=== PATIENT | female | born 1975 | race Caucasian/White ===

== ENCOUNTER 2017-06-30 05:36 | Day surgery (SDC) | payer MEDICARE, SELFPAY ==
--- NOTE | 2017-06-24 12:10 | EKG12_ITS ---
Test Reason : PRE OP Blood Pressure : / mmHG Vent. Rate : 062 BPM Atrial Rate : 062 BPM P-R Int : 140 ms QRS Dur : 084 ms QT Int : 410 ms P-R-T Axes : 062 017 067 degrees QTc Int : 416 ms Normal sinus rhythm Normal ECG Confirmed by JOSE MARIA CASTILLO, ADA ([id number]), slot editor JOSIE ZAMAN ([id number]) on 06/28/2017 8:39:45 AM Referred By: NIA Confirmed By:ADA MOISE MD
[2017-06-24 12:19] LABS: Hematocrit 41.9 % (37-47); Hemoglobin 13.8 g/dl (12.0-15.0); Mean Corp Hgb Conc 32.9 g/gl (32-36); Mean Corpuscular Hgb 31.7 pg (27.0-32.0); Mean Corpuscular Volume 96.1 fL (81-99); Mean Platelet Vol. 9.4 fl (6.2-12.0); Platelet Count 275 K/mm3 (150-450); RBC Distribution Width CV 12.6 % (11.6-14.6); RBC Distribution Width SD 43.1 fl (35.1-43.9); Red Blood Count 4.36 M/mm3 (4.2-5.4); Scan Indicated on CBC? Y/N NO; White Blood Count 7.4 K/mm3 (4.4-11.0)
[2017-06-24 12:34] LABS: International Normalized Ratio 0.9; Prothrombin Time (Protime)PT. 12.2 SECONDS (11.7-14.9)
[2017-06-24 12:48] LABS: ALB/GLOB Ratio 0.9 RATIO (0.9-2.4); AST(SGOT) 23 U/L (15-37); Alanine Aminotransfer ALT/SGPT 30 U/L (12-78); Albumin, Serum 3.4 g/dL (3.4-5.0); Alkaline Phosphatase 78 U/L (45-117); Anion Gap 6 (5-15); BUN 10 mg/dL (7-18); BUN/Creat Ratio 15.4 RATIO (10-20); Bilirubin, Direct 0.09 mg/dL (0.00-0.30); Calcium,Total 8.6 mg/dL (8.5-10.1); Chloride 101 mmol/L (98-107); Creatinine, Serum 0.65 mg/dL (0.55-1.02); EST Glomerular Filtration Rate 107 mL/min (>60); Est Glom Filt Rate - Afr Amer 130 mL/min (>60); Globulin 3.9 g/dL (2.3-3.5); Glucose 91 mg/dL (70-110); Potassium 4.3 mmol/L (3.5-5.1); Protein, Total 7.3 g/dL (6.4-8.2); Sodium Level 139 mmol/L (136-145)
[2017-06-24 12:58] LABS: Pregnancy, Serum, hCG Quali. NEGATIVE Negative (0-9 Nonpreg)
[2017-06-30] VITALS (12 sets, daily range): BP systolic 121–144; BP diastolic 73–90; PULSE 65–87; RESP 16–18; TEMP 36.2–37.1; O2SAT 93–100; BMI 32.0
--- NOTE | 2017-06-30 08:15 | OP.PCM_ITS ---
Report of Operation Date of Procedure: 06/30/17 Pre-Operative Diagnosis: Chronic pelvic pain, dysmenorrhea Post-Operative Diagnosis: same Surgery/Procedure Performed:: LAVH, bilateral salpingectomy Description of Surgical Findings:: Enlarged uterus. Normal ovaries and fallopian tubes. Gallbladder surgically absent. Normal appearing liver. Stomach s/p gastroplasty. Only minimal upper abdominal scarring present. assistant public defender: Rose Davis Type of Anesthesia:: General Anesthesiologist: Jeronimo Gonzalez Special Medications: pitressin injection Specimen's removed: Uterus, cervix, bilateral fallopian tubes Drains: lyon Estimated Blood Loss (mL): 50cc Fluids Replaced: 1600cc Description of Procedure: Patient was taken to the OR with IV running. She was given IV antibiotics prior to the surgery for surgical prophylaxis. SCDs were in place and operational. General anesthesia was introduced without complication. She was then prepped and draped in the dorsal lithotomy position. A lyon catheter was then placed. A weighted speculum was placed in the posterior vagina and the cervix identified and the anterior lip grasped with a single toothed tenaculum. A uterine manipulator was then placed. The speculum was removed. Attention was then directed to the abdomen. A 5mm vertical incision was made in the lower base of the umbilicus. The underlying subcutaneous tissue was dissected down to the level of fascia using a Reny clamp. The abdominal wall was then elevated and a Veress needle was placed. The abdomen was then insufflated with CO2 gas to a pressure of 12 mm Hg pressure. The Veress needle was then removed and replaced with a 5mm trocar and sleeve. The trocar was removed and a laparoscope was placed. A thorough survey of the abdomen and pelvis was then performed. Findings were as mentioned above. Two lateral 5mm laparoscopic ports were then placed approximately 3 cmm below the level of the umbilicus, lateral to the epigastric vessels. Hemostasis was excellent after placement of the ports. Attention was then directed to the left fallopian tube which was grasped and elevated. The mesosalpinx was then serially dissected with the Ligasure device from the fimbriated end to the cornua of the uterus. The left round ligament was then cauterized and cut. The broad ligament was then dissected from the cornua of the uterus close to the uterus to the level of the [id number] junction. The anterior and posterior leaves were then bluntly. The vesicouterine peritoneum was then undermined using blunt dissection. It was cut in a transverse fashion and a bladder flap was created. The left uterine artery was then cauterized and cut. The paracervical tissue was dissected down to the level of the uterosacral ligaments close to the cervix. In s similar fashion to the left side the right fallopian tube and right broad ligament were dissected. The right uterine artery was cauterized and cut. The right paracervical tissue was then dissected to the level of the right uterosacral ligament. Attention was then directed back to the vagina where a weighted speculum was placed. The uterine manipulator was removed. The cervix was grasped with two single toothed tenaculum. The cervicovaginal epithelium was then injected superficially with a dilute pitressin solution. Using the Bovie cautery the cervicovaginal epithelium was dissected circumfrentially. This tissue was pushed superiorly. The vesicouterine peritoneum was then identified and entered sharply. The posterior rectovaginal peritoneum was identified and entered sharply. A long weighted speculum was placed in the posterior defect. The uterosacral ligaments were then grasped with Justin clamps cut and suture ligated. These sutures were held for incorporation into the vagina cuff. The remaining paracervical tissue was clamped bilaterally with the Justin clamps, cut, and suture ligated. The specimen was then removed en bulk. The peritoneum was then reapproximated in the midline from anterior to posterior. The vaginal mucosa was closed in the midline with a single stitch of 0-vicryl. The cuff angles were closed with 0- vicryl interrupted sutures and incorporated in this tie was the previous held uterosacral ligament ties. The remaining vaginal cuff was reapproximated with figure of eight sutures of 0-vicryl. Hemostasis was assured in the vagina. Attention was directed back to the abdomen which again was insufflated with CO2 gas. A thorough survey of all pedicle sites found them to be hemostatic. The port sites were removed with direct visualization with the laparoscope with good hemostasis noted. The port sites were closed with subcutaneous sutures of 4-0 monocryl. The port sites were injected with 0.25% Marcaine for anesthetic purposes. The patient was reversed from anesthesia without complication. Sponge, lap, and needle counts were correct. She was taken to the recovery room in stable condition. - Complications none - Admit VTE Documentation VTE Present on Admission: No VTE Mechan Device Prophylaxis: SCD's VTE Pharm Prophylaxis ordered?: No
[2017-06-30 11:10] LABS: Pregnancy, Serum, hCG Quali. NEGATIVE Negative (0-9 Nonpreg)
--- NOTE | 2017-06-30 12:11 | PCM.DC.VHY ---
Discharge Diet: No Restrictions Discharge Activity: Return to Normal Activity, May Not Drive, May not drive while taking narcotic pain medications., May Shower Return to work on:: 08/01/17 May shower in (days): 0 May resume sexual activity in: 6 weeks Call your doctor if your incision/area has: Sudden Increased Bleeding, Increased Pain/ Swelling, Increased Redness, Foul Smelling Discharge, Swelling at the incision site Call your doctor if you observe: Fever of 101 or Higher, Inability to urinate, Inability to have a bowel movement, Using more than one pad per hour, Shortness of breath, Chest pain, Calf discomfort, Uncontrolled pain Remove Dressing in (days):: 1 Cleanse incision/area with: Soap & Water Allergies/Adverse Reactions: Allergies Penicillins [PCN] Allergy (Verified 06/23/17 14:09) Rash RAPID HEARTRATE silicone [Silicone] Allergy (Verified 06/23/17 14:09) Rash doxycycline Adverse Reaction (Verified 06/23/17 14:09) Other RAPID HEARTRATE hydrochlorothiazide Adverse Reaction (Verified 06/23/17 14:09) Other topiramate [From Topamax] Adverse Reaction (Verified 06/23/17 14:42) Chest tightness Medications to take at Discharge Duloxetine Hcl [Cymbalta] 60 mg PO BID 06/19/13 Ergocalciferol [Vitamin D] 50,000 unit PO Q7D 06/19/13 Iron 325 mg PO BID 06/19/13 Levothyroxine [Synthroid] 50 mcg PO DAILY 06/19/13 Omeprazole [Prilosec] 20 mg PO BID 06/19/13 Biotin 10 mg PO DAILY 12/22/13 Calcium Citrate/Vitamin D3 [Calcium Citrate-Vit D3 Tablet] 2 each PO BID 06/23/17 Cyanocobalamin (Vitamin B-12) [Vitamin B-12] 500 mcg PO DAILY 06/23/17 HydrOXYzine TESFAYE [Vistaril] 25 mg PO TID PRN PRN 06/23/17 Magnesium 500 mg PO DAILY 06/23/17 Pnv95/Ferrous Fumarate/FA [ Formula Tablet] 1 each PO DAILY 06/23/17 Tizanidine HCl [Zanaflex] 4 mg PO BID 06/23/17 Oxycodone [Oxyir] 10 mg PO Q6H PRN PRN #40 tablet 10/19/17 The following prescriptions were given: Oxycodone [Oxyir] 10 mg PO Q6H PRN PRN #40 tablet PRN Reason: Pain Primary Care Physician: Ronnell Moreno MD [Primary Care Provider] - Please Follow Up With: Boubacar Platt MD When: one week Proposed Discharge Date: 07/01/17
[2017-06-30] MEDS: Clindamycin 900 MG/50 ML BAG 75 MG IV (12:22)
--- NOTE | 2017-06-30 12:41 | HYST_PTH ---
PATIENT: ALFONSO TORO LOC: [facility] [place][id number] AGE/SX: 41/F ROOM: RE06/30/[address]: Dr. Boubacar Platt MD : [id number] BED: DIS: 07/01/2017 SPEC #: [id number] RECD: 06/30/17 15:32 STATUS: FAN RAUL #: [id number] LUTHER: 06/30/17 12:[address]: Boubacar Platt DEPT: SURGICAL PATHOLOGY RECD BY: Everett Kent ENTERED: 07/01/17 12:38 SP TYPE: HYSTERECT OTHR DR: Dr. Ronnell Moreno MD Tissues: Uterus, NOS Procedures: Surgery Specimen Level V HEADER OPERATION: Hysterectomy, lap, vaginal, salpingectomy PRE-OP DIAGNOSIS: Excessive and frequent menstruation with regular cycle TISSUE SUBMITTED: Uterus and bilateral fallopian tubes MICROSCOPIC DIAGNOSIS Uterus, hysterectomy: Cervix - squamous metaplasia, mild chronic inflammation and nabothian cyst. Endometrium - proliferative endometrium. Myometrium - leiomyoma and superficial adenomyosis. Bilateral fallopian tubes - no significant change. AM:rasheed 07/04/17 MICROSCOPIC DESCRIPTION Slides are reviewed. GROSS DESCRIPTION Received in fixative is one container labeled with the patient's name and designated uterus and bilateral fallopian tubes. The specimen consists of a hysterectomy specimen consisting of uterus with cervix and attached bilateral fallopian tubes. The uterus with cervix weighs 162 gm and measures 10 x 7 x 5.5 cm. The serosal surface is hassan, glistening. The ectocervical mucosa is unremarkable. The external os is oval in contour. The endocervical canal measures 3.5 cm in length and the endocervical mucosa is hassan, glistening and unremarkable. The triangular endometrial cavity measures 4.5 cm in length and 2.5 cm in width. The endometrium is congested, hemorrhagic and measures 0.1 cm in thickness. Sections of the uterine wall reveal a small hassan, nodular mass measuring 0.3 cm in greatest dimension. The uterine wall measures up to 2.5 cm in thickness. The right fallopian tube measures 6 cm in length and 0.8 cm in diameter. The fimbrial end is identified. Sections of the proximal end of the fallopian tube reveals a metallic coiled wire consistent with Essure device. The left fallopian tube measures 5.5 cm in length and 0.6 cm in diameter. The fimbrial end is identified. Sections of the proximal end of the fallopian tube also reveals a metallic coiled wire consistent with Essure device. Sections reveal unremarkable cut surfaces. House Shorer sections are submitted in nine cassettes as follows: 1 - anterior cervix, 2 - posterior cervix, 3 & 4 - anterior uterine wall, 5 & 6 - posterior uterine wall, 7 - nodular mass, entirely submitted, 8 - right fallopian tube, 9 - left fallopian tube. / GREG:rasheed 07/01/17 TC:1 CPT: 31401
[2017-06-30] MEDS: Bupivacaine 0.25% 30 ML Vial (12:58)
[2017-06-30] MEDS: Vasopressin 20 UNITS/ML Vial (12:59)
[2017-06-30] MEDS: Ketorolac 30 MG/ML Syringe IV ×3 (14:50→23:41)
[2017-06-30] MEDS: Lactated Ringers 1,000 ML 125 ML IV ×2 (15:05→17:56)
[2017-06-30] MEDS: Clindamycin 600 MG/50 ML BAG 100 MG IV ×2 (17:56→23:42)
[2017-06-30] MEDS: tiZANidine HCl 2 MG Tablet 4 MG PO (21:22)
[2017-06-30] MEDS: DULoxetine Hcl 60 MG Capsule PO (21:22)
[2017-07-01 01:45] VITALS: BP 113/72; PULSE 68; RESP 16; TEMP 36.8; O2SAT 96
[2017-07-01] MEDS: Levothyroxine 50 MCG Tablet PO (05:38)
[2017-07-01] MEDS: Ketorolac 30 MG/ML Syringe IV ×2 (05:38→12:59)
[2017-07-01 07:10] VITALS: O2SAT 96
[2017-07-01 07:34] LABS: Hematocrit 38.9 % (37-47); Hemoglobin 12.8 g/dl (12.0-15.0); Mean Corp Hgb Conc 32.9 g/gl (32-36); Mean Corpuscular Hgb 31.5 pg (27.0-32.0); Mean Corpuscular Volume 95.8 fL (81-99); Mean Platelet Vol. 10.1 fl (6.2-12.0); Platelet Count 250 K/mm3 (150-450); RBC Distribution Width CV 12.3 % (11.6-14.6); RBC Distribution Width SD 42.1 fl (35.1-43.9); Red Blood Count 4.06 M/mm3 (4.2-5.4); White Blood Count 15.3 K/mm3 (4.4-11.0)
[2017-07-01 07:35] LABS: Scan Indicated on CBC? Y/N NO
--- NOTE | 2017-07-01 07:37 | PCM.PROGNOTE ---
Subjective: POD#1 LAVH, Bilateral salpingectomy Doing well. IV out. Lion removed and has voided a sm amt immediately afterwards. Minimal pain and has had toradol only overnight. Denies any N/V and feels well. - Physical Exam General: Alert, Oriented x3, Cooperative, No apparent distress HEENT: Atraumatic Neck: Supple Abdomen: Soft Skin: Incision - L/S incisions CDI. OP sites over steristrips. Neurological: Cranial nerves II-XII grossly intact Psych/Mental Status: Normal Affect Vital Signs Temp Pulse Resp BP Pulse Ox 98.3 F 68 16 113/72 96 07/01/17 01:45 07/01/17 01:45 07/01/17 01:45 07/01/17 01:45 07/01/17 07:10 Oxygen Flow Rate 2 Oxygen Delivery Method Room Air Weight: 84.7 kg Body Mass Index (BMI) 32.0 Intake and Output for Last 24 Hours 06/29/06/30/07/01/17 23:59 23:59 23:59 Intake Total 4665 1451 Output Total 875 875 Balance 3790 576 Laboratory Tests Past 24 Hrs 06/30/17 07/01/17 10:40 07:00 WBC 15.3 H RBC 4.06 L Hgb 12.8 Hct 38.9 MCV 95.8 MCH 31.5 MCHC 32.9 RDW 12.3 RDW Differential 42.1 Plt Count 250 MPV 10.1 Serum , Qual NEGATIVE Assessment/Plan POD#1 LAVH, bilateral salpingectomy Stable postop. Dischg home today if voiding, pain control adequate and tolerating po. RTO in 1-2 wk for postop incision check as planned.
--- NOTE | 2017-07-01 07:40 | PCM.DC.SUM ---
Discharge Date and Diagnosis Date of Admission: 06/30/17 - LAVH, Bilateral salpingectomy Date of Discharge: 07/01/17 Hospital Course and Treatment Operations: - - LAVH, bilateral salpingectomy Summary of Care Provided: The patient is a 41 year old F admitted 06/30/17 for LAVH bilateral salpingectomy. Procedure uneventful. Minimal pain overnight. No N/V. Dischg to home on POD#1 when criteria met. RTO in 1-2 wk for postop incision check, or prn sooner. Discharge Diet: No Restrictions Discharge Activity: Return to Normal Activity, May Not Drive, May not drive while taking narcotic pain medications., May Shower Return to work on:: 08/01/17 May shower in (days): 0 May resume sexual activity in: 6 weeks Call your doctor if your incision/area has: Sudden Increased Bleeding, Increased Pain/ Swelling, Increased Redness, Foul Smelling Discharge, Swelling at the incision site Call your doctor if you observe: Fever of 101 or Higher, Inability to urinate, Inability to have a bowel movement, Using more than one pad per hour, Shortness of breath, Chest pain, Calf discomfort, Uncontrolled pain Remove Dressing in (days):: 1 Cleanse incision/area with: Soap & Water Home Medications: Medications to take at Discharge Duloxetine Hcl [Cymbalta] 60 mg PO BID 06/19/13 Ergocalciferol [Vitamin D] 50,000 unit PO Q7D 06/19/13 Iron 325 mg PO BID 06/19/13 Levothyroxine [Synthroid] 50 mcg PO DAILY 06/19/13 Omeprazole [Prilosec] 20 mg PO BID 06/19/13 Biotin 10 mg PO DAILY 12/22/13 Calcium Citrate/Vitamin D3 [Calcium Citrate-Vit D3 Tablet] 2 each PO BID 06/23/17 Cyanocobalamin (Vitamin B-12) [Vitamin B-12] 500 mcg PO DAILY 06/23/17 HydrOXYzine TESFAYE [Vistaril] 25 mg PO TID PRN PRN 06/23/17 Magnesium 500 mg PO DAILY 06/23/17 Pnv95/Ferrous Fumarate/FA [ Formula Tablet] 1 each PO DAILY 06/23/17 Tizanidine HCl [Zanaflex] 4 mg PO BID 06/23/17 Oxycodone [Oxyir] 10 mg PO Q6H PRN PRN #40 tablet 06/30/17 Acetaminophen [Tylenol] 1,000 mg PO Q8H PRN PRN tablet 07/01/17 Docusate Sodium [Colace] 100 mg PO BID #30 capsule 07/01/17 Oxycodone [Oxyir] 5 - 10 mg PO Q4H PRN PRN tablet 07/01/17 Following Prescrptions Were Given to Patient: Oxycodone [Oxyir] 10 mg PO Q6H PRN PRN #40 tablet PRN Reason: Pain Docusate Sodium [Colace] 100 mg PO BID #30 capsule Primary Care Physician: Ronnell Moreno MD [Primary Care Provider] - Please Follow Up With: Boubacar Platt MD When: one week Meaningful Use Info Meaningful Use Diagnoses (Choose all that apply): None applicable
[2017-07-01 07:45] VITALS: BP 120/78; PULSE 96; RESP 17; TEMP 37.4; O2SAT 98
[2017-07-01] MEDS: DULoxetine Hcl 60 MG Capsule PO (08:19)
[2017-07-01] MEDS: tiZANidine HCl 2 MG Tablet 4 MG PO (08:19)
[2017-07-01] MEDS: Pantoprazole Sodium 20 MG Tablet PO (08:19)
[2017-07-01] MEDS: oxyCODONE 5 MG Tablet PO (09:22)
[2017-07-01 13:00] VITALS: BP 114/78; PULSE 72; RESP 16; TEMP 36.7; O2SAT 99
[2017-07-01 13:49] VITALS: BP 114/78; PULSE 72; RESP 16; TEMP 36.7; O2SAT 99
== END 2017-07-01 13:43 | disposition home or self-care (01) ==
PROVIDERS: Family Provider Family Medicine; PCP Family Medicine; Visit Provider Obstetrics & Gynecology
DX: D26.1 Other benign neoplasm of corpus uteri (principal); G89.29 Other chronic pain; R10.2 Pelvic and perineal pain; N92.0 Excessive and frequent menstruation with regular cycle; N94.6 Dysmenorrhea, unspecified; N88.8 Other specified noninflammatory disorders of cervix uteri; K21.9 Gastro-esophageal reflux disease without esophagitis; D64.9 Anemia, unspecified; F32.9 Major depressive disorder, single episode, unspecified; Z98.84 Bariatric surgery status; Z86.718 Personal history of other venous thrombosis and embolism
CPT/HCPCS: 58552; 36415; 80053; 82248; 84703; 85027; 85610; 85730; 86850; 86900; 88307; 93005; 97802; J7120; J2405

== ENCOUNTER → 2017-11-03 15:57 | Outpatient (CLI) | payer MEDICARE, SELFPAY ==
[2017-11-03 17:53] LABS: Absolute Lymphocyte Count 1.84 X10^3/ul (0.83-4.51); Absolute Neutrophil Count 5.7 X10^3/uL (2.0-7.7); Basophil# 0.03 X10^3/uL; Basophil% 0.4 % (0-1); Eosinophil# 0.16 X10^3/uL; Eosinophils% 1.9 % (0-5); Hematocrit 40.7 % (37-47); Hemoglobin 13.8 g/dl (12.0-15.0); Lymphocyte # 1.84 X10^3/ul (4.0); Lymphocyte % 22.4 % (19-41); Mean Corp Hgb Conc 33.9 g/gl (32-36); Mean Corpuscular Volume 94.4 fL (81-99); Mean Platelet Vol. 10.1 fl (6.2-12.0); Monocyte# 0.45 X10^3/uL; Monocyte% 5.5 % (0-10); Neutrophil # 5.74 X10^3/uL (2.7-7.7); Neutrophil % 69.7 % (47-70); Platelet Count 281 K/mm3 (150-450); RBC Distribution Width CV 12.7 % (11.6-14.6); RBC Distribution Width SD 42.8 fl (35.1-43.9); Red Blood Count 4.31 M/mm3 (4.2-5.4); White Blood Count 8.2 K/mm3 (4.4-11.0)
[2017-11-03 17:59] LABS: POSITIVE COUNT NO; POSITIVE DIFFERENTIAL NO; POSITIVE MORPHOLOGY NO
[2017-11-03 18:07] LABS: Free T3 2.3 pg/mL (2.18-3.98); T4 Total, Thyroxin 9.2 ug/dL (4.8-13.9)
== END ==
PROVIDERS: Family Provider Family Medicine; PCP Family Medicine; Visit Provider Family Medicine
DX: E03.9 Hypothyroidism, unspecified (principal); R53.83 Other fatigue
CPT/HCPCS: 36415; 84436; 84443; 84481; 85025

== ENCOUNTER → 2018-03-24 17:49 | Outpatient (CLI) | payer MEDICARE, SELFPAY | PROVIDERS: Family Provider Family Medicine; PCP Family Medicine; Visit Provider Family Medicine | DX: L02.91 Cutaneous abscess, unspecified (principal) | CPT/HCPCS: 87070; 87205 ==

== ENCOUNTER → 2018-05-03 10:36 | Outpatient (CLI) | payer MEDICARE, SELFPAY | PROVIDERS: Family Provider Family Medicine; PCP Family Medicine; Visit Provider Family Medicine | DX: L02.91 Cutaneous abscess, unspecified (principal) | CPT/HCPCS: 87070; 87077; 87186; 87205 ==

== ENCOUNTER → 2018-06-01 13:56 | Outpatient (CLI) | payer MEDICARE, SELFPAY | PROVIDERS: Family Provider Family Medicine; PCP Family Medicine; Visit Provider Surgery | DX: L02.31 Cutaneous abscess of buttock (principal) | CPT/HCPCS: 87070; 87075; 87077; 87186; 87205 ==

== ENCOUNTER → 2018-07-20 10:21 | Outpatient (CLI) | payer MEDICARE, SELFPAY | PROVIDERS: Family Provider Family Medicine; PCP Family Medicine; Referring Provider Physician Assistant; Visit Provider Physician Assistant | DX: L02.31 Cutaneous abscess of buttock (principal) | CPT/HCPCS: 87070; 87075; 87186; 87205 ==

== ENCOUNTER → 2018-07-27 16:28 | Outpatient (CLI) | payer MEDICARE, SELFPAY | PROVIDERS: Family Provider Family Medicine; PCP Family Medicine; Referring Provider Surgery; Visit Provider Surgery | DX: L02.31 Cutaneous abscess of buttock (principal) | CPT/HCPCS: 87070; 87075; 87077; 87186; 87205 ==

== ENCOUNTER → 2018-08-11 15:15 | Outpatient (CLI) | payer MEDICARE, SELFPAY ==
--- OUTSIDE RECORDS SUMMARY | 2018-10-06 14:26 | XMS RPT_ITS ---
:1975 Author Organization OHIP Support Name Relationship Address Phone D Unavailable Unavailable Unavailable JON BEAL Unavailable [address] + [place] [address] D Unavailable Unavailable Unavailable JON BEAL Unavailable [address] + [place] [address] D Unavailable Unavailable Unavailable JON BEAL Unavailable [address] + [place] [address] D Unavailable Unavailable Unavailable JON BEAL Unavailable [address] + [place] [address] D Unavailable Unavailable Unavailable JON BAEL Unavailable [address] + [place] [address] D Unavailable Unavailable Unavailable JON BEAL Unavailable [address] + [place] [address] D Unavailable Unavailable Unavailable JON BEAL Unavailable [address] + [place] [address] D Unavailable Unavailable Unavailable JON BEAL Unavailable [address] + [place] [address] D Unavailable Unavailable Unavailable JON EBAL Unavailable [address] + [place] [address] D Unavailable Unavailable Unavailable JON BEAL Unavailable [address] + [place] [address] D Unavailable Unavailable Unavailable JON BEAL Unavailable [address] + [place] [address] D Unavailable Unavailable Unavailable JON BEAL Unavailable [address] + [place] [address] D Unavailable Unavailable Unavailable JON BEAL Unavailable [address] + [place] [address] D Unavailable Unavailable Unavailable JON BEAL Unavailable [address] + [place] [address] D Unavailable Unavailable Unavailable JON BEAL Unavailable [address] + [place] [address] D Unavailable Unavailable Unavailable JON BEAL Unavailable [address] + [place] [address] D Unavailable Unavailable Unavailable JON BEAL Unavailable [address] + [place] [address] D Unavailable Unavailable Unavailable JON BEAL Unavailable [address] + [place] [address] JON BOWSER Unavailable Unavailable + D Unavailable Unavailable Unavailable JON BEAL Unavailable [address] + [place] [address] JON BOWSER Unavailable Unavailable + D Unavailable Unavailable Unavailable JON BEAL Unavailable [address] + [place] [address] Care Team Providers Name Role Phone Marielle, Dr. Melissa Medrano Attending Unavailable Marielle, Melissa Medrano Admitting Unavailable Marielle, Melissa Medrano Attending Unavailable Melissa Palomares Referring Unavailable Josh, Dr. Ronnell Moreno Primary Care Unavailable Moreno, Ronnell Attending Unavailable MorenoRonnell jo Primary Care Unavailable Ronnell Moreno Attending Unavailable MorenoRonnell jo Primary Care Unavailable Ronnell Moreno Referring Unavailable Ronnell Moreno Attending Unavailable Ronnell Moreno Referring Unavailable Ronnell Moreno Primary Care Unavailable Robotham, Florence Attending Unavailable MorenoRonnell jo Referring Unavailable MorenoRonnell jo Primary Care Unavailable Robotham, Florence Attending Unavailable Robotham, Florence Referring Unavailable MorenoRonnell jo Primary Care Unavailable Robotham, Florence Attending Unavailable Ronnell Moreno Referring Unavailable Robotham, Florence Attending Unavailable Ronnell Moreno Primary Care Unavailable Robotham, Florence Referring Unavailable Robotham, Florence Attending Unavailable MorenoRonnell Referring Unavailable Robotham, Florence Attending Unavailable MorenoRonnell Referring Unavailable Robotham, Florence Attending Unavailable Robotham, Florence Attending Unavailable MorenoRonnell jo Referring Unavailable Robotham, Florence Attending Unavailable Robotham, Florence Referring Unavailable Luis Alberto Platt Attending Unavailable Luis Alberto Platt Referring Unavailable MorenoRonnell jo Primary Care Unavailable Robotham, Florence Attending Unavailable Rc MCKEON-CPhilomena Attending Unavailable Rc LINDO, Philomena Referring Unavailable Ronnell Moreno Primary Care Unavailable Robotham, Florence Attending Unavailable LEO GRADY Referring Unavailable Robotham, Florence Attending Unavailable Robotham, Florence Referring Unavailable Moreno, Ronnell Primary Care Unavailable Robotham, Florence Attending Unavailable Robotham, Florence Attending Unavailable Robotham, Florence Referring Unavailable Moreno, Rnonell Primary Care Unavailable Robotham, Florence Attending Unavailable Moreno, Ronnell Referring Unavailable GORTY, BELKYS A Referring Unavailable GORTY, BELKYS A Attending Unavailable GORTY, BELKYS A Referring Unavailable BHARTI WELSH (RD) Attending Unavailable GORTY, BELKYS A Referring Unavailable THUY LEMON (ROLL WEIGHER) Attending Unavailable DAO NOLAN (GOLD BEATER) Attending Unavailable CEBUL III, MICHELLE A Referring Unavailable GORTY, BELKYS A Attending Unavailable GORTY, BELKYS A Referring Unavailable BHARTI WELSH (RD) Attending Unavailable GORTY, BELKYS A Referring Unavailable GORTY, BELKYS A Referring Unavailable GORTY, BELKYS A Attending Unavailable GORTY, BELKYS A Referring Unavailable GORTY, BELKYS A Referring Unavailable Vick, [place] P Attending Unavailable Cebul, Michelle A Primary Care Unavailable Vick, Mao P Attending Unavailable Cebul, Michelle A Primary Care Unavailable Von Nolan Attending Unavailable Cebul, Michelle A Primary Care Unavailable Vick, [place] P Attending Unavailable Vick, [place] P Attending Unavailable Vick, [place] P Attending Unavailable Vick, Mao P Attending Unavailable Cebul, Michelle A Primary Care Unavailable Von Nolan Attending Unavailable Cebul, Michelle A Primary Care Unavailable PROBLEMS PROBLEMS DATE TYPE CONDITION / CODE ATTENDING STATUS SOURCE 08/11/2018 Unknown L02.31 - Cutaneous [place], Active [place] abscess of buttock [facility] Community / L02.31(ICD-10) Hospital Repository 06/27/2018 Unknown L02.91 - Cutaneous [place]am, Active [place] abscess, [place] Community unspecified / Hospital L02.91(ICD-10) Repository 04/17/2018 Active Liver disease, NA Active [place] unspecified / Clinic Main K76.9(ICD-10) [place] Repository 04/17/2018 Active Overweight / NA Active [place] E66.3(ICD-10) Clinic Main [place] Repository 07/29/2015 Active Hypothyroidism, NA Active [place] unspecified / Clinic Main E03.9(ICD-10) [place] Repository 01/20/2011 Active Vitamin D NA Active [place] deficiency, Clinic Main unspecified / [place] E55.9(ICD-10) Repository 02/10/2018 Active Other injury of NA Active [place] unspecified body Clinic Main region, initial [place] encounter / Repository T14.8XXA(ICD-10) 02/10/2018 Active Unknown / DAO NOLAN Malik Active [facility] UNK(Unknown) (GOLD BEATER) Clinic Main [place] Repository 01/20/2018 Admitting Unknown / Vick, Active [facility] Medical diagnosis UNK(Unknown) [facility] [place] Repository 12/13/[address] 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, not Clinic Main elsewhere [place] classified / Repository K91.2(ICD-10) 11/25/2017 Active Bariatric surgery NA Active [place] status / Clinic Main Z98.84(ICD-10) [place] Repository 11/03/2017 Unknown E03.9 - Ronnell Moreno Active [facility] Hypothyroidism, Community unspecified / Hospital E03.9(ICD-10) Repository 11/03/2017 Unknown R53.83 - Other Ronnell Moreno Active [facility] fatigue / Community R53.83(ICD-10) Hospital Repository PROCEDURES PROCEDURES No Procedure Records FoundRESULTS RESULTS SURGERY VISIT REPORT Observed: 08/25/2018 Status: F Source: [place] 2:25 PM [facility] REPOSITORY [facility] [address] [place] [address]. [address] [place] [address] OFFICE VISIT Date of Service: 08/18/18 MR#: [id number] Acct: [id number] Name: TASHA TORO Rep #: [id number] : 1975 Provider: [place] Mario MD Age/Sex: 42/F Location: [facility] Status: Signed Intake Intake Visit Reasons: buttock abscess Farm Reporter Required: No Is patient in pain?: No Allergies Penicillins [PCN] Allergy (Verified 08/21/18 09:01) Rash silicone [Silicone] Allergy (Verified 08/21/18 09:01) Rash doxycycline Adverse Reaction (Verified 08/21/18 09:01) Other hydrochlorothiazide Adverse Reaction (Verified 08/21/18 09:01) Other topiramate [From Topamax] Adverse Reaction (Verified 08/21/18 09:01) Chest tightness Medications Duloxetine Hcl [Cymbalta] 60 mg PO BID 06/19/13 [History Confirmed 08/21/18] Ergocalciferol [Vitamin D] 50,000 unit PO Q7D 06/19/13 [History Confirmed 08/21/18] Iron 325 mg PO BID 06/19/13 [History Confirmed 08/21/18] Levothyroxine [Synthroid] 50 mcg PO DAILY 06/19/13 [History Confirmed 08/21/18] Omeprazole [Prilosec] 20 mg PO BID 06/19/13 [History Confirmed 08/21/18] Biotin 10 mg PO DAILY 12/22/13 [History Confirmed 08/21/18] Calcium Citrate/Vitamin D3 [Calcium Citrate-Vit D3 Tablet] 2 ea PO BID 06/23/17 [History Confirmed 08/21/18] Cyanocobalamin (Vitamin B-12) [Vitamin B-12] 500 mcg PO DAILY 06/23/17 [History Confirmed 08/21/18] Magnesium 500 mg PO DAILY 06/23/17 [History Confirmed 08/21/18] Pnv No.95/Ferrous Fum/Folic AC [ Formula Tablet] 1 ea PO DAILY 06/23/17 [History Confirmed 08/21/18] Tizanidine HCl [Zanaflex] 4 mg PO BID 06/23/17 [History Confirmed 08/21/18] hydrOXYzine pamoate capsule [Vistaril pamoate capsule] 25 mg PO TID PRN PRN 06/23/17 [History Confirmed 08/21/18] Acetaminophen [Tylenol] 1,000 mg PO Q8H PRN PRN tab 07/01/17 [Rx Confirmed 08/21/18] Docusate Sodium [Colace] 100 mg PO BID #30 cap 07/01/17 [Rx Confirmed 08/21/18] zonisamide 100 mg capsule 400 mg PO DAILY cap 05/08/18 [History Confirmed 08/21/18] metronidazole 500 mg tablet 500 mg PO TID #42 tab 06/27/18 [Rx Confirmed 08/21/18] doxycycline monohydrate 100 mg capsule 100 mg PO BID #20 cap 08/18/18 [Rx Confirmed 08/18/18] [facility] Medical History Hx of hysterectomy (Acute) Hemorrhoids (Acute) Acid reflux (Acute) Anxiety (Acute) Arthritis (Acute) Thyroid disorder (Acute) Surgical History Hx of gastric bypass (Acute) Hx of cholecystectomy (Acute) History of carpal tunnel surgery of left wrist (Acute) I AND D right buttock abscess (Acute) Family History Mother Diabetes Cancer Hypertension Heart disease Father Heart disease Hypertension Brother Hypertension Asthma Social History Smoking Status: Never smoker second hand exposure: No alcohol intake: never substance use type: does not use caffeine: Yes what type of physical activity do you participate in: walking seatbelt use: always HPI HPI HPI: TASHA DE, is a 42 F who presents to the office today for right buttock abscess patient still having greenish drainage with packing twice daily with half inch iodoform. Patient has stopped the sits baths and only uses saline to irrigate before packing. Patient denies any pain at site Exam Const General: cooperative, comfortable, no acute distress Skin Other: Right buttock abscess, I AND D site superficially healing well, depth is still about 2 and half centimeters, still has some greenish drainage on pack seen., Nontender Assessment AND Plan Problems 1. Abscess of buttock, right L02.31 Plan We will continue packing with iodoform twice daily along with saline irrigation. Will call in prescription for Doxycycline 100 mg p.o. twice daily for another 10 days. Follow-up in 1 week Florence Mario M.D. Pager: [phone] [facility] [address] [place] [address], Outpatient [place], [address] [place] [id number] Office: [phone] Medications Refilled: Coding Level of Care Code Off vis,est,level 3 Diagnoses Abscess of buttock, right L02.31 08/25/18 3495 <Electronically signed by Florence Mario MD> Date Florence Mario MD Cosigner Signature: Date (if applicable) CC: SURGERY VISIT REPORT Observed: 08/25/2018 Status: F Source: [place] 2:22 PM [facility] REPOSITORY [facility] [address] [place] [address]. [address] [place] [address] OFFICE VISIT Date of Service: 08/25/18 MR#: [id number] Acct: [id number] Name: TASHA TORO Porsche Rep #: [id number] : 1975 Provider: Florence Mario MD Age/Sex: 42/F Location: [facility] Status: Signed Intake Intake Visit Reasons: buttock abscess Chief Complaint: I AND D buttock abscess Farm Reporter Required: No Accompanied by: None Is patient in pain?: No Allergies Penicillins [PCN] Allergy (Verified 08/21/18 09:01) Rash silicone [Silicone] Allergy (Verified 08/21/18 09:01) Rash doxycycline Adverse Reaction (Verified 08/21/18 09:01) Other hydrochlorothiazide Adverse Reaction (Verified 08/21/18 09:01) Other topiramate [From Topamax] Adverse Reaction (Verified 08/21/18 09:01) Chest tightness Medications Duloxetine Hcl [Cymbalta] 60 mg PO BID 06/19/13 [History Confirmed 08/21/18] Ergocalciferol [Vitamin D] 50,000 unit PO Q7D 06/19/13 [History Confirmed 08/21/18] Iron 325 mg PO BID 06/19/13 [History Confirmed 08/21/18] Levothyroxine [Synthroid] 50 mcg PO DAILY 06/19/13 [History Confirmed 08/21/18] Omeprazole [Prilosec] 20 mg PO BID 06/19/13 [History Confirmed 08/21/18] Biotin 10 mg PO DAILY 12/22/13 [History Confirmed 08/21/18] Calcium Citrate/Vitamin D3 [Calcium Citrate-Vit D3 Tablet] 2 ea PO BID 06/23/17 [History Confirmed 08/21/18] Cyanocobalamin (Vitamin B-12) [Vitamin B-12] 500 mcg PO DAILY 06/23/17 [History Confirmed 08/21/18] Magnesium 500 mg PO DAILY 06/23/17 [History Confirmed 08/21/18] Pnv No.95/Ferrous Fum/Folic AC [ Formula Tablet] 1 ea PO DAILY 06/23/17 [History Confirmed 08/21/18] Tizanidine HCl [Zanaflex] 4 mg PO BID 06/23/17 [History Confirmed 08/21/18] hydrOXYzine pamoate capsule [Vistaril pamoate capsule] 25 mg PO TID PRN PRN 06/23/17 [History Confirmed 08/21/18] Acetaminophen [Tylenol] 1,000 mg PO Q8H PRN PRN tab 07/01/17 [Rx Confirmed 08/21/18] Docusate Sodium [Colace] 100 mg PO BID #30 cap 07/01/17 [Rx Confirmed 08/21/18] zonisamide 100 mg capsule 400 mg PO DAILY cap 05/08/18 [History Confirmed 08/21/18] metronidazole 500 mg tablet 500 mg PO TID #42 tab 06/27/18 [Rx Confirmed 08/21/18] doxycycline monohydrate 100 mg capsule 100 mg PO BID #20 cap 08/18/18 [Rx Confirmed 08/18/18] [facility] Medical History Hx of hysterectomy (Acute) Hemorrhoids (Acute) Acid reflux (Acute) Anxiety (Acute) Arthritis (Acute) Thyroid disorder (Acute) Surgical History Hx of gastric bypass (Acute) Hx of cholecystectomy (Acute) History of carpal tunnel surgery of left wrist (Acute) I AND D right buttock abscess (Acute) Family History Mother Diabetes Cancer Hypertension Heart disease Father Heart disease Hypertension Brother Hypertension Asthma Social History Smoking Status: Never smoker second hand exposure: No alcohol intake: never substance use type: does not use caffeine: Yes what type of physical activity do you participate in: walking seatbelt use: always HPI HPI HPI: TASHA BEAL, is a 42 F who presents to the office today for follow-up of right buttock abscess. Patient has been on doxycycline for a couple weeks. She is still having some yellow/light green drainage when changing her iodoform packing which she is doing twice daily. She is also irrigating with saline prior to packing. Exam Const General: cooperative, comfortable, no acute distress Skin Other: Right buttock abscess, has improved a little bit as far as depth is about 2 cm from the 3 cm however she is still having light greenish drainage after being on a couple weeks of antibiotics, the more superficial wound is healing well however we do need this to stay open in order for it to heal from the inside out. Assessment AND Plan Problems 1. 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 She did undergo an I AND D in the office and has been on multiple weeks of antibiotics with not much improvement. Discussed patient to go to the best to undergo an I AND D of the right buttock abscess in the OR with MAC, for better visualization at the base to see if there is an area that keeps causing this recurrent infection to continue. Discussed risks including but not limited to bleeding, infection, and anesthesia. Discussed patient that she would still be doing some packing after the procedure. It was agreeable with plan had no further questions at this time. Florence Mario M.D. Pager: [phone] [facility] [address] [place] [address], [facility], [address] [place] [address] Office: [phone] Plan Detail Follow Up will schedule I AND D in OR Coding Level of Care Code Off vis,est,level 3 Diagnoses Abscess of buttock, right L02.31 08/25/18 1422 <Electronically signed by Florence Mario MD> Date Florence Greene Signature: Date (if applicable) CC: SCREENING MAMM (CAD), Observed: 08/25/2018 Status: F Source: [place] 12:35 PM [facility] REPOSITORY [facility] Services [address] [place] [address] SCREENING MAMM (CAD), BILAT MR#: [id number] Acct: [id number] Name: TASHA TORO Rep #: [id number] : 1975 F 42 From: Trent Gresham MD PCP: Ronnell Moreno MD Status: REG CLI Study: SCREENING MAMM (CAD), BILAT Date of Exam: 08/25/18 Exam# [id number] Ordering Dr: Luis Alberto Platt MD MAMMOGRAPHY - BILATERAL SCREENING REASON FOR EXAM: Female, 42 years old. Routine annual screening examination. PERTINENT HISTORY: Non-contributory. TECHNIQUE: Digital bilateral breast paul (3D mammographic acquisition) in the CC and MLO projections. 2-D mediolateral oblique (MLO) and craniocaudad (CC) views of both breasts were obtained. CAD: Full Field Digital Mammography with Computer Added Detection was performed. COMPARISON: Comparison is made with prior study dated May 27, 2017. FINDINGS: Breast Composition: There are scattered areas of fibroglandular density. There are no dominant masses or suspicious calcifications. No other significant abnormalities are identified. There has been no significant change since the prior study. BI/SCREENING MAMM (CAD), BILAT IMPRESSION: Stable bilateral screening mammogram. Yearly follow-up mammogram recommended. (A) ASSESSMENT CATEGORY: BIRADS Category 1: Negative. A letter regarding these results will be sent to the patient by the facility within 30 days. Approximately 10% of breast cancers are not detected by mammography. A normal mammogram should not delay biopsy of a clinically suspicious abnormality. [id number] Electronically Signed: Trent Gresham MD at 14:44 EST Tel [phone], Service support , CC: Luis Alberto Platt MD; Ronnell Moreno MD Chair Upholsterer: Signed PTH, INTACT Collected: 08/24/2018 Status: F Source: [place] 12:36 PM [facility] REPOSITORY TYPE CODE TESTS RESULT OUT OF REFERENCE UNITS RANGE LAB PTH 15-65 pg/mL PTH, Intact 46 Performed By: #### PTHI, B12 #### [facility] [address] [place] [id number] VITAMIN B12 Collected: 08/24/2018 Status: F Source: [place] 12:36 PM [facility] REPOSITORY TYPE CODE TESTS RESULT OUT OF REFERENCE UNITS RANGE LAB B12 232-1245 pg/mL Vitamin B12 529 Performed By: #### PTHI, B12 #### [facility] [address] [place] [id number] FOLATE, SERUM Collected: 08/24/2018 Status: F Source: [place] 12:36 PM [facility] REPOSITORY TYPE CODE TESTS RESULT OUT OF REFERENCE UNITS RANGE LAB SERFOL >4.7 ng/mL Folate, >20.0 Serum Result Comment: A result of > 20 ng/mL is not necessarily indicative of a pathologic or treatable condition: it reflects a limitation of the test methodology. Assay reference range: 4.8 to 24.2 ng/mL. Suitable for detection of folate deficiency. Reference: Folate III (Folate III) [package insert V 1.0 Niuean]. [facility], [place], [place]: July 2015. Performed By: #### SERFOL #### [facility] [address] [place], [place] [address] Observed: 08/11/2018 Status: F Source: [place] CULTURE, WOUND 2:00 PM [facility] REPOSITORY Gram Stain Gram Stain 2+ White Blood Cells 2+ Red Blood Cells Very Rare Gram positive cocci Wound Culture ORGANISM 1: Staphylococcus aureus Amount Growth Rare Staphylococcus aureus: REACTION Benzylpenicillin NF <=0.03 R Cefoxitin *NF - Clindamycin $$ <=0.25 R Inducable Clindamycin Resistan + Erythromycin $ >=8 R Gentamicin $ <=0.5 S Levofloxacin $ <=0.12 S Linezolid $$$$ 1 S Moxifloxicin *NF <=0.25 S Oxacillin NF <=0.25 S Tigecycline $$$$ <=0.12 S Rifampin $$ <=0.5 S Tetracycline NF >=16 R Trimethoprim/Sulfametho $ <=10 S Vancomycin $ <=0.5 S (NF) indicates non-formulary drug at [facility]. Approval by Infectious Disease Specialist required before non-formulary drugs may be ordered and/or dispensed. * CLSI guidelines does not recommend testing of cephalosporins. This interpretation is deduced from Beta-lactam/penicillin results. Performed By: #### [id number] #### [facility] [address] [place], [place], [id number] SURGERY VISIT REPORT Observed: 07/27/2018 Status: F Source: [place] 3:04 PM [facility] REPOSITORY [facility] [address] [place] [address] OFFICE VISIT Date of Service: 07/27/18 MR#: [id number] Acct: [id number] Name: TASHA DE Rep #: [id number] : 1975 Provider: Florence Mario MD Age/Sex: 42/F Location: [facility] Status: Signed Intake Intake Visit Reasons: I AND D Buttock Abscess Chief Complaint: I AND D buttock abscess Farm Reporter Required: No Is patient in pain?: No Allergies Penicillins [PCN] Allergy (Verified 07/27/18 14:26) Rash silicone [Silicone] Allergy (Verified 07/27/18 14:26) Rash doxycycline Adverse Reaction (Verified 07/27/18 14:26) Other hydrochlorothiazide Adverse Reaction (Verified 07/27/18 14:26) Other topiramate [From Topamax] Adverse Reaction (Verified 07/27/18 14:26) Chest tightness Medications Duloxetine Hcl [Cymbalta] 60 mg PO BID 06/19/13 [History Confirmed 07/27/18] Ergocalciferol [Vitamin D] 50,000 unit PO Q7D 06/19/13 [History Confirmed 07/27/18] Iron 325 mg PO BID 06/19/13 [History Confirmed 07/27/18] Levothyroxine [Synthroid] 50 mcg PO DAILY 06/19/13 [History Confirmed 07/27/18] Omeprazole [Prilosec] 20 mg PO BID 06/19/13 [History Confirmed 07/27/18] Biotin 10 mg PO DAILY 12/22/13 [History Confirmed 07/27/18] Calcium Citrate/Vitamin D3 [Calcium Citrate-Vit D3 Tablet] 2 ea PO BID 06/23/17 [History Confirmed 07/27/18] Cyanocobalamin (Vitamin B-12) [Vitamin B-12] 500 mcg PO DAILY 06/23/17 [History Confirmed 07/27/18] Magnesium 500 mg PO DAILY 06/23/17 [History Confirmed 07/27/18] Pnv95/Ferrous Fumarate/FA [ Formula Tablet] 1 ea PO DAILY 06/23/17 [History Confirmed 07/27/18] Tizanidine HCl [Zanaflex] 4 mg PO BID 06/23/17 [History Confirmed 07/27/18] hydrOXYzine pamoate capsule [Vistaril pamoate capsule] 25 mg PO TID PRN PRN 06/23/17 [History Confirmed 07/27/18] Acetaminophen [Tylenol] 1,000 mg PO Q8H PRN PRN tab 07/01/17 [Rx Confirmed 07/27/18] Docusate Sodium [Colace] 100 mg PO BID #30 cap 07/01/17 [Rx Confirmed 07/27/18] zonisamide 100 mg capsule 400 mg PO DAILY cap 05/08/18 [History Confirmed 07/27/18] metronidazole 500 mg tablet 500 mg PO TID #42 tab 06/27/18 [Rx Confirmed 07/27/18] Subjective Details: Patient presents status post I AND D of right buttock abscess. Patient states her 's been packing this twice a day with iodoform. She states there is still some greenish drainage on dressing when removed. Her cultures showed numerous staph epidermidis and question whether it could be skin contamination. She has not been on any additional antibiotics and she finished her last dose of doxycycline and Flagyl just after the I AND D. Patient denies any pain at the site. Objective Details: Right buttock inferior: Wound opening with no erythema, nontender, dressing did have a little bit of greenish drainage once it was removed. This area was recultured in office to see if the previous culture was in fact contamination or not Assessment AND Plan Problems 1. Abscess of buttock, right L02.31 Plan Status post I AND D. Continue packing with iodoform twice daily. Will await the new wound culture to see if she would benefit from any antibiotics. Currently is nontender with only minimal drainage on the dressing. Follow-up in 1-2 weeks due to the holiday. Florence Mario M.D. Pager: [phone] [facility] [address] [place] [address], [address] [place] [address] Office: [phone] Orders Orders: Plan Detail Follow Up 1-2 weeks Coding Level of Care Code Global Post Op Diagnoses Abscess of buttock, right L02.31 07/27/18 1504 <Electronically signed by Florence Mario MD> Date Florence Mario MD Cosigner Signature: Date (if applicable) CC: Observed: 07/27/2018 Status: F Source: [place] CULTURE, DEEP WOUND 2:30 PM [facility] REPOS[facility]ORY Gram Stain Gram Stain 4+ Red Blood Cells No organisms seen No White Blood Cells Wound Culture ORGANISM 1: Staphylococcus aureus Amount Growth 2+ Staphylococcus aureus: REACTION Benzylpenicillin NF >=0.5 R Cefoxitin *NF - Clindamycin $$ <=0.25 S Inducable Clindamycin Resistan - Erythromycin $ <=0.25 S Gentamicin $ <=0.5 S Levofloxacin $ <=0.12 S Linezolid $$$$ 2 S Moxifloxicin *NF <=0.25 S Oxacillin NF <=0.25 S Tigecycline $$$$ <=0.12 S Rifampin $$ <=0.5 S Tetracycline NF <=1 S Trimethoprim/Sulfametho $ <=10 S Vancomycin $ 1 S (NF) indicates non-formulary drug at [facility]. Approval by Infectious Disease Specialist required before non-formulary drugs may be ordered and/or dispensed. * CLSI guidelines does not recommend testing of cephalosporins. This interpretation is deduced from Beta-lactam/penicillin results. Cult, Anaerobic No anaerobic bacteria isolated. Performed By: #### [id number] #### [facility] [address]. [place], [place], [address] SURGERY VISIT REPORT Observed: 07/21/2018 Status: F Source: [place] 11:39 AM [facility] REPOSITORY [facility] [address] [place] [address] OFFICE VISIT Date of Service: 07/20/18 MR#: [id number] Acct: [id number] Name: TASHA DE Rep #: [id number] : 1975 Provider: Florence Mario MD Age/Sex: 42/F Location: [facility] Status: Signed Intake Intake Visit Reasons: I AND D Buttock Abscess Chief Complaint: I AND D buttock abscess Farm Reporter Required: No Is patient in pain?: Yes Allergies Penicillins [PCN] Allergy (Verified 07/20/18 09:16) Rash silicone [Silicone] Allergy (Verified 07/20/18 09:16) Rash doxycycline Adverse Reaction (Verified 07/20/18 09:16) Other hydrochlorothiazide Adverse Reaction (Verified 07/20/18 09:16) Other topiramate [From Topamax] Adverse Reaction (Verified 07/20/18 09:16) Chest tightness Medications Duloxetine Hcl [Cymbalta] 60 mg PO BID 06/19/13 [History Confirmed 07/18/18] Ergocalciferol [Vitamin D] 50,000 unit PO Q7D 06/19/13 [History Confirmed 07/18/18] Iron 325 mg PO BID 06/19/13 [History Confirmed 07/18/18] Levothyroxine [Synthroid] 50 mcg PO DAILY 06/19/13 [History Confirmed 07/18/18] Omeprazole [Prilosec] 20 mg PO BID 06/19/13 [History Confirmed 07/18/18] Biotin 10 mg PO DAILY 12/22/13 [History Confirmed 07/18/18] Calcium Citrate/Vitamin D3 [Calcium Citrate-Vit D3 Tablet] 2 ea PO BID 06/23/17 [History Confirmed 07/18/18] Cyanocobalamin (Vitamin B-12) [Vitamin B-12] 500 mcg PO DAILY 06/23/17 [History Confirmed 07/18/18] Magnesium 500 mg PO DAILY 06/23/17 [History Confirmed 07/18/18] Pnv95/Ferrous Fumarate/FA [ Formula Tablet] 1 ea PO DAILY 06/23/17 [History Confirmed 07/18/18] Tizanidine HCl [Zanaflex] 4 mg PO BID 06/23/17 [History Confirmed 07/18/18] hydrOXYzine pamoate capsule [Vistaril pamoate capsule] 25 mg PO TID PRN PRN 06/23/17 [History Confirmed 07/18/18] Acetaminophen [Tylenol] 1,000 mg PO Q8H PRN PRN tab 07/01/17 [Rx Confirmed 07/18/18] Docusate Sodium [Colace] 100 mg PO BID #30 cap 07/01/17 [Rx Confirmed 07/18/18] zonisamide 100 mg capsule 400 mg PO DAILY cap 05/08/18 [History Confirmed 07/18/18] metronidazole 500 mg tablet 500 mg PO TID #42 tab 06/27/18 [Rx Confirmed 07/18/18] Is last menstrual period known: No Post menopausal: Yes Patient : No PFSH Medical History Hx of hysterectomy (Acute) Hemorrhoids (Acute) Acid reflux (Acute) Anxiety (Acute) Arthritis (Acute) Thyroid disorder (Acute) Surgical History Hx of gastric bypass (Acute) Hx of cholecystectomy (Acute) History of carpal tunnel surgery of left wrist (Acute) Family History Mother Diabetes Cancer Hypertension Heart disease Father Heart disease Hypertension Brother Hypertension Asthma Social History Smoking Status: Never smoker second hand exposure: No alcohol intake: never substance use type: does not use caffeine: Yes what type of physical activity do you participate in: walking seatbelt use: always HPI HPI HPI: TASHA DE, is a 42 F who presents to the office today for I AND D of right buttock abscess due to recurrent abscess after 3 weeks of antibiotics. Exam Const General: cooperative, comfortable, no acute distress Skin Other: Right inferior buttock wound appears to be almost closed again Office Procedures Incision and Drainage Procedure performed by: violet Informed consent given: Yes Consent signed: Yes Time out checklist: patient, procedure, site marked/identified, positioning of patient, supplies available, allergies confirmed, team agrees on procedure Time out staff in room: Yes Time out verified: Yes Time out date: 07/20/18 Location: [facility] office Anesthesia: local Incision with: #11 blade Drainage quality: minimal-none Probed cavity: Yes Culture taken: Yes Lesion: drainage (minimal on dressing) Lesion size (cm): 2 (opening now 7mm x7mm [place], 2 cm depth about 1 cm in width) Cavity management: irrigated, packing Dressing: other (1/4 iodoform) Patient tolerated procedure: well Complications: No Procedure Time Out Time Out Informed consent given: Yes Consent signed: Yes Time out checklist: patient, procedure, site marked/identified, positioning of patient, supplies available, allergies confirmed, team agrees on procedure Time out staff in room: Yes Time out verified: Yes Time out date: 07/20/18 Time out time: 09:20 Assessment AND Plan Problems 1. Abscess of buttock, right L02.31 Plan Patient tolerated I AND D well. Plan to continue packing so this can allow to heal from the inside out as it seems that it was just closing over the skin however never truly healing even with the antibiotics. We will continue packing twice daily patient is agreeable with plan follow-up in 1 week. Cultures were obtained will await for sensitivities prior to giving any additional antibiotics. Florence Mario M.D. Pager: [phone] [facility] [address] [place] [address], [facility], [address] [place] [address] Office: [phone] Orders Orders: Plan Detail Follow Up 1 Week Coding Level of Care Code Attention [employer] Diagnoses Abscess of buttock, right L02.31 Comment [id number] was performed on 07/20/18 07/21/18 1139 <Electronically signed by Florence Mario MD> Date Florence Mario MD Cosigner Signature: Date (if applicable) CC: Ronnell Moreno MD Observed: 07/20/2018 Status: F Source: [place] CULTURE, DEEP WOUND 11:43 AM [facility] RE[facility] Gram Stain Gram Stain 1+ Red Blood Cells No White Blood Cells No organisms seen Wound Culture Clinical correlation necessary, Possible skin contamination. ORGANISM 1: Staphylococcus epidermidis Amount Growth Rare Staphylococcus epidermidis: REACTION Benzylpenicillin NF >=0.5 R Cefoxitin *NF + Clindamycin $$ <=0.25 R Inducable Clindamycin Resistan + Erythromycin $ >=8 R Gentamicin $ 8 I Levofloxacin $ 4 I Linezolid $$$$ 1 S Oxacillin NF >=4 R Tigecycline $$$$ 0.5 S Rifampin $$ <=0.5 S Tetracycline NF >=16 R Vancomycin $ 2 S (NF) indicates non-formulary drug at [facility]. Approval by Infectious Disease Specialist required before non-formulary drugs may be ordered and/or dispensed. * CLSI guidelines does not recommend testing of cephalosporins. This interpretation is deduced from Beta-lactam/penicillin results. Cult, Anaerobic No anaerobic bacteria isolated. Performed By: #### M100.1500 #### [facility] [address] [place] [address]. [place], [address] SURGERY VISIT REPORT Observed: 07/19/2018 Status: F Source: [place] 2:31 PM [facility] RE[facility] [address] [place], [place] [id number] OFFICE VISIT Date of Service: 07/18/18 MR#: [id number] Acct: [id number] Name: TASHA DE Rep #: [id number] : 1975 Provider: Florence Mario MD Age/Sex: 42/F Location: [facility] Status: Signed Intake Intake Visit Reasons: recheck buttock abscess Farm Reporter Required: No Is patient in pain?: No Allergies Penicillins [PCN] Allergy (Verified 07/18/18 10:27) Rash silicone [Silicone] Allergy (Verified 07/18/18 10:27) Rash doxycycline Adverse Reaction (Verified 07/18/18 10:27) Other hydrochlorothiazide Adverse Reaction (Verified 07/18/18 10:27) Other topiramate [From Topamax] Adverse Reaction (Verified 07/18/18 10:27) Chest tightness Medications Duloxetine Hcl [Cymbalta] 60 mg PO BID 06/19/13 [History Confirmed 07/18/18] Ergocalciferol [Vitamin D] 50,000 unit PO Q7D 06/19/13 [History Confirmed 07/18/18] Iron 325 mg PO BID 06/19/13 [History Confirmed 07/18/18] Levothyroxine [Synthroid] 50 mcg PO DAILY 06/19/13 [History Confirmed 07/18/18] Omeprazole [Prilosec] 20 mg PO BID 06/19/13 [History Confirmed 07/18/18] Biotin 10 mg PO DAILY 12/22/13 [History Confirmed 07/18/18] Calcium Citrate/Vitamin D3 [Calcium Citrate-Vit D3 Tablet] 2 ea PO BID 06/23/17 [History Confirmed 07/18/18] Cyanocobalamin (Vitamin B-12) [Vitamin B-12] 500 mcg PO DAILY 06/23/17 [History Confirmed 07/18/18] Magnesium 500 mg PO DAILY 06/23/17 [History Confirmed 07/18/18] Pnv95/Ferrous Fumarate/FA [ Formula Tablet] 1 ea PO DAILY 06/23/17 [History Confirmed 07/18/18] Tizanidine HCl [Zanaflex] 4 mg PO BID 06/23/17 [History Confirmed 07/18/18] hydrOXYzine pamoate capsule [Vistaril pamoate capsule] 25 mg PO TID PRN PRN 06/23/17 [History Confirmed 07/18/18] Acetaminophen [Tylenol] 1,000 mg PO Q8H PRN PRN tab 07/01/17 [Rx Confirmed 07/18/18] Docusate Sodium [Colace] 100 mg PO BID #30 cap 07/01/17 [Rx Confirmed 07/18/18] zonisamide 100 mg capsule 400 mg PO DAILY cap 05/08/18 [History Confirmed 07/18/18] metronidazole 500 mg tablet 500 mg PO TID #42 tab 06/27/18 [Rx Confirmed 07/18/18] Subjective Details: Patient presents for follow-up of right buttock abscess. Patient has been on antibiotics for about 3 weeks and at previous appointment he had been completely closed on 07/02/18. Patient has continued sitz bath's but states that last night it did open up again. She still has a couple days of antibiotics left. Denies any pain at the site Objective Details: Right buttock abscess: About a 3 mm open wound that is about 2 cm deep. Only serosanguineous drainage on the Band-Aid., Not Assessment AND Plan Problems 1. Abscess of buttock, right L02.31 Plan Discussed with patient that antibiotics are not obviously working. Recommend an I AND D of the area which will involve making the wound larger to allow for packing to hopefully allow this to heal on its own. Patient was agreeable plan. She will make appointment later this week for I AND D in the office. Florence Mario M.D. Pager: [phone] [facility] [address] [place] [address], [facility], [address] [place] [address] Office: [phone] Plan Detail Follow Up For I AND D and excision of wound Coding Level of Care Code Off vis,est,level 3 Diagnoses Abscess of buttock, right L02.31 07/19/18 1431 <Electronically signed by Florence Mario MD> Date Florence Mario MD Cosigner Signature: Date (if applicable) CC: Ronnell Moreno MD SURGERY VISIT REPORT Observed: 07/11/2018 Status: F Source: [place] 1:40 PM [facility] RE[facility] [address] [place] [address] OFFICE VISIT Date of Service: 07/10/18 MR#: [id number] Acct: [id number] Name: TASHA DE Rep #: [id number] : 1975 Provider: Florence Mario MD Age/Sex: 42/F Location: [facility] Status: Signed Intake Intake Visit Reasons: recheck buttock abscess Chief Complaint: recheck abscess Farm Reporter Required: No Is patient in pain?: No Allergies Penicillins [PCN] Allergy (Verified 07/10/18 12:52) Rash silicone [Silicone] Allergy (Verified 07/10/18 12:52) Rash doxycycline Adverse Reaction (Verified 07/10/18 12:52) Other hydrochlorothiazide Adverse Reaction (Verified 07/10/18 12:52) Other topiramate [From Topamax] Adverse Reaction (Verified 07/10/18 12:52) Chest tightness Medications Duloxetine Hcl [Cymbalta] 60 mg PO BID 06/19/13 [History Confirmed 07/10/18] Ergocalciferol [Vitamin D] 50,000 unit PO Q7D 06/19/13 [History Confirmed 07/10/18] Iron 325 mg PO BID 06/19/13 [History Confirmed 07/10/18] Levothyroxine [Synthroid] 50 mcg PO DAILY 06/19/13 [History Confirmed 07/10/18] Omeprazole [Prilosec] 20 mg PO BID 06/19/13 [History Confirmed 07/10/18] Biotin 10 mg PO DAILY 12/22/13 [History Confirmed 07/10/18] Calcium Citrate/Vitamin D3 [Calcium Citrate-Vit D3 Tablet] 2 ea PO BID 06/23/17 [History Confirmed 07/10/18] Cyanocobalamin (Vitamin B-12) [Vitamin B-12] 500 mcg PO DAILY 06/23/17 [History Confirmed 07/10/18] Magnesium 500 mg PO DAILY 06/23/17 [History Confirmed 07/10/18] Pnv95/Ferrous Fumarate/FA [ Formula Tablet] 1 ea PO DAILY 06/23/17 [History Confirmed 07/10/18] Tizanidine HCl [Zanaflex] 4 mg PO BID 06/23/17 [History Confirmed 07/10/18] hydrOXYzine pamoate capsule [Vistaril pamoate capsule] 25 mg PO TID PRN PRN 06/23/17 [History Confirmed 07/10/18] Acetaminophen [Tylenol] 1,000 mg PO Q8H PRN PRN tab 07/01/17 [Rx Confirmed 07/10/18] Docusate Sodium [Colace] 100 mg PO BID #30 cap 07/01/17 [Rx Confirmed 07/10/18] levofloxacin 500 mg tablet 500 mg PO DAILY #5 tab 05/08/18 [Rx Confirmed 07/10/18] zonisamide 100 mg capsule 400 mg PO DAILY cap 05/08/18 [History Confirmed 07/10/18] doxycycline hyclate 100 mg capsule 100 mg PO BID #20 cap NS 06/05/18 [Rx Confirmed 07/10/18] metronidazole 500 mg tablet 500 mg PO TID #30 tab 06/06/18 [Rx Confirmed 07/10/18] doxycycline hyclate 100 mg capsule 100 mg PO BID #6 cap 06/19/18 [Rx Confirmed 07/10/18] metronidazole 500 mg tablet 500 mg PO TID #9 tab 06/19/18 [Rx Confirmed 07/10/18] doxycycline hyclate 100 mg capsule 100 mg PO BID #28 cap 06/27/18 [Rx Confirmed 07/10/18] metronidazole 500 mg tablet 500 mg PO TID #42 tab 06/27/18 [Rx Confirmed 07/10/18] doxycycline hyclate 100 mg tablet 100 mg PO BID #20 tab 07/10/18 [Rx Confirmed 07/10/18] metronidazole 500 mg tablet 500 mg PO TID #30 tab 07/10/18 [Rx Confirmed 07/10/18] Subjective Details: Patient presents due to her right buttock abscess. She has almost completed her 14 days of doxycycline and Flagyl. She states that the wound stopped draining on the and it appeared to be closed on 02 July. Patient denies any pain at the site. Objective Details: Right inferior buttock, wound appeared to be completely closed, nontender, no evidence of erythema Assessment AND Plan Problems 1. Abscess of buttock, right L02.31 Plan Discussed with patient that would plan to do another 10 days of both antibiotics as she was tolerating them well and this has been a recurrent issue that has come back after stopping the antibiotics in the past or only having them on for a few days beyond when it is closed. Patient was agreeable plan. Follow-up in 7-10 days. Florence Mario M.D. Pager: [phone] [facility] [address] [place] [address], [address] [place] [address] Office: [phone] Medications New: Plan Detail Follow Up 7-10 days Coding Level of Care Code Off vis,est,level 3 Diagnoses Abscess of buttock, right L02.31 07/11/18 1340 <Electronically signed by Florence Mario MD> Date Florence Mario MD Cosigner Signature: Date (if applicable) CC: FLUOROSCOPY IN OR/PAIN Observed: 06/29/2018 Status: F Source: [facility] MGT 6:40 AM COUNTS INCLUDE 234 BEDS AT THE [facility] FLUOROSCOPY IN OR/PAIN MGT Ordering Physician: Mao Hickman MD 06/29/2018 8:35 AM [facility] FLUOROSCOPY IN PAIN MANAGEMENT Clinical Statement: Tendinitis FINDINGS: Report is being generated documenting utilization of 14.4 seconds of fluoroscopic time by Dr. Hickman. Two spot films are obtained. ] IMPRESSION: Documentation of fluoroscopy utilized by Dr. Hickman. Please refer to his notes for details ---- Electronic Signature on File ---- Signed By: Luis Alberto Cuevas MD [email or web address] Dictated: 06/29/2018 8:50 AM Signed: 06/29/2018 8:51 AM Reported By: LUIS ALBERTO CUEVAS M.D. Signed By: LUIS ALBERTO CUEVAS M.D. SURGERY VISIT REPORT Observed: 06/28/2018 Status: F Source: [place] 12:46 PM [facility] RE[facility] [address] [place] [address] [address] [place] [address] OFFICE VISIT Date of Service: 06/27/18 MR#: [id number] Acct: [id number] Name: TASHA DE Rep #: [id number] : 1975 Provider: Florence Mario MD Age/Sex: 42/F Location: [facility] Status: Signed Intake Intake Visit Reasons: recheck buttock abscess Chief Complaint: recheck abscess Farm Reporter Required: No Is patient in pain?: No Allergies Penicillins [PCN] Allergy (Verified 06/27/18 08:39) Rash silicone [Silicone] Allergy (Verified 06/27/18 08:39) Rash doxycycline Adverse Reaction (Verified 06/27/18 08:39) Other hydrochlorothiazide Adverse Reaction (Verified 06/27/18 08:39) Other topiramate [From Topamax] Adverse Reaction (Verified 06/27/18 08:39) Chest tightness Medications Duloxetine Hcl [Cymbalta] 60 mg PO BID 06/19/13 [History Confirmed 06/27/18] Ergocalciferol [Vitamin D] 50,000 unit PO Q7D 06/19/13 [History Confirmed 06/27/18] Iron 325 mg PO BID 06/19/13 [History Confirmed 06/27/18] Levothyroxine [Synthroid] 50 mcg PO DAILY 06/19/13 [History Confirmed 06/27/18] Omeprazole [Prilosec] 20 mg PO BID 06/19/13 [History Confirmed 06/27/18] Biotin 10 mg PO DAILY 12/22/13 [History Confirmed 06/27/18] Calcium Citrate/Vitamin D3 [Calcium Citrate-Vit D3 Tablet] 2 ea PO BID 06/23/17 [History Confirmed 06/27/18] Cyanocobalamin (Vitamin B-12) [Vitamin B-12] 500 mcg PO DAILY 06/23/17 [History Confirmed 06/27/18] Magnesium 500 mg PO DAILY 06/23/17 [History Confirmed 06/27/18] Pnv95/Ferrous Fumarate/FA [ Formula Tablet] 1 ea PO DAILY 06/23/17 [History Confirmed 06/27/18] Tizanidine HCl [Zanaflex] 4 mg PO BID 06/23/17 [History Confirmed 06/27/18] hydrOXYzine pamoate capsule [Vistaril pamoate capsule] 25 mg PO TID PRN PRN 06/23/17 [History Confirmed 06/27/18] Acetaminophen [Tylenol] 1,000 mg PO Q8H PRN PRN tab 07/01/17 [Rx Confirmed 06/27/18] Docusate Sodium [Colace] 100 mg PO BID #30 cap 07/01/17 [Rx Confirmed 06/27/18] levofloxacin 500 mg tablet 500 mg PO DAILY #5 tab 05/08/18 [Rx Confirmed 06/27/18] zonisamide 100 mg capsule 400 mg PO DAILY cap 05/08/18 [History Confirmed 06/27/18] doxycycline hyclate 100 mg capsule 100 mg PO BID #20 cap NS 06/05/18 [Rx Confirmed 06/27/18] metronidazole 500 mg tablet 500 mg PO TID #30 tab 06/06/18 [Rx Confirmed 06/27/18] doxycycline hyclate 100 mg capsule 100 mg PO BID #6 cap 06/19/18 [Rx Confirmed 06/27/18] metronidazole 500 mg tablet 500 mg PO TID #9 tab 06/19/18 [Rx Confirmed 06/27/18] doxycycline hyclate 100 mg capsule 100 mg PO BID #28 cap 06/27/18 [Rx Confirmed 06/27/18] metronidazole 500 mg tablet 500 mg PO TID #42 tab 06/27/18 [Rx Confirmed 06/27/18] PFSH Medical History Hx of hysterectomy (Acute) Hemorrhoids (Acute) Acid reflux (Acute) Anxiety (Acute) Arthritis (Acute) Thyroid disorder (Acute) Surgical History Hx of gastric bypass (Acute) Hx of cholecystectomy (Acute) History of carpal tunnel surgery of left wrist (Acute) Family History Mother Diabetes Cancer Hypertension Heart disease Father Heart disease Hypertension Brother Hypertension Asthma Social History Smoking Status: Never smoker second hand exposure: No alcohol intake: never substance use type: does not use caffeine: Yes what type of physical activity do you participate in: walking seatbelt use: always HPI HPI HPI: TASHA DE, is a 42 F who presents to the office today for evaluation of recurrent right buttocks abscess. Patient was previously on antibiotics doxy cycling and Flagyl and at the last appointment appeared to be closed. Patient states that 2 days ago was a little itchy at that area and yesterday did open a little bit as she had a little amount of blood as drainage. Patient denies any pain at the site. Exam Const General: cooperative, comfortable, no acute distress Skin Other: Right inferior buttocks wound/abscess. The wound opening is only about 2 mm in size the only drainage is looks to be mostly serosanguineous and only a little amount. No erythema or tenderness palpation Assessment AND Plan Problems 1. Abscess of buttock, right L02.31 Plan Plan to give patient another 2 weeks of the previous antibiotics as the whole is too small to culture well without mostly culture in the skin. Patient is agreeable with plan. Follow-up before the 2 weeks completion of antibiotics. Florence Mario M.D. Pager: [phone] [facility] [address] [place] [address], [facility], [address] [place] [id number] Office: [phone] Medications New: Plan Detail Follow Up 1-2 weeks Coding Level of Care Code Off vis,est,level 3 Diagnoses Abscess of buttock, right L02.31 06/28/18 1246 <Electronically signed by Florence Mario MD> Date Florence Mario MD Cosigner Signature: Date (if applicable) CC: Ronnell Moreno MD FLUOROSCOPY IN OR/PAIN Observed: 06/22/2018 Status: F Source: [employer] MGT 6:42 AM COUNTS INCLUDE 234 BEDS AT THE [facility] FLUOROSCOPY IN OR/PAIN MGT Ordering Physician: Mao Hickman MD 06/22/2018 8:00 AM FLUOROSCOPY IN OR/PAIN MANAGEMENT Clinical Statement: Lumbar sympathetic block Comparison: None FINDINGS: Fluoroscopy was provided to Dr. Hickman who performed the procedure. Two fluoroscopic spot views demonstrate a needle directed to the left of the lumbar spine at the L2 level. Contrast was injected. 8.6 seconds of fluoroscopic time was utilized during the procedure. IMPRESSION: Report generated to document fluoroscopic time utilized in pain management. ---- Electronic Signature on File ---- Signed By: Bear Lamar MD [email or web address] Dictated: 06/22/2018 8:13 AM Signed: 06/22/2018 8:14 AM Reported By: BEAR LAMAR M.D. Signed By: BEAR LAMAR M.D. SURGERY VISIT REPORT Observed: 06/19/2018 Status: F Source: [place] 9:19 AM [facility] [address] [place] [address] [address] [place] [address] OFFICE VISIT Date of Service: 06/19/18 MR#: [id number] Acct: [id number] Name: JIMTASHA L Rep #: [id number] : 1975 Provider: Florence Mario MD Age/Sex: 42/F Location: [facility] Status: Signed Intake Intake Visit Reasons: 10 day F/U Meds Abscess R Buttock Farm Reporter Required: No Is patient in pain?: No Allergies Penicillins [PCN] Allergy (Verified 06/19/18 09:10) Rash silicone [Silicone] Allergy (Verified 06/19/18 09:10) Rash doxycycline Adverse Reaction (Verified 06/19/18 09:10) Other hydrochlorothiazide Adverse Reaction (Verified 06/19/18 09:10) Other topiramate [From [employer]] Adverse Reaction (Verified 06/19/18 09:10) Chest tightness Medications Duloxetine Hcl [Cymbalta] 60 mg PO BID 06/19/13 [History Confirmed 06/19/18] Ergocalciferol [Vitamin D] 50,000 unit PO Q7D 06/19/13 [History Confirmed 06/19/18] Iron 325 mg PO BID 06/19/13 [History Confirmed 06/19/18] Levothyroxine [Synthroid] 50 mcg PO DAILY 06/19/13 [History Confirmed 06/19/18] Omeprazole [Prilosec] 20 mg PO BID 06/19/13 [History Confirmed 06/19/18] Biotin 10 mg PO DAILY 12/22/13 [History Confirmed 06/19/18] Calcium Citrate/Vitamin D3 [Calcium Citrate-Vit D3 Tablet] 2 ea PO BID 06/23/17 [History Confirmed 06/19/18] Cyanocobalamin (Vitamin B-12) [Vitamin B-12] 500 mcg PO DAILY 06/23/17 [History Confirmed 06/19/18] Magnesium 500 mg PO DAILY 06/23/17 [History Confirmed 06/19/18] Pnv95/Ferrous Fumarate/FA [ Formula Tablet] 1 ea PO DAILY 06/23/17 [History Confirmed 06/19/18] Tizanidine HCl [Zanaflex] 4 mg PO BID 06/23/17 [History Confirmed 06/19/18] hydrOXYzine pamoate capsule [Vistaril pamoate capsule] 25 mg PO TID PRN PRN 06/23/17 [History Confirmed 06/19/18] Acetaminophen [Tylenol] 1,000 mg PO Q8H PRN PRN tab 07/01/17 [Rx Confirmed 06/19/18] Docusate Sodium [Colace] 100 mg PO BID #30 cap 07/01/17 [Rx Confirmed 06/19/18] levofloxacin 500 mg tablet 500 mg PO DAILY #5 tab 05/08/18 [Rx Confirmed 06/19/18] zonisamide 100 mg capsule 400 mg PO DAILY cap 05/08/18 [History Confirmed 06/19/18] doxycycline hyclate 100 mg capsule 100 mg PO BID #20 cap NS 06/05/18 [Rx Confirmed 06/19/18] metronidazole 500 mg tablet 500 mg PO TID #30 tab 06/06/18 [Rx Confirmed 06/19/18] doxycycline hyclate 100 mg capsule 100 mg PO BID #6 cap 06/19/18 [Rx Confirmed 06/19/18] metronidazole 500 mg tablet 500 mg PO TID #9 tab 06/19/18 [Rx Confirmed 06/19/18] Subjective Details: Patient presents for follow-up for right buttocks abscess. Patient was placed on Doxy and Flagyl due to culture showing staph aureus as well as anaerobic cocci. Patient states she finished her antibiotics on Tuesday. States the wound seemed to be completely closed on Tuesday. She had no further drainage from the site. Area remains nontender. Objective Details: Right buttock abscess wound appears to be completely closed, no erythema, nontender Assessment AND Plan Problems 1. Abscess of buttock, right L02.31 Plan Due to patient's recurrent issue with infection at this right buttock abscess will give her another 3 days of the Doxy and metronidazole. Wound appears completely closed hopefully this will remain closed and noninfected. Follow-up in 2 weeks. Discussed with patient she is doing better at that time and still no drainage okay to call and cancel appointment. Patient no further questions this time. Florence Mario M.D. Pager: [phone] [facility] [address] [place] [address], [address] [place] [address] Office: [phone] Medications New: Plan Detail Follow Up 2 Weeks Coding Level of Care Code Off vis,est,level 3 Diagnoses Abscess of buttock, right L02.31 06/19/18 0919 <Electronically signed by Florence Mario MD> Date Florence Mario MD Cosigner Signature: Date (if applicable) CC: Ronnell Moreno MD FLUOROSCOPY IN OR/PAIN Observed: 06/15/2018 Status: F Source: [facility] MGT 6:53 AM [facility] [place] REPOSITORY FLUOROSCOPY IN OR/PAIN MGT Ordering Physician: Mao Hickman MD 06/15/2018 7:50 AM FLUOROSCOPY AND SPOT RADIOGRAPHS: Clinical Statement: Chronic pain Comparison: None FINDINGS: 11.4 seconds of fluoroscopic time was utilized. Two spot radiographs were obtained. IMPRESSION: 1. Documentation of utilization of 11.4 seconds fluoroscopic time. 2. Two spot radiographs obtained. For details, refer to the procedure note by the physician performing this procedure. This report is for fluoroscopy documentation purposes only. ---- Electronic Signature on File ---- Signed By: Sean Zepeda MD [email or web address] Dictated: 06/15/2018 8:46 AM Signed: 06/15/2018 8:47 AM Reported By: SEAN ZEPEDA M.D. Signed By: SEAN ZEPEDA M.D. SURGERY VISIT REPORT Observed: 06/02/2018 Status: F Source: [place] 10:23 AM [facility] REPOSITORY [facility] 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 Is patient in pain?: No Allergies Penicillins [PCN] Allergy (Verified 06/01/18 13:01) Rash silicone [Silicone] Allergy (Verified 06/01/18 13:01) Rash doxycycline Adverse Reaction (Verified 06/01/18 13:01) Other hydrochlorothiazide Adverse Reaction (Verified 06/01/18 13:01) Other topiramate [From Topamax] Adverse Reaction (Verified 06/01/18 13:01) Chest tightness Medications Duloxetine Hcl [Cymbalta] 60 mg PO BID 10/08/13 [History Confirmed 05/16/18] Ergocalciferol [Vitamin D] 50,000 unit PO Q7D 06/19/13 [History Confirmed 05/16/18] Iron 325 mg PO BID 06/19/13 [History Confirmed 05/16/18] Levothyroxine [Synthroid] 50 mcg PO DAILY 06/19/13 [History Confirmed 05/16/18] Omeprazole [Prilosec] 20 mg PO BID 06/19/13 [History Confirmed 05/16/18] Biotin 10 mg PO DAILY 12/22/13 [History Confirmed 05/16/18] Calcium Citrate/Vitamin D3 [Calcium Citrate-Vit D3 Tablet] 2 ea PO BID 06/23/17 [History Confirmed 05/16/18] Cyanocobalamin (Vitamin B-12) [Vitamin B-12] 500 mcg PO DAILY 06/23/17 [History Confirmed 05/16/18] Magnesium 500 mg PO DAILY 06/23/17 [History Confirmed 05/16/18] Pnv95/Ferrous Fumarate/FA [ Formula Tablet] 1 ea PO DAILY 06/23/17 [History Confirmed 05/16/18] Tizanidine HCl [Zanaflex] 4 mg PO BID 06/23/17 [History Confirmed 05/16/18] hydrOXYzine pamoate capsule [Vistaril pamoate capsule] 25 mg PO TID PRN PRN 06/23/17 [History Confirmed 05/16/18] Acetaminophen [Tylenol] 1,000 mg PO Q8H PRN PRN tab 07/01/17 [Rx Confirmed 05/16/18] Docusate Sodium [Colace] 100 mg PO BID #30 cap 07/01/17 [Rx Confirmed 05/16/18] levofloxacin 500 mg tablet 500 mg PO DAILY #5 tab 05/08/18 [Rx Confirmed 05/16/18] zonisamide 100 mg capsule 400 mg PO DAILY cap 05/08/18 [History Confirmed 05/16/18] doxycycline hyclate 100 mg capsule 100 mg PO BID #10 cap NS 06/02/18 [Rx Confirmed 06/02/18] Subjective Details: Follow-up for right buttock abscess. Patient did complete 7 days of levofloxacin 500 mg daily however she still had drainage from the right buttocks abscess during the antibiotics and after completion of antibiotics. Patient denies any pain at the site. Objective Details: Right inferior buttocks, a 2-3 mm opening no active drainage or drainage expressed however there was some sanguinous/serous fluid on gauze., No signs of infection. Wound cultures were taken. The wound is about 2-1/2 cm superior/medial but probably less than 5 mm in diameter. Assessment AND Plan Problems 1. Abscess of buttock, right L02.31 Plan Discussed with patient that I would recommend taking the wound cultures and then we would have her on a longer dose of antibiotics once we had her susceptibility and organisms. However if this did not work I would recommend possible excision of this area or further exploration in the OR. This does not appear to be a fistula as the previous cultures were gram-positive does not gram negatives. And on previous rectal exam there is no obvious scar tissue or tract appreciated. Patient was agreeable with plan. No antibiotic currently awaiting initial culture results. Addendum: culture showing Staphylococcus will start doxy until the remaining culture is resulted. Florence Mario M.D. Pager: [phone] [facility] [address] [place] [address], [address] [place] [address] Office: [phone] Orders Orders: Medications New: Plan Detail Follow Up Await wound culture Coding Level of Care Code Off vis,est,level 3 Diagnoses Abscess of buttock, right L02.31 06/02/18 1023 <Electronically signed by Florence Mario MD> Date Florence Mario MD Cosigner Signature: Date (if applicable) CC: Ronnell Moreno MD Observed: 06/01/2018 Status: F Source: [facility] CULTURE, DEEP WOUND 1:00 PM [facility] REPOSITORY Gram Stain Gram Stain 2+ Red Blood Cells No organisms seen Wound Culture ORGANISM 1: Staphylococcus aureus Amount Growth Rare Staphylococcus aureus: REACTION Benzylpenicillin NF >=0.5 R Cefoxitin *NF - Clindamycin $$ <=0.25 S Inducable Clindamycin Resistan - Erythromycin $ 0.5 S Gentamicin $ <=0.5 S Levofloxacin $ 0.25 S Linezolid $$$$ 2 S Moxifloxicin *NF <=0.25 S Oxacillin NF 1 S Tigecycline $$$$ <=0.12 S Rifampin $$ <=0.5 S Tetracycline NF <=1 S Trimethoprim/Sulfametho $ <=10 S Vancomycin $ 1 S (NF) indicates non-formulary drug at [facility]. Approval by Infectious Disease Specialist required before non-formulary drugs may be ordered and/or dispensed. * CLSI guidelines does not recommend testing of cephalosporins. This interpretation is deduced from Beta-lactam/penicillin results. Cult, Anaerobic Studies have confirmed that Anaerobic Gram Positive Cocci are routinely susceptible to: Penicillin/Ampicillin, Ampicillin/Sulbactam, Piperacillin/Tazobactam, Cefoxatin, Ertapenem, Imipenem, Meropenem and Metronidazole and vary in resistance to: Clindamycin and Moxifloxacin. ORGANISM 1: Anaerobic cocci Performed By: #### M100.1500 #### [facility] [address] [place], [place], [id number] SURGERY VISIT REPORT Observed: 05/16/2018 Status: F Source: [place] 1:32 PM [facility] REPOSITORY [facility] [address] [place] [address]. 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 Required: No Is patient in pain?: No Allergies Penicillins [PCN] Allergy (Verified 05/16/18 13:19) Rash silicone [Silicone] Allergy (Verified 05/16/18 13:19) Rash doxycycline Adverse Reaction (Verified 05/16/18 13:19) Other hydrochlorothiazide Adverse Reaction (Verified 05/16/18 13:19) Other topiramate [From Topamax] Adverse Reaction (Verified 05/16/18 13:19) Chest tightness Medications Duloxetine Hcl [Cymbalta] 60 mg PO BID 06/19/13 [History Confirmed 05/16/18] Ergocalciferol [Vitamin D] 50,000 unit PO Q7D 06/19/13 [History Confirmed 05/16/18] Iron 325 mg PO BID 06/19/13 [History Confirmed 05/16/18] Levothyroxine [Synthroid] 50 mcg PO DAILY 06/19/13 [History Confirmed 05/16/18] Omeprazole [Prilosec] 20 mg PO BID 06/19/13 [History Confirmed 05/16/18] Biotin 10 mg PO DAILY 12/22/13 [History Confirmed 05/16/18] Calcium Citrate/Vitamin D3 [Calcium Citrate-Vit D3 Tablet] 2 ea PO BID 06/23/17 [History Confirmed 05/16/18] Cyanocobalamin (Vitamin B-12) [Vitamin B-12] 500 mcg PO DAILY 06/23/17 [History Confirmed 05/16/18] Magnesium 500 mg PO DAILY 06/23/17 [History Confirmed 05/16/18] Pnv95/Ferrous Fumarate/FA [ Formula Tablet] 1 ea PO DAILY 06/23/17 [History Confirmed 05/16/18] Tizanidine HCl [Zanaflex] 4 mg PO BID 06/23/17 [History Confirmed 05/16/18] hydrOXYzine pamoate capsule [Vistaril pamoate capsule] 25 mg PO TID PRN PRN 06/23/17 [History Confirmed 05/16/18] Acetaminophen [Tylenol] 1,000 mg PO Q8H PRN PRN tab 07/01/17 [Rx Confirmed 05/16/18] Docusate Sodium [Colace] 100 mg PO BID #30 cap 07/01/17 [Rx Confirmed 05/16/18] levofloxacin 500 mg tablet 500 mg PO DAILY #5 tab 05/08/18 [Rx Confirmed 05/16/18] zonisamide 100 mg capsule 400 mg PO DAILY cap 05/08/18 [History Confirmed 05/16/18] Subjective Details: 42-year-old female presents for follow-up of right buttocks abscess. Patient was on Levaquin 500 mg p.o. daily for 5 days she was careful to stop her muscle relaxer during this time as there is an interaction. Patient states she is very little drainage from the area only about a drop every 2 days. Denies any pain. Objective Details: Right gluteal/posterior thigh crease: Very minimal drainage on the dressing last changed yesterday, no signs of infection, only a small pinhole opening. Assessment AND Plan Problems 1. Abscess of buttock, right L02.31 Plan Patient right buttocks abscess appears to be healing well with minimal drainage after antibiotics. Outpatient follow-up in 2 weeks to make sure this heals completely. Patient will let us know if there is any increased drainage during this time where she may needs additional antibiotics. Patient is agreeable plan. Florence Mario M.D. Pager: [phone] [facility] [address] [place] [address] [address] [place] [address] Office: [phone] Plan Detail Follow Up 2 Weeks Coding Level of Care Code Off vis,est,level 3 Diagnoses Abscess of buttock, right L02.31 05/16/18 1332 <Electronically signed by Florence Mario MD> Date Florence Mario MD Cosigner Signature: Date (if applicable) CC: Ronnell Moreno MD SURGERY VISIT REPORT Observed: 05/08/2018 Status: F Source: [place] 3:21 PM [facility] [address] [place] [id number] OFFICE VISIT Date of Service: 05/08/18 MR#: [id number] Acct: [id number] Name: TASHA DE Rep #: [id number] : 1975 Provider: Florence Mario MD Age/Sex: 42/F Location: [facility] Status: Signed Intake Vital Signs05/08/18 Height 5 ft 3.25 in 05/08/18 Weight: 167 lb Intake Visit Reasons: Abscess R Buttock Allergies Penicillins [PCN] Allergy (Verified 06/23/17 14:09) Rash silicone [Silicone] Allergy (Verified 06/23/17 14:09) Rash doxycycline Adverse Reaction (Verified 06/23/17 14:09) Other hydrochlorothiazide Adverse Reaction (Verified 06/23/17 14:09) Other topiramate [From Topamax] Adverse Reaction (Verified 06/23/17 14:42) Chest tightness Medications Duloxetine Hcl [Cymbalta] 60 mg PO BID 06/19/13 [History Confirmed 05/08/18] Ergocalciferol [Vitamin D] 50,000 unit PO Q7D 06/19/13 [History Confirmed 05/08/18] Iron 325 mg PO BID 06/19/13 [History Confirmed 05/08/18] Levothyroxine [Synthroid] 50 mcg PO DAILY 06/19/13 [History Confirmed 05/08/18] Omeprazole [Prilosec] 20 mg PO BID 06/19/13 [History Confirmed 05/08/18] Biotin 10 mg PO DAILY 12/22/13 [History Confirmed 05/08/18] Calcium Citrate/Vitamin D3 [Calcium Citrate-Vit D3 Tablet] 2 ea PO BID 06/23/17 [History Confirmed 05/08/18] Cyanocobalamin (Vitamin B-12) [Vitamin B-12] 500 mcg PO DAILY 06/23/17 [History Confirmed 05/08/18] Magnesium 500 mg PO DAILY 06/23/17 [History Confirmed 05/08/18] Pnv95/Ferrous Fumarate/FA [ Formula Tablet] 1 ea PO DAILY 06/23/17 [History Confirmed 05/08/18] Tizanidine HCl [Zanaflex] 4 mg PO BID 06/23/17 [History Confirmed 05/08/18] hydrOXYzine pamoate capsule [Vistaril pamoate capsule] 25 mg PO TID PRN PRN 06/23/17 [History Confirmed 05/08/18] Acetaminophen [Tylenol] 1,000 mg PO Q8H PRN PRN tab 07/01/17 [Rx] Docusate Sodium [Colace] 100 mg PO BID #30 cap 07/01/17 [Rx] levofloxacin 500 mg tablet 500 mg PO DAILY #5 tab 05/08/18 [Rx Confirmed 05/08/18] zonisamide 100 mg capsule 400 mg PO DAILY cap 05/08/18 [History Confirmed 05/08/18] PFSH Medical History Hemorrhoids (Acute) Acid reflux (Acute) Anxiety (Acute) Arthritis (Acute) Thyroid disorder (Acute) Surgical History Hx of hysterectomy (Acute) Hx of gastric bypass (Acute) Hx of cholecystectomy (Acute) History of carpal tunnel surgery of left wrist (Acute) Family History Mother Diabetes Cancer Hypertension Heart disease Father Heart disease Hypertension Brother Hypertension Asthma Social History Smoking Status: Never smoker second hand exposure: No alcohol intake: never substance use type: does not use caffeine: Yes what type of physical activity do you participate in: walking seatbelt use: always HPI HPI HPI: TASHA DE, is a 42 F who presents to the office today for right buttocks abscess. Patient states she has had this since 03/24/18. She did see her PCP who did give her 2 different antibiotics patient was not sure exactly what they were at this time thinks it may have been cephalexin and possibly Augmentin. Patient states that even after the antibiotics she still continued to have drainage denies any pain at the site. She states the drainage can be a yellowish/greenish in color. Patient did have a second wound culture done when she was given the doxycycline after seeing her PCP again on 05/03/2018. ROS General General: No fatigue Gastro Gastrointestinal: No abdominal pain, No nausea or vomiting, No diarrhea, No constipation, No hemorrhoids, No blood in stool Exam Const General: cooperative, comfortable, no acute distress GI Inspection: non-distended Palpation: soft, nontender Other: Right buttocks: Small 2 mm open wound about 5 cm from the anus at 4 to 5:00 with 12:00 being posterior. No signs of inflammation or infection. No active drainage on exam, small amount of yellowish drainage on gauze, Nontender, digital rectal exam: no masses or gross blood on exam, no obvious internal hemorrhoid. Assessment AND Plan Problems 1. Abscess of buttock, right L02.31 Plan Patient's wound cultures from 05/03/18 grew 2 organisms. One was susceptible to doxy however the other not listed as antibiotic. Her both are susceptible to levofloxacin. Will place patient on levofloxacin 500 mg p.o. daily for 5 days. However, there are interactions with her taking tizanidine as well as hydroxyzine will have her stop those while taking antibiotics. The wound does not appear to be infected and there is only couple millimeters side open wound no active drainage on examination but there was small amount on the previous gauze. No need for further I AND D at this point. Patient was agreeable plan. Follow-up in 1 week. Florence Mario M.D. Pager: [phone] [facility] [address] [place] [address], [facility], [address] [place] [address] Office: [phone] Medications New: levofloxacin stop tizanidine, hydroxyzine while on 500 mg PO DAILY Florence Mario MD abx Discontinued: oxycodone Discontinued Reason: Pt10 mg (2 x 5 mg) PO Q6H PRN PRN Pain Manisha Walden no longer taking Plan Detail Follow Up 1 Week Coding Level of Care Code Off vis,ivan,level 3 Diagnoses Abscess of buttock, right L02.31 05/08/18 1521 <Electronically signed by Florence Mario MD> Date Florence Mario MD Cosigner Signature: Date (if applicable) CC: Ronnell Moreno MD Observed: 05/03/2018 Status: F Source: [facility] CULTURE, WOUND 12:00 AM [facility] REPOSITORY Gram Stain Gram Stain Rare White Blood Cells 1+ Gram positive rods Rare Gram positive cocci Wound Culture ORGANISM 1: Serratia marcescens Amount Growth 2+ ORGANISM 2: Staphylococcus epidermidis Amount Growth 2+ Serratia marcescens: REACTION Amoxacillin/Clavulanic Acid $ 16 R Cefazolin $ >=64 R Cefepime $ <=1 S Ceftriaxone $ <=1 S Ciprofloxacin $ <=0.25 S Ertapenim $$$ <=0.5 S Gentamicin $ <=1 S Levofloxacin $ <=0.12 S Tobramycin $ <=1 S Trimethoprim/Sulfametho $ <=20 S (NF) indicates non-formulary drug at [facility]. Approval by Infectious Disease Specialist required before non-formulary drugs may be ordered and/or dispensed. Staphylococcus epidermidis: REACTION Benzylpenicillin NF >=0.5 R Cefoxitin *NF + Clindamycin $$ >=8 R Inducable Clindamycin Resistan - Erythromycin $ >=8 R Gentamicin $ <=0.5 S Levofloxacin $ <=0.12 S Linezolid $$$$ 1 S Oxacillin NF >=4 R Tigecycline $$$$ 0.25 S Rifampin $$ <=0.5 S Tetracycline NF 2 S Vancomycin $ 2 S (NF) indicates non-formulary drug at [facility]. Approval by Infectious Disease Specialist required before non-formulary drugs may be ordered and/or dispensed. * CLSI guidelines does not recommend testing of cephalosporins. This interpretation is deduced from Beta-lactam/penicillin results. Performed By: #### M100.1400 #### [facility] [address] [place] [address], [id number] MRI LIVER WO/W Observed: 04/17/2018 Status: F [facility] PM [facility] REPOSITORY * * *Final Report* * * DATE OF EXAM: Apr 17 2018 3:39PM [facility] 0727 - MRI LIVER WO/W IVCON / PROCEDURE REASON: multiple diagnoses * * * * Physician Interpretation * * * * MRI OF THE ABDOMEN WITHOUT AND WITH CONTRAST CLINICAL HISTORY: Liver mass. Further characterization requested. COMPARISON: CT abdomen and pelvis 12/01/2016 TECHNIQUE: Using the torso phased array coil, axial STIR, T1 weighted in- and gja-yo-[id number] and coronal HASTE images were obtained. Flow sensitive imaging of the portal vein was performed. Then, using a 3- D GRE T1 weighted sequence, dynamic images were obtained before, during and after the administration of intravenous gadolinium (15 cc Dotarem). RESULT: Liver: Lobulated T2 hyperintense mass within segment VIII at the dome with nodular centripetal progressive contrast enhancement and without restricted diffusion. Normal surface contour. No steatosis. Spleen: No mass or splenomegaly. Adrenal glands: No mass. Kidneys/collecting systems: No mass or obstructive uropathy. Gallbladder/biliary tree/pancreas: Post cholecystectomy. No obvious filling defects within the biliary tree. Common duct diameter of up to 7 mm. Normal caliber main pancreatic duct with normal insertion. Mesentery/retroperitoneum/other: Patent vasculature. No free fluid or adenopathy. No bowel obstruction with Patel-en-Y gastric bypass. IMPRESSION: RIGHT HEPATIC HEMANGIOMA. Chair Upholsterer: PSCB Transcribe Date/Time: Apr 17 2018 4:25P Dictated by : TRAVIS RAGLAND MD This examination was interpreted and the report reviewed and electronically signed by: TRAVIS RAGLAND MD on Apr 17 2018 4:32PM EST [id number] Observed: 04/17/2018 Status: COMPLETED Source: [place] 3:26 PM [facility] REPOSITORY HNO ID: [id number] Author: Shelley () Augusto Barr Service: (none) Author Type: Pairer Type: Progress Notes Filed: 04/17/2018 3:27 PM Note Text: Radiology Service Progress Note PATIENT NAME: Tasha De DATE OF SERVICE: April 17, 2018 TIME: 3:26 PM PATIENT IDENTITY VERIFICATION COMPLETED USING TWO (2) METHODS: Patient confirmed name verbally and Date of . PATIENT GENDER DATA: Female. status: : No status: NO. PATIENT RELEVANT IMPLANT DATA REVIEWED: Yes CONTRAST INDUCED NEPHROPATHY RISK FACTORS: Not applicable CREATININE: Creatinine Date Value Ref Range Status 11/25/2017 0.71 0.58 - 0.96 mg/dL Final 11/25/2016 0.71 0.58 - 0.96 mg/dL Final 11/25/2016 0.72 0.58 - 0.96 mg/dL Final eGFR-All Other Races Date Value Ref Range Status 11/25/2017 >60 . Final Comment: eGFR (Estimated GFR) Units of measure: mL/min/1.73 meters squared eGFR is derived from the reexpressed MDRD Study equation using the following parameters: serum creatinine, age, gender and race. The creatinine assay has been calibrated to be traceable to IDMS. An eGFR <60 mL/min/1.73m2 for >3 months is consistent with chronic kidney disease. Refer to KDOQI guidelines for clinical interpretation. In patients with unstable renal function, e.g. those with acute kidney injury, the eGFR may not accurately reflect actual GFR. eGFR- Date Value Ref Range Status 11/25/2017 >60 Final P.O.C.T. RESULTS: N/A April 17, 2018 RADIOLOGIST NOTIFIED?: No ALLERGIES: Reviewed and unchanged CONTRAST ALLERGY: NO. PERIPHERAL IV ACCESS: Ambulatory: IV type: A peripheral IV was started in the Left antecubital site with a Angio cath: 22 gauge., Site assessment: Clean,Dry and Intact, Site disposition Discontinued RADIOLOGY DEPARTMENT: MR; Exam(s) Completed: Body: Liver (routine) SIGNED BY: RT Sigrid April 17, 2018 3:26 PM OFFICE VISIT Observed: 04/12/2018 Status: UNK Source: [facility] (NEURO-GENERAL) 2:06 PM [facility]POS[facility] Chief Complaint Migraine F/U History of Present Illness Here for follow-up of V[place]LEGAS. Last seen 11/2017. PCP Dr. Moreno. Taking ZNS 100 mg 4 qhs. Doing well. Has only had to take rizatriptan 2 times since last seen. I've been able to get my life back. Initial sxs of drowsiness but now tolerating medication. Some increas ed bruising; blood work from PCP everything turned out fine. Daughter who is 12 does not have migraines; son who is 20 yo has migraines. Occasional tension VILLEGAS, 3 times in past 4-5 months; previous V[place]LEGAS frequency, daily. Increased stress; was in hospital with bad reaction for 2 weeks; even with increased stress, no increased VILLEGAS. Had hysterectomy, no oophorectomy. Review of Systems Constitutional: unexplained weight loss, but no fever and no chills. appetite is not poor Eyes: no eyesight problems, but no blurred vision and no diplopia. ENT: no nosebleeds, but no hearing loss, no tinnitus and no sore throat. no vertigo Cardiovascular: no chest pain, no shortness of breath and no palpitations. Respiratory: no chronic cough, no wheezing that is consistent with asthma and no asthma. Gastrointestinal: no abdominal pain, no nausea, no vomiting, no diarrhea and no constipation. Genitourinary: no urinary frequency, no dysuria and no incontinence. Musculoskeletal: no arthralgias, no myalgias and no back pain. Skin: no rashes. Neurological: headaches, but as noted in HPI, no tingling, no numbness and no limb weakness. Psychiatric: no memory lapses or loss, no depression and no anxiety. Endocrine: no excessive thirst, no cold intolerance and no heat intolerance. Hematologic/Lymphatic: bruises easily, but does not bleed easily. Allergic/Immunology: no frequent infections. Active Problems Claustrophobia (300.29) (F40.240) Intolerant of MRI. Intractable chronic migraine without aura and without status migrainosus (346.71) (G43.719) Significant benefit from zonisamide 100 mg 4 qhs. 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 Has 2 children 12 yo daughter, 20 yo son, 6 stepchildren 10-15) Never a smoker No alcohol use No illicit drug use Allergies Ambien Adverse Reaction; Recorded By: Melissa Palomares; 11/28/2017 2:20:05 PM Keeps taking medication during the night hydrochlorothiazide Recorded By: Joe Blank; 11/28/2017 1:36:24 PM Penicillins Recorded By: Joe Blank; 11/28/2017 1:36:24 PM Silicone LIQD Recorded By: Joe Blank; 11/28/2017 1:36:24 PM Statins Recorded By: Joe Blank; 11/28/2017 1:36:24 PM topiramate Adverse Reaction; Recorded By: Melissa Palomares; 11/28/2017 2:20:05 PM Severe palpitations necessitating ED visit Current Meds Medication NameInstructionReason LORazepam 1 MG Oral TabletTAKE 1 TABLET 1 HOUR PRIOR TO MRI. MAY REPEAT X 1. DO NOT DRIVE WHEN TAKING.Claustrophobia Zonisamide 100 MG Oral CapsuleTAKE 4 CAPSULES AT BEDTIME.Intractable chronic migraine without aura and without status migrainosus Benzoyl Peroxide-Erythromycin 5-3 % External Gel DULoxetine HCl - 60 MG Oral Capsule Delayed Release Particles1 PO BID HydrOXYzine Pamoate 25 MG Oral Capsule Levothyroxine Sodium 50 MCG Oral Tablet Lidocaine 4 % External Cream Nyamyc [id number] UNIT/GM External Powder Omeprazole 20 MG Oral Capsule Delayed Release Oxybutynin Chloride 5 MG Oral Tablet Oxybutynin Chloride ER 10 MG Oral Tablet Extended Release 24 Hour Rizatriptan Benzoate 10 MG Oral Tablet TiZANidine HCl - 4 MG Oral Tablet Vitals Vital Signs Recorded: [id number] 01:43PM Heart Rate66 [id number] Physical Exam > 50% of 25 minute visit spent discussing current situation, options; counseling and coordination of care. Results/Data I have reviewed the following laboratory studies, radiology studies and other diagnostic testing: MRI Brain w/wo [id number] 10:40AMMaMelissa wilson [Nov 28, 2017 2:55PM Melissa Palomares] Reason: Unspecified for MRI Brain w/wo Contrast Test NameResultFlagReference MRI Brain w/wo Contrast(Report) Interpreted by: JON RENNER 12/13/17 10:54 Patient Name: TASHA DE STUDY: MRI BRAIN W/WO CONTRAST; 12/13/2017 10:40 am INDICATION: Intractable migraine. Evaluate for intracranial abnormality. Approved. COMPARISON: None. ACCESSION NUMBER(S): [id number] ORDERING CLINICIAN: MELISSA PALOMARES TECHNIQUE: The brain was studied in the sagittal, axial and coronal planes utilizing FLAIR, T1 and T2 weighted images. FINDINGS: There is a normal-size ventricular system. There are scattered foci of increased signal in the subcortical and periventricular white matter best a ppreciated on FLAIR images. These likely represent foci of demyelination of uncertain cause and significance and may be physiologic at this patient's stated age. There is no evidence of intracranial mas s or extra-axial collection. The skull base, paranasal sinuses and orbital structures are unremarkable. Diffusion weighted images and associated ADC maps of the brain were unremarkable. There is no evid ence of diffusion restriction to suggest the presence of acute infarction. Following intravenous injection of 16 cc MultiHance,there is no abnormal enhancement. IMPRESSION: *There is no evidence of he mohrage, mass lesion or acute infarction. THIS EXAMINATION [place]PRET[place] [facility] [place] Transcribed by: [email or web address], User Electronically signed by: [email or web address], User 12/13/17 10:54 Diagnoses/Problems Intractable chronic migraine without aura and without status migrainosus (346.71) (G43.719) Significant benefit from zonisamide 100 mg 4 qhs. Orders Intractable chronic migraine without aura and without status migrainosus Changed: From Rizatriptan Benzoate 10 MG Oral Tablet To Rizatriptan Benzoate 10 MG Oral Tablet TAKE 1 TABLET BY MOUTH AT ONSET OF HEADACHE. MAY REPEAT EVERY 2 HOURSAS NEEDED. MAXIMUM 3 TABLETS IN 24 HOURS Rx By: Melissa Palomares; Dispense: 30 Days ; #:9 Tablet; Refill: 0;For: Intractable chronic migraine without aura and without status migrainosus; ASHWIN = N; Sent To: [facility] Renew: Zonisamide 100 MG Oral Capsule; TAKE 4 CAPSULES AT BEDTIME Rx By: Melissa Palomares; Dispense: 90 Days ; #:360 Capsule; Refill: 3;For: Intractable chronic migraine without aura and without status migrainosus; ASHWIN = N; Sent To: [facility] Follow-up visit in 6 months Outpatient Follow-up Status: Hold For - Scheduling Requested for: [id number] Ordered Stat;For: Intractable chronic migraine without aura and without status migrainosus; Ordered By: Melissa Palomares Performed: Due: 11Jul2018 Provider Impressions Recurrent VILLEGAS consistent with migraine with aura; significant benefit from zonisamide 100 mg 4 qhs. Patient Discussion/Summary 1. Continue the same dose of zonisamide 100 mg 4 every night at bedtime. New prescription for 3 months sent to the [facility]. 2. Continue the rizatriptan 10 mg as needed. New prescription sent to the [facility]. 3. Some suggestions for preventing or controlling your migraines: - Magnesium (preferably glycinate but oxide or sulfate are acceptable 400-500 mg daily is recommended as a potential migraine preventative treatment by the [place] [employer]. Side effects include diarrhea. - Riboflavin (vitamin B2) can be another beneficial migraine preventative treatment, 200 mg twice a day. - Another potential beneficial migraine preventative treatment is coenzyme Q10 150 mg twice a day. - Melatonin 3-5 mg 2-4 hours before bedtime can be helpful for difficulty with sleeping and for headaches, especially cluster headaches but also migraines. - Avoid triggers that can cause or worsen migraines (food, lack of sleep, stress) - Keep a diary of your headaches to note how often you get them, how long they last and any other helpful information - Avoid taking medication for treatment of headaches (NOT preventative medication) more than 3 days per week. This includes both prescription medication and over the counter medication. - Take your preventative medication as directed. Let me know if you have side effects or problems with the medication. Do not suddenly stop taking the medication. 4. Return in 6 months, sooner if needed. Signatures Electronically signed by : Melissa Palomares MD; Apr 12 2018 2:06PM EST (Author) PROGRESS Observed: 04/06/2018 Status: COMPLETED Source: [place] 11:08 AM [facility] REPOSITORY [facility] ID: [id number] Author: Bharti Go) Ronny Service: (none) Author Type: Registered Dietitian Type: Progress Notes Filed: 04/06/2018 11:52 AM Note Text: Nutritional Therapy Re-Assessment PAIN: Is the patient having any pain that is interfering with oral / enteral intake? No 0 on a scale of 0 to 10 PROGRESS: Nutrition Intervention (date of last encounter 12/22/2017: Comprehensive Nutrition Education ? 1.Take daily multivitamin/multi mineral plus VIt D3 3,000 IU, Vit B12 500 mcg every other day due to elevated level, Iron 45 mg and calcium citrate 0477-6647 mg/day . It is okay to use combination vitamin/minerals to reduce pill volume. Page 43 of Your Guide to Surgery - partially met 2. Protein goal: 71- 89 grams protein/day - met 3. Fluid goal: 64oz per day water. (no calories/sugar, no caffeine, no carbonation, no alcohol) Limit to 8 ounces Fairlife low fat chocolate milk per day - . - met 4. Exercise goal: 150-250 minutes combination cardio/strength training/week - partially met 5. Practice these: Eat in this order protein first, vegetable and fruit second and whole grain carbohydrates last. - - met * Separate eating and drinking by 30 minutes * Chew your food 20-30x per bite * Meals should last 30 minutes. 6. Best Aftercare with Psychology 7. Always eat 3-4 ounces protein plus vegetables with meals, add only 1/4 to 1/2 cup carbohydrate - - met CHANGES IN TREATMENT: Patient met goal(s): Partially Actions to implement interventions: Diet History: Togolese yogurt (2) egg (2) and cheese (1) (4) nuggets - 2 ounces chicken Fairlife Milk 10 ounces - 15 grams/day eliminated sugar from cereal/milk and from soda Beverages - water - 64 ounces/day, diet iced tea (1 bottle) Increased activities of daily living - yardwork Vitamins/Supplements - calcium citrate chews 3x/day; Celebrate MVI grape chewable - with D and VIt B12, Iron 60 mg/VIt D walking CLINICAL IMPRESSIONS: excellent REVISIONS IN DIAGNOSIS: Diagnosis: has not changed. Allergies: Doxycycline Hcl; Effexor [Venlafaxine Hcl]; Hctz [Other]; Lipitor [Atorvastatin Calcium]; Penicillins; Pravastatin; Silicone; Slsmfto-Ejd-Gbi Reductase Inhibitors; Topamax [Topiramate]; Zocor [Simvastatin]; Zoloft [Sertraline Hcl] Medications: Current Outpatient Prescriptions: iv contrast (will be provided with radiology test) MRI Liver Inject, intravenously, once for 1 dose. No IV access, insert saline lock prior to the beginning of sedation, infusion, injection of imaging exam. Discontinue saline lock post exam. If Pt. has a central line or IVAD, may access for administration according to line specific nursing protocol. Once exam is complete flush line and de-access according to line specific nursing protocol in the MR contrast administration guidelines link. Disp: 1 Each Rfl: 0 omeprazole (PRILOSEC) 20 mg capsule TAKE 1 CAPSULE TWICE A DAY ON EMPTY STOMACH Disp: 56 capsule Rfl: 1 hydrOXYzine pamoate (VISTARIL) 25 mg capsule Take 1 capsule by mouth three times daily as needed. Disp: 90 capsule Rfl: 0 mupirocin (BACTROBAN) 2 % ointment Apply 1 application to affected area three times daily. Disp: 1 Tube Rfl: 1 zonisamide (ZONEGRAN) 50 mg capsule Take 50 mg by mouth once daily. Disp: Rfl: oxybutynin (DITROPAN) 5 mg tablet Take 3 tablets by mouth once daily. Disp: 270 tablet Rfl: 3 cholecalciferol, Vitamin D3, (VITAMIN D3) 50,000 unit cap capsule TAKE 1 CAPSULE ONCE A WEEK Disp: 4 capsule Rfl: 11 VITAMIN PLUS LOW IRON 27 mg iron- 1 mg tab TAKE 1 TABLET DAILY (Patient not taking: Reported on 04/06/2018) Disp: 28 tablet Rfl: 11 Erythromycin-Benzoyl Peroxide (BENZAMYCIN) gel Apply thin layer to entire acne-prone area(s) of face (optional neck and trunk areas but bewareof bleaching clothing) once to twice per day as directed and tolerated. Disp: 25 g Rfl: 3 Nystatin, Bulk, 1 billion unit powd 1 application three times daily as needed. Disp: 1 Each Rfl: 11 rizatriptan (MAXALT) 10 mg tablet Take 1 tablet by mouth as needed. May repeat in 2 hours if needed Disp: 9 tablet Rfl: 0 nystatin (MYCOSTATIN) ointment Apply twice a week to areas prone to rash. Disp: 30 g Rfl: 2 montelukast (SINGULAIR) 10 mg tablet Take 1 tablet by mouth daily at bedtime. (Patient not taking: Reported on 04/06/2018 ) Disp: 30 tablet Rfl: 0 fexofenadine-pseudoephedrine (NATALYA D) 60-120 mg per tablet Take 1 tablet by mouth twice daily. (Patient not taking: Reported on 04/06/2018 ) Disp: 60 tablet Rfl: 3 DITROPAN XL 10 mg 24 hr tablet Take 1 tablet by mouth once daily. (Patient not taking: Reported on 04/06/2018 ) Disp: 90 tablet Rfl: 3 fesoterodine (TOVIAZ) 4 mg Tb24 extended release tablet Take 1 tablet by mouth once daily. (Patient not taking: Reported on 04/06/2018 ) Disp: 90 tablet Rfl: 3 triamcinolone acetonide (KENALOG) 0.1 % cream Apply 1 application to affected area three times daily. Apply sparingly to area for rash/itching. (Patient not taking: Reported on 04/06/2018 ) Disp: 30 g Rfl: 0 levothyroxine (SYNTHROID) 50 mcg tablet TAKE 1 TABLET DAILY Disp: 90 tablet Rfl: 3 COMPOUNDED PRESCRIPTION KNEE HIGH COMPRESSION STOCKINGS 30- 40 MM. DX: EDEMA Disp: 8 Each Rfl: 2 ascorbic acid (VITAMIN C) 500 mg tablet Take 500 mg by mouth once daily. Disp: Rfl: busPIRone (BUSPAR) 5 mg tablet Take 5 mg by mouth twice daily. Disp: Rfl: TIZANIDINE HCL (TIZANIDINE ORAL) Take by mouth twice daily as needed. Disp: Rfl: CALCIUM CITRATE/VITAMIN D3 (CALCIUM CITRATE + ORAL) Take by mouth. Disp: Rfl: Ferrous Sulfate 325 mg (65 mg iron) tablet Take 1 tablet by mouth daily with breakfast. Disp: 30 tablet Rfl: 12 duloxetine hcl(CYMBALTA 60 MG CAP) Take one tab twice a day Disp: 0 Rfl: 0 No current facility-administered medications for this visit. (currently taking) Anthropometrics: Height: Last 1 Encounter Ht Readings: Date: Ht: 04/06/2018 160.5 cm (5' 3.2) Current weight: Last 1 Encounter Wt Readings: Date: Wt: 04/06/2018 76.2 kg (168 lb) Body mass index is 29.57 kg/m?. Resting Metabolic Rate: 1401 NUTRITION ASSESSMENT: Malnutrition Screening Significant unintentional weight loss? No Eating less than 75% of usual intake for more than 2 weeks? No RECOMMENDED MALNUTRITION DIAGNOSIS: NO MALNUTRITION IDENTIFIED Nutritional status: No Malnutrition Identified Educational materials provided: none this visit READINESS TO LEARN Cognitive ability: Alert and oriented Motivation to learn: Eager Family support: High - Very involved in pt care Instruction provided to: Patient Patient learns best by: Individual Instruction Written Instruction - Hand-outs Verbal Instruction Factors affecting learning: None Physical limitations affecting learning: None Likelihood of Adherence: High 4.5 years post op weight loss surgery with weight regain/hypglycemia related to sugar intake. Since last session, patient presents with 16 pound weight loss x 3 months by elimination of sugar in food, snacks and soda. BMI 29 in overweight classification, no longer in obesity classification. Increased water consumption, increased protein intake to 70 g/day, increased exercise to daily activity 20-30 minutes/session. Acquired assistance for vitamin/minerals from [employer] ([employer] program) due to income limitations. Takes all recommended supplementation Nutrition Diagnosis: Overweight Obesity, related to; food/nutrition - related knowledge deficit, as evidenced by BMI above normative standard for age and gender. Nutrition Intervention 04/06/2018: Modify type and amount of intake at meals and snacks 1. Exercise - 30 minutes exercise walking/yardwork, swimming, lifting 2. Vitamin/minerals: Celebrate complete chews (2) per day (includes D and B12) plus (1) 60 mg iron, PLUS (3) Calcium citrate chews 3. Protein: Continue to eat 5 small meals/day (2 Togolese yogurt, 2 ounces meat protein, 2 egg/cheese - minimum 70 grams protein/day 4. Continue to avoid all added sugar in food/snacks/drinks - 64 ounces per day water. Nutrition Monitoring AND Evaluation: BMI < 28 Criteria: weight check Need for Follow up: August 2018 for annual appointment Referred/Supervised by: Mirela GERMAIN Billing Type: Re-assess/15 min 2 units SIGNATURE: Bharti Welsh RD PATIENT NAME: Tasha Morrell Jim DATE: April 06, 2018 TIME: 11:08 AM PAGER: [id number] CNCNPATED Observed: 04/06/2018 Status: COMPLETED Source: [place] 11:00 AM [facility] REPOSITORY Education ([facility]) TASHA DE ([id number]) 1975 F Date Time Provider Department 04/06/18 11:00 AM BHARTI WELSH (JENNIFER) [facility] Reason for Visit: Patient Education [91] Reassessment [674] Progress Notes: Bharti Welsh RD 04/06/2018 11:52 AM Signed Nutritional Therapy Re-Assessment PAIN: Is the patient having any pain that is interfering with oral / enteral intake? No 0 on a scale of 0 to 10 PROGRESS: Nutrition Intervention (date of last encounter 12/22/2017: Comprehensive Nutrition Education ? 1.Take daily multivitamin/multi mineral plus VIt D3 3,000 IU, Vit B12 500 mcg every other day due to elevated level, Iron 45 mg and calcium citrate 0166-8479 mg/day . It is okay to use combination vitamin/minerals to reduce pill volume. Page 43 of Your Guide to Surgery - partially met 2. Protein goal: 71- 89 grams protein/day - met 3. Fluid goal: 64oz per day water. (no calories/sugar, no caffeine, no carbonation, no alcohol) Limit to 8 ounces Fairlife low fat chocolate milk per day - . - met 4. Exercise goal: 150-250 minutes combination cardio/strength training/week - partially met 5. Practice these: Eat in this order protein first, vegetable and fruit second and whole grain carbohydrates last. - - met * Separate eating and drinking by 30 minutes * Chew your food 20-30x per bite * Meals should last 30 minutes. 6. Best Aftercare with Psychology 7. Always eat 3-4 ounces protein plus vegetables with meals, add only 1/4 to 1/2 cup carbohydrate - - met CHANGES IN TREATMENT: Patient met goal(s): Partially Actions to implement interventions: Diet History: Togolese yogurt (2) egg (2) and cheese (1) (4) nuggets - 2 ounces chicken Fairlife Milk 10 ounces - 15 grams/day eliminated sugar from cereal/milk and from soda Beverages - water - 64 ounces/day, diet iced tea (1 bottle) Increased activities of daily living - yardwork Vitamins/Supplements - calcium citrate chews 3x/day; Celebrate MVI grape chewable - with D and VIt B12, Iron 60 mg/VIt D walking CLINICAL IMPRESSIONS: excellent REVISIONS IN DIAGNOSIS: Diagnosis: has not changed. Allergies: Doxycycline Hcl; Effexor [Venlafaxine Hcl]; Hctz [Other]; Lipitor [Atorvastatin Calcium]; Penicillins; Pravastatin; Silicone; Fsefixh-Awx-Sjq Reductase Inhibitors; Topamax [Topiramate]; Zocor [Simvastatin]; Zoloft [Sertraline Hcl] Medications: Current Outpatient Prescriptions: iv contrast (will be provided with radiology test) MRI Liver Inject, intravenously, once for 1 dose. No IV access, insert saline lock prior to the beginning of sedation, infusion, injection of imaging exam. Discontinue saline lock post exam. If Pt. has a central line or IVAD, may access for administration according to line specific nursing protocol. Once exam is complete flush line and de-access according to line specific nursing protocol in the MR contrast administration guidelines link. Disp: 1 Each Rfl: 0 omeprazole (PRILOSEC) 20 mg capsule TAKE 1 CAPSULE TWICE A DAY ON EMPTY STOMACH Disp: 56 capsule Rfl: 1 hydrOXYzine pamoate (VISTARIL) 25 mg capsule Take 1 capsule by mouth three times daily as needed. Disp: 90 capsule Rfl: 0 mupirocin (BACTROBAN) 2 % ointment Apply 1 application to affected area three times daily. Disp: 1 Tube Rfl: 1 zonisamide (ZONEGRAN) 50 mg capsule Take 50 mg by mouth once daily. Disp: Rfl: oxybutynin (DITROPAN) 5 mg tablet Take 3 tablets by mouth once daily. Disp: 270 tablet Rfl: 3 cholecalciferol, Vitamin D3, (VITAMIN D3) 50,000 unit cap capsule TAKE 1 CAPSULE ONCE A WEEK Disp: 4 capsule Rfl: 11 VITAMIN PLUS LOW IRON 27 mg iron- 1 mg tab TAKE 1 TABLET DAILY (Patient not taking: Reported on 04/06/2018) Disp: 28 tablet Rfl: 11 Erythromycin-Benzoyl Peroxide (BENZAMYCIN) gel Apply thin layer to entire acne-prone area(s) of face (optional neck and trunk areas but bewareof bleaching clothing) once to twice per day as directed and tolerated. Disp: 25 g Rfl: 3 Nystatin, Bulk, 1 billion unit powd 1 application three times daily as needed. Disp: 1 Each Rfl: 11 rizatriptan (MAXALT) 10 mg tablet Take 1 tablet by mouth as needed. May repeat in 2 hours if needed Disp: 9 tablet Rfl: 0 nystatin (MYCOSTATIN) ointment Apply twice a week to areas prone to rash. Disp: 30 g Rfl: 2 montelukast (SINGULAIR) 10 mg tablet Take 1 tablet by mouth daily at bedtime. (Patient not taking: Reported on 04/06/2018 ) Disp: 30 tablet Rfl: 0 fexofenadine-pseudoephedrine (NAATLYA D) 60-120 mg per tablet Take 1 tablet by mouth twice daily. (Patient not taking: Reported on 04/06/2018 ) Disp: 60 tablet Rfl: 3 DITROPAN XL 10 mg 24 hr tablet Take 1 tablet by mouth once daily. (Patient not taking: Reported on 04/06/2018 ) Disp: 90 tablet Rfl: 3 fesoterodine (TOVIAZ) 4 mg Tb24 extended release tablet Take 1 tablet by mouth once daily. (Patient not taking: Reported on 04/06/2018 ) Disp: 90 tablet Rfl: 3 triamcinolone acetonide (KENALOG) 0.1 % cream Apply 1 application to affected area three times daily. Apply sparingly to area for rash/itching. (Patient not taking: Reported on 04/06/2018 ) Disp: 30 g Rfl: 0 levothyroxine (SYNTHROID) 50 mcg tablet TAKE 1 TABLET DAILY Disp: 90 tablet Rfl: 3 COMPOUNDED PRESCRIPTION KNEE HIGH COMPRESSION STOCKINGS 30- 40 MM. DX: EDEMA Disp: 8 Each Rfl: 2 ascorbic acid (VITAMIN C) 500 mg tablet Take 500 mg by mouth once daily. Disp: Rfl: busPIRone (BUSPAR) 5 mg tablet Take 5 mg by mouth twice daily. Disp: Rfl: TIZANIDINE HCL (TIZANIDINE ORAL) Take by mouth twice daily as needed. Disp: Rfl: CALCIUM CITRATE/VITAMIN D3 (CALCIUM CITRATE + ORAL) Take by mouth. Disp: Rfl: Ferrous Sulfate 325 mg (65 mg iron) tablet Take 1 tablet by mouth daily with breakfast. Disp: 30 tablet Rfl: 12 duloxetine hcl(CYMBALTA 60 MG CAP) Take one tab twice a day Disp: 0 Rfl: 0 No current facility-administered medications for this visit. (currently taking) Anthropometrics: Height: Last 1 Encounter Ht Readings: Date: Ht: 04/06/2018 160.5 cm (5' 3.2) Current weight: Last 1 Encounter Wt Readings: Date: Wt: 04/06/2018 76.2 kg (168 lb) Body mass index is 29.57 kg/m?. Resting Metabolic Rate: 1401 NUTRITION ASSESSMENT: Malnutrition Screening Significant unintentional weight loss? No Eating less than 75% of usual intake for more than 2 weeks? No RECOMMENDED MALNUTRITION DIAGNOSIS: NO MALNUTRITION IDENTIFIED Nutritional status: No Malnutrition Identified Educational materials provided: none this visit READINESS TO LEARN Cognitive ability: Alert and oriented Motivation to learn: Eager Family support: High - Very involved in pt care Instruction provided to: Patient Patient learns best by: Individual Instruction Written Instruction - Hand-outs Verbal Instruction Factors affecting learning: None Physical limitations affecting learning: None Likelihood of Adherence: High 4.5 years post op weight loss surgery with weight regain/hypglycemia related to sugar intake. Since last session, patient presents with 16 pound weight loss x 3 months by elimination of sugar in food, snacks and soda. BMI 29 in overweight classification, no longer in obesity classification. Increased water consumption, increased protein intake to 70 g/day, increased exercise to daily activity 20-30 minutes/session. Acquired assistance for vitamin/minerals from [employer] ([employer] program) due to income limitations. Takes all recommended supplementation Nutrition Diagnosis: Overweight Obesity, related to; food/nutrition - related knowledge deficit, as evidenced by BMI above normative standard for age and gender. Nutrition Intervention 04/06/2018: Modify type and amount of intake at meals and snacks 1. Exercise - 30 minutes exercise walking/yardwork, swimming, lifting 2. Vitamin/minerals: Celebrate complete chews (2) per day (includes D and B12) plus (1) 60 mg iron, PLUS (3) Calcium citrate chews 3. Protein: Continue to eat 5 small meals/day (2 Togolese yogurt, 2 ounces meat protein, 2 egg/cheese - minimum 70 grams protein/day 4. Continue to avoid all added sugar in food/snacks/drinks - 64 ounces per day water. Nutrition Monitoring AND Evaluation: BMI < 28 Criteria: weight check Need for Follow up: August 2018 for annual appointment Referred/Supervised by: Mirela GERMAIN Billing Type: Re-assess/15 min 2 units SIGNATURE: Bharti Welsh RD PATIENT NAME: Tasha De DATE: April 06, 2018 TIME: 11:08 AM PAGER: [phone] Primary Visit Diagnosis:Overweight (BMI 25.0-29.9) [E66.3] Other Visit Diagnoses:Dietary counseling and surveillance [Z71.3] Weight gain following gastric bypass surgery [R63.5] During your visit today, we recorded the following information about you: Weight Height 76.2 kg 1.605 m Allergies As of Date: 04/06/2018 Noted Allergy Reaction DOXYCYCLINE HCL 01/24/2008 EFFEXOR (VENLAFAXINE HCL) 04/22/2005 5 - Intolerance Comments: WEIGFHT GAIN HCTZ [Other] 04/22/2005 Comments: LOSS OF K+ QUICKLY LIPITOR (ATORVASTATIN CALCIUM) 02/07/2013 14 - Other: See Comments Comments: myalgia PENICILLINS 04/22/2005 2 - Rash PRAVASTATIN 01/17/2013 14 - Other: See Comments Comments: abdominal pain, muscle crampin SILICONE 10/19/2005 [id number] REDUCTASE INHIBIT*04/18/2017 5 - Intolerance TOPAMAX (TOPIRAMATE) 01/17/2013 7 - Swelling ZOCOR (SIMVASTATIN) 03/27/2013 14 - Other: See Comments Comments: Leg muscle pain ZOLOFT (SERTRALINE HCL) 04/22/2005 5 - Intolerance Comments: ANTHONY Date Reviewed: 04/06/2018 Reviewed by: Bharti Go) Ronny - Fully Assessed Prescriptions as of 04/06/2018 Sig: IV CONTRAST (RADIOLOGY PROCED* MRI Liver Inject, intravenous* OMEPRAZOLE 20 MG CAPSULE,[place]* TAKE 1 CAPSULE TWICE A DAY ON* HYDROXYZINE PAMOATE 25 MG CAP* Take 1 capsule by mouth three* MUPIROCIN 2 % TOPICAL OINTMENT Apply 1 application to affect* ZONISAMIDE 50 MG CAPSULE Take 50 mg by mouth once marta* OXYBUTYNIN CHLORIDE 5 MG TABL* Take 3 tablets by mouth once * CHOLECALCIFEROL (VITAMIN D3) * TAKE 1 CAPSULE ONCE A WEEK VITAMINS PLUS LOW IR* TAKE 1 TABLET DAILY Patient not taking: Reported on 04/06/2018 ERYTHROMYCIN-BENZOYL PEROXIDE* Apply thin layer to entire ac* NYSTATIN (BULK) 1 BILLION UNI* 1 application three times mckenna* RIZATRIPTAN 10 MG TABLET Take 1 tablet by mouth as nee* NYSTATIN 100,000 UNIT/GRAM TO* Apply twice a week to areas p* MONTELUKAST 10 MG TABLET Take 1 tablet by mouth daily * Patient not taking: Reported on 04/06/2018 FEXOFENADINE 60 MG-PSEUDOEPHE* Take 1 tablet by mouth twice * Patient not taking: Reported on 04/06/2018 DITROPAN XL 10 MG TABLET,EXTE* Take 1 tablet by mouth once d* Patient not taking: Reported on 04/06/2018 FESOTERODINE ER 4 MG TABLET,E* Take 1 tablet by mouth once d* Patient not taking: Reported on 04/06/2018 TRIAMCINOLONE ACETONIDE 0.1 %* Apply 1 application to affect* Patient not taking: Reported on 04/06/2018 LEVOTHYROXINE 50 MCG TABLET TAKE 1 TABLET DAILY COMPOUNDED PRESCRIPTION KNEE HIGH COMPRESSION STOCKIN* ASCORBIC ACID (VITAMIN C) 500* Take 500 mg by mouth once mckenna* BUSPIRONE 5 MG TABLET Take 5 mg by mouth twice marta* TIZANIDINE ORAL Take by mouth twice daily as* CALCIUM CITRATE + ORAL Take by mouth. FERROUS SULFATE 325 MG (65 MG* Take 1 tablet by mouth daily * CYMBALTA 60 MG CAPSULE,DELAYE* Take one tab twice a day Letter Text [facility]/M[facility] [id number] [place], [place] [address] April 06, 2018 Tasha De [address] [facility] [address] [facility] Nutrition Intervention 04/06/2018: Modify type and amount of intake at meals and snacks 1. Exercise - 30 minutes exercise walking/yardwork, swimming, lifting 2. Vitamin/minerals: Celebrate complete chews (2) per day (includes D and B12) plus (1) 60 mg iron, PLUS (3) Calcium citrate chews 3. Protein: Continue to eat 5 small meals/day (2 Togolese yogurt, 2 ounces meat protein, 2 egg/cheese - minimum 70 grams protein/day 4. Continue to avoid all added sugar in food/snacks/drinks - 64 ounces per day water. Nutrition Monitoring AND Evaluation: BMI < 28 Criteria: weight check Need for Follow up: August 2018 for annual appointment Bharti Welsh RD Encounter Status:Closed by BHARTI WELSH on 04/06/18 CNOV Observed: 04/06/2018 Status: COMPLETED Source: [place] 10:30 AM [facility] REPOSITORY Office Visit (GENBMI) TASHA DE ([id number]) 1975 F Date Time Provider Department 04/06/18 10:30 AM BELKYS TURNER GENBMI During your visit today, we recorded the following information about you: Pulse Blood pressure Weight Height 75/minute 122/84 76.2 kg 1.605 m Belkys Turner MD 04/09/2018 8:01 PM Signed Name: Tasha De Index Surgery Date of Surgery: 08/15/2013 Surgeon: Jasmine Dash Surgical Procedure: LAPAROSCOPIC GASTRIC RESTRICTIVE SURG W/ BYPASS AND PATEL-EN-Y </= 150CM Pre-surgical weight: 122.9 kg (271 lb) Override Index Surgery Information? No Other Bariatric Surgeries None Visit: 4 years Today's Visit: Wt 76.2 kg (168 lb) BMI 29.57 kg/m2 BMI 29.57 kg/(m2) Last Visit: Wt: 79.4 kg (175 lb) BMI: 30.80 kg/(m2) Total weight loss: 46.7 kg (103 lb) Maud weight: 66.1 kg (145 lb 12 oz) Excess weight: 56.8 kg (125 lb 4 oz) % of excess body weight lost: 46.7 kg (103 lb) (82.24% of excess weight loss) COMPLICATIONS SINCE LAST VISIT?: NONE DIET INTAKE: tolerates Phase V diet -believes she is sometimes getting the recommended amount of protein and fluids -has an appointment coming up to see Water Resources Project Manager DAILY SUPPLEMENTS: Calcium: Calcium Citrate w/ vitamin D (1200 - 1500mg) Multivitamin AND Minerals: Celebrate Iron Supplement: yes Vitamin B12: 500 mcg Vitamin D3: included in multi-vitamin Other: Biotin EXERCISE: walking, mowing the lawn Are you attending any Support Groups? No attendance Current Outpatient Prescriptions: omeprazole (PRILOSEC) 20 mg capsule TAKE 1 CAPSULE TWICE A DAY ON EMPTY STOMACH hydrOXYzine pamoate (VISTARIL) 25 mg capsule Take 1 capsule by mouth three times daily as needed. mupirocin (BACTROBAN) 2 % ointment Apply 1 application to affected area three times daily. zonisamide (ZONEGRAN) 50 mg capsule Take 50 mg by mouth once daily. oxybutynin (DITROPAN) 5 mg tablet Take 3 tablets by mouth once daily. cholecalciferol, Vitamin D3, (VITAMIN D3) 50,000 unit cap capsule TAKE 1 CAPSULE ONCE A WEEK Erythromycin-Benzoyl Peroxide (BENZAMYCIN) gel Apply thin layer to entire acne-prone area(s) of face (optional neck and trunk areas but bewareof bleaching clothing) once to twice per day as directed and tolerated. Nystatin, Bulk, 1 billion unit powd 1 application three times daily as needed. rizatriptan (MAXALT) 10 mg tablet Take 1 tablet by mouth as needed. May repeat in 2 hours if needed nystatin (MYCOSTATIN) ointment Apply twice a week to areas prone to rash. levothyroxine (SYNTHROID) 50 mcg tablet TAKE 1 TABLET DAILY COMPOUNDED PRESCRIPTION KNEE HIGH COMPRESSION STOCKINGS 30- 40 MM. DX: EDEMA ascorbic acid (VITAMIN C) 500 mg tablet Take 500 mg by mouth once daily. TIZANIDINE HCL (TIZANIDINE ORAL) Take by mouth twice daily as needed. CALCIUM CITRATE/VITAMIN D3 (CALCIUM CITRATE + ORAL) Take by mouth. Ferrous Sulfate 325 mg (65 mg iron) tablet Take 1 tablet by mouth daily with breakfast. duloxetine hcl(CYMBALTA 60 MG CAP) Take one tab twice a day VITAMIN PLUS LOW IRON 27 mg iron- 1 mg tab TAKE 1 TABLET DAILY (Patient not taking: Reported on 04/06/2018) montelukast (SINGULAIR) 10 mg tablet Take 1 tablet by mouth daily at bedtime. (Patient not taking: Reported on 04/06/2018 ) fexofenadine-pseudoephedrine (NATALYA D) 60-120 mg per tablet Take 1 tablet by mouth twice daily. (Patient not taking: Reported on 04/06/2018 ) DITROPAN XL 10 mg 24 hr tablet Take 1 tablet by mouth once daily. (Patient not taking: Reported on 04/06/2018 ) fesoterodine (TOVIAZ) 4 mg Tb24 extended release tablet Take 1 tablet by mouth once daily. (Patient not taking: Reported on 04/06/2018 ) triamcinolone acetonide (KENALOG) 0.1 % cream Apply 1 application to affected area three times daily. Apply sparingly to area for rash/itching. (Patient not taking: Reported on 04/06/2018 ) busPIRone (BUSPAR) 5 mg tablet Take 5 mg by mouth twice daily. No current facility-administered medications for this visit. REVIEW OF SYSTEMS: denies nausea, vomiting, dumping syndrome PHYSICAL EXAM: Gen: NAD, AANDOx3, pleasant lady Heent: Throat clear, perrl Heart: RRR Lungs: CTAB Abd: Soft, NT, ND, scars look well-healed Ext: No edema noted A/P: Laparoscopic Patel-en-Y gastric bypass, EGD, and liver biopsy done on: 08/15/[address] Dash 1)status post bariatric surgery. Indicates an eventual, long- term weight loss goal of: 140# Indicates the following as possible challenges to ongoing healthy lifestyle changes: Not sure -lifestyle changes: Cut way back on the pop (almost never drinks it at all) -avoiding cereal/cut back on carbs -physical activity-walking and has an old-fashioned push mower, and a hill in their yard, and she took over that. was in the hospital and speed-walking in the hospital -her weight has dropped from 175 to 168# just with the above changes -for winter weather: Has a membership to the [employer]-so year- round activity is possible. -walking her dog -has stairs in her home -CT abd/pel results discussed with patient. She is now asymptomatic, but will check MRI as recommended by radiology DISPOSITION: Return Other 6 months or sooner prn to EDUCATION: Pt encouraged to continue with positive lifestyle changes and daily/vitamin intake REFERRALS: N/A LABS: Today: as per orders Approximately 08/2018: CBC W DIFF, CMP, Vitamin B12, Iron/ TIBC, Lipid panel, TSH, Folate, 25 Hydroxy and HBA1C Belkys Turner MD (OTHER: -11/29/2017: OV BMI/Johnny. Copied from note: A/P: *41 y/o lady status post: ?Laparoscopic Patel-en-Y gastric bypass, EGD, and liver biopsy done on: 08/15/[address] Dash 1)status post bariatric surgery. Indicates an eventual, long- term weight loss goal of: 140# Indicates the following as possible challenges to ongoing healthy lifestyle changes: Eating habits Discussed various options for weight loss, including dietary, physical activity, pharmacotherapy, and surgery. We discussed that diet and physical activity remain the foundation and mainstay of any weight loss effort, that medications are modestly effective, and indicated only for adjunctive, and often temporary use to supplement lifestyle changes. ? We also discussed various diets, including the PSMF. The patient was counseled on the potential side effects of the diet, including but not limited to possible liver and kidney lab abnormalities, potential for gouty attacks, and possible clinical signs and symptoms including but not limited to fatigue, dizziness, nausea, muscle cramps/myalgias, and palpitations. ? Also advised that this plan most often used temporarily as a jump-start to initiate weight loss, and in conjunction with ongoing physical activity and behavioral changes, prior to transitioning over to a more moderate, higher protein/lower-carb dietary approach. ? Advised to follow up in 4-6 weeks after beginning the diet with provider of choice, to assess for weight loss, side effects and check labs, specifically, cmp and uric acid. ? We also discussed(and/or patient was provided written materials for self-review) the following lifestyle/education information: -provided with handout(s) on various dietary approaches, including conservative to more aggressive -provided with a copy of a BMI chart to monitor weight and BMI -encouraged to look into the use of a pedometer to challenge self on daily activity/daily steps -encouraged to record daily dietary and nutrition intake-provided with information on [employer] website/phone zaina After discussion: She is interested in psmf diet discussed-she will talk it over with Water Resources Project Manager. She believes this will be especially helpful bc it will forcer her to stop carbs/sugar/sweet foods and drinks ?DISPOSITION: Return 3 month to Post-op follow up/ individual office visit EDUCATION: Pt encouraged to continue with positive lifestyle changes and daily/vitamin intake REFERRALS: N/A LABS: Today: none (had labs done previously-these were reviewed) 08/2018: CBC W DIFF, CMP, Vitamin B12, Iron/ TIBC, Lipid panel, TSH, PTH Intact, Folate, 25 Hydroxy and HBA1C ?- April 03, 2018 ADDENDUM: Note, patient has upcoming appointment on 04/06/2018-not sure if discussed her last CT abdomen results with her or not. If not, will check MRI of the abdomen as per radiology recommendation, and consider referral to her Bariatric surgeon/Dr. Dash, based on whether she has ongoing symptoms, or additional findings on the MRI. AG Referring Provider: BELKYS TURNER [[id number]] Allergies As of Date: 04/06/2018 Noted Allergy Reaction DOXYCYCLINE HCL 01/24/2008 EFFEXOR (VENLAFAXINE HCL) 04/22/2005 5 - Intolerance Comments: WEIGFHT GAIN HCTZ [Other] 04/22/2005 Comments: LOSS OF K+ QUICKLY LIPITOR (ATORVASTATIN CALCIUM) 02/07/2013 14 - Other: See Comments Comments: myalgia PENICILLINS 04/22/2005 2 - Rash PRAVASTATIN 01/17/2013 14 - Other: See Comments Comments: abdominal pain, muscle crampin SILICONE 10/19/2005 [id number] REDUCTASE INHIBIT*04/18/2017 5 - Intolerance TOPAMAX (TOPIRAMATE) 01/17/2013 7 - Swelling ZOCOR (SIMVASTATIN) 03/27/2013 14 - Other: See Comments Comments: Leg muscle pain ZOLOFT (SERTRALINE HCL) 04/22/2005 5 - Intolerance Comments: ANTHONY Date Reviewed: 04/06/2018 Reviewed by: Bharti (Jennifer) Ronny - Fully Assessed Reason for Visit: Established Patient [175] Primary Visit Diagnosis:Liver lesion [K76.9] Other Visit Diagnoses: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 No IV access, insert saline lock prior to the beginning of sedation, infusion, injection of imaging exam. Discontinue saline lock post exam. If Pt. has a central line or IVAD, may access for administration according to line specific nursing protocol. Once exam is complete flush line and de-access according to line specific nursing protocol in the MR contrast administration guidelines link.Disp: 1 EachRfl: 0 Prescriptions as of 04/06/2018 Sig: OMEPRAZOLE 20 MG CAPSULE,[place]* TAKE 1 CAPSULE TWICE A DAY ON* HYDROXYZINE PAMOATE 25 MG CAP* Take 1 capsule by mouth three* MUPIROCIN 2 % TOPICAL OINTMENT Apply 1 application to affect* ZONISAMIDE 50 MG CAPSULE Take 50 mg by mouth once marta* OXYBUTYNIN CHLORIDE 5 MG TABL* Take 3 tablets by mouth once * CHOLECALCIFEROL (VITAMIN D3) * TAKE 1 CAPSULE ONCE A WEEK ERYTHROMYCIN-BENZOYL PEROXIDE* Apply thin layer to entire ac* NYSTATIN (BULK) 1 BILLION UNI* 1 application three times mckenna* RIZATRIPTAN 10 MG TABLET Take 1 tablet by mouth as nee* NYSTATIN 100,000 UNIT/GRAM TO* Apply twice a week to areas p* LEVOTHYROXINE 50 MCG TABLET TAKE 1 TABLET DAILY COMPOUNDED PRESCRIPTION KNEE HIGH COMPRESSION STOCKIN* ASCORBIC ACID (VITAMIN C) 500* Take 500 mg by mouth once mckenna* TIZANIDINE ORAL Take by mouth twice daily as* CALCIUM CITRATE + ORAL Take by mouth. FERROUS SULFATE 325 MG (65 MG* Take 1 tablet by mouth daily * CYMBALTA 60 MG CAPSULE,DELAYE* Take one tab twice a day IV CONTRAST (RADIOLOGY PROCED* MRI Liver Inject, intravenous* VITAMINS PLUS LOW IR* TAKE 1 TABLET DAILY Patient not taking: Reported on 04/06/2018 MONTELUKAST 10 MG TABLET Take 1 tablet by mouth daily * Patient not taking: Reported on 04/06/2018 FEXOFENADINE 60 MG-PSEUDOEPHE* Take 1 tablet by mouth twice * Patient not taking: Reported on 04/06/2018 DITROPAN XL 10 MG TABLET,EXTE* Take 1 tablet by mouth once d* Patient not taking: Reported on 04/06/2018 FESOTERODINE ER 4 MG TABLET,E* Take 1 tablet by mouth once d* Patient not taking: Reported on 04/06/2018 TRIAMCINOLONE ACETONIDE 0.1 %* Apply 1 application to affect* Patient not taking: Reported on 04/06/2018 BUSPIRONE 5 MG TABLET Take 5 mg by mouth twice marta* Problem List As Of Date 04/06/2018 Noted Resolved BENIGN HYPERTENSION [I10] INVALID FOR* IRRITABLE COLON [K58.9] INVALID FOR* ESOPHAGEAL REFLUX [K21.9] INVALID FOR* Lumbago [M54.5] INVALID FOR*04/18/2017 ALLERGIC RHINITIS NOS [J30.9] INVALID FOR* Dysmetabolic syndrome X [E88.81] INVALID FOR*12/03/2013 Rosacea [L71.9] INVALID FOR*04/24/2010 Scanty or infrequent menstruation [N91.5] INVALID FOR*12/03/2013 Candidiasis of skin and nails [B37.2] INVALID FOR*04/18/2017 Postphlebetic syndrome with other complication *INVALID FOR*04/18/2017 Unspecified sleep apnea [G47.30] INVALID FOR*12/03/2013 More... Morbid obesity [E66.01] INVALID FOR*12/03/2013 Other and unspecified hyperlipidemia [E78.5] INVALID FOR* More... 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] INVALID FOR*04/18/2017 Melanocytic Nevus of Trunk: Back [D22.5] INVALID FOR*04/18/2017 Skin tag(s) INVALID FOR*04/18/2017 Viral warts, unspecified [B07.9] INVALID FOR*04/18/2017 Obesity [E66.9] INVALID FOR* Tinea corporis [B35.4] INVALID FOR*04/18/2017 Xerosis cutis [L85.3] INVALID FOR*04/18/2017 Surgical Scar: skin of upper lip [L90.5] INVALID FOR*04/18/2017 Restless legs syndrome [G25.81] INVALID FOR* Vitamin D deficiency [E55.9] INVALID FOR* SAMARIA (obstructive sleep apnea) [G47.33] INVALID FOR*12/03/2013 Hyperpigmentation of skin: under eyelids [L81.9]INVALID FOR*04/18/2017 Irregular menstrual cycle [N92.6] INVALID FOR*12/03/2013 Abdominal pain, left lower quadrant [R10.32] INVALID FOR*12/03/2013 Dysmenorrhea [N94.6] INVALID FOR* Type II or unspecified type diabetes mellitus w*INVALID FOR*12/15/2012 Pain in lower limb [M79.606] INVALID FOR*12/03/2013 Neuralgia, neuritis, and radiculitis, unspecifi*INVALID FOR* Type II or unspecified type diabetes mellitus w*INVALID FOR*12/03/2013 Encounter for dietary counseling and surveillan*INVALID FOR*04/18/2017 History of gastric bypass [Z98.84] INVALID FOR*04/18/2017 Depression [F32.9] INVALID FOR* History of irregular menstrual bleeding [Z87.42]INVALID FOR*04/18/2017 Acne vulgaris: inflammatory grade III (chin and*INVALID FOR*04/18/2017 Dermatofibroma [D23.9] INVALID FOR*04/18/2017 Melanocytic nevi of trunk [D22.5] INVALID FOR*04/18/2017 Sebaceous hyperplasia [L73.8] INVALID FOR*04/18/2017 Milial cyst [L72.0] INVALID FOR*04/18/2017 Migraine headache [G43.909] INVALID FOR* CRPS (complex regional pain syndrome) (HCC) [IM*INVALID FOR* 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 [D*INVALID FOR*04/18/2017 Atypical nevus of flank [D22.5] INVALID FOR*04/18/2017 Medication overuse headache [G44.40] INVALID FOR*04/18/2017 Migraine without aura [G43.009] INVALID FOR* Overactive bladder [N32.81] INVALID FOR* Acquired hypothyroidism [E03.9] INVALID FOR* Hypoproteinemia (HCC) [E77.8] INVALID FOR*09/09/2016 Hyponatremia [E87.1] INVALID FOR*09/09/2016 Strain of right knee and leg [S86.911A] INVALID FOR*04/18/2017 Prescriptions ordered this encounter Disp Refills Start End IV CONTRAST (RADIOLOGY PROCEDURE) 1 Ea* 0 04/06/2018 04/07/2018 Class: In Office Sig: MRI Liver Inject, intravenously, once for 1 dose. No IV access, insert saline lock prior to the beginning of sedation, infusion, injection of imaging exam. Discontinue saline lock post exam. If Pt. has a central line or IVAD, may access for administration according to line specific nursing protocol. Once exam is complete flush line and de-access according to line specific nursing protocol in the MR contrast administration guidelines link. Disposition: Return in about 6 months (around 10/07/2018). Follow-up and Disposition History Recorded Encounter Status:Closed by BELKYS TURNER MD on 04/09/18 PROGRESS Observed: 04/06/2018 Status: COMPLETED Source: [place] 10:24 AM [facility] REPOSITORY O ID: [id number] Author: Belkys Turner Service: (none) Author Type: Physician Type: Progress Notes Filed: 04/09/2018 8:01 PM Note Text: Name: Tasha De Index Surgery Date of Surgery: 08/15/2013 Surgeon: Jasmine Dash Surgical Procedure: LAPAROSCOPIC GASTRIC RESTRICTIVE SURG W/ BYPASS AND PATEL-EN-Y </= 150CM Pre-surgical weight: 122.9 kg (271 lb) Override Index Surgery Information? No Other Bariatric Surgeries None Visit: 4 years Today's Visit: Wt 76.2 kg (168 lb) BMI 29.57 kg/m2 BMI 29.57 kg/(m2) Last Visit: Wt: 79.4 kg (175 lb) BMI: 30.80 kg/(m2) Total weight loss: 46.7 kg (103 lb) Maud weight: 66.1 kg (145 lb 12 oz) Excess weight: 56.8 kg (125 lb 4 oz) % of excess body weight lost: 46.7 kg (103 lb) (82.24% of excess weight loss) COMPLICATIONS SINCE LAST VISIT?: NONE DIET INTAKE: tolerates Phase V diet -believes she is sometimes getting the recommended amount of protein and fluids -has an appointment coming up to see Water Resources Project Manager DAILY SUPPLEMENTS: Calcium: Calcium Citrate w/ vitamin D (1200 - 1500mg) Multivitamin AND Minerals: Celebrate Iron Supplement: yes Vitamin B12: 500 mcg Vitamin D3: included in multi-vitamin Other: Biotin EXERCISE: walking, mowing the lawn Are you attending any Support Groups? No attendance Current Outpatient Prescriptions: omeprazole (PRILOSEC) 20 mg capsule TAKE 1 CAPSULE TWICE A DAY ON EMPTY STOMACH hydrOXYzine pamoate (VISTARIL) 25 mg capsule Take 1 capsule by mouth three times daily as needed. mupirocin (BACTROBAN) 2 % ointment Apply 1 application to affected area three times daily. zonisamide (ZONEGRAN) 50 mg capsule Take 50 mg by mouth once daily. oxybutynin (DITROPAN) 5 mg tablet Take 3 tablets by mouth once daily. cholecalciferol, Vitamin D3, (VITAMIN D3) 50,000 unit cap capsule TAKE 1 CAPSULE ONCE A WEEK Erythromycin-Benzoyl Peroxide (BENZAMYCIN) gel Apply thin layer to entire acne-prone area(s) of face (optional neck and trunk areas but bewareof bleaching clothing) once to twice per day as directed and tolerated. Nystatin, Bulk, 1 billion unit powd 1 application three times daily as needed. rizatriptan (MAXALT) 10 mg tablet Take 1 tablet by mouth as needed. May repeat in 2 hours if needed nystatin (MYCOSTATIN) ointment Apply twice a week to areas prone to rash. levothyroxine (SYNTHROID) 50 mcg tablet TAKE 1 TABLET DAILY COMPOUNDED PRESCRIPTION KNEE HIGH COMPRESSION STOCKINGS 30- 40 MM. DX: EDEMA ascorbic acid (VITAMIN C) 500 mg tablet Take 500 mg by mouth once daily. TIZANIDINE HCL (TIZANIDINE ORAL) Take by mouth twice daily as needed. CALCIUM CITRATE/VITAMIN D3 (CALCIUM CITRATE + ORAL) Take by mouth. Ferrous Sulfate 325 mg (65 mg iron) tablet Take 1 tablet by mouth daily with breakfast. duloxetine hcl(CYMBALTA 60 MG CAP) Take one tab twice a day VITAMIN PLUS LOW IRON 27 mg iron- 1 mg tab TAKE 1 TABLET DAILY (Patient not taking: Reported on 04/06/2018) montelukast (SINGULAIR) 10 mg tablet Take 1 tablet by mouth daily at bedtime. (Patient not taking: Reported on 04/06/2018 ) fexofenadine-pseudoephedrine (NATALYA D) 60-120 mg per tablet Take 1 tablet by mouth twice daily. (Patient not taking: Reported on 04/06/2018 ) DITROPAN XL 10 mg 24 hr tablet Take 1 tablet by mouth once daily. (Patient not taking: Reported on 04/06/2018 ) fesoterodine (TOVIAZ) 4 mg Tb24 extended release tablet Take 1 tablet by mouth once daily. (Patient not taking: Reported on 04/06/2018 ) triamcinolone acetonide (KENALOG) 0.1 % cream Apply 1 application to affected area three times daily. Apply sparingly to area for rash/itching. (Patient not taking: Reported on 04/06/2018 ) busPIRone (BUSPAR) 5 mg tablet Take 5 mg by mouth twice daily. No current facility-administered medications for this visit. REVIEW OF SYSTEMS: denies nausea, vomiting, dumping syndrome PHYSICAL EXAM: Gen: NAD, AANDOx3, pleasant lady Heent: Throat clear, perrl Heart: RRR Lungs: CTAB Abd: Soft, NT, ND, scars look well-healed Ext: No edema noted A/P: Laparoscopic Patel-en-Y gastric bypass, EGD, and liver biopsy done on: 08/15/[address] Dash 1)status post bariatric surgery. Indicates an eventual, long- term weight loss goal of: 140# Indicates the following as possible challenges to ongoing healthy lifestyle changes: Not sure -lifestyle changes: Cut way back on the pop (almost never drinks it at all) -avoiding cereal/cut back on carbs -physical activity-walking and has an old-fashioned push mower, and a hill in their yard, and she took over that. was in the hospital and speed-walking in the hospital -her weight has dropped from 175 to 168# just with the above changes -for winter weather: Has a membership to the [employer]-so year- round activity is possible. -walking her dog -has stairs in her home -CT abd/pel results discussed with patient. She is now asymptomatic, but will check MRI as recommended by radiology DISPOSITION: Return Other 6 months or sooner prn to EDUCATION: Pt encouraged to continue with positive lifestyle changes and daily/vitamin intake REFERRALS: N/A LABS: Today: as per orders Approximately 08/2018: CBC W DIFF, CMP, Vitamin B12, Iron/ TIBC, Lipid panel, TSH, Folate, 25 Hydroxy and HBA1C Belkys Turner MD (OTHER: -11/29/2017: OV BMI/Shaunaty. Copied from note: A/P: *41 y/o lady status post: ?Laparoscopic Patel-en-Y gastric bypass, EGD, and liver biopsy done on: 08/15/[address] Dash 1)status post bariatric surgery. Indicates an eventual, long- term weight loss goal of: 140# Indicates the following as possible challenges to ongoing healthy lifestyle changes: Eating habits Discussed various options for weight loss, including dietary, physical activity, pharmacotherapy, and surgery. We discussed that diet and physical activity remain the foundation and mainstay of any weight loss effort, that medications are modestly effective, and indicated only for adjunctive, and often temporary use to supplement lifestyle changes. ? We also discussed various diets, including the PSMF. The patient was counseled on the potential side effects of the diet, including but not limited to possible liver and kidney lab abnormalities, potential for gouty attacks, and possible clinical signs and symptoms including but not limited to fatigue, dizziness, nausea, muscle cramps/myalgias, and palpitations. ? Also advised that this plan most often used temporarily as a jump-start to initiate weight loss, and in conjunction with ongoing physical activity and behavioral changes, prior to transitioning over to a more moderate, higher protein/lower-carb dietary approach. ? Advised to follow up in 4-6 weeks after beginning the diet with provider of choice, to assess for weight loss, side effects and check labs, specifically, cmp and uric acid. ? We also discussed(and/or patient was provided written materials for self-review) the following lifestyle/education information: -provided with handout(s) on various dietary approaches, including conservative to more aggressive -provided with a copy of a BMI chart to monitor weight and BMI -encouraged to look into the use of a pedometer to challenge self on daily activity/daily steps -encouraged to record daily dietary and nutrition intake-provided with information on [employer] website/phone [email or web address] After discussion: She is interested in psmf diet discussed-she will talk it over with Water Resources Project Manager. She believes this will be especially helpful bc it will forcer her to stop carbs/sugar/sweet foods and drinks ?DISPOSITION: Return 3 month to Post-op follow up/ individual office visit EDUCATION: Pt encouraged to continue with positive lifestyle changes and daily/vitamin intake REFERRALS: N/A LABS: Today: none (had labs done previously-these were reviewed) 08/2018: CBC W DIFF, CMP, Vitamin B12, Iron/ TIBC, Lipid panel, TSH, PTH Intact, Folate, 25 Hydroxy and HBA1C ?- April 03, 2018 ADDENDUM: Note, patient has upcoming appointment on 04/06/2018-not sure if discussed her last CT abdomen results with her or not. If not, will check MRI of the abdomen as per radiology recommendation, and consider referral to her Bariatric surgeon/Dr. Dash, based on whether she has ongoing symptoms, or additional findings on the MRI. AG Observed: 03/24/2018 Status: F Source: [place] CULTURE, WOUND 12:00 AM [facility] REPOSITORY Comments: LEFT BUTTOCK ABSCESS Gram Stain Gram Stain No White Blood Cells No organisms seen Wound Culture No growth aerobically. Performed By: #### [id number] #### [facility] [address] [place], [place], [address] CBC Collected: 02/10/2018 Status: F Source: [place] 9:18 AM [facility] REPOSITORY TYPE CODE TESTS RESULT OUT OF REFERENCE UNITS RANGE LAB WBC 3.70-11.00 k/uL WBC 7.90 LAB RBC 3.90-5.20 m/uL RBC 4.52 LAB HGB 11.5-15.5 g/dL Hemoglobin 14.2 LAB HCT 36.0-46.0 % Hematocrit 43.6 LAB MCV 80.0-100.0 fL MCV 96.5 LAB MCH 26.0-34.0 pG MCH 31.4 LAB MCHC 30.5-36.0 g/dL MCHC 32.6 LAB RDWCV 11.5-15.0 % RDW-CV 12.8 LAB PLTCT 150-400 k/uL Platelet Count 265 LAB MPV 9.0-12.7 fL MPV 10.5 LAB ABSNUC <0.01 k/uL Absolute nRBC <0.01 Performed By: #### CBC, PTT, HFP, TSH, VITD #### [facility] [address] [place], [place] [address] APTT Collected: 02/10/2018 Status: F Source: [place] 9:18 AM [facility] REPOSITORY TYPE CODE TESTS RESULT OUT OF RANGE REFERENCE UNITS LAB APTT 23.0-32.4 sec APTT 27.9 Result Comment: Unfractionated Heparin Therapeutic Ranges: Standard Heparin Nomogram: 53 to 78 seconds (anti-Xa level of 0.3 to 0.7 U/ml) Low Dose/ACS Nomogram: 49 to 67 seconds (anti-Xa level of 0.2 to 0.5 U/ml) Stroke Treatment Nomogram: 49 to 67 seconds (anti-Xa level of 0.2 to 0.5 U/ml) Note: The APTT therapeutic range has been determined for the current lot of laboratory APTT reagent in use throughout the [facility]. Performed By: #### CBC, PTT, HFP, TSH, VITD #### [facility] [address] [place], [place] [address] HEPATIC FUNCTN PANEL Collected: 02/10/2018 Status: F Source: [place] 9:18 AM [facility] REPOSITORY TYPE CODE TESTS RESULT OUT OF REFERENCE UNITS RANGE LAB ALB 3.9-4.9 g/dL Albumin 4.2 LAB TBIL 0.2-1.3 mg/dL Bilirubin, Total 0.3 LAB CBIL <0.2 mg/dL Bilirubin,Conjuga <0.2 nicolas LAB ALKP 32-117 U/L Alkaline Phosphatase 69 LAB AST 13-35 U/L AST 21 LAB ALT 7-38 U/L ALT 16 LAB TP 6.3-8.0 g/dL Protein, Total 7.2 Performed By: #### CBC, PTT, HFP, TSH, VITD #### [facility] [address], [place] [address] TSH Collected: 02/10/2018 Status: F Source: [place] 9:18 AM [facility] REPOSITORY TYPE CODE TESTS RESULT OUT OF RANGE REFERENCE UNITS LAB TSH 0.400-5.500 uU/mL TSH 3.140 Result Comment: If the patient is , TSH reference range varies by gestational period: First Trimester 0.100-2.500 uU/mL Second Trimester 0.200-3.000 uU/mL Third Trimester 0.300-3.000 uU/mL References: 1. Fonseca, Liset M, Randal ESPOSITO, et al. Management of Thyroid Dysfunction during and : An Endocrine Society Clinical Practice Guideline. J Clin Endocrinol Metab, 2012:97:7047-2999. 2. Vinod BL[place]. Overview of thyroid disease in . UpToDate. 2016. Accessed on February 27, 2016. Performed By: #### CBC, PTT, HFP, TSH, VITD #### [facility] [address] [place], [place] [address] VITAMIN D 25 HYDROXY Collected: 02/10/2018 Status: F Source: [place] 9:18 AM [facility] REPOSITORY TYPE CODE TESTS RESULT OUT OF REFERENCE UNITS RANGE LAB VITD 31.0-80.0 ng/mL Vitamin D 25 60.4 Hydroxy Result Comment: Classification of 25 [place] Vitamin D status: Insufficiency/Moderate Deficiency: < or = 30 ng/mL Sufficiency/Optimal Levels: 31 to 80 ng/mL Toxicity: > 100 ng/mL Test performed by chemiluminescent immunoassay. Performed By: #### CBC, PTT, HFP, TSH, VITD #### [facility] [address] [place], [place] [address] PROGRESS Observed: 02/10/2018 Status: COMPLETED Source: [place] 8:54 AM [facility] REPOSITORY HNO ID: [id number] Author: Dao Gan (Prince) Ovidio Service: (none) Author Type: Nurse Practitioner Type: Progress Notes Filed: 02/10/2018 10:27 AM Note Text: Chief Complaint Patient presents with: Rash: on buttocks brusing: all over HPI Tasha De is a 42 year old female who presents here today for Above Complaints. Rash: seen 01/19/18, prescribed Mupirocin Ointment. Has not noted any improvement. Area on right buttock, pantyline. Sometimes itchy, sometimes feels irritated. No drainage, not gotten any bigger. Bruising: has noticed more bruising to legs, abdomen and arms over the past month. States had small bottle bodywash fall in shower and hit her wrist and gotten a bruise. No new activities out of her usual routine. No new medications except Zonegran was started November and has titrated up to 300 mg now. She also notes new company for her multivitamin. Denies any recent illness, no rash, fever, chills, or abdominal pain. The ROS is otherwise negative. Past medical history, appointments, medications, allergies reviewed. Patient Allergies ALLERGIES Allergen Reactions - Doxycycline Hcl - Effexor [Venlafaxin* Intolerance WEIGFHT GAIN - Hctz [Other] LOSS OF K+ QUICKLY - Lipitor [Atorvastat* Other: See Comments myalgia - Penicillins Rash - Pravastatin Other: See Comments abdominal pain, muscle crampin - Silicone - Hjntaby-Cod-Lsa Red* Intolerance - Topamax [Topiramate] Swelling - Zocor [Simvastatin] Other: See Comments Leg muscle pain - Zoloft [Sertraline * Intolerance FATIQUE Current Medications Current Outpatient Prescriptions on File Prior to Visit: mupirocin (BACTROBAN) 2 % ointment Apply 1 application to affected area three times daily. omeprazole (PRILOSEC) 20 mg capsule TAKE 1 CAPSULE TWICE A DAY ON EMPTY STOMACH zonisamide (ZONEGRAN) 50 mg capsule Take 50 mg by mouth once daily. oxybutynin (DITROPAN) 5 mg tablet Take 3 tablets by mouth once daily. cholecalciferol, Vitamin D3, (VITAMIN D3) 50,000 unit cap capsule TAKE 1 CAPSULE ONCE A WEEK Erythromycin-Benzoyl Peroxide (BENZAMYCIN) gel Apply thin layer to entire acne-prone area(s) of face (optional neck and trunk areas but bewareof bleaching clothing) once to twice per day as directed and tolerated. Nystatin, Bulk, 1 billion unit powd 1 application three times daily as needed. rizatriptan (MAXALT) 10 mg tablet Take 1 tablet by mouth as needed. May repeat in 2 hours if needed nystatin (MYCOSTATIN) ointment Apply twice a week to areas prone to rash. hydrOXYzine pamoate (VISTARIL) 25 mg capsule Take 1 capsule by mouth three times daily as needed. DITROPAN XL 10 mg 24 hr tablet Take 1 tablet by mouth once daily. levothyroxine (SYNTHROID) 50 mcg tablet TAKE 1 TABLET DAILY COMPOUNDED PRESCRIPTION KNEE HIGH COMPRESSION STOCKINGS 30- 40 MM. DX: EDEMA ascorbic acid (VITAMIN C) 500 mg tablet Take 500 mg by mouth once daily. busPIRone (BUSPAR) 5 mg tablet Take 5 mg by mouth twice daily. TIZANIDINE HCL (TIZANIDINE ORAL) Take by mouth twice daily as needed. CALCIUM CITRATE/VITAMIN D3 (CALCIUM CITRATE + ORAL) Take by mouth. Ferrous Sulfate 325 mg (65 mg iron) tablet Take 1 tablet by mouth daily with breakfast. duloxetine hcl(CYMBALTA 60 MG CAP) Take one tab twice a day VITAMIN PLUS LOW IRON 27 mg iron- 1 mg tab TAKE 1 TABLET DAILY montelukast (SINGULAIR) 10 mg tablet Take 1 tablet by mouth daily at bedtime. fexofenadine-pseudoephedrine (NATALYA D) 60-120 mg per tablet Take 1 tablet by mouth twice daily. fesoterodine (TOVIAZ) 4 mg Tb24 extended release tablet Take 1 tablet by mouth once daily. triamcinolone acetonide (KENALOG) 0.1 % cream Apply 1 application to affected area three times daily. Apply sparingly to area for rash/itching. No current facility-administered medications on file prior to visit. Previous Medical History PAST MEDICAL HISTORY Diagnosis Date - Acne vulgaris: inflammatory grade III (chin and jawline face) 03/07/2014 - Actinic Damage//Sun-Damaged Skin 04/24/2010 - Atypical nevus of flank 05/03/2014 - Benign hypertensive heart disease without heart failure - Candidiasis of skin and nails 12/15/2007 - Congenital pigmented melanocytic nevus 04/24/2010 - Degeneration of lumbar or lumbosacral intervertebral disc 04/09/2008 - Dermatofibroma 03/07/2014 - DVT (deep venous thrombosis) (HCC) after foot surgery 2000 - Dysthymic disorder Depression (non-psychotic)-POST DEPRESSION 1997 - Edema 02/10/2010 - Embolism and thrombosis of unspecified site 2000 LT LEG - Encounter for dietary counseling and surveillance 04/10/2013 - Esophagitis, unspecified - Generalized anxiety disorder 1998 Anxiety, Generalized - History of gastric bypass 08/15/13 - History of gastric bypass 09/17/2013 - History of irregular menstrual bleeding 12/03/2013 - Hyperlipidemia LDL goal < 100 12/19/2012 Resolved since gastric bypass - Hyperpigmentation of skin: under eyelids 02/22/2012 - Hypertension - Hypothyroid 09/19/2012 - Irritable bowel syndrome 1996 - Lumbago - Medication overuse headache 08/22/2014 - Melanocytic nevi of trunk 03/07/2014 - Melanocytic Nevus of Trunk: Back 04/24/2010 - Milial cyst 03/07/2014 - 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 05/03/2014 - Obesity, unspecified - Overactive bladder 10/02/2014 - Porokeratosis 04/24/2010 - Postphlebetic syndrome with other complication 12/28/2007 - Reflex sympathetic dystrophy of the lower limb 1999 LT. LEG3 - Rosacea 04/24/2010 - Sebaceous hyperplasia 03/07/2014 - Skin tag(s) 04/24/2010 - Solar Lentigines 04/24/2010 - Strain of right knee and leg 05/18/2016 - Surgical Scar: skin of upper lip 10/14/2010 - Tarsal tunnel syndrome left - Telangiectasias 04/24/2010 - Tibial tendonitis, posterior, left - Tinea corporis 08/25/2010 - Type II or unspecified type diabetes mellitus without mention of complication, not stated as uncontrolled 09/18/2012 RESOLVED 09/2013 AFTER GASTRIC BYPASS - Unspecified sleep apnea 2003 Sleep apnea - Viral warts, unspecified 04/24/2010 - Xerosis cutis 08/25/2010 Previous Surgical History PAST SURGICAL HISTORY Procedure Laterality Date - EGD W/O OR W/BRUSH/WASH 05/17/2007 EGD - ESSURE [address] [place] [address] and HSG showed no open tubes - GASTRIC BYPASS HX 08/15/13 - HYSTERECTOMY 05/26/2017 [facility] - MIDLINE INSERTION/CONSULT 08/15/2013 - PAST SURGICAL HISTORY OF 2000 foot surgery - REMOVAL GALLBLADDER 2002 laparoscopic Family History FAMILY HISTORY Problem Relation Age of Onset - Psychiatry Father MANIC DEPRESSIVE SCHIZOPHRIENA - Heart Mother ASHD - Hypertension Mother - Hypertension Brother - Cancer Maternal Grandmother 2 TYPES - Diabetes Maternal Grandfather - Coronary Artery Disease Father - schizophrenia [Other] [OTHER] Brother Social History Social History Marital status: Legally Spouse name: FARZAD LEMUS Years of education: 12 Number of children: 2 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 General Appearance: Well appearing, alert, in no acute distress, well-hydrated, well nourished.. Skin: Small, aging bruises noted over limbs and torso: Left leg=5, Right leg=1, abdomen=3 and right wrist=1. No bruising on backside of legs and torso. Skin lesion: right buttock at leg pantyline: quarter size, well demarcated, mildly elevated, erythematous patch, noted peeling skin over central portion. No open area. Small firm beebee size, mobile and well delineated area underneath, consistent with sebaceous cyst Neck: Supple, no adenopathy; thyroid symmetric, normal size, no bruits. Lungs: Lungs clear to auscultation. No wheezing, rhonchi, rales. Heart: RRR without murmur, gallop, or rubs. No ectopy. ASSESSMENT/PLAN: 1. Bruising - ICD9: 924.9, ICD10: T14.8XXA (primary diagnosis) - Will check labs today, reassurance provided, no concerning symptoms and normal CBC 2 months ago with normal platelets. - CBC - ACTIVATED PTT - HEPATIC FUNCTION PNL 2. Acquired hypothyroidism - ICD9: 244.9, ICD10: E03.9 - check TSH today - TSH BLD 3. Sebaceous cyst - ICD9: 706.2, ICD10: L72.3 - Warned against squeezing or popping area. Feel it may have been secondarily infected or irritated at one time. Expect gradual resolution, no intervention needed at this time. Signs and sx of infection reviewed, red flags and action plan discussed. Dao Nolan, MSN WOOD GRINDER OPERATOR.ROLL WEIGHER CNOV Observed: 02/10/2018 Status: COMPLETED Source: [place] 8:40 AM [facility] REPOSITORY Office Visit (FAMPWS) TASHA DE ([id number]) 1975 F Date Time Provider Department 02/10/18 8:40 AM DAO NOLAN (GOLD BEATER) FAMPWS During your visit today, we recorded the following information about you: Temperature Pulse Blood pressure Weight 97.5 degrees 72/minute 100/76 79.4 kg Dao Nolan, MSN WOOD GRINDER OPERATOR.ROLL WEIGHER 02/10/2018 10:27 AM Signed Chief Complaint Patient presents with: Rash: on buttocks brusing: all over HPI Tasha De is a 42 year old female who presents here today for Above Complaints. Rash: seen 01/19/18, prescribed Mupirocin Ointment. Has not noted any improvement. Area on right buttock, pantyline. Sometimes itchy, sometimes feels irritated. No drainage, not gotten any bigger. Bruising: has noticed more bruising to legs, abdomen and arms over the past month. States had small bottle bodywash fall in shower and hit her wrist and gotten a bruise. No new activities out of her usual routine. No new medications except Zonegran was started November and has titrated up to 300 mg now. She also notes new company for her multivitamin. Denies any recent illness, no rash, fever, chills, or abdominal pain. The ROS is otherwise negative. Past medical history, appointments, medications, allergies reviewed. Patient Allergies ALLERGIES Allergen Reactions - Doxycycline Hcl - Effexor [Venlafaxin* Intolerance WEIGFHT GAIN - Hctz [Other] LOSS OF K+ QUICKLY - Lipitor [Atorvastat* Other: See Comments myalgia - Penicillins Rash - Pravastatin Other: See Comments abdominal pain, muscle crampin - Silicone - Wwusiov-Xez-Dzg Red* Intolerance - Topamax [Topiramate] Swelling - Zocor [Simvastatin] Other: See Comments Leg muscle pain - Zoloft [Sertraline * Intolerance FATIQUE Current Medications Current Outpatient Prescriptions on File Prior to Visit: mupirocin (BACTROBAN) 2 % ointment Apply 1 application to affected area three times daily. omeprazole (PRILOSEC) 20 mg capsule TAKE 1 CAPSULE TWICE A DAY ON EMPTY STOMACH zonisamide (ZONEGRAN) 50 mg capsule Take 50 mg by mouth once daily. oxybutynin (DITROPAN) 5 mg tablet Take 3 tablets by mouth once daily. cholecalciferol, Vitamin D3, (VITAMIN D3) 50,000 unit cap capsule TAKE 1 CAPSULE ONCE A WEEK Erythromycin-Benzoyl Peroxide (BENZAMYCIN) gel Apply thin layer to entire acne-prone area(s) of face (optional neck and trunk areas but bewareof bleaching clothing) once to twice per day as directed and tolerated. Nystatin, Bulk, 1 billion unit powd 1 application three times daily as needed. rizatriptan (MAXALT) 10 mg tablet Take 1 tablet by mouth as needed. May repeat in 2 hours if needed nystatin (MYCOSTATIN) ointment Apply twice a week to areas prone to rash. hydrOXYzine pamoate (VISTARIL) 25 mg capsule Take 1 capsule by mouth three times daily as needed. DITROPAN XL 10 mg 24 hr tablet Take 1 tablet by mouth once daily. levothyroxine (SYNTHROID) 50 mcg tablet TAKE 1 TABLET DAILY COMPOUNDED PRESCRIPTION KNEE HIGH COMPRESSION STOCKINGS 30- 40 MM. DX: EDEMA ascorbic acid (VITAMIN C) 500 mg tablet Take 500 mg by mouth once daily. busPIRone (BUSPAR) 5 mg tablet Take 5 mg by mouth twice daily. TIZANIDINE HCL (TIZANIDINE ORAL) Take by mouth twice daily as needed. CALCIUM CITRATE/VITAMIN D3 (CALCIUM CITRATE + ORAL) Take by mouth. Ferrous Sulfate 325 mg (65 mg iron) tablet Take 1 tablet by mouth daily with breakfast. duloxetine hcl(CYMBALTA 60 MG CAP) Take one tab twice a day VITAMIN PLUS LOW IRON 27 mg iron- 1 mg tab TAKE 1 TABLET DAILY montelukast (SINGULAIR) 10 mg tablet Take 1 tablet by mouth daily at bedtime. fexofenadine-pseudoephedrine (NATALYA D) 60-120 mg per tablet Take 1 tablet by mouth twice daily. fesoterodine (TOVIAZ) 4 mg Tb24 extended release tablet Take 1 tablet by mouth once daily. triamcinolone acetonide (KENALOG) 0.1 % cream Apply 1 application to affected area three times daily. Apply sparingly to area for rash/itching. No current facility-administered medications on file prior to visit. Previous Medical History PAST MEDICAL HISTORY Diagnosis Date - Acne vulgaris: inflammatory grade III (chin and jawline face) 03/07/2014 - Actinic Damage//Sun-Damaged Skin 04/24/2010 - Atypical nevus of flank 05/03/2014 - Benign hypertensive heart disease without heart failure - Candidiasis of skin and nails 12/15/2007 - Congenital pigmented melanocytic nevus 04/24/2010 - Degeneration of lumbar or lumbosacral intervertebral disc 04/09/2008 - Dermatofibroma 03/07/2014 - DVT (deep venous thrombosis) (HCC) after foot surgery 2000 - Dysthymic disorder Depression (non-psychotic)-POST DEPRESSION 1997 - Edema 02/10/2010 - Embolism and thrombosis of unspecified site 2000 LT LEG - Encounter for dietary counseling and surveillance 04/10/2013 - Esophagitis, unspecified - Generalized anxiety disorder 1998 Anxiety, Generalized - History of gastric bypass 08/15/13 - History of gastric bypass 09/17/2013 - History of irregular menstrual bleeding 12/03/2013 - Hyperlipidemia LDL goal < 100 12/19/2012 Resolved since gastric bypass - Hyperpigmentation of skin: under eyelids 02/22/2012 - Hypertension - Hypothyroid 09/19/2012 - Irritable bowel syndrome 1996 - Lumbago - Medication overuse headache 08/22/2014 - Melanocytic nevi of trunk 03/07/2014 - Melanocytic Nevus of Trunk: Back 04/24/2010 - Milial cyst 03/07/2014 - 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 05/03/2014 - Obesity, unspecified - Overactive bladder 10/02/2014 - Porokeratosis 04/24/2010 - Postphlebetic syndrome with other complication 12/28/2007 - Reflex sympathetic dystrophy of the lower limb 1999 LT. LEG3 - Rosacea 04/24/2010 - Sebaceous hyperplasia 03/07/2014 - Skin tag(s) 04/24/2010 - Solar Lentigines 04/24/2010 - Strain of right knee and leg 05/18/2016 - Surgical Scar: skin of upper lip 10/14/2010 - Tarsal tunnel syndrome left - Telangiectasias 04/24/2010 - Tibial tendonitis, posterior, left - Tinea corporis 08/25/2010 - Type II or unspecified type diabetes mellitus without mention of complication, not stated as uncontrolled 09/18/2012 RESOLVED 09/2013 AFTER GASTRIC BYPASS - Unspecified sleep apnea 2004 Sleep apnea - Viral warts, unspecified 04/24/2010 - Xerosis cutis 08/25/2010 Previous Surgical History PAST SURGICAL HISTORY Procedure Laterality Date - EGD W/O OR W/BRUSH/WASH 05/17/2007 EGD - ESSURE 2008 [place] and HSG showed no open tubes - GASTRIC BYPASS HX 08/15/13 - HYSTERECTOMY 05/26/2017 [facility] - MIDLINE INSERTION/CONSULT 08/15/2013 - PAST SURGICAL HISTORY OF 2000 foot surgery - REMOVAL GALLBLADDER 2002 laparoscopic Family History FAMILY HISTORY Problem Relation Age of Onset - Psychiatry Father MANIC DEPRESSIVE SCHIZOPHRIENA - Heart Mother ASHD - Hypertension Mother - Hypertension Brother - Cancer Maternal Grandmother 2 TYPES - Diabetes Maternal Grandfather - Coronary Artery Disease Father - schizophrenia [Other] [OTHER] Brother Social History Social History Marital status: Legally Spouse name: FARZAD LEMUS Years of education: 12 Number of children: 2 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 General Appearance: Well appearing, alert, in no acute distress, well-hydrated, well nourished.. Skin: Small, aging bruises noted over limbs and torso: Left leg=5, Right leg=1, abdomen=3 and right wrist=1. No bruising on backside of legs and torso. Skin lesion: right buttock at leg pantyline: quarter size, well demarcated, mildly elevated, erythematous patch, noted peeling skin over central portion. No open area. Small firm beebee size, mobile and well delineated area underneath, consistent with sebaceous cyst Neck: Supple, no adenopathy; thyroid symmetric, normal size, no bruits. Lungs: Lungs clear to auscultation. No wheezing, rhonchi, rales. Heart: RRR without murmur, gallop, or rubs. No ectopy. ASSESSMENT/PLAN: 1. Bruising - ICD9: 924.9, ICD10: T14.8XXA (primary diagnosis) - Will check labs today, reassurance provided, no concerning symptoms and normal CBC 2 months ago with normal platelets. - CBC - ACTIVATED PTT - HEPATIC FUNCTION PNL 2. Acquired hypothyroidism - ICD9: 244.9, ICD10: E03.9 - check TSH today - TSH BLD 3. Sebaceous cyst - ICD9: 706.2, ICD10: L72.3 - Warned against squeezing or popping area. Feel it may have been secondarily infected or irritated at one time. Expect gradual resolution, no intervention needed at this time. Signs and sx of infection reviewed, red flags and action plan discussed. Dao Nolan, MSN WOOD GRINDER OPERATOR.ROLL WEIGHER Referring Provider: SELF [[id number]] Allergies As of Date: 02/10/2018 Noted Allergy Reaction DOXYCYCLINE HCL 01/24/2008 EFFEXOR (VENLAFAXINE HCL) 04/22/2005 5 - Intolerance Comments: WEIGFHT GAIN HCTZ [Other] 04/22/2005 Comments: LOSS OF K+ QUICKLY LIPITOR (ATORVASTATIN CALCIUM) 02/07/2013 14 - Other: See Comments Comments: myalgia PENICILLINS 04/22/2005 2 - Rash PRAVASTATIN 01/17/2013 14 - Other: See Comments Comments: abdominal pain, muscle crampin SILICONE 10/19/2005 [id number] REDUCTASE INHIBIT*04/18/2017 5 - Intolerance TOPAMAX (TOPIRAMATE) 01/17/2013 7 - Swelling ZOCOR (SIMVASTATIN) 03/27/2013 14 - Other: See Comments Comments: Leg muscle pain ZOLOFT (SERTRALINE HCL) 04/22/2005 5 - Intolerance Comments: ANTHONY Date Reviewed: 02/10/2018 Reviewed by: Jesus Tanner LPN - Fully Assessed Reason for Visit: Rash [1087] Cmt: on buttocks brusing [Other] Cmt: all over Primary Visit Diagnosis:Bruising [T14.8XXA] Other Visit Diagnoses:Acquired hypothyroidism [E03.9] Sebaceous cyst [L72.3] Order(s):TSH BLD [SQTSH] Order #: [id number] FUTURE CBC [SQCBC] Order #: [id number] FUTURE ACTIVATED PTT [SQPTT] Order #: [id number] FUTURE HEPATIC FUNCTION PNL [SQHFP] Order #: [id number] FUTURE Prescriptions as of 02/10/2018 Sig: MUPIROCIN 2 % TOPICAL OINTMENT Apply 1 application to affect* OMEPRAZOLE 20 MG CAPSULE,[place]* TAKE 1 CAPSULE TWICE A DAY ON* ZONISAMIDE 50 MG CAPSULE Take 50 mg by mouth once marta* OXYBUTYNIN CHLORIDE 5 MG TABL* Take 3 tablets by mouth once * CHOLECALCIFEROL (VITAMIN D3) * TAKE 1 CAPSULE ONCE A WEEK ERYTHROMYCIN-BENZOYL PEROXIDE* Apply thin layer to entire ac* NYSTATIN (BULK) 1 BILLION UNI* 1 application three times mckenna* RIZATRIPTAN 10 MG TABLET Take 1 tablet by mouth as nee* NYSTATIN 100,000 UNIT/GRAM TO* Apply twice a week to areas p* HYDROXYZINE PAMOATE 25 MG CAP* Take 1 capsule by mouth three* DITROPAN XL 10 MG TABLET,EXTE* Take 1 tablet by mouth once d* LEVOTHYROXINE 50 MCG TABLET TAKE 1 TABLET DAILY COMPOUNDED PRESCRIPTION KNEE HIGH COMPRESSION STOCKIN* ASCORBIC ACID (VITAMIN C) 500* Take 500 mg by mouth once mckenna* BUSPIRONE 5 MG TABLET Take 5 mg by mouth twice marta* TIZANIDINE ORAL Take by mouth twice daily as* CALCIUM CITRATE + ORAL Take by mouth. FERROUS SULFATE 325 MG (65 MG* Take 1 tablet by mouth daily * CYMBALTA 60 MG CAPSULE,DELAYE* Take one tab twice a day VITAMINS PLUS LOW IR* TAKE 1 TABLET DAILY MONTELUKAST 10 MG TABLET Take 1 tablet by mouth daily * FEXOFENADINE 60 MG-PSEUDOEPHE* Take 1 tablet by mouth twice * FESOTERODINE ER 4 MG TABLET,E* Take 1 tablet by mouth once d* TRIAMCINOLONE ACETONIDE 0.1 %* Apply 1 application to affect* Problem List As Of Date 02/10/2018 Noted Resolved BENIGN HYPERTENSION [I10] INVALID FOR* IRRITABLE COLON [K58.9] INVALID FOR* ESOPHAGEAL REFLUX [K21.9] INVALID FOR* Lumbago [M54.5] INVALID FOR*04/18/2017 ALLERGIC RHINITIS NOS [J30.9] INVALID FOR* Dysmetabolic syndrome X [E88.81] INVALID FOR*12/03/2013 Rosacea [L71.9] INVALID FOR*04/24/2010 Scanty or infrequent menstruation [N91.5] INVALID FOR*12/03/2013 Candidiasis of skin and nails [B37.2] INVALID FOR*04/18/2017 Postphlebetic syndrome with other complication *INVALID FOR*04/18/2017 Unspecified sleep apnea [G47.30] INVALID FOR*12/03/2013 More... Morbid obesity [E66.01] INVALID FOR*12/03/2013 Other and unspecified hyperlipidemia [E78.5] INVALID FOR* More... 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] INVALID FOR*04/18/2017 Melanocytic Nevus of Trunk: Back [D22.5] INVALID FOR*04/18/2017 Skin tag(s) INVALID FOR*04/18/2017 Viral warts, unspecified [B07.9] INVALID FOR*04/18/2017 Obesity [E66.9] INVALID FOR* Tinea corporis [B35.4] INVALID FOR*04/18/2017 Xerosis cutis [L85.3] INVALID FOR*04/18/2017 Surgical Scar: skin of upper lip [L90.5] INVALID FOR*04/18/2017 Restless legs syndrome [G25.81] INVALID FOR* Vitamin D deficiency [E55.9] INVALID FOR* SAMARIA (obstructive sleep apnea) [G47.33] INVALID FOR*12/03/2013 Hyperpigmentation of skin: under eyelids [L81.9]INVALID FOR*04/18/2017 Irregular menstrual cycle [N92.6] INVALID FOR*12/03/2013 Abdominal pain, left lower quadrant [R10.32] INVALID FOR*12/03/2013 Dysmenorrhea [N94.6] INVALID FOR* Type II or unspecified type diabetes mellitus w*INVALID FOR*12/15/2012 Pain in lower limb [M79.606] INVALID FOR*12/03/2013 Neuralgia, neuritis, and radiculitis, unspecifi*INVALID FOR* Type II or unspecified type diabetes mellitus w*INVALID FOR*12/03/2013 Encounter for dietary counseling and surveillan*INVALID FOR*04/18/2017 History of gastric bypass [Z98.84] INVALID FOR*04/18/2017 Depression [F32.9] INVALID FOR* History of irregular menstrual bleeding [Z87.42]INVALID FOR*04/18/2017 Acne vulgaris: inflammatory grade III (chin and*INVALID FOR*04/18/2017 Dermatofibroma [D23.9] INVALID FOR*04/18/2017 Melanocytic nevi of trunk [D22.5] INVALID FOR*04/18/2017 Sebaceous hyperplasia [L73.8] INVALID FOR*04/18/2017 Milial cyst [L72.0] INVALID FOR*04/18/2017 Migraine headache [G43.909] INVALID FOR* CRPS (complex regional pain syndrome) (HCC) [G9*INVALID FOR* 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 [D*INVALID FOR*04/18/2017 Atypical nevus of flank [D22.5] INVALID FOR*04/18/2017 Medication overuse headache [G44.40] INVALID FOR*04/18/2017 Migraine without aura [G43.009] INVALID FOR* Overactive bladder [N32.81] INVALID FOR* Acquired hypothyroidism [E03.9] INVALID FOR* Hypoproteinemia (HCC) [E77.8] INVALID FOR*09/09/2016 Hyponatremia [E87.1] INVALID FOR*09/09/2016 Strain of right knee and leg [S86.911A] INVALID FOR*04/18/2017 Encounter Status:Closed by DAO NOLAN CNP on 02/10/18 PROGRESS Observed: 01/19/2018 Status: COMPLETED Source: [place] 7:57 AM [facility] [place] REPOSITORY HNO ID: [id number] Author: Thuy Lemon (Senior Sustainability Advisor) Service: (none) Author Type: Nurse Practitioner Type: Progress Notes Filed: 01/19/2018 8:21 AM Note Text: 01/19/2018 Patient presents with: Derm Problem: on rearend x1 month SUBJECTIVE: This is a 42 year old that is here today for skin concern. She states that she has noticed an area of irritation on her lower right gluteal above the fold, but where her underwear sits for about a month. She states that it is occasionally irritated but not really painful and rarely itches. She states that it is not raised, but when pushing on it, it feels that there might be a ring. She tried to poke it with a needle and only gets blood. No fever or chills, no increase in size. PAST MEDICAL HISTORY Diagnosis Date - Acne vulgaris: inflammatory grade III (chin and jawline face) 03/07/2014 - Actinic Damage//Sun-Damaged Skin 04/24/2010 - Atypical nevus of flank 05/03/2014 - Benign hypertensive heart disease without heart failure - Candidiasis of skin and nails 12/15/2007 - Congenital pigmented melanocytic nevus 04/24/2010 - Degeneration of lumbar or lumbosacral intervertebral disc 04/09/2008 - Dermatofibroma 03/07/2014 - DVT (deep venous thrombosis) (HCC) after foot surgery 2000 - Dysthymic disorder Depression (non-psychotic)-POST DEPRESSION 1997 - Edema 02/10/2010 - Embolism and thrombosis of unspecified site 2000 LT LEG - Encounter for dietary counseling and surveillance 04/10/2013 - Esophagitis, unspecified - Generalized anxiety disorder 1998 Anxiety, Generalized - History of gastric bypass 08/15/13 - History of gastric bypass 09/17/2013 - History of irregular menstrual bleeding 12/03/2013 - Hyperlipidemia LDL goal < 100 12/19/2012 Resolved since gastric bypass - Hyperpigmentation of skin: under eyelids 02/22/2012 - Hypertension - Hypothyroid 09/19/2012 - Irritable bowel syndrome 1996 - Lumbago - Medication overuse headache 08/22/2014 - Melanocytic nevi of trunk 03/07/2014 - Melanocytic Nevus of Trunk: Back 04/24/2010 - Milial cyst 03/07/2014 - 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 05/03/2014 - Obesity, unspecified - Overactive bladder 10/02/2014 - Porokeratosis 04/24/2010 - Postphlebetic syndrome with other complication 12/28/2007 - Reflex sympathetic dystrophy of the lower limb 1998 LT. LEG3 - Rosacea 04/24/2010 - Sebaceous hyperplasia 03/07/2014 - Skin tag(s) 04/24/2010 - Solar Lentigines 04/24/2010 - Strain of right knee and leg 05/18/2016 - Surgical Scar: skin of upper lip 10/14/2010 - Tarsal tunnel syndrome left - Telangiectasias 04/24/2010 - Tinea corporis 08/25/2010 - Type II or unspecified type diabetes mellitus without mention of complication, not stated as uncontrolled 09/18/2012 RESOLVED 09/2013 AFTER GASTRIC BYPASS - Unspecified sleep apnea 2003 Sleep apnea - Viral warts, unspecified 04/24/2010 - Xerosis cutis 08/25/2010 ALLERGIES Doxycycline Hcl; Effexor [Venlafaxine Hcl]; Hctz [Other]; Lipitor [Atorvastatin Calcium]; Penicillins; Pravastatin; Silicone; Juqifio-Tce-Nyh Reductase Inhibitors; Topamax [Topiramate]; Zocor [Simvastatin]; Zoloft [Sertraline Hcl] MEDICATIONS Current Outpatient Prescriptions: omeprazole (PRILOSEC) 20 mg capsule TAKE 1 CAPSULE TWICE A DAY ON EMPTY STOMACH zonisamide (ZONEGRAN) 50 mg capsule Take 50 mg by mouth once daily. oxybutynin (DITROPAN) 5 mg tablet Take 3 tablets by mouth once daily. cholecalciferol, Vitamin D3, (VITAMIN D3) 50,000 unit cap capsule TAKE 1 CAPSULE ONCE A WEEK VITAMIN PLUS LOW IRON 27 mg iron- 1 mg tab TAKE 1 TABLET DAILY Erythromycin-Benzoyl Peroxide (BENZAMYCIN) gel Apply thin layer to entire acne-prone area(s) of face (optional neck and trunk areas but bewareof bleaching clothing) once to twice per day as directed and tolerated. Nystatin, Bulk, 1 billion unit powd 1 application three times daily as needed. rizatriptan (MAXALT) 10 mg tablet Take 1 tablet by mouth as needed. May repeat in 2 hours if needed nystatin (MYCOSTATIN) ointment Apply twice a week to areas prone to rash. hydrOXYzine pamoate (VISTARIL) 25 mg capsule Take 1 capsule by mouth three times daily as needed. montelukast (SINGULAIR) 10 mg tablet Take 1 tablet by mouth daily at bedtime. fexofenadine-pseudoephedrine (NATALYA D) 60-120 mg per tablet Take 1 tablet by mouth twice daily. DITROPAN XL 10 mg 24 hr tablet Take 1 tablet by mouth once daily. fesoterodine (TOVIAZ) 4 mg Tb24 extended release tablet Take 1 tablet by mouth once daily. triamcinolone acetonide (KENALOG) 0.1 % cream Apply 1 application to affected area three times daily. Apply sparingly to area for rash/itching. levothyroxine (SYNTHROID) 50 mcg tablet TAKE 1 TABLET DAILY COMPOUNDED PRESCRIPTION KNEE HIGH COMPRESSION STOCKINGS 30- 40 MM. DX: EDEMA ascorbic acid (VITAMIN C) 500 mg tablet Take 500 mg by mouth once daily. TIZANIDINE HCL (TIZANIDINE ORAL) Take by mouth twice daily as needed. CALCIUM CITRATE/VITAMIN D3 (CALCIUM CITRATE + ORAL) Take by mouth. Ferrous Sulfate 325 mg (65 mg iron) tablet Take 1 tablet by mouth daily with breakfast. duloxetine hcl(CYMBALTA 60 MG CAP) Take one tab twice a day busPIRone (BUSPAR) 5 mg tablet Take 5 mg by mouth twice daily. No current facility-administered medications for this visit. Medications and allergies reviewed by this provider. 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 . Vital signs reviewed by this provider. PHYSICAL EXAMINATION: General appearance: Well appearing, alert, in no acute distress, well-hydrated, well nourished. Skin: nickel sized erythematous flat patch on right lower gluteus, no drainage, heat, swelling, or open areas. The middle of it has a change in skin texture, unsure if that is due to previous attempt to drain from patient. No firmness noted beneath the lesion. No satellite lesions. ASSESSMENT/PLAN: 1. Skin infection - ICD9: 686.9, ICD10: L08.9 - No lymphangetic streaking, this was defined for patient to watch for and to seek medical care immediately if appears - encouraged to keep area clean and dry, wear cotton underwear, discouraged poking it with needles or fingers - MUPIROCIN 2 % TOPICAL OINTMENT - follow up if no improvement with topical ointment Thuy Lemon APRN.ROLL WEIGHER CNOV Observed: 01/19/2018 Status: COMPLETED Source: [place] 7:40 AM [facility] REPOSITORY Office Visit (FAMPWS) TASHA DE ([id number]) 1975 F Date Time Provider Department 01/19/18 7:40 AM THUY LEMON (TERESE) FAMPWS During your visit today, we recorded the following information about you: Temperature Pulse Respiration Blood pressure 97.6 degrees 76/minute 16/minute 104/78 Weight 81.2 kg Thuy Lemon (Terese) 01/19/2018 8:21 AM Signed 01/19/2018 Patient presents with: Derm Problem: on rearend x1 month SUBJECTIVE: This is a 42 year old that is here today for skin concern. She states that she has noticed an area of irritation on her lower right gluteal above the fold, but where her underwear sits for about a month. She states that it is occasionally irritated but not really painful and rarely itches. She states that it is not raised, but when pushing on it, it feels that there might be a ring. She tried to poke it with a needle and only gets blood. No fever or chills, no increase in size. PAST MEDICAL HISTORY Diagnosis Date - Acne vulgaris: inflammatory grade III (chin and jawline face) 03/07/2014 - Actinic Damage//Sun-Damaged Skin 04/24/2010 - Atypical nevus of flank 05/03/2014 - Benign hypertensive heart disease without heart failure - Candidiasis of skin and nails 12/15/2007 - Congenital pigmented melanocytic nevus 04/24/2010 - Degeneration of lumbar or lumbosacral intervertebral disc 04/09/2008 - Dermatofibroma 03/07/2014 - DVT (deep venous thrombosis) (HCC) after foot surgery 2000 - Dysthymic disorder Depression (non-psychotic)-POST DEPRESSION 1997 - Edema 02/10/2010 - Embolism and thrombosis of unspecified site 2000 LT LEG - Encounter for dietary counseling and surveillance 04/10/2013 - Esophagitis, unspecified - Generalized anxiety disorder 1998 Anxiety, Generalized - History of gastric bypass 08/15/13 - History of gastric bypass 09/17/2013 - History of irregular menstrual bleeding 12/03/2013 - Hyperlipidemia LDL goal < 100 12/19/2012 Resolved since gastric bypass - Hyperpigmentation of skin: under eyelids 02/22/2012 - Hypertension - Hypothyroid 09/19/2012 - Irritable bowel syndrome 1996 - Lumbago - Medication overuse headache 08/22/2014 - Melanocytic nevi of trunk 03/07/2014 - Melanocytic Nevus of Trunk: Back 04/24/2010 - Milial cyst 03/07/2014 - 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 05/03/2014 - Obesity, unspecified - Overactive bladder 10/02/2014 - Porokeratosis 04/24/2010 - Postphlebetic syndrome with other complication 12/28/2007 - Reflex sympathetic dystrophy of the lower limb 1998 LT. LEG3 - Rosacea 04/24/2010 - Sebaceous hyperplasia 03/07/2014 - Skin tag(s) 04/24/2010 - Solar Lentigines 04/24/2010 - Strain of right knee and leg 05/18/2016 - Surgical Scar: skin of upper lip 10/14/2010 - Tarsal tunnel syndrome left - Telangiectasias 04/24/2010 - Tinea corporis 08/25/2010 - Type II or unspecified type diabetes mellitus without mention of complication, not stated as uncontrolled 09/18/2012 RESOLVED 09/2013 AFTER GASTRIC BYPASS - Unspecified sleep apnea 2003 Sleep apnea - Viral warts, unspecified 04/24/2010 - Xerosis cutis 08/25/2010 ALLERGIES Doxycycline Hcl; Effexor [Venlafaxine Hcl]; Hctz [Other]; Lipitor [Atorvastatin Calcium]; Penicillins; Pravastatin; Silicone; Eubmpza-Esd-Omz Reductase Inhibitors; Topamax [Topiramate]; Zocor [Simvastatin]; Zoloft [Sertraline Hcl] MEDICATIONS Current Outpatient Prescriptions: omeprazole (PRILOSEC) 20 mg capsule TAKE 1 CAPSULE TWICE A DAY ON EMPTY STOMACH zonisamide (ZONEGRAN) 50 mg capsule Take 50 mg by mouth once daily. oxybutynin (DITROPAN) 5 mg tablet Take 3 tablets by mouth once daily. cholecalciferol, Vitamin D3, (VITAMIN D3) 50,000 unit cap capsule TAKE 1 CAPSULE ONCE A WEEK VITAMIN PLUS LOW IRON 27 mg iron- 1 mg tab TAKE 1 TABLET DAILY Erythromycin-Benzoyl Peroxide (BENZAMYCIN) gel Apply thin layer to entire acne-prone area(s) of face (optional neck and trunk areas but bewareof bleaching clothing) once to twice per day as directed and tolerated. Nystatin, Bulk, 1 billion unit powd 1 application three times daily as needed. rizatriptan (MAXALT) 10 mg tablet Take 1 tablet by mouth as needed. May repeat in 2 hours if needed nystatin (MYCOSTATIN) ointment Apply twice a week to areas prone to rash. hydrOXYzine pamoate (VISTARIL) 25 mg capsule Take 1 capsule by mouth three times daily as needed. montelukast (SINGULAIR) 10 mg tablet Take 1 tablet by mouth daily at bedtime. fexofenadine-pseudoephedrine (NATALYA D) 60-120 mg per tablet Take 1 tablet by mouth twice daily. DITROPAN XL 10 mg 24 hr tablet Take 1 tablet by mouth once daily. fesoterodine (TOVIAZ) 4 mg Tb24 extended release tablet Take 1 tablet by mouth once daily. triamcinolone acetonide (KENALOG) 0.1 % cream Apply 1 application to affected area three times daily. Apply sparingly to area for rash/itching. levothyroxine (SYNTHROID) 50 mcg tablet TAKE 1 TABLET DAILY COMPOUNDED PRESCRIPTION KNEE HIGH COMPRESSION STOCKINGS 30- 40 MM. DX: EDEMA ascorbic acid (VITAMIN C) 500 mg tablet Take 500 mg by mouth once daily. TIZANIDINE HCL (TIZANIDINE ORAL) Take by mouth twice daily as needed. CALCIUM CITRATE/VITAMIN D3 (CALCIUM CITRATE + ORAL) Take by mouth. Ferrous Sulfate 325 mg (65 mg iron) tablet Take 1 tablet by mouth daily with breakfast. duloxetine hcl(CYMBALTA 60 MG CAP) Take one tab twice a day busPIRone (BUSPAR) 5 mg tablet Take 5 mg by mouth twice daily. No current facility-administered medications for this visit. Medications and allergies reviewed by this provider. 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 . Vital signs reviewed by this provider. PHYSICAL EXAMINATION: General appearance: Well appearing, alert, in no acute distress, well-hydrated, well nourished. Skin: nickel sized erythematous flat patch on right lower gluteus, no drainage, heat, swelling, or open areas. The middle of it has a change in skin texture, unsure if that is due to previous attempt to drain from patient. No firmness noted beneath the lesion. No satellite lesions. ASSESSMENT/PLAN: 1. Skin infection - ICD9: 686.9, ICD10: L08.9 - No lymphangetic streaking, this was defined for patient to watch for and to seek medical care immediately if appears - encouraged to keep area clean and dry, wear cotton underwear, discouraged poking it with needles or fingers - MUPIROCIN 2 % TOPICAL OINTMENT - follow up if no improvement with topical ointment Thuy Lemon APRN.ROLL WEIGHER Referring Provider: SELF [200] Allergies As of Date: 01/19/2018 Noted Allergy Reaction DOXYCYCLINE HCL 01/24/2008 EFFEXOR (VENLAFAXINE HCL) 04/22/2005 5 - Intolerance Comments: WEIGFHT GAIN HCTZ [Other] 04/22/2005 Comments: LOSS OF K+ QUICKLY LIPITOR (ATORVASTATIN CALCIUM) 02/07/2013 14 - Other: See Comments Comments: myalgia PENICILLINS 04/22/2005 2 - Rash PRAVASTATIN 01/17/2013 14 - Other: See Comments Comments: abdominal pain, muscle crampin SILICONE 10/19/2005 [id number] REDUCTASE INHIBIT*04/18/2017 5 - Intolerance TOPAMAX (TOPIRAMATE) 01/17/2013 7 - Swelling ZOCOR (SIMVASTATIN) 03/27/2013 14 - Other: See Comments Comments: Leg muscle pain ZOLOFT (SERTRALINE HCL) 04/22/2005 5 - Intolerance Comments: ANTHONY Date Reviewed: 01/19/2018 Reviewed by: Kat Dolan Ma - Fully Assessed Reason for Visit: Derm Problem [33] Cmt: on rearend x1 month Primary Visit Diagnosis:Skin infection [L08.9] Order(s):mupirocin (BACTROBAN) 2 % ointmentApply 1 application to affected area three times daily.Disp: 1 TubeRfl: 1 Prescriptions as of 01/19/2018 Sig: OMEPRAZOLE 20 MG CAPSULE,[place]* TAKE 1 CAPSULE TWICE A DAY ON* ZONISAMIDE 50 MG CAPSULE Take 50 mg by mouth once marta* OXYBUTYNIN CHLORIDE 5 MG TABL* Take 3 tablets by mouth once * CHOLECALCIFEROL (VITAMIN D3) * TAKE 1 CAPSULE ONCE A WEEK VITAMINS PLUS LOW IR* TAKE 1 TABLET DAILY ERYTHROMYCIN-BENZOYL PEROXIDE* Apply thin layer to entire ac* NYSTATIN (BULK) 1 BILLION UNI* 1 application three times mckenna* RIZATRIPTAN 10 MG TABLET Take 1 tablet by mouth as nee* NYSTATIN 100,000 UNIT/GRAM TO* Apply twice a week to areas p* HYDROXYZINE PAMOATE 25 MG CAP* Take 1 capsule by mouth three* MONTELUKAST 10 MG TABLET Take 1 tablet by mouth daily * FEXOFENADINE 60 MG-PSEUDOEPHE* Take 1 tablet by mouth twice * DITROPAN XL 10 MG TABLET,EXTE* Take 1 tablet by mouth once d* FESOTERODINE ER 4 MG TABLET,E* Take 1 tablet by mouth once d* TRIAMCINOLONE ACETONIDE 0.1 %* Apply 1 application to affect* LEVOTHYROXINE 50 MCG TABLET TAKE 1 TABLET DAILY COMPOUNDED PRESCRIPTION KNEE HIGH COMPRESSION STOCKIN* ASCORBIC ACID (VITAMIN C) 500* Take 500 mg by mouth once mckenna* TIZANIDINE ORAL Take by mouth twice daily as* CALCIUM CITRATE + ORAL Take by mouth. FERROUS SULFATE 325 MG (65 MG* Take 1 tablet by mouth daily * CYMBALTA 60 MG CAPSULE,DELAYE* Take one tab twice a day MUPIROCIN 2 % TOPICAL OINTMENT Apply 1 application to affect* BUSPIRONE 5 MG TABLET Take 5 mg by mouth twice marta* Problem List As Of Date 01/19/2018 Noted Resolved BENIGN HYPERTENSION [I10] INVALID FOR* IRRITABLE COLON [K58.9] INVALID FOR* ESOPHAGEAL REFLUX [K21.9] INVALID FOR* Lumbago [M54.5] INVALID FOR*04/18/2017 ALLERGIC RHINITIS NOS [J30.9] INVALID FOR* Dysmetabolic syndrome X [E88.81] INVALID FOR*12/03/2013 Rosacea [L71.9] INVALID FOR*04/24/2010 Scanty or infrequent menstruation [N91.5] INVALID FOR*12/03/2013 Candidiasis of skin and nails [B37.2] INVALID FOR*04/18/2017 Postphlebetic syndrome with other complication *INVALID FOR*04/18/2017 Unspecified sleep apnea [G47.30] INVALID FOR*12/03/2013 More... Morbid obesity [E66.01] INVALID FOR*12/03/2013 Other and unspecified hyperlipidemia [E78.5] INVALID FOR* More... 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] INVALID FOR*04/18/2017 Melanocytic Nevus of Trunk: Back [D22.5] INVALID FOR*04/18/2017 Skin tag(s) INVALID FOR*04/18/2017 Viral warts, unspecified [B07.9] INVALID FOR*04/18/2017 Obesity [E66.9] INVALID FOR* Tinea corporis [B35.4] INVALID FOR*04/18/2017 Xerosis cutis [L85.3] INVALID FOR*04/18/2017 Surgical Scar: skin of upper lip [L90.5] INVALID FOR*04/18/2017 Restless legs syndrome [G25.81] INVALID FOR* Vitamin D deficiency [E55.9] INVALID FOR* SAMARIA (obstructive sleep apnea) [G47.33] INVALID FOR*12/03/2013 Hyperpigmentation of skin: under eyelids [L81.9]INVALID FOR*04/18/2017 Irregular menstrual cycle [N92.6] INVALID FOR*12/03/2013 Abdominal pain, left lower quadrant [R10.32] INVALID FOR*12/03/2013 Dysmenorrhea [N94.6] INVALID FOR* Type II or unspecified type diabetes mellitus w*INVALID FOR*12/15/2012 Pain in lower limb [M79.606] INVALID FOR*12/03/2013 Neuralgia, neuritis, and radiculitis, unspecifi*INVALID FOR* Type II or unspecified type diabetes mellitus w*INVALID FOR*12/03/2013 Encounter for dietary counseling and surveillan*INVALID FOR*04/18/2017 History of gastric bypass [Z98.84] INVALID FOR*04/18/2017 Depression [F32.9] INVALID FOR* History of irregular menstrual bleeding [Z87.42]INVALID FOR*04/18/2017 Acne vulgaris: inflammatory grade III (chin and*INVALID FOR*04/18/2017 Dermatofibroma [D23.9] INVALID FOR*04/18/2017 Melanocytic nevi of trunk [D22.5] INVALID FOR*04/18/2017 Sebaceous hyperplasia [L73.8] INVALID FOR*04/18/2017 Milial cyst [L72.0] INVALID FOR*04/18/2017 Migraine headache [G43.909] INVALID FOR* CRPS (complex regional pain syndrome) (HCC) [G9*INVALID FOR* 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 [D*INVALID FOR*04/18/2017 Atypical nevus of flank [D22.5] INVALID FOR*04/18/2017 Medication overuse headache [G44.40] INVALID FOR*04/18/2017 Migraine without aura [G43.009] INVALID FOR* Overactive bladder [N32.81] INVALID FOR* Acquired hypothyroidism [E03.9] INVALID FOR* Hypoproteinemia (HCC) [E77.8] INVALID FOR*09/09/2016 Hyponatremia [E87.1] INVALID FOR*09/09/2016 Strain of right knee and leg [S86.911A] INVALID FOR*04/18/2017 Prescriptions ordered this encounter Disp Refills Start End MUPIROCIN 2 % TOPICAL OINTMENT 1 Tu* 1 01/19/2018 Route: TOPICAL Sig: Apply 1 application to affected area three times daily. Medications Discontinued During This Encounter tiZANidine (ZANAFLEX) 4 mg tablet 01/11/2018 01/19/2018 Class: Historical Med Route: ORAL Sig: Take by mouth as directed. Disc: Duplicate Entry Encounter Status:Closed by THUY LEMON on 01/19/18 PROGRESS Observed: 12/22/2017 Status: COMPLETED Source: [place] 9:09 AM [facility] [place] REPOSITORY O ID: [id number] Author: Bharti (Jennifer) Ronny Service: (none) Author Type: Registered Dietitian Type: Progress Notes Filed: 12/22/2017 3:46 PM Note Text: Nutritional Therapy: 52 months post op Patel en Y Gastric Bypass, weight regain, hypoglycemia Re-Assessment PAIN: Is the patient having any pain that is interfering with oral / enteral intake? No 0 on a scale of 0 to 10 PROGRESS: Nutrition Intervention (date of last encounter 01/24/2017) 1. Follow a (5-6) small meals per day. (200-250 calories each). Protein + carbohydrate. Do not skip meals. - not met Have foods on hand that you like Consider having Lean Cuisines or Smart ones available 2. Continue walking for exercise 30-45 minutes/session - partially met 3. Continue to drink water as your main beverage. Diet iced tea is fine. - not met 4. Continue to take all recommended vitamin/minerals. - - partially met CHANGES IN TREATMENT: Patient met goal(s): Partially Actions to implement interventions: Diet History: Breakfast - sugar cereal and milk (multiple bowls of cereal throughout the day) Graze pattern of eating armando butter, cereal sugar frosted Lunch - toast/egg/cheese(2) Dinner - BBQ chicken green beans, buttered noodles or mashed potato Snack - candy, caramel M ANDM's Beverages - regular soda, or diet iced tea Zonegran - [address] Turner session CLINICAL IMPRESSIONS: fair REVISIONS IN DIAGNOSIS: Diagnosis: has not changed. Allergies: Doxycycline Hcl; Effexor [Venlafaxine Hcl]; Hctz [Other]; Lipitor [Atorvastatin Calcium]; Penicillins; Pravastatin; Silicone; Arizdyx-Sap-Iky Reductase Inhibitors; Topamax [Topiramate]; Zocor [Simvastatin]; Zoloft [Sertraline Hcl] Medications: Current Outpatient Prescriptions: omeprazole (PRILOSEC) 20 mg capsule TAKE 1 CAPSULE TWICE A DAY ON EMPTY STOMACH Disp: 56 capsule Rfl: 3 zonisamide (ZONEGRAN) 50 mg capsule Take 50 mg by mouth once daily. Disp: Rfl: oxybutynin (DITROPAN) 5 mg tablet Take 3 tablets by mouth once daily. Disp: 270 tablet Rfl: 3 cholecalciferol, Vitamin D3, (VITAMIN D3) 50,000 unit cap capsule TAKE 1 CAPSULE ONCE A WEEK Disp: 4 capsule Rfl: 11 VITAMIN PLUS LOW IRON 27 mg iron- 1 mg tab TAKE 1 TABLET DAILY Disp: 28 tablet Rfl: 11 Erythromycin-Benzoyl Peroxide (BENZAMYCIN) gel Apply thin layer to entire acne-prone area(s) of face (optional neck and trunk areas but bewareof bleaching clothing) once to twice per day as directed and tolerated. Disp: 25 g Rfl: 3 Nystatin, Bulk, 1 billion unit powd 1 application three times daily as needed. Disp: 1 Each Rfl: 11 rizatriptan (MAXALT) 10 mg tablet Take 1 tablet by mouth as needed. May repeat in 2 hours if needed Disp: 9 tablet Rfl: 0 nystatin (MYCOSTATIN) ointment Apply twice a week to areas prone to rash. Disp: 30 g Rfl: 2 hydrOXYzine pamoate (VISTARIL) 25 mg capsule Take 1 capsule by mouth three times daily as needed. Disp: 90 capsule Rfl: 0 montelukast (SINGULAIR) 10 mg tablet Take 1 tablet by mouth daily at bedtime. Disp: 30 tablet Rfl: 0 fexofenadine-pseudoephedrine (NATALYA D) 60-120 mg per tablet Take 1 tablet by mouth twice daily. Disp: 60 tablet Rfl: 3 DITROPAN XL 10 mg 24 hr tablet Take 1 tablet by mouth once daily. Disp: 90 tablet Rfl: 3 fesoterodine (TOVIAZ) 4 mg Tb24 extended release tablet Take 1 tablet by mouth once daily. Disp: 90 tablet Rfl: 3 triamcinolone acetonide (KENALOG) 0.1 % cream Apply 1 application to affected area three times daily. Apply sparingly to area for rash/itching. Disp: 30 g Rfl: 0 levothyroxine (SYNTHROID) 50 mcg tablet TAKE 1 TABLET DAILY Disp: 90 tablet Rfl: 3 COMPOUNDED PRESCRIPTION KNEE HIGH COMPRESSION STOCKINGS 30- 40 MM. DX: EDEMA Disp: 8 Each Rfl: 2 ascorbic acid (VITAMIN C) 500 mg tablet Take 500 mg by mouth once daily. Disp: Rfl: busPIRone (BUSPAR) 5 mg tablet Take 5 mg by mouth twice daily. Disp: Rfl: TIZANIDINE HCL (TIZANIDINE ORAL) Take by mouth twice daily as needed. Disp: Rfl: CALCIUM CITRATE/VITAMIN D3 (CALCIUM CITRATE + ORAL) Take by mouth. Disp: Rfl: Ferrous Sulfate 325 mg (65 mg iron) tablet Take 1 tablet by mouth daily with breakfast. Disp: 30 tablet Rfl: 12 duloxetine hcl(CYMBALTA 60 MG CAP) Take one tab twice a day Disp: 0 Rfl: 0 No current facility-administered medications for this visit. (currently taking) Anthropometrics: Height: Last 1 Encounter Ht Readings: Date: Ht: 11/29/2017 160.7 cm (5' 3.27) Current weight: Last 1 Encounter Wt Readings: Date: Wt: 11/29/2017 84.4 kg (186 lb) There is no height or weight on file to calculate BMI. Resting Metabolic Rate: 1484 NUTRITION ASSESSMENT: Malnutrition Screening Significant unintentional weight loss? No Eating less than 75% of usual intake for more than 2 weeks? No RECOMMENDED MALNUTRITION DIAGNOSIS: NO MALNUTRITION IDENTIFIED Nutritional status: No Malnutrition Identified Nutritional status: No Malnutrition Identified Educational materials provided: Your Guide to Bariatric Surgery 2018 edition READINESS TO LEARN Cognitive ability: Alert and oriented Motivation to learn: Eager Family support: High - Very involved in pt care Instruction provided to: Patient and Daughter Patient learns best by: Individual Instruction Written Instruction - Hand-outs Verbal Instruction Factors affecting learning: Emotional Factors: Anxious Physical limitations affecting learning: None Likelihood of Adherence: Low Patient presents 54 months post op Patel en Y Gastric Bypass. Net weight loss 100 pounds since initial assessment (284 pounds) accounting for 65 % loss excess body weight Brian 140 lbs - Weight regain of 50 lbs (to 190 pounds). Presents today for hypoglycemia, graze pattern of eating and desire for continued weight loss. Diet recall indicates daily consumption sugar laden soda, candy, sugar laden cereal consumed in graze pattern of eating from waking to bedtime. Patient reports several hypoglycemic responses daily (2-3) most likely associated with reactive hypoglycemia resulting from high carbohydrate intake with Patel en Y Gastric Bypass anatomy. Inconsistent exercise pattern at best, often no exercise for several months. Patient has not returned to post-surgery meal planning/exercise plan or goals. Vitamin/mineral use also inconsistent, reports daily intake multivitamin and Vit B12 only. Other supplements either not taken or taken 3-6 times/month. Elevated cholesterol (total/HDL) likely directly associated with high sugar/carbohydrate intake. Results for TASHA DE ( ) as of 12/22/2017 09:36 Ref. Range 11/25/2017 08:06 Vitamin B12 Latest Ref Range: 232 - 1245 pg/mL 1641 (H) Results for TASHA DE ( ) as of 12/22/2017 09:36 Ref. Range 11/25/2017 08:06 Cholesterol, Total Latest Ref Range: <200 mg/dL 220 (H) Triglyceride Latest Ref Range: <150 mg/dL 167 (H) Fasting Time Latest Units: hrs 12 HDL Cholesterol Latest Ref Range: >39 mg/dL 51 LDL Cholesterol Latest Ref Range: <100 mg/dL 136 (H) Nutrition Diagnosis: Altered Gastrointestinal Tract Function, related to; alterations in GI anatomical structure, e.g. Patel en Y, as evidenced by surgical anatomy Physical Inactivity, related to; lack of value or competing values for behavior change, as evidenced by inconsistent exercise routine Excessive carbohydrate intake, related to: Hypoglycemia, as evidenced by frequent daily episodes of hypoglycemia in response to eating/drinking excessive amounts of sugar post Patel - en Y gastric bypass. Nutrition Intervention 12/22/2017: Comprehensive Nutrition Education 1.Take daily multivitamin/multi mineral plus VIt D3 3,000 IU, Vit B12 500 mcg every other day due to elevated level, Iron 45 mg and calcium citrate 3032-9215 mg/day . It is okay to use combination vitamin/minerals to reduce pill volume. Page 43 of Your Guide to Surgery 2. Protein goal: 71- 89 grams protein/day 3. Fluid goal: 64oz per day water. (no calories/sugar, no caffeine, no carbonation, no alcohol) Limit to 8 ounces Fairlife low fat chocolate milk per day 4. Exercise goal: 150-250 minutes combination cardio/strength training/week 5. Practice these: Eat in this order protein first, vegetable and fruit second and whole grain carbohydrates last. * Separate eating and drinking by 30 minutes * Chew your food 20-30x per bite * Meals should last 30 minutes. 6. Best Aftercare with Psychology 7. Always eat 3-4 ounces protein plus vegetables with meals, add only 1/4 to 1/2 cup carbohydrate Nutrition Monitoring AND Evaluation: BMI < 30 kg/m2 Criteria: weight check Need for Follow up: Annual Referred/Supervised by: Ekta/Ekta GERMAIN Billing Type: Re-assess/15 min 4 units SIGNATURE: Bharti Welsh RD PATIENT NAME: Tasha Morrell Jim DATE: December 22, 2017 TIME: 9:09 AM PAGER: [phone] CNCNPATED Observed: 12/22/2017 Status: COMPLETED Source: [place] 9:00 AM [facility] REPOSITORY Education (GENBMI) TASHA DE ([id number]) 1975 F Date Time Provider Department 12/22/17 9:00 AM BHARTI WELSH (JENNIFER) GEN[facility] Reason for Visit: Patient Education [91] Reassessment [674] Progress Notes: Bharti Welsh RD 12/22/2017 3:46 PM Signed Nutritional Therapy: 52 months post op Patel en Y Gastric Bypass, weight regain, hypoglycemia Re-Assessment PAIN: Is the patient having any pain that is interfering with oral / enteral intake? No 0 on a scale of 0 to 10 PROGRESS: Nutrition Intervention (date of last encounter 01/24/2017) 1. Follow a (5-6) small meals per day. (200-250 calories each). Protein + carbohydrate. Do not skip meals. - not met Have foods on hand that you like Consider having Lean Cuisines or Smart ones available 2. Continue walking for exercise 30-45 minutes/session - partially met 3. Continue to drink water as your main beverage. Diet iced tea is fine. - not met 4. Continue to take all recommended vitamin/minerals. - - partially met CHANGES IN TREATMENT: Patient met goal(s): Partially Actions to implement interventions: Diet History: Breakfast - sugar cereal and milk (multiple bowls of cereal throughout the day) Graze pattern of eating armando butter, cereal sugar frosted Lunch - toast/egg/cheese(2) Dinner - BBQ chicken green beans, buttered noodles or mashed potato Snack - candy, caramel M ANDM's Beverages - regular soda, or diet iced tea Zonegran - [address] Turner session CLINICAL IMPRESSIONS: fair REVISIONS IN DIAGNOSIS: Diagnosis: has not changed. Allergies: Doxycycline Hcl; Effexor [Venlafaxine Hcl]; Hctz [Other]; Lipitor [Atorvastatin Calcium]; Penicillins; Pravastatin; Silicone; Nwbdtcj-Rrg-Iwm Reductase Inhibitors; Topamax [Topiramate]; Zocor [Simvastatin]; Zoloft [Sertraline Hcl] Medications: Current Outpatient Prescriptions: omeprazole (PRILOSEC) 20 mg capsule TAKE 1 CAPSULE TWICE A DAY ON EMPTY STOMACH Disp: 56 capsule Rfl: 3 zonisamide (ZONEGRAN) 50 mg capsule Take 50 mg by mouth once daily. Disp: Rfl: oxybutynin (DITROPAN) 5 mg tablet Take 3 tablets by mouth once daily. Disp: 270 tablet Rfl: 3 cholecalciferol, Vitamin D3, (VITAMIN D3) 50,000 unit cap capsule TAKE 1 CAPSULE ONCE A WEEK Disp: 4 capsule Rfl: 11 VITAMIN PLUS LOW IRON 27 mg iron- 1 mg tab TAKE 1 TABLET DAILY Disp: 28 tablet Rfl: 11 Erythromycin-Benzoyl Peroxide (BENZAMYCIN) gel Apply thin layer to entire acne-prone area(s) of face (optional neck and trunk areas but bewareof bleaching clothing) once to twice per day as directed and tolerated. Disp: 25 g Rfl: 3 Nystatin, Bulk, 1 billion unit powd 1 application three times daily as needed. Disp: 1 Each Rfl: 11 rizatriptan (MAXALT) 10 mg tablet Take 1 tablet by mouth as needed. May repeat in 2 hours if needed Disp: 9 tablet Rfl: 0 nystatin (MYCOSTATIN) ointment Apply twice a week to areas prone to rash. Disp: 30 g Rfl: 2 hydrOXYzine pamoate (VISTARIL) 25 mg capsule Take 1 capsule by mouth three times daily as needed. Disp: 90 capsule Rfl: 0 montelukast (SINGULAIR) 10 mg tablet Take 1 tablet by mouth daily at bedtime. Disp: 30 tablet Rfl: 0 fexofenadine-pseudoephedrine (NATALYA D) 60-120 mg per tablet Take 1 tablet by mouth twice daily. Disp: 60 tablet Rfl: 3 DITROPAN XL 10 mg 24 hr tablet Take 1 tablet by mouth once daily. Disp: 90 tablet Rfl: 3 fesoterodine (TOVIAZ) 4 mg Tb24 extended release tablet Take 1 tablet by mouth once daily. Disp: 90 tablet Rfl: 3 triamcinolone acetonide (KENALOG) 0.1 % cream Apply 1 application to affected area three times daily. Apply sparingly to area for rash/itching. Disp: 30 g Rfl: 0 levothyroxine (SYNTHROID) 50 mcg tablet TAKE 1 TABLET DAILY Disp: 90 tablet Rfl: 3 COMPOUNDED PRESCRIPTION KNEE HIGH COMPRESSION STOCKINGS 30- 40 MM. DX: EDEMA Disp: 8 Each Rfl: 2 ascorbic acid (VITAMIN C) 500 mg tablet Take 500 mg by mouth once daily. Disp: Rfl: busPIRone (BUSPAR) 5 mg tablet Take 5 mg by mouth twice daily. Disp: Rfl: TIZANIDINE HCL (TIZANIDINE ORAL) Take by mouth twice daily as needed. Disp: Rfl: CALCIUM CITRATE/VITAMIN D3 (CALCIUM CITRATE + ORAL) Take by mouth. Disp: Rfl: Ferrous Sulfate 325 mg (65 mg iron) tablet Take 1 tablet by mouth daily with breakfast. Disp: 30 tablet Rfl: 12 duloxetine hcl(CYMBALTA 60 MG CAP) Take one tab twice a day Disp: 0 Rfl: 0 No current facility-administered medications for this visit. (currently taking) Anthropometrics: Height: Last 1 Encounter Ht Readings: Date: Ht: 11/29/2017 160.7 cm (5' 3.27) Current weight: Last 1 Encounter Wt Readings: Date: Wt: 11/29/2017 84.4 kg (186 lb) There is no height or weight on file to calculate BMI. Resting Metabolic Rate: 1484 NUTRITION ASSESSMENT: Malnutrition Screening Significant unintentional weight loss? No Eating less than 75% of usual intake for more than 2 weeks? No RECOMMENDED MALNUTRITION DIAGNOSIS: NO MALNUTRITION IDENTIFIED Nutritional status: No Malnutrition Identified Nutritional status: No Malnutrition Identified Educational materials provided: Your Guide to Bariatric Surgery 2018 edition READINESS TO LEARN Cognitive ability: Alert and oriented Motivation to learn: Eager Family support: High - Very involved in pt care Instruction provided to: Patient and Daughter Patient learns best by: Individual Instruction Written Instruction - Hand-outs Verbal Instruction Factors affecting learning: Emotional Factors: Anxious Physical limitations affecting learning: None Likelihood of Adherence: Low Patient presents 54 months post op Patel en Y Gastric Bypass. Net weight loss 100 pounds since initial assessment (284 pounds) accounting for 65 % loss excess body weight Brian 140 lbs - Weight regain of 50 lbs (to 190 pounds). Presents today for hypoglycemia, graze pattern of eating and desire for continued weight loss. Diet recall indicates daily consumption sugar laden soda, candy, sugar laden cereal consumed in graze pattern of eating from waking to bedtime. Patient reports several hypoglycemic responses daily (2-3) most likely associated with reactive hypoglycemia resulting from high carbohydrate intake with Patel en Y Gastric Bypass anatomy. Inconsistent exercise pattern at best, often no exercise for several months. Patient has not returned to post-surgery meal planning/exercise plan or goals. Vitamin/mineral use also inconsistent, reports daily intake multivitamin and Vit B12 only. Other supplements either not taken or taken 3-6 times/month. Elevated cholesterol (total/HDL) likely directly associated with high sugar/carbohydrate intake. Results for TSAHA DE ( ) as of 12/22/2017 09:36 Ref. Range 11/25/2017 08:06 Vitamin B12 Latest Ref Range: 232 - 1245 pg/mL 1641 (H) Results for TASHA DE ( ) as of 12/22/2017 09:36 Ref. Range 11/25/2017 08:06 Cholesterol, Total Latest Ref Range: <200 mg/dL 220 (H) Triglyceride Latest Ref Range: <150 mg/dL 167 (H) Fasting Time Latest Units: hrs 12 HDL Cholesterol Latest Ref Range: >39 mg/dL 51 LDL Cholesterol Latest Ref Range: <100 mg/dL 136 (H) Nutrition Diagnosis: Altered Gastrointestinal Tract Function, related to; alterations in GI anatomical structure, e.g. Patel en Y, as evidenced by surgical anatomy Physical Inactivity, related to; lack of value or competing values for behavior change, as evidenced by inconsistent exercise routine Excessive carbohydrate intake, related to: Hypoglycemia, as evidenced by frequent daily episodes of hypoglycemia in response to eating/drinking excessive amounts of sugar post Patel - en Y gastric bypass. Nutrition Intervention 12/22/2017: Comprehensive Nutrition Education 1.Take daily multivitamin/multi mineral plus VIt D3 3,000 IU, Vit B12 500 mcg every other day due to elevated level, Iron 45 mg and calcium citrate 4474-0224 mg/day . It is okay to use combination vitamin/minerals to reduce pill volume. Page 43 of Your Guide to Surgery 2. Protein goal: 71- 89 grams protein/day 3. Fluid goal: 64oz per day water. (no calories/sugar, no caffeine, no carbonation, no alcohol) Limit to 8 ounces Fairlife low fat chocolate milk per day 4. Exercise goal: 150-250 minutes combination cardio/strength training/week 5. Practice these: Eat in this order protein first, vegetable and fruit second and whole grain carbohydrates last. * Separate eating and drinking by 30 minutes * Chew your food 20-30x per bite * Meals should last 30 minutes. 6. Best Aftercare with Psychology 7. Always eat 3-4 ounces protein plus vegetables with meals, add only 1/4 to 1/2 cup carbohydrate Nutrition Monitoring AND Evaluation: BMI < 30 kg/m2 Criteria: weight check Need for Follow up: Annual Referred/Supervised by: Ekta/Ekta GERMAIN Billing Type: Re-assess/15 min 4 units SIGNATURE: Bharti Welsh RD PATIENT NAME: Tasha De DATE: December 22, 2017 TIME: 9:09 AM PAGER: [phone] Primary Visit Diagnosis:Class 1 obesity due to excess calories without serious comorbidity with body mass index (BMI) of 32.0 to 32.9 in adult [E66.09, Z68.32] Other Visit Diagnoses:Recent weight gain after surgical therapy for obesity [Z98.84, R63.5] Dietary counseling and surveillance [Z71.3] During your visit today, we recorded the following information about you: Weight Height 83.5 kg 1.605 m Allergies As of Date: 12/22/2017 Noted Allergy Reaction DOXYCYCLINE HCL 01/24/2008 EFFEXOR (VENLAFAXINE HCL) 04/22/2005 5 - Intolerance Comments: SMITH GAIN HCTZ [Other] 04/22/2005 Comments: LOSS OF K+ QUICKLY LIPITOR (ATORVASTATIN CALCIUM) 02/07/2013 14 - Other: See Comments Comments: myalgia PENICILLINS 04/22/2005 2 - Rash PRAVASTATIN 01/17/2013 14 - Other: See Comments Comments: abdominal pain, muscle crampin SILICONE 10/19/2005 [id number] REDUCTASE INHIBIT*04/18/2017 5 - Intolerance TOPAMAX (TOPIRAMATE) 01/17/2013 7 - Swelling ZOCOR (SIMVASTATIN) 03/27/2013 14 - Other: See Comments Comments: Leg muscle pain ZOLOFT (SERTRALINE HCL) 04/22/2005 5 - Intolerance Comments: ANTHONY Date Reviewed: 12/22/2017 Reviewed by: Bharti Go) Ronny - Fully Assessed Prescriptions as of 12/22/2017 Sig: OMEPRAZOLE 20 MG CAPSULE,[place]* TAKE 1 CAPSULE TWICE A DAY ON* ZONISAMIDE 50 MG CAPSULE Take 50 mg by mouth once marta* OXYBUTYNIN CHLORIDE 5 MG TABL* Take 3 tablets by mouth once * CHOLECALCIFEROL (VITAMIN D3) * TAKE 1 CAPSULE ONCE A WEEK VITAMINS PLUS LOW IR* TAKE 1 TABLET DAILY ERYTHROMYCIN-BENZOYL PEROXIDE* Apply thin layer to entire ac* NYSTATIN (BULK) 1 BILLION UNI* 1 application three times mckenna* RIZATRIPTAN 10 MG TABLET Take 1 tablet by mouth as nee* NYSTATIN 100,000 UNIT/GRAM TO* Apply twice a week to areas p* HYDROXYZINE PAMOATE 25 MG CAP* Take 1 capsule by mouth three* MONTELUKAST 10 MG TABLET Take 1 tablet by mouth daily * FEXOFENADINE 60 MG-PSEUDOEPHE* Take 1 tablet by mouth twice * DITROPAN XL 10 MG TABLET,EXTE* Take 1 tablet by mouth once d* FESOTERODINE ER 4 MG TABLET,E* Take 1 tablet by mouth once d* TRIAMCINOLONE ACETONIDE 0.1 %* Apply 1 application to affect* LEVOTHYROXINE 50 MCG TABLET TAKE 1 TABLET DAILY COMPOUNDED PRESCRIPTION KNEE HIGH COMPRESSION STOCKIN* ASCORBIC ACID (VITAMIN C) 500* Take 500 mg by mouth once mckenna* BUSPIRONE 5 MG TABLET Take 5 mg by mouth twice marta* TIZANIDINE ORAL Take by mouth twice daily as* CALCIUM CITRATE + ORAL Take by mouth. FERROUS SULFATE 325 MG (65 MG* Take 1 tablet by mouth daily * CYMBALTA 60 MG CAPSULE,DELAYE* Take one tab twice a day Letter Text [facility] [address] [place], [place] [address] December 22, 2017 Tasha De [address] [place] [id number] [place] [address] Nutrition Intervention 12/22/2017: Comprehensive Nutrition Education 1.Take daily multivitamin/multi mineral plus VIt D3 3,000 IU, Vit B12 500 mcg every other day due to elevated level, Iron 45 mg and calcium citrate 2383-8287 mg/day . It is okay to use combination vitamin/minerals to reduce pill volume. Page 43 of Your Guide to Surgery 2. Protein goal: 71- 89 grams protein/day 3. Fluid goal: 64oz per day water. (no calories/sugar, no caffeine, no carbonation, no alcohol) Limit to 8 ounces LIFEMODELERlife low fat chocolate milk per day 4. Restart exercise to goal: 200 minutes combination cardio/strength training/week 5. Practice these: Eat in this order protein first, vegetable and fruit second and whole grain carbohydrates last. * Separate eating and drinking by 30 minutes * Chew your food 20-30x per bite * Meals should last 30 minutes. 6. Best Aftercare with Psychology 7. Always eat 3-4 ounces protein plus vegetables with meals, add only 1/4 to 1/2 cup carbohydrate Nutrition Monitoring AND Evaluation: BMI < 30 kg/m2 Criteria: weight check Need for Follow up: Annual Bharti Welsh RD Encounter Status:Closed by BHARTI WELSH on 12/22/17 MRI BRAIN W/WO Observed: 12/13/2017 Status: F Source: [facility] 10:40 AM [facility] Patient Name: TASHA DE STUDY: MRI BRAIN W/WO CONTRAST; 12/13/2017 10:40 am INDICATION: Intractable migraine. Evaluate for intracranial abnormality. Approved. COMPARISON: None. ACCESSION NUMBER(S): [id number] ORDERING CLINICIAN: MELISSA PALOMARES TECHNIQUE: The brain was studied in the sagittal, axial and coronal planes utilizing FLAIR, T1 and T2 weighted images. FINDINGS: There is a normal-size ventricular system. There are scattered foci of increased signal in the subcortical and periventricular white matter best appreciated on FLAIR images. These likely represent foci of demyelination of uncertain cause and significance and may be physiologic at this patient's stated age. There is no evidence of intracranial mass or extra-axial collection. The skull base, paranasal sinuses and orbital structures are unremarkable. Diffusion weighted images and associated ADC maps of the brain were unremarkable. There is no evidence of diffusion restriction to suggest the presence of acute infarction. Following intravenous injection of 16 cc MultiHance,there is no abnormal enhancement. IMPRESSION: *There is no evidence of hemohrage, mass lesion or acute infarction. THIS EXAMINATION [place]PRET[place] [facility] [place] signed by: JON RENNER MD CNOV Observed: 11/29/2017 Status: COMPLETED Source: [place] 10:00 AM [facility] REPOSITORY Office Visit (GENBMI) TASHA DE ([id number]) 1975 F Date Time Provider Department 11/29/17 10:00 AM BELKYS TURNER During your visit today, we recorded the following information about you: Pulse Blood pressure Weight Height 70/minute 117/66 84.4 kg 1.607 m Last Period 07/01/17 Belkys Turner MD 04/03/2018 9:52 AM Addendum Name: Tasha Morrell Jim Index Surgery Date of Surgery: 08/15/2013 Surgeon: Jasmine Dash Surgical Procedure: LAPAROSCOPIC GASTRIC RESTRICTIVE SURG W/ BYPASS AND PATEL-EN-Y </= 150CM Pre-surgical weight: 122.9 kg (271 lb) Override Index Surgery Information? No Other Bariatric Surgeries None Visit: 4 years Today's Visit: Wt 84.4 kg (186 lb) BMI 32.67 kg/m2 BMI 32.67 kg/(m2) Last Visit: Wt: 85.3 kg (188 lb) BMI: 33.02 kg/(m2) Total weight loss: 38.6 kg (85 lb) Maud weight: 66.1 kg (145 lb 12 oz) Excess weight: 56.8 kg (125 lb 4 oz) % of excess body weight lost: 38.6 kg (85 lb) (67.87% of excess weight loss) COMPLICATIONS SINCE LAST VISIT?: NONE DIET INTAKE: tolerates Phase V diet -notes occasional problems with hypoglycemia-craving soda, pop, cereal -believes she is getting enough fluids, however, inadequate protein, believes she is overdoing it on the carbs. DAILY SUPPLEMENTS: Calcium: Calcium Citrate w/ vitamin D (1200 - 1500mg) Multivitamin AND Minerals: yes Iron Supplement: yes Vitamin B12: 500 mcg Vitamin D3: 50K once weekly Other: Biotin 10K daily, Migraine support formula; knockout EXERCISE: not a lot Are you attending any Support Groups? No attendance Current Outpatient Prescriptions: zonisamide (ZONEGRAN) 50 mg capsule Take 50 mg by mouth once daily. oxybutynin (DITROPAN) 5 mg tablet Take 3 tablets by mouth once daily. cholecalciferol, Vitamin D3, (VITAMIN D3) 50,000 unit cap capsule TAKE 1 CAPSULE ONCE A WEEK VITAMIN PLUS LOW IRON 27 mg iron- 1 mg tab TAKE 1 TABLET DAILY Erythromycin-Benzoyl Peroxide (BENZAMYCIN) gel Apply thin layer to entire acne-prone area(s) of face (optional neck and trunk areas but bewareof bleaching clothing) once to twice per day as directed and tolerated. Nystatin, Bulk, 1 billion unit powd 1 application three times daily as needed. rizatriptan (MAXALT) 10 mg tablet Take 1 tablet by mouth as needed. May repeat in 2 hours if needed nystatin (MYCOSTATIN) ointment Apply twice a week to areas prone to rash. hydrOXYzine pamoate (VISTARIL) 25 mg capsule Take 1 capsule by mouth three times daily as needed. montelukast (SINGULAIR) 10 mg tablet Take 1 tablet by mouth daily at bedtime. fexofenadine-pseudoephedrine (NATALYA D) 60-120 mg per tablet Take 1 tablet by mouth twice daily. DITROPAN XL 10 mg 24 hr tablet Take 1 tablet by mouth once daily. fesoterodine (TOVIAZ) 4 mg Tb24 extended release tablet Take 1 tablet by mouth once daily. triamcinolone acetonide (KENALOG) 0.1 % cream Apply 1 application to affected area three times daily. Apply sparingly to area for rash/itching. omeprazole (PRILOSEC) 20 mg capsule TAKE 1 CAPSULE TWICE A DAY ON EMPTY STOMACH levothyroxine (SYNTHROID) 50 mcg tablet TAKE 1 TABLET DAILY COMPOUNDED PRESCRIPTION KNEE HIGH COMPRESSION STOCKINGS 30- 40 MM. DX: EDEMA ascorbic acid (VITAMIN C) 500 mg tablet Take 500 mg by mouth once daily. busPIRone (BUSPAR) 5 mg tablet Take 5 mg by mouth twice daily. TIZANIDINE HCL (TIZANIDINE ORAL) Take by mouth twice daily as needed. CALCIUM CITRATE/VITAMIN D3 (CALCIUM CITRATE + ORAL) Take by mouth. Ferrous Sulfate 325 mg (65 mg iron) tablet Take 1 tablet by mouth daily with breakfast. duloxetine hcl(CYMBALTA 60 MG CAP) Take one tab twice a day No current facility-administered medications for this visit. REVIEW OF SYSTEMS: denies nausea, vomiting, dumping syndrome PHYSICAL EXAM: Gen: NAD, AANDOx3, obese, pleasant, emotional Heent: Throat clear, perrl Heart: RRR Lungs: CTAB Abd: Soft, NT, ND, scars look well-healed Ext: No edema noted A/P: *41 y/o lady status post: Laparoscopic Ptael-en-Y gastric bypass, EGD, and liver biopsy done on: 08/15/[address] Dash 1)status post bariatric surgery. Indicates an eventual, long- term weight loss goal of: 140# Indicates the following as possible challenges to ongoing healthy lifestyle changes: Eating habits Discussed various options for weight loss, including dietary, physical activity, pharmacotherapy, and surgery. We discussed that diet and physical activity remain the foundation and mainstay of any weight loss effort, that medications are modestly effective, and indicated only for adjunctive, and often temporary use to supplement lifestyle changes. We also discussed various diets, including the PSMF. The patient was counseled on the potential side effects of the diet, including but not limited to possible liver and kidney lab abnormalities, potential for gouty attacks, and possible clinical signs and symptoms including but not limited to fatigue, dizziness, nausea, muscle cramps/myalgias, and palpitations. Also advised that this plan most often used temporarily as a jump-start to initiate weight loss, and in conjunction with ongoing physical activity and behavioral changes, prior to transitioning over to a more moderate, higher protein/lower-carb dietary approach. Advised to follow up in 4-6 weeks after beginning the diet with provider of choice, to assess for weight loss, side effects and check labs, specifically, cmp and uric acid. We also discussed(and/or patient was provided written materials for self-review) the following lifestyle/education information: -provided with handout(s) on various dietary approaches, including conservative to more aggressive -provided with a copy of a BMI chart to monitor weight and BMI -encouraged to look into the use of a pedometer to challenge self on daily activity/daily steps -encouraged to record daily dietary and nutrition intake-provided with information on [employer] website/phone [email or web address] After discussion: She is interested in psmf diet discussed-she will talk it over with Water Resources Project Manager. She believes this will be especially helpful bc it will forcer her to stop carbs/sugar/sweet foods and drinks DISPOSITION: Return 3 month to Post-op follow up/ individual office visit EDUCATION: Pt encouraged to continue with positive lifestyle changes and daily/vitamin intake REFERRALS: N/A LABS: Today: none (had labs done previously-these were reviewed) 08/2018: CBC W DIFF, CMP, Vitamin B12, Iron/ TIBC, Lipid panel, TSH, PTH Intact, Folate, 25 Hydroxy and HBA1C Belkys Turner MD - April 03, 2018 ADDENDUM: Note, patient has upcoming appointment on 04/06/2018-not sure if discussed her last CT abdomen results with her or not. If not, will check MRI of the abdomen as per radiology recommendation, and consider referral to her Bariatric surgeon/Dr. Dash, based on whether she has ongoing symptoms, or additional findings on the MRI. AG LABS: Component Latest Ref Rng AND Units 11/25/2017 Protein, Total 6.3 - 8.0 g/dL 6.8 Albumin 3.9 - 4.9 g/dL 4.0 Calcium 8.5 - 10.2 mg/dL 9.3 Bilirubin, Total 0.2 - 1.3 mg/dL 0.3 Alkaline Phosphatase 32 - 117 U/L 69 AST 13 - 35 U/L 21 Glucose 74 - 99 mg/dL 82 BUN 7 - 21 mg/dL 11 Creatinine 0.58 - 0.96 mg/dL 0.71 Sodium 136 - 144 mmol/L 140 Potassium 3.7 - 5.1 mmol/L 4.0 Chloride 97 - 105 mmol/L 101 CO2 22 - 30 mmol/L 26 Anion Gap 9 - 18 mmol/L 13 ALT 7 - 38 U/L 18 eGFR- >60 eGFR-All Other Races . >60 WBC 3.70 - 11.00 k/uL 7.79 RBC 3.90 - 5.20 m/uL 4.57 Hemoglobin 11.5 - 15.5 g/dL 14.4 Hematocrit 36.0 - 46.0 % 43.6 MCV 80.0 - 100.0 fL 95.4 MCH 26.0 - 34.0 pG 31.5 MCHC 30.5 - 36.0 g/dL 33.0 RDW-CV 11.5 - 15.0 % 12.6 Platelet Count 150 - 400 k/uL 268 MPV 9.0 - 12.7 fL 10.3 Absolute nRBC <0.01 k/uL <0.01 Cholesterol, Total <200 mg/dL 220 (H) Triglyceride <150 mg/dL 167 (H) HDL Cholesterol >39 mg/dL 51 LDL Cholesterol <100 mg/dL 136 (H) Non HDL Cholesterol <130 mg/dL 169 (H) Fasting Time hrs 12 VLDL Cholesterol <30 mg/dL 33 (H) TC:HDL Ratio <5.10 4.31 LDL:HDL Ratio <2.54 2.67 (H) Iron 41 - 186 ug/dL 65 TIBC 232 - 386 ug/dL 347 Transferrin Saturation 15 - 57 % 19 Hemoglobin A1C 4.3 - 5.6 % 5.4 Estimated Average Glucose mg/dL 108 Folate >4.7 ng/mL >20.0 Vitamin B12 232 - 1245 pg/mL 1641 (H) TSH 0.400 - 5.500 uU/mL 4.950 Vitamin D 25 Hydroxy 31.0 - 80.0 ng/mL 50.3 (OTHER: -11/23/2016: Ov BMI/Gorty/General Surgery. Copied from note: A/P: 40 y/o lady status post: Laparoscopic Patel-en-Y gastric bypass, EGD, and liver biopsy done on: 08/15/[address] Dash 1)status post bariatric surgery. Indicates an eventual, long- term weight loss goal of: 155# Indicates the following as possible challenges to ongoing healthy lifestyle changes: food DISPOSITION: Return Other as per order for this encounter to Post-op follow up/ individual office visit EDUCATION: Pt encouraged to continue with positive lifestyle changes and daily/vitamin intake REFERRALS: Bariatric surgeon LABS: Today: CBC W DIFF, CMP, Vitamin B12, Iron/ TIBC, Lipid panel, TSH, Folate, 25 Hydroxy and HBA1C In 12 months: CBC W DIFF, CMP, Vitamin B12, Iron/ TIBC, Lipid panel, TSH, Folate, 25 Hydroxy and HBA1C ?convo with patient: -Characteristics: Not crampy, center-close to her belly button region and to the left side of her abdomen; Onset/precipitating: Has been going on over the past year, and has noticed it more over the past 6 months or so; Location: As noted-umbilical and left upper quadrant; Duration/Frequency: A couple of times a week, not a daily thing; Exacerbating factors: None, not related to a particularly with foods, or even after eating; Relieving factors: Nothing seems to help; Related factors: No associated diarrhea, nausea, no bleeding in the stools, no vomiting. -has migraine headaches, and occasionally uses Excedrin to help and wonders if this is contributing to her pain. Tries to use Maxalt first, and then see what she needs to use, and she is concerned about the Excedrin use. ?etiology-will check EGD given concerns for increasing nausea, excedrin use and CT abdomen to further evaluate -should continue f/u with Gyne, PCP and Nutrition and Psychology teams as well -should f/u with surgeon/Dr. Dash-she is agreeable to this. ? ?Belkys Turner MD ?- December 23, 2016 ADDENDUM: Results reviewed. -labs overall non-remarkable, except for hyperlipidemia and elevated B12 level -EGD non-remarkable -CT abnormal, but no acute findings? Tried to call patient to discuss, but no answer. Left vmm asking her to call back. She does have an appt to see Surgeon/Dr. Dash, but would consider checking an MRI of abdomen as per CT report, and consider GI referral as well. Clinic staff to try reaching her as well, and should go to ER if any change/worsening in her sx. AG Radha Morgan Ma 11/29/2017 10:07 AM Signed Body mass index is 32.67 kg/(m2). Referring Provider: BELKYS TURNER [[id number]] Allergies As of Date: 11/29/2017 Noted Allergy Reaction DOXYCYCLINE HCL 01/24/2008 EFFEXOR (VENLAFAXINE HCL) 04/22/2005 5 - Intolerance Comments: WEIGFHT GAIN HCTZ [Other] 04/22/2005 Comments: LOSS OF K+ QUICKLY LIPITOR (ATORVASTATIN CALCIUM) 02/07/2013 14 - Other: See Comments Comments: myalgia PENICILLINS 04/22/2005 2 - Rash PRAVASTATIN 01/17/2013 14 - Other: See Comments Comments: abdominal pain, muscle crampin SILICONE 10/19/2005 [id number] REDUCTASE INHIBIT*04/18/2017 5 - Intolerance TOPAMAX (TOPIRAMATE) 01/17/2013 7 - Swelling ZOCOR (SIMVASTATIN) 03/27/2013 14 - Other: See Comments Comments: Leg muscle pain ZOLOFT (SERTRALINE HCL) 04/22/2005 5 - Intolerance Comments: ANTHONY Date Reviewed: 11/29/2017 Reviewed by: Radha Morgan Ma - Fully Assessed Reason for Visit: Established Patient [175] Primary Visit Diagnosis: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] Other Visit Diagnoses:S/P gastric bypass [Z98.84] Obesity, Class I, BMI 30.0-34.9 (see actual BMI) [E66.9] S/P bariatric surgery [Z98.84] Abnormal weight gain [R63.5] Prescriptions as of 11/29/2017 Sig: ZONISAMIDE 50 MG CAPSULE Take 50 mg by mouth once marta* OXYBUTYNIN CHLORIDE 5 MG TABL* Take 3 tablets by mouth once * CHOLECALCIFEROL (VITAMIN D3) * TAKE 1 CAPSULE ONCE A WEEK VITAMINS PLUS LOW IR* TAKE 1 TABLET DAILY ERYTHROMYCIN-BENZOYL PEROXIDE* Apply thin layer to entire ac* NYSTATIN (BULK) 1 BILLION UNI* 1 application three times mckenna* RIZATRIPTAN 10 MG TABLET Take 1 tablet by mouth as nee* NYSTATIN 100,000 UNIT/GRAM TO* Apply twice a week to areas p* MONTELUKAST 10 MG TABLET Take 1 tablet by mouth daily * X HYDROXYZINE PAMOATE 25 MG CAP* Take 1 capsule by mouth three* FEXOFENADINE 60 MG-PSEUDOEPHE* Take 1 tablet by mouth twice * DITROPAN XL 10 MG TABLET,EXTE* Take 1 tablet by mouth once d* FESOTERODINE ER 4 MG TABLET,E* Take 1 tablet by mouth once d* TRIAMCINOLONE ACETONIDE 0.1 %* Apply 1 application to affect* X OMEPRAZOLE 20 MG CAPSULE,[place]* TAKE 1 CAPSULE TWICE A DAY ON* LEVOTHYROXINE 50 MCG TABLET TAKE 1 TABLET DAILY COMPOUNDED PRESCRIPTION KNEE HIGH COMPRESSION STOCKIN* ASCORBIC ACID (VITAMIN C) 500* Take 500 mg by mouth once mckenna* BUSPIRONE 5 MG TABLET Take 5 mg by mouth twice marta* TIZANIDINE ORAL Take by mouth twice daily as* CALCIUM CITRATE + ORAL Take by mouth. FERROUS SULFATE 325 MG (65 MG* Take 1 tablet by mouth daily * CYMBALTA 60 MG CAPSULE,DELAYE* Take one tab twice a day Problem List As Of Date 11/29/2017 Noted Resolved BENIGN HYPERTENSION [I10] INVALID FOR* IRRITABLE COLON [K58.9] INVALID FOR* ESOPHAGEAL REFLUX [K21.9] INVALID FOR* Lumbago [M54.5] INVALID FOR*04/18/2017 ALLERGIC RHINITIS NOS [J30.9] INVALID FOR* Dysmetabolic syndrome X [E88.81] INVALID FOR*12/03/2013 Rosacea [L71.9] INVALID FOR*04/24/2010 Scanty or infrequent menstruation [N91.5] INVALID FOR*12/03/2013 Candidiasis of skin and nails [B37.2] INVALID FOR*04/18/2017 Postphlebetic syndrome with other complication *INVALID FOR*04/18/2017 Unspecified sleep apnea [G47.30] INVALID FOR*12/03/2013 More... Morbid obesity [E66.01] INVALID FOR*12/03/2013 Other and unspecified hyperlipidemia [E78.5] INVALID FOR* More... 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] INVALID FOR*04/18/2017 Melanocytic Nevus of Trunk: Back [D22.5] INVALID FOR*04/18/2017 Skin tag(s) INVALID FOR*04/18/2017 Viral warts, unspecified [B07.9] INVALID FOR*04/18/2017 Obesity [E66.9] INVALID FOR* Tinea corporis [B35.4] INVALID FOR*04/18/2017 Xerosis cutis [L85.3] INVALID FOR*04/18/2017 Surgical Scar: skin of upper lip [L90.5] INVALID FOR*04/18/2017 Restless legs syndrome [G25.81] INVALID FOR* Vitamin D deficiency [E55.9] INVALID FOR* SAMARIA (obstructive sleep apnea) [G47.33] INVALID FOR*12/03/2013 Hyperpigmentation of skin: under eyelids [L81.9]INVALID FOR*04/18/2017 Irregular menstrual cycle [N92.6] INVALID FOR*12/03/2013 Abdominal pain, left lower quadrant [R10.32] INVALID FOR*12/03/2013 Dysmenorrhea [N94.6] INVALID FOR* Type II or unspecified type diabetes mellitus w*INVALID FOR*12/15/2012 Pain in lower limb [M79.606] INVALID FOR*12/03/2013 Neuralgia, neuritis, and radiculitis, unspecifi*INVALID FOR* Type II or unspecified type diabetes mellitus w*INVALID FOR*12/03/2013 Encounter for dietary counseling and surveillan*INVALID FOR*04/18/2017 History of gastric bypass [Z98.84] INVALID FOR*04/18/2017 Depression [F32.9] INVALID FOR* History of irregular menstrual bleeding [Z87.42]INVALID FOR*04/18/2017 Acne vulgaris: inflammatory grade III (chin and*INVALID FOR*04/18/2017 Dermatofibroma [D23.9] INVALID FOR*04/18/2017 Melanocytic nevi of trunk [D22.5] INVALID FOR*04/18/2017 Sebaceous hyperplasia [L73.8] INVALID FOR*04/18/2017 Milial cyst [L72.0] INVALID FOR*04/18/2017 Migraine headache [G43.909] INVALID FOR* CRPS (complex regional pain syndrome) (HCC) [IM*INVALID FOR* 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 [D*INVALID FOR*04/18/2017 Atypical nevus of flank [D22.5] INVALID FOR*04/18/2017 Medication overuse headache [G44.40] INVALID FOR*04/18/2017 Migraine without aura [G43.009] INVALID FOR* Overactive bladder [N32.81] INVALID FOR* Acquired hypothyroidism [E03.9] INVALID FOR* Hypoproteinemia (HCC) [E77.8] INVALID FOR*09/09/2016 Hyponatremia [E87.1] INVALID FOR*09/09/2016 Strain of right knee and leg [S86.911A] INVALID FOR*04/18/2017 Visit Notes: >> Radha Victoria Nov 29, 2017 10:02 AM Status: Signed Body mass index is 32.67 kg/(m2). Disposition: Return in about 3 months (around 03/01/2018) for follow up. Follow-up and Disposition History Recorded Encounter Status:Closed by BELKYS TURNER MD on 12/19/17 PROGRESS Observed: 11/29/2017 Status: COMPLETED Source: [place] 8:25 AM [facility] [place] REPOSITORY O ID: [id number] Author: Belkys Turner Service: (none) Author Type: Physician Type: Progress Notes Filed: 04/03/2018 9:52 AM Note Text: Name: Tasha De Index Surgery Date of Surgery: 08/15/2013 Surgeon: Jasmine Dahs Surgical Procedure: LAPAROSCOPIC GASTRIC RESTRICTIVE SURG W/ BYPASS AND PATEL-EN-Y </= 150CM Pre-surgical weight: 122.9 kg (271 lb) Override Index Surgery Information? No Other Bariatric Surgeries None Visit: 4 years Today's Visit: Wt 84.4 kg (186 lb) BMI 32.67 kg/m2 BMI 32.67 kg/(m2) Last Visit: Wt: 85.3 kg (188 lb) BMI: 33.02 kg/(m2) Total weight loss: 38.6 kg (85 lb) Maud weight: 66.1 kg (145 lb 12 oz) Excess weight: 56.8 kg (125 lb 4 oz) % of excess body weight lost: 38.6 kg (85 lb) (67.87% of excess weight loss) COMPLICATIONS SINCE LAST VISIT?: NONE DIET INTAKE: tolerates Phase V diet -notes occasional problems with hypoglycemia-craving soda, pop, cereal -believes she is getting enough fluids, however, inadequate protein, believes she is overdoing it on the carbs. DAILY SUPPLEMENTS: Calcium: Calcium Citrate w/ vitamin D (1200 - 1500mg) Multivitamin AND Minerals: yes Iron Supplement: yes Vitamin B12: 500 mcg Vitamin D3: 50K once weekly Other: Biotin 10K daily, Migraine support formula; knockout EXERCISE: not a lot Are you attending any Support Groups? No attendance Current Outpatient Prescriptions: zonisamide (ZONEGRAN) 50 mg capsule Take 50 mg by mouth once daily. oxybutynin (DITROPAN) 5 mg tablet Take 3 tablets by mouth once daily. cholecalciferol, Vitamin D3, (VITAMIN D3) 50,000 unit cap capsule TAKE 1 CAPSULE ONCE A WEEK VITAMIN PLUS LOW IRON 27 mg iron- 1 mg tab TAKE 1 TABLET DAILY Erythromycin-Benzoyl Peroxide (BENZAMYCIN) gel Apply thin layer to entire acne-prone area(s) of face (optional neck and trunk areas but bewareof bleaching clothing) once to twice per day as directed and tolerated. Nystatin, Bulk, 1 billion unit powd 1 application three times daily as needed. rizatriptan (MAXALT) 10 mg tablet Take 1 tablet by mouth as needed. May repeat in 2 hours if needed nystatin (MYCOSTATIN) ointment Apply twice a week to areas prone to rash. hydrOXYzine pamoate (VISTARIL) 25 mg capsule Take 1 capsule by mouth three times daily as needed. montelukast (SINGULAIR) 10 mg tablet Take 1 tablet by mouth daily at bedtime. fexofenadine-pseudoephedrine (NATALYA D) 60-120 mg per tablet Take 1 tablet by mouth twice daily. DITROPAN XL 10 mg 24 hr tablet Take 1 tablet by mouth once daily. fesoterodine (TOVIAZ) 4 mg Tb24 extended release tablet Take 1 tablet by mouth once daily. triamcinolone acetonide (KENALOG) 0.1 % cream Apply 1 application to affected area three times daily. Apply sparingly to area for rash/itching. omeprazole (PRILOSEC) 20 mg capsule TAKE 1 CAPSULE TWICE A DAY ON EMPTY STOMACH levothyroxine (SYNTHROID) 50 mcg tablet TAKE 1 TABLET DAILY COMPOUNDED PRESCRIPTION KNEE HIGH COMPRESSION STOCKINGS 30- 40 MM. DX: EDEMA ascorbic acid (VITAMIN C) 500 mg tablet Take 500 mg by mouth once daily. busPIRone (BUSPAR) 5 mg tablet Take 5 mg by mouth twice daily. TIZANIDINE HCL (TIZANIDINE ORAL) Take by mouth twice daily as needed. CALCIUM CITRATE/VITAMIN D3 (CALCIUM CITRATE + ORAL) Take by mouth. Ferrous Sulfate 325 mg (65 mg iron) tablet Take 1 tablet by mouth daily with breakfast. duloxetine hcl(CYMBALTA 60 MG CAP) Take one tab twice a day No current facility-administered medications for this visit. REVIEW OF SYSTEMS: denies nausea, vomiting, dumping syndrome PHYSICAL EXAM: Gen: NAD, AANDOx3, obese, pleasant, emotional Heent: Throat clear, perrl Heart: RRR Lungs: CTAB Abd: Soft, NT, ND, scars look well-healed Ext: No edema noted A/P: *41 y/o lady status post: Laparoscopic Patel-en-Y gastric bypass, EGD, and liver biopsy done on: 08/15/[address] Dash 1)status post bariatric surgery. Indicates an eventual, long- term weight loss goal of: 140# Indicates the following as possible challenges to ongoing healthy lifestyle changes: Eating habits Discussed various options for weight loss, including dietary, physical activity, pharmacotherapy, and surgery. We discussed that diet and physical activity remain the foundation and mainstay of any weight loss effort, that medications are modestly effective, and indicated only for adjunctive, and often temporary use to supplement lifestyle changes. We also discussed various diets, including the PSMF. The patient was counseled on the potential side effects of the diet, including but not limited to possible liver and kidney lab abnormalities, potential for gouty attacks, and possible clinical signs and symptoms including but not limited to fatigue, dizziness, nausea, muscle cramps/myalgias, and palpitations. Also advised that this plan most often used temporarily as a jump-start to initiate weight loss, and in conjunction with ongoing physical activity and behavioral changes, prior to transitioning over to a more moderate, higher protein/lower-carb dietary approach. Advised to follow up in 4-6 weeks after beginning the diet with provider of choice, to assess for weight loss, side effects and check labs, specifically, cmp and uric acid. We also discussed(and/or patient was provided written materials for self-review) the following lifestyle/education information: -provided with handout(s) on various dietary approaches, including conservative to more aggressive -provided with a copy of a BMI chart to monitor weight and BMI -encouraged to look into the use of a pedometer to challenge self on daily activity/daily steps -encouraged to record daily dietary and nutrition intake-provided with information on [employer] website/phone [email or web address] After discussion: She is interested in psmf diet discussed-she will talk it over with [employer] Project Manager. She believes this will be especially helpful bc it will forcer her to stop carbs/sugar/sweet foods and drinks DISPOSITION: Return 3 month to Post-op follow up/ individual office visit EDUCATION: Pt encouraged to continue with positive lifestyle changes and daily/vitamin intake REFERRALS: N/A LABS: Today: none (had labs done previously-these were reviewed) 08/2018: CBC W DIFF, CMP, Vitamin B12, Iron/ TIBC, Lipid panel, TSH, PTH Intact, Folate, 25 Hydroxy and HBA1C Belkys Turner MD - April 03, 2018 ADDENDUM: Note, patient has upcoming appointment on 04/06/2018-not sure if discussed her last CT abdomen results with her or not. If not, will check MRI of the abdomen as per radiology recommendation, and consider referral to her Bariatric surgeon/Dr. Dash, based on whether she has ongoing symptoms, or additional findings on the MRI. AG LABS: Component Latest Ref Rng AND Units 11/25/2017 Protein, Total 6.3 - 8.0 g/dL 6.8 Albumin 3.9 - 4.9 g/dL 4.0 Calcium 8.5 - 10.2 mg/dL 9.3 Bilirubin, Total 0.2 - 1.3 mg/dL 0.3 Alkaline Phosphatase 32 - 117 U/L 69 AST 13 - 35 U/L 21 Glucose 74 - 99 mg/dL 82 BUN 7 - 21 mg/dL 11 Creatinine 0.58 - 0.96 mg/dL 0.71 Sodium 136 - 144 mmol/L 140 Potassium 3.7 - 5.1 mmol/L 4.0 Chloride 97 - 105 mmol/L 101 CO2 22 - 30 mmol/L 26 Anion Gap 9 - 18 mmol/L 13 ALT 7 - 38 U/L 18 eGFR- >60 eGFR-All Other Races . >60 WBC 3.70 - 11.00 k/uL 7.79 RBC 3.90 - 5.20 m/uL 4.57 Hemoglobin 11.5 - 15.5 g/dL 14.4 Hematocrit 36.0 - 46.0 % 43.6 MCV 80.0 - 100.0 fL 95.4 MCH 26.0 - 34.0 pG 31.5 MCHC 30.5 - 36.0 g/dL 33.0 RDW-CV 11.5 - 15.0 % 12.6 Platelet Count 150 - 400 k/uL 268 MPV 9.0 - 12.7 fL 10.3 Absolute nRBC <0.01 k/uL <0.01 Cholesterol, Total <200 mg/dL 220 (H) Triglyceride <150 mg/dL 167 (H) HDL Cholesterol >39 mg/dL 51 LDL Cholesterol <100 mg/dL 136 (H) Non HDL Cholesterol <130 mg/dL 169 (H) Fasting Time hrs 12 VLDL Cholesterol <30 mg/dL 33 (H) TC:HDL Ratio <5.10 4.31 LDL:HDL Ratio <2.54 2.67 (H) Iron 41 - 186 ug/dL 65 TIBC 232 - 386 ug/dL 347 Transferrin Saturation 15 - 57 % 19 Hemoglobin A1C 4.3 - 5.6 % 5.4 Estimated Average Glucose mg/dL 108 Folate >4.7 ng/mL >20.0 Vitamin B12 232 - 1245 pg/mL 1641 (H) TSH 0.400 - 5.500 uU/mL 4.950 Vitamin D 25 Hydroxy 31.0 - 80.0 ng/mL 50.3 (OTHER: -11/23/2016: Ov BMI/Gorty/General Surgery. Copied from note: A/P: 40 y/o lady status post: Laparoscopic Patel-en-Y gastric bypass, EGD, and liver biopsy done on: 08/15/[address] Dash 1)status post bariatric surgery. Indicates an eventual, long- term weight loss goal of: 155# Indicates the following as possible challenges to ongoing healthy lifestyle changes: food DISPOSITION: Return Other as per order for this encounter to Post-op follow up/ individual office visit EDUCATION: Pt encouraged to continue with positive lifestyle changes and daily/vitamin intake REFERRALS: Bariatric surgeon LABS: Today: CBC W DIFF, CMP, Vitamin B12, Iron/ TIBC, Lipid panel, TSH, Folate, 25 Hydroxy and HBA1C In 12 months: CBC W DIFF, CMP, Vitamin B12, Iron/ TIBC, Lipid panel, TSH, Folate, 25 Hydroxy and HBA1C ?convo with patient: -Characteristics: Not crampy, center-close to her belly button region and to the left side of her abdomen; Onset/precipitating: Has been going on over the past year, and has noticed it more over the past 6 months or so; Location: As noted-umbilical and left upper quadrant; Duration/Frequency: A couple of times a week, not a daily thing; Exacerbating factors: None, not related to a particularly with foods, or even after eating; Relieving factors: Nothing seems to help; Related factors: No associated diarrhea, nausea, no bleeding in the stools, no vomiting. -has migraine headaches, and occasionally uses Excedrin to help and wonders if this is contributing to her pain. Tries to use Maxalt first, and then see what she needs to use, and she is concerned about the Excedrin use. ?etiology-will check EGD given concerns for increasing nausea, excedrin use and CT abdomen to further evaluate -should continue f/u with Gyne, PCP and Nutrition and Psychology teams as well -should f/u with surgeon/Dr. Dash-she is agreeable to this. ? ?Belkys Turner MD ?- December 23, 2016 ADDENDUM: Results reviewed. -labs overall non-remarkable, except for hyperlipidemia and elevated B12 level -EGD non-remarkable -CT abnormal, but no acute findings? Tried to call patient to discuss, but no answer. Left vmm asking her to call back. She does have an appt to see Surgeon/Dr. Dash, but would consider checking an MRI of abdomen as per CT report, and consider GI referral as well. Clinic staff to try reaching her as well, and should go to ER if any change/worsening in her sx. AG BASIC METABOLIC PANEL Collected: 11/28/2017 Status: F Source: SIMS 3:00 PM [facility] REPOSITORY TYPE CODE TESTS RESULT OUT OF REFERENCE UNITS RANGE LAB GLU(LOINC) 74 - 99 mg/dL GLUCOSE 88 LAB SOD(LOINC) 136 - 145 mmol/L SODIUM 139 LAB K(LOINC) 3.5 - 5.3 mmol/L POTASSIUM 4.1 LAB CHLOR(LOIN 98 - 107 mmol/L C) CHLORIDE 103 LAB BIC(LOINC) 21 - 32 mmol/L BICARBONATE 28 LAB ANGAP(LOIN 10 - 20 mmol/L C) ANION GAP 12 LAB UREA(LOINC 6 - 23 mg/dL ) UREA NITROGEN 7 LAB CREA(LOINC 0.50 - 1.05 mg/dL ) CREATININE 0.62 LAB GFRFN(LOIN >60 mL/min/1.7 C) 3m2 GFR-NON AM. >60 LAB GFRAA(LOIN >60 mL/min/1.7 C) 3m2 GFR- AM. >60 Result Comment: CALCULATIONS OF ESTIMATED GFR ARE PERFORMED USING THE MDRD STUDY EQUATION FOR THE IDMS-TRACEABLE CREATININE METHODS. CLIN CHEM 2007;53:766-72 LAB CA(LOINC) 8.6 - 10.6 mg/dL CALCIUM 9.3 Performed By: #### BMP #### [facility] [address] [place] [address] CBC Collected: 11/25/2017 Status: F Source: [place] 8:06 AM [facility] REPOSITORY TYPE CODE TESTS RESULT OUT OF REFERENCE UNITS RANGE LAB WBC 3.70-11.00 k/uL WBC 7.79 LAB RBC 3.90-5.20 m/uL RBC 4.57 LAB HGB 11.5-15.5 g/dL Hemoglobin 14.4 LAB HCT 36.0-46.0 % Hematocrit 43.6 LAB MCV 80.0-100.0 fL MCV 95.4 LAB MCH 26.0-34.0 pG MCH 31.5 LAB MCHC 30.5-36.0 g/dL MCHC 33.0 LAB RDWCV 11.5-15.0 % RDW-CV 12.6 LAB PLTCT 150-400 k/uL Platelet Count 268 LAB MPV 9.0-12.7 fL MPV 10.3 LAB ABSNUC <0.01 k/uL Absolute nRBC <0.01 Performed By: #### CBC, IRON, B12, CMP, LIPB, TSH, HBA1C, VITD #### [facility] [address] [place] [address] IRON AND TIBC Collected: 11/25/2017 Status: F Source: [place] 8:06 AM [facility] REPOSITORY TYPE CODE TESTS RESULT OUT OF REFERENCE UNITS RANGE LAB IRN 41-186 ug/dL Iron 65 LAB TIBC 232-386 ug/dL TIBC 347 LAB SAT 15-57 % Transferrin Saturatn 19 Performed By: #### CBC, IRON, B12, CMP, LIPB, TSH, HBA1C, VITD #### [facility] [address] [place], [place] [address] VITAMIN B12 Collected: 11/25/2017 Status: F Source: [place] 8:06 AM [facility] REPOSITORY TYPE CODE TESTS RESULT OUT OF REFERENCE UNITS RANGE LAB B12 232-1245 pg/mL High Vitamin B12 1641 Performed By: #### CBC, IRON, B12, CMP, LIPB, TSH, HBA1C, VITD #### [facility] [address] [place], [place] [address] COMP METABOLIC PANEL Collected: 11/25/2017 Status: F Source: [place] 8:06 AM [facility] REPOSITORY TYPE CODE TESTS RESULT OUT OF REFERENCE UNITS RANGE LAB TP 6.3-8.0 g/dL Protein, Total 6.8 LAB ALB 3.9-4.9 g/dL Albumin 4.0 LAB CA 8.5-10.2 mg/dL Calcium, Total 9.3 LAB TBIL 0.2-1.3 mg/dL Bilirubin, Total 0.3 LAB ALKP 32-117 U/L Alkaline Phosphatase 69 LAB AST 13-35 U/L AST 21 LAB GLU 74-99 mg/dL Glucose 82 Result Comment: The [place] Diabetes Association (ADA) provides guidance for cutoff values for fasting glucose and random glucose. The ADA defines fasting as no caloric intake for at least 8 hours. Fas ting plasma glucose results between 100 to 125 mg/dL indicate increased risk for diabetes (prediabetes). Fasting plasma glucose results greater than or equal to 126 mg/dL meet the criteria for diagnosis of diabetes. In the absence of unequivocal hyperglycemia, results should be confirmed by repeat testing. In a patient with classic symptoms of hyperglycemia or hyperglycemic crisis, random plasma glucose results greater than or equal to 200 mg/dL meet the criteria for diagnosis of diabetes. Reference: Standards of Medical Care in Diabetes 2016, [place] Diabetes Association. Diabetes Care. 2016.39(Suppl 1). LAB BUN 7-21 mg/dL BUN 11 LAB CRET 0.58-0.96 mg/dL Creatinine 0.71 LAB NA 136-144 mmol/L Sodium 140 LAB K 3.7-5.1 mmol/L Potassium 4.0 LAB CL 97-105 mmol/L Chloride 101 LAB CO2 22-30 mmol/L CO2 26 LAB AGAP 9-18 mmol/L Anion Gap 13 LAB ALT 7-38 U/L ALT 18 LAB GFRAA eGFR- Amer. >60 LAB GFRNAA . eGFR-All Other Races >60 Result Comment: eGFR (Estimated GFR) Units of measure: mL/min/1.73 meters squared eGFR is derived from the reexpressed MDRD Study equation using the following parameters: serum creatinine, age, gender and race. The creatinine assay has been calibrated to be traceable to IDMS. An eGFR <60 mL/min/1.73m2 for >3 months is consistent with chronic kidney disease. Refer to KDOQI guidelines for clinical interpretation. In patients with unstable renal function, e.g. those with acute kidney injury, the eGFR may not accurately reflect actual GFR. Performed By: #### CBC, IRON, B12, CMP, LIPB, TSH, HBA1C, VITD #### [facility] [address] [place], [place] [address] LIPID PANEL, BASIC Collected: 11/25/2017 Status: F Source: R[place] 8:06 AM [facility] REPOSITORY TYPE CODE TESTS RESULT OUT OF REFERENCE UNITS RANGE LAB CHOL <200 mg/dL Cholesterol High 220 Result Comment: <200 mg/dL, Desirable 200-239 mg/dL, Borderline high >239 mg/dL, High LAB TRIGLY <150 mg/dL Triglyceride High 167 Result Comment: <150 mg/dL, Normal 150-199 mg/dL, Borderline high 200-499 mg/dL, High >499 mg/dL, Very high LAB HDL >39 mg/dL HDL-Cholesterol 51 Result Comment: 40-59 mg/dL, Acceptable >59 mg/dL, High: Negative risk factor for coronary heart disease <40 mg/dL, Low: Positive risk factor for coronary heart disease LAB LDL <100 mg/dL LDL-Cholesterol High 136 Result Comment: <100 mg/dL, Optimal 100-129 mg/dL, Near optimal/above optimal 130-159 mg/dL, Borderline high 160-189 mg/dL, High >189 mg/dL, Very high Secondary prevention optimal LDL Cholesterol levels are recommended to be < 70 mg/dL LAB NONHDL <130 mg/dL Non HDL High Cholesterol 169 Result Comment: <130 mg/dL, Optimal 130-159 mg/dL, Near optimal/above optimal 160-189 mg/dL, Borderline high 190-219 mg/dL, High >219 mg/dL, Very high Secondary prevention optimal non HDL Cholesterol levels are recommended to be < 100 mg/dL LAB FT hrs Fasting Time 12 LAB VLDL <30 mg/dL High VLDL Cholesterol 33 LAB TCHDL <5.10 TC:HDL Ratio 4.31 LAB LDLHDL <2.54 High LDL:HDL Ratio 2.67 Result Comment: Reference: 1. National Cholesterol Education Program ATP III Guideline At-A-Glance Quick Desk Reference: National Heart, Lung, and Blood Harbinger. National Institutes of Health. 2001: NIH Publication No. 01-3305. 2. An International Atherosclerosis Society position paper: global recommendations for the management of dyslipidemia: executive summary, Atherosclerosis. 2014: 232(2):410-413. Performed By: #### CBC, IRON, B12, CMP, LIPB, TSH, HBA1C, VITD #### [facility] [address], [place] [address] TSH Collected: 11/25/2017 Status: F Source: [place] 8:06 AM [facility] REPOSITORY TYPE CODE TESTS RESULT OUT OF RANGE REFERENCE UNITS LAB TSH 0.400-5.500 uU/mL TSH 4.950 Result Comment: If the patient is , TSH reference range varies by gestational period: First Trimester 0.100-2.500 uU/mL Second Trimester 0.200-3.000 uU/mL Third Trimester 0.300-3.000 uU/mL References: 1. Hicks L, Liset M, Randal ESPOSITO, et al. Management of Thyroid Dysfunction during and : An Endocrine Society Clinical Practice Guideline. J Clin Endocrinol Metab, 2012:97:8029-4487. 2. Vinod BL[place]. Overview of thyroid disease in . UpToDate. 2016. Accessed on February 27, 2016. Performed By: #### CBC, IRON, B12, CMP, LIPB, TSH, HBA1C, VITD #### [facility] [address] [place] [id number] HEMOGLOBIN A1C Collected: 11/25/2017 Status: F Source: RIC[place]AND 8:06 [facility] REPOSITORY TYPE CODE TESTS RESULT OUT OF REFERENCE UNITS RANGE LAB HGBA1C 4.3-5.6 % Hemoglobin A1c 5.4 LAB HBA0 mg/dL Est. Average Glucose 108 Result Comment: eAG: (Estimated average glucose) is a calculated value from HgbA1c and is investment representative of the average blood glucose level in the last 2-3 month period. Performed By: #### CBC, IRON, B12, CMP, LIPB, TSH, HBA1C, VITD #### [facility] [address] [place], [place] [id number] VITAMIN D 25 HYDROXY Collected: 11/25/2017 Status: F Source: [place] 8:06 AM [facility] REPOSITORY TYPE CODE TESTS RESULT OUT OF REFERENCE UNITS RANGE LAB VITD 31.0-80.0 ng/mL Vitamin D 25 50.3 Hydroxy Result Comment: Classification of 25 [place] Vitamin D status: Insufficiency/Moderate Deficiency: < or = 30 ng/mL Sufficiency/Optimal Levels: 31 to 80 ng/mL Toxicity: > 100 ng/mL Test performed by chemiluminescent immunoassay. Performed By: #### CBC, IRON, B12, CMP, LIPB, TSH, HBA1C, VITD #### [facility] [address], [place] [address] FOLATE, SERUM Collected: 11/25/2017 Status: F Source: [place] 8:06 AM [facility] REPOSITORY TYPE CODE TESTS RESULT OUT OF REFERENCE UNITS RANGE LAB SERFOL >4.7 ng/mL Folate, >20.0 Serum Result Comment: A result of > 20 ng/mL is not necessarily indicative of a pathologic or treatable condition: it reflects a limitation of the test methodology. Assay reference range: 4.8 to 24.2 ng/mL. Suitable for detection of folate deficiency. Reference: Folate III (Folate III) [package insert V 1.0 Niuean]. Woody Capriza, [place], [place]: July 2015. Performed By: #### SERFOL #### [facility] [address], [place] [address] CBC W/DIFF, AUTOMATED Collected: 11/03/2017 Status: F Source: MILLI 3:58 PM [facility] REPOSITORY TYPE CODE TESTS RESULT OUT OF RANGE REFERENCE UNITS LAB L100.1000 4.4-11.0 K/mm3 Normal WBC 8.2 LAB L100.1200 4.2-5.4 M/mm3 Normal RBC 4.31 LAB L100.1300 12.0-15.0 g/dl Normal HGB 13.8 LAB L100.1400 37-47 % Normal HCT 40.7 LAB L100.1500 81-99 fL Normal MCV 94.4 LAB L100.1600 27.0-32.0 pg Normal MCH 32.0 LAB L100.1700 32-36 g/gl Normal MCHC 33.9 LAB L100.1810 11.6-14.6 % Normal RDW CV 12.7 LAB L100.1820 35.1-43.9 fl Normal RDW SD 42.8 LAB L100.1900 150-450 K/mm3 Normal PLT 281 LAB L100.2000 6.2-12.0 fl Normal MPV 10.1 LAB L100.2100 47-70 % Normal NEUT% 69.7 LAB L100.2200 19-41 % Normal LY% 22.4 LAB L100.2300 0-10 % Normal MONO% 5.5 LAB L100.2400 0-5 % Normal EO% 1.9 LAB L100.2500 0-1 % Normal BASO% 0.4 LAB L100.2550 0.0-0.9 % Normal IM GRAN % 0.100 Result Comment: IG% - Immature Granulocytes (promyelocytes, myelocytes and metamyelocytes) > 1% indicates that a LEFT SHIFT is Present. LAB L100.2620 2.0-7.7 X10 3/uL Normal Absolute Neut 5.7 LAB L100.2720 0.83-4.51 X10 3/ul Normal Absolute Lymph 1.84 Performed By: #### L100.0100 #### [facility] [address] [place], [address] FREE T3 Collected: 11/03/2017 Status: F Source: [place] 3:58 PM [facility] REPOSITORY TYPE CODE TESTS RESULT OUT OF RANGE REFERENCE UNITS LAB L501.00691 2.18-3.98 pg/mL Normal FREE T3 2.3 Performed By: #### L501.48961, L501.9310, L501.9520 #### [facility] [address] [place], [address] T4 TOTAL, THYROXIN Collected: 11/03/2017 Status: F Source: [place] 3:58 PM [facility] REPOSITORY TYPE CODE TESTS RESULT OUT OF RANGE REFERENCE UNITS LAB L501.9310 4.8-13.9 ug/dL T4 Normal THYROXIN 9.2 Performed By: #### L501.99154, L501.9310, L501.9520 #### [facility] [address] [place], [address] THYROID STIM HORMONE Collected: 11/03/2017 Status: F Source: [place] (TSH) 3:58 PM [facility] REPOSITORY TYPE CODE TESTS RESULT OUT OF RANGE REFERENCE UNITS LAB L501.9520 0.358-3.74 uIU/mL Normal TSH 2.80 Performed By: #### L501.56129, L501.9310, L501.9599 #### [facility] [address], [address] ALLERGIES ALLERGIES DATE TYPE / CODE NAME / CODE REACTION SEVERITY SOURCE Drug Penicillins/F0010 Rash Unknown [place] 8 Allergy/857856073( 52031(RXNORM) Community SNOM[facility]) Hospital Repository Drug hydrochlorothiazi Other Unknown [place] 8 Allergy/435185920( de/[id number](RXN Community SNOMED CT) ORM) Hospital Repository Drug doxycycline/F0060 Other Unknown [place] 8 Allergy/162501597( 99925(RXNORM) Community SNOM[facility]) Hospital Repository Drug topiramate/R68041 Chest tightness Unknown [place] 8 Allergy/465873123( 5453(RXNORM) Community SNOMED CT) Hospital Repository Drug silicone/C2085586 Rash Unknown [place] 8 Allergy/268528734( 00(RXNORM) Community SNOMED CT) Hospital Repository Drug LRYBAWA-JDF-GFX INTOLERANCE [place] Class/017908884(SN REDUCTASE Clinic Main OMED CT) INHIBITORS [place] Repository DRUG SIMVASTATIN OTHER: SEE [facility] 3 INGREDI/117614034( Clinic Main SNOMED CT) [place] Repository DRUG ATORVASTATIN OTHER: SEE C [place] 3 INGREDI/236732719( CALCIUM Clinic Main SNOMED CT) [place] Repository DRUG PRAVASTATIN OTHER: SEE C [place] 3 INGREDI/972950324( Clinic Main SNOMED CT) [place] Repository DRUG TOPIRAMATE SWELLING [place] 3 INGREDI/391190783( Clinic Main SNOMED CT) [place] Repository DRUG DOXYCYCLINE HCL [place] 8 INGREDI/212707624( Clinic Main SNOMED CT) [place] Repository DRUG SILICONE [place] 6 INGREDI/693879879( Clinic Main SNOMED CT) [place] Repository DRUG VENLAFAXINE HCL INTOLERANCE [place] 5 INGREDI/013729811( Clinic Main SNOMED CT) [place] Repository Miscellaneous OTHER [place] [address] Allergy/477234284( [facility] Main SNOMED CT) [place] Repository Drug PENICILLINS RASH [place] 5 Class/394974488(SN [facility] Main OMED CT) [place] Repository DRUG SERTRALINE HCL INTOLERANCE [place] 5 INGREDI/013669338( [facility] Main SNOMED CT) [place] Repository ENCOUNTERS ENCOUNTERS ADMIT/DISCHARGE ACCOUNT ADMITTING ENCOUNTER LOCATION SOURCE NUMBER CLASS 08/25/2018/08/25/20 [id number] Ambulatory BMSBuilding:B [place] 18 MS.[facility] Repository 08/25/2018 [id number] Ambulatory [facility] Hospital ing:OPBI Repository 08/24/2018/08/24/20 [id number] Ambulatory [address] Repository 08/24/2018/08/24/20 [id number] Ambulatory [address] Repository 08/24/2018 [id number] [facility] [place] g:H.[facility] Repository 08/18/2018/08/18/20 [id number] Ambulatory BMSBuilding:B [place] 18 [facility] Repository 08/11/2018 [id number] Ambulatory [facility] Hospital ing:LABSPEC Repository 08/11/2018/08/11/20 [id number] Ambulatory BMSBuilding:B [place] 18 [facility] Repository 07/27/2018 [id number] [facility] ing[facility] Repository 07/27/2018/07/27/20 [id number] Ambulatory BMSBuilding:B [place] 18 [facility] Repository 07/24/2018 [id number] [facility] [place] g:H.[facility] Repository 07/20/2018 [id number] Ambulatory [facility] Hospital ing:LABSPEC Repository 07/20/2018/07/20/20 [id number] Ambulatory BMSBuilding:B [place] 18 [facility] Repository 07/18/2018/07/18/20 [id number] Ambulatory BMSBuilding:B [place] 18 [facility] Repository 07/10/2018/07/10/20 [id number] Ambulatory BMSBuilding:B [place] 18 [facility] Repository 06/29/[id number] [facility] Medical Encounter [facility] [place] g:H.[facility] Repository 06/27/2018/06/27/20 [id number] Ambulatory BMSBuilding:B [place] 18 [facility] Repository 06/22/[id number] [facility] Medical Encounter [facility] [place] g:H.[facility]J Repository 06/19/2018/06/19/20 [id number] Ambulatory BMSBuilding:B [place] 18 [facility] Repository 06/15/[id number] [facility] Medical Encounter [facility] [place] g:H.[facility] Repository 06/09/2018 [id number] [facility] [place] g:H.[facility] Repository 06/01/2018 [id number] Ambulatory [facility] Hospital ing:LABSPEC Repository 06/01/2018/06/01/20 [id number] Ambulatory BMSBuilding:B [place] 18 [facility] Repository 05/16/2018/05/16/20 [id number] Ambulatory BMSBuilding:B [place] 18 [facility] Repository 05/08/2018/05/08/20 [id number] Ambulatory BMSBuilding:B [place] 18 [facility] Repository 05/03/2018 [id number] Ambulatory [facility] Hospital ing:LAB Repository 04/17/2018/04/18/20 [id number] Ambulatory [address] Repository 04/12/2018 [id number] [facility], Ambulatory [address] [place] [address] Repository 04/06/2018/04/06/20 [id number] Ambulatory [address] Repository 04/06/2018/04/10/20 [id number] Ambulatory [address] Repository 03/24/2018 [id number] [facility] ing:LABSPEC Repository 02/10/2018/02/11/20 [id number] Ambulatory [address] Repository 02/10/2018/02/14/20 [id number] Ambulatory [address] Repository 01/31/2018 [id number] Ambulatory [facility] [place] g:H.[facility]J Repository 01/20/2018 [id number] Ambulatory [facility] [place] g:H.[facility]J Repository 01/19/2018/01/21/20 [id number] Ambulatory [address] Repository 12/22/2017/12/23/19 [id number] Ambulatory [address] Repository 12/13/[id number] [facility] Repository 11/29/2017/12/20/19 [id number] Ambulatory [address] Repository 11/25/2017/11/26/19 [id number] Ambulatory [address] Repository 11/03/2017 [id number] [facility] ing:MFPLAB Repository PAYERS PAYERS ENCOUNTER GUARANTOR PAYER SUBSCRIBER SOURCE 08/25/2018 TASHA DE Insurance:MYCARE CRSC SHUCKDOB: [address] *IN [facility] [id number] Number: Repository [id number]: 330 [id number] [phone] () Date:[id number] [facility] [address] [place] [address]JG: 08/25/2018 Secondary NOT GIVENUNK [place] Insurance:SELF PAY [place] Number: Effective Repository Date:2018-08-25 08/25/2018 TASHA Morrell Primary TASHA DE Insurance:MYCARE CRSC SHUCKDOB: [address] *[place] [facility] [id number] Number: Repository [id number]: 330 [id number] [phone] (HP) Date:[id number] CLAIMS [address], [place] [address]PB: 08/25/2018 Secondary NOT GIVENUNK [place] Insurance:SELF PAY [place] Number: Effective Repository Date:2018-07-11 08/24/2018 TASHA Primary Insurance:[facility] TASHA ANDERSONUNK [facility] [id number] [facility] Number: [place]ository [place] [address]Zzq: [id number] Date:[id number] [address] () [place], [place] [address]AI: [id number] 08/18/2018 TASHA L Primary TASHA L [place] [id number] Insurance:MYCARE CRSC ANDERSONDOB: [facility], *IN [facility] [id number] [address]Jdd: Number: Repository [id number] () Date:[id number] CLAIMS [address], [place] [address]XU: 08/18/2018 Secondary NOT GIVENUNK [place] Insurance:SELF PAY [place] Number: Effective Repository Date:2018-08-17 08/11/2018 TASHA L Primary TASHA L [place] [id number] Insurance:MYCARE CRSC ANDERSONDOB: [facility], *IN [facility] [id number] [address]Yrc: Number: Repository [id number] () Date:[id number] CLAIMS [address], [place] [address]ZA: 08/11/2018 Secondary NOT GIVENUNK [place] Insurance:SELF PAY [place] Number: Effective Repository Date:2018-08-11 08/11/2018 TASHA L Primary TASHA L Pratts [id number] Insurance:[facility]ARE CRSC ANDERSONDOB: [facility], *[place] [facility] [id number] Hospital [address]Rqw: Number: Repository [id number] (HP) Date:5243-44-92DASL [address]S [address], [place] [address]ZZ: 08/11/2018 Secondary NOT GIVENUNK [place] Insurance:SELF PAY [place] Number: Effective Repository Date:2018-08-02 07/27/2018 TASHA L Primary TASHA L Milli [id number] Insurance:MYCARE CRSC ANDERSONDOB: [facility], *[place] [facility] [id number] Hospital [address]Mjk: Number: Repository [id number] (HP) Date:3018-37-51KJQG CLAIMS [address], [place] [address]JZ: 07/27/2018 Secondary NOT GIVENUNK Milli Insurance:SELF PAY [place] Number: Effective Repository Date:2018-07-27 07/27/2018 TASHA L Primary TASHA L Pr[place] [id number] Insurance:MYCARE CRSC ANDERSONDOB: [facility], *[place] [facility] [id number] Hospital [address]Hjv: Number: Repository [id number] (HP) Date:6904-53-00LIXZ CLAIMS [address] [address]VF: 07/27/2018 Secondary NOT GIVENUNK [place] Insurance:SELF PAY [place] Number: Effective Repository Date:2018-07-27 07/24/2018 TASHA Primary Insurance:[facility] TASHA JIMUNK [facility] [id number] [facility] [place]: [place] [address]Twi: [id number] Date:[address] [place]OP[place]QNFY, [place] [address]IF: [phone] 07/20/2018 TASHA L Primary TASHA L Pratts [id number] Insurance:MYCARE CRSC ANDERSONDOB: [facility], *[place] [facility] [id number] Hospital [address]Hdm: Number: Repository [id number] (HP) Date:4145-53-74DBNA [place]S [address] [address]MQ: 07/20/2018 Secondary NOT GIVENUNK [place] Insurance:SELF PAY [place] Number: Effective Repository Date:2018-07-20 07/20/2018 TASHA L Primary TASHA L Pratts [id number] Insurance:MYCARE CRSC ANDERSONDOB: [facility], *[place] [facility] [id number] Hospital [address]Ouh: Number: Repository [id number] (HP) Date:0707-06-91JEGF [address]S [address] [address]DA: 07/20/2018 Secondary NOT GIVENUNK Milli Insurance:SELF PAY [place] Number: Effective Repository Date:2018-07-18 07/18/2018 TASHA L Primary TASHA L Pratts [id number] Insurance:MYCARE CRSC ANDERSONDOB: [facility], *[place] [facility] [id number] Hospital [address]Kzs: Number: Repository [id number] (HP) Date:1422-50-21ADOH [address]S [address] [address]CW: 07/18/2018 Secondary NOT GIVENUNK [place] Insurance:SELF PAY [place] Number: Effective Repository Date:2018-07-18 07/10/2018 TASHA L Primary TASHA L Pratts [id number] Insurance:MYCARE CRSC ANDERSONDOB: [facility], *[place] [facility] [id number] Hospital [address]Tnx: Number: Repository [id number] (HP) Date:7347-69-73GFJB CLAIMS [address], [place] [address]RQ: 07/10/2018 Secondary NOT GIVENUNK Milli Insurance:SELF PAY [place] Number: Effective Repository Date:2018-07-07 06/29/2018 TASHA Primary Insurance:[facility] TASHA [facility] Medical [id number] [employer] [facility], Insured [facility] [place] [address]Lsd: Number: [id number] (HP) Date:[id number] [place] [address]GY: 06/29/2018 Secondary TASHA [facility] Medical Insurance:[facility] Repository Number: [id number] Date:[address] [place] [address]FJ: 06/27/2018 TASHA L Primary TASHA L Milli [id number] [facility] ANDERSONDOB: [facility], *[place] [facility] [id number] [place] [address]Xwg: Number: Repository [id number] (HP) Date:7795-24-17ZDPY CLAIMS DEPT[address] [place] [address]WF: 06/27/2018 Secondary NOT GIVENUNK [place] Insurance:SELF PAY [place] Number: Effective Repository Date:2018-06-27 06/22/2018 TASHA Primary Insurance:[facility]HA [facility] [id number] [facility], Insured [facility] [place] [address]Dxt: Number: [id number] (HP) Date:1181-81-77[address]X [address], [place] [address]IW: 06/22/2018 [facility] Repository Number: [id number] Date:[address], [place] [address]QG: 06/19/2018 TASHA L Primary TASHA L Milli [id number] Insurance:MYCARE CRSC ANDERSONDOB: [facility], *[place] [facility] [id number] Hospital [address]Mik: Number: Repository [id number] (HP) Date:5791-91-38PKHW CLAIMS [address], [place] [address]YL: 06/19/2018 Secondary NOT GIVENUNK Milli Insurance:SELF PAY [place] Number: Effective Repository Date:2018-06-19 06/15/2018 TASHA Primary Insurance:[facility] TASHA NAYLA [facility] [id number] [facility] Number: [place] [address]Dwt: [id number] Date:[address]) [place]37[place], [place] [address]JZ: [phone] 06/09/2018 TASHA Primary TASHA NAYLA [facility]122 Insurance:[facility] [place] [address]Cub: Number: [id number] (HP) Date:[address], [place] [address]HR: 06/01/2018 TASHA L Primary TASHA L Milli [id number] Insurance:MYCARE CRSC ANDERSONDOB: [facility], *[place] [facility] [id number] Hospital [place] [address]Meq: Number: Repository [id number] (HP) Date:1853-86-15CZLG CLAIMS [address], [place] [address]SG: 06/01/2018 Secondary NOT GIVENUNK [place] Insurance:SELF PAY [place] Number: Effective Repository Date:2018-06-01 06/01/2018 TASHA L Primary TASHA L Milli [id number] Insurance:MYCARE CRSC ANDERSONDOB: [facility], *[place] [facility] [id number] Hospital [address]Zfx: Number: Repository [id number] (HP) Date:0709-60-03SJAR CLAIMS DEPTPO [address] [place] [address]SD: 06/01/2018 Secondary NOT GIVENUNK [place] Insurance:SELF PAY [place] Number: Effective Repository Date:2018-06-01 05/16/2018 TASHA L Primary TASHA L Pratts [id number] Insurance:MYCARE CRSC ANDERSONDOB: [facility], *[place] [facility] [id number] Hospital [address]Hyk: Number: Repository [id number] (HP) Date:6423-83-13FSLI [facility]S [facility] [address] [address]ID: 05/16/2018 Secondary NOT GIVENUNK [place] Insurance:SELF PAY [place] Number: Effective Repository Date:2018-05-08 05/08/2018 TASHA L Primary TASHA L Milli [id number] Insurance:MYCARE CRSC ANDERSONDOB: [facility], *[place] [facility] [id number] Hospital [address]Jyb: Number: Repository [id number] (HP) Date:5186-41-18KJFW CLAIMS DEPTPO [address] [address]CQ: 05/08/2018 Secondary NOT GIVENUNK [place] Insurance:SELF PAY [place] Number: Effective Repository Date:2018-05-08 05/03/2018 Tasha L Primary Tasha L Pratts [id number] Insurance:MYCARE CRSC AndersonDOB: [facility], *[place] [facility] [id number] Hospital [address]Oqq: Number: Repository [id number] (HP) Date:8234-29-91QHLK CLAIMS [address] [address]SK: 05/03/2018 Secondary NOT GIVENUNK Milli Insurance:SELF PAY [place] Number: Effective Repository Date:2018-05-03 04/12/2018 TASHA Primary TASHA [employer] ANDERSONDOB: Insurance:[employer] ANDERSONDOB: [facility] [id number] [place] [address], Number: [place], [place] [address]Zdw: [id number] [place] [address]Vnn: Date:Plan Name:[facility] () () 04/12/2018 Secondary TASHA [employer] [facility] ANDERSONDOB: [facility] [id number] [place] [address], Number: [place] [address]Wpv: [id number] Date:Plan Name:Health () 03/24/2018 Tasha L Primary Tasha L Milli [id number] Insurance:[facility] AndersonDOB: [facility], [place] [facility] [id number] Hospital [address]Qnd: Number: Repository [id number] () Date:6947-57-11BFGS CLAIMS [address] [place] [address]XZ: 03/24/2018 Secondary NOT GIVENUNK [place] Insurance:SELF PAY [place] Number: Effective Repository Date:2018-03-24 01/31/2018 TASHA Primary [id number] Insurance:[facility] [place] [address]Ena: Number: [id number] () Date:[address], [place] [address]AN: 01/20/2018 TASHA Primary Insurance:[facility] TASHA [facility]122 [facility] [place]: [place] [address]Kcd: [id number] Date:[address]TSHFGCEB, [place] [address]BK: [phone] 12/13/2017 TASHA Primary TASHA [employer] ANDERSONDOB: Insurance[facility]: [facility] [id number] Repository [facility], Number: [place], [place] [address]Aty: [id number] [place] [address]Wms: Date:Plan Name:Health () () 12/13/2017 Secondary [facility] Insurance:[facility]OB: [facility] [id number] Repository [facility], Number: [place] [address]Ykg: [id number] Date:Plan Name:Health () 11/03/2017 Tasha L Primary Tasha L Milli [place] [address] Insurance:[facility] AndersonDOB: [facility], [place] [facility] [id number] Hospital [address]Qsw: Number: Repository [id number] (HP) Date:8937-69-29IRBL CLAIMS [address], [place] [address]YA: 11/03/2017 Secondary NOT GIVENUNK Milli Insurance:SELF PAY [place] Number: Effective Repository Date:2017-11-03
== END ==
PROVIDERS: Family Provider Family Medicine; PCP Family Medicine; Referring Provider Surgery; Visit Provider Surgery
DX: L02.31 Cutaneous abscess of buttock (principal)
CPT/HCPCS: 87070; 87077; 87186; 87205

== ENCOUNTER → 2018-08-25 12:30 | Outpatient (CLI) | payer MEDICARE, SELFPAY ==
--- NOTE | 2018-08-25 12:34 | BI_ITS ---
MAMMOGRAPHY - BILATERAL SCREENING REASON FOR EXAM: Female, 42 years old. Routine annual screening examination. PERTINENT HISTORY: Non-contributory. TECHNIQUE: Digital bilateral breast paul (3D mammographic acquisition) in the CC and MLO projections. 2-D mediolateral oblique (MLO) and craniocaudad (CC) views of both breasts were obtained. CAD: Full Field Digital Mammography with Computer Added Detection was performed. COMPARISON: Comparison is made with prior study dated May 27, 2017. FINDINGS: Breast Composition: There are scattered areas of fibroglandular density. There are no dominant masses or suspicious calcifications. No other significant abnormalities are identified. There has been no significant change since the prior study. BI/SCREENING MAMM (CAD), BILAT IMPRESSION: Stable bilateral screening mammogram. Yearly follow-up mammogram recommended. (A) ASSESSMENT CATEGORY: BIRADS Category 1: Negative. A letter regarding these results will be sent to the patient by the facility within 30 days. Approximately 10% of breast cancers are not detected by mammography. A normal mammogram should not delay biopsy of a clinically suspicious abnormality. [id number] Electronically Signed: Trent Gresham MD at 14:44 EST Tel [phone], Service support ,
--- OUTSIDE RECORDS SUMMARY | 2018-10-11 07:33 | XMS RPT_ITS ---
:1975 Author Organization OHIP Support Name Relationship Address Phone D Unavailable Unavailable Unavailable JON BEAL Unavailable [address] + [place] [address] D Unavailable Unavailable Unavailable JON BEAL Unavailable [address] + [place] [address] D Unavailable Unavailable Unavailable JON BEAL Unavailable [address] + [place] [address] D Unavailable Unavailable Unavailable JON BEAL Unavailable [address] + [place] [address] D Unavailable Unavailable Unavailable JON BEAL Unavailable [address] + [place] [address] D Unavailable Unavailable Unavailable JON BEAL Unavailable [address] + [place] [address] D Unavailable Unavailable Unavailable JON BEAL Unavailable [address] + [place] [address] D Unavailable Unavailable Unavailable JON BEAL Unavailable [address] + [place] [address] D Unavailable Unavailable Unavailable JON BEAL Unavailable [address] + [place] [address] D Unavailable Unavailable Unavailable JON BEAL Unavailable [address] + [place] [address] D Unavailable Unavailable Unavailable JON BEAL Unavailable [address] + [place] [address] D Unavailable Unavailable Unavailable JON BEAL Unavailable [address] + [place] [address] D Unavailable Unavailable Unavailable JON BEAL Unavailable [address] + [place] [address] D Unavailable Unavailable Unavailable JON BEAL Unavailable [address] + [place] [address] D Unavailable Unavailable Unavailable JON BEAL Unavailable [address] + [place] [address] D Unavailable Unavailable Unavailable JON BEAL Unavailable [address] + [place] [address] D Unavailable Unavailable Unavailable JON BEAL Unavailable [address] + [place] [address] D Unavailable Unavailable Unavailable JON BEAL Unavailable [address] + [place] [address] D Unavailable Unavailable Unavailable JON BEAL Unavailable [address] + [place] [address] D Unavailable Unavailable Unavailable JON BEAL Unavailable [address] + [place] [address] D Unavailable Unavailable Unavailable JON BEAL Unavailable [address] + [place] [address] D Unavailable Unavailable Unavailable JON BEAL Unavailable [address] + [place] [address] D Unavailable Unavailable Unavailable JON BEAL Unavailable [address] + [place] [address] JON BOWSER Unavailable Unavailable + D Unavailable Unavailable Unavailable JON BEAL Unavailable [address] + [place] [address] JON BOWSER Unavailable Unavailable + D Unavailable Unavailable Unavailable JON BEAL Unavailable [address] + [place] [address] Care Team Providers Name Role Phone Dr. Melsisa Palomares Attending Unavailable Melissa Palomares Admitting Unavailable Melissa Palomares Attending Unavailable Melissa Palomares Referring Unavailable Dr. Ronnell Moreno Primary Care Unavailable Ronnell Moreno Attending Unavailable Ronnell Moreno Primary Care Unavailable Ronnell Moreno Attending Unavailable Ronnell Moreno Primary Care Unavailable Ronnell Moreno Referring Unavailable Ronnell Moreno Attending Unavailable Ronnell Moreno Referring Unavailable Ronnell Moreno Primary Care Unavailable Florence Mario Attending Unavailable Ronnell Moreno Referring Unavailable Ronnell Moreno Primary Care Unavailable Florence Mario Attending Unavailable Florence Mario Referring Unavailable Ronnell Moreno Primary Care Unavailable Florence Mario Attending Unavailable Ronnell Moreno Referring Unavailable Robotham, Florence Attending Unavailable Moreon, Ronnell Primary Care Unavailable Robotham, Florence Referring Unavailable Seals, Luis Alberto Attending Unavailable Seals, Luis Alberto Referring Unavailable Moreno, Ronnell Primary Care Unavailable Robotham, Florence Attending Unavailable Robotham, Florence Attending Unavailable Robotham, Florence Referring Unavailable Moreno, Ronnell Primary Care Unavailable Robotham, Florence Attending Unavailable Robotham, Florence Referring Unavailable Moreno, Ronnell Primary Care Unavailable Robotham, Florence Consulting Unavailable Robotham, Florence Attending Unavailable Moreno, Ronnell Referring Unavailable Robotham, Florence Attending Unavailable Moreno, Ronnell Referring Unavailable Robotham, Florence Attending Unavailable Moreno, Ronnell Referring Unavailable Robotham, Florence Attending Unavailable Moreno, Ronnell Referring Unavailable Robotham, Florence Attending Unavailable Moreno, Ronnell Referring Unavailable Robotham, Florence Attending Unavailable Robotham, Florence Attending Unavailable Moreno, Ronnell Referring Unavailable Robotham, Florence Attending Unavailable Robotham, Florence Referring Unavailable Tatum PA-C, Philomena Attending Unavailable Tatum PA-C, Philomena Referring Unavailable Moreno, Ronnell Primary Care Unavailable [...] GORTY, BELKYS A Referring Unavailable THUY LEMON (APN) Attending Unavailable DAO NOLAN (ASSOCIATE SCHOOL PSYCHOLOGIST) Attending Unavailable CEBUL III, MICHELLE A Referring Unavailable GORTY, BELKYS A Attending Unavailable GORTY, BELKYS A Referring Unavailable BHARTI WELSH (RD) Attending Unavailable GORTY, BELKYS A Referring Unavailable GORTY, BELKYS A Referring Unavailable GORTY, BELKYS A Attending Unavailable GORTY, BELKYS A Referring Unavailable GORTY, BELKYS A Referring Unavailable VickMao Attending Unavailable Cebul, Michelle A Primary Care Unavailable VickMao Attending Unavailable Cebul, Michelle A Primary Care Unavailable Von Nolan Attending Unavailable Cebul, Michelle A Primary Care Unavailable Mao Hickman Attending Unavailable Mao Hickman Attending Unavailable Vick, Mao P Attending Unavailable Mao Hickman Attending Unavailable Michelle Goldberg Primary Care Unavailable Von Nolan Attending Unavailable Michelle oGldberg Primary Care Unavailable PROBLEMS PROBLEMS DATE TYPE CONDITION / CODE ATTENDING STATUS SOURCE 09/04/2018 Unknown G89.18 - Other acute Robotham, Active [facility] postprocedural pain [facility] / G89.18(ICD-10) Hospital Repository 08/11/2018 Unknown L02.31 - Cutaneous Rob[place]am, Active [place] abscess of buttock / [facility] L02.31(ICD-10) Hospital Repository 06/27/2018 Unknown L02.91 - Cutaneous [place]am, Active [place] abscess, unspecified [facility] / L02.91(ICD-10) Hospital Repository 04/17/2018 Active Liver disease, NA Active [place] unspecified / [facility] K76.9(ICD-10) [place] Repository 04/17/2018 Active Overweight / NA Active [place] E66.3(ICD-10) Clinic Main [place] Repository 07/29/2015 Active Hypothyroidism, NA Active [place] unspecified / [facility] E03.9(ICD-10) [facility] Repository 01/20/2011 Active Vitamin D NA Active [place] deficiency, [facility] unspecified / [place] E55.9(ICD-10) Repository 02/10/2018 Active Other injury of NA Active [place] unspecified body [facility] region, initial [place] encounter / Repository T14.8XXA(ICD-10) 02/10/2018 Active Unknown / DAO NOLAN Active [facility] UNK(Unknown) (ASSOCIATE SCHOOL PSYCHOLOGIST) Clinic Main [place] Repository 01/20/2018 Admitting Unknown / Jarrod Hickman [facility] Medical diagnosis UNK(Unknown) [facility] Repository 12/13/2017 Admitting Chronic migraine w/o Dr. Marielle [facility] diagnosis aura, intractable, [facility] w/o stat migr / Repository G43.719(ICD-10) 12/13/2017 Unknown Chronic migraine w/o Dr. Marielle [facility] [place] [facility] G43.719(ICD-10) 12/13/2017 Active Chronic migraine w/[facility] 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, not Clinic Main elsewhere classified [place] / K91.2(ICD-10) Repository 11/25/2017 Active Bariatric surgery NA Active [place] status / [facility] Main Z98.84(ICD-10) [place] Repository 11/03/2017 Unknown E03.9 - MorenoRonnell Active [place] Hypothyroidism, Community unspecified / Hospital E03.9(ICD-10) Repository 11/03/2017 Unknown R53.83 - Other Ronnell Moreno Active [place] fatigue / Community R53.83(ICD-10) Hospital Repository PROCEDURES PROCEDURES No Procedure Records FoundRESULTS RESULTS SURGERY VISIT REPORT Observed: 09/22/2018 Status: F Source: [place] 1:54 PM [facility] RE[facility] [address] [place] [address]. [address] [place] [address] OFFICE VISIT Date of Service: 09/22/18 MR#: [id number] Acct: [id number] Name: JIM BEALTASHA L Rep #: [id number] : 1975 Provider: [place] Mario MD Age/Sex: 42/F Location: [facility] Status: Signed Intake Vital Signs09/22/18 Body Mass Index (BMI) 30.3 09/15/18 Body Mass Index (BMI) 30.3 Intake Visit Reasons: I AND D Buttock Abscess Chief Complaint: post op buttock wound Maintenance And Engineering Manager Required: No Is patient in pain?: No Allergies Penicillins [PCN] Allergy (Verified 09/15/18 10:12) Rash silicone [Silicone] Allergy (Verified 09/15/18 10:12) Rash hydrochlorothiazide Adverse Reaction (Verified 09/15/18 10:12) Other topiramate [From Topamax] Adverse Reaction (Verified 09/15/18 10:12) Chest tightness Medications Duloxetine Hcl [Cymbalta] 60 mg PO BID 06/19/13 [History Confirmed 08/29/18] Ergocalciferol [Vitamin D] 50,000 unit PO Q7D 06/19/13 [History Confirmed 08/29/18] Levothyroxine [Synthroid] 50 mcg PO DAILY 06/19/13 [History Confirmed 08/29/18] Omeprazole [Prilosec] 20 mg PO BID 06/19/13 [History Confirmed 08/29/18] Biotin 10 mg PO DAILY 12/22/13 [History Confirmed 08/29/18] Calcium Citrate/Vitamin D3 [Calcium Citrate-Vit D3 Tablet] 2 ea PO BID 06/23/17 [History Confirmed 08/29/18] Cyanocobalamin (Vitamin B-12) [Vitamin B-12] 500 mcg PO DAILY 06/23/17 [History Confirmed 08/29/18] Magnesium 500 mg PO DAILY 06/23/17 [History Confirmed 08/29/18] Tizanidine HCl [Zanaflex] 4 mg PO BID 06/23/17 [History Confirmed 08/31/18] hydrOXYzine pamoate capsule [Vistaril pamoate capsule] 25 mg PO TID PRN PRN 06/23/17 [History Confirmed 08/29/18] Acetaminophen [Tylenol] 1,000 mg PO Q8H PRN PRN tab 07/01/17 [Rx Confirmed 08/29/18] zonisamide 100 mg capsule 400 mg PO DAILY cap 05/08/18 [History Confirmed 08/29/18] doxycycline monohydrate 100 mg capsule 100 mg PO BID #20 cap 08/18/18 [Rx Confirmed 08/29/18] levofloxacin 500 mg tablet 500 mg PO ONCE #7 tab 09/15/18 [Rx Confirmed 09/15/18] metronidazole 500 mg tablet 500 mg PO ONCE #21 tab 09/15/18 [Rx Confirmed 09/15/18] Is last menstrual period known: No Post menopausal: No Patient : No PFSH Medical History Hx [...] office today for right buttock abscess patient did state that one day she did have more bloody drainage but then it did go back to be in the normal amount of greenish drainage. Patient has continue to pack 1-2 times a day with the Aquacel silver. Exam Const General: cooperative, comfortable, no acute distress Skin Other: Right buttock wound, good granulation tissue, still has a greenish drainage on dressing. Tract does seem to go towards the perineum/possibly the posterior vagina Assessment AND Plan Problems 1. Abscess of buttock, right L02.31 Plan Due to the continual source of infection even on antibiotics and with the occipital silver question if there is a fistula however the cultures have been really been gram-positive not gram negatives question of the fistula could be from a vaginal source patient did have a hysterectomy by Dr. Platt in 2016. And discussed with Dr. Platt. Patient is agreeable plan. Will call patient with follow-up plans. Addendum: Did discuss with Dr. Platt and he is willing to see her in the office and we may end up doing exam under anesthesia together in the OR. [place] Mario M.D. Pager: [phone] [facility] [address] [place] [address], [address] [place] [address] Office: [phone] Coding Level of Care Code Off vis,est,level 3 Diagnoses Abscess of buttock, right L02.31 09/22/18 7258 <Electronically signed by Florence Mario MD> Date Florence Mario MD Cosigner Signature: Date (if applicable) CC: Luis Alberto Platt MD; Ronnell Moreno MD SURGERY VISIT REPORT Observed: 09/20/2018 Status: F Source: [place] 12:52 PM [facility] [address] [place] [address] OFFICE VISIT Date of Service: 09/15/18 MR#: [id number] Acct: [id number] Name: TASHA TORO Rep #: [id number] : 1975 Provider: Florence Mario MD Age/Sex: 42/F Location: [facility] Status: Signed Intake Intake Visit Reasons: I AND D Buttock Abscess Chief Complaint: post op buttock wound Maintenance And Engineering Manager Required: No Is patient in pain?: Yes Allergies Penicillins [PCN] Allergy (Verified 09/15/18 10:12) Rash silicone [Silicone] Allergy (Verified 09/15/18 10:12) Rash hydrochlorothiazide Adverse Reaction (Verified 09/15/18 10:12) Other topiramate [From Topamax] Adverse Reaction (Verified 09/15/18 10:12) Chest tightness Medications Duloxetine Hcl [Cymbalta] 60 mg PO BID 06/19/13 [History Confirmed 08/29/18] Ergocalciferol [Vitamin D] 50,000 unit PO Q7D 06/19/13 [History Confirmed 08/29/18] Levothyroxine [Synthroid] 50 mcg PO DAILY 06/19/13 [History Confirmed 08/29/18] Omeprazole [Prilosec] 20 mg PO BID 06/19/13 [History Confirmed 08/29/18] Biotin 10 mg PO DAILY 12/22/13 [History Confirmed 08/29/18] Calcium Citrate/Vitamin D3 [Calcium Citrate-Vit D3 Tablet] 2 ea PO BID 06/23/17 [History Confirmed 08/29/18] Cyanocobalamin (Vitamin B-12) [Vitamin B-12] 500 mcg PO DAILY 06/23/17 [History Confirmed 08/29/18] Magnesium 500 mg PO DAILY 06/23/17 [History Confirmed 08/29/18] Tizanidine HCl [Zanaflex] 4 mg PO BID 06/23/17 [History Confirmed 08/31/18] hydrOXYzine pamoate capsule [Vistaril pamoate capsule] 25 mg PO TID PRN PRN 06/23/17 [History Confirmed 08/29/18] Acetaminophen [Tylenol] 1,000 mg PO Q8H PRN PRN tab 07/01/17 [Rx Confirmed 08/29/18] zonisamide 100 mg capsule 400 mg PO DAILY cap 05/08/18 [History Confirmed 08/29/18] doxycycline monohydrate 100 mg capsule 100 mg PO BID #20 cap 08/18/18 [Rx Confirmed 08/29/18] levofloxacin 500 mg tablet 500 mg PO ONCE #7 tab 09/15/18 [Rx Confirmed 09/15/18] metronidazole 500 mg tablet 500 mg PO ONCE #21 tab 09/15/18 [Rx Confirmed 09/15/18] Is last menstrual period known: No Post menopausal: No Patient : No Subjective Details: Patient presents for follow-up for right buttock abscess status post incision and debridement. Patient has been using the Aquacel silver packing states she has to use 1-2 a day only a partial part of the original size packing. Patient states she is still having the greenish drainage and has been doing sitz bath as well. Patient did finish her antibiotics. She does state that is a little less sore currently Objective Details: Right buttock abscess, good granulation tissue, still about 4.5 cm deep, greenish drainage on dressing Assessment AND Plan Problems 1. Abscess of buttock, right L02.31 Plan We will try another week of antibiotics of the levofloxacin and metronidazole. Continue packing with Aquacel silver on the times daily. If there is little to no change at the next follow-up appointment in 1 week we will plan to go back to the OR and she may need further debridement as her could possibly be another opening/tract at the base that currently is not able to be visualized in the office. Patient is agreeable with plan. Florence Mario M.D. Pager: [phone] [facility] [address] [place] [address], [facility], [address] [place] [address] Office: [phone] Medications Refilled: Plan Detail Follow Up 1 Week Coding Level of Care Code Global Post Op Diagnoses Abscess of buttock, right L02.31 09/20/18 1252 <Electronically signed by Florence Mario MD> Date Florence Mario MD Cosigner Signature: Date (if applicable) CC: Ronnell Moreno MD SURGERY VISIT REPORT Observed: 09/13/2018 Status: F Source: [place] 3:20 PM [facility] [address] [place] [address] OFFICE VISIT Date of Service: 09/08/18 MR#: [id number] Acct: [id number] Name: TASHA TORO Rep #: [id number] : 1975 Provider: Florence Mario MD Age/Sex: 42/F Location: [facility] Status: Signed Intake Intake Visit Reasons: I AND D Buttock Abscess 08/31 Chief Complaint: post op buttock wound Maintenance And Engineering Manager Required: No Is patient in pain?: Yes Allergies Penicillins [PCN] Allergy (Verified 08/29/18 15:17) Rash silicone [Silicone] Allergy (Verified 08/29/18 15:17) Rash hydrochlorothiazide Adverse Reaction (Verified 08/29/18 15:17) Other topiramate [From Topamax] Adverse Reaction (Verified 08/29/18 15:17) Chest tightness Medications Duloxetine Hcl [Cymbalta] 60 mg PO BID 06/19/13 [History Confirmed 08/29/18] Ergocalciferol [Vitamin D] 50,000 unit PO Q7D 06/19/13 [History Confirmed 08/29/18] Levothyroxine [Synthroid] 50 mcg PO DAILY 06/19/13 [History Confirmed 08/29/18] Omeprazole [Prilosec] 20 mg PO BID 06/19/13 [History Confirmed 08/29/18] Biotin 10 mg PO DAILY 12/22/13 [History Confirmed 08/29/18] Calcium Citrate/Vitamin D3 [Calcium Citrate-Vit D3 Tablet] 2 ea PO BID 06/23/17 [History Confirmed 08/29/18] Cyanocobalamin (Vitamin B-12) [Vitamin B-12] 500 mcg PO DAILY 06/23/17 [History Confirmed 08/29/18] Magnesium 500 mg PO DAILY 06/23/17 [History Confirmed 08/29/18] Tizanidine HCl [Zanaflex] 4 mg PO BID 06/23/17 [History Confirmed 08/31/18] hydrOXYzine pamoate capsule [Vistaril pamoate capsule] 25 mg PO TID PRN PRN 06/23/17 [History Confirmed 08/29/18] Acetaminophen [Tylenol] 1,000 mg PO Q8H PRN PRN tab 07/01/17 [Rx Confirmed 08/29/18] zonisamide 100 mg capsule 400 mg PO DAILY cap 05/08/18 [History Confirmed 08/29/18] doxycycline monohydrate 100 mg capsule 100 mg PO BID #20 cap 08/18/18 [Rx Confirmed 08/29/18] levofloxacin 500 mg tablet 500 mg PO ONCE #7 tab 09/07/18 [Rx Confirmed 09/07/18] metronidazole 500 mg tablet 500 mg PO ONCE #21 tab 09/07/18 [Rx Confirmed 09/07/18] Hydrocodone Bitart/Apap 5-325 [[place] 5MG-325MG] 1 tab PO Q6H PRN PRN 5 Days #15 tab 09/11/18 [Rx] Is last menstrual period known: No Post menopausal: No Patient : No Subjective Details: Patient presents status post incision and debridement of right buttock abscess. States she has been packing it with wet to dry twice daily and then she did change to once a day as there was not much drainage but then she began to have more greenish drainage. Patient's cultures did come back and scripts were called in for Levaquin and Flagyl for 1 week. Patient did go back to packing twice daily with wet-to-dry. Objective Details: Right buttock abscess: Packing removed some greenish drainage on wet-to-dry, wound base appears to be healing well with good granulation tissue no obvious active drainage in the base of the wound. Placed Aquacel silver dressing in the wound Assessment AND Plan Problems 1. Abscess of buttock, right L02.31 Plan This post incision and debridement in the OR. Did cut a piece of the Aquacel silver dressing to be placed in the wound bed to help fully help this area heal and also start patient on Levaquin and Flagyl times 1 week. Also called in a prescription for lidocaine 4% spray to help with the wound changes. Patient will follow-up in 1 week. Florence Mario M.D. Pager: [phone] [facility] [address] [place] [address], [address] [place] [address] Office: [phone] Plan Detail Follow Up 1 Week Coding Level of Care Code Global Post Op Diagnoses Abscess of buttock, right L02.31 09/13/18 1520 <Electronically signed by Florence Mario MD> Date Florence Mario MD Cosigner Signature: Date (if applicable) CC: Ronnell Moreno MD SURGERY VISIT REPORT Observed: 09/07/2018 Status: F Source: [place] 8:[address] [place] [address] OFFICE VISIT Date of Service: 08/11/18 MR#: [id number] Acct: [id number] Name: TASHA TORO Rep #: [id number] : 1975 Provider: Florence Mario MD Age/Sex: 42/F Location: [facility] Status: Signed Intake Intake Visit Reasons: I AND D Buttock Abscess Chief Complaint: I AND D buttock abscess Maintenance And Engineering Manager Required: No Is patient in pain?: No Allergies Penicillins [PCN] Allergy (Verified 08/29/18 15:17) Rash silicone [Silicone] Allergy (Verified 08/29/18 15:17) Rash hydrochlorothiazide Adverse Reaction (Verified 08/29/18 15:17) Other topiramate [From Topamax] Adverse Reaction (Verified 08/29/18 15:17) Chest tightness Medications Duloxetine Hcl [Cymbalta] 60 mg PO BID 06/19/13 [History Confirmed 08/29/18] Ergocalciferol [Vitamin D] 50,000 unit PO Q7D 06/19/13 [History Confirmed 08/29/18] Levothyroxine [Synthroid] 50 mcg PO DAILY 06/19/13 [History Confirmed 08/29/18] Omeprazole [Prilosec] 20 mg PO BID 06/19/13 [History Confirmed 08/29/18] Biotin 10 mg PO DAILY 12/22/13 [History Confirmed 08/29/18] Calcium Citrate/Vitamin D3 [Calcium Citrate-Vit D3 Tablet] 2 ea PO BID 06/23/17 [History Confirmed 08/29/18] Cyanocobalamin (Vitamin B-12) [Vitamin B-12] 500 mcg PO DAILY 06/23/17 [History Confirmed 08/29/18] Magnesium 500 mg PO DAILY 06/23/17 [History Confirmed 08/29/18] Tizanidine HCl [Zanaflex] 4 mg PO BID 06/23/17 [History Confirmed 08/31/18] hydrOXYzine pamoate capsule [Vistaril pamoate capsule] 25 mg PO TID PRN PRN 06/23/17 [History Confirmed 08/29/18] Acetaminophen [Tylenol] 1,000 mg PO Q8H PRN PRN tab 07/01/17 [Rx Confirmed 08/29/18] zonisamide 100 mg capsule 400 mg PO DAILY cap 05/08/18 [History Confirmed 08/29/18] doxycycline monohydrate 100 mg capsule 100 mg PO BID #20 cap 08/18/18 [Rx Confirmed 08/29/18] hydrocodone 5 mg-acetaminophen 325 mg tablet 1 tab PO Q6H PRN 5 Days #14 tab 09/06/18 [Rx] PFSH Medical History Hx of hysterectomy (Acute) [...] presents to the office today for follow-up for the right buttock abscess. Patient states she is still having drainage and she is also having a hard time packing of the skin opening is getting smaller. Exam Const General: cooperative, comfortable, no acute distress Skin Other: Right buttock abscess, no erythema, greenish drainage on dressing, no active drainage, skin opening is only about 5 mm Office Procedures Incision and Drainage Procedure performed by: violet Informed consent given: Yes Time out checklist: patient, procedure, site marked/identified, positioning of patient, supplies available, allergies confirmed, team agrees on procedure Anesthesia: local Incision with: #11 blade Drainage quality: minimal-none Probed cavity: Yes Culture taken: Yes Lesion: drainage (minimal greenish on dressing) Lesion size (cm): 3 (3.5 cm deep, 1.5x1.5 cm, original opening was enlarged to 1.5 cm [place] as the cavity was deeper than before and opening was only 5mm to allow for packing) Hemostasis: pressure Cavity management: irrigated, debrided Dressing: other (1/2 iodoform) Patient tolerated procedure: well Complications: No Assessment AND Plan Problems 1. Abscess of buttock, right L02.31 Plan Patient's right buttock abscess underwent I AND D in the office, as it was deeper than previously thought. This was also repacked with half-inch iodoform. Patient will continue to pack twice daily and use saline to irrigate after unpacking. Follow- up in 1 week Florence Mario M.D. Pager: [phone] [facility] [address] [place] [address], [facility], [address] [place] [address] Office: [phone] Orders Orders: Medications Refilled: Coding Level of Care Code Attention Electrician Master Diagnoses Abscess of buttock, right L02.31 Comment I AND debridement- [id number] 09/07/18 0815 <Electronically signed by Florence Mario MD> Date Florence Mario MD Cosigner Signature: Date (if applicable) CC: Florence Mario MD OPERATIVE REPORT Observed: 09/04/2018 Status: F Source: [place] 11:26 AM [facility] REPOSITORY [facility] Medical Records Department [address] [place] [address] [place] [address] Operative Report 08/31/18 1423 MR#: [id number] Acct: [id number] Name: TASHA TORO Rep #: [id number] : 1975 42 From: Florence Mario MD PCP: Ronnell Moreno MD Status: [facility] Location: [facility] Report of Operation Date of Procedure: 08/31/18 Pre-Operative Diagnosis: Right buttock abscess Post-Operative Diagnosis: Same Surgery/Procedure Performed:: Incision and debridement of right buttock abscess seed and fertilizer specialist: Babs Tucker Type of Anesthesia:: MAC/Supplemental/Local Anesthesiologist: Bret Paul Special Medications: Levofloxacin 500 mg IV x1 Specimen's removed: Culture sent as well as tissues for culture Estimated Blood Loss (mL): <10 cc Fluids Replaced: 500 cc Description of Procedure: Patient was brought to the operating room and placed in right lateral decubitus position on the operating table. Correct pre-procedure, site, positioning, special, was verified prior to beginning procedure. MAC anesthesia was induced. The right buttock was prepped and draped in usual sterile fashion with Betadine due to the open wound. Local 1% lidocaine and 0.5 Marcaine 1:1 mixture was used for a total of 9 cc. An elliptical incision was made around the current abscess opening which was about 0.5 cm initially this was enlarged to 3 cm x 1.5 cm. The abscess was noted to track to the just anterior to the anus, the small opening were opened to allow for better drainage. Cultures were taken. The davidosn of the previous abscess was removed with electrocautery and a curette was also used. Once the base of the cavity was clearly seen and no more openings or sinuses found. The wound was irrigated. The wound was 4-1/2 cm in depth tapering out to the 3 cm x 1.5 cm in width and height. Hemostasis was assured. Wound was packed with wet-to-dry dressing. And dressed with 4 x 4 gauze and paper tape. Patient tolerated procedure well was taken to the postanesthesia care unit in stable condition. - Complications none 09/04/18 1126 <Electronically signed by Florence Mario MD> Date Florence Mario MD CC: Ronnell Moreno MD; Florence Mario MD Signed DISCHARGE INSTRUCTION Observed: 08/31/2018 Status: F Source: [place] 2:44 PM [facility] REPOSITORY [facility] Medical Records Department [address] [place] [id number] Instructions for Home/Discharge Instructions 08/31/18 1429 MR#: [id number] Acct: [id number] Name: TASHA TORO Rep #: [id number] : 1975 42 From: Florence Mario MD PCP: Ronnell Moreno MD Status: REG [facility] Discharge Diet: No Restrictions Discharge Activity: May not drive while taking narcotic pain medications. Call your doctor if your incision/area has: Continuous Slow Oozing, Sudden Increased Bleeding, Increased Pain/ Swelling, Increased Redness, Foul Smelling Discharge, Swelling at the incision site Remove Dressing in (days):: 1 Additional Dressing/Incision Instructions:: Use wet to dry dressings twice daily for the first few days then okay to go wet-to-dry daily if there is not much drainage. Allergies/Adverse Reactions: Allergies Penicillins [PCN] Allergy (Verified 08/29/18 15:17) Rash RAPID HEARTRATE silicone [Silicone] Allergy (Verified 08/29/18 15:17) Rash hydrochlorothiazide Adverse Reaction (Verified 08/29/18 15:17) Other topiramate [From Topamax] Adverse Reaction (Verified 08/29/18 15:17) Chest tightness Medications to take at Discharge Duloxetine Hcl [Cymbalta] 60 mg PO BID 06/19/13 Ergocalciferol [Vitamin D] 50,000 unit PO Q7D 06/19/13 Levothyroxine [Synthroid] 50 mcg PO DAILY 06/19/13 Omeprazole [Prilosec] 20 mg PO BID 06/19/13 Biotin 10 mg PO DAILY 12/22/13 Calcium Citrate/Vitamin D3 [Calcium Citrate-Vit D3 Tablet] 2 ea PO BID 06/23/17 Cyanocobalamin (Vitamin B-12) [Vitamin B-12] 500 mcg PO DAILY 06/23/17 Magnesium 500 mg PO DAILY 06/23/17 Tizanidine HCl [Zanaflex] 4 mg PO BID 06/23/17 hydrOXYzine pamoate capsule [Vistaril pamoate capsule] 25 mg PO TID PRN PRN 06/23/17 Acetaminophen [Tylenol] 1,000 mg PO Q8H PRN PRN tab 07/01/17 zonisamide 100 mg capsule 400 mg PO DAILY cap 05/08/18 doxycycline monohydrate 100 mg capsule 100 mg PO BID #20 cap 08/18/18 Hydrocodone Bitart/Apap 5-325 [Harlan 5MG-325MG] 1 tablet PO Q6H PRN PRN 4 Days #10 tablet 08/31/18 The following prescriptions were given: Hydrocodone Bitart/Apap 5-325 [Harlan 5MG-325MG] 1 tablet PO Q6H PRN PRN 4 Days #10 tablet PRN Reason: Pain Primary Care Physician: Ronnell Moreno MD [Primary Care Provider] - Test Results: Test results from this visit will be discussed in further detail at your follow-up appointment, if applicable. Please Follow Up With: Florence Mario MD - after 5pm/weekends call [phone] with any concerns When: Call the office for follow-up in 1 week. Proposed Discharge Date: 08/31/18 08/31/18 1348 <Electronically signed by Florence Mario MD> Date Florence Mario MD CC: Ronnell Moreno MD Observed: 08/31/2018 Status: F Source: [place] CULTURE, DEEP WOUND 12:00 AM [facility] REPOSITORY List Antibiotics Last 48 Hours? LEVAQUIN Has pt arrived? Y Comments: RIGHT BUTTOCK ABSCESS TISSUE Gram Stain Gram Stain 4+ Red Blood Cells Rare Gram positive cocci Rare White Blood Cells Wound Culture #1 Penicillin is the drug of choice for Beta Streptococcal infections. For Penicillin allergic patients, Erythromycin may be used. ORGANISM 1: Streptococcus group C Amount Growth Rare ORGANISM 2: Staphylococcus pseudintermediu Amount Growth Growth Staphylococcus pseudintermediu: REACTION Benzylpenicillin NF <=0.03 R Clindamycin $$ <=0.25 R Inducable Clindamycin Resistan + Erythromycin $ >=8 R Gentamicin $ <=0.5 S Levofloxacin $ <=0.12 S Linezolid $$$$ 1 S Moxifloxicin *NF <=0.25 S Oxacillin NF <=0.25 S Tigecycline $$$$ <=0.12 S Rifampin $$ <=0.5 S Tetracycline NF >=16 R Trimethoprim/Sulfametho $ <=10 S Vancomycin $ <=0.5 S (NF) indicates non-formulary drug at [facility]. Approval by Infectious Disease Specialist required [...] Anaerobic cocci Performed By: #### M100.1500 #### [facility] [address] [place], [address] SURGERY VISIT REPORT Observed: 08/25/2018 Status: F Source: [place] 2:25 PM [facility] REPOSITORY [facility] [address] [place] [address] OFFICE VISIT Date of Service: 08/18/18 MR#: [id number] Acct: [id number] Name: TASHA TORO Rep #: [id number] : 1975 Provider: Florence Mario MD Age/Sex: 42/F Location: [facility] Status: Signed Intake Intake Visit Reasons: buttock abscess Maintenance And Engineering Manager Required: No Is patient in pain?: No [...] in 1 week Florence Mario M.D. Pager: [phone] [facility] [address] [place] [address], [facility], [address] [place] [address] Office: [phone] Medications Refilled: Coding Level of Care Code Off vis,est,level 3 Diagnoses Abscess of buttock, right L02.31 08/25/18 1425 <Electronically signed by Florence Mario MD> Date Florence Mario MD Cosigner Signature: Date (if applicable) CC: SURGERY VISIT REPORT Observed: 08/25/2018 Status: F Source: [place] 2:22 PM [facility] RE[facility]ITORY [facility] [address] [place] [address] [address] [place], [place] [address] OFFICE VISIT Date of Service: 08/25/18 MR#: [id number] Acct: [id number] Name: TASHA TORO Rep #: [id number] : 1975 Provider: Florence Mario MD Age/Sex: 42/F Location: [facility] Status: Signed Intake Intake Visit Reasons: buttock abscess Chief Complaint: I AND D buttock abscess Maintenance And Engineering Manager Required: No Accompanied by: None Is patient [...] 1. Abscess of buttock, right L02.31 Plan curriculum development manager of this right buttock abscess has [...] at this time. Florence Mario M.D. Pager: [phone] [facility] [address] [place] [address], [facility], [address] [place] [address] Office: [phone] Plan Detail Follow Up will schedule I AND D in OR Coding Level of Care Code Off vis,est,level 3 Diagnoses Abscess of buttock, right L02.31 08/25/18 1422 <Electronically signed by Florence Mario MD> Date Florence Mario MD Cosigner Signature: Date (if applicable) CC: SCREENING MAMM (CAD), Observed: 08/25/2018 Status: F Source: [facility] 12:35 PM [facility] RE[facility]ITORY [facility] Imaging Services [address] [facility] [place] [address] SCREENING MAMM (CAD), [facility] MR#: [id number] Acct: [id number] Name: TASHA TORO Rep #: [id number] : 1975 F 42 From: Trent Gresham MD PCP: Ronnell Moreno MD Status: [facility] Study: SCREENING MAMM (CAD), [facility] Date of Exam: 08/25/18 Exam# [id number] Ordering Dr: Luis Alberto Platt MD MAMMOGRAPHY [...] delay biopsy of a clinically suspicious abnormality. [id number] Electronically Signed: Trent Gresham MD at 14:44 EST Tel [phone], Service support , CC: Luis Alberto Platt MD; Ronnell Moreno MD Marketing Community Liaison: Signed PTH, INTACT Collected: 08/24/2018 Status: F Source: [place] 12:36 PM [facility] REPOSITORY TYPE CODE TESTS RESULT OUT OF REFERENCE UNITS RANGE LAB PTH 15-65 pg/mL PTH, Intact 46 Performed By: #### PTHI, B12 #### [facility] [address] [address] #### B1VIT #### [facility] [address] [place] [address] [phone] VITAMIN B12 Collected: 08/24/2018 Status: F Source: [place] 12:36 PM [facility] REPOSITORY TYPE CODE TESTS RESULT OUT OF REFERENCE UNITS RANGE LAB B12 232-1245 pg/mL Vitamin B12 529 Performed By: #### PTHI, B12 #### [facility] [address] [address] #### B1VIT #### [facility] [address] [place] [address] [phone] VITAMIN B1,WHOLE BLD Collected: 08/24/2018 Status: F Source: [place] 12:36 PM [facility] REPOSITORY TYPE CODE TESTS RESULT OUT OF REFERENCE UNITS RANGE LAB VITB1 70-180 nmol/L Vitamin B1 126 Whole Bld Result Comment: (NOTE) INTERPRETIVE INFORMATION: Vitamin B1, Whole Blood This assay measures the concentration of thiamine diphosphate (TDP), the primary active form of vitamin B1. Approximately 90 percent of vitamin B1 present in whole blood is TDP. Thiamine and thiamine monophosphate, which comprise the remaining 10 percent, are not measured. Test developed and characteristics determined by [facility]. See Compliance Statement B: [employer]/ Performed by [facility], [address] [place] [id number] [email or web address], Julio Cesar Sandy MD, Lab. Director Performed By: #### PTHI, B12 #### [facility] [address] [place], [place] [address] #### B1VIT #### [facility] [address] [place] [id number] [phone] FOLATE, SERUM Collected: 08/24/2018 Status: F Source: [place] 12:36 PM [facility] REPOSITORY TYPE CODE TESTS RESULT OUT [...] III (Folate III) [package insert V 1.0 [place]uran]. [facility], [place], [place]: July 2015. Performed By: #### SERFOL #### [facility] [address] [place], [place] [address] CNOV Observed: 08/24/2018 Status: COMPLETED Source: [place] 11:00 AM [facility] REPOSITORY Office Visit (GENBMI) TASHA DE ([id number]) 1975 F Date Time Provider Department 08/24/18 11:00 AM BELKYS TURNER During your visit today, we recorded the following information about you: Pulse Blood pressure Weight Height 72/minute 139/83 76.8 kg 1.605 m Belkys Turner MD 09/06/2018 11:21 AM Signed [facility] Name: Tasha De Index Surgery Date of Surgery: 08/15/2013 Surgeon: Jasmine Dash Surgical Procedure: LAPAROSCOPIC GASTRIC RESTRICTIVE SURG W/ BYPASS AND PATEL-EN-Y </= 150CM Pre-surgical weight: 122.9 kg (271 lb) Override Index Surgery Information? No Other Bariatric Surgeries None Visit: 5 years Today's Visit: Wt 76.8 kg (169 lb 6.4 oz) BMI 29.82 kg/m2 BMI 29.82 kg/(m2) Last Visit: Wt: 76.2 kg (168 lb) BMI: 29.57 kg/(m2) Total weight loss: 46.1 kg (101 lb 9.6 oz) [place] weight: 66.1 kg (145 lb 12 oz) Excess weight: 56.8 kg (125 lb 4 oz) % of excess body weight lost: 46.1 kg (101 lb 9.6 oz) (81.12% of excess weight loss) COMPLICATIONS SINCE LAST VISIT?: NONE DIET INTAKE: tolerates Phase V diet -believes she is getting the recommended amount of protein and fluids -has seen Nitrate Operator recently DAILY SUPPLEMENTS: Calcium: Calcium Citrate w/ vitamin D (1200 - 1500mg) Multivitamin AND Minerals: yes Iron Supplement: yes Vitamin B12: yes Vitamin D3: yes Other: Pepcid and biotin EXERCISE: walking and physically active (doesn't have a car); walks to the store and back (even in the bad weather); ? Not sure if patient does structured exercise beyond walking for daily activity Are you attending any Support Groups? No attendance Current Outpatient Prescriptions: AFLURIA QUAD [id number], PF, 60 mcg/0.5 mL syrg inject 0.5 milliliter intramuscularly ascorbic acid (VITAMIN C) 500 mg tablet Take 500 mg by mouth once daily. CALCIUM CITRATE/VITAMIN D3 (CALCIUM CITRATE + ORAL) Take by mouth. cholecalciferol, Vitamin D3, (VITAMIN D3) 50,000 unit cap capsule TAKE 1 CAPSULE ONCE A WEEK COMPOUNDED PRESCRIPTION KNEE HIGH COMPRESSION STOCKINGS 30- 40 MM. DX: EDEMA DITROPAN XL 10 mg 24 hr tablet Take 1 tablet by mouth once daily. doxycycline (VIBRA-TABS) 100 mg tablet Take 100 mg by mouth twice daily. doxycycline hyclate (VIBRAMYCIN) 100 mg capsule take 1 capsule by mouth twice a day for 7 days doxycycline monohydrate (MONODOX) 100 mg capsule Take 1 capsule by mouth twice daily. duloxetine hcl(CYMBALTA 60 MG CAP) Take one tab twice a day Erythromycin-Benzoyl Peroxide (BENZAMYCIN) gel Apply thin layer to entire acne-prone area(s) of face (optional neck and trunk areas but bewareof bleaching clothing) once to twice per day as directed and tolerated. Ferrous Sulfate 325 mg (65 mg iron) tablet Take 1 tablet by mouth daily with breakfast. fesoterodine (TOVIAZ) 4 mg Tb24 extended release tablet Take 1 tablet by mouth once daily. fexofenadine-pseudoephedrine (NATALYA D) 60-120 mg per tablet Take 1 tablet by mouth twice daily. hydrOXYzine pamoate (VISTARIL) 25 mg capsule Take 1 capsule by mouth three times daily as needed. levoFLOXacin (LEVAQUIN) 500 mg tablet Take 500 mg by mouth once daily. levothyroxine (SYNTHROID) 50 mcg tablet TAKE 1 TABLET DAILY metroNIDAZOLE (FLAGYL) 500 mg tablet Take 500 mg by mouth three times daily. montelukast (SINGULAIR) 10 mg tablet Take 1 tablet by mouth daily at bedtime. mupirocin (BACTROBAN) 2 % ointment Apply 1 application to affected area three times daily. NYAMYC powder APPLY TO AFFECTED AREA(S) THREE TIMES A DAY nystatin (MYCOSTATIN) ointment Apply twice a week to areas prone to rash. omeprazole (PRILOSEC) 20 mg capsule TAKE 1 CAPSULE TWICE A DAY ON EMPTY STOMACH oxybutynin (DITROPAN) 5 mg tablet Take 3 tablets by mouth once daily. VITAMIN PLUS LOW IRON 27 mg iron- 1 mg tab TAKE 1 TABLET DAILY rizatriptan (MAXALT) 10 mg tablet Take 1 tablet by mouth as needed. May repeat in 2 hours if needed tiZANidine (ZANAFLEX) 4 mg tablet TIZANIDINE HCL (TIZANIDINE ORAL) Take by mouth twice daily as needed. triamcinolone acetonide (KENALOG) 0.1 % cream Apply 1 application to affected area three times daily. Apply sparingly to area for rash/itching. zonisamide (ZONEGRAN) 100 mg capsule zonisamide (ZONEGRAN) 50 mg capsule Take 50 mg by mouth once daily. busPIRone (BUSPAR) 5 mg tablet Take 5 mg by mouth twice daily. No current facility-administered medications for this visit. REVIEW OF SYSTEMS: denies nausea, vomiting, dumping syndrome PHYSICAL EXAM: BP 139/83 (BP Site: Right Arm, BP Position: Sitting, BP Cuff Size: Extra Large Adult) Pulse 72 Ht 160.5 cm (5' 3.2) Wt 76.8 kg (169 lb 6.4 oz) LMP 07/01/2017 BMI 29.82 kg/m? Gen: NAD, AANDOx3 Heent: Throat clear, perrl Heart: RRR Lungs: CTAB Abd: Soft, NT, ND, scars look well-healed Ext: No edema noted A/P: 42 y/o lady status post: Laparoscopic Patel-en-Y gastric bypass, EGD, and liver biopsy done on: ?08/15/[address] Dash 1)status post bariatric surgery. Indicates an eventual, long- term weight loss goal of: 150# Indicates the following as possible challenges to ongoing healthy lifestyle changes: Sugar 2)Health issues which have improved/resolved since surgery: -sleep apnea better -cholesterol better Has been going to a functional medicine clinic. Had labs done there recently and brings copies of the results with her. Will scan into [place]. DISPOSITION: Return 1 year to Post-op follow up/ individual office visit EDUCATION: Pt encouraged to continue with positive lifestyle changes and daily/vitamin intake REFERRALS: N/A LABS: Today: as per orders; had outside labs done through another clinic In 12 months: CBC W DIFF, CMP, Vitamin B12, Iron/ TIBC, Lipid panel, TSH, Folate, 25 Hydroxy, HBA1C and B1 Belkys Turner MD - September 06, 2018 ADDENDUM: Labs reviewed. Overall, non-remarkable AG Component Latest Ref Rng AND Units 08/24/2018 Folate >4.7 ng/mL >20.0 Vitamin B12 232 - 1,245 pg/mL 529 Vitamin B1, WB 70 - 180 nmol/L 126 PTH, Intact 15 - 65 pg/mL 46 IMAGING: -DATE OF EXAM: Apr 2018: MRI LIVER WO/W IVCON IMPRESSION: RIGHT HEPATIC HEMANGIOMA. *42 y/o lady status post: Laparoscopic Patel-en-Y gastric bypass, EGD, and liver biopsy done on: ?08/15/[address] Dash 1)status post bariatric surgery. Indicates an eventual, long- term weight loss goal of: Indicates the following as possible challenges to ongoing healthy lifestyle changes: 2)Health issues which have improved/resolved since surgery: Needs to follow up with PCP re: MRI liver findings-? Periodic follow up with u/s? - (OTHER: -04/06/2018: OV BMI/Gorty. Copied from note: A/P: Laparoscopic Patel-en-Y gastric bypass, EGD, and liver biopsy done on: ?08/15/[address] Dash 1)status post bariatric surgery. [...] winter weather: Has a membership to the [employer]-so year- round activity is possible. -walking her dog -has stairs in her home ? -CT abd/pel results discussed with patient. She is now asymptomatic, but will check MRI as recommended by radiology ?DISPOSITION: Return Other 6 months or sooner prn to EDUCATION: Pt encouraged to continue with positive lifestyle changes and daily/vitamin intake REFERRALS: N/A LABS: Today: as per orders Approximately 08/2018: CBC W DIFF, CMP, Vitamin B12, Iron/ TIBC, Lipid panel, TSH, Folate, 25 Hydroxy and HBA1C Referring Provider: BELKYS TURNER [[id number]] Allergies As of Date: 08/24/2018 Noted Allergy Reaction EFFEXOR (VENLAFAXINE HCL) 04/22/2005 5 - Intolerance Comments: WEIGFHT GAIN HCTZ [Other] 04/22/2005 Comments: LOSS OF K+ QUICKLY LIPITOR (ATORVASTATIN CALCIUM) 02/07/2013 14 - Other: See Comments Comments: myalgia PENICILLINS 04/22/2005 2 - Rash PRAVASTATIN 01/17/2013 14 - Other: See Comments Comments: abdominal pain, muscle crampin SILICONE 10/19/2005 [id number] REDUCTASE INHIBIT*04/18/2017 5 - Intolerance TOPAMAX (TOPIRAMATE) 01/17/2013 7 - Swelling ZOCOR (SIMVASTATIN) 03/27/2013 14 - Other: See Comments Comments: Leg muscle pain ZOLOFT (SERTRALINE HCL) 04/22/2005 5 - Intolerance Comments: ANTHONY Date Reviewed: 08/24/2018 Reviewed by: Mell Og MA - Fully Assessed Reason for Visit: Established Patient [175] 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 #:[id number] VITAMIN B1/THIAMINE, WHOLE BLD [[id number]] Order #: [id number] FUTURE PTH INTACT BLD [SQPTHI] Order #: [id number] FUTURE Prescriptions as of 08/24/2018 Sig: AFLURIA QUAD [id number] (PF) 6* inject 0.5 milliliter intramu* ASCORBIC ACID (VITAMIN C) 500* Take 500 mg by mouth once mckenna* CALCIUM CITRATE + ORAL Take by mouth. CHOLECALCIFEROL (VITAMIN D3) * TAKE 1 CAPSULE ONCE A WEEK COMPOUNDED PRESCRIPTION KNEE HIGH COMPRESSION STOCKIN* DITROPAN XL 10 MG TABLET,EXTE* Take 1 tablet by mouth once d* DOXYCYCLINE HYCLATE 100 MG TA* Take 100 mg by mouth twice da* DOXYCYCLINE HYCLATE 100 MG CA* take 1 capsule by mouth twice* DOXYCYCLINE MONOHYDRATE 100 M* Take 1 capsule by mouth twice* CYMBALTA 60 MG CAPSULE,DELAYE* Take one tab twice a day ERYTHROMYCIN-BENZOYL PEROXIDE* Apply thin layer to entire ac* FERROUS SULFATE 325 MG (65 MG* Take 1 tablet by mouth daily * FESOTERODINE ER 4 MG TABLET,E* Take 1 tablet by mouth once d* FEXOFENADINE 60 MG-PSEUDOEPHE* Take 1 tablet by mouth twice * HYDROXYZINE PAMOATE 25 MG CAP* Take 1 capsule by mouth three* LEVOFLOXACIN 500 MG TABLET Take 500 mg by mouth once mckenna* LEVOTHYROXINE 50 MCG TABLET TAKE 1 TABLET DAILY METRONIDAZOLE 500 MG TABLET Take 500 mg by mouth three ti* MONTELUKAST 10 MG TABLET Take 1 tablet by mouth daily * MUPIROCIN 2 % TOPICAL OINTMENT Apply 1 application to affect* NYAMYC 100,000 UNIT/GRAM TOPI* APPLY TO AFFECTED AREA(S) THR* NYSTATIN 100,000 UNIT/GRAM TO* Apply twice a week to areas p* OMEPRAZOLE 20 MG CAPSULE,[place]* TAKE 1 CAPSULE TWICE A DAY ON* OXYBUTYNIN CHLORIDE 5 MG TABL* Take 3 tablets by mouth once * VITAMINS PLUS LOW IR* TAKE 1 TABLET DAILY RIZATRIPTAN 10 MG TABLET Take 1 tablet by mouth as nee* TIZANIDINE 4 MG TABLET TIZANIDINE ORAL Take by mouth twice daily as* TRIAMCINOLONE ACETONIDE 0.1 %* Apply 1 application to affect* ZONISAMIDE 100 MG CAPSULE ZONISAMIDE 50 MG CAPSULE Take 50 mg by mouth once marta* BUSPIRONE 5 MG TABLET Take 5 mg by mouth twice marta* Problem List As Of Date 08/24/2018 Noted Resolved BENIGN HYPERTENSION [I10] INVALID FOR* [...] right knee and leg [S86.911A] INVALID FOR*04/18/2017 Disposition: Return in about 1 year (around 08/24/2019). Follow-up and Disposition History Recorded Encounter Status:Closed by BELKYS TURNER MD on 09/06/18 PROGRESS Observed: 08/24/2018 Status: COMPLETED Source: [place] 10:16 AM [facility] REPOSITORY HNO ID: [id number] Author: Belkys Turner Service: (none) Author Type: Physician Type: Progress Notes Filed: 09/06/2018 11:21 AM Note Text: [facility] Name: Tasha De Index Surgery Date of Surgery: 08/15/2013 Surgeon: Jasmine Dash Surgical Procedure: LAPAROSCOPIC GASTRIC RESTRICTIVE SURG W/ BYPASS AND PATEL-EN-Y </= 150CM Pre-surgical weight: 122.9 kg (271 lb) Override Index Surgery Information? No Other Bariatric Surgeries None Visit: 5 years Today's Visit: Wt 76.8 kg (169 lb 6.4 oz) BMI 29.82 kg/m2 BMI 29.82 kg/(m2) Last Visit: Wt: 76.2 kg (168 lb) BMI: 29.57 kg/(m2) Total weight loss: 46.1 kg (101 lb 9.6 oz) [place] weight: 66.1 kg (145 lb 12 oz) Excess weight: 56.8 kg (125 lb 4 oz) % of excess body weight lost: 46.1 kg (101 lb 9.6 oz) (81.12% of excess weight loss) COMPLICATIONS SINCE LAST VISIT?: NONE DIET INTAKE: tolerates Phase V diet -believes she is getting the recommended amount of protein and fluids -has seen Nitrate Operator recently DAILY SUPPLEMENTS: Calcium: Calcium Citrate w/ vitamin D (1200 - 1500mg) Multivitamin AND Minerals: yes Iron Supplement: yes Vitamin B12: yes Vitamin D3: yes Other: Pepcid and biotin EXERCISE: walking and physically active (doesn't have a car); walks to the store and back (even in the bad weather); ? Not sure if patient does structured exercise beyond walking for daily activity Are you attending any Support Groups? No attendance Current Outpatient Prescriptions: AFLURIA QUAD [id number], PF, 60 mcg/0.5 mL syrg inject 0.5 milliliter intramuscularly ascorbic acid (VITAMIN C) 500 mg tablet Take 500 mg by mouth once daily. CALCIUM CITRATE/VITAMIN D3 (CALCIUM CITRATE + ORAL) Take by mouth. cholecalciferol, Vitamin D3, (VITAMIN D3) 50,000 unit cap capsule TAKE 1 CAPSULE ONCE A WEEK COMPOUNDED PRESCRIPTION KNEE HIGH COMPRESSION STOCKINGS 30- 40 MM. DX: EDEMA DITROPAN XL 10 mg 24 hr tablet Take 1 tablet by mouth once daily. doxycycline (VIBRA-TABS) 100 mg tablet Take 100 mg by mouth twice daily. doxycycline hyclate (VIBRAMYCIN) 100 mg capsule take 1 capsule by mouth twice a day for 7 days doxycycline monohydrate (MONODOX) 100 mg capsule Take 1 capsule by mouth twice daily. duloxetine hcl(CYMBALTA 60 MG CAP) Take one tab twice a day Erythromycin-Benzoyl Peroxide (BENZAMYCIN) gel Apply thin layer to entire acne-prone area(s) of face (optional neck and trunk areas but bewareof bleaching clothing) once to twice per day as directed and tolerated. Ferrous Sulfate 325 mg (65 mg iron) tablet Take 1 tablet by mouth daily with breakfast. fesoterodine (TOVIAZ) 4 mg Tb24 extended release tablet Take 1 tablet by mouth once daily. fexofenadine-pseudoephedrine (NATALYA D) 60-120 mg per tablet Take 1 tablet by mouth twice daily. hydrOXYzine pamoate (VISTARIL) 25 mg capsule Take 1 capsule by mouth three times daily as needed. levoFLOXacin (LEVAQUIN) 500 mg tablet Take 500 mg by mouth once daily. levothyroxine (SYNTHROID) 50 mcg tablet TAKE 1 TABLET DAILY metroNIDAZOLE (FLAGYL) 500 mg tablet Take 500 mg by mouth three times daily. montelukast (SINGULAIR) 10 mg tablet Take 1 tablet by mouth daily at bedtime. mupirocin (BACTROBAN) 2 % ointment Apply 1 application to affected area three times daily. NYAMYC powder APPLY TO AFFECTED AREA(S) THREE TIMES A DAY nystatin (MYCOSTATIN) ointment Apply twice a week to areas prone to rash. omeprazole (PRILOSEC) 20 mg capsule TAKE 1 CAPSULE TWICE A DAY ON EMPTY STOMACH oxybutynin (DITROPAN) 5 mg tablet Take 3 tablets by mouth once daily. VITAMIN PLUS LOW IRON 27 mg iron- 1 mg tab TAKE 1 TABLET DAILY rizatriptan (MAXALT) 10 mg tablet Take 1 tablet by mouth as needed. May repeat in 2 hours if needed tiZANidine (ZANAFLEX) 4 mg tablet TIZANIDINE HCL (TIZANIDINE ORAL) Take by mouth twice daily as needed. triamcinolone acetonide (KENALOG) 0.1 % cream Apply 1 application to affected area three times daily. Apply sparingly to area for rash/itching. zonisamide (ZONEGRAN) 100 mg capsule zonisamide (ZONEGRAN) 50 mg capsule Take 50 mg by mouth once daily. busPIRone (BUSPAR) 5 mg tablet Take 5 mg by mouth twice daily. No current facility-administered medications for this visit. REVIEW OF SYSTEMS: denies nausea, vomiting, dumping syndrome PHYSICAL EXAM: BP 139/83 (BP Site: Right Arm, BP Position: Sitting, BP Cuff Size: Extra Large Adult) Pulse 72 Ht 160.5 cm (5' 3.2) Wt 76.8 kg (169 lb 6.4 oz) LMP 07/01/2017 BMI 29.82 kg/m? Gen: NAD, AANDOx3 Heent: Throat clear, perrl Heart: RRR Lungs: CTAB Abd: Soft, NT, ND, scars look well-healed Ext: No edema noted A/P: 42 y/o lady status post: Laparoscopic Patel-en-Y gastric bypass, EGD, and liver biopsy done on: ?08/15/[address] Dash 1)status post bariatric surgery. Indicates an eventual, long- term weight loss goal of: 150# Indicates the following as possible challenges to ongoing healthy lifestyle changes: Sugar 2)Health issues which have improved/resolved since surgery: -sleep apnea better -cholesterol better Has been going to a functional medicine clinic. Had labs done there recently and brings copies of the results with her. Will scan into [place]. DISPOSITION: Return 1 year to Post-op follow up/ individual office visit EDUCATION: Pt encouraged to continue with positive lifestyle changes and daily/vitamin intake REFERRALS: N/A LABS: Today: as per orders; had outside labs done through another clinic In 12 months: CBC W DIFF, CMP, Vitamin B12, Iron/ TIBC, Lipid panel, TSH, Folate, 25 Hydroxy, HBA1C and B1 Belkys Turner MD - September 06, 2018 ADDENDUM: Labs reviewed. Overall, non-remarkable AG Component Latest Ref Rng AND Units 08/24/2018 Folate >4.7 ng/mL >20.0 Vitamin B12 232 - 1,245 pg/mL 529 Vitamin B1, WB 70 - 180 nmol/L 126 PTH, Intact 15 - 65 pg/mL 46 IMAGING: -DATE OF EXAM: Apr ? 2018: MRI LIVER WO/W IVCON IMPRESSION: RIGHT HEPATIC HEMANGIOMA. *42 y/o lady status post: Laparoscopic Patel-en-Y gastric bypass, EGD, and liver biopsy done on: ?08/15/[address] Dash 1)status post bariatric surgery. Indicates an eventual, long- term weight loss goal of: Indicates the following as possible challenges to ongoing healthy lifestyle changes: 2)Health issues which have improved/resolved since surgery: Needs to follow up with PCP re: MRI liver findings-? Periodic follow up with u/s? - (OTHER: -04/06/2018: OV BMI/Gorty. Copied from note: A/P: Laparoscopic Patel-en-Y gastric bypass, EGD, and liver biopsy done on: ?08/15/[address] Dash 1)status post bariatric surgery. [...] winter weather: Has a membership to the [employer]-so year- round activity is possible. -walking her dog -has stairs in her home ? -CT abd/pel results discussed with patient. She is now asymptomatic, but will check MRI as recommended by radiology ?DISPOSITION: Return Other 6 months or sooner prn to EDUCATION: Pt encouraged to continue with positive lifestyle changes and daily/vitamin intake REFERRALS: N/A LABS: Today: as per orders Approximately 08/2018: CBC W DIFF, CMP, Vitamin B12, Iron/ TIBC, Lipid panel, TSH, Folate, 25 Hydroxy and HBA1C Observed: 08/11/2018 Status: F Source: [place] CULTURE, WOUND 2:00 PM [facility] Gram Stain Gram Stain 2+ White [...] <=0.5 S (NF) indicates non-formulary drug at [facility]. Approval by Infectious Disease Specialist required before non-formulary drugs may be ordered and/or dispensed. * CLSI guidelines does not recommend testing of cephalosporins. This interpretation is deduced from Beta-lactam/penicillin results. Performed By: #### M100.1400 #### [facility] [address] [place], [address] SURGERY VISIT REPORT Observed: 07/27/2018 Status: F Source: [place] 3:04 PM [facility] 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 Florence Mario M.D. Pager: [phone] [facility] [address] [place] [address], [facility], [address] [place] [address] Office: [phone] Orders Orders: Plan Detail Follow Up 1-2 weeks Coding Level of Care Code Global Post Op Diagnoses Abscess of buttock, right L02.31 07/27/18 1504 <Electronically signed by Florence Mario MD> Date Florence Mario MD Cosigner Signature: Date (if applicable) CC: Observed: 07/27/2018 Status: F Source: [place] CULTURE, DEEP WOUND 2:30 PM [facility] Gram Stain Gram Stain 4+ Red [...] 1 S (NF) indicates non-formulary drug at [facility]. Approval by Infectious Disease Specialist required before non-formulary drugs may be ordered and/or dispensed. * CLSI guidelines does not recommend testing of cephalosporins. This interpretation is deduced from Beta-lactam/penicillin results. Cult, Anaerobic No anaerobic bacteria isolated. Performed By: #### M100.1500 #### [facility] [address] [place], [address] SURGERY VISIT REPORT Observed: 07/21/2018 Status: F Source: [place] 11:39 AM [facility] [address] [place] [address] OFFICE VISIT Date of Service: 07/20/18 MR#: [id number] Acct: [id number] Name: TASHA DE Porsche Rep #: [id number] : 1975 Provider: Florence Mario MD Age/Sex: 42/F Location: [facility] Status: Signed Intake Intake Visit Reasons: I AND D Buttock Abscess Chief Complaint: I AND D buttock abscess Maintenance And Engineering Manager Required: No Is patient in pain?: Yes [...] verified: Yes Time out date: 07/20/18 Location: A office Anesthesia: local Incision with: #11 blade Drainage quality: minimal-none Probed cavity: Yes Culture taken: Yes Lesion: drainage (minimal on dressing) Lesion size (cm): 2 (opening now 7mm x7mm [place], 2 cm depth about 1 cm in [...] any additional antibiotics. Florence Mario M.D. Pager: [phone] [facility] [address] [place] [address], [facility], [address] [place] [id number] Office: [phone] Orders Orders: Plan Detail Follow Up 1 Week Coding Level of Care Code Attention Electrician Master Diagnoses Abscess of buttock, right L02.31 Comment 67520 was performed on 07/20/18 07/21/18 1139 <Electronically signed by Florence Mario MD> Date Florence Mario MD Cosigner Signature: Date (if applicable) CC: Ronnell Moreno MD Observed: 07/20/2018 Status: F Source: [place] CULTURE, DEEP WOUND 11:43 AM [facility] Gram Stain Gram Stain 1+ Red [...] 2 S (NF) indicates non-formulary drug at [facility]. Approval by Infectious Disease Specialist required before non-formulary drugs may be ordered and/or dispensed. * CLSI guidelines does not recommend testing of cephalosporins. This interpretation is deduced from Beta-lactam/penicillin results. Cult, Anaerobic No anaerobic bacteria isolated. Performed By: #### M100.1500 #### [facility] [address] [place] [address] [address] [place], [place], [address] SURGERY VISIT REPORT Observed: 07/19/2018 Status: F Source: [place] 2:31 PM [facility] [address] [place] [address] OFFICE VISIT Date of Service: 07/18/18 MR#: [id number] Acct: [id number] Name: TASHA DE Rep #: [id number] : 1975 Provider: Florence Mario MD Age/Sex: 42/F Location: [facility] Status: Signed Intake Intake Visit Reasons: recheck buttock abscess Maintenance And Engineering Manager Required: No Is patient in pain?: No [...] in the office. Florence Mario M.D. Pager: [phone] [facility] [address] [place] [address], [address] [place] [id number] Office: [phone] Plan Detail Follow Up For I AND D and excision of wound Coding Level of Care Code Off vis,est,level 3 Diagnoses Abscess of buttock, right L02.31 07/19/18 1431 <Electronically signed by Florence Mario MD> Date Florence Mario MD Cosigner Signature: Date (if applicable) CC: Ronnell Moreno MD SURGERY VISIT REPORT Observed: 07/11/2018 Status: F Source: [place] 1:40 PM [facility] [address] [place], [place] [address] OFFICE VISIT Date of Service: 07/10/18 MR#: [id number] Acct: [id number] Name: TASHA DE Rep #: [id number] : 1975 Provider: Florence Mario MD Age/Sex: 42/F Location: [facility] Status: Signed Intake Intake Visit Reasons: recheck buttock abscess Chief Complaint: recheck abscess Maintenance And Engineering Manager Required: No Is patient in pain?: No [...] in 7-10 days. Florence Mario M.D. Pager: [phone] [facility] [address] [place] [address], [facility], [address] [place] [address] Office: [phone] Medications New: Plan Detail Follow Up 7-10 days Coding Level of Care Code Off vis,est,level 3 Diagnoses Abscess of buttock, right L02.31 07/11/18 1340 <Electronically signed by Florence Mario MD> Date Florence Mario MD Cosigner Signature: Date (if applicable) CC: FLUOROSCOPY IN OR/PAIN Observed: 06/29/2018 Status: F Source: [facility] MGT 6:40 AM [facility] FLUOROSCOPY IN OR/PAIN MGT Ordering Physician: Mao [...] VISIT REPORT Observed: 06/28/2018 Status: F Source: [place] 12:46 PM [facility] [address] [place] [address] OFFICE VISIT Date of Service: 06/27/18 MR#: [id number] Acct: [id number] Name: TASHA DE Rep #: [id number] : 1975 Provider: Florence Mario MD Age/Sex: 42/F Location: [facility] Status: Signed Intake Intake Visit Reasons: recheck buttock abscess Chief Complaint: recheck abscess Maintenance And Engineering Manager Required: No Is patient in pain?: No [...] [ Formula Tablet] 1 ea PO DAILY 10/12/17 [History Confirmed 06/27/18] Tizanidine HCl [Zanaflex] 4 [...] completion of antibiotics. Florence Mario M.D. Pager: [phone] [facility] [address] [place] [address], [facility], [address] [place] [address] Office: [phone] Medications New: Plan Detail Follow Up 1-2 weeks Coding Level of Care Code Off vis,est,level 3 Diagnoses Abscess of buttock, right L02.31 06/28/18 1246 <Electronically signed by Florence Mario MD> Date Florence Mario MD [facility] Signature: Date (if applicable) CC: Ronnell Moreno MD FLUOROSCOPY IN OR/PAIN Observed: 06/22/2018 Status: F Source: [facility] MGT 6:42 AM [facility] FLUOROSCOPY IN OR/PAIN MGT Ordering Physician: Mao [...] VISIT REPORT Observed: 06/19/2018 Status: F Source: [place] 9:19 AM [facility] [address] [place] [address] [address] [place] [address] OFFICE VISIT Date of Service: 06/19/18 MR#: [id number] Acct: [id number] Name: TASHA DE Rep #: [id number] : 1975 Provider: Florence Mario MD Age/Sex: 42/F Location: [facility] Status: Signed Intake Intake Visit Reasons: 10 day F/U Meds Abscess R Buttock Maintenance And Engineering Manager Required: No Is patient in pain?: No Allergies Penicillins [PCN] Allergy (Verified 06/19/18 09:10) Rash silicone [Silicone] Allergy (Verified 06/19/18 09:10) Rash doxycycline Adverse Reaction (Verified 06/19/18 09:10) Other hydrochlorothiazide Adverse Reaction (Verified 06/19/18 09:10) Other topiramate [From Topamax] Adverse Reaction (Verified 06/19/18 09:10) Chest tightness [...] questions this time. Florence Mario M.D. Pager: [phone] [facility] [address] [place] [address], [facility], [address] [place] [address] Office: [phone] Medications New: Plan Detail Follow Up 2 Weeks Coding Level of Care Code Off vis,est,level 3 Diagnoses Abscess of buttock, right L02.31 06/19/18 0919 <Electronically signed by Florence Mario MD> Date Florence Mario MD Cosigner Signature: Date (if applicable) CC: Ronnell Moreno MD FLUOROSCOPY IN OR/PAIN Observed: 06/15/2018 Status: F Source: [facility] MGT 6:53 AM [facility] FLUOROSCOPY IN OR/PAIN MGT Ordering Physician: Mao [...] VISIT REPORT Observed: 06/02/2018 Status: F Source: [place] 10:23 AM [facility] [address] [place] [address] [address] [place] [address] OFFICE VISIT Date of Service: 06/01/18 MR#: [id number] Acct: [id number] Name: JIMTASHA L Rep #: [id number] : 1975 Provider: Florence Mario MD Age/Sex: 42/F Location: [facility] Status: Signed Intake Intake Visit Reasons: 1 WK F/U Abscess R Buttock Chief Complaint: recheck abscess Maintenance And Engineering Manager Required: No Is patient in pain?: No [...] culture is resulted. Florence Mario M.D. Pager: [phone] [facility] [address] [place] [address], [facility], [address] [place] [address] Office: [phone] Orders Orders: Medications New: Plan Detail Follow Up Await wound culture Coding Level of Care Code Off vis,est,level 3 Diagnoses Abscess of buttock, right L02.31 06/02/18 1023 <Electronically signed by Florence Mario MD> Date Florence Mario MD Cosigner Signature: Date (if applicable) CC: Ronnell Moreno MD Observed: 06/01/2018 Status: F Source: [place] CULTURE, DEEP WOUND 1:00 PM [facility] Gram Stain Gram Stain 2+ Red [...] 1 S (NF) indicates non-formulary drug at [facility]. Approval by Infectious Disease Specialist required [...] Anaerobic cocci Performed By: #### M100.1500 #### [facility] [address] [place], [address] SURGERY VISIT REPORT Observed: 05/16/2018 Status: F Source: [place] 1:32 PM [facility] [address] [place] [address] OFFICE VISIT Date of Service: 05/16/18 MR#: [id number] Acct: [id number] Name: TASHA DE Porsche Rep #: [id number] : 1975 Provider: Florence Mario MD Age/Sex: 42/F Location: [facility] Status: Signed Intake Intake Visit Reasons: 1 WK F/U Abscess R Buttock Maintenance And Engineering Manager Required: No Is patient in pain?: No [...] is agreeable plan. Florence Mario M.D. Pager: [phone] [facility] [address] [place] [address], [facility], [address] [place] [address] Office: [phone] Plan Detail Follow Up 2 Weeks Coding Level of Care Code Off vis,est,level 3 Diagnoses Abscess of buttock, right L02.31 05/16/18 1332 <Electronically signed by Florence Mario MD> Date Florence Mario MD Cosigner Signature: Date (if applicable) CC: Ronnell Moreno MD SURGERY VISIT REPORT Observed: 05/08/2018 Status: F Source: [place] 3:21 PM [facility] [address] [place], [place] [address] OFFICE VISIT Date of Service: 05/08/18 MR#: [id number] Acct: [id number] Name: TASHA DE Rep #: [id number] : 1975 Provider: Florence Mario MD Age/Sex: 42/F Location: [facility] Status: Signed Intake Vital Signs05/08/18 Height 5 [...] in 1 week. Florence Mario M.D. Pager: [phone] [facility] [address] [place] [address], [facility], [address] [place] [address] Office: [phone] Medications New: levofloxacin stop tizanidine, hydroxyzine while on 500 mg PO DAILY Florence Mario MD abx Discontinued: oxycodone Discontinued Reason: Pt10 mg (2 x 5 mg) PO Q6H PRN PRN Pain Manisha Walden no longer taking Plan Detail Follow Up 1 Week Coding Level of Care Code Off vis,new,level 3 Diagnoses Abscess of buttock, right L02.31 05/08/18 1521 <Electronically signed by Florence Mario MD> Date Florence Mario MD Cosigner Signature: Date (if applicable) CC: Ronnell Moreno MD Observed: 05/03/2018 Status: F Source: [place] CULTURE, WOUND 12:00 AM [facility] Gram Stain Gram Stain Rare White [...] <=20 S (NF) indicates non-formulary drug at [facility]. Approval by Infectious Disease Specialist required [...] 2 S (NF) indicates non-formulary drug at [facility]. Approval by Infectious Disease Specialist required before non-formulary drugs may be ordered and/or dispensed. * CLSI guidelines does not recommend testing of cephalosporins. This interpretation is deduced from Beta-lactam/penicillin results. Performed By: #### M100.1400 #### [facility] [address] [place], [address] MRI LIVER WO/W Observed: 04/17/2018 Status: F Source: [place] IVCON 3:39 PM [facility] REPOSITORY * * *Final Report* * * DATE OF EXAM: Apr 17 2018 3:39PM [facility] 0727 - MRI LIVER WO/W IVCON / PROCEDURE REASON: multiple diagnoses * * * * Physician Interpretation * * * * MRI OF THE ABDOMEN WITHOUT AND WITH CONTRAST CLINICAL HISTORY: Liver mass. Further characterization requested. COMPARISON: CT abdomen and pelvis 12/01/2016 TECHNIQUE: Using the torso phased array coil, axial STIR, T1 weighted in- and [id number] and coronal HASTE images were obtained. Flow [...] Patel-en-Y gastric bypass. IMPRESSION: RIGHT HEPATIC HEMANGIOMA. Marketing Community Liaison: [place] Transcribe Date/Time: Apr 17 2018 4:25P Dictated by : TRAVIS RAGLAND MD This examination was interpreted and the report reviewed and electronically signed by: TRAVIS RAGLAND MD on Apr 17 2018 4:32PM EST [id number] Observed: 04/17/2018 Status: COMPLETED Source: [place] 3:26 PM [facility] REPOSITORY O ID: [id number] Author: Shelley (Rt) Augusto Barr Service: (none) Author Type: Vascular Sonographer Type: Progress Notes Filed: 04/17/2018 3:27 PM [...] OFFICE VISIT Observed: 04/12/2018 Status: UNK Source: [facility] ([facility]URO-GENERAL) 2:06 PM [facility] Chief Complaint [...] 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 Results/Data I have reviewed the following laboratory studies, radiology studies and other diagnostic testing: MRI Brain w/wo [id number] 10:40AMMaMelissa wilson [Nov 28, 2017 2:55PM Melissa Palomares] Reason: Unspecified for MRI Brain w/wo Contrast Test NameResultFlagReference MRI Brain w/wo Contrast(Report) Interpreted by: JON RENNER 12/13/17 10:54 Patient Name: TASHA DE STUDY: MRI BRAIN W/WO CONTRAST; 12/13/2017 10:40 am INDICATION: Intractable migraine. Evaluate for intracranial abnormality. Approved. COMPARISON: None. ACCESSION NUMBER(S): [id number] ORDERING CLINICIAN: MELISSA PALOMARES TECHNIQUE: The brain [...] acute infarction. THIS EXAMINATION WAS INTERPRETED AT [facility] Transcribed by: [email or web address], User Electronically signed by: Barby, User 12/13/17 10:54 Diagnoses/Problems Intractable chronic migraine [...] status migrainosus; ASHWIN = N; Sent To: [facility] Renew: Zonisamide 100 MG Oral Capsule; TAKE 4 CAPSULES AT BEDTIME Rx By: Melissa Palomares; Dispense: 90 Days ; #:360 Capsule; Refill: 3;For: Intractable chronic migraine without aura and without status migrainosus; ASHWIN = N; Sent To: [facility] Follow-up visit in 6 months Outpatient Follow-up Status: Hold For - Scheduling Requested for: [id number] Ordered Stat;For: Intractable chronic migraine without aura and without status migrainosus; Ordered By: Melissa Palomares Performed: Due: 11Jul2018 Provider Impressions Recurrent VILLEGAS consistent with migraine with aura; significant benefit from zonisamide 100 mg 4 qhs. Patient Discussion/Summary 1. Continue the same dose of zonisamide 100 mg 4 every night at bedtime. New prescription for 3 months sent to [facility]. 2. Continue the rizatriptan 10 mg as needed. New prescription sent to the [facility]. 3. Some suggestions for preventing or controlling your migraines: - Magnesium (preferably glycinate but oxide or sulfate are acceptable 400-500 mg daily is recommended as a potential migraine preventative treatment by the [employer]. Side effects include diarrhea. - [...] (Author) PROGRESS Observed: 04/06/2018 Status: COMPLETED Source: [place] 11:08 AM [facility] REPOSITORY O ID: [id number] Author: Bharti (Jennifer) Ronny Service: (none) Author [...] level, Iron 45 mg and calcium citrate 8879-0098 mg/day . It is okay to use [...] Partially Actions to implement interventions: Diet History: Cymro yogurt (2) egg (2) and cheese (1) [...] [Other]; Lipitor [Atorvastatin Calcium]; Penicillins; Pravastatin; Silicone; Ylkssei-Bct-Thd Reductase Inhibitors; Topamax [Topiramate]; Zocor [Simvastatin]; Zoloft [...] 20-30 minutes/session. Acquired assistance for vitamin/minerals from [employer] program) due to income limitations. Takes all recommended supplementation Nutrition Diagnosis: Overweight Obesity, related to; food/nutrition - related knowledge deficit, as evidenced by BMI above normative standard for age and gender. Nutrition Intervention 04/06/2018: Modify type and amount of intake at meals and snacks 1. Exercise - 30 minutes exercise walking/yardwork, swimming, lifting 2. Vitamin/minerals: [facility] che[facility] (2) per day (includes D and B12) plus (1) 60 mg iron, PLUS (3) Calcium citrate chews 3. Protein: Continue to eat 5 small meals/day (2 Cymro yogurt, 2 ounces meat protein, 2 egg/cheese - minimum 70 grams protein/day 4. Continue to avoid all added sugar in food/snacks/drinks - 64 ounces per day water. Nutrition Monitoring AND Evaluation: BMI < 28 Criteria: weight check Need for Follow up: August 2018 for annual appointment Referred/Supervised by: Johnny/Johnny GERMAIN Billing Type: Re-assess/15 min 2 units SIGNATURE: Bharti Welsh RD PATIENT NAME: Tasha Morrell Jim DATE: April 06, 2018 TIME: 11:08 AM PAGER: [phone] CNCNPATED Observed: 04/06/2018 Status: COMPLETED Source: [place] 11:00 AM [facility] REPOSITORY Education (GENBMI) TASHA DE ([id number]) 1975 F Date Time Provider Department 04/06/18 11:00 AM [facility] Reason for Visit: Patient Education [91] Reassessment [...] level, Iron 45 mg and calcium citrate 5219-3063 mg/day . It is okay to use [...] Partially Actions to implement interventions: Diet History: Cymro yogurt (2) egg (2) and cheese (1) [...] [Other]; Lipitor [Atorvastatin Calcium]; Penicillins; Pravastatin; Silicone; Umktbeg-Uer-Flo Reductase Inhibitors; Topamax [Topiramate]; Zocor [Simvastatin]; Zoloft [...] 20-30 minutes/session. Acquired assistance for vitamin/minerals from [employer] ([employer] Assist program) due to income limitations. Takes [...] Continue to eat 5 small meals/day (2 Cymro yogurt, 2 ounces meat protein, 2 egg/cheese [...] April 06, 2018 TIME: 11:08 AM PAGER: [phone] Primary Visit Diagnosis:Overweight (BMI 25.0-29.9) [E66.3] Other [...] Comments: abdominal pain, muscle crampin SILICONE 10/19/2005 REKZYKY-RGL-JPP REDUCTASE INHIBIT*04/18/2017 5 - Intolerance TOPAMAX (TOPIRAMATE) 01/17/2013 7 - Swelling ZOCOR (SIMVASTATIN) 03/27/2013 14 - Other: See Comments Comments: Leg muscle pain ZOLOFT (SERTRALINE HCL) 04/22/2005 5 - Intolerance Comments: ANTHONY Date Reviewed: 04/06/2018 Reviewed by: Bharti (Jennifer) Ronny - Fully Assessed Prescriptions as of [...] a day Letter Text Bariatric and Metabolic [place]/M61 [address] [place], [place] [address] April 06, 2018 Tasha De [address] [place] [phone] [facility] Nutrition Intervention 04/06/2018: Modify type and amount of intake at meals and snacks 1. Exercise - 30 minutes exercise walking/yardwork, swimming, lifting 2. Vitamin/minerals: Celebrate complete chews (2) per day (includes D and B12) plus (1) 60 mg iron, PLUS (3) Calcium citrate chews 3. Protein: Continue to eat 5 small meals/day (2 Cymro yogurt, 2 ounces meat protein, 2 egg/cheese - minimum 70 grams protein/day 4. Continue to avoid all added sugar in food/snacks/drinks - 64 ounces per day water. Nutrition Monitoring AND Evaluation: BMI < 28 Criteria: weight check Need for Follow up: August 2018 for annual appointment Bharti Welsh RD Encounter Status:Closed by BHARTI WELSH on 04/06/18 CNOV Observed: 04/06/2018 Status: COMPLETED Source: [place] 10:30 AM [facility] REPOSITORY Office Visit (GENBMI) TASHA DE ([id number]) 1975 F Date Time Provider Department 04/06/18 10:30 AM BELKYS TURNER During your visit today, [...] Total weight loss: 46.7 kg (103 lb) [place] weight: 66.1 kg (145 lb 12 oz) Excess weight: 56.8 kg (125 lb 4 oz) % of excess body weight lost: 46.7 kg (103 lb) (82.24% of excess weight loss) COMPLICATIONS SINCE LAST VISIT?: NONE DIET INTAKE: tolerates Phase V diet -believes she is sometimes getting the recommended amount of protein and fluids -has an appointment coming up to see Nitrate Operator DAILY SUPPLEMENTS: Calcium: Calcium Citrate w/ vitamin [...] winter weather: Has a membership to [employer]-so year- round activity is possible. -walking her [...] dietary and nutrition intake-provided with information on StackSearch website/phone zaina After discussion: She is interested in psmf diet discussed-she will talk it over with Nitrate Operator. She believes this will be especially helpful [...] the MRI. AG Referring Provider: BELKYS TURNER [[id number]] Allergies As of Date: 04/06/2018 Noted Allergy Reaction DOXYCYCLINE HCL 01/24/2008 EFFEXOR (VENLAFAXINE HCL) 04/22/2005 5 - Intolerance Comments: WEIGFHT GAIN HCTZ [Other] 04/22/2005 Comments: LOSS OF K+ QUICKLY LIPITOR (ATORVASTATIN CALCIUM) 02/07/2013 14 - Other: See Comments Comments: myalgia PENICILLINS 04/22/2005 2 - Rash PRAVASTATIN 01/17/2013 14 - Other: See Comments Comments: abdominal pain, muscle crampin SILICONE 10/19/2005 XMDUPFB-VHE-JKN REDUCTASE INHIBIT*04/18/2017 5 - Intolerance TOPAMAX (TOPIRAMATE) 01/17/2013 7 - Swelling ZOCOR (SIMVASTATIN) 03/27/2013 14 - Other: See Comments Comments: Leg muscle pain ZOLOFT (SERTRALINE HCL) 04/22/2005 5 - Intolerance Comments: ANTHONY Date Reviewed: 04/06/2018 Reviewed by: Bharti Go) Ronny - Fully Assessed Reason for Visit: Established Patient [175] Primary Visit Diagnosis:Liver lesion [K76.9] Other Visit Diagnoses: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] S/P bariatric surgery [Z98.84] S/P gastric bypass [Z98.84] Overweight with body mass index (BMI) 25.0-29.9 [E66.3] Order(s):MRI LIVER WO/W IVCON [6202371] Order #: [id number] FUTURE [] iv contrast (will be provided [...] 04/09/18 PROGRESS Observed: 04/06/2018 Status: COMPLETED Source: [place] 10:24 AM [facility] REPOSITORY HNO ID: [id number] Author: Belkys Turner Service: (none) Author Type: [...] Total weight loss: 46.7 kg (103 lb) [place] weight: 66.1 kg (145 lb 12 oz) Excess weight: 56.8 kg (125 lb 4 oz) % of excess body weight lost: 46.7 kg (103 lb) (82.24% of excess weight loss) COMPLICATIONS SINCE LAST VISIT?: NONE DIET INTAKE: tolerates Phase V diet -believes she is sometimes getting the recommended amount of protein and fluids -has an appointment coming up to see Nitrate Operator DAILY SUPPLEMENTS: Calcium: Calcium Citrate w/ vitamin [...] winter weather: Has a membership to [employer]-so year- round activity is possible. -walking her [...] dietary and nutrition intake-provided with information on [employer] website/phone zaina After discussion: She is interested in psmf diet discussed-she will talk it over with Nitrate Operator. She believes this will be especially helpful [...] MRI. AG Observed: 03/24/2018 Status: F Source: [place]ILL[place] CULTURE, WOUND 12:00 AM [facility] REPOSITORY Comments: LEFT BUTTOCK ABSCESS Gram Stain Gram Stain No White Blood Cells No organisms seen Wound Culture No growth aerobically. Performed By: #### M100.1400 #### [facility] [address] [place], [address] CBC Collected: 02/10/2018 Status: F Source: [place] 9:18 AM [facility] REPOSITORY TYPE CODE TESTS RESULT OUT [...] #### CBC, PTT, HFP, TSH, VITD #### [facility] [address] [place], [place] [address] APTT Collected: 02/10/2018 Status: F Source: [place] 9:18 [facility] REPOSITORY TYPE CODE TESTS RESULT OUT OF [...] laboratory APTT reagent in use throughout the [facility]. Performed By: #### CBC, PTT, HFP, TSH, VITD #### [facility] [address] [place], [place] [address] HEPATIC FUNCTN PANEL Collected: 02/10/2018 Status: F Source: [place] 9:18 AM [facility] REPOSITORY TYPE CODE TESTS RESULT OUT [...] #### CBC, PTT, HFP, TSH, VITD #### [facility] [address] [place], [place] [address] TSH Collected: 02/10/2018 Status: F Source: [place] 9:18 AM [facility] REPOSITORY TYPE CODE TESTS RESULT OUT OF RANGE REFERENCE UNITS LAB TSH 0.400-5.500 uU/mL TSH 3.140 Result Comment: If the patient is , TSH reference range varies by gestational period: First Trimester 0.100-2.500 uU/mL Second Trimester 0.200-3.000 uU/mL Third Trimester 0.300-3.000 uU/mL References: 1. Hicks L, Liset M, Randal EK, et al. Management of Thyroid Dysfunction during and : An Endocrine Society Clinical Practice Guideline. J Clin Endocrinol Metab, 2012:97:8330-8367. 2. Vinod BLACKBURN. Overview of thyroid disease in . UpToDate. 2016. Accessed on February 27, 2016. Performed By: #### CBC, PTT, HFP, TSH, VITD #### [facility] [address] [place], [place] [address] VITAMIN D 25 HYDROXY Collected: 02/10/2018 Status: F Source: [place] 9:18 AM [facility] REPOSITORY TYPE CODE TESTS RESULT OUT OF REFERENCE UNITS RANGE LAB VITD 31.0-80.0 ng/mL Vitamin D 25 60.4 Hydroxy Result Comment: Classification of 25 [place] Vitamin D status: Insufficiency/Moderate Deficiency: < or = 30 ng/mL Sufficiency/Optimal Levels: 31 to 80 ng/mL Toxicity: > 100 ng/mL Test performed by chemiluminescent immunoassay. Performed By: #### CBC, PTT, HFP, TSH, VITD #### [facility] [address] [place], [place] [address] PROGRESS Observed: 02/10/2018 Status: COMPLETED Source: [place] 8:54 AM [facility] REPOSITORY HNO ID: [id number] Author: Dao Gan (Prince) Ovidio Service: (none) [...] abdominal pain, muscle crampin - Silicone - Cccukad-Wqq-Dsk Red* Intolerance - Topamax [Topiramate] Swelling - [...] OR W/BRUSH/WASH 05/17/2007 EGD - ESSURE 2008 [place] and HSG showed no open tubes - GASTRIC BYPASS HX 08/15/13 - HYSTERECTOMY 05/26/2017 [facility] - MIDLINE INSERTION/CONSULT 08/15/2013 - PAST SURGICAL [...] reviewed, red flags and action plan discussed. DENNIS Prajapati GEOGRAPHIC INFORMATION SYSTEMS ENGINEER.APN CNOV Observed: 02/10/2018 Status: COMPLETED Source: [place] 8:40 AM [facility] REPOSITORY Office Visit (FAMPWS) TASHA DE ([id number]) 1975 F Date Time Provider Department 02/10/18 8:40 AM DAO NOLAN (ASSOCIATE SCHOOL PSYCHOLOGIST) FAMPWS During your visit today, we recorded the following information about you: Temperature Pulse Blood pressure Weight 97.5 degrees 72/minute 100/76 79.4 kg DENNIS Prajapati GEOGRAPHIC INFORMATION SYSTEMS ENGINEER.APN 02/10/2018 10:27 AM Signed Chief Complaint Patient [...] abdominal pain, muscle crampin - Silicone - Vqnzrdn-Qyi-Xxq Red* Intolerance - Topamax [Topiramate] Swelling - [...] W/O OR W/BRUSH/WASH 05/17/2007 EGD - ESSURE 2007 [place] and [facility] showed no open tubes - GASTRIC BYPASS HX 08/15/13 - HYSTERECTOMY 05/26/2017 [facility] - MIDLINE INSERTION/CONSULT 08/15/2013 - PAST SURGICAL [...] and action plan discussed. Dao Nolan, MSN GEOGRAPHIC INFORMATION SYSTEMS ENGINEER.APN Referring Provider: SELF [[id number]] Allergies As of Date: 02/10/2018 Noted Allergy Reaction DOXYCYCLINE HCL 01/24/2008 EFFEXOR (VENLAFAXINE HCL) 04/22/2005 5 - Intolerance Comments: ZOLTANALEXISAUSTIN GAIN HCTZ [Other] 04/22/2005 Comments: LOSS OF K+ QUICKLY LIPITOR (ATORVASTATIN CALCIUM) 02/07/2013 14 - Other: See Comments Comments: myalgia PENICILLINS 04/22/2005 2 - Rash PRAVASTATIN 01/17/2013 14 - Other: See Comments Comments: abdominal pain, muscle crampin SILICONE 10/19/2005 BBNWDLL-IFS-[id number] REDUCTASE INHIBIT*04/18/2017 5 - Intolerance TOPAMAX (TOPIRAMATE) [...] cyst [L72.3] Order(s):TSH BLD [SQTSH] Order #: [id number] FUTURE CBC [SQCBC] Order #: [id number] FUTURE ACTIVATED PTT [SQPTT] Order #: [id number] FUTURE HEPATIC FUNCTION PNL [SQHFP] Order #: [id number] FUTURE Prescriptions as of 02/10/2018 Sig: MUPIROCIN [...] 02/10/18 PROGRESS Observed: 01/19/2018 Status: COMPLETED Source: [place] 7:57 AM [facility] REPOSITORY HNO ID: [id number] Author: Thuy Lemon (Terese) Service: (none) Author Type: Nurse Practitioner Type: [...] [Other]; Lipitor [Atorvastatin Calcium]; Penicillins; Pravastatin; Silicone; Ptfluln-Stm-Uao Reductase Inhibitors; Topamax [Topiramate]; Zocor [Simvastatin]; Zoloft [...] no improvement with topical ointment Thuy Lemon APRN.TERESE BOLIVAR Observed: 01/19/2018 Status: COMPLETED Source: [place] 7:40 AM [facility] REPOSITORY Office Visit (FAMPWS) TASHA DE ([id number]) 1975 F Date Time Provider Department 01/19/18 7:40 AM THUY LEMON ([facility]) FAMPWS During your visit today, we recorded the following information about you: Temperature Pulse Respiration Blood pressure 97.6 degrees 76/minute 16/minute 104/78 Weight 81.2 kg Thuy Lemon (Assistant Health Educator) 01/19/2018 8:21 AM Signed 01/19/2018 Patient presents [...] [Other]; Lipitor [Atorvastatin Calcium]; Penicillins; Pravastatin; Silicone; Ynpyfym-Fpi-Zhb Reductase Inhibitors; Topamax [Topiramate]; Zocor [Simvastatin]; Zoloft [...] no improvement with topical ointment Thuy Lemon APRN.APN Referring Provider: SELF [200] Allergies As of Date: 01/19/2018 Noted Allergy Reaction DOXYCYCLINE HCL 01/24/2008 EFFEXOR (VENLAFAXINE HCL) 04/22/2005 5 - Intolerance Comments: WEIGFHT GAIN HCTZ [Other] 04/22/2005 Comments: LOSS OF K+ QUICKLY LIPITOR (ATORVASTATIN CALCIUM) 02/07/2013 14 - Other: See Comments Comments: myalgia PENICILLINS 04/22/2005 2 - Rash PRAVASTATIN 01/17/2013 14 - Other: See Comments Comments: abdominal pain, muscle crampin SILICONE 10/19/2005 TGMYXPW-VQB-NTS REDUCTASE INHIBIT*04/18/2017 5 - Intolerance TOPAMAX (TOPIRAMATE) [...] End MUPIROCIN 2 % TOPICAL OINTMENT 1 * 1 01/19/2018 Route: TOPICAL Sig: Apply 1 application to affected area three times daily. Medications Discontinued During This Encounter tiZANidine (ZANAFLEX) 4 mg tablet 01/11/2018 01/19/2018 Class: Historical Med Route: ORAL Sig: Take by mouth as directed. Disc: Duplicate Entry Encounter Status:Closed by THUY LEMON on 01/19/18 PROGRESS Observed: 12/22/2017 Status: COMPLETED Source: [place] 9:09 AM [facility] REPOSITORY HNO ID: [id number] Author: Bharti Welsh Service: (none) Author Type: Registered Dietitian Type: [...] [Other]; Lipitor [Atorvastatin Calcium]; Penicillins; Pravastatin; Silicone; Oqhuljs-Kmd-Yer Reductase Inhibitors; Topamax [Topiramate]; Zocor [Simvastatin]; Zoloft [...] level, Iron 45 mg and calcium citrate 6255-1575 mg/day . It is okay to use [...] December 22, 2017 TIME: 9:09 AM PAGER: [phone] CNCNPATED Observed: 12/22/2017 Status: COMPLETED Source: [place] 9:00 AM [facility] REPOSITORY Education (GENBMI) TASHA DE ([id number]) 1975 F Date Time Provider Department 12/22/17 [...] [Other]; Lipitor [Atorvastatin Calcium]; Penicillins; Pravastatin; Silicone; Lcwbmya-Xay-Gmw Reductase Inhibitors; Topamax [Topiramate]; Zocor [Simvastatin]; Zoloft [...] level, Iron 45 mg and calcium citrate 7702-2929 mg/day . It is okay to use [...] December 22, 2017 TIME: 9:09 AM PAGER: [phone] Primary Visit Diagnosis:Class 1 obesity due to [...] Comments: abdominal pain, muscle crampin SILICONE 10/19/2005 PKSCRII-AQJ-OOD REDUCTASE INHIBIT*04/18/2017 5 - Intolerance TOPAMAX (TOPIRAMATE) [...] a day Letter Text Bariatric and Metabolic [place]/M61 [address] [place], [place] [address] December 22, 2017 Tasha De [address] [facility] [address] [facility] Nutrition Intervention 12/22/2017: Comprehensive Nutrition Education 1.Take daily multivitamin/multi mineral plus VIt D3 3,000 IU, Vit B12 500 mcg every other day due to elevated level, Iron 45 mg and calcium citrate 8945-1074 mg/day . It is okay to use [...] intracranial abnormality. Approved. COMPARISON: None. ACCESSION NUMBER(S): [id number] ORDERING CLINICIAN: MELISSA PALOMARES TECHNIQUE: The brain [...] acute infarction. THIS EXAMINATION WAS INTERPRETED AT [facility] Electronically signed by: JON RENNER MD CNOV Observed: 11/29/2017 Status: COMPLETED Source: [place] 10:00 AM [facility] REPOSITORY Office Visit (GENBMI) TASHA DE ([id number]) 1975 F Date Time Provider Department 11/29/17 10:00 AM BELKYS TURNER During your visit today, we recorded the following information about you: Pulse Blood pressure Weight Height 70/minute 117/66 84.4 kg 1.607 m Last Period 07/01/17 Belkys Turner MD 04/03/2018 9:52 AM Addendum Name: Tasha De Index Surgery Date of [...] Total weight loss: 38.6 kg (85 lb) [place] weight: 66.1 kg (145 lb 12 oz) [...] dietary and nutrition intake-provided with information on StackSearch website/phone zaina After discussion: She is interested in psmf diet discussed-she will talk it over with Nitrate Operator. She believes this will be especially helpful [...] is 32.67 kg/(m2). Referring Provider: BELKYS TURNER [[id number]] Allergies As of Date: 11/29/2017 Noted Allergy Reaction DOXYCYCLINE HCL 01/24/2008 EFFEXOR (VENLAFAXINE HCL) 04/22/2005 5 - Intolerance Comments: WEIGFHT GAIN HCTZ [Other] 04/22/2005 Comments: LOSS OF K+ QUICKLY LIPITOR (ATORVASTATIN CALCIUM) 02/07/2013 14 - Other: See Comments Comments: myalgia PENICILLINS 04/22/2005 2 - Rash PRAVASTATIN 01/17/2013 14 - Other: See Comments Comments: abdominal pain, muscle crampin SILICONE 10/19/2005 UAFECND-TEU-QEY REDUCTASE INHIBIT*04/18/2017 5 - Intolerance TOPAMAX (TOPIRAMATE) 01/17/2013 7 - Swelling ZOCOR (SIMVASTATIN) 03/27/2013 14 - Other: See Comments Comments: Leg muscle pain ZOLOFT (SERTRALINE HCL) 04/22/2005 5 - Intolerance Comments: MAHSAQUE Date Reviewed: 11/29/2017 Reviewed by: Radha Morgan [...] [S86.911A] INVALID FOR*04/18/2017 Visit Notes: >> Radha Morgan Brooke Victoria Nov 29, 2017 10:02 AM Status: Signed Body mass index is 32.67 kg/(m2). Disposition: Return in about 3 months (around 03/01/2018) for follow up. Follow-up and Disposition History Recorded Encounter Status:Closed by BELKYS TURNER MD on 12/19/17 PROGRESS Observed: 11/29/2017 Status: COMPLETED Source: [place] 8:25 AM [facility] REPOSITORY [facility] ID: [id number] Author: Belkys Turner Service: (none) Author Type: [...] Total weight loss: 38.6 kg (85 lb) [place] weight: 66.1 kg (145 lb 12 oz) [...] dietary and nutrition intake-provided with information on StackSearch website/phone zaina After discussion: She is interested in psmf diet discussed-she will talk it over with Nitrate Operator. She believes this will be especially helpful [...] METABOLIC PANEL Collected: 11/28/2017 Status: F Source: [place] 3[facility]00 PM [facility] REPOSITORY TYPE CODE TESTS [...] CALCIUM 9.3 Performed By: #### BMP #### [facility] [address] [address] CBC Collected: 11/25/2017 Status: F Source: [place] 8:06 AM [facility] REPOSITORY TYPE CODE TESTS RESULT [...] B12, CMP, LIPB, TSH, HBA1C, VITD #### [facility] [address] [place], [place] [address] IRON AND TIBC Collected: 11/25/2017 Status: F Source: [place] 8:06 AM [facility] REPOSITORY TYPE CODE TESTS RESULT OUT OF REFERENCE UNITS RANGE LAB IRN 41-186 ug/dL Iron 65 LAB TIBC 232-386 ug/dL TIBC 347 LAB SAT 15-57 % Transferrin Saturatn 19 Performed By: #### CBC, IRON, B12, CMP, LIPB, TSH, HBA1C, VITD #### [facility] [address] [place], [place] [address] VITAMIN B12 Collected: 11/25/2017 Status: F Source: [place] 8:06 AM [facility] REPOSITORY TYPE CODE TESTS RESULT OUT OF REFERENCE UNITS RANGE LAB B12 232-1245 pg/mL High Vitamin B12 1641 Performed By: #### CBC, IRON, B12, CMP, LIPB, TSH, HBA1C, VITD #### [address] [place], [place] [address] COMP METABOLIC PANEL Collected: 11/25/2017 Status: F Source: [place] 8:06 AM [facility] REPOSITORY TYPE CODE TESTS RESULT OUT OF REFERENCE UNITS RANGE LAB TP 6.3-8.0 g/dL Protein, Total 6.8 LAB ALB 3.9-4.9 g/dL Albumin 4.0 LAB CA 8.5-10.2 mg/dL Calcium, Total 9.3 LAB TBIL 0.2-1.3 mg/dL Bilirubin, Total 0.3 LAB ALKP 32-117 U/L Alkaline Phosphatase 69 LAB AST 13-35 U/L AST 21 LAB GLU 74-99 mg/dL Glucose 82 Result Comment: The [place] Diabetes Association (ADA) provides guidance for cutoff [...] Standards of Medical Care in Diabetes 2016, [place] Diabetes Association. Diabetes Care. 2016.39(Suppl 1). LAB [...] has been calibrated to be traceable to IDHI. An eGFR <60 mL/min/1.73m2 for >3 months is consistent with chronic kidney disease. Refer to KDOQI guidelines for clinical interpretation. In patients with unstable renal function, e.g. those with acute kidney injury, the eGFR may not accurately reflect actual GFR. Performed By: #### CBC, IRON, B12, CMP, LIPB, TSH, HBA1C, VITD #### [facility] [address] [place], [place] [address] LIPID PANEL, BASIC Collected: 11/25/2017 Status: F Source: [place] 8:06 AM [facility] REPOSITORY TYPE CODE TESTS RESULT [...] Desk Reference: National Heart, Lung, and Blood [place]. National Institutes of Health. 2001: NIH Publication No. 01-3305. 2. An International Atherosclerosis Society position paper: global recommendations for the management of dyslipidemia: executive summary, Atherosclerosis. 2014: 232(2):410-413. Performed By: #### CBC, IRON, B12, CMP, LIPB, TSH, HBA1C, VITD #### [facility] [address] [place], [place] [address] TSH Collected: 11/25/2017 Status: F Source: [place] 8:06 AM [facility] REPOSITORY TYPE CODE TESTS RESULT OUT OF RANGE REFERENCE UNITS LAB TSH 0.400-5.500 uU/mL TSH 4.950 Result Comment: If the patient is , TSH reference range varies by gestational period: First Trimester 0.100-2.500 uU/mL Second Trimester 0.200-3.000 uU/mL Third Trimester 0.300-3.000 uU/mL References: 1. Hicks L, Liset M, Randal EK, et al. Management of Thyroid Dysfunction during and : An Endocrine Society Clinical Practice Guideline. J Clin Endocrinol Metab, 2012:97:6153-6351. 2. Vinod BLACKBURN. Overview of thyroid disease in . UpToDate. 2016. Accessed on February 27, 2016. Performed By: #### CBC, IRON, B12, CMP, LIPB, TSH, HBA1C, VITD #### [facility] [address] [place] [address] HEMOGLOBIN A1C Collected: 11/25/2017 Status: F Source: [place] 8:06 AM [facility] REPOSITORY TYPE CODE TESTS RESULT OUT OF REFERENCE UNITS RANGE LAB HGBA1C 4.3-5.6 % Hemoglobin A1c 5.4 LAB HBA0 mg/dL Est. Average Glucose 108 Result Comment: eAG: (Estimated average glucose) is a calculated value from HgbA1c and is unit support representative of the average blood glucose level in the last 2-3 month period. Performed By: #### CBC, IRON, B12, CMP, LIPB, TSH, HBA1C, VITD #### [facility] [address] [place] [address] VITAMIN D 25 HYDROXY Collected: 11/25/2017 Status: F Source: [place] 8:06 AM [facility] REPOSITORY TYPE CODE TESTS RESULT OUT OF REFERENCE UNITS RANGE LAB VITD 31.0-80.0 ng/mL Vitamin D 25 50.3 Hydroxy Result Comment: Classification of 25 [place] Vitamin D status: Insufficiency/Moderate Deficiency: < or = 30 ng/mL Sufficiency/Optimal Levels: 31 to 80 ng/mL Toxicity: > 100 ng/mL Test performed by chemiluminescent immunoassay. Performed By: #### CBC, IRON, B12, CMP, LIPB, TSH, HBA1C, VITD #### [facility] [address], [place] [address] FOLATE, SERUM Collected: 11/25/2017 Status: F Source: [place] 8:06 AM [facility] REPOSITORY TYPE CODE TESTS RESULT OUT [...] III (Folate III) [package insert V 1.0 [place]uran]. [facility], [place], [place]: July 2015. Performed By: #### SERFOL #### [facility] [address] [place], [place] [address] CBC W/DIFF, AUTOMATED Collected: 11/03/2017 Status: F Source: [place] 3:58 PM [facility] REPOSITORY TYPE CODE TESTS RESULT OUT OF [...] Lymph 1.84 Performed By: #### L100.0100 #### [facility] [address] [place], [address] FREE T3 Collected: 11/03/2017 Status: F Source: [place] 3:58 PM [facility] REPOSITORY TYPE CODE TESTS RESULT OUT OF RANGE REFERENCE UNITS LAB [id number] 2.18-3.98 pg/mL Normal FREE T3 2.3 Performed By: #### L501.79024, L501.9310, L501.9520 #### [facility] [address] [place], [address] T4 TOTAL, THYROXIN Collected: 11/03/2017 Status: F Source: [place] 3:58 PM [facility] [place] REPOSITORY TYPE CODE TESTS RESULT OUT OF RANGE REFERENCE UNITS LAB L501.9310 4.8-13.9 ug/dL T4 Normal THYROXIN 9.2 Performed By: #### L501.70888, L501.9310, L501.9520 #### [facility] [address] [place], [address] THYROID STIM HORMONE Collected: 11/03/2017 Status: F Source: [place] (TSH) 3:58 PM [facility] [place] REPOSITORY TYPE CODE TESTS RESULT OUT OF RANGE REFERENCE UNITS LAB L501.9520 0.358-3.74 uIU/mL Normal TSH 2.80 Performed By: #### L501.45892, L501.9310, L501.9520 #### [facility] [address] [place], [address] ALLERGIES ALLERGIES DATE TYPE / CODE NAME / CODE REACTION SEVERITY SOURCE Drug Penicillins/F0010 Rash Unknown Milli 9 Allergy/058105905( 48564(RXNORM) Community SNOMED [facility]) Hospital Repository Drug hydrochlorothiazi Other Unknown Milli 9 Allergy/369307694( de/K596692852(RXN Community SNOMED CT) ORM) Hospital Repository Drug topiramate/Q48587 Chest tightness Unknown Milli 9 Allergy/877586325( 5453(RXNORM) Community SNOM[facility]) Hospital Repository Drug silicone/S9250026 Rash Unknown [place] 9 Allergy/571689680( 00(RXNORM) Community SNOM[facility]) Hospital Repository Drug doxycycline/F0060 Other Unknown Milli 8 Allergy/564353803( 34993(RXNORM) Community SNOMED [facility]) Hospital Repository Drug RGLOFIM-CDO-WNB INTOLERANCE [place] 7 Class/732395444(SN REDUCTASE Clinic Main OMED CT) INHIBITORS [place] Repository DRUG SIMVASTATIN OTHER: SEE Luther Tierney 3 INGREDI/061648083( Clinic Main SNOMED CT) [place] Repository DRUG ATORVASTATIN OTHER: SEE C [place] 3 INGREDI/812076393( CALCIUM Clinic Main SNOMED CT) [place] Repository DRUG PRAVASTATIN OTHER: SEE C Tier[place] 3 INGREDI/443592392( Clinic Main SNOMED CT) [place] Repository DRUG TOPIRAMATE SWELLING [place] 3 INGREDI/277184596( Clinic Main SNOMED CT) [place] Repository DRUG DOXYCYCLINE HCL [place] 8 INGREDI/652358004( Clinic Main SNOMED CT) [place] Repository DRUG SILICONE [place] 6 INGREDI/491075735( Clinic Main SNOMED CT) [place] Repository DRUG VENLAFAXINE HCL INTOLERANCE Tier[place] 5 INGREDI/017480931( Clinic Main SNOMED CT) [place] Repository Miscellaneous OTHER [place] 5 Allergy/475860541( Clinic Main SNOMED CT) [place] Repository Drug PENICILLINS RASH Tier[place] 5 Class/783899697(SN Clinic Main OMED CT) [place] Repository DRUG SERTRALINE HCL INTOLERANCE [place] 5 INGREDI/969559286( [facility] Main [facility]) [place] Repository ENCOUNTERS ENCOUNTERS ADMIT/DISCHARGE ACCOUNT ADMITTING ENCOUNTER LOCATION SOURCE NUMBER CLASS 09/22/2018/09/22/19 [id number] Ambulatory BMSBuilding:B [place] 19 MS.[facility] Repository 09/15/2018/09/15/19 [id number] Ambulatory BMSBuilding:B [place] 19 MS.[facility] Repository 09/08/2018/09/08/20 [id number] Ambulatory BMSBuilding:B [place] 18 MS.[facility] Repository 08/31/2018 [id number] Ambulatory BMSBuilding:B Milli MS.CF.[facility] Repository 08/31/2018/08/31/20 [id number] [address] ing:SDCRoom: Repository AC04 08/25/2018/08/25/20 [id number] Ambulatory BMSBuilding:B [place] 18 MS.[facility] Repository 08/25/2018 [id number] [facility] ing:OPBI Repository 08/24/2018/08/24/20 [id number] Ambulatory [address] Repository 08/24/2018/09/06/20 [id number] Ambulatory [address] Repository 08/24/2018 [id number] [facility] [place] g:H.PMJ Repository 08/18/2018/08/18/20 [id number] Ambulatory BMSBuilding:B [place] 18 MS.[facility] Repository 08/11/2018 [id number] [facility] ing:LABSPEC Repository 08/11/2018/08/11/20 [id number] Ambulatory BMSBuilding:B [place] 18 MS.[facility] Repository 07/27/2018 [id number] [facility] ing:LABSPEC Repository 07/27/2018/07/27/20 [id number] Ambulatory BMSBuilding:B [place] 18 MS.[facility] Repository 07/24/2018 [id number] [facility] [place] g:H.PMJ Repository 07/20/2018 [id number] [facility] ing:LABSPEC Repository 07/20/2018/07/20/20 [id number] Ambulatory BMSBuilding:B [place] 18 MS.[facility] Repository 07/18/2018/07/18/20 [id number] Ambulatory BMSBuilding:B [place] 18 MS.[facility] Repository 07/10/2018/07/10/20 [id number] Ambulatory BMSBuilding:B [place] 18 MS.[facility] Repository 06/29/2018 [id number] Inpatient [facility] Medical [facility]counter [facility] [place] g:H.PMJ Repository 06/27/2018/06/27/20 [id number] Ambulatory BMSBuilding:B [place] 18 MS.[facility] Repository 06/22/2018 [id number] Inpatient [facility] Medical Encounter [facility] [place] g:H.PMJ Repository 06/19/2018/06/19/20 [id number] Ambulatory BMSBuilding:B [place] 18 MS.[facility] Repository 06/15/2018 [id number] Inpatient [facility] Medical Encounter [facility] [place] g:H.PMJ Repository 06/09/2018 [id number] Ambulatory [facility] [place] g:H.PMJ Repository 06/01/2018 [id number] [facility] Repository 06/01/2018/06/01/20 [id number] Ambulatory BMSBuilding:B [place] 18 MS.[facility] Repository 05/16/2018/05/16/20 [id number] Ambulatory BMSBuilding:B [place] 18 MS.[facility] Repository 05/08/2018/05/08/20 [id number] Ambulatory BMSBuilding:B [place] 18 MS.[facility] Repository 05/03/2018 [id number] [facility] ing:LAB Repository 04/17/2018/04/18/20 [id number] Ambulatory [address] [place] Repository 04/12/2018 [id number] [place], Ambulatory [address] [facility] Repository 04/06/2018/04/06/20 [id number] Ambulatory [address] Repository 04/06/2018/04/10/20 [id number] Ambulatory [address] Repository 03/24/2018 [id number] Ambulatory [facility] ing:LABSPEC Repository 02/10/2018/02/11/20 [id number] Ambulatory [address] Repository 02/10/2018/02/14/20 [id number] Ambulatory [address] Repository 01/31/2018 [id number] Ambulatory [facility] g:H.PMJ Repository 01/20/2018 [id number] Ambulatory [facility] g:H.PMJ Repository 01/19/2018/01/21/20 [id number] Ambulatory [address] Repository 12/22/2017/12/23/19 [id number] Ambulatory [address] Repository 12/13/2017 [id number] Ambulatory [facility] Repository 11/29/2017/12/20/19 [id number] Ambulatory [address] Repository 11/25/2017/11/26/19 [id number] Ambulatory [address] Repository 11/03/2017 [id number] [facility] ing:MFPLAB Repository PAYERS PAYERS ENCOUNTER GUARANTOR PAYER SUBSCRIBER SOURCE 09/22/2018 TASHA L Primary TASHA L JIM DE Insurance:[facility] SHUCKDOB: Community [address] *[place] [facility] [id number] Number: Repository [phone]: [phone] [id number] [phone] () Date:9567-34-00MDFJ [address]S [address] [place] [address]QL: 09/22/2018 Secondary NOT GIVENUNK Milli Insurance:SELF PAY [facility] Number: Effective Repository Date:2018-09-15 09/15/2018 TASHA L Primary TASHA L JIM Milli JIM Insurance:[employer] [facility] SHUCKDOB: Community [id number] [place] *[place] [facility] [id number] Number: Repository [id number]: [phone] [id number] [phone] (HP) Date:1335-29-43ECGF CLAIMS [address], [place] [address]RL: 09/15/2018 Secondary NOT GIVENUNK Milli Insurance:SELF PAY [facility] Number: Effective Repository Date:2018-09-14 09/08/2018 TASHA L Primary TASHA L JIM [place] JIM Insurance:[employer] SHUCKDOB: Community [id number] [place] *[place] [facility] [id number] Number: Repository [phone]: [phone] [id number] [phone] (HP) Date:7361-91-38ARBQ CLAIMS [address]PT[address] [place] [address]IV: 09/08/2018 Secondary NOT GIVENUNK Milli Insurance:SELF PAY [facility] Number: Effective Repository Date:2018-09-06 08/31/2018 TASHA L Primary TASHA L JIM Milli JIM Insurance:[employer] SHUCKDOB: Community [id number] [place] *[place] [facility] 9893-31-[place] Number: Repository [id number]: 330 [id number] [phone] (HP) Date:5276-05-45BGCK CLAIMS [address], [place] [address]BX: 08/31/2018 Secondary NOT GIVENUNK Milli Insurance:SELF PAY [facility] Number: Effective Repository Date:2018-08-31 08/31/2018 TASHA L Primary TASHA L JIM Milli JIM Insurance:[employer] SHUCKDOB: Community [id number] [place] *[place] [facility] [id number] Number: Repository [phone]: 330 [id number] [phone] (HP) Date:2087-98-42ZEDV CLAIMS DEPTPO [address] [place] [address]RZ: 08/31/2018 Secondary NOT GIVENUNK [place] Insurance:SELF PAY [facility] Number: Effective Repository Date:2018-08-25 08/25/2018 TASHA L Primary TASHA L JIM [place] JIM Insurance:[employer] SHUCKDOB: Community [id number] [place] *[place] [facility] 9611-04-[place]TEF[place] Number: Repository [id number]: 330 [id number] [phone] () Date:9318-40-60LUQI CLAIMS DEPTPO [address] [place] [address]MX: 08/25/2018 Secondary NOT GIVENUNK [place] Insurance:SELF PAY [facility] Number: Effective Repository Date:2018-08-25 08/25/2018 TASHA L Primary TASHA L JIM Milli JIM Insurance:[employer] SHUCKDOB: Community [id number] [place] *[place] [facility] 5560-55-50UVD[place] Number: Repository [id number]: 330 [id number] [phone] (HP) Date:4680-53-99NLHF CLAIMS DEPTPO [address] [place] [address]EA: 08/25/2018 Secondary NOT GIVENUNK [place] Insurance:SELF PAY [facility] Number: Effective Repository Date:2018-07-11 08/24/2018 TASHA Primary Insurance:[facility] TASHA JIMUNK [address] Number: [place]ository [place] [address]Fxe: [id number] Date:5755-96-91EN BOX (HP) [place]60[place]CLAVKBQ[place], [place] [address]WE: [phone] 08/18/2018 TASHA L Primary TASHA L Milli [id number] Insurance:[employer] CRSC ANDERSONDOB: [facility], *IN [facility] 4619-00-22EKZNor-[facility] [address]Zrk: Number: Repository [id number] (HP) Date:6397-99-86YJWO CLAIMS [address], [place] [address]KU: 08/18/2018 Secondary NOT GIVENUNK Milli Insurance:SELF PAY [facility] Number: Effective Repository Date:2018-08-17 08/11/2018 TASHA L Primary TASHA L [place] [id number] Insurance:[employer] ANDERSONDOB: [facility], *[place] [facility] [id number] [place] [id number]: Number: Repository [id number] (HP) Date:6714-92-81NWVF CLAIMS [address], [place] [address]BY: 08/11/2018 Secondary NOT GIVENUNK [place] Insurance:SELF PAY [facility] Number: Effective Repository Date:2018-08-11 08/11/2018 TASHA L Primary TASHA L Milli [id number] Insurance:[employer] ANDERSONDOB: [facility], *[place] [facility] 2638-75-45TNQNor-[facility] [address]Dvi: Number: Repository [id number] (HP) Date:9898-73-63BAHD CLAIMS [address], [place] [address]TF: 08/11/2018 Secondary NOT GIVENUNK Milli Insurance:SELF PAY [facility] Number: Effective Repository Date:2018-08-02 07/27/2018 TASHA L Primary TASHA L Milli [id number] Insurance:[employer] ANDERSONDOB: [facility], *[place] [facility] [id number]-[facility] [address]Uas: Number: Repository [id number] (HP) Date:7974-50-43CSYX CLAIMS [address], [place] [address]IT: 07/27/2018 Secondary NOT GIVENUNK Milli Insurance:SELF PAY [facility] Number: Effective Repository Date:2018-07-27 07/27/2018 TASHA L Primary TASHA L Milli [id number] Insurance:[employer] ANDERSONDOB: [facility], *[place] [facility] [id number]-Lea [facility] Hospital [address]Lul: Number: Repository [id number] (HP) Date:2013-54-53VSCH CLAIMS DEPTPO [address] [place] [address]JB: 07/27/2018 Secondary NOT GIVENUNK [place] Insurance:SELF PAY [facility] Number: Effective Repository Date:2018-07-27 07/24/2018 TASHA Primary Insurance:[facility] TASHA ANDERSONUNK [facility]122 [facility] Number: Repository [place] [id number]: [id number] Date:[address] () [place], [place] [address]NP: [phone] 07/20/2018 TASHA L Primary TASHA L [place] [id number] Insurance:[employer] ANDERSONDOB: [facility], *[place] [facility] 6087-80-08GQKNor-Lea [facility] Hospital [address]Xfy: Number: Repository [id number] (HP) Date:2121-68-05XVLL CLAIMS DEPTPO [address] [place] [address]NH: 07/20/2018 Secondary NOT GIVENUNK Milli Insurance:SELF PAY [facility] Number: Effective Repository Date:2018-07-20 07/20/2018 TASHA L Primary TASHA L Milli [id number] Insurance:[employer] ANDERSONDOB: [facility], *[place] [facility] 6727-11-23OUUNor-Lea [facility] [address]Ztv: Number: Repository [id number] (HP) Date:2018-68-11GQUR CLAIMS [address], [place] [address]LI: 07/20/2018 Secondary NOT GIVENUNK Milli Insurance:SELF PAY [facility] Number: Effective Repository Date:2018-07-18 07/18/2018 TASHA L Primary TASHA L [place] [id number] Insurance:[employer] ANDERSONDOB: [facility], *[place] [facility] [id number]-Lea [facility] Hospital [address]Xan: Number: Repository [id number] (HP) Date:7814-08-61AJLP CLAIMS [address], [place] [address]SS: 07/18/2018 Secondary NOT GIVENUNK Milli Insurance:SELF PAY [facility] Number: Effective Repository Date:2018-07-18 07/10/2018 TASHA L Primary TASHA L Milli [id number] Insurance:MYC[employer] ANDERSONDOB: [facility], *IN [facility] [id number]-Lea General Hospital [address]Vet: Number: Repository [id number] (HP) Date:5620-91-90XEAV CLAIMS [address], [place] [address]SC: 07/10/2018 Secondary NOT GIVENUNK [place] Insurance:SELF PAY [facility] Number: Effective Repository Date:2018-07-07 06/29/2018 TASHA Primary Insurance:[facility] TASHATyler [facility]122 [facility] Repository [place] [address]Jzu: Number: [id number] (HP) Date:1682-43-52YC [address], [place] [address]YT: 06/29/2018 Secondary [facility]HA [facility] Insurance:[facility] Repository Number: [id number] Date:[address] [place] [address]GN: 06/27/2018 TASHA L Primary TASHA L [place] [id number] Insurance:MYCARE CRSC ANDERSONDOB: [facility], *IN [facility] [id number]-[facility]a [facility] Hospital [address]Ubn: Number: Repository [id number] (HP) Date:6906-22-29DCTM CLAIMS DEPTPO [address] [place] [address]EB: 06/27/2018 Secondary NOT GIVENUNK [place] Insurance:SELF PAY [facility] Number: Effective Repository Date:2018-06-27 06/22/2018 TASHA Primary Insurance:[facility] TASHA WINSLOW [facility] Medical [id number] [facility] Repository [place] [id number]: Number: [id number] (HP) Date:7675-78-53LW [address], [place] [address]ZU: 06/22/2018 Secondary TASHA ANDERSONJOHAN [facility] Medical Insurance:[facility] Repository Number: [id number] Date:[address] [place] [address]OD: 06/19/2018 TASHA L Primary TASHA L [place] [id number] Insurance:MYCARE CRSC ANDERSONDOB: [facility], *IN [facility] [id number] Hospital [place] [address]Fsg: Number: Repository [id number] (HP) Date:5114-72-90QNUD CLAIMS DEPTPO [address] [place] [address]FQ: 06/19/2018 Secondary NOT GIVENUNK [place] Insurance:SELF PAY [facility] Number: Effective Repository Date:2018-06-19 06/15/2018 TASHA Primary Insurance:[facility] TASHA WINSLOW [facility] [id number] [facility] Number: Repository [place] [id number]: [id number] Date:[address] (HP) [place]12032[place]KIQPAG[place], [place] [address]QW: [phone] 06/09/2018 TASHA Primary TASHA ANDERSONUNK [facility] [id number] Insurance:[facility] Repository [place] [address]Bzg: Number: [id number] (HP) Date:[address] [place] [address]DB: 06/01/2018 TASHA L Primary TASHA L [place] [id number] Insurance:MYCARE [employer]SC ANDERSONDOB: [facility], *[place] [facility] [id number]-Lea General Hospital [address]Wnz: Number: Repository [id number] (HP) Date:8473-63-79AIHH CLAIMS DEPTPO [address] [place] [address]VT: 06/01/2018 Secondary NOT GIVENUNK [place] Insurance:SELF PAY [facility] Number: Effective Repository Date:2018-06-01 06/01/2018 TASHA L Primary TASHA L Milli [id number] Insurance:[employer] ANDERSONDOB: [facility], *IN [facility] [id number]-[facility]a [facility] Hospital [address]Phh: Number: Repository [id number] (HP) Date:1921-77-39IJXK CLAIMS DEPT[address] [place] [address]SZ: 06/01/2018 Secondary NOT GIVENUNK Milli Insurance:SELF PAY [facility] Number: Effective Repository Date:2018-06-01 05/16/2018 TASHA L Primary TASHA L [place] [id number] Insurance:MYCARE [employer]SC ANDERSONDOB: [facility], *IN [facility] 3790-95-12XTONor-Lea General Hospital [address]Dzv: Number: Repository [id number] (HP) Date:6250-99-63RMJG CLAIMS DEPTPO [address] [place] [address]KC: 05/16/2018 Secondary NOT GIVENUNK [place] Insurance:SELF PAY [facility] Number: Effective Repository Date:2018-05-08 05/08/2018 TASHA L Primary TASHA L [place] [id number] Insurance:[facility] ANDERSONDOB: [facility], *IN [facility] 7992-26-80BGVNor-Lea [facility] [address]Sns: Number: Repository [id number] (HP) Date:5029-87-73YVOA CLAIMS DE[address] [place] [address]PA: 05/08/2018 Secondary NOT GIVENUNK Milli Insurance:SELF PAY [facility] Number: Effective Repository Date:2018-05-08 05/03/2018 Tasha L Primary Tasha L [place] [id number] Insurance:[facility] AndersonDOB: [facility], *IN [facility] [id number]-Lea [facility] Hospital [address]Rqx: Number: Repository [id number] (HP) Date:0522-23-49VUVK CLAIMS [address] [place] [address]FO: 05/03/2018 Secondary NOT GIVENUNK [place] Insurance:SELF PAY [facility] Number: Effective Repository Date:2018-05-03 04/12/2018 TASHA Primary TASHA [employer] ANDERSONDOB: Insurance:[employer] ANDERSONDOB: [facility] [id number] [facility], Number: [place], [place] [address]Lnj: [id number] [place] [address]Baw: Date:Plan Name:[facility] (HP) (HP) 04/12/2018 Secondary [facility] University Insurance:[employer] ANDERSONDOB: [facility] [id number] Repository [facility], Number: [place] [address]Jld: [id number] Date:Plan Name:Health () 03/24/2018 Tasha L Primary Tasha L Milli [id number] Insurance:[facility] AndersonDOB: [facility], [place] [facility] [id number] Hospital [place] [address]Wjn: Number: Repository [id number] (HP) Date:9701-73-20MAKX CLAIMS [address], [place] [address]KS: 03/24/2018 Secondary NOT GIVENUNK Milli Insurance:SELF PAY [facility] Number: Effective Repository Date:2018-03-24 01/31/2018 TASHA Primary [place] [id number] Insurance:[facility] Repository [place] [id number]: Number: [id number] (HP) Date:[address], [place] [address]IX: 01/20/2018 TASHA Primary Insurance:[address] Number: Repository [place] [id number]: [id number] Date:[address] (HP) [address]UKHGHQNB, [place] [address]KB: [phone] 12/13/[address] [facility] ANDERSONDOB: Insurance:[facility] HealthcareD[facility]: [facility] [id number] [place] [address], Number: [place], [place] [address]Xjt: [id number] [place] [address]Jnp: Date:Plan Name:Health (HP) (HP) 12/13/2017 Secondary TASHA [employer] Insurance:[employer] ANDERSONDOB: [facility] [id number] Repository [facility], Number: [place] [address]Pbj: [id number] Date:Plan Name:Health () 11/03/2017 Tasha L Primary Tasha L Milli [place] Insurance:[facility] AndersonDOB: [facility], *[place] [facility] 9627-74-88IAJNor-Lea [facility] Hospital [address]Aex: Number: Repository [id number] () Date:9411-66-11TNIR CLAIMS DEPTPO [address] [place] [address]BI: 11/03/2017 Secondary NOT GIVENUNK Milli Insurance:SELF PAY [facility] Number: Effective Repository Date:2017-11-03
== END ==
PROVIDERS: Family Provider Family Medicine; PCP Family Medicine; Referring Provider Obstetrics & Gynecology; Visit Provider Obstetrics & Gynecology
DX: Z12.31 Encounter for screening mammogram for malignant neoplasm of breast (principal)
CPT/HCPCS: 77063; 77067

== ENCOUNTER 2018-08-31 11:09 | Day surgery (SDC) | payer MEDICARE, SELFPAY ==
[2018-08-31] VITALS (7 sets, daily range): BP systolic 101–149; BP diastolic 70–95; PULSE 60–71; RESP 16–18; TEMP 36.1–36.9; O2SAT 100; BMI 30.3
[2018-08-31] MEDS: levoFLOXacin IV 500 MG/100 ML BAG 100 MG IV (12:15)
[2018-08-31] MEDS: Bupivacaine Mpf 0.5% 30 ML VIAL (13:24)
--- NOTE | 2018-08-31 14:28 | OP.PCM_ITS ---
Report of Operation Date of Procedure: 08/31/18 Pre-Operative Diagnosis: Right buttock abscess Post-Operative Diagnosis: Same Surgery/Procedure Performed:: Incision and debridement of right buttock abscess floatlight loading supervisor: Babs Tucker Type of Anesthesia:: MAC/Supplemental/Local Anesthesiologist: Bret Paul Special Medications: Levofloxacin 500 mg IV x1 Specimen's removed: Culture sent as well as tissues for culture Estimated Blood Loss (mL): <10 cc Fluids Replaced: 500 cc Description of Procedure: Patient was brought to the operating room and placed in right lateral decubitus position on the operating table. Correct pre-procedure, site, positioning, special, was verified prior to beginning procedure. MAC anesthesia was induced. The right buttock was prepped and draped in usual sterile fashion with Betadine due to the open wound. Local 1% lidocaine and 0.5 Marcaine 1:1 mixture was used for a total of 9 cc. An elliptical incision was made around the current abscess opening which was about 0.5 cm initially this was enlarged to 3 cm x 1.5 cm. The abscess was noted to track to the just anterior to the anus, the small opening were opened to allow for better drainage. Cultures were taken. The davidson of the previous abscess was removed with electrocautery and a curette was also used. Once the base of the cavity was clearly seen and no more openings or sinuses found. The wound was irrigated. The wound was 4-1/2 cm in depth tapering out to the 3 cm x 1.5 cm in width and height. Hemostasis was assured. Wound was packed with wet-to-dry dressing. And dressed with 4 x 4 gauze and paper tape. Patient tolerated procedure well was taken to the postanesthesia care unit in stable condition. - Complications none
--- NOTE | 2018-08-31 14:30 | DCINST_ITS ---
Discharge Diet: No Restrictions Discharge Activity: May not drive while taking narcotic pain medications. Call your doctor if your incision/area has: Continuous Slow Oozing, Sudden Increased Bleeding, Increased Pain/ Swelling, Increased Redness, Foul Smelling Discharge, Swelling at the incision site Remove Dressing in (days):: 1 Additional Dressing/Incision Instructions:: Use wet to dry dressings twice daily for the first few days then okay to go wet-to-dry daily if there is not much drainage. Allergies/Adverse Reactions: Allergies Penicillins [PCN] Allergy (Verified 08/29/18 15:17) Rash RAPID HEARTRATE silicone [Silicone] Allergy (Verified 08/29/18 15:17) Rash hydrochlorothiazide Adverse Reaction (Verified 08/29/18 15:17) Other topiramate [From Topamax] Adverse Reaction (Verified 08/29/18 15:17) Chest tightness Medications to take at Discharge Duloxetine Hcl [Cymbalta] 60 mg PO BID 06/19/13 Ergocalciferol [Vitamin D] 50,000 unit PO Q7D 06/19/13 Levothyroxine [Synthroid] 50 mcg PO DAILY 06/19/13 Omeprazole [Prilosec] 20 mg PO BID 06/19/13 Biotin 10 mg PO DAILY 12/22/13 Calcium Citrate/Vitamin D3 [Calcium Citrate-Vit D3 Tablet] 2 ea PO BID 06/23/17 Cyanocobalamin (Vitamin B-12) [Vitamin B-12] 500 mcg PO DAILY 06/23/17 Magnesium 500 mg PO DAILY 06/23/17 Tizanidine HCl [Zanaflex] 4 mg PO BID 06/23/17 hydrOXYzine pamoate capsule [Vistaril pamoate capsule] 25 mg PO TID PRN PRN 06/23/17 Acetaminophen [Tylenol] 1,000 mg PO Q8H PRN PRN tab 07/01/17 zonisamide 100 mg capsule 400 mg PO DAILY cap 05/08/18 doxycycline monohydrate 100 mg capsule 100 mg PO BID #20 cap 08/18/18 Hydrocodone Bitart/Apap 5-325 [[place] 5MG-325MG] 1 tablet PO Q6H PRN PRN 4 Days #10 tablet 08/31/18 The following prescriptions were given: Hydrocodone Bitart/Apap 5-325 [[place] 5MG-325MG] 1 tablet PO Q6H PRN PRN 4 Days #10 tablet PRN Reason: Pain Primary Care Physician: Ronnell Moreno MD [Primary Care Provider] - Test Results: Test results from this visit will be discussed in further detail at your follow- up appointment, if applicable. Please Follow Up With: Florence Mario MD - after 5pm/weekends call [phone] with any concerns When: Call the office for follow-up in 1 week. Proposed Discharge Date: 08/31/18
== END 2018-08-31 15:51 | disposition home or self-care (01) ==
LOC: SDC 11:09 → AC 11:10
PROVIDERS: Family Provider Family Medicine; PCP Family Medicine; Referring Provider Surgery; Visit Provider Surgery
PROC: (CPT 10061; principal; 2018-08-31 12:50)
DX: L02.31 Cutaneous abscess of buttock (principal); D64.9 Anemia, unspecified; K21.9 Gastro-esophageal reflux disease without esophagitis; Z98.84 Bariatric surgery status
CPT/HCPCS: 10061; 87070; 87075; 87077; 87186; 87205; J7120

== ENCOUNTER → 2018-10-11 11:08 | Outpatient (CLI) | payer MEDICARE, SELFPAY ==
[2018-09-22 13:22] VITALS: BMI 30.3
[2018-10-11 12:11] LABS: Absolute Lymphocyte Count 1.54 X10^3/ul (0.83-4.51); Absolute Neutrophil Count 6.6 X10^3/uL (2.0-7.7); Basophil# 0.02 X10^3/uL; Basophil% 0.2 % (0-1); Eosinophil# 0.13 X10^3/uL; Eosinophils% 1.5 % (0-5); Hematocrit 43.1 % (37-47); Hemoglobin 14.5 g/dl (12.0-15.0); Lymphocyte # 1.54 X10^3/ul (4.0); Lymphocyte % 17.5 % (19-41); Mean Corp Hgb Conc 33.6 g/gl (32-36); Mean Corpuscular Hgb 32.5 pg (27.0-32.0); Mean Corpuscular Volume 96.6 fL (81-99); Mean Platelet Vol. 9.9 fl (6.2-12.0); Monocyte# 0.48 X10^3/uL; Monocyte% 5.5 % (0-10); Neutrophil % 75.1 % (47-70); Platelet Count 242 K/mm3 (150-450); RBC Distribution Width CV 12.6 % (11.6-14.6); RBC Distribution Width SD 43.4 fl (35.1-43.9); Red Blood Count 4.46 M/mm3 (4.2-5.4); White Blood Count 8.8 K/mm3 (4.4-11.0)
[2018-10-11 12:16] LABS: POSITIVE COUNT NO; POSITIVE DIFFERENTIAL NO; POSITIVE MORPHOLOGY NO
[2018-10-11 13:00] LABS: Anion Gap 9 (5-15); BUN 9 mg/dL (7-18); BUN/Creat Ratio 13.3 RATIO (10-20); Calcium,Total 8.8 mg/dL (8.5-10.1); Chloride 105 mmol/L (98-107); Creatinine, Serum 0.68 mg/dL (0.55-1.02); EST Glomerular Filtration Rate 102 mL/min (>60); Est Glom Filt Rate - Afr Amer 123 mL/min (>60); Glucose 78 mg/dL (74-106); Potassium 4.4 mmol/L (3.5-5.1); Sodium Level 141 mmol/L (136-145); Thyroid Stim Hormone (TSH) 2.22 uIU/mL (0.358-3.74)
== END ==
PROVIDERS: Family Provider Family Medicine; PCP Family Medicine; Visit Provider Family Medicine
DX: E03.9 Hypothyroidism, unspecified (principal)
CPT/HCPCS: 36415; 80048; 84443; 85025

== ENCOUNTER 2018-10-25 07:19 | Day surgery (SDC) | payer MEDICARE, SELFPAY ==
[2018-09-22 13:22] VITALS: BMI 30.3
[2018-10-12 13:42] VITALS: BMI 30.3
[2018-10-25] VITALS (8 sets, daily range): BP systolic 100–128; BP diastolic 62–80; PULSE 60–76; RESP 14–16; TEMP 36.4–37.2; O2SAT 97–100; BMI 29.2
[2018-10-25] MEDS: levoFLOXacin IV 500 MG/100 ML BAG 100 MG IV (08:15)
[2018-10-25] MEDS: Bupiv/Epi 0.5% Mpf 30 ML Vial (09:35)
[2018-10-25] MEDS: Lubricating Jelly 60 GM Tube 30 GM TOPICAL (09:40)
[2018-10-25] MEDS: Methylene Blue 1% 100 MG/10 ML VIAL (09:50)
--- NOTE | 2018-10-25 11:32 | PCM.OPRPT ---
Report of Operation Date of Procedure: 10/25/18 Pre-Operative Diagnosis: right buttock abscess Post-Operative Diagnosis: Same Surgery/Procedure Performed:: Incision and debridement of right buttock abscess java web developer: Boubacar Platt Type of Anesthesia:: MAC Special Medications: Levaquin 500 mg IV x1 and Flagyl 500 mg IV x1 Specimen's removed: Right buttock wound culture, tissue for culture Drains: 14 Belarusian Malecot catheter placed in the right buttock Estimated Blood Loss (mL): < 20 cc Description of Procedure: Patient was brought to the operating room placed supine on the operating room table. Correct patient, procedure, site, positioning, special, was verified prior to beginning procedure. MAC anesthesia was induced. Patient was placed in lithotomy. The peritoneum was prepped draped in usual sterile fashion with Betadine. Exam under anesthesia was completed of both the rectum by myself with Hill-Ma retractors and the vaginal by Dr. Platt with a speculum. No obvious tracts or indurated tissue were seen. The previous right buttock abscess skin incision was enlarged using electro cautery the tract I did appear to be deeper to 6 cm from the initial 4.5. This again was opened up using electrocautery. Methylene blue and hydrogen peroxide were both used to see if it would track in either the vaginal area or the rectum. However no blue dye or bubbles were seen either of those 2 areas. The right buttock abscess was irrigated with saline. A 14 Belarusian Malecot was placed and sutured with a 3-0 nylon suture. Hemostasis was achieved with electrocautery. A Betadine soaked gauze is placed in the superficial part of the wound. The wound measures 4 cm x 2.5 cm x 6 cm. The wound was dressed with gauze and ABD pad. Patient tolerated procedure well was taken to the PACU in stable condition. - Complications none
--- NOTE | 2018-10-25 11:35 | OP.PCM_ITS ---
Report of Operation Date of Procedure: 10/25/18 Pre-Operative Diagnosis: right buttock abscess Post-Operative Diagnosis: Same Surgery/Procedure Performed:: Incision and debridement of right buttock abscess learning and development analyst: Boubacar Platt Type of Anesthesia:: MAC Special Medications: Levaquin 500 mg IV x1 and Flagyl 500 mg IV x1 Specimen's removed: Right buttock wound culture, tissue for culture Drains: 14 Indonesian Malecot catheter placed in the right buttock Estimated Blood Loss (mL): < 20 cc Description of Procedure: Patient was brought to the operating room placed supine on the operating room table. Correct patient, procedure, site, positioning, special, was verified prior to beginning procedure. MAC anesthesia was induced. Patient was placed in lithotomy. The peritoneum was prepped draped in usual sterile fashion with Betadine. Exam under anesthesia was completed of both the rectum by myself with Hill- Ma retractors and the vaginal by Dr. Platt with a speculum. No obvious tracts or indurated tissue were seen. The previous right buttock abscess skin incision was enlarged using electro cautery the tract I did appear to be deeper to 6 cm from the initial 4.5. This again was opened up using electrocautery. Methylene blue and hydrogen peroxide were both used to see if it would track in either the vaginal area or the rectum. However no blue dye or bubbles were seen either of those 2 areas. The right buttock abscess was irrigated with saline. A 14 Indonesian Malecot was placed and sutured with a 3-0 nylon suture. Hemostasis was achieved with electrocautery. A Betadine soaked gauze is placed in the superficial part of the wound. The wound measures 4 cm x 2.5 cm x 6 cm. The wound was dressed with gauze and ABD pad. Patient tolerated procedure well was taken to the PACU in stable condition. - Complications none
--- NOTE | 2018-10-25 11:37 | DCINST_ITS ---
Discharge Diet: No Restrictions Discharge Activity: May not drive while taking narcotic pain medications. May shower in (days): 1 Call your doctor if your incision/area has: Continuous Slow Oozing, Sudden Increased Bleeding, Increased Pain/ Swelling, Increased Redness, Foul Smelling Discharge, Swelling at the incision site Call your doctor if you observe: Fever of 101 or Higher Remove Dressing in (days):: 1 Additional Dressing/Incision Instructions:: Rinse wound with saline daily Allergies/Adverse Reactions: Allergies Penicillins [PCN] Allergy (Verified 10/12/18 13:42) Rash RAPID HEARTRATE silicone [Silicone] Allergy (Verified 10/12/18 13:42) Rash hydrochlorothiazide Adverse Reaction (Verified 10/12/18 13:42) Other Ixuzuyv-Uyf-Wcf Reductase Inhibitor Adverse Reaction (Verified 10/18/18 11:06) Other CRAMPING IN LEGS topiramate [From Topamax] Adverse Reaction (Verified 10/12/18 13:42) Chest tightness Medications to take at Discharge Duloxetine Hcl [Cymbalta] 60 mg PO DAILY 06/19/13 Ergocalciferol [Vitamin D] 50,000 unit PO Q7D 06/19/13 Levothyroxine [Synthroid] 50 mcg PO DAILY 06/19/13 Omeprazole [Prilosec] 20 mg PO BID 06/19/13 Biotin 10 mg PO DAILY 12/22/13 Calcium Citrate/Vitamin D3 [Calcium Citrate-Vit D3 Tablet] 2 ea PO BID 06/23/17 Cyanocobalamin (Vitamin B-12) [Vitamin B-12] 500 mcg PO DAILY 06/23/17 Tizanidine HCl [Zanaflex] 4 mg PO DAILY 06/23/17 Acetaminophen [Tylenol] 1,000 mg PO Q8H PRN PRN tab 07/01/17 Oxybutynin [Ditropan] 15 mg PO DAILY 10/18/18 Rizatriptan Benzoate [Maxalt] 5 mg PO .X1 PRN 10/18/18 Levofloxacin [Levaquin] 500 mg PO DAILY #5 tablet 10/25/18 Metronidazole [Flagyl] 500 mg PO Q8H #15 tablet 10/25/18 Oxycodone HCl/Acetaminophen [Percocet 5/325] 1 - 2 tablet PO Q6H PRN PRN 3 Days #20 tablet 10/25/18 The following prescriptions were given: Oxycodone HCl/Acetaminophen [Percocet 5/325] 1 - 2 tablet PO Q6H PRN PRN 3 Days #20 tablet PRN Reason: Pain Levofloxacin [Levaquin] 500 mg PO DAILY #5 tablet Metronidazole [Flagyl] 500 mg PO Q8H #15 tablet Primary Care Physician: Ronnell Moreno MD [Primary Care Provider] - Test Results: Test results from this visit will be discussed in further detail at your follow- up appointment, if applicable. Please Follow Up With: Florence Mario MD When: call office for f/u in 1 week Proposed Discharge Date: 10/25/18
--- NOTE | 2018-10-26 12:16 | PCM.OPRPT ---
Report of Operation Date of Procedure: 10/25/18 Pre-Operative Diagnosis: right buttock abscess Post-Operative Diagnosis: Same Surgery/Procedure Performed:: Incision and debridement of right buttock abscess Description of Surgical Findings:: Right buttock abscess. Exam with normal appearing vaginal mucosa with no induration, swelling, or signs of infection. owner e commerce company: Boubacar Platt Type of Anesthesia:: MAC Anesthesiologist: Bret Paul Special Medications: Levaquin 500 mg IV x1 and Flagyl 500 mg IV x1 Specimen's removed: Right buttock wound culture, tissue for culture Drains: 14 Maltese Malecot catheter placed in the right buttock Estimated Blood Loss (mL): < 20 cc Description of Procedure: Patient was taken tot he OR where MAC anesthesia was introduced without complication. She was given Levoquin and Flagyl IV prior to the procedure. She was prepped and draped in the dorsal lithotomy position. The right buttock abscess was then opened and debrided . Examination under anesthesia failed to confirm a fistula tract between the abscess and the vagina or abscess and the rectum. The right buttock defect was cleansed with peroxide and hemostasis was assured. Please refer to Dr. Mario's note for further information. She was reversed from anesthesia and taken to the recovery room in stable condition. Grafts/Implants Used: none - Complications none - Admit VTE Documentation VTE Present on Admission: No VTE Mechan Device Prophylaxis: SCD's VTE Pharm Prophylaxis ordered?: No
--- NOTE | 2018-10-26 12:21 | OP.PCM_ITS ---
Report of Operation Date of Procedure: 10/25/18 Pre-Operative Diagnosis: right buttock abscess Post-Operative Diagnosis: Same Surgery/Procedure Performed:: Incision and debridement of right buttock abscess Description of Surgical Findings:: Right buttock abscess. Exam with normal appearing vaginal mucosa with no induration, swelling, or signs of infection. solar sales associate: Boubacar Platt Type of Anesthesia:: MAC Anesthesiologist: Bret Paul Special Medications: Levaquin 500 mg IV x1 and Flagyl 500 mg IV x1 Specimen's removed: Right buttock wound culture, tissue for culture Drains: 14 Korean Malecot catheter placed in the right buttock Estimated Blood Loss (mL): < 20 cc Description of Procedure: Patient was taken tot he OR where MAC anesthesia was introduced without complication. She was given Levoquin and Flagyl IV prior to the procedure. She was prepped and draped in the dorsal lithotomy position. The right buttock abscess was then opened and debrided . Examination under anesthesia failed to confirm a fistula tract between the abscess and the vagina or abscess and the rectum. The right buttock defect was cleansed with peroxide and hemostasis was assured. Please refer to Dr. Mario's note for further information. She was reversed from anesthesia and taken to the recovery room in stable condition. Grafts/Implants Used: none - Complications none - Admit VTE Documentation VTE Present on Admission: No VTE Mechan Device Prophylaxis: SCD's VTE Pharm Prophylaxis ordered?: No
== END 2018-10-25 12:13 | disposition home or self-care (01) ==
LOC: SDC 07:20 → AC 07:21
PROVIDERS: Obstetrics & Gynecology; Family Provider Family Medicine; PCP Family Medicine; Referring Provider Surgery; Visit Provider Surgery
PROC: (CPT 10061; principal; 2018-10-25 08:50)
DX: L02.31 Cutaneous abscess of buttock (principal); Z98.84 Bariatric surgery status; F32.9 Major depressive disorder, single episode, unspecified; F41.9 Anxiety disorder, unspecified; Z86.718 Personal history of other venous thrombosis and embolism; K21.9 Gastro-esophageal reflux disease without esophagitis; Z79.899 Other long term (current) drug therapy; G43.909 Migraine, unspecified, not intractable, without status migrainosus; M19.90 Unspecified osteoarthritis, unspecified site
CPT/HCPCS: 00400; 10061; 87070; 87075; 87077; 87205; J7120; J2405

== ENCOUNTER → 2018-11-03 16:44 | Outpatient (CLI) | payer MEDICARE, SELFPAY ==
[2018-10-25 07:44] VITALS: BMI 29.2
== END ==
PROVIDERS: Family Provider Family Medicine; PCP Family Medicine; Referring Provider Surgery; Visit Provider Surgery
DX: L02.31 Cutaneous abscess of buttock (principal)
CPT/HCPCS: 87070; 87075; 87077; 87205

== ENCOUNTER → 2018-11-10 12:30 | Outpatient (CLI) | payer MEDICARE, SELFPAY ==
[2018-10-25 07:44] VITALS: BMI 29.2
== END ==
PROVIDERS: Family Provider Family Medicine; PCP Family Medicine; Referring Provider Surgery; Visit Provider Surgery
DX: L02.31 Cutaneous abscess of buttock (principal)
CPT/HCPCS: 87070; 87075; 87205

== ENCOUNTER → 2018-11-22 11:04 | Outpatient (CLI) | payer MEDICARE, SELFPAY ==
[2018-11-21 15:26] VITALS: BMI 29.2
[2018-11-22 12:36] LABS: Absolute Lymphocyte Count 1.49 X10^3/ul (0.83-4.51); Basophil# 0.04 X10^3/uL; Basophil% 0.8 % (0-1); Eosinophil# 0.16 X10^3/uL; Eosinophils% 3.2 % (0-5); Hematocrit 42.3 % (37-47); Hemoglobin 13.3 g/dl (12.0-15.0); Lymphocyte # 1.49 X10^3/ul (4.0); Lymphocyte % 29.9 % (19-41); Mean Corp Hgb Conc 31.4 g/gl (32-36); Mean Corpuscular Volume 101.7 fL (81-99); Mean Platelet Vol. 10.5 fl (6.2-12.0); Monocyte# 0.29 X10^3/uL; Monocyte% 5.8 % (0-10); Neutrophil % 60.3 % (47-70); Platelet Count 208 K/mm3 (150-450); RBC Distribution Width CV 12.9 % (11.6-14.6); RBC Distribution Width SD 47.3 fl (35.1-43.9); Red Blood Count 4.16 M/mm3 (4.2-5.4)
[2018-11-22 12:43] LABS: POSITIVE COUNT NO; POSITIVE DIFFERENTIAL NO; POSITIVE MORPHOLOGY NO
[2018-11-22 13:26] LABS: Anion Gap 5 (5-15); BUN 7 mg/dL (7-18); BUN/Creat Ratio 12.9 RATIO (10-20); Calcium,Total 8.7 mg/dL (8.5-10.1); Chloride 104 mmol/L (98-107); Creatinine, Serum 0.54 mg/dL (0.55-1.02); EST Glomerular Filtration Rate 131 mL/min (>60); Est Glom Filt Rate - Afr Amer 158 mL/min (>60); Glucose 82 mg/dL (74-106); Potassium 4.2 mmol/L (3.5-5.1); Sodium Level 138 mmol/L (136-145); Thyroid Stim Hormone (TSH) 1.43 uIU/mL (0.358-3.74)
== END ==
PROVIDERS: Family Provider Family Medicine; PCP Family Medicine; Referring Provider Family Medicine; Visit Provider Family Medicine
DX: E03.9 Hypothyroidism, unspecified (principal); T14.8XXA Other injury of unspecified body region, initial encounter
CPT/HCPCS: 36415; 80048; 84443; 85025

== ENCOUNTER 2018-12-05 14:45 | Outpatient (RCR) | payer MEDICARE, SELFPAY ==
[2018-10-25 07:44] VITALS: BMI 29.2
[2018-11-21 15:26] VITALS: BP 132/94; PULSE 67; RESP 18; TEMP 36.1; BMI 29.2
--- NOTE | 2018-11-21 17:44 | PCM.WC.HP ---
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 History of Wound: Issue with this ulcer started 03/24/18 when it started draining. She initially went to her PCP, Dr. Valiente who cultured it and placed her on antibiotics. She was sent to Dr. Mario 05/08/18 who took over care. She had had several I&D's in the office, wound cultures and antibiotics. She went to the OR 08/31/18 for I&D. Wound Cultures were Streptococcocus group C,Staphylococcus pseudintermediu and Anaerobic cocci and was treated with Levaquin and Flagyl. On 10/25/18 a wound culture was positive for Streptococcus group A and group C and Provetella Melaningogenica and placed on Cefdinir and Flagyl. On 11/03/18 OR for an I&D and Dr. Platt was present to rule out a fistula from the wound to either the vagina or rectum, wound cultures showed Streptococcus group C and Anaerobic cocci, placed on Cefdinir and and flagyl. She has been using Dakin's solution to pack the wound but is having itching due to having a bleach sensitivity. She does have a history of gastric bypass. She states she is eating pleanty of protein. Denies any fevers or poor appetite. 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) Hx of gastric bypass (Chronic) 2012 Surgical History: hysterectomy, - - Left carpal tunnel surgery Allergies/Adverse Reactions: Allergies Penicillins [PCN] Allergy (Verified 11/16/18 13:01) Rash RAPID HEARTRATE silicone [Silicone] Allergy (Verified 11/16/18 13:01) Rash hydrochlorothiazide Adverse Reaction (Verified 11/16/18 13:01) Other Laaxfij-Gll-Xnd Reductase Inhibitor Adverse Reaction (Verified 11/16/18 13:01) Other CRAMPING IN LEGS topiramate [From Topamax] Adverse Reaction (Verified 11/16/18 13:01) Chest tightness Home Medications: Ambulatory Orders Medication Instructions Recorded Duloxetine Hcl [Cymbalta] 60 mg PO DAILY 06/19/13 Ergocalciferol [Vitamin D] 50,000 unit PO Q7D 06/19/13 Levothyroxine [Synthroid] 50 mcg PO DAILY 06/19/13 Omeprazole [Prilosec] 20 mg PO BID 06/19/13 Biotin 10 mg PO DAILY 12/22/13 Calcium Citrate/Vitamin D3 2 ea PO BID 06/23/17 [Calcium Citrate-Vit D3 Tablet] Cyanocobalamin (Vitamin B-12) 500 mcg PO DAILY 06/23/17 [Vitamin B-12] Tizanidine HCl [Zanaflex] 4 mg PO DAILY 06/23/17 Acetaminophen [Tylenol] 1,000 mg PO Q8H PRN PRN tab 07/01/17 Oxybutynin [Ditropan] 15 mg PO DAILY 10/18/18 Rizatriptan Benzoate [Maxalt] 5 mg PO .X1 PRN 10/18/18 Levofloxacin [Levaquin] 500 mg PO DAILY #5 tab 10/25/18 metronidazole 500 mg tablet 500 mg PO TID #15 tab 11/08/18 cefdinir 300 mg capsule 300 mg PO Q12H #14 cap 11/16/18 metronidazole 500 mg tablet 500 mg PO Q8H #21 tab 11/16/18 sodium hypochlorite 0.25 % solution 1 irrig TOPICAL BID #473 ml 11/16/18 Smoking Status: Never smoker Review of Systems Constitutional: Denies: Chills, Fever, Weight Change Eyes: Denies: Pain, Vision Change HEENT: Denies: Difficulty Hearing, Difficulty Swallowing, Sinus Congestion Cardiovascular: Denies: Chest Pain, Palpitations Respiratory: Denies: Cough, Shortness of Breath Gastrointestinal: Denies: Diarrhea, Nausea, Vomiting Genitourinary: Denies: Dysuria, Hematuria Musculoskeletal: Denies: Joint Pain Skin: Reports: Wounds - Right buttock ulcer that started 03/29 Neurological: Denies: Balance problems, Blurred vision, Change in Speech, Slurred speech Psychiatric: Denies: Anxiety Endocrine: Reports: Heat/ Cold Intolerance - Physical Exam Vital Signs Temp Pulse Resp BP 97 F L 67 18 132/94 H 11/21/18 15:26 11/21/18 15:26 11/21/18 15:26 11/21/18 15:26 General: Alert, Oriented x3, Cooperative HEENT: Atraumatic, PERRLA Oral: Moist Mucosa Lungs: Clear to auscultation, Normal air movement Cardiovascular: Regular rate, Regular Rhythm Abdomen: Bowel Sounds Present, Soft Extremities: No edema, Capillary Refill Less than 3 Seconds, Peripheral Pulses Normal Skin: Ulcer/ Wound - Right buttock opened ulcer with tunneling at 9 o'clock Wound Measurements and Assessment WC - Nurse 1 - General Ulcer Measurement Start: 11/21/18 15:26 Freq: Status: Active Protocol: Activity Type Activity Date Activity User E-Sign Co-Sign Detail Recorded Client Recorded Date Recorded By Document 11/21/18 15:26 RB [id number] 11/21/18 15:30 RB 11/21/18 15:26 Wound Center Nurse 1 [Ulcer Assessment] 1. R buttock -Combined with other wound No -Current Size (cm) - Length 0.3 -Current Size (cm) - Width 1.3 -Current Size (cm) - Depth 1.5 -Total Square Cm 0.39 -Photo Taken Yes -Tunneling No -Undermining/Tunneling No -Circular Undermining No -Exudate Amt Small -Exudate Type Serosanguineous -Wound Margin Distinct, Outline Attached -Granulation Amt Medium (34-66%) -Granulation Quality [place] -Slough/Fibrin Yes -Necrosis Amt Small (1-33%) -Necrotic Tissue Type Adherent Slough -Structure Exposed N/A -Texture ([place]ha-wound Skin Appearance) Assessed -Moisture (Farrah-wound Skin Appearance Assessed ) -Color (Farrah-wound Skin Appearance) Assessed -Temperature (Farrah-wound Skin No Abnormality Appearance) (Pt Warm) -Tenderness on Palpation (Farrah-wound No Skin Appearance) -Ulcer Cleansing Wound Cleanser -Foul Odor after Cleansing No -Anesthetic Used 4% Lidocaine Solution WC - Nurse 2 - General Ulcer CM Notes Start: 11/21/18 15:26 Freq: Status: Active Protocol: Activity Type Activity Date Activity User E-Sign Co-Sign Detail Recorded Client Recorded Date Recorded By Document 11/21/18 16:24 AN [id number] 11/21/18 16:46 AN 11/21/18 16:24 Wound Center Nurse 2 [Procedure/Treatment] -Time 16:34 -Correct Patient Yes -Correct Side, Site, Position Yes -Correct Procedure Yes -Procedure Performed Yes -Type of Procedure Debridement -Clinical Debridement Subcutaneous -Post Debridement Size (cm) - Length 0.4 -Post Debridement Size (cm) - Width 1.0 -Post Debridement Size (cm) - Depth 0.9 -Total Square Cm 0.40 -Wound/Ulcer Outcome Not Healed -Ulcer Cleansing Rinsed/ Irrigated with Saline -Foul Odor after Cleansing No -Bioengineered Tissue No -Bleeding Controlled with Pressure -Offloading No -Treatment Response Procedure Tolerated Well [See Physician Procedure note for Specifics] Pain Scale: 0-10 Numeric [Pain] -Is Patient Pain Free? Yes Musculoskeletal: No Tenderness to Palpation of Joints or Extremities, No Muscle Wasting Neurological: Neuro grossly intact Psych/Mental Status: Normal Affect, Appropriate Debridement Note Post-Debridement Measurements/Treatment WC - Nurse 2 - General Ulcer CM Notes Start: 11/21/18 15:26 Freq: Status: Active Protocol: Activity Type Activity Date Activity User E-Sign Co-Sign Detail Recorded Client Recorded Date Recorded By Document 11/21/18 16:24 AN [id number] 11/21/18 16:46 AN 11/21/18 16:24 Wound Center Nurse 2 1. R buttock -Time 16:34 -Correct Patient Yes -Correct Side, Site, Position Yes -Correct Procedure Yes -Procedure Performed Yes -Type of Procedure Debridement -Clinical Debridement Subcutaneous -Post Debridement Size (cm) - Length 0.4 -Post Debridement Size (cm) - Width 1.0 -Post Debridement Size (cm) - Depth 0.9 -Total Square Cm 0.40 -Wound/Ulcer Outcome Not Healed -Ulcer Cleansing Rinsed/ Irrigated with Saline -Foul Odor after Cleansing No -Bioengineered Tissue No -Bleeding Controlled with Pressure -Offloading No -Treatment Response Procedure Tolerated Well Pain Scale: 0-10 Numeric Is Patient Pain Free? 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 2. Hx of gastric bypass Plan: Patient was evaluated at the wound clinic today. A subcutaneous devridement was performed today. The patient tolerated the procedure well. The patient's wound care will consist of daily silver dressing to the ulcer, including packing it into the tunneling area. She will stop the Dakin's as previously prescribed. She will finish her antibiotics as prescribed by Dr. Mario. Encouraged high protein diet. She will follow up next Tuesday with Dr. House for a surgical evaluation for further debridement. Code Visit Office Visits / Consults: [id number] OV L3 Est - 25 modifier [id number]: [id number] Sandy subq tissue 20 sq cm/<
--- NOTE | 2018-11-21 17:55 | HP.PCM_ITS ---
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 History of Wound: Issue with this ulcer started 03/24/18 when it started draining. She initially went to her PCP, Dr. Valiente who cultured it and placed her on antibiotics. She was sent to Dr. Mario 05/08/18 who took over care. She had had several I&D's in the office, wound cultures and antibiotics. She went to the OR 08/31/18 for I&D. Wound Cultures were Streptococcocus group C,Staphylococcus pseudintermediu and Anaerobic cocci and was treated with Levaquin and Flagyl. On 10/25/18 a wound culture was positive for Streptococcus group A and group C and Provetella Melaningogenica and placed on Cefdinir and Flagyl. On 11/03/18 OR for an I&D and Dr. Platt was present to rule out a fistula from the wound to either the vagina or rectum, wound cultures showed Streptococcus group C and Anaerobic cocci, placed on Cefdinir and and flagyl. She has been using Dakin's solution to pack the wound but is having itching due to having a bleach sensitivity. She does have a history of gastric bypass. She states she is eating pleanty of protein. Denies any fevers or poor appetite. 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) Hx of gastric bypass (Chronic) 2012 Surgical History: hysterectomy, - - Left carpal tunnel surgery Allergies/Adverse Reactions: Allergies Penicillins [PCN] Allergy (Verified 11/16/18 13:01) Rash RAPID HEARTRATE silicone [Silicone] Allergy (Verified 11/16/18 13:01) Rash hydrochlorothiazide Adverse Reaction (Verified 11/16/18 13:01) Other Fhpnwln-Ojd-Xcb Reductase Inhibitor Adverse Reaction (Verified 11/16/18 13:01) Other CRAMPING IN LEGS topiramate [From Topamax] Adverse Reaction (Verified 11/16/18 13:01) Chest tightness Home Medications: Ambulatory Orders Medication Instructions Recorded Duloxetine Hcl [Cymbalta] 60 mg PO DAILY 06/19/13 Ergocalciferol [Vitamin D] 50,000 unit PO Q7D 06/19/13 Levothyroxine [Synthroid] 50 mcg PO DAILY 06/19/13 Omeprazole [Prilosec] 20 mg PO BID 06/19/13 Biotin 10 mg PO DAILY 12/22/13 Calcium Citrate/Vitamin D3 2 ea PO BID 06/23/17 [Calcium Citrate-Vit D3 Tablet] Cyanocobalamin (Vitamin B-12) 500 mcg PO DAILY 06/23/17 [Vitamin B-12] Tizanidine HCl [Zanaflex] 4 mg PO DAILY 06/23/17 Acetaminophen [Tylenol] 1,000 mg PO Q8H PRN PRN tab 07/01/17 Oxybutynin [Ditropan] 15 mg PO DAILY 10/18/18 Rizatriptan Benzoate [Maxalt] 5 mg PO .X1 PRN 10/18/18 Levofloxacin [Levaquin] 500 mg PO DAILY #5 tab 10/25/18 metronidazole 500 mg tablet 500 mg PO TID #15 tab 11/08/18 cefdinir 300 mg capsule 300 mg PO Q12H #14 cap 11/16/18 metronidazole 500 mg tablet 500 mg PO Q8H #21 tab 11/16/18 sodium hypochlorite 0.25 % solution 1 irrig TOPICAL BID #473 ml 11/16/18 Smoking Status: Never smoker Review of Systems Constitutional: Denies: Chills, Fever, Weight Change Eyes: Denies: Pain, Vision Change HEENT: Denies: Difficulty Hearing, Difficulty Swallowing, Sinus Congestion Cardiovascular: Denies: Chest Pain, Palpitations Respiratory: Denies: Cough, Shortness of Breath Gastrointestinal: Denies: Diarrhea, Nausea, Vomiting Genitourinary: Denies: Dysuria, Hematuria Musculoskeletal: Denies: Joint Pain Skin: Reports: Wounds - Right buttock ulcer that started 03/29 Neurological: Denies: Balance problems, Blurred vision, Change in Speech, Slurred speech Psychiatric: Denies: Anxiety Endocrine: Reports: Heat/ Cold Intolerance - Physical Exam Vital Signs Temp Pulse Resp BP 97 F L 67 18 132/94 H 11/21/18 15:26 11/21/18 15:26 11/21/18 15:26 11/21/18 15:26 General: Alert, Oriented x3, Cooperative HEENT: Atraumatic, PERRLA Oral: Moist Mucosa Lungs: Clear to auscultation, Normal air movement Cardiovascular: Regular rate, Regular Rhythm Abdomen: Bowel Sounds Present, Soft Extremities: No edema, Capillary Refill Less than 3 Seconds, Peripheral Pulses Normal Skin: Ulcer/ Wound - Right buttock opened ulcer with tunneling at 9 o'clock Wound Measurements and Assessment WC - Nurse 1 - General Ulcer Measurement Start: 11/21/18 15:26 Freq: Status: Active Protocol: Activity Type Activity Date Activity User E-Sign Co-Sign Detail Recorded Client Recorded Date Recorded By Document 11/21/18 15:26 RB [id number] 11/21/18 15:30 RB 11/21/18 15:26 Wound Center Nurse 1 [Ulcer Assessment] 1. R buttock -Combined with other wound No -Current Size (cm) - Length 0.3 -Current Size (cm) - Width 1.3 -Current Size (cm) - Depth 1.5 -Total Square Cm 0.39 -Photo Taken Yes -Tunneling No -Undermining/Tunneling No -Circular Undermining No -Exudate Amt Small -Exudate Type Serosanguineous -Wound Margin Distinct, Outline Attached -Granulation Amt Medium (34-66%) -Granulation Quality [place] -Slough/Fibrin Yes -Necrosis Amt Small (1-33%) -Necrotic Tissue Type Adherent Slough -Structure Exposed N/A -Texture (Farrah-wound Skin Appearance) Assessed -Moisture (Farrah-wound Skin Appearance Assessed ) -Color (Farrah-wound Skin Appearance) Assessed -Temperature (Farrah-wound Skin No Abnormality Appearance) (Pt Warm) -Tenderness on Palpation (Farrah-wound No Skin Appearance) -Ulcer Cleansing Wound Cleanser -Foul Odor after Cleansing No -Anesthetic Used 4% Lidocaine Solution WC - Nurse 2 - General Ulcer CM Notes Start: 11/21/18 15:26 Freq: Status: Active Protocol: Activity Type Activity Date Activity User E-Sign Co-Sign Detail Recorded Client Recorded Date Recorded By Document 11/21/18 16:24 AN [id number] 11/21/18 16:46 AN 11/21/18 16:24 Wound Center Nurse 2 [Procedure/Treatment] -Time 16:34 -Correct Patient Yes -Correct Side, Site, Position Yes -Correct Procedure Yes -Procedure Performed Yes -Type of Procedure Debridement -Clinical Debridement Subcutaneous -Post Debridement Size (cm) - Length 0.4 -Post Debridement Size (cm) - Width 1.0 -Post Debridement Size (cm) - Depth 0.9 -Total Square Cm 0.40 -Wound/Ulcer Outcome Not Healed -Ulcer Cleansing Rinsed/ Irrigated with Saline -Foul Odor after Cleansing No -Bioengineered Tissue No -Bleeding Controlled with Pressure -Offloading No -Treatment Response Procedure Tolerated Well [See Physician Procedure note for Specifics] Pain Scale: 0-10 Numeric [Pain] -Is Patient Pain Free? Yes Musculoskeletal: No Tenderness to Palpation of Joints or Extremities, No Muscle Wasting Neurological: Neuro grossly intact Psych/Mental Status: Normal Affect, Appropriate Debridement Note Post-Debridement Measurements/Treatment WC - Nurse 2 - General Ulcer CM Notes Start: 11/21/18 15:26 Freq: Status: Active Protocol: Activity Type Activity Date Activity User E-Sign Co-Sign Detail Recorded Client Recorded Date Recorded By Document 11/21/18 16:24 AN [id number] 11/21/18 16:46 AN 11/21/18 16:24 Wound Center Nurse 2 1. R buttock -Time 16:34 -Correct Patient Yes -Correct Side, Site, Position Yes -Correct Procedure Yes -Procedure Performed Yes -Type of Procedure Debridement -Clinical Debridement Subcutaneous -Post Debridement Size (cm) - Length 0.4 -Post Debridement Size (cm) - Width 1.0 -Post Debridement Size (cm) - Depth 0.9 -Total Square Cm 0.40 -Wound/Ulcer Outcome Not Healed -Ulcer Cleansing Rinsed/ Irrigated with Saline -Foul Odor after Cleansing No -Bioengineered Tissue No -Bleeding Controlled with Pressure -Offloading No -Treatment Response Procedure Tolerated Well Pain Scale: 0-10 Numeric Is Patient Pain Free? 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 2. Hx of gastric bypass Plan: Patient was evaluated at the wound clinic today. A subcutaneous devridement was performed today. The patient tolerated the procedure well. The patient's wound care will consist of daily silver dressing to the ulcer, incl uding packing it into the tunneling area. She will stop the Dakin's as previously prescribed. She will finish her antibiotics as prescribed by Dr. Mario. Encouraged high protein diet. She will follow up next Tuesday with Dr. House for a surgical evaluation for further debridement. Code Visit Office Visits / Consults: [id number] OV L3 Est - 25 modifier 111xxx-113xx: [id number] Sandy subq tissue 20 sq cm/<
[2018-12-05 14:43] VITALS: BP 135/82; PULSE 64; RESP 16; TEMP 36.4; BMI 29.2
--- NOTE | 2018-12-05 16:17 | PCM.WC.PN ---
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 History of Wound: Issue with this ulcer started 03/24/18 when it started draining. She initially went to her PCP, Dr. Valiente who cultured it and placed her on antibiotics. She was sent to Dr. Mario 05/08/18 who took over care. She had had several I&D's in the office, wound cultures and antibiotics. She went to the OR 08/31/18 for I&D. Wound Cultures were Streptococcocus group C,Staphylococcus pseudintermediu and Anaerobic cocci and was treated with Levaquin and Flagyl. On 10/25/18 a wound culture was positive for Streptococcus group A and group C and Provetella Melaningogenica and placed on Cefdinir and Flagyl. On 11/03/18 OR for an I&D and Dr. Platt was present to rule out a fistula from the wound to either the vagina or rectum, wound cultures showed Streptococcus group C and Anaerobic cocci, placed on Cefdinir and and flagyl. She has been using Dakin's solution to pack the wound but is having itching due to having a bleach sensitivity. She does have a history of gastric bypass. She states she is eating pleanty of protein. Denies any fevers or poor appetite. Progress of Wound: Outer ulcer is healed but there is a pinhole at 9 o'clock. - Physical Exam Vital Signs Temp Pulse Resp BP 97.5 F L 64 16 135/82 H 12/05/18 14:43 12/05/18 14:43 12/05/18 14:43 12/05/18 14:43 General: Alert, Oriented x3, Cooperative HEENT: Atraumatic Oral: Moist Mucosa Lungs: Normal air movement Cardiovascular: Regular rate Skin: Ulcer/ Wound - right buttocks with tunneling at 9 o'clock Wound Measurements and Assessment WC - Nurse 1 - General Ulcer Measurement Start: 11/21/18 15:26 Freq: Status: Active Protocol: Activity Type Activity Date Activity User E-Sign Co-Sign Detail Recorded Client Recorded Date Recorded By Document 12/05/18 14:43 MW [id number] 12/05/18 14:53 MW 12/05/18 14:43 Wound Center Nurse 1 [Ulcer Assessment] 1. R buttock -Combined with other wound No -Current Size (cm) - Length 0.1 -Current Size (cm) - Width 0.1 -Current Size (cm) - Depth 0.1 -Total Square Cm 0.01 -Photo Taken No -Epithelialization Large 67-100% -Tunneling No -Undermining/Tunneling No -Circular Undermining No -Exudate Amt None Present -Wound Margin Flat & Intact -Granulation Amt None Present (0 %) -Granulation Quality N/A -Slough/Fibrin Yes -Necrosis Amt Small (1-33%) -Necrotic Tissue Type Adherent Slough -Structure Exposed N/A -Texture (Farrah-wound Skin Appearance) Assessed Scarring -Moisture (Farrah-wound Skin Appearance No Abnormality ) Assessed -Color (Farrah-wound Skin Appearance) No Abnormality Assessed -Temperature (Farrah-wound Skin No Abnormality Appearance) (Pt Warm) -Tenderness on Palpation (Farrah-wound Yes Skin Appearance) -Ulcer Cleansing Rinsed/ Irrigated with Saline -Foul Odor after Cleansing No -Anesthetic Used 5% Lidocaine Gel [Edema Assessment] -Lower Limb Edema Present No WC - Nurse 2 - General Ulcer CM Notes Start: 11/21/18 15:26 Freq: Status: Active Protocol: Activity Type Activity Date Activity User E-Sign Co-Sign Detail Recorded Client Recorded Date Recorded By Document 12/05/18 15:21 [id number] 12/05/18 15:23 12/05/18 15:21 Wound Center Nurse 2 [Procedure/Treatment] 1. R buttock -Time 15:22 -Correct Patient Yes -Correct Side, Site, Position Yes -Correct Procedure Yes -Procedure Performed Yes -Type of Procedure Debridement -Clinical Debridement Subcutaneous -Post Debridement Size (cm) - Length 0.2 -Post Debridement Size (cm) - Width 0.2 -Post Debridement Size (cm) - Depth 1.5 -Total Square Cm 0.04 -Wound/Ulcer Outcome Not Healed -Ulcer Cleansing Rinsed/ Irrigated with Saline -Foul Odor after Cleansing No -Bioengineered Tissue No -Bleeding Controlled with Pressure -Offloading No -Treatment Response Procedure Tolerated Well [See Physician Procedure note for Specifics] Pain Scale: 0-10 Numeric [Pain] -Is Patient Pain Free? Yes Debridement Note Post-Debridement Measurements/Treatment WC - Nurse 2 - General Ulcer CM Notes Start: 11/21/18 15:26 Freq: Status: Active Protocol: Activity Type Activity Date Activity User E-Sign Co-Sign Detail Recorded Client Recorded Date Recorded By Document 11/21/18 16:24 AN [id number] 11/21/18 16:46 AN Document 12/05/18 15:21 JF [id number] 12/05/18 15:23 JF 11/21/18 12/05/18 16:24 15:21 Wound Center Nurse 2 1. R buttock -Time 16:34 15:22 -Correct Patient Yes Yes -Correct Side, Site, Position Yes Yes -Correct Procedure Yes Yes -Procedure Performed Yes Yes -Type of Procedure Debridement Debridement -Clinical Debridement Subcutaneous Subcutaneous -Post Debridement Size (cm) - Length 0.4 0.2 -Post Debridement Size (cm) - Width 1.0 0.2 -Post Debridement Size (cm) - Depth 0.9 1.5 -Total Square Cm 0.40 0.04 -Wound/Ulcer Outcome Not Healed Not Healed -Ulcer Cleansing Rinsed/ Rinsed/ Irrigated with Irrigated with Saline Saline -Foul Odor after Cleansing No No -Bioengineered Tissue No No -Bleeding Controlled with Pressure Pressure -Offloading No No -Treatment Response Procedure Procedure Tolerated Well Tolerated Well Pain Scale: 0-10 Numeric Is Patient Pain Free? 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 2. Hx of gastric bypass Plan: Patient was evaluated at the wound clinic today. A subcutaneous debridement was performed today. The patient tolerated the procedure well. The patient's wound care will consist of daily silver dressing to the ulcer, including packing it into the tunneling area. She will stop the Dakin's as previously prescribed. She will finish her antibiotics as prescribed by Dr. Mario. Encouraged high protein diet. She will follow up next Tuesday with Dr. House for a surgical evaluation for further debridement. Code Visit 111xxx-113xx: [id number] Sandy subq tissue 20 sq cm/<
== END 2018-12-10 23:59 ==
LOC: WC 14:45
PROVIDERS: Family Provider Family Medicine; PCP Family Medicine; Referring Provider Surgery; Visit Provider Nurse Practitioner Family
DX: L98.412 Non-pressure chronic ulcer of buttock with fat layer exposed (principal); Z98.84 Bariatric surgery status
CPT/HCPCS: 11042; 99202; G0463

== ENCOUNTER → 2018-12-05 15:52 | Outpatient (CLI) | payer MEDICARE, SELFPAY ==
[2018-12-05 14:43] VITALS: BMI 29.2
[2018-12-05 18:28] LABS: Estradiol 56.8 pg/mL; Follicle Stimulating Hormone 3.4 mIU/mL; Free T3 2.3 pg/mL (2.18-3.98); Luteinizing Hormone 1.6 mIU/mL; T4 Free Direct 0.98 ng/dL (0.76-1.46); Thyroid Stim Hormone (TSH) 1.08 uIU/mL (0.358-3.74)
== END ==
PROVIDERS: Family Provider Family Medicine; PCP Family Medicine; Referring Provider Obstetrics & Gynecology; Visit Provider Obstetrics & Gynecology
DX: N95.9 Unspecified menopausal and perimenopausal disorder (principal); N95.1 Menopausal and female climacteric states; N92.0 Excessive and frequent menstruation with regular cycle
CPT/HCPCS: 11042; 36415; 82670; 83001; 83002; 84144; 84439; 84443; 84481

== ENCOUNTER 2018-12-28 10:51 | Observation (INO) | payer MEDICARE, SELFPAY ==
[2018-12-11 08:39] VITALS: BMI 29.2
[2018-12-28] VITALS (10 sets, daily range): BP systolic 123–146; BP diastolic 69–93; PULSE 56–84; RESP 16–18; TEMP 36.3–37.4; O2SAT 98–100; BMI 28.3
--- NOTE | 2018-12-28 | UL_PTH ---
PATIENT: ALFONSO TORO LOC: MS3 U#:[id number] AGE/SX: 43/F ROOM: [facility] [place] RE12/28/[address]: Dr. Itz House MD : 1975 BED: 1 DIS: 12/30/2018 SPEC #: [id number] RECD: 12/28/18 14:28 STATUS: FAN REQ #: [id number] LUTHER: 12/28/18 00:[address]: Itz House DEPT: SURGICAL PATHOLOGY RECD BY: Delio Tinajero ENTERED: 12/28/18 14:28 SP TYPE: ULCER OTHR DR: Dr. Ronnell Moreno MD Tissues: ULCER Procedures: Surgery Specimen Level III HEADER OPERATION: Incision and drainage, excisional debridement abscess gluteal/ischial area PRE-OP DIAGNOSIS: Decubitus ulcer right buttock; nonhealing ulcer of buttock with fat layer exposed TISSUE SUBMITTED: Tissue nonhealing ulcer right inferior gluteal/ischial area MICROSCOPIC DIAGNOSIS Right inferior gluteal/ischial area, biopsy: A piece of skin with underlying tissue with focal dermal fibrosis, consistent with scar. GREG:rasheed 12/29/18 MICROSCOPIC DESCRIPTION Slides are reviewed. GROSS DESCRIPTION Received in fixative is one container labeled with the patient's name and designated tissue nonhealing ulcer right inferior gluteal/ischial area. The specimen consists of a piece of skin with underlying tissue measuring 3.5 x 2 cm and up to 4.5 cm in thickness. The skin surface shows focal area of healed scar. No mass lesion is identified. Medical Artist sections are submitted in two cassettes. / GREG:rasheed 12/28/18 TC:5 CPT: 70953
--- NOTE | 2018-12-28 10:39 | PCM.OPRPT ---
Report of Operation Date of Procedure: 12/28/18 Pre-Operative Diagnosis: 1. Complex nonhealing abscess ulcer right inferior gluteal/ischial area near perineum. 2. Hx of gastric bypass. Post-Operative Diagnosis: 1. Complex nonhealing abscess ulcer right inferior gluteal/ischial area and vulval area with extension to perineum and inferior labia. 2. Hx of gastric bypass. Surgery/Procedure Performed:: Surgical preparation right inferior gluteal/ischial area and vulval area with extension to perineum and inferior labia with incision and drainage and excisional debridement complex nonhealing abscess ulcer and partial vulvectomy including deep subcutaneous tissue (26 cm2). Description of Surgical Findings:: Issue with this ulcer started 03/24/18 when it started draining. She initially went to her PCP, Dr. Valiente who cultured it and placed her on antibiotics. She was sent to Dr. Mario 05/08/18 who took over care. She had had several I&D's in the office, wound cultures and antibiotics. She went to the OR 08/31/18 for I&D. Wound Cultures were Streptococcocus group C,Staphylococcus pseudintermediu and Anaerobic cocci and was treated with Levaquin and Flagyl. On 10/25/18 a wound culture was positive for Streptococcus group A and group C and Provetella Melaningogenica and placed on Cefdinir and Flagyl. On 11/03/18 OR for an I&D and Dr. Platt was present to rule out a fistula from the wound to either the vagina or rectum, wound cultures showed Streptococcus group C and Anaerobic cocci, placed on Cefdinir and flagyl. She has been using Dakin's solution to pack the wound but is having itching due to having a bleach sensitivity. She does have a history of gastric bypass. She states she is eating pleanty of protein. Denies any fever or poor appetite. CT Pelvis was done which showed no abscess. I was asked to evaluate this patient for surgical options for treatment. Size of defect right inferior gluteal/ischial area and vulval area with extension to perineum and inferior labia - 6.5 x 4 x 4 cm. channel executive: None Type of Anesthesia:: General Specimen's removed: Nonhealing abscess ulcer right inferior gluteal/ischial area and vulval area with extension to perineum and inferior labia to Pathology and Microbiology. Drains: None. Estimated Blood Loss (mL): 50 ml. Description of Procedure: Patient was taken to OR in supine position and was placed under general anesthesia. She was then placed in the prone position. The gluteal area, perineum, and vulval area were prepped and draped in the usual fashion. SCD's were placed for DVT prophylaxis. Perioperative antibiotics were given intravenously. Using xylocaine with epinephrine, the complex nonhealing abscess ulcer was infiltrated. After waiting 5 minutes for the anesthetic to take effect, I proceeded with incision and drainage around the previous scar. No pus was seen. There was a lot of fat necrosis present and scattered dense scarring present throughout the wound. The scarring extending toward the perineum. The extensive fat necrosis and associated scarring was excised and debrided. This debridement involved the perineum with extension to the vulva with excision and debridement of the inferior labia. Excision went into the deep subcutaneous tissue. I placed my finger into the vagina and I could not appreciate any communication between the vaginal wall and the wound. The extent of the wound was close to the vaginal wall. The extent of the wound went into the perineum. I placed my finger into the anus and I could not appreciate any communication between the anorectal wall and the wound. Tissue that was excised and debrided was sent to Pathology for analysis to rule out carcinoma and to Microbiology for culture. A positive culture will necessitate antibiotic therapy. The wound was irrigated with saline. Hemostasis was obtained with electrocautery. The size of the defect involving the right inferior gluteal/ischial area and vulva with extension to perineum and inferior labia was 6.5 x 4 x 4 cm or 26 cm2. The wound was then packed with Mepitel nonadherent dressing followed by Kerlix gauze and Betadine followed by dry Kerlix gauze and ABD pad compression dressing. Patient tolerated the procedure well and was sent to PACU in satisfactory condition. Patient will be sent upstairs for continued postop care. Will redress the wound tomorrow with Aquacel Silver. After discharge will followup at the Wound Center. Grafts/Implants Used: None. - Complications None. - Admit VTE Documentation VTE Present on Admission: No VTE Mechan Device Prophylaxis: SCD's VTE Pharm Prophylaxis ordered?: No Code Visit Surgery Charges CPT - 15849 ICD-10 - L02.31, L98.412, N76.6, N76.4, Z98.84 48562 N76.4, N76.6, L98.412, L02.31 Z98.84
--- NOTE | 2018-12-28 11:15 | PCM.RX.CS ---
Consult Pharmacy has been consulted to manage selected antiobiotic: Vancomycin Type of Consult: New start Suspected Infection: Skin/Soft tissue Prior Doses of Antibiotics Received/Current Regimen: 1 PREOP DOSE OF 1000MG Labs: VANCO TROUGH ORDERED FOR 12/29/18 @ 1930 30 MIN PRIOR TO 4TH DOSE Weight used for dosin.6 kg Estimated Creatinine Clearance: >100 Goal Trough: 10-15 mcg/mL - VANCOMYCIN 1250MG Q12H TO BEGIN 12HRS AFTER PREOP DOSE, VANCO TROUGH ORDERED FOR 12/29/18 @ 1930 30 MIN PRIOR TO 4TH DOSE Pharmacy Plan for Drug Dosing: Pharmacy Service will continue to monitor and adjust dosing as required.
[2018-12-28] MEDS: Lactated Ringers 1,000 ML 60 ML IV (12:30)
[2018-12-28] MEDS: Acetaminophen 500 MG Tablet 1000 MG PO (13:38)
--- NOTE | 2018-12-28 15:59 | NURSING ---
wound photo: right gluteal crease/perineum
[2018-12-28] MEDS: oxyCODONE 5 MG Tablet 10 MG PO ×2 (16:37→20:53)
--- NOTE | 2018-12-28 21:51 | NURSING ---
While patient was up to the bathroom dressing fell out. New dressing applied.
[2018-12-28] MEDS: traZODone 50 MG Tablet PO (22:07)
[2018-12-28] MEDS: DiphenhydrAMINE 25 MG Capsule PO (22:07)
[2018-12-28] MEDS: Pantoprazole Sodium 20 MG Tablet PO (22:07)
[2018-12-28] MEDS: Docusate Sodium 100 MG Capsule PO (22:08)
[2018-12-28] MEDS: Zonisamide 50 MG Capsule 200 MG PO (22:08)
[2018-12-29 04:37] VITALS: BP 140/77; PULSE 57; RESP 16; TEMP 37.4; O2SAT 100
[2018-12-29] MEDS: Levothyroxine 50 MCG Tablet PO (04:40)
[2018-12-29] MEDS: oxyCODONE 5 MG Tablet 10 MG PO ×4 (04:41→20:25)
[2018-12-29 05:38] LABS: Hematocrit 38.6 % (37-47); Hemoglobin 13.2 g/dl (12.0-15.0); Mean Corp Hgb Conc 34.2 g/gl (32-36); Mean Corpuscular Hgb 32.2 pg (27.0-32.0); Mean Corpuscular Volume 94.1 fL (81-99); Platelet Count 198 K/mm3 (150-450); RBC Distribution Width CV 12.2 % (11.6-14.6); RBC Distribution Width SD 41.4 fl (35.1-43.9); White Blood Count 9.5 K/mm3 (4.4-11.0)
[2018-12-29 05:44] LABS: Scan Indicated on CBC? Y/N NO
[2018-12-29 05:53] LABS: Anion Gap 5 (5-15); BUN 11 mg/dL (7-18); BUN/Creat Ratio 17.6 RATIO (10-20); Calcium,Total 8.6 mg/dL (8.5-10.1); Chloride 111 mmol/L (98-107); Creatinine, Serum 0.62 mg/dL (0.55-1.02); EST Glomerular Filtration Rate 111 mL/min (>60); Est Glom Filt Rate - Afr Amer 135 mL/min (>60); Estimated Creatinine Clearance 97.78 ml/min; Glucose 98 mg/dL (74-106); Potassium 3.4 mmol/L (3.5-5.1); Prealbumin 24.1 mg/dL (20.0-40.0); Sodium Level 142 mmol/L (136-145)
[2018-12-29] MEDS: Acetaminophen 500 MG Tablet 1000 MG PO ×2 (09:13→17:45)
[2018-12-29] MEDS: Lactated Ringers 1,000 ML 60 ML IV (09:14)
[2018-12-29] MEDS: Multivitamins,Ther W-Minerals Tablet 1 TABLET PO (09:15)
[2018-12-29] MEDS: Ascorbic Acid 500 MG Tablet PO (09:15)
[2018-12-29] MEDS: Docusate Sodium 100 MG Capsule PO ×2 (09:15→22:08)
[2018-12-29] MEDS: Cyanocobalamin 500 MCG Tablet PO (09:15)
[2018-12-29] MEDS: DULoxetine Hcl 60 MG Capsule PO (09:15)
[2018-12-29] MEDS: Pantoprazole Sodium 20 MG Tablet PO ×2 (09:15→22:09)
[2018-12-29] MEDS: Oxybutynin 5 MG Tablet 15 MG PO (09:20)
[2018-12-29 11:24] VITALS: BP 111/65; PULSE 95; RESP 16; TEMP 37.1; O2SAT 99
--- NOTE | 2018-12-29 13:48 | PCM.PN.SRG ---
Subjective: Postop #1 Patient complains of wound pain. Tolerated the dressing change reasonably well but had some pain with it. - Physical Exam General: Alert, Oriented x3 HEENT: PERRLA, EOMI Oral: Moist Mucosa Neck: Supple Abdomen: Soft, Non-Distended Skin: Ulcer/ Wound - wound is stable. No active bleeding seen. Redressed with Aquacel Silver. Neurological: Cranial nerves II-XII grossly intact Psych/Mental Status: Normal Affect, Appropriate Vital Signs Temp Pulse Resp BP Pulse Ox 98.7 F 95 16 111/65 99 12/29/18 11:24 12/29/18 11:24 12/29/18 11:24 12/29/18 11:24 12/29/18 11:24 Oxygen Delivery Method Room Air Weight: 160 lb 0.184 oz Body Mass Index (BMI) 28.3 Intake and Output for Last 24 Hours 12/27/18 12/28/18 12/29/18 23:59 23:59 23:59 Intake Total 1504 / 1504 323 / 323 Balance 1504 / 1504 323 / 323 Microbiology Past 72 Hours 12/28/18 10:42 Gram Stain - Final Tissue Ulcer - Tissue Wound Culture - Preliminary No growth-Final to follow Laboratory Tests Past 24 Hrs 12/29/18 12/29/18 05:05 05:05 WBC 9.5 RBC 4.10 L Hgb 13.2 Hct 38.6 MCV 94.1 MCH 32.2 H MCHC 34.2 RDW 12.2 RDW Differential 41.4 Plt Count 198 MPV 10.0 Sodium 142 Potassium 3.4 L Chloride 111 H Carbon Dioxide 26.0 Anion Gap 5 BUN 11 Creatinine 0.62 Estim Creat Clear Calc 97.78 Est GFR (MDRD) Af Amer 135 Est GFR (MDRD) Non-Af 111 BUN/Creatinine Ratio 17.6 Glucose 98 Calcium 8.6 Prealbumin 24.1 Medical Necessity - Tobacco Use Smoking Status: Never smoker Tobacco Use: Non-smoker Assessment/Plan All Active Problems (Last Reviewed 11/10/18 @ 09:47 by Camelia Ledezma) Hx of hysterectomy (Acute) Hx of cholecystectomy (Acute) History of carpal tunnel surgery of left wrist (Acute) Hemorrhoids (Acute) Acid reflux (Acute) Anxiety (Acute) Arthritis (Acute) Thyroid disorder (Acute) 1. Non-healing abscess ulcer right inferior gluteal/ischial area and vulval area with extension to perineum and inferior labia. 2. Hx of gastric bypass. Wound is stable. No active bleeding seen. Redressed with Aquacel Silver. She tolerated reasonably well but with some pain. Encourage ambulation with assist. She is a little unsteady on her feet due to pain in the wound with exposed gluteal muscle. Will add Valium for spasm. Will keep her one more day so she can continue ambulation with assist to get more steady on her feet in preparation for discharge. Anticipate discharge tomorrow. Will instruct the family on the dressing change prior to discharge. Operative culture is negative thus far. Continue Vancomycin and Flagyl. May send home on po antibiotics. Prealbumin was 24.1. Encourage nutritional supplementation with protein to help the healing process. Followup Wound Center after discharge.
[2018-12-29 16:14] VITALS: BP 125/86; PULSE 62; RESP 18; TEMP 37.1; O2SAT 98
[2018-12-29] MEDS: diazePAM 5 MG Tablet PO (16:25)
--- NOTE | 2018-12-29 19:06 | NURSING ---
Patient up ambulating in hallway at this time.
[2018-12-29 20:13] LABS: Vancomycin, Trough Level 11.9 ug/mL (5.0-15.0)
[2018-12-29 20:33] VITALS: BP 125/72; PULSE 65; RESP 16; TEMP 36.6; O2SAT 99
[2018-12-29] MEDS: DiphenhydrAMINE 25 MG Capsule PO (22:08)
[2018-12-29] MEDS: tiZANidine HCl 2 MG Tablet 4 MG PO (22:08)
[2018-12-29] MEDS: 0.9% NaCl Peripheral Flush Adult/Peds IV (22:08)
[2018-12-29] MEDS: Zonisamide 50 MG Capsule 200 MG PO (22:09)
[2018-12-29] MEDS: traZODone 50 MG Tablet PO (22:09)
--- NOTE | 2018-12-29 22:41 | PCM.RX.CS ---
Consult Pharmacy has been consulted to manage selected antiobiotic: Vancomycin Type of Consult: Follow-up Suspected Infection: Skin/Soft tissue Prior Doses of Antibiotics Received/Current Regimen: Medications Vancomycin HCl 1,250 mg/ (Sodium Chloride) 275 mls @ 167 mls/hr IV Q12H KANDY Last Admin: 12/29/18 20:25 Dose: 167 mls/hr Labs: Sodium 142 mmol/L (136-145) 12/29/18 05:05 Potassium 3.4 mmol/L (3.5-5.1) L 12/29/18 05:05 Chloride 111 mmol/L (98-107) H 12/29/18 05:05 Carbon Dioxide 26.0 mmol/L (21.0-32.0) 12/29/18 05:05 Anion Gap 5 (5-15) 12/29/18 05:05 BUN 11 mg/dL (7-18) 12/29/18 05:05 Creatinine 0.62 mg/dL (0.55-1.02) 12/29/18 05:05 Est GFR (MDRD) Af Amer 135 mL/min (>60) 12/29/18 05:05 Est GFR (MDRD) Non-Af 111 mL/min (>60) 12/29/18 05:05 BUN/Creatinine Ratio 17.6 RATIO (10-20) 12/29/18 05:05 Glucose 98 mg/dL (74-106) 12/29/18 05:05 Vancomycin Trough 11.9 ug/mL (5.0-15.0) 12/29/18 19:32 Microbiology: Microbiology 12/28/18 10:42 Tissue Ulcer - Tissue Gram Stain - Final 12/28/18 10:42 Tissue Ulcer - Tissue Wound Culture - Preliminary No growth-Final to follow Weight used for dosin.6 kg Estimated Creatinine Clearance: 98 Goal Trough: 10-15 mcg/mL Pharmacy Plan for Drug Dosing: Trough level of 11.9 was within target range of 10-15, so dose will be continued at 1250mg q12hrs. Next trough will be drawn in 4 days. Pharmacy Service will continue to monitor and adjust dosing as required. Follow-Up Labs: Trough Vancomycin Labs to be done on [date and time ordered]: 01/02/19 @4828
[2018-12-30] MEDS: Acetaminophen 500 MG Tablet 1000 MG PO (05:07)
[2018-12-30] MEDS: Levothyroxine 50 MCG Tablet PO (05:07)
[2018-12-30] MEDS: oxyCODONE 5 MG Tablet 10 MG PO ×3 (05:07→14:04)
[2018-12-30 05:10] VITALS: BP 119/62; PULSE 62; RESP 16; TEMP 36.6; O2SAT 97
[2018-12-30 08:18] LABS: Anion Gap 5 (5-15); BUN 15 mg/dL (7-18); BUN/Creat Ratio 26.9 RATIO (10-20); Calcium,Total 7.9 mg/dL (8.5-10.1); Chloride 110 mmol/L (98-107); Creatinine, Serum 0.56 mg/dL (0.55-1.02); EST Glomerular Filtration Rate 127 mL/min (>60); Est Glom Filt Rate - Afr Amer 153 mL/min (>60); Estimated Creatinine Clearance 108.26 ml/min; Glucose 88 mg/dL (74-106); Potassium 3.6 mmol/L (3.5-5.1); Sodium Level 140 mmol/L (136-145)
[2018-12-30] MEDS: Ascorbic Acid 500 MG Tablet PO (08:32)
[2018-12-30] MEDS: Multivitamins,Ther W-Minerals Tablet 1 TABLET PO (08:32)
[2018-12-30] MEDS: Lactated Ringers 1,000 ML 60 ML IV (08:39)
[2018-12-30 08:46] LABS: Hematocrit 32.7 % (37-47); Hemoglobin 11.2 g/dl (12.0-15.0); Mean Corp Hgb Conc 34.3 g/gl (32-36); Mean Corpuscular Hgb 32.1 pg (27.0-32.0); Mean Corpuscular Volume 93.7 fL (81-99); Platelet Count 153 K/mm3 (150-450); RBC Distribution Width CV 12.4 % (11.6-14.6); RBC Distribution Width SD 41.2 fl (35.1-43.9); Red Blood Count 3.49 M/mm3 (4.2-5.4); White Blood Count 5.8 K/mm3 (4.4-11.0)
[2018-12-30 08:48] LABS: Scan Indicated on CBC? Y/N NO
[2018-12-30 10:00] VITALS: BP 114/75; PULSE 66; RESP 20; TEMP 36.6; O2SAT 98
[2018-12-30] MEDS: tiZANidine HCl 2 MG Tablet 4 MG PO (10:58)
[2018-12-30] MEDS: Docusate Sodium 100 MG Capsule PO (10:58)
[2018-12-30] MEDS: Oxybutynin 5 MG Tablet 15 MG PO (10:58)
[2018-12-30] MEDS: Pantoprazole Sodium 20 MG Tablet PO (10:58)
[2018-12-30] MEDS: Cyanocobalamin 500 MCG Tablet PO (10:58)
[2018-12-30] MEDS: DULoxetine Hcl 60 MG Capsule PO (10:59)
--- NOTE | 2018-12-30 12:14 | CM.UR ---
met face to face with patient and her . Previously independent with all ADLs and IADLs. states he is learning how to do wound care. DENIES need for HHC or any other needs. Christina Elias RN, [facility].
--- NOTE | 2018-12-30 12:52 | PCM.PN.SRG ---
Subjective: Postop #2 Patient resting comfortably. Tolerated dressing change well. Family was instructed on the dressing change. - Physical Exam General: Alert, Oriented x3 HEENT: PERRLA, EOMI Oral: Moist Mucosa Neck: Supple Abdomen: Soft, Non-Distended Skin: Ulcer/ Wound Neurological: Cranial nerves II-XII grossly intact Psych/Mental Status: Normal Affect, Appropriate Vital Signs Temp Pulse Resp BP Pulse Ox 97.9 F 66 20 H 114/75 98 12/30/18 10:00 12/30/18 10:00 12/30/18 10:00 12/30/18 10:00 12/30/18 10:00 Oxygen Delivery Method Room Air Weight: 160 lb 0.184 oz Body Mass Index (BMI) 28.3 Intake and Output for Last 24 Hours 12/28/18 12/29/18 12/30/18 23:59 23:59 23:59 Intake Total 1504 / 1504 2439 / 2439 688 / 688 Balance 1504 / 1504 2439 / 2439 688 / 688 Microbiology Past 72 Hours 12/28/18 10:42 Gram Stain - Final Tissue Ulcer - Tissue Wound Culture - Preliminary Gram Positive Cocci Anaerobic Culture - Preliminary Laboratory Tests Past 24 Hrs 12/29/18 12/30/18 12/30/18 19:32 07:45 07:45 WBC Cancelled Corrected WBC Cancelled RBC Cancelled Hgb Cancelled Hct Cancelled MCV Cancelled MCH Cancelled MCHC Cancelled RDW Cancelled RDW Differential Cancelled Plt Count Cancelled MPV Cancelled Diff Path Review Cancelled Sodium 140 Potassium 3.6 Chloride 110 H Carbon Dioxide 25.0 Anion Gap 5 BUN 15 Creatinine 0.56 Estim Creat Clear Calc 108.26 Est GFR (MDRD) Af Amer 153 Est GFR (MDRD) Non-Af 127 BUN/Creatinine Ratio 26.9 H Glucose 88 Calcium 7.9 L Vancomycin Trough 11.9 12/30/18 08:15 WBC 5.8 Corrected WBC RBC 3.49 L Hgb 11.2 L Hct 32.7 L MCV 93.7 MCH 32.1 H MCHC 34.3 RDW 12.4 RDW Differential 41.2 Plt Count 153 MPV 10.0 Diff Path Review Sodium Potassium Chloride Carbon Dioxide Anion Gap BUN Creatinine Estim Creat Clear Calc Est GFR (MDRD) Af Amer Est GFR (MDRD) Non-Af BUN/Creatinine Ratio Glucose Calcium Vancomycin Trough Medical Necessity - Tobacco Use Smoking Status: Never smoker Tobacco Use: Non-smoker Assessment/Plan All Active Problems (Last Reviewed 11/10/18 @ 09:47 by Camelia Ledezma) Hx of hysterectomy (Acute) Hx of cholecystectomy (Acute) History of carpal tunnel surgery of left wrist (Acute) Hemorrhoids (Acute) Acid reflux (Acute) Anxiety (Acute) Arthritis (Acute) Thyroid disorder (Acute) 1. Non-healing abscess ulcer right inferior gluteal/ischial area and vulval area with extension to perineum and inferior labia. 2. Hx of gastric bypass. Wound is stable. No active bleeding seen. Redressed with Aquacel Silver. She tolerated reasonably well. Tolerating po analgesia. Instructed the family on the Silver dressing changes. They feel comfortable doing the dressing changes. Encourage ambulation with assist. She is more steady on her feet due to pain in the wound with exposed gluteal muscle. Operative culture shows Gram positive cocci. Will send home on Erythromycin, Bactrim, and Flagyl based on preop cultures as well. Prealbumin was 24.1. Encourage nutritional supplementation with protein to help the healing process. Discharge home today. Wrote scripts for Erythromycin, Bactrim DS, and Flagyl. Wrote scripts for Percocet for pain (50 tabs) and for Valium for spasm (20 tabs). Wrote scripts for Phenergan for nausea (30 tabs) and a refill and for Colace for constipation (60 tabs). Followup Wound Center after discharge.
--- NOTE | 2018-12-30 13:00 | PCM.DC ---
You will use the following diet at home:: No restrictions, Other - encourage nutritional supplementation with protein to help the healing process. Discharge Activity: May not drive while taking narcotic pain medications., May Shower - tomorrow at the time of the dressing change. May shower in (days): 1 May resume sexual activity in: 10-14 days Weight Bearing Status: Weight bearing as tolerated Call your doctor if your incision/area has: Continuous Slow Oozing, Sudden Increased Bleeding, Increased Pain/ Swelling, Increased Redness, Foul Smelling Discharge, Swelling at the incision site Call your doctor if you observe: Fever of 101 or Higher, Coldness, Increased Pain, Shortness of breath, Chest pain, Calf discomfort, Uncontrolled pain Change Dressing in (Days):: 1 - daily dressing change with Aquacel Silver followed by moistened kerlix gauze and ABD pad. Cleanse incision/area with: - - may get the wound wet in the shower at the time of the dressng change. Allergies/Adverse Reactions: Allergies Penicillins [PCN] Allergy (Verified 12/25/18 09:50) Rash RAPID HEARTRATE silicone [Silicone] Allergy (Verified 12/25/18 09:50) Rash hydrochlorothiazide Adverse Reaction (Verified 12/25/18 09:50) Other Uewxkqc-Ajg-Uko Reductase Inhibitor Adverse Reaction (Verified 12/25/18 09:50) Other CRAMPING IN LEGS topiramate [From Topamax] Adverse Reaction (Verified 12/25/18 09:50) Chest tightness Medications to take at Discharge Duloxetine Hcl [Cymbalta] 60 mg PO DAILY 06/19/13 Ergocalciferol [Vitamin D] 50,000 unit PO Q7D 06/19/13 Levothyroxine [Synthroid] 50 mcg PO DAILY 06/19/13 Omeprazole [Prilosec] 20 mg PO BID 06/19/13 Biotin 10 mg PO DAILY 12/22/13 Calcium Citrate/Vitamin D3 [Calcium Citrate-Vit D3 Tablet] 6 tab PO DAILY 06/23/17 Cyanocobalamin (Vitamin B-12) [Vitamin B-12] 500 mcg PO DAILY 06/23/17 Tizanidine HCl [Zanaflex] 4 mg PO DAILY 06/23/17 Oxybutynin [Ditropan] 15 mg PO DAILY 10/18/18 Rizatriptan Benzoate [Maxalt] 5 mg PO .X1 PRN 10/18/18 Ascorbic Acid [Vitamin C] 500 mg PO DAILY@0800 12/25/18 Multivitamin with Minerals [Multiple Vitamin] 1 each PO DAILY 12/25/18 Zonisamide [Zonegran] 200 mg PO QHS 12/25/18 traZODone [Desyrel] 100 mg PO QHS 12/25/18 0.9 % Sodium Chloride [Saline Wound Wash] 210 ml MC .QDAILY #4 solution 12/29/18 Gauze Bandage [Gauze Pads] 2 ea TP .QDAILY #60 bandage 12/29/18 Polyhexam Biguan/Gauze Bandage [Kerlix Amd Bandage 0.2% Roll] 1 ea TP .QDAILY #30 bandage 12/29/18 Silver/Hydrocolloid Dressing [Aquacel-Ag W-Hydrofiber Dress] 1 ea TP .QDAILY #15 bandage 12/29/18 Diazepam [Valium] 5 mg PO TID PRN PRN #20 tab 12/30/18 Docusate Sodium [Colace] 100 mg PO BID #60 cap 12/30/18 Erythromycin Base [Oscar-Tab] 333 mg PO TID #42 tab 12/30/18 Metronidazole [Flagyl] 500 mg PO TID #30 tab 12/30/18 Oxycodone HCl/Acetaminophen [Percocet 5/325] 1 - 2 tab PO 4X/DAY PRN PRN 7 Days #50 tab 12/30/18 proMETHazine tablet [Phenergan tablet] 25 mg PO 4X/DAY PRN PRN #30 tab 12/30/18 The following prescriptions were given: 0.9 % Sodium Chloride [Saline Wound Wash] 210 ml MC .QDAILY #4 solution Diazepam [Valium] 5 mg PO TID PRN PRN #20 tab PRN Reason: Spasms Gauze Bandage [Gauze Pads] 2 ea TP .QDAILY #60 bandage Oxycodone HCl/Acetaminophen [Percocet 5/325] 1 - 2 tab PO 4X/DAY PRN PRN 7 Days #50 tab PRN Reason: Pain Polyhexam Biguan/Gauze Bandage [Kerlix Amd Bandage 0.2% Roll] 1 ea TP .QDAILY #30 bandage proMETHazine tablet [Phenergan tablet] 25 mg PO 4X/DAY PRN PRN #30 tab PRN Reason: NAUSEA/VOMITING Silver/Hydrocolloid Dressing [Aquacel-Ag W-Hydrofiber Dress] 1 ea TP .QDAILY #15 bandage Docusate Sodium [Colace] 100 mg PO BID #60 cap Erythromycin Base [Oscar-Tab] 333 mg PO TID #42 tab Metronidazole [Flagyl] 500 mg PO TID #30 tab Primary Care Physician: Ronnell Moreno MD [Primary Care Provider] - Test Results: Test results from this visit will be discussed in further detail at your follow-up appointment, if applicable. Please Follow Up With: Itz House MD When: one week. call [phone] for appt. Please Follow Up With: Itz House MD When: 2 weeks at wound center. call [phone] for appt. Proposed Discharge Date: 12/30/18
--- NOTE | 2018-12-30 13:04 | DCINST_ITS ---
You will use the following diet at home:: No restrictions, Other - encourage nutritional supplementation with protein to help the healing process. Discharge Activity: May not drive while taking narcotic pain medications., May Shower - tomorrow at the time of the dressing change. May shower in (days): 1 May resume sexual activity in: 10-14 days Weight Bearing Status: Weight bearing as tolerated Call your doctor if your incision/area has: Continuous Slow Oozing, Sudden Increased Bleeding, Increased Pain/ Swelling, Increased Redness, Foul Smelling Discharge, Swelling at the incision site Call your doctor if you observe: Fever of 101 or Higher, Coldness, Increased Pain, Shortness of breath, Chest pain, Calf discomfort, Uncontrolled pain Change Dressing in (Days):: 1 - daily dressing change with Aquacel Silver followed by moistened kerlix gauze and ABD pad. Cleanse incision/area with: - - may get the wound wet in the shower at the time of the dressng change. Allergies/Adverse Reactions: Allergies Penicillins [PCN] Allergy (Verified 12/25/18 09:50) Rash RAPID HEARTRATE silicone [Silicone] Allergy (Verified 12/25/18 09:50) Rash hydrochlorothiazide Adverse Reaction (Verified 12/25/18 09:50) Other Voysoqb-Luy-Csf Reductase Inhibitor Adverse Reaction (Verified 12/25/18 09:50) Other CRAMPING IN LEGS topiramate [From Topamax] Adverse Reaction (Verified 12/25/18 09:50) Chest tightness Medications to take at Discharge Duloxetine Hcl [Cymbalta] 60 mg PO DAILY 06/19/13 Ergocalciferol [Vitamin D] 50,000 unit PO Q7D 06/19/13 Levothyroxine [Synthroid] 50 mcg PO DAILY 06/19/13 Omeprazole [Prilosec] 20 mg PO BID 06/19/13 Biotin 10 mg PO DAILY 12/22/13 Calcium Citrate/Vitamin D3 [Calcium Citrate-Vit D3 Tablet] 6 tab PO DAILY 06/23/17 Cyanocobalamin (Vitamin B-12) [Vitamin B-12] 500 mcg PO DAILY 06/23/17 Tizanidine HCl [Zanaflex] 4 mg PO DAILY 06/23/17 Oxybutynin [Ditropan] 15 mg PO DAILY 10/18/18 Rizatriptan Benzoate [Maxalt] 5 mg PO .X1 PRN 10/18/18 Ascorbic Acid [Vitamin C] 500 mg PO DAILY@0800 12/25/18 Multivitamin with Minerals [Multiple Vitamin] 1 each PO DAILY 12/25/18 Zonisamide [Zonegran] 200 mg PO QHS 12/25/18 traZODone [Desyrel] 100 mg PO QHS 12/25/18 0.9 % Sodium Chloride [Saline Wound Wash] 210 ml MC .QDAILY #4 solution 12/29/18 Gauze Bandage [Gauze Pads] 2 ea TP .QDAILY #60 bandage 12/29/18 Polyhexam Biguan/Gauze Bandage [Kerlix Amd Bandage 0.2% Roll] 1 ea TP .QDAILY #30 bandage 12/29/18 Silver/Hydrocolloid Dressing [Aquacel-Ag W-Hydrofiber Dress] 1 ea TP .QDAILY #15 bandage 12/29/18 Diazepam [Valium] 5 mg PO TID PRN PRN #20 tab 12/30/18 Docusate Sodium [Colace] 100 mg PO BID #60 cap 12/30/18 Erythromycin Base [Oscar-Tab] 333 mg PO TID #42 tab 12/30/18 Metronidazole [Flagyl] 500 mg PO TID #30 tab 12/30/18 Oxycodone HCl/Acetaminophen [Percocet 5/325] 1 - 2 tab PO 4X/DAY PRN PRN 7 Days #50 tab 12/30/18 proMETHazine tablet [Phenergan tablet] 25 mg PO 4X/DAY PRN PRN #30 tab 12/30/18 The following prescriptions were given: 0.9 % Sodium Chloride [Saline Wound Wash] 210 ml MC .QDAILY #4 solution Diazepam [Valium] 5 mg PO TID PRN PRN #20 tab PRN Reason: Spasms Gauze Bandage [Gauze Pads] 2 ea TP .QDAILY #60 bandage Oxycodone HCl/Acetaminophen [Percocet 5/325] 1 - 2 tab PO 4X/DAY PRN PRN 7 Days #50 tab PRN Reason: Pain Polyhexam Biguan/Gauze Bandage [Kerlix Amd Bandage 0.2% Roll] 1 ea TP .QDAILY #30 bandage proMETHazine tablet [Phenergan tablet] 25 mg PO 4X/DAY PRN PRN #30 tab PRN Reason: NAUSEA/VOMITING Silver/Hydrocolloid Dressing [Aquacel-Ag W-Hydrofiber Dress] 1 ea TP .QDAILY #15 bandage Docusate Sodium [Colace] 100 mg PO BID #60 cap Erythromycin Base [Oscar-Tab] 333 mg PO TID #42 tab Metronidazole [Flagyl] 500 mg PO TID #30 tab Primary Care Physician: Ronnell Moreno MD [Primary Care Provider] - Test Results: Test results from this visit will be discussed in further detail at your follow- up appointment, if applicable. Please Follow Up With: Itz House MD When: one week. call [phone] for appt. Please Follow Up With: Itz House MD When: 2 weeks at wound center. call [phone] for appt. Proposed Discharge Date: 12/30/18
[2018-12-30 14:30] VITALS: BP 124/84; PULSE 98; RESP 20; TEMP 36.6; O2SAT 100
== END 2018-12-30 15:20 | disposition home or self-care (01) ==
LOC: SDC 11:39
PROVIDERS: Admitting Provider Surgery; Family Provider Family Medicine; PCP Family Medicine; Referring Provider Surgery; Visit Provider Surgery
PROC: (CPT 15002; principal; 2018-12-28 08:50)
DX: L98.412 Non-pressure chronic ulcer of buttock with fat layer exposed (principal); L02.31 Cutaneous abscess of buttock; E07.9 Disorder of thyroid, unspecified; K21.9 Gastro-esophageal reflux disease without esophagitis; F41.9 Anxiety disorder, unspecified; M19.90 Unspecified osteoarthritis, unspecified site; Z79.899 Other long term (current) drug therapy; L90.5 Scar conditions and fibrosis of skin; Z98.84 Bariatric surgery status
CPT/HCPCS: 15002; 56620; 36415; 80048; 80202; 84134; 85027; 87070; 87075; 87077; 87102; 87186; 87205; 87206; 88304; 96365; 96366; 96367; 99218; J7050; J7120; A4216; G0378; G0379; J2405

== ENCOUNTER 2019-01-08 09:45 | Outpatient (RCR) | payer MEDICARE, SELFPAY ==
[2018-12-11 01:32] VITALS: BP 135/82; PULSE 64; RESP 16; TEMP 36.4
[2018-12-11 08:26] VITALS: BMI 29.2
[2018-12-11 08:39] VITALS: BP 121/83; PULSE 68; RESP 18; TEMP 37.1; BMI 29.2
--- NOTE | 2018-12-11 17:41 | PCM.WC.HP ---
History of Present Illness Date of Service: 12/11/18 Chief Complaint: Nonhealing ulcer right inferior gluteal/ischial area near perineum. History of Wound: Issue with this ulcer started 03/24/18 when it started draining. She initially went to her PCP, Dr. Valiente who cultured it and placed her on antibiotics. She was sent to Dr. Mario 05/08/18 who took over care. She had had several I&D's in the office, wound cultures and antibiotics. She went to the OR 08/31/18 for I&D. Wound Cultures were Streptococcocus group C,Staphylococcus pseudintermediu and Anaerobic cocci and was treated with Levaquin and Flagyl. On 10/25/18 a wound culture was positive for Streptococcus group A and group C and Provetella Melaningogenica and placed on Cefdinir and Flagyl. On 11/03/18 OR for an I&D and Dr. Platt was present to rule out a fistula from the wound to either the vagina or rectum, wound cultures showed Streptococcus group C and Anaerobic cocci, placed on Cefdinir and flagyl. She has been using Dakin's solution to pack the wound but is having itching due to having a bleach sensitivity. She does have a history of gastric bypass. She states she is eating pleanty of protein. Denies any fever or poor appetite. 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) Hx of gastric bypass (Chronic) 2012 Surgical History: hysterectomy, - - Left carpal tunnel surgery Allergies/Adverse Reactions: Allergies Penicillins [PCN] Allergy (Verified 11/16/18 13:01) Rash RAPID HEARTRATE silicone [Silicone] Allergy (Verified 11/16/18 13:01) Rash hydrochlorothiazide Adverse Reaction (Verified 11/16/18 13:01) Other Akzcicq-Wsj-Jnv Reductase Inhibitor Adverse Reaction (Verified 11/16/18 13:01) Other CRAMPING IN LEGS topiramate [From Topamax] Adverse Reaction (Verified 11/16/18 13:01) Chest tightness Home Medications: Ambulatory Orders Medication Instructions Recorded Duloxetine Hcl [Cymbalta] 60 mg PO DAILY 06/19/13 Ergocalciferol [Vitamin D] 50,000 unit PO Q7D 06/19/13 Levothyroxine [Synthroid] 50 mcg PO DAILY 06/19/13 Omeprazole [Prilosec] 20 mg PO BID 06/19/13 Biotin 10 mg PO DAILY 12/22/13 Calcium Citrate/Vitamin D3 2 ea PO BID 06/23/17 [Calcium Citrate-Vit D3 Tablet] Cyanocobalamin (Vitamin B-12) 500 mcg PO DAILY 06/23/17 [Vitamin B-12] Tizanidine HCl [Zanaflex] 4 mg PO DAILY 06/23/17 Acetaminophen [Tylenol] 1,000 mg PO Q8H PRN PRN tab 07/01/17 Oxybutynin [Ditropan] 15 mg PO DAILY 10/18/18 Rizatriptan Benzoate [Maxalt] 5 mg PO .X1 PRN 10/18/18 Levofloxacin [Levaquin] 500 mg PO DAILY #5 tab 10/25/18 metronidazole 500 mg tablet 500 mg PO TID #15 tab 11/08/18 cefdinir 300 mg capsule 300 mg PO Q12H #14 cap 11/16/18 metronidazole 500 mg tablet 500 mg PO Q8H #21 tab 11/16/18 sodium hypochlorite 0.25 % solution 1 irrig TOPICAL BID #473 ml 11/16/18 Smoking Status: Never smoker Review of Systems Constitutional: Denies: Chills, Fever, Weight Change. Eyes: Denies: Pain, Vision Change. HEENT: Denies: Difficulty Hearing, Difficulty Swallowing, Sinus Congestion. Cardiovascular: Denies: Chest Pain, Palpitations. Respiratory: Denies: Cough, Shortness of Breath. Gastrointestinal: Denies: Diarrhea, Nausea, Vomiting. Genitourinary: Denies: Dysuria, Hematuria. Musculoskeletal: Denies: Joint Pain. Skin: Reports: Wounds - Right buttock ulcer that started 03/29. Neurological: Denies: Balance problems, Blurred vision, Change in Speech, Slurred speech. Psychiatric: Denies: Anxiety. Endocrine: Reports: Heat/ Cold Intolerance - Physical Exam General: Alert, Oriented x3, Cooperative HEENT: PERRLA. EOMI. Oral: Moist Mucosa. Neck: Supple, nontender. No cervical adenopathy. Lungs: Clear to auscultation. Cardiovascular: Regular rate, Regular Rhythm. Abdomen: Soft, nondistended. Extremities: No edema, Capillary Refill Less than 3 Seconds, Peripheral Pulses Normal Skin: Ulcer/ Wound - Right inferior gluteal/ischial area near perineum. There is a small opening that tracks toward the perineum. It is too small to pack at this time. Musculoskeletal: No Tenderness to Palpation of Joints or Extremities, No Muscle Wasting Neurological: CN II - XII grossly intact Psych/Mental Status: Normal Affect, Appropriate Vital Signs Temp Pulse Resp BP 98.7 F 68 18 121/83 H 12/11/18 08:39 12/11/18 08:39 12/11/18 08:39 12/11/18 08:39 Wound Measurements and Assessment WC - Nurse 1 - General Ulcer Measurement Start: 12/11/18 08:26 Freq: Status: Active Protocol: Activity Type Activity Date Activity User E-Sign Co-Sign Detail Recorded Client Recorded Date Recorded By Document 12/11/18 08:39 AN [id number] 12/11/18 08:43 AN 12/11/18 08:39 Wound Center Nurse 1 [Ulcer Assessment] 1. R buttock -Combined with other wound No -Current Size (cm) - Length 0.1 -Current Size (cm) - Width 0.1 -Current Size (cm) - Depth 1.4 -Total Square Cm 0.01 -Photo Taken No -Epithelialization None Present -Tunneling No -Undermining/Tunneling No -Circular Undermining No -Classification - Thickness Full Thickness without Exposed Support Structure -Wound Margin Distinct, Outline Attached -Granulation Amt Large (67-100%) -Granulation Quality [place] -Slough/Fibrin No -Necrosis Amt None Present (0 %) -Structure Exposed None/Limited to Skin Breakdown -Texture (Farrah-wound Skin Appearance) Assessed -Moisture (Farrah-wound Skin Appearance Assessed ) -Color (Farrah-wound Skin Appearance) Assessed -Temperature (Farrah-wound Skin No Abnormality Appearance) (Pt Warm) -Tenderness on Palpation (Farrah-wound Yes Skin Appearance) -Ulcer Cleansing Rinsed/ Irrigated with Saline -Foul Odor after Cleansing No -Anesthetic Used 4% Lidocaine Solution WC - Nurse 2 - General Ulcer CM Notes Start: 12/11/18 08:26 Freq: Status: Active Protocol: Activity Type Activity Date Activity User E-Sign Co-Sign Detail Recorded Client Recorded Date Recorded By Document 12/11/18 08:45 [email or web address] 12/11/18 08:49 12/11/18 08:45 Wound Center Nurse 2 [Procedure/Treatment] -Correct Patient No -Correct Side, Site, Position No -Correct Procedure No -Procedure Performed No -Wound/Ulcer Outcome Not Healed -Ulcer Cleansing Rinsed/ Irrigated with Saline -Foul Odor after Cleansing No -Bioengineered Tissue No -Bleeding Controlled with Pressure -Offloading No -Treatment Response Procedure Tolerated Well [See Physician Procedure note for Specifics] Pain Scale: 0-10 Numeric [Pain] -Is Patient Pain Free? Yes Debridement Note Post-Debridement Measurements/Treatment WC - Nurse 2 - General Ulcer CM Notes Start: 12/11/18 08:26 Freq: Status: Active Protocol: Activity Type Activity Date Activity User E-Sign Co-Sign Detail Recorded Client Recorded Date Recorded By Document 12/11/18 08:45 [id number] 12/11/18 08:49 12/11/18 08:45 Wound Center Nurse 2 1. R buttock -Correct Patient No -Correct Side, Site, Position No -Correct Procedure No -Procedure Performed No -Wound/Ulcer Outcome Not Healed -Ulcer Cleansing Rinsed/ Irrigated with Saline -Foul Odor after Cleansing No -Bioengineered Tissue No -Bleeding Controlled with Pressure -Offloading No -Treatment Response Procedure Tolerated Well Pain Scale: 0-10 Numeric Is Patient Pain Free? Yes Wound debrided: #1 Right inferior gluteal/ischial area near perineum. Laterality: Right Wound Grade/Stage: 2. No debridement was completed today - the patient needs to have operative debridement. Assessment/Plan Assessment: 1. Non-healing ulcer right inferior gluteal/ischial area near perineum. 2. Hx of gastric bypass. Plan: Patient's ulcer is stable. It seems to heal and then drainage is seen. This has been going on for over 6 months. Recommend to the patient to proceed with operative intervention with surgical preparation right inferior gluteal/ischial area near perineum with incision and drainage and excisional debridement nonhealing ulcer. Will obtain deeper operative cultures. A positive culture patricia necessitate antibiotic therapy. Before surgery, will obtain a CT Pelvis to see if there is a deeper area of fluid collection that is contributing to the difficulty in healing this ulcer. Surgery will be under general anesthesia with a surgical observation overnight stay in the hospital. Anticipate increased metabolic demands from the chronic ulcer and planned surgery. Will check a Prealbumin and encourage nutritional supplementation with protein to help the healing process. Patient was informed of the risks and complications of the procedure including alternatives to surgery. These were discussed with her personally. She voices understanding and wishes to proceed. Followup after her surgery. Dr. Mario. Encouraged high protein diet. She will follow up next Tuesday with Dr. House for a surgical evaluation for further debridement.
--- NOTE | 2018-12-18 08:00 | CT_ITS ---
STUDY: CT PELVIS WITH CONTRAST REASON FOR EXAM: Female, 43 years old. Wound care. Ulcer right buttock. RADIATION DOSAGE (If Supplied By Facility): CTDIvol = ( 28.03 ) mGy, DLP = ( 1025.66 ) mGycm TECHNIQUE: Transaxial imaging of the pelvis was performed with oral contrast. 100cc IV Isovue 300 was administered intravenously. Individualized dose optimization techniques were used for this CT. COMPARISON: None. FINDINGS: Normal urinary bladder. Uterus not visualized compatible with hysterectomy. No adnexal masses seen. Normal visualized small intestine. Normal visualized colon. No intra-abdominal free air. There is no pelvic fluid. There is no pelvic lymphadenopathy or mass lesion. Normal visualized pelvic arteries. Normal abdominal wall. Degenerative of lower lumbar spine. Irregularity involving the skin and subcutaneous soft tissue is not appreciated aside from a very superficial sacral dimple in the midline which may not have clinical significance. No perirectal abscess. Peritoneum is normal. CT/Pelvis WITH IV Contrast IMPRESSION: No skin ulcer identified in the right gluteal region. Superficial midline sacral dimple which may not have clinical significance. Electronically Signed: Jaime Parmar MD at 7:31 EDT , Service support ,
[2018-12-18 08:13] VITALS: BP 128/78; PULSE 88; RESP 18; TEMP 36.9
[2019-01-08 09:53] VITALS: BP 121/97; PULSE 82; RESP 18; TEMP 37.3; BMI 29.2
--- NOTE | 2019-01-08 17:39 | PCM.WC.PN ---
Type of Wound Date of Service: 01/08/19 Chief Complaint: Nonhealing abscess ulcer right inferior gluteal/ischial area and vulval area with extension to perineum and inferior labia. History of Wound: Surgery 12/28/18 - Surgical preparation right inferior gluteal/ischial area and vulval area with extension to perineum and inferior labia with incision and drainage and excisional debridement complex nonhealing abscess ulcer and partial vulvectomy including deep subcutaneous tissue (26 cm2). Wound care - Aquacel Silver. Operative culture - MRSE. Perioperatively she was treated with Erythromycin, Bactrim DS, and Flagyl. MRSE was resistant to Erythromycin and Bactrim and they were stopped. She was started on Levaquin. She is finishing the Flagyl. Prealbumin from 12/29/18 was 24.1. Encouraged nutritional supplementation with protein to help the healing process. Today the patient denies fever. Her appetite is good. Progress of Wound: Recent surgery 12/28/18. - Physical Exam Vital Signs Temp Pulse Resp BP 99.1 F 82 18 121/97 H 01/08/19 09:53 01/08/19 09:53 01/08/19 09:53 01/08/19 09:53 Wound Measurements and Assessment WC - Nurse 1 - General Ulcer Measurement Start: 12/11/18 08:26 Freq: Status: Active Protocol: Activity Type Activity Date Activity User E-Sign Co-Sign Detail Recorded Client Recorded Date Recorded By Document 01/08/19 09:53 MW [id number] 01/08/19 10:06 MW 01/08/19 09:53 Wound Center Nurse 1 [Ulcer Assessment] 1. R buttock -Current Size (cm) - Length 3.3 -Current Size (cm) - Width 6.0 -Current Size (cm) - Depth 1.4 -Total Square Cm 19.80 -Date of Last Picture (Recall this 01/08/19 field) -Photo Taken Yes -Epithelialization None Present -Classification - Thickness Full Thickness with Exposed Support Structure -Exudate Amt Medium -Exudate Type Serosanguineous -Wound Margin Distinct, Outline Attached -Granulation Amt Large (67-100%) -Granulation Quality Red -Slough/Fibrin Yes -Necrosis Amt Small (1-33%) -Necrotic Tissue Type Adherent Slough -Structure Exposed Fat Layer Exposed -Texture (Farrah-wound Skin Appearance) Assessed -Moisture (Farrah-wound Skin Appearance Assessed ) -Color (Farrah-wound Skin Appearance) Assessed -Temperature (Farrah-wound Skin No Abnormality Appearance) (Pt Warm) -Tenderness on Palpation (Farrah-wound Yes Skin Appearance) -Ulcer Cleansing Rinsed/ Irrigated with Saline -Foul Odor after Cleansing No -Anesthetic Used 4% Lidocaine Solution - Nurse 2 - General Ulcer CM Notes Start: 12/11/18 08:26 Freq: Status: Active Protocol: Activity Type Activity Date Activity User E-Sign Co-Sign Detail Recorded Client Recorded Date Recorded By Document 01/08/19 10:35 [id number] 01/08/19 10:38 01/08/19 10:35 Wound Center Nurse 2 [Procedure/Treatment] -Time 10:37 -Correct Patient Yes -Correct Side, Site, Position Yes -Correct Procedure Yes -Procedure Performed Yes -Type of Procedure Debridement -Clinical Debridement Subcutaneous -Post Debridement Size (cm) - Length 3.0 -Post Debridement Size (cm) - Width 6.4 -Post Debridement Size (cm) - Depth 2.5 -Total Square Cm 19.20 -Wound/Ulcer Outcome Not Healed -Ulcer Cleansing Rinsed/ Irrigated with Saline -Foul Odor after Cleansing No -Bioengineered Tissue No -Bleeding Controlled with Pressure -Offloading No -Treatment Response Procedure Tolerated Well [See Physician Procedure note for Specifics] Pain Scale: 0-10 Numeric [Pain] -Is Patient Pain Free? Yes Debridement Note Post-Debridement Measurements/Treatment - Nurse 2 - General Ulcer CM Notes Start: 12/11/18 08:26 Freq: Status: Active Protocol: Activity Type Activity Date Activity User E-Sign Co-Sign Detail Recorded Client Recorded Date Recorded By Document 12/11/18 08:45 [id number] 12/11/18 08:49 Document 01/08/19 10:35 [id number] 01/08/19 10:38 12/11/18 01/08/19 08:45 10:35 Wound Center Nurse 2 1. R buttock -Time 10:37 -Correct Patient No Yes -Correct Side, Site, Position No Yes -Correct Procedure No Yes -Procedure Performed No Yes -Type of Procedure Debridement -Clinical Debridement Subcutaneous -Post Debridement Size (cm) - Length 3.0 -Post Debridement Size (cm) - Width 6.4 -Post Debridement Size (cm) - Depth 2.5 -Total Square Cm 19.20 -Wound/Ulcer Outcome Not Healed Not Healed -Ulcer Cleansing Rinsed/ Rinsed/ Irrigated with Irrigated with Saline Saline -Foul Odor after Cleansing No No -Bioengineered Tissue No No -Bleeding Controlled with Pressure Pressure -Offloading No No -Treatment Response Procedure Procedure Tolerated Well Tolerated Well Pain Scale: 0-10 Numeric Is Patient Pain Free? Yes Yes Wound debrided: #1 Right inferior gluteal/ischial area and vulval area. Laterality: Right Wound Grade/Stage: 3. Type of Debridement: Excisional debridement Anesthesia Used: 4% Lidocaine Solution Depth: Down to and including healthy tissue, in the subcutaneous layer Percentage of wound debrided: 100 Instrument Used: 5mm curette Tissue Removed: subcutaneous tissue. Severity: Fat Layer Exposed Amount of bleeding with debridement: Mild Bleeding Controlled with: Pressure Patient tolerated procedure well Assessment/Plan Assessment: 1. Complex nonhealing abscess ulcer right inferior gluteal/ischial area and vulval area with extension to perineum and inferior labia. 2. Hx of gastric bypass. 3. s/p surgical preparation right inferior gluteal/ischial area and vulval area with extension to perineum and inferior labia with incision and drainage and excisional debridement complex nonhealing abscess ulcer and partial vulvectomy including deep subcutaneous tissue (26 cm2). Plan: Continue Aquacel Silver dressing changes daily. Encourage showering with portable shower head after each bowel movement. Continue Levaquin for the MRSE. She is finishing the Flagyl. Prealbumin from 12/29/18 was 24.1. Encourage nutritional supplementation with protein to help the healing process. Renewed her Percocet for pain (40 tabs) and her Valium for spasm (30 tabs). Followup one week.
--- NOTE | 2019-01-09 17:39 | PN.PCM_ITS ---
Type of Wound Date of Service: 01/08/19 Chief Complaint: Nonhealing abscess ulcer right inferior gluteal/ischial area and vulval area with extension to perineum and inferior labia. History of Wound: Surgery 12/28/18 - Surgical preparation right inferior gluteal/ischial area and vulval area with extension to perineum and inferior labia with incision and drainage and excisional debridement complex nonhealing abscess ulcer and partial vulvectomy including deep subcutaneous tissue (26 cm2). Wound care - Aquacel Silver. Operative culture - MRSE. Perioperatively she was treated with Erythromycin, Bactrim DS, and Flagyl. MRSE was resistant to Erythromycin and Bactrim and they were stopped. She was started on Levaquin. She is finishing the Flagyl. Prealbumin from 12/29/18 was 24.1. Encouraged nutritional supplementation with protein to help the healing process. Today the patient denies fever. Her appetite is good. Progress of Wound: Recent surgery 12/28/18. - Physical Exam Vital Signs Temp Pulse Resp BP 99.1 F 82 18 121/97 H 01/08/19 09:53 01/08/19 09:53 01/08/19 09:53 01/08/19 09:53 Wound Measurements and Assessment WC - Nurse 1 - General Ulcer Measurement Start: 12/11/18 08:26 Freq: Status: Active Protocol: Activity Type Activity Date Activity User E-Sign Co-Sign Detail Recorded Client Recorded Date Recorded By Document 01/08/19 09:53 MW [id number] 01/08/19 10:06 MW 01/08/19 09:53 Wound Center Nurse 1 [Ulcer Assessment] 1. R buttock -Current Size (cm) - Length 3.3 -Current Size (cm) - Width 6.0 -Current Size (cm) - Depth 1.4 -Total Square Cm 19.80 -Date of Last Picture (Recall this 01/08/19 field) -Photo Taken Yes -Epithelialization None Present -Classification - Thickness Full Thickness with Exposed Support Structure -Exudate Amt Medium -Exudate Type Serosanguineous -Wound Margin Distinct, Outline Attached -Granulation Amt Large (67-100%) -Granulation Quality Red -Slough/Fibrin Yes -Necrosis Amt Small (1-33%) -Necrotic Tissue Type Adherent Slough -Structure Exposed Fat Layer Exposed -Texture (Farrah-wound Skin Appearance) Assessed -Moisture (Farrah-wound Skin Appearance Assessed ) -Color (Farrah-wound Skin Appearance) Assessed -Temperature (Farrah-wound Skin No Abnormality Appearance) (Pt Warm) -Tenderness on Palpation (Farrah-wound Yes Skin Appearance) -Ulcer Cleansing Rinsed/ Irrigated with Saline -Foul Odor after Cleansing No -Anesthetic Used 4% Lidocaine Solution - Nurse 2 - General Ulcer CM Notes Start: 12/11/18 08:26 Freq: Status: Active Protocol: Activity Type Activity Date Activity User E-Sign Co-Sign Detail Recorded Client Recorded Date Recorded By Document 01/08/19 10:35 [id number] 01/08/19 10:38 01/08/19 10:35 Wound Center Nurse 2 [Procedure/Treatment] -Time 10:37 -Correct Patient Yes -Correct Side, Site, Position Yes -Correct Procedure Yes -Procedure Performed Yes -Type of Procedure Debridement -Clinical Debridement Subcutaneous -Post Debridement Size (cm) - Length 3.0 -Post Debridement Size (cm) - Width 6.4 -Post Debridement Size (cm) - Depth 2.5 -Total Square Cm 19.20 -Wound/Ulcer Outcome Not Healed -Ulcer Cleansing Rinsed/ Irrigated with Saline -Foul Odor after Cleansing No -Bioengineered Tissue No -Bleeding Controlled with Pressure -Offloading No -Treatment Response Procedure Tolerated Well [See Physician Procedure note for Specifics] Pain Scale: 0-10 Numeric [Pain] -Is Patient Pain Free? Yes Debridement Note Post-Debridement Measurements/Treatment - Nurse 2 - General Ulcer CM Notes Start: 12/11/18 08:26 Freq: Status: Active Protocol: Activity Type Activity Date Activity User E-Sign Co-Sign Detail Recorded Client Recorded Date Recorded By Document 12/11/18 08:45 [id number] 12/11/18 08:49 Document 01/08/19 10:35 [id number] 01/08/19 10:38 12/11/18 01/08/19 08:45 10:35 Wound Center Nurse 2 1. R buttock -Time 10:37 -Correct Patient No Yes -Correct Side, Site, Position No Yes -Correct Procedure No Yes -Procedure Performed No Yes -Type of Procedure Debridement -Clinical Debridement Subcutaneous -Post Debridement Size (cm) - Length 3.0 -Post Debridement Size (cm) - Width 6.4 -Post Debridement Size (cm) - Depth 2.5 -Total Square Cm 19.20 -Wound/Ulcer Outcome Not Healed Not Healed -Ulcer Cleansing Rinsed/ Rinsed/ Irrigated with Irrigated with Saline Saline -Foul Odor after Cleansing No No -Bioengineered Tissue No No -Bleeding Controlled with Pressure Pressure -Offloading No No -Treatment Response Procedure Procedure Tolerated Well Tolerated Well Pain Scale: 0-10 Numeric Is Patient Pain Free? Yes Yes Wound debrided: #1 Right inferior gluteal/ischial area and vulval area. Laterality: Right Wound Grade/Stage: 3. Type of Debridement: Excisional debridement Anesthesia Used: 4% Lidocaine Solution Depth: Down to and including healthy tissue, in the subcutaneous layer Percentage of wound debrided: 100 Instrument Used: 5mm curette Tissue Removed: subcutaneous tissue. Severity: Fat Layer Exposed Amount of bleeding with debridement: Mild Bleeding Controlled with: Pressure Patient tolerated procedure well Assessment/Plan Assessment: 1. Complex nonhealing abscess ulcer right inferior gluteal/ischial area and vulval area with extension to perineum and inferior labia. 2. Hx of gastric bypass. 3. s/p surgical preparation right inferior gluteal/ischial area and vulval area with extension to perineum and inferior labia with incision and drainage and excisional debridement complex nonhealing abscess ulcer and partial vulvectomy including deep subcutaneous tissue (26 cm2). Plan: Continue Aquacel Silver dressing changes daily. Encourage showering with portable shower head after each bowel movement. Continue Levaquin for the MRSE. She is finishing the Flagyl. Prealbumin from 12/29/18 was 24.1. Encourage nutritional supplementation with protein to help the healing process. Renewed her Percocet for pain (40 tabs) and her Valium for spasm (30 tabs). Followup one week.
== END 2019-01-09 23:59 ==
LOC: WC 09:45
PROVIDERS: Family Provider Family Medicine; PCP Family Medicine; Referring Provider Surgery; Visit Provider Surgery
DX: L98.412 Non-pressure chronic ulcer of buttock with fat layer exposed (principal); Z98.84 Bariatric surgery status
CPT/HCPCS: 11042; 72193; 99212; Q9967; G0463

== ENCOUNTER 2019-02-06 15:00 | Outpatient (RCR) | payer MEDICARE, SELFPAY ==
[2019-01-10 01:30] VITALS: BP 121/97; PULSE 82; RESP 18; TEMP 37.3
[2019-01-15 09:42] VITALS: BP 123/83; PULSE 85; RESP 18; TEMP 36.2; BMI 29.2
--- NOTE | 2019-01-15 16:23 | PN.PCM_ITS ---
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 History of Wound: Issue with this ulcer started 03/24/18 when it started draining. She initially went to her PCP, Dr. Valiente who cultured it and placed her on antibiotics. She was sent to Dr. Mario 05/08/18 who took over care. She had had several I&D's in the office, wound cultures and antibiotics. She went to the OR 08/31/18 for I&D. Wound Cultures were Streptococcocus group C,Staphylococcus pseudintermediu and Anaerobic cocci and was treated with Levaquin and Flagyl. On 10/25/18 a wound culture was positive for Streptococcus group A and group C and Provetella Melaningogenica and placed on Cefdinir and Flagyl. On 11/03/18 OR for an I&D and Dr. Platt was present to rule out a fistula from the wound to either the vagina or rectum, wound cultures showed Streptococcus group C and Anaerobic cocci, placed on Cefdinir and flagyl. On 12/28/18 Dr. House took her to the OR for a surgical preparation right inferior gluteal/ischial area and vulval area with extension to perineaum and inferior labia with incision and drainage and excisional debridement complex nonhealing abscess ulcer and partial vulvectomy including deep subcutaneous tissue (26 cm2). Her wound cultures from surgery showed Staphylococcus epidermidis and she was placed on Erythromycin and Flagyl. She does have a history of gastric bypass. She states she is eating pleanty of protein. Denies any fever or poor appetite. Progress of Wound: Outer ulcer is healed but there is a pinhole at 9 o'clock. - Physical Exam Vital Signs Temp Pulse Resp BP 97.1 F L 85 18 123/83 H 01/15/19 09:42 01/15/19 09:42 01/15/19 09:42 01/15/19 09:42 General: Alert, Oriented x3, Cooperative HEENT: Atraumatic Oral: Moist Mucosa Lungs: Normal air movement Cardiovascular: Regular rate Extremities: No edema, Capillary Refill Less than 3 Seconds, Peripheral Pulses Normal Skin: Ulcer/ Wound - Right buttock ulcer Wound Measurements and Assessment - Nurse 1 - General Ulcer Measurement Start: 01/15/19 09:42 Freq: Status: Active Protocol: Activity Type Activity Date Activity User E-Sign Co-Sign Detail Recorded Client Recorded Date Recorded By Document 01/15/19 09:42 DL [id number] 01/15/19 09:50 DL 01/15/19 09:42 Wound Center Nurse 1 [Ulcer Assessment] 1. R buttock -Current Size (cm) - Length 5 -Current Size (cm) - Width 2.7 -Current Size (cm) - Depth 1.7 -Total Square Cm 13.5 -Photo Taken No -Undermining/Tunneling Starts (O' 9 clock) -Undermining/Tunneling Ends (O'clock) 3 -Maximum Distance (cm) 2 -Exudate Amt Medium -Exudate Type Serosanguineous -Wound Margin Distinct, Outline Attached -Granulation Amt Medium (34-66%) -Granulation Quality [place] Red -Necrosis Amt Medium (34-66%) -Necrotic Tissue Type Adherent Slough -Structure Exposed N/A -Texture (Farrah-wound Skin Appearance) Scarring -Moisture (Farrah-wound Skin Appearance No Abnormality ) -Color (Farrah-wound Skin Appearance) No Abnormality -Temperature (Farrah-wound Skin No Abnormality Appearance) (Pt Warm) -Ulcer Cleansing Wound Cleanser -Anesthetic Used 4% Lidocaine Solution - Nurse 2 - General Ulcer CM Notes Start: 01/15/19 09:42 Freq: Status: Active Protocol: Activity Type Activity Date Activity User E-Sign Co-Sign Detail Recorded Client Recorded Date Recorded By Document 01/15/19 10:33 ERMA [id number] 01/15/19 10:34 ERMA 01/15/19 10:33 Wound Center Nurse 2 [Procedure/Treatment] -Time 10:34 -Correct Patient Yes -Correct Side, Site, Position Yes -Correct Procedure Yes -Procedure Performed Yes -Type of Procedure Debridement -Clinical Debridement Subcutaneous -Post Debridement Size (cm) - Length 2.9 -Post Debridement Size (cm) - Width 5.5 -Post Debridement Size (cm) - Depth 1.8 -Total Square Cm 15.95 -Wound/Ulcer Outcome Not Healed -Ulcer Cleansing Rinsed/ Irrigated with Saline -Foul Odor after Cleansing No -Bioengineered Tissue No -Bleeding Controlled with Pressure -Offloading No -Treatment Response Procedure Tolerated Well [See Physician Procedure note for Specifics] Pain Scale: 0-10 Numeric [Pain] -Is Patient Pain Free? Yes Musculoskeletal: No Tenderness to Palpation of Joints or Extremities Neurological: Neuro grossly intact Psych/Mental Status: Normal Affect, Appropriate Debridement Note Post-Debridement Measurements/Treatment WC - Nurse 2 - General Ulcer CM Notes Start: 01/15/19 09:42 Freq: Status: Active Protocol: Activity Type Activity Date Activity User E-Sign Co-Sign Detail Recorded Client Recorded Date Recorded By Document 01/15/19 10:33 ERMA [id number] 01/15/19 10:34 ERMA 01/15/19 10:33 Wound Center Nurse 2 1. R buttock -Time 10:34 -Correct Patient Yes -Correct Side, Site, Position Yes -Correct Procedure Yes -Procedure Performed Yes -Type of Procedure Debridement -Clinical Debridement Subcutaneous -Post Debridement Size (cm) - Length 2.9 -Post Debridement Size (cm) - Width 5.5 -Post Debridement Size (cm) - Depth 1.8 -Total Square Cm 15.95 -Wound/Ulcer Outcome Not Healed -Ulcer Cleansing Rinsed/ Irrigated with Saline -Foul Odor after Cleansing No -Bioengineered Tissue No -Bleeding Controlled with Pressure -Offloading No -Treatment Response Procedure Tolerated Well Pain Scale: 0-10 Numeric Is Patient Pain Free? Yes Wound debrided: Right ulcer buttock Type of Debridement: Excisional debridement Anesthesia Used: 5% Lidocaine Gel Depth: in the subcutaneous layer Percentage of wound debrided: 100 Instrument Used: 7mm curette Tissue Removed: Subcutaneous tissue and slough Severity: Fat Layer Exposed Amount of bleeding with debridement: Mild Bleeding Controlled with: Pressure Patient tolerated procedure well Assessment/Plan Assessment: 1. Non-healing ulcer right inferior gluteal/ischial area near perineum. 2. Hx of gastric bypass. Plan: Patient's ulcer is stable. It seems to heal and then drainage is seen. This has been going on for over 6 months. On 12/28/18 She underwent a surgical preparation right inferior gluteal/ischial area and vulval area with extension to perineum and inferior labia with incision and drainage and excisional debridement complex nonhealing abscess ulcer and partial vulvectomy including deep subcutaneous tissue (26 cm2). Surgical wound cultures grew Staphylococcus epidermidis and she was placed on Erythromycin and Flagyl. Her as been doing daily aquacel silver dressing changes. He has has been doing a good job with the wound care. On 12/30/18 Prealbumin was 24.1. Encourage high protein diet and using protein supplement such as Karl on Ensure. Follow up in one week. Code Visit [id number]
[2019-01-22 14:47] VITALS: BP 132/81; PULSE 67; RESP 18; TEMP 36.2; BMI 29.2
--- NOTE | 2019-01-22 16:58 | PCM.WC.PN ---
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 History of Wound: Issue with this ulcer started 03/24/18 when it started draining. She initially went to her PCP, Dr. Valiente who cultured it and placed her on antibiotics. She was sent to Dr. Mario 05/08/18 who took over care. She had had several I&D's in the office, wound cultures and antibiotics. She went to the OR 08/31/18 for I&D. Wound Cultures were Streptococcocus group C,Staphylococcus pseudintermediu and Anaerobic cocci and was treated with Levaquin and Flagyl. On 10/25/18 a wound culture was positive for Streptococcus group A and group C and Provetella Melaningogenica and placed on Cefdinir and Flagyl. On 11/03/18 OR for an I&D and Dr. Platt was present to rule out a fistula from the wound to either the vagina or rectum, wound cultures showed Streptococcus group C and Anaerobic cocci, placed on Cefdinir and flagyl. On 12/28/18 Dr. House took her to the OR for a surgical preparation right inferior gluteal/ischial area and vulval area with extension to perineaum and inferior labia with incision and drainage and excisional debridement complex nonhealing abscess ulcer and partial vulvectomy including deep subcutaneous tissue (26 cm2). Her wound cultures from surgery showed Staphylococcus epidermidis and she was placed on Erythromycin and Flagyl. She does have a history of gastric bypass. She states she is eating pleanty of protein. Denies any fever or poor appetite. Progress of Wound: Improved. - Physical Exam Vital Signs Temp Pulse Resp BP 97.1 F L 67 18 132/81 H 01/22/19 14:47 01/22/19 14:47 01/22/19 14:47 01/22/19 14:47 General: Alert, Oriented x3, Cooperative HEENT: Atraumatic Oral: Moist Mucosa Lungs: Normal air movement Cardiovascular: Regular rate Extremities: No edema, Capillary Refill Less than 3 Seconds Skin: Ulcer/ Wound - Right buttock ulcer Wound Measurements and Assessment - Nurse 1 - General Ulcer Measurement Start: 01/15/19 09:42 Freq: Status: Active Protocol: Activity Type Activity Date Activity User E-Sign Co-Sign Detail Recorded Client Recorded Date Recorded By Document 01/22/19 14:47 [email or web address] [id number] 01/22/19 14:56 DL 01/22/19 14:47 Wound Center Nurse 1 [Ulcer Assessment] 1. R buttock -Current Size (cm) - Length 2 -Current Size (cm) - Width 4.2 -Current Size (cm) - Depth 1.1 -Total Square Cm 8.4 -Photo Taken No -Undermining/Tunneling Starts (O' 6 clock) -Undermining/Tunneling Ends (O'clock) 12 -Maximum Distance (cm) 1.8 -Exudate Amt Small -Exudate Type Serosanguineous -Wound Margin Distinct, Outline Attached -Granulation Amt Large (67-100%) -Granulation Quality [place] -Necrosis Amt Small (1-33%) -Necrotic Tissue Type Adherent Slough -Structure Exposed N/A -Texture (Farrah-wound Skin Appearance) Scarring -Moisture (Farrah-wound Skin Appearance No Abnormality ) -Color (Farrah-wound Skin Appearance) No Abnormality -Temperature (Farrah-wound Skin No Abnormality Appearance) (Pt Warm) -Tenderness on Palpation (Farrah-wound No Skin Appearance) -Ulcer Cleansing Rinsed/ Irrigated with Saline -Foul Odor after Cleansing No -Anesthetic Used 4% Lidocaine Solution - Nurse 2 - General Ulcer CM Notes Start: 01/15/19 09:42 Freq: Status: Active Protocol: Activity Type Activity Date Activity User E-Sign Co-Sign Detail Recorded Client Recorded Date Recorded By Document 01/22/19 15:59 ERMA [id number] 01/22/19 16:02 ERMA 01/22/19 15:59 Wound Center Nurse 2 [Procedure/Treatment] -Time 16:00 -Correct Patient Yes -Correct Side, Site, Position Yes -Correct Procedure Yes -Procedure Performed Yes -Type of Procedure Debridement -Clinical Debridement Subcutaneous -Post Debridement Size (cm) - Length 2.5 -Post Debridement Size (cm) - Width 4.5 -Post Debridement Size (cm) - Depth 1.6 -Total Square Cm 11.25 -Wound/Ulcer Outcome Not Healed -Ulcer Cleansing Rinsed/ Irrigated with Saline -Foul Odor after Cleansing No -Bioengineered Tissue No -Bleeding Controlled with Pressure -Offloading No -Treatment Response Procedure Tolerated Well [See Physician Procedure note for Specifics] Pain Scale: 0-10 Numeric [Pain] -Is Patient Pain Free? Yes Musculoskeletal: No Tenderness to Palpation of Joints or Extremities Neurological: Neuro grossly intact Debridement Note Post-Debridement Measurements/Treatment WC - Nurse 2 - General Ulcer CM Notes Start: 01/15/19 09:42 Freq: Status: Active Protocol: Activity Type Activity Date Activity User E-Sign Co-Sign Detail Recorded Client Recorded Date Recorded By Document 01/15/19 10:33 [id number] 01/15/19 10:34 Document 01/22/19 15:59 [id number] 01/22/19 16:02 01/15/19 01/22/19 10:33 15:59 Wound Center Nurse 2 1. R buttock -Time 10:34 16:00 -Correct Patient Yes Yes -Correct Side, Site, Position Yes Yes -Correct Procedure Yes Yes -Procedure Performed Yes Yes -Type of Procedure Debridement Debridement -Clinical Debridement Subcutaneous Subcutaneous -Post Debridement Size (cm) - Length 2.9 2.5 -Post Debridement Size (cm) - Width 5.5 4.5 -Post Debridement Size (cm) - Depth 1.8 1.6 -Total Square Cm 15.95 11.25 -Wound/Ulcer Outcome Not Healed Not Healed -Ulcer Cleansing Rinsed/ Rinsed/ Irrigated with Irrigated with Saline Saline -Foul Odor after Cleansing No No -Bioengineered Tissue No No -Bleeding Controlled with Pressure Pressure -Offloading No No -Treatment Response Procedure Procedure Tolerated Well Tolerated Well Pain Scale: 0-10 Numeric Is Patient Pain Free? Yes Yes Wound debrided: Right buttock Laterality: Right Type of Debridement: Excisional debridement Anesthesia Used: 5% Lidocaine Gel Depth: Down to and including healthy tissue, in the subcutaneous layer Percentage of wound debrided: 100 Instrument Used: 5mm curette Tissue Removed: Subcutaneous tissue and slough Severity: Limited To Skin Breakdown Amount of bleeding with debridement: Mild Bleeding Controlled with: Pressure Patient tolerated procedure well Assessment/Plan Active Problems (Last Updated 01/04/19 @ 14:39 by Noa Wallace) Abscess of buttock, right (Chronic) Non-healing ulcer of buttock with fat layer exposed (Chronic) nonhealing abscess ulcer right inferior gluteal/ischial area and vulval area with extension to perineum and inferior labia Assessment: 1. Non-healing ulcer right inferior gluteal/ischial area near perineum. 2. Hx of gastric bypass. Plan: Patient's ulcer is stable. It seems to heal and then drainage is seen. This has been going on for over 6 months. On 12/28/18 She underwent a surgical preparation right inferior gluteal/ischial area and vulval area with extension to perineum and inferior labia with incision and drainage and excisional debridement complex nonhealing abscess ulcer and partial vulvectomy including deep subcutaneous tissue (26 cm2). Surgical wound cultures grew Staphylococcus epidermidis and she was placed on Erythromycin and Flagyl. Her as been doing daily aquacel silver dressing changes. He has has been doing a good job with the wound care. On 12/30/18 Prealbumin was 24.1. Encourage high protein diet and using protein supplement such as Karl on Ensure. Percocet (#28) renewed. OARRS report checked. Follow up in one week. Code Visit [id number]
[2019-01-29 14:41] VITALS: BP 125/74; PULSE 73; RESP 18; TEMP 36.3; BMI 29.2
--- NOTE | 2019-01-29 16:24 | PCM.WC.PN ---
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 History of Wound: Issue with this ulcer started 03/24/18 when it started draining. She initially went to her PCP, Dr. Valiente who cultured it and placed her on antibiotics. She was sent to Dr. Mario 05/08/18 who took over care. She had had several I&D's in the office, wound cultures and antibiotics. She went to the OR 08/31/18 for I&D. Wound Cultures were Streptococcocus group C,Staphylococcus pseudintermediu and Anaerobic cocci and was treated with Levaquin and Flagyl. On 10/25/18 a wound culture was positive for Streptococcus group A and group C and Provetella Melaningogenica and placed on Cefdinir and Flagyl. On 11/03/18 OR for an I&D and Dr. Platt was present to rule out a fistula from the wound to either the vagina or rectum, wound cultures showed Streptococcus group C and Anaerobic cocci, placed on Cefdinir and flagyl. On 12/28/18 Dr. House took her to the OR for a surgical preparation right inferior gluteal/ischial area and vulval area with extension to perineaum and inferior labia with incision and drainage and excisional debridement complex nonhealing abscess ulcer and partial vulvectomy including deep subcutaneous tissue (26 cm2). Her wound cultures from surgery showed Staphylococcus epidermidis and she was placed on Erythromycin and Flagyl. She does have a history of gastric bypass. She states she is eating pleanty of protein. Her wound care continue to consist of aquacel silver daily dressing changes. Denies any fever or poor appetite. Progress of Wound: Improved. - Physical Exam Vital Signs Temp Pulse Resp BP 97.3 F L 73 18 125/74 H 01/29/19 14:41 01/29/19 14:41 01/29/19 14:41 01/29/19 14:41 General: Alert, Oriented x3, Cooperative HEENT: Atraumatic Oral: Moist Mucosa Lungs: Normal air movement Cardiovascular: Regular rate Extremities: No edema, Capillary Refill Less than 3 Seconds Skin: Ulcer/ Wound - Right buttocks Wound Measurements and Assessment WC - Nurse 1 - General Ulcer Measurement Start: 01/15/19 09:42 Freq: Status: Active Protocol: Activity Type Activity Date Activity User E-Sign Co-Sign Detail Recorded Client Recorded Date Recorded By Document 01/29/19 14:41 DL [id number] 01/29/19 14:46 DL 01/29/19 14:41 Wound Center Nurse 1 [Ulcer Assessment] 1. R buttock -Current Size (cm) - Length 1.8 -Current Size (cm) - Width 3.9 -Current Size (cm) - Depth 0.4 -Total Square Cm 7.02 -Photo Taken No -Undermining/Tunneling Starts (O' 7 clock) -Undermining/Tunneling Ends (O'clock) 4 -Maximum Distance (cm) 1.9 -Exudate Amt Small -Exudate Type Serosanguineous -Wound Margin Distinct, Outline Attached -Granulation Amt Medium (34-66%) -Granulation Quality [place] Red -Necrosis Amt Medium (34-66%) -Necrotic Tissue Type Adherent Slough -Structure Exposed N/A -Texture (Farrah-wound Skin Appearance) Scarring -Moisture (Farrah-wound Skin Appearance No Abnormality ) -Color (Farrah-wound Skin Appearance) No Abnormality -Temperature (Farrah-wound Skin No Abnormality Appearance) (Pt Warm) -Tenderness on Palpation (Farrah-wound No Skin Appearance) -Ulcer Cleansing Rinsed/ Irrigated with Saline -Foul Odor after Cleansing No -Anesthetic Used 4% Lidocaine Solution WC - Nurse 2 - General Ulcer CM Notes Start: 01/15/19 09:42 Freq: Status: Active Protocol: Activity Type Activity Date Activity User E-Sign Co-Sign Detail Recorded Client Recorded Date Recorded By Document 01/29/19 15:42 ERMA [id number] 01/29/19 15:45 ERMA 01/29/19 15:42 Wound Center Nurse 2 [Procedure/Treatment] -Time 15:43 -Correct Patient Yes -Correct Side, Site, Position Yes -Correct Procedure Yes -Procedure Performed Yes -Type of Procedure Debridement -Clinical Debridement Subcutaneous -Post Debridement Size (cm) - Length 1.8 -Post Debridement Size (cm) - Width 4 -Post Debridement Size (cm) - Depth 1.1 -Total Square Cm 7.2 -Wound/Ulcer Outcome Not Healed -Ulcer Cleansing Rinsed/ Irrigated with Saline -Foul Odor after Cleansing No -Bioengineered Tissue No -Bleeding Controlled with Pressure -Other 5-8:00-1.3cm 9 :00-2.5cm 10: 00-1.5cm undermining -Offloading No -Treatment Response Procedure Tolerated Well [See Physician Procedure note for Specifics] Pain Scale: 0-10 Numeric [Pain] -Is Patient Pain Free? Yes Musculoskeletal: No Tenderness to Palpation of Joints or Extremities Neurological: Neuro grossly intact Psych/Mental Status: Normal Affect, Appropriate Debridement Note Post-Debridement Measurements/Treatment WC - Nurse 2 - General Ulcer CM Notes Start: 01/15/19 09:42 Freq: Status: Active Protocol: Activity Type Activity Date Activity User E-Sign Co-Sign Detail Recorded Client Recorded Date Recorded By Document 01/15/19 10:33 [id number] 01/15/19 10:34 Document 01/22/19 15:59 [id number] 01/22/19 16:02 Document 01/29/19 15:42 [id number] 01/29/19 15:45 01/15/19 01/22/19 01/29/19 10:33 15:59 15:42 Wound Center Nurse 2 1. R buttock -Time 10:34 16:00 15:43 -Correct Patient Yes Yes Yes -Correct Side, Site, Position Yes Yes Yes -Correct Procedure Yes Yes Yes -Procedure Performed Yes Yes Yes -Type of Procedure Debridement Debridement Debridement -Clinical Debridement Subcutaneous Subcutaneous Subcutaneous -Post Debridement Size (cm) - Length 2.9 2.5 1.8 -Post Debridement Size (cm) - Width 5.5 4.5 4 -Post Debridement Size (cm) - Depth 1.8 1.6 1.1 -Total Square Cm 15.95 11.25 7.2 -Wound/Ulcer Outcome Not Healed Not Healed Not Healed -Ulcer Cleansing Rinsed/ Rinsed/ Rinsed/ Irrigated with Irrigated with Irrigated with Saline Saline Saline -Foul Odor after Cleansing No No No -Bioengineered Tissue No No No -Bleeding Controlled with Pressure Pressure Pressure -Other 5-8:00-1.3cm 9 :00-2.5cm 10: 00-1.5cm undermining -Offloading No No No -Treatment Response Procedure Procedure Procedure Tolerated Well Tolerated Well Tolerated Well Pain Scale: 0-10 Numeric Is Patient Pain Free? 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 Non-healing ulcer right inferior gluteal/ischial area near perineum. 2. Hx of gastric bypass. Plan: Patient's ulcer is stable. It seems to heal and then drainage is seen. This has been going on for over 6 months. On 12/28/18 She underwent a surgical preparation right inferior gluteal/ischial area and vulval area with extension to perineum and inferior labia with incision and drainage and excisional debridement complex nonhealing abscess ulcer and partial vulvectomy including deep subcutaneous tissue (26 cm2). Surgical wound cultures grew Staphylococcus epidermidis and she was placed on Erythromycin and Flagyl. Her as been doing daily aquacel silver dressing changes. He has has been doing a good job with the wound care. On 12/30/18 Prealbumin was 24.1. Encourage high protein diet and using protein supplement such as Karl on Ensure. Follow up in one week. Code Visit [id number]
[2019-02-06 15:20] VITALS: BP 117/74; PULSE 64; RESP 18; TEMP 36.2; BMI 29.2
--- NOTE | 2019-02-06 16:39 | PCM.WC.PN ---
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 History of Wound: Issue with this ulcer started 03/24/18 when it started draining. She initially went to her PCP, Dr. Valiente who cultured it and placed her on antibiotics. She was sent to Dr. Mario 05/08/18 who took over care. She had had several I&D's in the office, wound cultures and antibiotics. She went to the OR 08/31/18 for I&D. Wound Cultures were Streptococcocus group C,Staphylococcus pseudintermediu and Anaerobic cocci and was treated with Levaquin and Flagyl. On 10/25/18 a wound culture was positive for Streptococcus group A and group C and Provetella Melaningogenica and placed on Cefdinir and Flagyl. On 11/03/18 OR for an I&D and Dr. Platt was present to rule out a fistula from the wound to either the vagina or rectum, wound cultures showed Streptococcus group C and Anaerobic cocci, placed on Cefdinir and flagyl. On 12/28/18 Dr. House took her to the OR for a surgical preparation right inferior gluteal/ischial area and vulval area with extension to perineaum and inferior labia with incision and drainage and excisional debridement complex nonhealing abscess ulcer and partial vulvectomy including deep subcutaneous tissue (26 cm2). Her wound cultures from surgery showed Staphylococcus epidermidis and she was placed on Erythromycin and Flagyl. She does have a history of gastric bypass. She states she is eating pleanty of protein. Her wound care continue to consist of aquacel silver daily dressing changes. Denies any fever or poor appetite. Progress of Wound: Improved. - Physical Exam Vital Signs Temp Pulse Resp BP 97.1 F L 64 18 117/74 02/06/19 15:20 02/06/19 15:20 02/06/19 15:20 02/06/19 15:20 General: Alert, Oriented x3, Cooperative HEENT: Atraumatic Oral: Moist Mucosa Lungs: Normal air movement Cardiovascular: Regular rate Extremities: No edema, Capillary Refill Less than 3 Seconds Skin: Ulcer/ Wound - right buttock ulcer Wound Measurements and Assessment WC - Nurse 1 - General Ulcer Measurement Start: 01/15/19 09:42 Freq: Status: Active Protocol: Activity Type Activity Date Activity User E-Sign Co-Sign Detail Recorded Client Recorded Date Recorded By Document 02/06/19 15:20 AN [id number] 02/06/19 15:33 AN 02/06/19 15:20 Wound Center Nurse 1 [Ulcer Assessment] 1. R buttock -Combined with other wound No -Current Size (cm) - Length 1 -Current Size (cm) - Width 2.8 -Current Size (cm) - Depth 0.5 -Total Square Cm 2.8 -Undermining/Tunneling Yes -Undermining/Tunneling Starts (O' 8 clock) -Undermining/Tunneling Ends (O'clock) 9 -Maximum Distance (cm) 1.8 -Undermining/Tunneling Starts #2 (O' 10 clock) -Undermining/Tunneling Ends #2 (O' 2 clock) -Maximum Distance #2 (cm) 0.5 -Circular Undermining No -Classification - Thickness Full Thickness without Exposed Support Structure -Exudate Amt Medium -Exudate Type Serosanguineous -Wound Margin Distinct, Outline Attached -Granulation Amt Medium (34-66%) -Granulation Quality Pale [place] -Slough/Fibrin Yes -Necrosis Amt Medium (34-66%) -Necrotic Tissue Type Adherent Slough -Structure Exposed None/Limited to Skin Breakdown -Texture (Farrah-wound Skin Appearance) Assessed -Moisture (Farrah-wound Skin Appearance Assessed ) -Color (Farrah-wound Skin Appearance) Assessed -Temperature (Farrah-wound Skin No Abnormality Appearance) (Pt Warm) -Tenderness on Palpation (Farrah-wound Yes Skin Appearance) -Ulcer Cleansing Rinsed/ Irrigated with Saline -Foul Odor after Cleansing No -Anesthetic Used 4% Lidocaine Solution WC - Nurse 2 - General Ulcer CM Notes Start: 01/15/19 09:42 Freq: Status: Active Protocol: Activity Type Activity Date Activity User E-Sign Co-Sign Detail Recorded Client Recorded Date Recorded By Document 02/06/19 15:55 [id number] 02/06/19 16:00 02/06/19 15:55 Wound Center Nurse 2 [Procedure/Treatment] -Time 15:59 -Correct Patient Yes -Correct Side, Site, Position Yes -Correct Procedure Yes -Procedure Performed Yes -Type of Procedure Debridement -Clinical Debridement Subcutaneous -Post Debridement Size (cm) - Length 1.7 -Post Debridement Size (cm) - Width 3.4 -Post Debridement Size (cm) - Depth 0.7 -Total Square Cm 5.78 -Wound/Ulcer Outcome Not Healed -Ulcer Cleansing Rinsed/ Irrigated with Saline -Foul Odor after Cleansing No -Bioengineered Tissue No -Bleeding Controlled with Pressure -Other 9:00-2cm undermining -Offloading No -Treatment Response Procedure Tolerated Well [See Physician Procedure note for Specifics] Pain Scale: 0-10 Numeric [Pain] -Is Patient Pain Free? Yes Musculoskeletal: No Tenderness to Palpation of Joints or Extremities Neurological: Neuro grossly intact Psych/Mental Status: Normal Affect, Appropriate Debridement Note Post-Debridement Measurements/Treatment WC - Nurse 2 - General Ulcer CM Notes Start: 01/15/19 09:42 Freq: Status: Active Protocol: Activity Type Activity Date Activity User E-Sign Co-Sign Detail Recorded Client Recorded Date Recorded By Document 01/15/19 10:33 [id number] 01/15/19 10:34 Document 01/22/19 15:59 [id number] 01/22/19 16:02 Document 01/29/19 15:42 [id number] 01/29/19 15:45 Document 02/06/19 15:55 [id number] 02/06/19 16:00 01/15/19 01/22/19 01/29/19 10:33 15:59 15:42 Wound Center Nurse 2 1. R buttock -Time 10:34 16:00 15:43 -Correct Patient Yes Yes Yes -Correct Side, Site, Position Yes Yes Yes -Correct Procedure Yes Yes Yes -Procedure Performed Yes Yes Yes -Type of Procedure Debridement Debridement Debridement -Clinical Debridement Subcutaneous Subcutaneous Subcutaneous -Post Debridement Size (cm) - Length 2.9 2.5 1.8 -Post Debridement Size (cm) - Width 5.5 4.5 4 -Post Debridement Size (cm) - Depth 1.8 1.6 1.1 -Total Square Cm 15.95 11.25 7.2 -Wound/Ulcer Outcome Not Healed Not Healed Not Healed -Ulcer Cleansing Rinsed/ Rinsed/ Rinsed/ Irrigated with Irrigated with Irrigated with Saline Saline Saline -Foul Odor after Cleansing No No No -Bioengineered Tissue No No No -Bleeding Controlled with Pressure Pressure Pressure -Other 5-8:00-1.3cm 9 :00-2.5cm 10: 00-1.5cm undermining -Offloading No No No -Treatment Response Procedure Procedure Procedure Tolerated Well Tolerated Well Tolerated Well Pain Scale: 0-10 Numeric Is Patient Pain Free? Yes Yes Yes 02/06/19 15:55 Wound Center Nurse 2 1. R buttock -Time 15:59 -Correct Patient Yes -Correct Side, Site, Position Yes -Correct Procedure Yes -Procedure Performed Yes -Type of Procedure Debridement -Clinical Debridement Subcutaneous -Post Debridement Size (cm) - Length 1.7 -Post Debridement Size (cm) - Width 3.4 -Post Debridement Size (cm) - Depth 0.7 -Total Square Cm 5.78 -Wound/Ulcer Outcome Not Healed -Ulcer Cleansing Rinsed/ Irrigated with Saline -Foul Odor after Cleansing No -Bioengineered Tissue No -Bleeding Controlled with Pressure -Other 9:00-2cm undermining -Offloading No -Treatment Response Procedure Tolerated Well Pain Scale: 0-10 Numeric Is Patient Pain Free? 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 Non-healing ulcer right inferior gluteal/ischial area near perineum. 2. Hx of gastric bypass. Plan: Patient's ulcer is stable. It seems to heal and then drainage is seen. This has been going on for over 6 months. On 12/28/18 She underwent a surgical preparation right inferior gluteal/ischial area and vulval area with extension to perineum and inferior labia with incision and drainage and excisional debridement complex nonhealing abscess ulcer and partial vulvectomy including deep subcutaneous tissue (26 cm2). Surgical wound cultures grew Staphylococcus epidermidis and she was placed on Erythromycin and Flagyl. She continues Levaquin. Her as been doing daily aquacel silver dressing changes. He has has been doing a good job with the wound care. On 12/30/18 Prealbumin was 24.1. Encourage high protein diet and using protein supplement such as Karl on Ensure. She continues to have significant pain with sitting and walking. She is not able to take ibuprofen due to her previous gastric bypass. Prescribed Percocet for 7 days. OARRS report reviewed, no suspicious activity noted. Follow up in one week. Code Visit [id number]
--- NOTE | 2019-02-08 08:49 | PN.PCM_ITS ---
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 History of Wound: Issue with this ulcer started 03/24/18 when it started draining. She initially went to her PCP, Dr. Valiente who cultured it and placed her on antibiotics. She was sent to Dr. Mario 05/08/18 who took over care. She had had several I&D's in the office, wound cultures and antibiotics. She went to the OR 08/31/18 for I&D. Wound Cultures were Streptococcocus group C,Staphylococcus pseudintermediu and Anaerobic cocci and was treated with Levaquin and Flagyl. On 10/25/18 a wound culture was positive for Streptococcus group A and group C and Provetella Melaningogenica and placed on Cefdinir and Flagyl. On 11/03/18 OR for an I&D and Dr. Platt was present to rule out a fistula from the wound to either the vagina or rectum, wound cultures showed Streptococcus group C and Anaerobic cocci, placed on Cefdinir and flagyl. On 12/28/18 Dr. House took her to the OR for a surgical preparation right inferior gluteal/ischial area and vulval area with extension to perineaum and inferior labia with incision and drainage and excisional debridement complex nonhealing abscess ulcer and partial vulvectomy including deep subcutaneous tissue (26 cm2). Her wound cultures from surgery showed Staphylococcus epidermidis and she was placed on Erythromycin and Flagyl. She does have a history of gastric bypass. She states she is eating pleanty of protein. Her wound care continue to consist of aquacel silver daily dressing changes. Denies any fever or poor appetite. Progress of Wound: Improved. - Physical Exam Vital Signs Temp Pulse Resp BP 97.1 F L 64 18 117/74 02/06/19 15:20 02/06/19 15:20 02/06/19 15:20 02/06/19 15:20 General: Alert, Oriented x3, Cooperative HEENT: Atraumatic Oral: Moist Mucosa Lungs: Normal air movement Cardiovascular: Regular rate Extremities: No edema, Capillary Refill Less than 3 Seconds Skin: Ulcer/ Wound - right buttock ulcer Wound Measurements and Assessment WC - Nurse 1 - General Ulcer Measurement Start: 01/15/19 09:42 Freq: Status: Active Protocol: Activity Type Activity Date Activity User E-Sign Co-Sign Detail Recorded Client Recorded Date Recorded By Document 02/06/19 15:20 AN [id number] 02/06/19 15:33 AN 02/06/19 15:20 Wound Center Nurse 1 [Ulcer Assessment] 1. R buttock -Combined with other wound No -Current Size (cm) - Length 1 -Current Size (cm) - Width 2.8 -Current Size (cm) - Depth 0.5 -Total Square Cm 2.8 -Undermining/Tunneling Yes -Undermining/Tunneling Starts (O' 8 clock) -Undermining/Tunneling Ends (O'clock) 9 -Maximum Distance (cm) 1.8 -Undermining/Tunneling Starts #2 (O' 10 clock) -Undermining/Tunneling Ends #2 (O' 2 clock) -Maximum Distance #2 (cm) 0.5 -Circular Undermining No -Classification - Thickness Full Thickness without Exposed Support Structure -Exudate Amt Medium -Exudate Type Serosanguineous -Wound Margin Distinct, Outline Attached -Granulation Amt Medium (34-66%) -Granulation Quality Pale [place] -Slough/Fibrin Yes -Necrosis Amt Medium (34-66%) -Necrotic Tissue Type Adherent Slough -Structure Exposed None/Limited to Skin Breakdown -Texture (Farrah-wound Skin Appearance) Assessed -Moisture (Farrah-wound Skin Appearance Assessed ) -Color (Farrah-wound Skin Appearance) Assessed -Temperature (Farrah-wound Skin No Abnormality Appearance) (Pt Warm) -Tenderness on Palpation (Farrah-wound Yes Skin Appearance) -Ulcer Cleansing Rinsed/ Irrigated with Saline -Foul Odor after Cleansing No -Anesthetic Used 4% Lidocaine Solution WC - Nurse 2 - General Ulcer CM Notes Start: 01/15/19 09:42 Freq: Status: Active Protocol: Activity Type Activity Date Activity User E-Sign Co-Sign Detail Recorded Client Recorded Date Recorded By Document 02/06/19 15:55 [id number] 02/06/19 16:00 02/06/19 15:55 Wound Center Nurse 2 [Procedure/Treatment] -Time 15:59 -Correct Patient Yes -Correct Side, Site, Position Yes -Correct Procedure Yes -Procedure Performed Yes -Type of Procedure Debridement -Clinical Debridement Subcutaneous -Post Debridement Size (cm) - Length 1.7 -Post Debridement Size (cm) - Width 3.4 -Post Debridement Size (cm) - Depth 0.7 -Total Square Cm 5.78 -Wound/Ulcer Outcome Not Healed -Ulcer Cleansing Rinsed/ Irrigated with Saline -Foul Odor after Cleansing No -Bioengineered Tissue No -Bleeding Controlled with Pressure -Other 9:00-2cm undermining -Offloading No -Treatment Response Procedure Tolerated Well [See Physician Procedure note for Specifics] Pain Scale: 0-10 Numeric [Pain] -Is Patient Pain Free? Yes Musculoskeletal: No Tenderness to Palpation of Joints or Extremities Neurological: Neuro grossly intact Psych/Mental Status: Normal Affect, Appropriate Debridement Note Post-Debridement Measurements/Treatment WC - Nurse 2 - General Ulcer CM Notes Start: 01/15/19 09:42 Freq: Status: Active Protocol: Activity Type Activity Date Activity User E-Sign Co-Sign Detail Recorded Client Recorded Date Recorded By Document 01/15/19 10:33 [id number] 01/15/19 10:34 Document 01/22/19 15:59 [id number] 01/22/19 16:02 Document 01/29/19 15:42 [id number] 01/29/19 15:45 Document 02/06/19 15:55 [id number] 02/06/19 16:00 01/15/19 01/22/19 01/29/19 10:33 15:59 15:42 Wound Center Nurse 2 1. R buttock -Time 10:34 16:00 15:43 -Correct Patient Yes Yes Yes -Correct Side, Site, Position Yes Yes Yes -Correct Procedure Yes Yes Yes -Procedure Performed Yes Yes Yes -Type of Procedure Debridement Debridement Debridement -Clinical Debridement Subcutaneous Subcutaneous Subcutaneous -Post Debridement Size (cm) - Length 2.9 2.5 1.8 -Post Debridement Size (cm) - Width 5.5 4.5 4 -Post Debridement Size (cm) - Depth 1.8 1.6 1.1 -Total Square Cm 15.95 11.25 7.2 -Wound/Ulcer Outcome Not Healed Not Healed Not Healed -Ulcer Cleansing Rinsed/ Rinsed/ Rinsed/ Irrigated with Irrigated with Irrigated with Saline Saline Saline -Foul Odor after Cleansing No No No -Bioengineered Tissue No No No -Bleeding Controlled with Pressure Pressure Pressure -Other 5-8:00-1.3cm 9 :00-2.5cm 10: 00-1.5cm undermining -Offloading No No No -Treatment Response Procedure Procedure Procedure Tolerated Well Tolerated Well Tolerated Well Pain Scale: 0-10 Numeric Is Patient Pain Free? Yes Yes Yes 02/06/19 15:55 Wound Center Nurse 2 1. R buttock -Time 15:59 -Correct Patient Yes -Correct Side, Site, Position Yes -Correct Procedure Yes -Procedure Performed Yes -Type of Procedure Debridement -Clinical Debridement Subcutaneous -Post Debridement Size (cm) - Length 1.7 -Post Debridement Size (cm) - Width 3.4 -Post Debridement Size (cm) - Depth 0.7 -Total Square Cm 5.78 -Wound/Ulcer Outcome Not Healed -Ulcer Cleansing Rinsed/ Irrigated with Saline -Foul Odor after Cleansing No -Bioengineered Tissue No -Bleeding Controlled with Pressure -Other 9:00-2cm undermining -Offloading No -Treatment Response Procedure Tolerated Well Pain Scale: 0-10 Numeric Is Patient Pain Free? 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 Non-healing ulcer right inferior gluteal/ischial area near perineum. 2. Hx of gastric bypass. Plan: Patient's ulcer is stable. It seems to heal and then drainage is seen. This has been going on for over 6 months. On 12/28/18 She underwent a surgical preparation right inferior gluteal/ischial area and vulval area with extension to perineum and inferior labia with incision and drainage and excisional debridement complex nonhealing abscess ulcer and partial vulvectomy including deep subcutaneous tissue (26 cm2). Surgical wound cultures grew Staphylococcus epidermidis and she was placed on Erythromycin and Flagyl. She continues Levaquin. Her as been doing daily aquacel silver dressing changes. He has has been doing a good job with the wound care. On 12/30/18 Prealbumin was 24.1. Encourage high protein diet and using protein supplement such as Karl on Ensure. She continues to have significant pain with sitting and walking. She is not able to take ibuprofen due to her previous gastric bypass. Prescribed Percocet for 7 days. OARRS report reviewed, no suspicious activity noted. Follow up in one week. Code Visit [id number]
== END 2019-02-09 23:59 ==
LOC: WC 15:00
PROVIDERS: Family Provider Family Medicine; PCP Family Medicine; Referring Provider Surgery; Visit Provider Surgery
DX: L98.412 Non-pressure chronic ulcer of buttock with fat layer exposed (principal); L02.31 Cutaneous abscess of buttock; B95.4 Other streptococcus as the cause of diseases classified elsewhere; Z98.84 Bariatric surgery status
CPT/HCPCS: 11042

== ENCOUNTER 2019-03-05 10:00 | Outpatient (RCR) | payer MEDICARE, SELFPAY ==
[2019-02-10 00:58] VITALS: BP 117/74; PULSE 64; RESP 18; TEMP 36.2
[2019-02-13 14:05] VITALS: BP 117/74; PULSE 61; RESP 18; TEMP 36.9; BMI 29.2
--- NOTE | 2019-02-13 17:14 | PCM.WC.PN ---
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 History of Wound: Issue with this ulcer started 03/24/18 when it started draining. She initially went to her PCP, Dr. Valiente who cultured it and placed her on antibiotics. She was sent to Dr. Mario 05/08/18 who took over care. She had had several I&D's in the office, wound cultures and antibiotics. She went to the OR 08/31/18 for I&D. Wound Cultures were Streptococcocus group C,Staphylococcus pseudintermediu and Anaerobic cocci and was treated with Levaquin and Flagyl. On 10/25/18 a wound culture was positive for Streptococcus group A and group C and Provetella Melaningogenica and placed on Cefdinir and Flagyl. On 11/03/18 OR for an I&D and Dr. Platt was present to rule out a fistula from the wound to either the vagina or rectum, wound cultures showed Streptococcus group C and Anaerobic cocci, placed on Cefdinir and flagyl. On 12/28/18 Dr. House took her to the OR for a surgical preparation right inferior gluteal/ischial area and vulval area with extension to perineaum and inferior labia with incision and drainage and excisional debridement complex nonhealing abscess ulcer and partial vulvectomy including deep subcutaneous tissue (26 cm2). Her wound cultures from surgery showed Staphylococcus epidermidis and she was placed on Erythromycin and Flagyl. She does have a history of gastric bypass. She states she is eating pleanty of protein. Her wound care continue to consist of aquacel silver daily dressing changes. Denies any fever or poor appetite. Progress of Wound: Improved. - Physical Exam Vital Signs Temp Pulse Resp BP 98.5 F 61 18 117/74 02/13/19 14:05 02/13/19 14:05 02/13/19 14:05 02/13/19 14:05 General: Alert, Oriented x3, Cooperative HEENT: Atraumatic Oral: Moist Mucosa Lungs: Normal air movement Cardiovascular: Regular rate Extremities: No edema, Capillary Refill Less than 3 Seconds Skin: Ulcer/ Wound - Right buttocks/vulva area Wound Measurements and Assessment WC - Nurse 1 - General Ulcer Measurement Start: 02/13/19 14:05 Freq: Status: Active Protocol: Activity Type Activity Date Activity User E-Sign Co-Sign Detail Recorded Client Recorded Date Recorded By Document 02/13/19 14:05 [email or web address] [id number] 02/13/19 14:10 DL 02/13/19 14:05 Wound Center Nurse 1 [Ulcer Assessment] 1. R buttock -Current Size (cm) - Length 1.3 -Current Size (cm) - Width 2.5 -Current Size (cm) - Depth 0.5 -Total Square Cm 3.25 -Photo Taken No -Undermining/Tunneling Starts (O' 7 clock) -Undermining/Tunneling Ends (O'clock) 10 -Maximum Distance (cm) 1.3 -Circular Undermining No -Exudate Amt Small -Exudate Type Serosanguineous -Wound Margin Thickened & Rolled Under -Granulation Amt Large (67-100%) -Granulation Quality Red -Necrosis Amt Small (1-33%) -Necrotic Tissue Type Adherent Slough -Structure Exposed N/A -Texture (Farrah-wound Skin Appearance) Scarring -Moisture (Farrah-wound Skin Appearance No Abnormality ) -Color (Farrah-wound Skin Appearance) No Abnormality -Temperature (Farrah-wound Skin No Abnormality Appearance) (Pt Warm) -Tenderness on Palpation (Farrah-wound No Skin Appearance) -Ulcer Cleansing Rinsed/ Irrigated with Saline -Foul Odor after Cleansing No -Anesthetic Used 4% Lidocaine Solution - Nurse 2 - General Ulcer CM Notes Start: 02/13/19 14:05 Freq: Status: Active Protocol: Activity Type Activity Date Activity User E-Sign Co-Sign Detail Recorded Client Recorded Date Recorded By Document 02/13/19 15:04 [id number] 02/13/19 15:07 02/13/19 15:04 Wound Center Nurse 2 [Procedure/Treatment] -Time 15:05 -Correct Patient Yes -Correct Side, Site, Position Yes -Correct Procedure Yes -Procedure Performed Yes -Type of Procedure Debridement -Clinical Debridement Subcutaneous -Post Debridement Size (cm) - Length 3 -Post Debridement Size (cm) - Width 1.7 -Post Debridement Size (cm) - Depth 0.6 -Total Square Cm 5.1 -Wound/Ulcer Outcome Not Healed -Ulcer Cleansing Rinsed/ Irrigated with Saline -Foul Odor after Cleansing No -Bioengineered Tissue No -Bleeding Controlled with Pressure -Offloading No -Treatment Response Procedure Tolerated Well [See Physician Procedure note for Specifics] Pain Scale: 0-10 Numeric [Pain] -Is Patient Pain Free? Yes Musculoskeletal: No Tenderness to Palpation of Joints or Extremities Neurological: Neuro grossly intact Psych/Mental Status: Normal Affect, Appropriate Debridement Note Post-Debridement Measurements/Treatment WC - Nurse 2 - General Ulcer CM Notes Start: 02/13/19 14:05 Freq: Status: Active Protocol: Activity Type Activity Date Activity User E-Sign Co-Sign Detail Recorded Client Recorded Date Recorded By Document 02/13/19 15:04 [id number] 02/13/19 15:07 02/13/19 15:04 Wound Center Nurse 2 1. R buttock -Time 15:05 -Correct Patient Yes -Correct Side, Site, Position Yes -Correct Procedure Yes -Procedure Performed Yes -Type of Procedure Debridement -Clinical Debridement Subcutaneous -Post Debridement Size (cm) - Length 3 -Post Debridement Size (cm) - Width 1.7 -Post Debridement Size (cm) - Depth 0.6 -Total Square Cm 5.1 -Wound/Ulcer Outcome Not Healed -Ulcer Cleansing Rinsed/ Irrigated with Saline -Foul Odor after Cleansing No -Bioengineered Tissue No -Bleeding Controlled with Pressure -Offloading No -Treatment Response Procedure Tolerated Well Pain Scale: 0-10 Numeric Is Patient Pain Free? Yes Wound debrided: Right buttocks/vulva area Laterality: Right Type of Debridement: Excisional debridement Anesthesia Used: 4% Lidocaine Solution Depth: Down to and including healthy tissue, in the subcutaneous layer Percentage of wound debrided: 100 Instrument Used: 5mm curette Tissue Removed: Subcutaneous tissue and slough Severity: Fat Layer Exposed Amount of bleeding with debridement: Mild Bleeding Controlled with: Pressure Patient tolerated procedure well Assessment/Plan Assessment: 1. Non-healing ulcer right inferior gluteal/ischial area near perineum. 2. Hx of gastric bypass. Plan: Patient's ulcer is stable. It seems to heal and then drainage is seen. This has been going on for over 6 months. On 12/28/18 She underwent a surgical preparation right inferior gluteal/ischial area and vulval area with extension to perineum and inferior labia with incision and drainage and excisional debridement complex nonhealing abscess ulcer and partial vulvectomy including deep subcutaneous tissue (26 cm2). Surgical wound cultures grew Staphylococcus epidermidis and she was placed on Erythromycin and Flagyl. She has finished her Levaquin. Her as been doing daily aquacel silver dressing changes. We will switch her to Eugenie daily. He has has been doing a good job with the wound care. On 12/30/18 Prealbumin was 24.1. Encourage high protein diet and using protein supplement such as Karl on Ensure. She continues to have significant pain with sitting and walking. She is not able to take ibuprofen due to her previous gastric bypass. Prescribed Percocet for 7 days. [facility] report reviewed, no suspicious activity noted. Follow up in one week. Code Visit [id number]
[2019-02-19 11:28] VITALS: BP 117/70; PULSE 73; RESP 18; TEMP 36.2; BMI 29.2
--- NOTE | 2019-02-19 22:28 | PCM.WC.PN ---
Type of Wound Date of Service: 02/19/19 Chief Complaint: Nonhealing abscess ulcer right inferior gluteal/ischial area and vulval area with extension to perineum and inferior labia. History of Wound: Surgery 12/28/18 - Surgical preparation right inferior gluteal/ischial area and vulval area with extension to perineum and inferior labia with incision and drainage and excisional debridement complex nonhealing abscess ulcer and partial vulvectomy including deep subcutaneous tissue (26 cm2). Wound care - Aquacel Silver. Operative culture - MRSE. Perioperatively she was treated with Erythromycin, Bactrim DS, and Flagyl. MRSE was resistant to Erythromycin and Bactrim and they were stopped. She was started on Levaquin and finished them. She also finished the Flagyl. Prealbumin from 12/29/18 was 24.1. Encouraged nutritional supplementation with protein to help the healing process. Today the patient denies fever. Her appetite is good. Progress of Wound: Improved. - Physical Exam Vital Signs Temp Pulse Resp BP 97.1 F L 73 18 117/70 02/19/19 11:28 02/19/19 11:28 02/19/19 11:28 02/19/19 11:28 Wound Measurements and Assessment WC - Nurse 1 - General Ulcer Measurement Start: 02/13/19 14:05 Freq: Status: Active Protocol: Activity Type Activity Date Activity User E-Sign Co-Sign Detail Recorded Client Recorded Date Recorded By Document 02/19/19 11:28 DL [id number] 02/19/19 11:33 DL 02/19/19 11:28 Wound Center Nurse 1 [Ulcer Assessment] 1. R buttock -Current Size (cm) - Length 2.4 -Current Size (cm) - Width 1.1 -Current Size (cm) - Depth 0.2 -Total Square Cm 2.64 -Photo Taken No -Undermining/Tunneling Starts (O' 7 clock) -Undermining/Tunneling Ends (O'clock) 10 -Maximum Distance (cm) 1.6 -Exudate Amt Small -Exudate Type Serosanguineous -Wound Margin Thickened & Rolled Under -Granulation Amt Large (67-100%) -Granulation Quality Red -Necrosis Amt Small (1-33%) -Necrotic Tissue Type Adherent Slough -Structure Exposed N/A -Texture (Farrah-wound Skin Appearance) Scarring -Moisture (Farrah-wound Skin Appearance No Abnormality ) -Color (Farrah-wound Skin Appearance) No Abnormality -Temperature (Farrah-wound Skin No Abnormality Appearance) (Pt Warm) -Tenderness on Palpation (Farrah-wound No Skin Appearance) -Ulcer Cleansing Rinsed/ Irrigated with Saline -Foul Odor after Cleansing No -Anesthetic Used 4% Lidocaine Solution - Nurse 2 - General Ulcer CM Notes Start: 02/13/19 14:05 Freq: Status: Active Protocol: Activity Type Activity Date Activity User E-Sign Co-Sign Detail Recorded Client Recorded Date Recorded By Document 02/19/19 12:10 [id number] 02/19/19 12:10 02/19/19 12:10 Wound Center Nurse 2 [Procedure/Treatment] -Time 12:10 -Correct Patient Yes -Correct Side, Site, Position Yes -Correct Procedure Yes -Procedure Performed Yes -Type of Procedure Debridement -Clinical Debridement Subcutaneous -Post Debridement Size (cm) - Length 1.4 -Post Debridement Size (cm) - Width 2.5 -Post Debridement Size (cm) - Depth 0.8 -Total Square Cm 3.50 -Wound/Ulcer Outcome Not Healed -Ulcer Cleansing Rinsed/ Irrigated with Saline -Foul Odor after Cleansing No -Bioengineered Tissue No -Bleeding Controlled with Pressure -Offloading No -Treatment Response Procedure Tolerated Well [See Physician Procedure note for Specifics] Pain Scale: 0-10 Numeric [Pain] -Is Patient Pain Free? Yes Debridement Note Post-Debridement Measurements/Treatment - Nurse 2 - General Ulcer CM Notes Start: 02/13/19 14:05 Freq: Status: Active Protocol: Activity Type Activity Date Activity User E-Sign Co-Sign Detail Recorded Client Recorded Date Recorded By Document 02/13/19 15:04 [id number] 02/13/19 15:07 Document 02/19/19 12:10 [id number] 02/19/19 12:10 02/13/19 02/19/19 15:04 12:10 Wound Center Nurse 2 1. R buttock -Time 15:05 12:10 -Correct Patient Yes Yes -Correct Side, Site, Position Yes Yes -Correct Procedure Yes Yes -Procedure Performed Yes Yes -Type of Procedure Debridement Debridement -Clinical Debridement Subcutaneous Subcutaneous -Post Debridement Size (cm) - Length 3 1.4 -Post Debridement Size (cm) - Width 1.7 2.5 -Post Debridement Size (cm) - Depth 0.6 0.8 -Total Square Cm 5.1 3.50 -Wound/Ulcer Outcome Not Healed Not Healed -Ulcer Cleansing Rinsed/ Rinsed/ Irrigated with Irrigated with Saline Saline -Foul Odor after Cleansing No No -Bioengineered Tissue No No -Bleeding Controlled with Pressure Pressure -Offloading No No -Treatment Response Procedure Procedure Tolerated Well Tolerated Well Pain Scale: 0-10 Numeric Is Patient Pain Free? Yes Yes Wound debrided: #1 Right inferior gluteal/ischial area and vulval area. Laterality: Right Wound Grade/Stage: 3. Type of Debridement: Excisional debridement Anesthesia Used: 4% Lidocaine Solution Depth: Down to and including healthy tissue, in the subcutaneous layer Percentage of wound debrided: 100 Instrument Used: 3mm curette Tissue Removed: subcutaneous tissue. Severity: Fat Layer Exposed Amount of bleeding with debridement: Mild Bleeding Controlled with: Pressure Patient tolerated procedure well Assessment/Plan Assessment: 1. Complex nonhealing abscess ulcer right inferior gluteal/ischial area and vulval area with extension to perineum and inferior labia. 2. Hx of gastric bypass. 3. s/p surgical preparation right inferior gluteal/ischial area and vulval area with extension to perineum and inferior labia with incision and drainage and excisional debridement complex nonhealing abscess ulcer and partial vulvectomy including deep subcutaneous tissue (26 cm2). Plan: Continue Aquacel Silver dressing changes daily until Eugenie becomes available. Encourage showering with portable shower head after each bowel movement. She has finished the Levaquin for the MRSE. She also finished the Flagyl. Prealbumin from 12/29/18 was 24.1. Encourage nutritional supplement ation with protein to help the healing process. Followup one week.
[2019-02-26 08:59] VITALS: BP 126/76; PULSE 70; RESP 16; TEMP 36.9; BMI 29.2
--- NOTE | 2019-02-26 09:45 | PN.PCM_ITS ---
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 History of Wound: Surgery 12/28/18 - Surgical preparation right inferior gluteal/ischial area and vulval area with extension to perineum and inferior labia with incision and drainage and excisional debridement complex nonhealing abscess ulcer and partial vulvectomy including deep subcutaneous tissue (26 cm2). Wound care - Aquacel Silver. Operative culture - MRSE. Perioperatively she was treated with Erythromycin, Bactrim DS, and Flagyl. MRSE was resistant to Erythromycin and Bactrim and they were stopped. She was started on Levaquin and finished them. She also finished the Flagyl. Prealbumin from 12/29/18 was 24.1. Encouraged nutritional supplementation with protein to help the healing process. Today the patient denies fever. Her appetite is good. Progress of Wound: Improved. - Physical Exam Vital Signs Temp Pulse Resp BP 98.5 F 70 16 126/76 H 02/26/19 08:59 02/26/19 08:59 02/26/19 08:59 02/26/19 08:59 General: Alert, Oriented x3, Cooperative HEENT: Atraumatic Lungs: Normal air movement Cardiovascular: Regular rate Extremities: No edema, Capillary Refill Less than 3 Seconds, Peripheral Pulses Normal Skin: Ulcer/ Wound - Right buttock ulcer Wound Measurements and Assessment WC - Nurse 1 - General Ulcer Measurement Start: 02/13/19 14:05 Freq: Status: Active Protocol: Activity Type Activity Date Activity User E-Sign Co-Sign Detail Recorded Client Recorded Date Recorded By Document 02/26/19 08:59 [facility] [id number] 02/26/19 09:05 [facility] 02/26/19 08:59 Wound Center Nurse 1 [Ulcer Assessment] 1. R buttock -Combined with other wound No -Current Size (cm) - Length 2 -Current Size (cm) - Width 0.9 -Current Size (cm) - Depth 0.4 -Total Square Cm 1.8 -Photo Taken No -Epithelialization None Present -Tunneling No -Undermining/Tunneling No -Circular Undermining No -Exudate Amt Small -Exudate Type Serous -Wound Margin Distinct, Outline Attached -Granulation Amt Large (67-100%) -Granulation Quality Red -Slough/Fibrin No -Necrosis Amt None Present (0 %) -Texture (Farrah-wound Skin Appearance) Assessed Scarring -Moisture (Farrah-wound Skin Appearance Assessed ) -Color (Farrah-wound Skin Appearance) Assessed -Temperature (Farrah-wound Skin No Abnormality Appearance) (Pt Warm) -Tenderness on Palpation (Farrah-wound No Skin Appearance) -Ulcer Cleansing Rinsed/ Irrigated with Saline -Foul Odor after Cleansing No -Anesthetic Used 4% Lidocaine Solution WC - Nurse 2 - General Ulcer CM Notes Start: 02/13/19 14:05 Freq: Status: Active Protocol: Activity Type Activity Date Activity User E-Sign Co-Sign Detail Recorded Client Recorded Date Recorded By Document 02/26/19 09:31 [id number] 02/26/19 09:33 02/26/19 09:31 Wound Center Nurse 2 [Procedure/Treatment] -Time 09:32 -Correct Patient Yes -Correct Side, Site, Position Yes -Correct Procedure Yes -Procedure Performed Yes -Type of Procedure Debridement -Clinical Debridement Subcutaneous -Post Debridement Size (cm) - Length 1.0 -Post Debridement Size (cm) - Width 2.3 -Post Debridement Size (cm) - Depth 0.7 -Total Square Cm 2.30 -Wound/Ulcer Outcome Not Healed -Ulcer Cleansing Rinsed/ Irrigated with Saline -Foul Odor after Cleansing No -Bleeding Controlled with Pressure -Other 9:00-0.7cm tunnel -Offloading No -Treatment Response Procedure Tolerated Well [See Physician Procedure note for Specifics] Pain Scale: 0-10 Numeric [Pain] -Is Patient Pain Free? Yes Musculoskeletal: No Tenderness to Palpation of Joints or Extremities Neurological: Neuro grossly intact Psych/Mental Status: Normal Affect, Appropriate Debridement Note Post-Debridement Measurements/Treatment WC - Nurse 2 - General Ulcer CM Notes Start: 02/13/19 14:05 Freq: Status: Active Protocol: Activity Type Activity Date Activity User E-Sign Co-Sign Detail Recorded Client Recorded Date Recorded By Document 02/13/19 15:04 [id number] 02/13/19 15:07 Document 02/19/19 12:10 [id number] 02/19/19 12:10 Document 02/26/19 09:31 [id number] 02/26/19 09:33 02/13/19 02/19/19 02/26/19 15:04 12:10 09:31 Wound Center Nurse 2 1. R buttock -Time 15:05 12:10 09:32 -Correct Patient Yes Yes Yes -Correct Side, Site, Position Yes Yes Yes -Correct Procedure Yes Yes Yes -Procedure Performed Yes Yes Yes -Type of Procedure Debridement Debridement Debridement -Clinical Debridement Subcutaneous Subcutaneous Subcutaneous -Post Debridement Size (cm) - Length 3 1.4 1.0 -Post Debridement Size (cm) - Width 1.7 2.5 2.3 -Post Debridement Size (cm) - Depth 0.6 0.8 0.7 -Total Square Cm 5.1 3.50 2.30 -Wound/Ulcer Outcome Not Healed Not Healed Not Healed -Ulcer Cleansing Rinsed/ Rinsed/ Rinsed/ Irrigated with Irrigated with Irrigated with Saline Saline Saline -Foul Odor after Cleansing No No No -Bioengineered Tissue No No -Bleeding Controlled with Pressure Pressure Pressure -Other 9:00-0.7cm tunnel -Offloading No No No -Treatment Response Procedure Procedure Procedure Tolerated Well Tolerated Well Tolerated Well Pain Scale: 0-10 Numeric Is Patient Pain Free? Yes Yes Yes Wound debrided: Right buttock ulcer Type of Debridement: Excisional debridement Anesthesia Used: 4% Lidocaine Solution Depth: Down to and including healthy tissue, in the subcutaneous layer Percentage of wound debrided: 100 Instrument Used: 3mm curette Tissue Removed: Cutaneous tissue and slough Severity: Fat Layer Exposed Amount of bleeding with debridement: Mild Bleeding Controlled with: Pressure Patient tolerated procedure well Assessment/Plan Assessment: 1. Complex nonhealing abscess ulcer right inferior gluteal/ischial area and vulval area with extension to perineum and inferior labia. 2. Hx of gastric bypass. 3. s/p surgical preparation right inferior gluteal/ischial area and vulval area with extension to perineum and inferior labia with incision and drainage and excisional debridement complex nonhealing abscess ulcer and partial vulvectomy including deep subcutaneous tissue (26 cm2). Plan: Continue Eugenie dressing changes daily. Encourage showering with portable shower head after each bowel movement. She has finished the Levaquin for the MRSE. She also finished the Flagyl. Prealbumin from 12/29/18 was 24.1. Encourage nutritional supplement ation with protein to help the healing proces s. Followup one week with Dr. House. Code Visit [id number]
[2019-03-05 10:12] VITALS: BP 136/92; PULSE 72; RESP 16; TEMP 36; BMI 29.2
--- NOTE | 2019-03-05 23:23 | PCM.WC.PN ---
Type of Wound Date of Service: 03/05/19 Chief Complaint: Nonhealing abscess ulcer right inferior gluteal/ischial area and vulval area with extension to perineum and inferior labia. History of Wound: Surgery 12/28/18 - Surgical preparation right inferior gluteal/ischial area and vulval area with extension to perineum and inferior labia with incision and drainage and excisional debridement complex nonhealing abscess ulcer and partial vulvectomy including deep subcutaneous tissue (26 cm2). Wound care - Eugenie. Operative culture - MRSE. Perioperatively she was treated with Erythromycin, Bactrim DS, and Flagyl. MRSE was resistant to Erythromycin and Bactrim and they were stopped. She was started on Levaquin and finished them. She also finished the Flagyl. Prealbumin from 12/29/18 was 24.1. Encouraged nutritional supplementation with protein to help the healing process. Today the patient denies fever. Her appetite is good. Progress of Wound: Improved. - Physical Exam Vital Signs Temp Pulse Resp BP 96.8 F L 72 16 136/92 H 03/05/19 10:12 03/05/19 10:12 03/05/19 10:12 03/05/19 10:12 Wound Measurements and Assessment WC - Nurse 1 - General Ulcer Measurement Start: 02/13/19 14:05 Freq: Status: Active Protocol: Activity Type Activity Date Activity User E-Sign Co-Sign Detail Recorded Client Recorded Date Recorded By Document 03/05/19 10:12 MW [id number] 03/05/19 10:18 MW 03/05/19 10:12 Wound Center Nurse 1 [Ulcer Assessment] 1. R buttock -Combined with other wound No -Current Size (cm) - Length 0.6 -Current Size (cm) - Width 1.5 -Current Size (cm) - Depth 0.2 -Total Square Cm 0.90 -Photo Taken No -Epithelialization Medium 34-66% -Tunneling No -Undermining/Tunneling No -Circular Undermining No -Exudate Amt Small -Exudate Type Serous -Wound Margin Flat & Intact -Granulation Amt Medium (34-66%) -Granulation Quality [place] -Slough/Fibrin Yes -Necrosis Amt Small (1-33%) -Necrotic Tissue Type Adherent Slough -Structure Exposed N/A -Texture (Farrah-wound Skin Appearance) Assessed, Scarring -Moisture (Farrah-wound Skin Appearance No Abnormality, ) Assessed -Color (Farrah-wound Skin Appearance) No Abnormality, Assessed -Temperature (Farrah-wound Skin No Abnormality Appearance) (Pt Warm) -Tenderness on Palpation (Farrah-wound No Skin Appearance) -Ulcer Cleansing Rinsed/ Irrigated with Saline -Foul Odor after Cleansing No -Anesthetic Used 5% Lidocaine Gel [Edema Assessment] -Lower Limb Edema Present No WC - Nurse 2 - General Ulcer CM Notes Start: 02/13/19 14:05 Freq: Status: Active Protocol: Activity Type Activity Date Activity User E-Sign Co-Sign Detail Recorded Client Recorded Date Recorded By Document 03/05/19 11:14 [id number] 03/05/19 11:15 03/05/19 11:14 Wound Center Nurse 2 [Procedure/Treatment] 1. R buttock -Time 11:14 -Correct Patient Yes -Correct Side, Site, Position Yes -Correct Procedure Yes -Procedure Performed Yes -Type of Procedure Debridement -Clinical Debridement Subcutaneous -Post Debridement Size (cm) - Length 0.7 -Post Debridement Size (cm) - Width 1.5 -Post Debridement Size (cm) - Depth 0.2 -Total Square Cm 1.05 -Wound/Ulcer Outcome Not Healed -Ulcer Cleansing Rinsed/ Irrigated with Saline -Foul Odor after Cleansing No -Bioengineered Tissue No -Bleeding Controlled with Pressure -Offloading No -Treatment Response Procedure Tolerated Well [See Physician Procedure note for Specifics] Pain Scale: 0-10 Numeric [Pain] -Is Patient Pain Free? Yes Debridement Note Post-Debridement Measurements/Treatment WC - Nurse 2 - General Ulcer CM Notes Start: 02/13/19 14:05 Freq: Status: Active Protocol: Activity Type Activity Date Activity User E-Sign Co-Sign Detail Recorded Client Recorded Date Recorded By Document 02/13/19 15:04 [id number] 02/13/19 15:07 Document 02/19/19 12:10 [id number] 02/19/19 12:10 Document 02/26/19 09:31 [id number] 02/26/19 09:33 Document 03/05/19 11:14 [id number] 03/05/19 11:15 02/13/19 02/19/19 02/26/19 15:04 12:10 09:31 Wound Center Nurse 2 1. R buttock -Time 15:05 12:10 09:32 -Correct Patient Yes Yes Yes -Correct Side, Site, Position Yes Yes Yes -Correct Procedure Yes Yes Yes -Procedure Performed Yes Yes Yes -Type of Procedure Debridement Debridement Debridement -Clinical Debridement Subcutaneous Subcutaneous Subcutaneous -Post Debridement Size (cm) - Length 3 1.4 1.0 -Post Debridement Size (cm) - Width 1.7 2.5 2.3 -Post Debridement Size (cm) - Depth 0.6 0.8 0.7 -Total Square Cm 5.1 3.50 2.30 -Wound/Ulcer Outcome Not Healed Not Healed Not Healed -Ulcer Cleansing Rinsed/ Rinsed/ Rinsed/ Irrigated with Irrigated with Irrigated with Saline Saline Saline -Foul Odor after Cleansing No No No -Bioengineered Tissue No No -Bleeding Controlled with Pressure Pressure Pressure -Other 9:00-0.7cm tunnel -Offloading No No No -Treatment Response Procedure Procedure Procedure Tolerated Well Tolerated Well Tolerated Well Pain Scale: 0-10 Numeric Is Patient Pain Free? Yes Yes Yes 03/05/19 11:14 Wound Center Nurse 2 1. R buttock -Time 11:14 -Correct Patient Yes -Correct Side, Site, Position Yes -Correct Procedure Yes -Procedure Performed Yes -Type of Procedure Debridement -Clinical Debridement Subcutaneous -Post Debridement Size (cm) - Length 0.7 -Post Debridement Size (cm) - Width 1.5 -Post Debridement Size (cm) - Depth 0.2 -Total Square Cm 1.05 -Wound/Ulcer Outcome Not Healed -Ulcer Cleansing Rinsed/ Irrigated with Saline -Foul Odor after Cleansing No -Bioengineered Tissue No -Bleeding Controlled with Pressure -Other -Offloading No -Treatment Response Procedure Tolerated Well Pain Scale: 0-10 Numeric Is Patient Pain Free? Yes Wound debrided: #1 Right inferior gluteal/ischial area and vulval area. Laterality: Right Wound Grade/Stage: 3. Type of Debridement: Excisional debridement Anesthesia Used: 4% Lidocaine Solution Depth: Down to and including healthy tissue, in the subcutaneous layer Percentage of wound debrided: 100 Instrument Used: 5mm curette Tissue Removed: subcutaneous tissue. Severity: Fat Layer Exposed Amount of bleeding with debridement: Mild Bleeding Controlled with: Pressure Patient tolerated procedure well Assessment/Plan Assessment: 1. Complex nonhealing abscess ulcer right inferior gluteal/ischial area and vulval area with extension to perineum and inferior labia. 2. Hx of gastric bypass. 3. s/p surgical preparation right inferior gluteal/ischial area and vulval area with extension to perineum and inferior labia with incision and drainage and excisional debridement complex nonhealing abscess ulcer and partial vulvectomy including deep subcutaneous tissue (26 cm2). Plan: Continue Eugenie dressing changes daily. Encourage showering with portable shower head after each bowel movement. She has finished the Levaquin for the MRSE. She also finished the Flagyl. Prealbumin from 12/29/18 was 24.1. Encourage nutritional supplement ation with protein to help the healing process. Followup one week.
== END 2019-03-11 23:59 ==
LOC: WC 10:00
PROVIDERS: Family Provider Family Medicine; PCP Family Medicine; Referring Provider Surgery; Visit Provider Surgery
DX: L98.412 Non-pressure chronic ulcer of buttock with fat layer exposed (principal); Z98.84 Bariatric surgery status; L02.31 Cutaneous abscess of buttock; N76.4 Abscess of vulva; L02.215 Cutaneous abscess of perineum
CPT/HCPCS: 11042

== ENCOUNTER 2019-03-06 10:32 | Emergency (ER) | payer MEDICARE, SELFPAY ==
[2019-03-05 10:12] VITALS: BMI 29.2
[2019-03-06 10:34] VITALS: BP 92/62; PULSE 74; RESP 16; TEMP 36.6; O2SAT 100; BMI 26.5
--- NOTE | 2019-03-06 11:05 | EKG12_ITS ---
Test Reason : PALPS Blood Pressure : / mmHG Vent. Rate : 058 BPM Atrial Rate : 058 BPM P-R Int : 134 ms QRS Dur : 082 ms QT Int : 378 ms P-R-T Axes : 071 022 069 degrees QTc Int : 371 ms Sinus bradycardia Otherwise normal ECG Confirmed by BIBI BEAVERS ([id number]), editorial clerk MERVIN DUBOIS ([id number]) on 03/07/2019 1:45:04 PM Referred By: It[facility] House Confirmed By:BIBI BEAVERS
--- NOTE | 2019-03-06 11:11 | RAD_ITS ---
STUDY: X-RAY CHEST REASON FOR EXAM: Female, 43 years old. Chest pain TECHNIQUE: Single AP portable view of the chest. COMPARISON: None. FINDINGS: The lungs are clear and expanded. There is no demonstrated pleural abnormality. Normal size heart. Normal mediastinum and michael. Normal visualized pulmonary arteries. Normal visualized aortic arch and descending thoracic aorta. Normal visualized thoracic spine. Normal visualized ribs, clavicles, and shoulders. There is no demonstrated abnormality of the visualized soft tissue structures of the upper abdomen. RAD/Chest 1 View (Portable) IMPRESSION: Normal x-ray examination of the chest. Electronically Signed: Milton Price, at 11:49 EDT Tel , Service support ,
[2019-03-06 11:20] VITALS: BP 96/71; PULSE 59; RESP 12; O2SAT 100
[2019-03-06 11:46] LABS: Absolute Lymphocyte Count 1.31 X10^3/ul (0.83-4.51); Absolute Neutrophil Count 4.6 X10^3/uL (2.0-7.7); Basophil# 0.03 X10^3/uL; Basophil% 0.5 % (0-1); Eosinophil# 0.16 X10^3/uL; Eosinophils% 2.5 % (0-5); Hematocrit 38.9 % (37-47); Hemoglobin 13.1 g/dl (12.0-15.0); Lymphocyte # 1.31 X10^3/ul (4.0); Lymphocyte % 20.3 % (19-41); Mean Corp Hgb Conc 33.7 g/gl (32-36); Mean Corpuscular Hgb 32.1 pg (27.0-32.0); Mean Corpuscular Volume 95.3 fL (81-99); Mean Platelet Vol. 9.9 fl (6.2-12.0); Monocyte# 0.34 X10^3/uL; Monocyte% 5.3 % (0-10); Neutrophil # 4.61 X10^3/uL (2.7-7.7); Neutrophil % 71.4 % (47-70); POSITIVE COUNT NO; POSITIVE DIFFERENTIAL NO; POSITIVE MORPHOLOGY NO; Platelet Count 213 K/mm3 (150-450); RBC Distribution Width CV 12.4 % (11.6-14.6); RBC Distribution Width SD 42.7 fl (35.1-43.9); Red Blood Count 4.08 M/mm3 (4.2-5.4); White Blood Count 6.5 K/mm3 (4.4-11.0)
[2019-03-06 11:53] LABS: Internal QC Validated? YES +Cl - CLEAR BKGD; Pregnancy, Serum, hCG Quali. NEGATIVE Negative
[2019-03-06 12:08] LABS: Anion Gap 8 (5-15); BUN 12 mg/dL (7-18); BUN/Creat Ratio 17.9 RATIO (10-20); Calcium,Total 8.6 mg/dL (8.5-10.1); Chloride 108 mmol/L (98-107); Creatinine, Serum 0.67 mg/dL (0.55-1.02); EST Glomerular Filtration Rate 103 mL/min (>60); Est Glom Filt Rate - Afr Amer 124 mL/min (>60); Estimated Creatinine Clearance 90.48 ml/min; Glucose 91 mg/dL (74-106); Potassium 4.2 mmol/L (3.5-5.1); Sodium Level 144 mmol/L (136-145); Thyroid Stim Hormone (TSH) 2.27 uIU/mL (0.358-3.74)
[2019-03-06] MEDS: 0.9% Normal Saline 1,000 ML 1000 ML IV (12:12)
[2019-03-06 13:18] VITALS: BP 112/75; PULSE 51; RESP 12; O2SAT 100
--- NOTE | 2019-03-06 14:03 | ED.VISSUMM ---
- ER Visit Summary Date of Service: 03/06/19 Chief Complaint: Palpitations, blacked out History of Present Illness: The patient is a 43 F who had been having palpitations in September. She was seen by her PCP and was told to take her thyroid meds alone and her symptoms seem to be improved. She again developed racing heart rate after taking her a.m. meds over the past 3 days. She laid down today. She went to get up but does not remember that her heart was still racing at that time. She was lightheaded and blacked out. She fell backwards onto her bed and started shaking as if she was having a seizure. She was aware of everything going on at this time and there is no postictal period. Physical Examination: Blood pressure is 92/62, temp 97.8, heart rate 74, respiratory rate 16, pulse ox 100% on room air. Patient is in no acute distress and is nontoxic appearing. Head and neck examination is normal. Heart is regular rate and rhythm. Palpable pulses are noted throughout. Lungs are clear with good air movement throughout. Abdomen is soft and nontender. Bowel sounds are noted. Extremity examination is unremarkable with full range of motion. Neurologic examination reveals no focal deficits. Test Results: EKG is sinus bradycardia 58 bpm with no sign of acute ischemia. CBC and chemistry studies normal. TSH normal. test negative. Emergency Department Course and Treatment: Patient was given a liter of IV fluids. I spoke with Dr. Conner, on-call for cardiology. Patient will be given a 24-hour Holter monitor and will follow-up in the office for a possible echo. Treatment Plan: [] Disposition: Discharge Impression: 1. Palpitations 2. Orthostatic syncope This note was generated with [employer] software. It may contain incorrect words, spelling, and punctuation that were not noted in review of the chart prior to signing ED Disposition - Plan for ED Patient: Disposition: Home or Assisted Living Instructions: Palpitations Referrals: Ronnell Moreno MD [Primary Care Provider] - Ronnell Conner MD [STAFF PHYSICIAN] - As soon as possible
[2019-03-06 14:21] VITALS: BP 121/76; PULSE 68; RESP 15; O2SAT 98
== END 2019-03-06 14:23 | disposition home or self-care (01) ==
PROVIDERS: Emergency Provider Emergency Medicine; Family Provider Family Medicine; PCP Family Medicine
DX: R00.2 Palpitations (principal); R55 Syncope and collapse; R00.1 Bradycardia, unspecified
CPT/HCPCS: 71045; 80048; 84443; 84703; 85025; 93005

== ENCOUNTER → 2019-03-06 14:02 | Outpatient (CLI) | payer MEDICARE, SELFPAY ==
[2019-03-06 10:34] VITALS: BMI 26.5
== END ==
PROVIDERS: Family Provider Family Medicine; PCP Family Medicine; Visit Provider Emergency Medicine
DX: R00.2 Palpitations (principal); R55 Syncope and collapse; R00.1 Bradycardia, unspecified
CPT/HCPCS: 71045; 80048; 84443; 84703; 85025; 93005; 93225; 93226; 96360; 96361; 99283

== ENCOUNTER 2019-03-26 09:00 | Outpatient (RCR) | payer MEDICARE, SELFPAY ==
[2019-03-12 00:41] VITALS: BP 136/92; PULSE 72; RESP 16; TEMP 36
[2019-03-12 08:47] VITALS: BP 114/79; PULSE 88; RESP 16; TEMP 36.3; BMI 26.5
--- NOTE | 2019-03-12 12:10 | PCM.WC.PN ---
Type of Wound Date of Service: 03/12/19 Chief Complaint: Nonhealing abscess ulcer right inferior gluteal/ischial area and vulval area with extension to perineum and inferior labia. History of Wound: Surgery 12/28/18 - Surgical preparation right inferior gluteal/ischial area and vulval area with extension to perineum and inferior labia with incision and drainage and excisional debridement complex nonhealing abscess ulcer and partial vulvectomy including deep subcutaneous tissue (26 cm2). Wound care - Eugenie. Operative culture - MRSE. Perioperatively she was treated with Erythromycin, Bactrim DS, and Flagyl. MRSE was resistant to Erythromycin and Bactrim and they were stopped. She was started on Levaquin and finished them. She also finished the Flagyl. Prealbumin from 12/29/18 was 24.1. Encouraged nutritional supplementation with protein to help the healing process. Today the patient denies fever. Her appetite is good. Progress of Wound: Improved. - Physical Exam Vital Signs Temp Pulse Resp BP 97.3 F L 88 16 114/79 03/12/19 08:47 03/12/19 08:47 03/12/19 08:47 03/12/19 08:47 Debridement Note Post-Debridement Measurements/Treatment WC - Nurse 2 - General Ulcer CM Notes Start: 03/12/19 08:47 Freq: Status: Active Protocol: Activity Type Activity Date Activity User E-Sign Co-Sign Detail Recorded Client Recorded Date Recorded By Document 03/12/19 08:58 [id number] 03/12/19 09:02 ERMA 03/12/19 08:58 Wound Center Nurse 2 1. R buttock -Time 09:00 -Correct Patient Yes -Correct Side, Site, Position Yes -Correct Procedure Yes -Procedure Performed Yes -Type of Procedure Debridement -Clinical Debridement Subcutaneous -Post Debridement Size (cm) - Length 0.5 -Post Debridement Size (cm) - Width 1.3 -Post Debridement Size (cm) - Depth 0.4 -Total Square Cm 0.65 -Wound/Ulcer Outcome Not Healed -Ulcer Cleansing Rinsed/ Irrigated with Saline -Foul Odor after Cleansing No -Bioengineered Tissue No -Bleeding Controlled with Pressure -Offloading No -Treatment Response Procedure Tolerated Well Pain Scale: 0-10 Numeric Is Patient Pain Free? Yes Wound debrided: #1 Right inferior gluteal/ischial area and vulval area. Laterality: Right Wound Grade/Stage: 3. Type of Debridement: Excisional debridement Anesthesia Used: 4% Lidocaine Solution Depth: Down to and including healthy tissue, in the subcutaneous layer Percentage of wound debrided: 100 Instrument Used: 5mm curette Tissue Removed: subcutaneous tissue. Severity: Fat Layer Exposed Amount of bleeding with debridement: Mild Bleeding Controlled with: Pressure Patient tolerated procedure well Assessment/Plan Assessment: 1. Complex nonhealing abscess ulcer right inferior gluteal/ischial area and vulval area with extension to perineum and inferior labia. 2. Hx of gastric bypass. 3. s/p surgical preparation right inferior gluteal/ischial area and vulval area with extension to perineum and inferior labia with incision and drainage and excisional debridement complex nonhealing abscess ulcer and partial vulvectomy including deep subcutaneous tissue (26 cm2). Plan: Continue Eugenie dressing changes daily. Encourage showering with portable shower head after each bowel movement. She has finished the Levaquin for the MRSE. She also finished the Flagyl. Prealbumin from 12/29/18 was 24.1. Encourage nutritional supplement ation with protein to help the healing process. Followup one week.
[2019-03-19 11:44] VITALS: BP 113/75; PULSE 72; RESP 16; TEMP 37; BMI 26.5
--- NOTE | 2019-03-19 12:37 | PN.PCM_ITS ---
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 History of Wound: Surgery 12/28/18 - Surgical preparation right inferior glutea l/ischial area and vulval area with extension to perineum and inferior labia with incision and drainage and excisional debridement complex nonhealing abscess ulcer and partial vulvectomy including deep subcutaneous tissue (26 cm2). Wound care - Continue Eugenie dressing changes daily. Operative culture - MRSE. Perioperatively she was treated with Erythromycin, Bactrim DS, and Flagyl. MRSE was resistant to Erythromycin and Bactrim and they were stopped. She was started on Levaquin and finished them. She also finished the Flagyl. Prealbumin from 12/29/18 was 24.1. Encouraged nutritional supplementation with protein to help the healing process. Today the patient denies fever. Her appetite is good. Progress of Wound: Improved. - Physical Exam Vital Signs Temp Pulse Resp BP 98.6 F 72 16 113/75 03/19/19 11:44 03/19/19 11:44 03/19/19 11:44 03/19/19 11:44 General: Alert, Oriented x3, Cooperative HEENT: Atraumatic Oral: Moist Mucosa Lungs: Normal air movement Cardiovascular: Regular rate Extremities: No edema, Capillary Refill Less than 3 Seconds, Peripheral Pulses Normal Skin: Ulcer/ Wound - Right buttock ulcer Wound Measurements and Assessment WC - Nurse 1 - General Ulcer Measurement Start: 03/12/19 08:47 Freq: Status: Active Protocol: Activity Type Activity Date Activity User E-Sign Co-Sign Detail Recorded Client Recorded Date Recorded By Document 03/19/19 11:44 [id number] 03/19/19 11:45 MW 03/19/19 11:44 Wound Center Nurse 1 [Ulcer Assessment] 1. R buttock -Combined with other wound No -Current Size (cm) - Length 0.2 -Current Size (cm) - Width 0.5 -Current Size (cm) - Depth 0.1 -Total Square Cm 0.10 -Photo Taken No -Epithelialization Medium 34-66% -Tunneling No -Undermining/Tunneling No -Circular Undermining No -Exudate Amt Small -Exudate Type Serous -Wound Margin Flat & Intact -Granulation Amt Small (1-33%) -Granulation Quality Pale -Slough/Fibrin Yes -Necrosis Amt Small (1-33%) -Necrotic Tissue Type Adherent Slough -Structure Exposed N/A -Texture (Farrah-wound Skin Appearance) Assessed, Scarring -Moisture (Farrah-wound Skin Appearance No Abnormality, ) Assessed -Color (Farrah-wound Skin Appearance) No Abnormality, Assessed -Temperature (Farrah-wound Skin No Abnormality Appearance) (Pt Warm) -Tenderness on Palpation (Farrah-wound No Skin Appearance) -Ulcer Cleansing Rinsed/ Irrigated with Saline -Foul Odor after Cleansing No -Anesthetic Used 5% Lidocaine Gel [Edema Assessment] -Lower Limb Edema Present No WC - Nurse 2 - General Ulcer CM Notes Start: 03/12/19 08:47 Freq: Status: Active Protocol: Activity Type Activity Date Activity User E-Sign Co-Sign Detail Recorded Client Recorded Date Recorded By Document 03/19/19 12:11 [id number] 03/19/19 12:12 03/19/19 12:11 Wound Center Nurse 2 [Procedure/Treatment] 1. R buttock -Time 12:11 -Correct Patient Yes -Correct Side, Site, Position Yes -Correct Procedure Yes -Procedure Performed Yes -Type of Procedure Debridement -Clinical Debridement Subcutaneous -Post Debridement Size (cm) - Length 0.4 -Post Debridement Size (cm) - Width 0.5 -Post Debridement Size (cm) - Depth 0.3 -Total Square Cm 0.20 -Wound/Ulcer Outcome Not Healed -Ulcer Cleansing Rinsed/ Irrigated with Saline -Foul Odor after Cleansing No -Bioengineered Tissue No -Bleeding Controlled with Pressure -Offloading No -Treatment Response Procedure Tolerated Well [See Physician Procedure note for Specifics] Pain Scale: 0-10 Numeric [Pain] -Is Patient Pain Free? Yes Musculoskeletal: No Tenderness to Palpation of Joints or Extremities Neurological: Neuro grossly intact Psych/Mental Status: Normal Affect, Appropriate Debridement Note Post-Debridement Measurements/Treatment WC - Nurse 2 - General Ulcer CM Notes Start: 03/12/19 08:47 Freq: Status: Active Protocol: Activity Type Activity Date Activity User E-Sign Co-Sign Detail Recorded Client Recorded Date Recorded By Document 03/12/19 08:58 [id number] 03/12/19 09:02 Document 03/19/19 12:11 [id number] 03/19/19 12:12 03/12/19 03/19/19 08:58 12:11 Wound Center Nurse 2 1. R buttock -Time 09:00 12:11 -Correct Patient Yes Yes -Correct Side, Site, Position Yes Yes -Correct Procedure Yes Yes -Procedure Performed Yes Yes -Type of Procedure Debridement Debridement -Clinical Debridement Subcutaneous Subcutaneous -Post Debridement Size (cm) - Length 0.5 0.4 -Post Debridement Size (cm) - Width 1.3 0.5 -Post Debridement Size (cm) - Depth 0.4 0.3 -Total Square Cm 0.65 0.20 -Wound/Ulcer Outcome Not Healed Not Healed -Ulcer Cleansing Rinsed/ Rinsed/ Irrigated with Irrigated with Saline Saline -Foul Odor after Cleansing No No -Bioengineered Tissue No No -Bleeding Controlled with Pressure Pressure -Offloading No No -Treatment Response Procedure Procedure Tolerated Well Tolerated Well Pain Scale: 0-10 Numeric Is Patient Pain Free? Yes Yes Wound debrided: buttock ulcer Laterality: Right Type of Debridement: Excisional debridement Anesthesia Used: 5% Lidocaine Gel Depth: Down to and including healthy tissue, in the subcutaneous layer Percentage of wound debrided: 100 Instrument Used: 3mm curette Tissue Removed: Subcutaneous tissue and slough Severity: Limited To Skin Breakdown Amount of bleeding with debridement: Mild Bleeding Controlled with: Compression and gauze Patient tolerated procedure well Assessment/Plan Assessment: 1. Complex nonhealing abscess ulcer right inferior gluteal/ischial area and vulval area with extension to perineum and inferior labia. 2. Hx of gastric bypass. 3. s/p surgical preparation right inferior gluteal/ischial area and vulval area with extension to perineum and inferior labia with incision and drainage and excisional debridement complex nonhealing abscess ulcer and partial vulvectomy including deep subcutaneous tissue (26 cm2). Plan: Continue Eugenie dressing changes daily. She is almost healed. Encourage showering with portable shower head after each bowel movement. She has finished the Levaquin for the MRSE. She also finished the Flagyl. Prealbumin from 12/29/18 was 24.1. Encourage nutritional supplement ation with protein to help the healing process. Followup one week with Dr. House. Code Visit [id number]
[2019-03-26 09:49] VITALS: BP 116/74; PULSE 71; RESP 18; TEMP 36.6; BMI 26.5
--- NOTE | 2019-03-26 14:25 | PCM.WC.PN ---
Type of Wound Date of Service: 03/26/19 Chief Complaint: Nonhealing abscess ulcer right inferior gluteal/ischial area and vulval area with extension to perineum and inferior labia. History of Wound: Surgery 12/28/18 - Surgical preparation right inferior gluteal/ischial area and vulval area with extension to perineum and inferior labia with incision and drainage and excisional debridement complex nonhealing abscess ulcer and partial vulvectomy including deep subcutaneous tissue (26 cm2). Wound care - Eugenie. Operative culture - MRSE. Perioperatively she was treated with Erythromycin, Bactrim DS, and Flagyl. MRSE was resistant to Erythromycin and Bactrim and they were stopped. She was started on Levaquin and finished them. She also finished the Flagyl. Prealbumin from 12/29/18 was 24.1. Encouraged nutritional supplementation with protein to help the healing process. Today the patient denies fever. Her appetite is good. Progress of Wound: Healed. - Physical Exam Vital Signs Temp Pulse Resp BP 97.8 F 71 18 116/74 03/26/19 09:49 03/26/19 09:49 03/26/19 09:49 03/26/19 09:49 General: Alert, Oriented x3 HEENT: PERRLA, EOMI Oral: Moist Mucosa Neck: Supple Lungs: Clear to auscultation Cardiovascular: Regular rate, Regular Rhythm Abdomen: Soft, Non-Distended Skin: - - healed wound in right inferior gluteal/ischial area and vulval slade. Wound Measurements and Assessment WC - Nurse 1 - General Ulcer Measurement Start: 03/12/19 08:47 Freq: Status: Active Protocol: Activity Type Activity Date Activity User E-Sign Co-Sign Detail Recorded Client Recorded Date Recorded By Document 03/26/19 09:49 [id number] 03/26/19 09:55 RB 03/26/19 09:49 Wound Center Nurse 1 [Ulcer Assessment] 1. R buttock -Combined with other wound No -Current Size (cm) - Length 0 -Current Size (cm) - Width 0 -Current Size (cm) - Depth 0 -Total Square Cm 0 -Photo Taken Yes -Epithelialization Large 67-100% -Tunneling No -Undermining/Tunneling No -Circular Undermining No -Exudate Amt None Present -Wound Margin Fibrotic Scar, Thickened Scar -Granulation Amt Large (67-100%) -Granulation Quality [place] -Slough/Fibrin No -Necrosis Amt None Present (0 %) -Structure Exposed N/A -Texture (Farrah-wound Skin Appearance) Assessed, Friable -Moisture (Farrah-wound Skin Appearance Assessed ) -Color (Farrah-wound Skin Appearance) Assessed -Temperature (Farrah-wound Skin No Abnormality Appearance) (Pt Warm) -Tenderness on Palpation (Farrah-wound No Skin Appearance) -Ulcer Cleansing Wound Cleanser -Foul Odor after Cleansing No - Nurse 2 - General Ulcer CM Notes Start: 03/12/19 08:47 Freq: Status: Active Protocol: Activity Type Activity Date Activity User E-Sign Co-Sign Detail Recorded Client Recorded Date Recorded By Document 03/26/19 10:59 MW [id number] 03/26/19 11:00 MW 03/26/19 10:59 Wound Center Nurse 2 [Procedure/Treatment] -Time 11:00 -Correct Patient Yes -Correct Side, Site, Position Yes -Correct Procedure Yes -Procedure Performed No -Post Debridement Size (cm) - Length 0 -Post Debridement Size (cm) - Width 0 -Post Debridement Size (cm) - Depth 0 -Total Square Cm 0 -Wound/Ulcer Outcome Healed- Epithelialized [See Physician Procedure note for Specifics] Pain Scale: 0-10 Numeric [Pain] -Is Patient Pain Free? Yes Neurological: Cranial nerves II-XII grossly intact Psych/Mental Status: Normal Affect, Appropriate Debridement Note Post-Debridement Measurements/Treatment - Nurse 2 - General Ulcer CM Notes Start: 03/12/19 08:47 Freq: Status: Active Protocol: Activity Type Activity Date Activity User E-Sign Co-Sign Detail Recorded Client Recorded Date Recorded By Document 03/12/19 08:58 [id number] 03/12/19 09:02 Document 03/19/19 12:11 [id number] 03/19/19 12:12 Document 03/26/19 10:59 MW [id number] 03/26/19 11:00 MW 03/12/19 03/19/19 03/26/19 08:58 12:11 10:59 Wound Center Nurse 2 1. R buttock -Time 09:00 12:11 11:00 -Correct Patient Yes Yes Yes -Correct Side, Site, Position Yes Yes Yes -Correct Procedure Yes Yes Yes -Procedure Performed Yes Yes No -Type of Procedure Debridement Debridement -Clinical Debridement Subcutaneous Subcutaneous -Post Debridement Size (cm) - Length 0.5 0.4 0 -Post Debridement Size (cm) - Width 1.3 0.5 0 -Post Debridement Size (cm) - Depth 0.4 0.3 0 -Total Square Cm 0.65 0.20 0 -Wound/Ulcer Outcome Not Healed Not Healed Healed- Epithelialized -Ulcer Cleansing Rinsed/ Rinsed/ Irrigated with Irrigated with Saline Saline -Foul Odor after Cleansing No No -Bioengineered Tissue No No -Bleeding Controlled with Pressure Pressure -Offloading No No -Treatment Response Procedure Procedure Tolerated Well Tolerated Well Pain Scale: 0-10 Numeric Is Patient Pain Free? Yes Yes Yes Wound debrided: #1 Right inferior gluteal/ischial area and vulval area. Laterality: Right Wound Grade/Stage: 3. No debridement was completed today - the ulcer has healed. Assessment/Plan Assessment: 1. Complex nonhealing abscess ulcer right inferior gluteal/ischial area and vulval area with extension to perineum and inferior labia, healed. 2. Hx of gastric bypass. 3. s/p surgical preparation right inferior gluteal/ischial area and vulval area with extension to perineum and inferior labia with incision and drainage and excisional debridement complex nonhealing abscess ulcer and partial vulvectomy including deep subcutaneous tissue (26 cm2). Plan: The ulcer has healed. Massage the scar with skin lotion and body wash when showering on a daily basis to help soften up the scar. It is ok for the patient to swim in a chlorinated pool. Followup on an as needed basis.
== END 2019-04-11 23:59 ==
LOC: WC 09:00
PROVIDERS: Family Provider Family Medicine; PCP Family Medicine; Referring Provider Surgery; Visit Provider Surgery
DX: L98.412 Non-pressure chronic ulcer of buttock with fat layer exposed (principal); Z98.84 Bariatric surgery status; L02.31 Cutaneous abscess of buttock; N76.4 Abscess of vulva; L02.215 Cutaneous abscess of perineum
CPT/HCPCS: 11042; 99212; G0463

== ENCOUNTER → 2020-01-04 14:30 | Outpatient (CLI) | payer MEDICARE, MEDICAID, SELFPAY ==
[2019-04-26 10:42] VITALS: BMI 27.6
[2020-01-04 15:51] LABS: Follicle Stimulating Hormone 4.7 mIU/mL
== END ==
PROVIDERS: PCP Family Medicine; Referring Provider Obstetrics & Gynecology; Visit Provider Obstetrics & Gynecology
DX: N95.1 Menopausal and female climacteric states (principal)
CPT/HCPCS: 83001

== ENCOUNTER → 2020-06-23 08:57 | Observation (INO) | payer MEDICARE, MEDICAID, SELFPAY ==
[2020-04-16 09:43] VITALS: BMI 27.6
[2020-05-14 09:43] VITALS: BMI 27.6
[2020-06-16 10:19] LABS: Partial Thromboplast Time 27.4 Seconds (24.1-36.2); Prothrombin Time (Protime)PT. 12.8 SECONDS (11.7-14.9)
[2020-06-16 10:41] LABS: Hematocrit 40.7 % (37-47); Hemoglobin 13.1 g/dL (12.0-15.0); Mean Corp Hgb Conc 32.2 g/dL (32-36); Mean Corpuscular Hgb 32.1 pg (27.0-32.0); Mean Corpuscular Volume 99.8 fL (81-99); Mean Platelet Vol. 10.4 fl (6.2-12.0); Platelet Count 199 K/mm3 (150-450); RBC Distribution Width CV 12.4 % (11.6-14.6); RBC Distribution Width SD 46.3 fl (35.1-43.9); Red Blood Count 4.08 M/mm3 (4.2-5.4); White Blood Count 5.4 K/mm3 (4.4-11.0)
[2020-06-16 10:48] LABS: AST(SGOT) 23 U/L (15-37); Alanine Aminotransfer ALT/SGPT 26 U/L (13-56); Albumin, Serum 3.4 g/dL (3.2-5.0); Alkaline Phosphatase 63 U/L (45-117); Globulin 3.4 g/dL (2.2-4.2); Protein, Total 6.8 g/dL (6.4-8.2); Thyroid Stim Hormone (TSH) 3.76 uIU/mL (0.358-3.74)
--- NOTE | 2020-06-22 23:52 | HP.PCM_ITS ---
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 Her weight decreased from 299 down to 160 lbs. She also has redundant skin and subcutaneous tissue in the supraumbilical area with associated intertrigo and redundant skin and subcutaneous tissue in her bilateral medial upper thighs with associated pain and intertrigo. For the intertrigo, she uses powders for relief. She denies nausea and vomiting and bloating. We have obtained insurance approval for the panniculectomy as well as the dermolipectomy bilateral upper medial thighs. Will proceed with the abdominal panniculectomy at this time and proceed with the thigh surgery later after the abdominal incision has healed. She presents at this time for preop evaluation and to sign consents. 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) Postural hypotension (Chronic) GERD (gastroesophageal reflux disease) (Chronic) Hypothyroidism (Chronic) Essential hypertension (Chronic) Anemia (Acute) Anxiety and depression (Acute) Bone fracture (Acute) Frequent headaches (Acute) Heart murmur (Acute) Hemorrhoids (Acute) Hypoglycemia (Acute) Mixed hyperlipidemia (Acute) RSD (reflex sympathetic dystrophy) (Acute) Recurrent infections (Acute) Seasonal allergies (Acute) Sleep apnea (Acute) Tarsal tunnel syndrome (Acute) Vitamin deficiency (Acute) Anxiety (Chronic) Arthritis (Chronic) Chronic pain (Chronic) IBS (irritable bowel syndrome) (Chronic) Lumbar spondylolysis (Chronic) Abscess of buttock, right (Resolved) Gallstones (Resolved) History of DVT (deep vein thrombosis) (Resolved) Hives (Resolved) Non-healing ulcer of buttock with fat layer exposed (Resolved) UTI (urinary tract infection) (Resolved) Ulceration, vulva (Resolved) PAST SURGICAL HISTORY excision of lesion (Chronic) History of foot surgery (Resolved) Hx of cholecystectomy (Resolved) Hx of gastric bypass (Resolved) Hx of hysterectomy (Resolved) I &D right buttock abscess (Resolved) L2-5 medial branch radiofrequency ablation (Resolved ~10/13/17) ALLERGIES Penicillins [PCN] Allergy (Verified 05/14/20 09:42) Rash silicone [Silicone] Allergy (Verified 05/14/20 09:42) Rash hydrochlorothiazide Adverse Reaction (Verified 05/14/20 09:42) Other Uyjmami-Kdy-Vlr Reductase Inhibitor Adverse Reaction (Verified 05/14/20 09:42) Other topiramate [From Topamax] Adverse Reaction (Verified 05/14/20 09:42) Chest tightness MEDICATIONS Ergocalciferol [Vitamin D] 50,000 unit PO Q7D 06/19/13 [History Confirmed 04/26/19] Levothyroxine [Synthroid] 50 mcg PO DAILY 06/19/13 [History Confirmed 04/26/19] Omeprazole [Prilosec] 20 mg PO BID 06/19/13 [History Confirmed 04/26/19] Biotin 10 mg PO DAILY 12/22/13 [History Confirmed 04/26/19] Calcium Citrate/Vitamin D3 [Calcium Citrate-Vit D3 Tablet] 6 tab PO DAILY 06/23/17 [History Confirmed 04/26/19] Cyanocobalamin (Vitamin B-12) [Vitamin B-12] 500 mcg PO DAILY 06/23/17 [History Confirmed 04/26/19] Tizanidine HCl [Zanaflex] 4 mg PO DAILY 06/23/17 [History Confirmed 04/26/19] Rizatriptan Benzoate [Maxalt] 5 mg PO .X1 PRN 10/18/18 [History Confirmed 04/26/19] Ascorbic Acid [Vitamin C] 500 mg PO DAILY@0800 12/25/18 [History Confirmed 04/26/19] Multivitamin with Minerals [Multiple Vitamin] 1 ea PO DAILY 12/25/18 [History Confirmed 04/26/19] Docusate Sodium [Colace] 100 mg PO BID #60 cap 12/30/18 [Rx Confirmed 04/26/19] proMETHazine tablet [Phenergan tablet] 25 mg PO 4X/DAY PRN PRN #30 tab 12/30/18 [Rx Confirmed 04/26/19] polyethylene glycol 3350 17 gram/dose oral powder 17 g PO DAILY PRN #119 g 01/04/19 [Rx Confirmed 04/26/19] trazodone 50 mg tablet 100 mg PO QHS PRN 04/26/19 [History Confirmed 04/26/19] zonisamide 100 mg capsule 400 mg PO QHS cap 04/26/19 [History Confirmed 04/26/19] duloxetine 60 mg capsule,delayed release 120 mg PO DAILY cap 05/14/20 [History Confirmed 05/14/20] FAMILY HISTORY Mother Diabetes Cancer Hypertension Heart disease Angina at rest Arthritis High cholesterol Kidney disease Father Heart disease Hypertension Anemia Anxiety Arthritis High cholesterol Psychiatric care Suicide attempt Brother Hypertension Asthma Alcoholism Anxiety Arthritis Psychiatric care Suicide attempt SOCIAL HISTORY Smoking Status: Never smoker second hand exposure: No alcohol intake: never substance use type: does not use caffeine: Yes what type of physical activity do you participate in: walking seatbelt use: always additional social history: DOES NOT USE ASPIRIN DOES NOT USE IBUPROFEN REVIEW OF SYSTEMS General - Denies fever. Has weight loss from gastric bypass of 139 lbs. Has fatigue. Eyes - Denies cataracts and glaucoma. ENT - Denies nasal congestion and sore throat. Endocrine - Has excessive thirst and urination. Has thyroid disease. Has heat/cold intolerance. Skin - Denies suspicious lesions and skin cancer. Has abdominal wall skin crease intertrigo, supraumbilical intertrigo, and medial upper thighs intertrigo. Has abdominal panniculus. Has redundant skin and subcutaneous tissue bilateral upper medial thighs. Musculoskeletal - Has joint pain, joint stiffness, weakness of muscles and joints, back pain, and arthritis. Neuro - Has headaches. Cardiovascular - Denies chest pain, fatigue, and shortness of breath with exertion. Psych - Denies anxiety. Has depression. Has claustrophobia. Respiratory - Denies chronic cough and shortness of breath. Gastrointestinal - Denies nausea, vomiting, diarrhea, and constipation. Hematologic - Denies abnormal bruising and bleeding. Genitourinary - Denies hematuria and urinary frequency. Has incontinence. PHYSICAL EXAMINATION General - Alert and Oriented. Bra size is 38 C. HEENT - PERRL. EOMI. Throat is clear. Neck - Supple and nontender. No cervical adenopathy. Lungs - Clear to auscultation. Heart - Regular rate and rhythm. Abdomen - Soft and nondistended. Has large abdominal panniculus with redundant skin and subcutaneous tissue. Has diastasis of abdominal recti muscles of about 3 cm. Has supraumbilical skin and subcutaneous tissue redundancy. Has abdominal wall skin crease and supraumbilical intertrigo. No palpable ventral hernia. Extremities - FROM. No axillary adenopathy. No inguinal adenopathy. Radial pulses are palpable. Has redundant skin and subcutaneous tissue with isolated adiposity bilateral upper medial thighs. Has associated intertrigo. Neuro - CN II-XII grossly intact. Psych - Normal mood and affect. ASSESSMENT 1. Large abdominal panniculus. 2. Abdominal wall skin crease and supraumbilical intertrigo. 3. Recent excessive weight loss. 4. History of gastric bypass surgery. 5. Redundant skin and subcutaneous tissue with isolated adiposity bilateral upper medial thighs. 6. Medial thigh intertrigo. 7. Diastasis of abdominal recti muscles. PLAN Discussed abdominal wall contouring with the patient. She would benefit from an abdominal panniculectomy. This only removes the lower abdominal wall skin redundancy. The supraumbilical skin and subcutaneous redundancy would not be affected. After the panniculectomy, if she is interested in further abdominal wall contouring in the supraumbilical area, then a completion abdominoplasty can be done. Tightening of the diastasis of her abdominal recti muscles would also be done. The completion abdominoplasty would not be covered by insurance and she would be financially responsible for that portion. After the panniculectomy, she will have residual isolated adiposity in her flank areas and gluteal areas. Dermolipectomy can be done in these areas as well and also would not be covered by insurance and she would be financially responsible for that portion. She voices understanding. She would also benefit from a dermolipectomy bilateral upper medial thighs which would improve her symptomatology and minimize persistent intertrigo. This surgery would be done separately after the abdominal wall surgery has healed. Both surgeries would be done under general anesthesia with a surgical observation overnight stay in the hospital. Will have drains in for several days and be maintained on antibiotics until the drains are removed. She will have an abdominal binder that she will wear for several weeks and be on a lifting restriction. For the medial thighs, will wear compression nicko wraps or a compression garment. Patient was informed of the risks and complications of the procedure including alternatives to surgery. These were discussed with the patient personally. Patient voices understanding and wishes to proceed. Some of the risks and complications were included in a form from the [place] [employer]. She had some remaining preop questions that were answered personally and to her satisfaction. We discussed the current risks associated with COVID-19. While it is understood that there is a community spread of COVID-19, the risk of victorina COVID-19 while at [facility] ([facility]) is very low; however, the risk cannot be completely mitigated because of the community spread of the disease. We discussed in detail the risk of exposure to and/or potential harm posed by the COVID-19 virus with having a surgery/procedure at this time versus the risk of delaying the surgery/procedure. It is not possible to know either the risk of delaying the surgery or procedure or chance of getting an infection with perfect accuracy, but a joint decision was made to proceed at this time with the scheduled surgery/procedure as indicated on the consent form. Patient was notified that we will need to comply with any screening or testing [facility] wishes to perform or that surgery may be delayed for any positive results. Discussed with the patient that I was tested for COVID-19 on 03/13/20 which was negative and on 03/27/20 which was negative and on 04/10/20 which was negative and on 04/24/20 which was negative and on 05/08/20 which was negative and on 05/29/20 w hich was negative and on 06/19/20 which was negative. My testing regimen at this time is to be COVID-19 tested every 2 weeks or so. Procedure Criteria Procedure Type: Elective COVID Risk Discussion: The surgeon/proceduralist and patient have discussed in detail the risk of exposure to and/or potential harm posed by the COVID-19 virus with having a surgery/procedure at this time versus the risk of delaying the surgery/procedure. It is not possible to know either the risk of delaying the surgery or procedure or chance of getting an infection with perfect accuracy, but a joint decision was made between the patient and the surgeon/proceduralist to proceed at this time with the scheduled surgery/procedure as indicated on the consent form.
[2020-06-23] VITALS (9 sets, daily range): BP systolic 105–135; BP diastolic 72–86; PULSE 53–94; RESP 14–16; TEMP 36.3–36.9; O2SAT 95–100; BMI 26.2
[2020-06-23] MEDS: Lactated Ringers 1,000 ML 100 ML IV (09:50)
--- NOTE | 2020-06-23 10:30 | PANN_PTH ---
PATIENT: ALFONSO TORO LOC: MS3 U#:[id number] AGE/SX: 49/F ROOM: AR314 RE06/23/[address]: Dr. Itz House MD : [id number] BED: 1 DIS: SPEC #: [id number] RECD: 06/23/20 13:37 STATUS: FAN RAUL #: [id number] LUTHER: 06/23/20 10:[address]: Itz House DEPT: SURGICAL PATHOLOGY RECD BY: Mitch Aguirre ENTERED: 06/23/20 13:44 SP TYPE: PANNUS EDWIN DR: Dr. Ronnell Moreno MD Tissues: Abdomen, NOS Procedures: Surgery Specimen Level IV HEADER OPERATION: Abdominal panniculectomy PRE-OP DIAGNOSIS: Large abdominal panniculus TISSUE SUBMITTED: Abdominal pannus MICROSCOPIC DIAGNOSIS Abdominal skin and soft tissue, panniculectomy: Superficial chronic dermatitis, mild. AM:rasheed 06/25/20 MICROSCOPIC DESCRIPTION Slides are reviewed. GROSS DESCRIPTION Received in fixative is one container labeled with the patient's name and designated abdominal pannus. The specimen consists of multiple irregular fragments of pink-hassan skin with attached fibrofatty tissue ranging in size from 2.5 to 22 cm. No cutaneous lesions are identified. Serial sections do not reveal mass lesions. Family D[employer] Service Specialist sections are submitted in four cassettes. / AM:rasheed 06/24/20 TC:3 CPT: 36874
--- NOTE | 2020-06-23 13:59 | OP.PCM_ITS ---
Report of Operation Date of Procedure: 06/23/20 Pre-Operative Diagnosis: 1. Large abdominal panniculus. 2. Abdominal wall skin crease and supraumbilical intertrigo. 3. Recent excessive weight loss. 4. History of gastric bypass surgery. Post-Operative Diagnosis: Same. Surgery/Procedure Performed:: Abdominal panniculectomy. Description of Surgical Findings:: 44 year old woman presents for evaluation of abdominal panniculus and associated abdominal wall skin crease intertrigo that developed after undergoing a gastric bypass procedure 7 years ago at [facility]. Her weight decreased from 299 down to 160 lbs. She also has redundant skin and subcutaneous tissue in the supraumbilical area with associated intertrigo and redundant skin and subcutaneous tissue in her bilateral medial upper thighs with associated pain and intertrigo. For the intertrigo, she uses powders for relief. She denies nausea and vomiting and bloating. We have obtained insurance approval for the panniculectomy as well as the dermolipectomy bilateral upper medial thighs. Will proceed with the abdominal panniculectomy at this time and proceed with the thigh surgery later after the abdominal incision has healed. Patient was informed of the risks and complications of the procedure including alternatives to surgery. These were discussed with the patient personally. Patient voices understanding and wishes to proceed. Some of the risks and complications were included in a form from the [place] [employer]. I used Luisana absorbable hemostat, (I used 2 vials). Reference Number - [id number]. Lot Number - [id number]. Expiration - February 06, 2025. collections professional: None collections professional: Chidi Membreno. Type of Anesthesia:: General Specimen's removed: Abdominal panniculus to Pathology. Drains: Tony x2. Estimated Blood Loss (mL): 150 ml. Description of Procedure: Patient was taken to OR in supine position and was placed under general anesthesia. The abdominal wall was prepped and draped in the usual fashion. SCD's were placed for DVT prophylaxis. Perioperative antibiotics were given intravenously. For the procedure, I wore an N95 mask and wore proper eyewear protection. The abdominal wall skin crease was marked in the preop area prior to coming to the operating room. Using xylocaine with epinephrine, this marking was infiltrated. After waiting 5 minutes for the anesthetic to take effect, I made a horizontal incision through the marking in the abdominal wall skin crease by the pubic area down through Doe's fascia until the abdominal wall fascia was seen. I dissected the abdominal wall skin flap up toward the umbilicus. I elevated the patient's head about 30 degrees and pulled the abdominal wall skin down toward the pubic area. I then marked the upper portion of the abdominal panniculus to be excised. Incision was made and dissection was carried down through Doe's fascia down to the abdominal wall fascia. Hemostasis was obtained using electrocautery. The wound was irrigated with saline. The horizontal elliptical excision of the abdominal panniculus was excised and will be sent to Pathology for analysis to rule out carcinoma. I elevated the abdominal wall a little past the umbilicus to aid in wound closure. I placed two size 15 Tony drains through separate stab incisions laterally and secured to the skin edge with 3-0 Nylon suture. I sprayed Luisana absorbable hemostat into the abdominal wall wound to minimize seroma formation. I used 2 vials. I then closed the abdominal panniculectomy wound in a multiple layered fashion with 2-0 Vicryl figure of eight interrupted sutures for the underlying Doe's fascia. The deep dermis and subcutaneous tissue was approximated with 2-0 Vicryl interrupted sutures and 3-0 Monocryl interrupted sutures. The skin was approximated with 3-0 V lock unidirectional barbed running subcuticular suture. This was followed by Histoacryl skin tissue adhesive. Kerlix gauze was applied to the incision followed by an abdominal binder. Patient tolerated the procedure well and was sent to PACU in satisfactory condition. Patient will be sent upstairs for continued postop care. She will be discharged once she is tolerating po analgesia and is steady on her feet with ambulation. Drains will be removed in the office after discharge. She will wear her abdominal binder for several weeks postoperatively. Grafts/Implants Used: Luisana. - Complications None. - Admit VTE Documentation VTE Present on Admission: No VTE Mechan Device Prophylaxis: SCD's VTE Pharm Prophylaxis ordered?: Yes Surgery Charges CPT - 51889 ICD-10 - E65, L30.4, R63.4, Z98.84
[2020-06-23] MEDS: Scopolamine 1mg/72hr Patch 1 PATCH TD (15:52)
[2020-06-23] MEDS: Lactated Ringers 1,000 ML 60 ML IV (15:56)
[2020-06-23] MEDS: HYDROmorphone 1 MG/ML Syringe IV ×2 (16:01→19:43)
[2020-06-23] MEDS: Acetaminophen 500 MG Tablet 1000 MG PO ×2 (17:40→23:32)
[2020-06-23] MEDS: Gabapentin 100 MG Capsule 200 MG PO (17:40)
[2020-06-23] MEDS: oxyCODONE 5 MG Tablet PO ×2 (17:40→22:07)
[2020-06-23] MEDS: Docusate Sodium 100 MG Capsule PO (22:08)
[2020-06-23] MEDS: ZONISAMIDE 100 MG CAPSULE 400 MG PO (22:09)
[2020-06-24 00:32] VITALS: BP 135/83; PULSE 62; RESP 16; TEMP 36.8; O2SAT 98
[2020-06-24] MEDS: HYDROmorphone 1 MG/ML Syringe IV ×3 (00:37→10:34)
[2020-06-24] MEDS: oxyCODONE 5 MG Tablet PO ×4 (01:55→22:53)
[2020-06-24 05:00] VITALS: BP 124/74; PULSE 57; RESP 16; TEMP 36.8; O2SAT 100
[2020-06-24] MEDS: Levothyroxine 50 MCG Tablet PO (05:22)
[2020-06-24] MEDS: Acetaminophen 500 MG Tablet 1000 MG PO ×3 (05:22→17:50)
[2020-06-24 06:20] LABS: Hematocrit 38.8 % (37-47); Hemoglobin 12.4 g/dL (12.0-15.0); Mean Corpuscular Hgb 32.4 pg (27.0-32.0); Mean Corpuscular Volume 101.3 fL (81-99); Mean Platelet Vol. 9.7 fl (6.2-12.0); Platelet Count 231 K/mm3 (150-450); RBC Distribution Width CV 12.5 % (11.6-14.6); RBC Distribution Width SD 46.8 fl (35.1-43.9); Red Blood Count 3.83 M/mm3 (4.2-5.4); White Blood Count 10.2 K/mm3 (4.4-11.0)
[2020-06-24 06:57] LABS: Anion Gap 4 (5-15); BUN 9 mg/dL (7-18); Calcium,Total 8.5 mg/dL (8.5-10.1); Chloride 105 mmol/L (98-107); Creatinine, Serum 0.69 mg/dL (0.55-1.02); EST Glomerular Filtration Rate 98 mL/min (>60); Est Glom Filt Rate - Afr Amer 119 mL/min (>60); Estimated Creatinine Clearance 90.78 ml/min; Glucose 114 mg/dL (74-106); Potassium 3.7 mmol/L (3.5-5.1); Prealbumin 21.5 mg/dL (20.0-40.0); Sodium Level 137 mmol/L (136-145)
[2020-06-24 07:16] VITALS: O2SAT 98
[2020-06-24] MEDS: Gabapentin 100 MG Capsule 200 MG PO ×3 (08:47→17:50)
[2020-06-24] MEDS: Enoxaparin 40 MG/0.4 ML Syringe SC (08:47)
[2020-06-24] MEDS: Docusate Sodium 100 MG Capsule PO ×2 (08:51→22:46)
[2020-06-24] MEDS: DULoxetine Hcl 60 MG Capsule 120 MG PO (08:51)
[2020-06-24] MEDS: tiZANidine HCl 2 MG Tablet 4 MG PO (08:52)
[2020-06-24] MEDS: Ascorbic Acid 500 MG Tablet PO (08:53)
[2020-06-24] MEDS: Pantoprazole Sodium 40 MG Tablet PO (08:53)
[2020-06-24] MEDS: Cyanocobalamin 500 MCG Tablet PO (08:53)
[2020-06-24 09:00] VITALS: BP 121/80; PULSE 63; RESP 14; TEMP 36.5; O2SAT 100
[2020-06-24] MEDS: 0.9% Saline Lock 10 ML Syringe IV (10:34)
[2020-06-24] MEDS: Multivitamins,Ther W-Minerals Tablet 1 TABLET PO (12:19)
[2020-06-24] MEDS: Calcium Carb/Vitamin D 1 TABLET Tablet 2 TABLET PO (12:20)
[2020-06-24] MEDS: Ondansetron ODT 4 MG Tablet PO (12:25)
--- NOTE | 2020-06-24 13:06 | PCM.PN.SRG ---
Subjective: Post op day #1 Patient state she is having a significant amount of pain and needing IV pain medication. - Physical Exam Vitals/I&O's: Vital Signs Temp Pulse Resp BP Pulse Ox 97.7 F L 63 14 121/80 H 100 06/24/20 09:00 06/24/20 09:00 06/24/20 09:00 06/24/20 09:00 06/24/20 09:00 Oxygen Delivery Method Room Air Weight: 153 lb 0.013 oz Body Mass Index (BMI) 26.2 Intake and Output for Last 24 Hours 06/22/20 06/23/20 06/24/20 23:59 23:59 23:59 Intake Total 1356 / 1806 1558 / 1558 Output Total 55 / 55 80 / 80 Balance 1301 / 1751 1478 / 1478 JAMIR drain #1 50 ml, #2 30 ml General: Alert, Cooperative HEENT: Atraumatic Oral: Moist Mucosa Lungs: Normal air movement Cardiovascular: Regular rate Abdomen: Soft, Tender Extremities: Capillary Refill Less than 3 Seconds Skin: Incision - Lower abdominal incision is dry and intact. Serosanguineous drainage from the JAMIR drains. Operative dressing changed. Musculoskeletal: No Tenderness to Palpation of Joints or Extremities Neurological: Cranial nerves II-XII grossly intact Psych/Mental Status: Normal Affect, Appropriate Laboratory Results 06/24/20 06:06: WBC 10.2, RBC 3.83 L, Hgb 12.4, Hct 38.8, MCV 101.3 H, MCH 32.4 H, MCHC 32.0, RDW Std Deviation 46.8 H, RDW Coeff of [place] 12.5, Plt Count 231, MPV 9.7 06/24/20 06:06: Sodium 137, Potassium 3.7, Chloride 105, Carbon Dioxide 28.0, Anion Gap 4 L, BUN 9, Creatinine 0.69, Estim Creat Clear Calc 90.78, Est GFR (MDRD) Af Amer 119, Est GFR (MDRD) Non-Af 98, BUN/Creatinine Ratio 13.0, Glucose 114 H, Calcium 8.5, Prealbumin 21.5 Current Medications Acetaminophen (Tylenol) 1,000 mg PO Q6 ON LICENSE OF [facility] Last Admin: 06/24/20 12:19 Dose: 1,000 mg Documented by: Ascorbic Acid (Vitamin C) 500 mg PO DAILY@0800 ON LICENSE OF [facility] Last Admin: 06/24/20 08:53 Dose: 500 mg Documented by: Buspirone HCl (Buspar) 15 mg PO BID PRN PRN PRN Reason: ANXIETY Calcium/Vitamin D (Calcium Carb/Vitamin D 1 Tablet Tablet) 2 tablet PO DAILY@1200 ON LICENSE OF [facility] Last Admin: 06/24/20 12:20 Dose: 2 tablet Documented by: Cholecalciferol (Vitamin D (25mcg)) 4,000 unit PO DAILY ON LICENSE OF [facility] Last Admin: 06/24/20 08:52 Dose: 4,000 unit Documented by: Cyanocobalamin (Vitamin B12) 500 mcg PO DAILY ON LICENSE OF [facility] Last Admin: 06/24/20 08:53 Dose: 500 mcg Documented by: Diazepam (Valium) 5 mg PO 4X/DAY PRN PRN PRN Reason: SPASMS Docusate Sodium (Colace) 100 mg PO BID ON LICENSE OF [facility] Last Admin: 06/24/20 08:51 Dose: 100 mg Documented by: Docusate Sodium (Colace) 100 mg PO DAILY PRN PRN PRN Reason: Constipation Duloxetine HCl (Cymbalta) 120 mg PO DAILY ON LICENSE OF [facility] Last Admin: 06/24/20 08:51 Dose: 120 mg Documented by: Enoxaparin Sodium (Lovenox) 40 mg SC DAILY ON LICENSE OF [facility] Last Admin: 06/24/20 08:47 Dose: 40 mg Documented by: Gabapentin (Neurontin) 200 mg PO TIDCM ON LICENSE OF [facility] Last Admin: 06/24/20 12:20 Dose: 200 mg Documented by: Hydromorphone HCl (Dilaudid Inj) 0.5 - 1 mg IV Q3H PRN PRN PRN Reason: Pain Score 6-10 Last Admin: 06/24/20 10:34 Dose: 1 mg Documented by: Clindamycin Phosphate 600 mg/ (Dextrose) 54 mls @ 100 mls/hr IV Q8H ON LICENSE OF [facility] Last Infusion: 06/24/20 11:01 Dose: Infused Documented by: Sodium Chloride () 250 mls @ 15 mls/hr IV .[id number] PRN PRN Reason: Saline Flush Sodium Chloride () 250 mls @ 15 mls/hr IV .[id number] PRN PRN Reason: Additional IVPB Infusion Lactated Ringer's () 1,000 mls @ 60 mls/hr IV .[id number] ON LICENSE OF [facility] Last Admin: 06/24/20 10:38 Dose: Not Given Documented by: Levothyroxine Sodium (Synthroid) 50 mcg PO DAILY@0600 ON LICENSE OF [facility] Last Admin: 06/24/20 05:22 Dose: 50 mcg Documented by: Magnesium Chloride (Mag64) 128 mg PO DAILY PRN PRN PRN Reason: Constipation Multivitamins/Minerals (Multivitamin With Minerals (Bkc)) 1 tablet PO DAILY@1200 ON LICENSE OF [facility] Last Admin: 06/24/20 12:19 Dose: 1 tablet Documented by: Ondansetron HCl (Zofran Odt) 4 mg PO Q6H PRN PRN PRN Reason: NAUSEA Last Admin: 06/24/20 12:25 Dose: 4 mg Documented by: Oxycodone HCl (Oxyir) 5 - 10 mg PO Q4H PRN PRN PRN Reason: Pain Score 4-10 Last Admin: 06/24/20 08:51 Dose: 10 mg Documented by: Pantoprazole Sodium (Protonix) 40 mg PO DAILY ON LICENSE OF [facility] Last Admin: 06/24/20 08:53 Dose: 40 mg Documented by: Polyethylene Glycol (Miralax) 17 gm PO DAILY PRN PRN Reason: Constipation Rizatriptan Benzoate (Maxalt) 5 mg PO .X1 PRN PRN PRN Reason: MIGRAINE SYMPTOMS Scopolamine HBr (Transderm-Scop) 1 patch TD Q3D ON LICENSE OF [facility] Stop: 06/24/20 16:01 Last Admin: 06/23/20 15:52 Dose: 1 patch Documented by: Sodium Chloride () 10 - 40 ml IV UD PRN PRN Reason: SALINE FLUSH Last Admin: 06/24/20 10:34 Dose: 10 ml Documented by: Tizanidine HCl (Zanaflex) 4 mg PO DAILY ON LICENSE OF [facility] Last Admin: 06/24/20 08:52 Dose: 4 mg Documented by: Trazodone HCl (Desyrel) 100 mg PO QHS PRN PRN PRN Reason: SLEEP Zonisamide (Zonisamide) 400 mg PO QHS ON LICENSE OF [facility] Last Admin: 06/23/20 22:09 Dose: 400 mg Documented by: Medical Necessity - Tobacco Use Smoking Status: Never smoker Assessment/Plan All Active Problems (Last Reviewed 05/14/20 @ 20:[address] Itz House MD) Abscess, vulva (Resolved) Decubitus ulcer of right buttock (Ruled-out) 1. Rectus diastasis of lower abdomen. 2. Large abdominal panniculus. 3. Intertrigo. 4. Recent excessive weight loss. 5. History of gastric bypass surgery. 6. Excessive skin and subcutaneous tissue Patient complaining of pain and requiring IV pain meds. Operative dressing changed. Incision is dry and intact. Continue to wear abdominal binder for compression. Tony drains draining serosanguineous drainage. Patient complaining of nausea. Encouraged fluids as tolerated. Receiving Clindamycin IV. Will consider possible discharge tomorrow if pain and nausea are under better control.
--- NOTE | 2020-06-24 15:20 | NURSING ---
RN CM Assessment Introduced role of RN CM to patient. Patient is alert, oriented and able to participate in RN CM Assessment. Care providers, pharmacy, and demographics verified. Admit Dx:Abd Panniculectomy Barriers/Issues: None, patient states that both her and her can be taught on wound care. has been to the wound care str before here at [facility]. In network list for DME and HH care agencies provided. PCP: Castro Goldberg Specialists: Neuro[facility], Pain- [facility], [facility] Preferred Pharmacy: [facility] Insurance: [facility] Rx Benefit: Yes LNOK: Chandra Lyn LW/HPOA: None, declines any offered information or completion of services on this admission. Aware can return as an outpatient to complete with social work dept Living Arrangements: Lives with and 14yo dtr in a 2SH, Bedroom on set up. 5 steps to enter home. ADL?s: Independent with ambulation and ADLs Transportation: Both patient and her drive, will transport upon DC DME: [employer] HHC: None SNF: None Goal: Home and unsure of wound care at this time. [facility] has discussed possibilities with Dr House prior to surgery and potential wound vac. Denies any issues, concerns or questions with DC planning at this time. Aware RNCM remains available for any emerging needs. DC PLAN: Home and RNCM to follow for wound care needs. KAHLIL Thompson
--- NOTE | 2020-06-24 15:29 | NURSING ---
IDANIA CM Note: ENCINAS form reviewed with patient in regards to current treatment of abdominal panniculus. Notified patient that outpatient billing is determined by her insurance policy and status during hospital stay is continually reviewed for changes in condition that may warrant inpatient stay. Patient states understanding and signed ENCINAS form. Patient denies any issues, questions or concerns with E[employer]AS form. Original placed in hard chart and patient given a copy. KAHLIL Thompson
[2020-06-24 17:53] VITALS: BP 149/84; PULSE 69; RESP 14; TEMP 36.9; O2SAT 100
[2020-06-24] MEDS: ZONISAMIDE 100 MG CAPSULE 400 MG PO (22:46)
[2020-06-24 23:53] VITALS: BP 150/84; PULSE 78; RESP 16; TEMP 36.8; O2SAT 95
[2020-06-25] MEDS: Acetaminophen 500 MG Tablet 1000 MG PO ×3 (01:05→13:34)
[2020-06-25 05:12] VITALS: BP 130/81; PULSE 70; RESP 16; TEMP 36.7; O2SAT 97
[2020-06-25] MEDS: Levothyroxine 50 MCG Tablet PO (05:19)
[2020-06-25 06:40] VITALS: O2SAT 95
[2020-06-25] MEDS: Gabapentin 100 MG Capsule 200 MG PO ×2 (07:40→13:33)
[2020-06-25] MEDS: Ascorbic Acid 500 MG Tablet PO (07:41)
[2020-06-25 09:11] VITALS: BP 123/75; PULSE 69; RESP 18; TEMP 36.8; O2SAT 98
[2020-06-25] MEDS: Enoxaparin 40 MG/0.4 ML Syringe SC (10:34)
[2020-06-25] MEDS: Docusate Sodium 100 MG Capsule PO (10:35)
[2020-06-25] MEDS: Cyanocobalamin 500 MCG Tablet PO (10:35)
[2020-06-25] MEDS: Pantoprazole Sodium 40 MG Tablet PO (10:35)
[2020-06-25] MEDS: DULoxetine Hcl 60 MG Capsule 120 MG PO (10:35)
[2020-06-25] MEDS: tiZANidine HCl 2 MG Tablet 4 MG PO (10:36)
[2020-06-25] MEDS: Calcium Carb/Vitamin D 1 TABLET Tablet 2 TABLET PO (13:34)
[2020-06-25] MEDS: Multivitamins,Ther W-Minerals Tablet 1 TABLET PO (13:34)
--- NOTE | 2020-06-25 13:35 | PCM.PN.SRG ---
Subjective: Postop #2 Feels better today. Tolerating po analgesia. She is more steady on her feet with ambulation. - Physical Exam Vitals/I&O's: Vital Signs Temp Pulse Resp BP Pulse Ox 98.3 F 69 18 123/75 H 98 06/25/20 09:11 06/25/20 09:11 06/25/20 09:11 06/25/20 09:11 06/25/20 09:11 Oxygen Delivery Method Room Air Weight: 153 lb 0.013 oz Body Mass Index (BMI) 26.2 Intake and Output for Last 24 Hours 06/23/20 06/24/20 06/25/20 23:59 23:59 23:59 Intake Total 1356 / 1806 2748.25 / 3048.25 554 / 554 Output Total 55 / 55 130 / 130 55 / 55 Balance 1301 / 1751 2618.25 / 2918.25 499 / 499 Drainage 130 ml yesterday, 55 ml today. General: Alert, Oriented x3 HEENT: PERRLA, EOMI Oral: Moist Mucosa Neck: Supple Abdomen: Soft, Non-Distended Skin: Incision - abdominal incision dry and intact. No clinical evidence of hematoma. Neurological: Cranial nerves II-XII grossly intact Psych/Mental Status: Normal Affect, Appropriate Current Medications Acetaminophen (Tylenol) 1,000 mg PO Q6 [facility] Last Admin: 06/25/20 13:34 Dose: 1,000 mg Documented by: Ascorbic Acid (Vitamin C) 500 mg PO DAILY@0800 [facility] Last Admin: 06/25/20 07:41 Dose: 500 mg Documented by: Buspirone HCl (Buspar) 15 mg PO BID PRN PRN PRN Reason: ANXIETY Calcium/Vitamin D (Calcium Carb/Vitamin D 1 Tablet Tablet) 2 tablet PO DAILY@1200 [facility] Last Admin: 06/25/20 13:34 Dose: 2 tablet Documented by: Cholecalciferol (Vitamin D (25mcg)) 4,000 unit PO DAILY [facility] Last Admin: 06/25/20 10:35 Dose: 4,000 unit Documented by: Cyanocobalamin (Vitamin B12) 500 mcg PO DAILY [facility] Last Admin: 06/25/20 10:35 Dose: 500 mcg Documented by: Diazepam (Valium) 5 mg PO 4X/DAY PRN PRN PRN Reason: SPASMS Docusate Sodium (Colace) 100 mg PO BID [facility] Last Admin: 06/25/20 10:35 Dose: 100 mg Documented by: Docusate Sodium (Colace) 100 mg PO DAILY PRN PRN PRN Reason: Constipation Duloxetine HCl (Cymbalta) 120 mg PO DAILY [facility] Last Admin: 06/25/20 10:35 Dose: 120 mg Documented by: Enoxaparin Sodium (Lovenox) 40 mg SC DAILY [facility] Last Admin: 06/25/20 10:34 Dose: 40 mg Documented by: Gabapentin (Neurontin) 200 mg PO TIDCM [facility] Last Admin: 06/25/20 13:33 Dose: 200 mg Documented by: Hydromorphone HCl (Dilaudid Inj) 0.5 - 1 mg IV Q3H PRN PRN PRN Reason: Pain Score 6-10 Last Admin: 06/24/20 10:34 Dose: 1 mg Documented by: Clindamycin Phosphate 600 mg/ (Dextrose) 54 mls @ 100 mls/hr IV Q8H [facility] Last Admin: 06/25/20 10:42 Dose: 100 mls/hr Documented by: Sodium Chloride () 250 mls @ 15 mls/hr IV .[id number] PRN PRN Reason: Saline Flush Last Admin: 06/24/20 17:48 Dose: 15 mls/hr Documented by: Sodium Chloride () 250 mls @ 15 mls/hr IV .[id number] PRN PRN Reason: Additional IVPB Infusion Lactated Ringer's () 1,000 mls @ 60 mls/hr IV .[id number] [facility] Last Admin: 06/25/20 03:13 Dose: Not Given Documented by: Levothyroxine Sodium (Synthroid) 50 mcg PO DAILY@0600 [facility] Last Admin: 06/25/20 05:19 Dose: 50 mcg Documented by: Magnesium Chloride (Mag64) 128 mg PO DAILY PRN PRN PRN Reason: Constipation Multivitamins/Minerals (Multivitamin With Minerals (Bkc)) 1 tablet PO DAILY@1200 [facility] Last Admin: 06/25/20 13:34 Dose: 1 tablet Documented by: Ondansetron HCl (Zofran Odt) 4 mg PO Q6H PRN PRN PRN Reason: NAUSEA Last Admin: 06/24/20 12:25 Dose: 4 mg Documented by: Oxycodone HCl (Oxyir) 5 - 10 mg PO Q4H PRN PRN PRN Reason: Pain Score 4-10 Last Admin: 06/24/20 22:53 Dose: 10 mg Documented by: Pantoprazole Sodium (Protonix) 40 mg PO DAILY [facility] Last Admin: 06/25/20 10:35 Dose: 40 mg Documented by: Polyethylene Glycol (Miralax) 17 gm PO DAILY PRN PRN Reason: Constipation Rizatriptan Benzoate (Maxalt) 5 mg PO .X1 PRN PRN PRN Reason: MIGRAINE SYMPTOMS Sodium Chloride () 10 - 40 ml IV UD PRN PRN Reason: SALINE FLUSH Last Admin: 06/24/20 10:34 Dose: 10 ml Documented by: Tizanidine HCl (Zanaflex) 4 mg PO DAILY [facility] Last Admin: 06/25/20 10:36 Dose: 4 mg Documented by: Trazodone HCl (Desyrel) 100 mg PO QHS PRN PRN PRN Reason: SLEEP Zonisamide (Zonisamide) 400 mg PO QHS [facility] Last Admin: 06/24/20 22:46 Dose: 400 mg Documented by: Medical Necessity - Tobacco Use Smoking Status: Never smoker Assessment/Plan All Active Problems (Last Reviewed 05/14/20 @ 20:[address] Itz House MD) Abscess, vulva (Resolved) Decubitus ulcer of right buttock (Ruled-out) 1. Large abdominal panniculus. 2. Abdominal wall skin crease and supraumbilical intertrigo. 3. Recent excessive weight loss. 4. History of gastric bypass surgery. 5. s/p abdominal panniculectomy. Patient is resting comfortably. She is tolerating po analgesia and is more steady with ambulation. Discharge home today. Will remove the drains in the office. Maintain antibiotics (Cleocin) until the drains are removed. Prealbumin was 21.5. Encourage nutritional supplementation with protein to help the healing process. Wrote script for Cleocin until the drains are removed. Wrote scripts for Dilaudid for pain (40 tabs) and for Valium for spasm (30 tabs). Wrote scripts for Phenergan for nausea (30 tabs) and a refill and for Colace for constipation (60 tabs). Continue abdominal binder and continue lifting restriction. Followup office one week.
--- NOTE | 2020-06-25 13:43 | PCM.DC ---
You will use the following diet at home:: No restrictions Discharge Activity: May not drive while taking narcotic pain medications., May Not Shower - until the drains are removed., - - no heavy lifting. wear abdominal binder. May shower in (days): 14 - when the drains are removed. May resume sexual activity in: 10-14 days Weight Bearing Status: Weight bearing as tolerated Lifting Restrictions: 20 lbs. Call your doctor if your incision/area has: Continuous Slow Oozing, Sudden Increased Bleeding, Increased Pain/ Swelling, Increased Redness, Foul Smelling Discharge, Swelling at the incision site Call your doctor if you observe: Fever of 101 or Higher, Coldness, Increased Pain, Shortness of breath, Chest pain, Calf discomfort, Uncontrolled pain Suture Line Care: - - dry dressings daily. Cleanse incision/area with: - - may get incision wet in the shower after the drains are removed. Drain: Suction - moises drain x2 to bulb suction. empty and record output daily. Allergies/Adverse Reactions: Allergies Penicillins [PCN] Allergy (Verified 06/23/20 09:23) Rash RAPID HEARTRATE silicone [Silicone] Allergy (Verified 06/23/20 09:23) Rash hydrochlorothiazide Adverse Reaction (Verified 06/23/20 09:23) Other Bjqgckx-Eai-Bzi Reductase Inhibitor Adverse Reaction (Verified 06/23/20 09:23) Other CRAMPING IN LEGS topiramate [From Topamax] Adverse Reaction (Verified 06/23/20 09:23) Chest tightness Medications to take at Discharge Ergocalciferol [Vitamin D] 4,000 unit PO DAILY 06/19/13 Levothyroxine [Synthroid] 50 mcg PO DAILY 06/19/13 Omeprazole [Prilosec] 40 mg PO DAILY 06/19/13 Biotin 10 mg PO DAILY 12/22/13 Calcium Citrate/Vitamin D3 [Calcium Citrate-Vit D3 Tablet] 6 tab PO DAILY 06/23/17 Cyanocobalamin (Vitamin B-12) [Vitamin B-12] 500 mcg PO DAILY 06/23/17 Tizanidine HCl [Zanaflex] 4 mg PO DAILY 06/23/17 Rizatriptan Benzoate [Maxalt] 5 mg PO .X1 PRN 10/18/18 Ascorbic Acid [Vitamin C] 500 mg PO DAILY@0800 12/25/18 Multivitamin with Minerals [Multiple Vitamin] 1 ea PO DAILY 12/25/18 polyethylene glycol 3350 17 gram/dose oral powder 17 g PO DAILY PRN #119 g 01/04/19 trazodone 50 mg tablet 100 mg PO QHS PRN 04/26/19 zonisamide 100 mg capsule 400 mg PO QHS cap 04/26/19 duloxetine 60 mg capsule,delayed release 120 mg PO DAILY cap 05/14/20 busPIRone [Buspar] 15 mg PO BID PRN 06/13/20 Clindamycin HCl [Cleocin] 300 mg PO TID #42 cap 06/25/20 Diazepam [Valium] 5 mg PO 4X/DAY PRN PRN #30 tab 06/25/20 Docusate Sodium [Colace] 100 mg PO BID #60 cap 06/25/20 HYDROmorphone tablet [Dilaudid] 2 mg PO Q4H PRN PRN 7 Days #40 tab 06/25/20 proMETHazine tablet [Phenergan tablet] 25 mg PO 4X/DAY PRN PRN #30 tab 06/25/20 The following prescriptions were given: Clindamycin HCl [Cleocin] 300 mg PO TID #42 cap Transmission Status: Pending to [place] [id number] Docusate Sodium [Colace] 100 mg PO BID #60 cap Transmission Status: Pending to [place] [id number] HYDROmorphone tablet [Dilaudid] 2 mg PO Q4H PRN PRN 7 Days #40 tab PRN Reason: Pain Score 6-10 Transmission Status: Sent to [place] [id number] proMETHazine tablet [Phenergan tablet] 25 mg PO 4X/DAY PRN PRN #30 tab PRN Reason: Nausea Transmission Status: Pending to [place] [id number] Diazepam [Valium] 5 mg PO 4X/DAY PRN PRN #30 tab PRN Reason: Spasms Transmission Status: Sent to [place] [id number] Primary Care Physician: Ronnell Moreno MD [Primary Care Provider] - Test Results: Test results from this visit will be discussed in further detail at your follow-up appointment, if applicable. Please Follow Up With: Itz House MD When: one week. call [phone] for appt. Proposed Discharge Date: 06/25/20
== END | disposition home or self-care (01) ==
LOC: SDC 08:58 → AC 08:58 → MS3 09:58 → SDC 14:27 → MS3 14:27
PROVIDERS: Anesthesiology; Admitting Provider Surgery; PCP Family Medicine; Referring Provider Surgery; Visit Provider Surgery
PROC: 0JB80ZZ Excision of Abdomen Subcutaneous Tissue and Fascia, Open Approach (ICD-10-PCS; CPT 15830; principal; 2020-06-23 10:15)
DX: E65 Localized adiposity (principal); L30.4 Erythema intertrigo; Z11.59 Encounter for screening for other viral diseases; Z98.84 Bariatric surgery status; K21.9 Gastro-esophageal reflux disease without esophagitis; E03.9 Hypothyroidism, unspecified; E78.2 Mixed hyperlipidemia; I10 Essential (primary) hypertension; F41.9 Anxiety disorder, unspecified; G47.30 Sleep apnea, unspecified; M19.90 Unspecified osteoarthritis, unspecified site; K58.9 Irritable bowel syndrome, unspecified; F32.9 Major depressive disorder, single episode, unspecified; G90.50 Complex regional pain syndrome I, unspecified; Z79.899 Other long term (current) drug therapy; M62.08 Separation of muscle (nontraumatic), other site; R11.0 Nausea; R63.4 Abnormal weight loss; Z68.26 Body mass index [BMI] 26.0-26.9, adult; Z86.718 Personal history of other venous thrombosis and embolism; Z86.2 Personal history of diseases of the blood and blood-forming organs and certain disorders involving the immune mechanism
CPT/HCPCS: 00802; 15830; 36415; 80048; 80076; 84134; 84443; 85027; 85610; 85730; 87635; 88305; 96365; 96366; 96372; 96375; 96376; 99218; 99251; C9803; J7050; J7120; A4216; G0378; G0379; G0463; J2405; U0003

== ENCOUNTER → 2020-07-25 17:41 | Outpatient (CLI) | payer MEDICARE, MEDICAID, SELFPAY | PROVIDERS: PCP Family Medicine; Referring Provider Nurse Practitioner Family; Visit Provider Nurse Practitioner Family | DX: E65 Localized adiposity (principal); L30.4 Erythema intertrigo; T81.89XA Other complications of procedures, not elsewhere classified, initial encounter | CPT/HCPCS: 87070; 87075; 87077; 87186; 87205 ==

== ENCOUNTER → 2020-08-12 10:43 | Outpatient (CLI) | payer MEDICARE, MEDICAID, SELFPAY ==
[2020-08-12 16:08] LABS: Hematocrit 39.9 % (37-47); Hemoglobin 12.7 g/dL (12.0-15.0); Mean Corp Hgb Conc 31.8 g/dL (32-36); Mean Corpuscular Volume 94.3 fL (81-99); Mean Platelet Vol. 11.1 fl (6.2-12.0); Platelet Count 197 K/mm3 (150-450); RBC Distribution Width CV 12.2 % (11.6-14.6); RBC Distribution Width SD 42.5 fl (35.1-43.9); Red Blood Count 4.23 M/mm3 (4.2-5.4); White Blood Count 5.1 K/mm3 (4.4-11.0)
[2020-08-12 16:12] LABS: International Normalized Ratio 1.1; Partial Thromboplast Time 28.6 Seconds (24.1-36.2); Prothrombin Time (Protime)PT. 13.5 SECONDS (11.7-14.9)
[2020-08-12 16:26] LABS: Vitamin B12 671 pg/mL (211-911)
[2020-08-12 16:41] LABS: AST(SGOT) 23 U/L (15-37); Alanine Aminotransfer ALT/SGPT 20 U/L (13-56); Albumin, Serum 3.7 g/dL (3.2-5.0); Alkaline Phosphatase 73 U/L (45-117); Anion Gap 7 (5-15); BUN 10 mg/dL (7-18); BUN/Creat Ratio 13.7 RATIO (10-20); Calcium,Total 8.9 mg/dL (8.5-10.1); Chloride 109 mmol/L (98-107); Creatinine, Serum 0.73 mg/dL (0.55-1.02); EST Glomerular Filtration Rate 92 mL/min (>60); Est Glom Filt Rate - Afr Amer 112 mL/min (>60); Globulin 3.6 g/dL (2.2-4.2); Glucose 63 mg/dL (74-106); Potassium 3.6 mmol/L (3.5-5.1); Prealbumin 27.5 mg/dL (20.0-40.0); Protein, Total 7.3 g/dL (6.4-8.2); Sodium Level 142 mmol/L (136-145); Uric Acid 3.2 mg/dL (2.6-6.0)
[2020-08-12 17:10] LABS: Ferritin 66 ng/mL (8-252)
[2020-08-18 04:21] LABS: Vitamin A, Retinol 56.6 ug/dL (20.1-62.0)
== END ==
PROVIDERS: Surgery; PCP Family Medicine; Referring Provider Nurse Practitioner Family; Visit Provider Nurse Practitioner Family
DX: R63.4 Abnormal weight loss (principal); T81.89XA Other complications of procedures, not elsewhere classified, initial encounter; Z98.84 Bariatric surgery status; L98.7 Excessive and redundant skin and subcutaneous tissue; L30.4 Erythema intertrigo; R55 Syncope and collapse
CPT/HCPCS: 80053; 82306; 82607; 82728; 82746; 84134; 84550; 84590; 85027; 85610; 85730

== ENCOUNTER 2020-09-02 11:14 | Observation (INO) | payer MEDICARE, MEDICAID, SELFPAY ==
--- NOTE | 2020-09-01 23:51 | PCM.HP.BLA ---
History and Physical Date of Admission: 09/02/20 HISTORY OF PRESENT ILLNESS 44 year old woman presents for evaluation of abdominal panniculus and associated abdominal wall skin crease intertrigo that developed after undergoing a gastric bypass procedure 7 years ago at [facility]. Her weight decreased from 299 down to 160 lbs. She also has redundant skin and subcutaneous tissue in the supraumbilical area with associated intertrigo and redundant skin and subcutaneous tissue in her bilateral medial upper thighs with associated pain and intertrigo. For the intertrigo, she uses powders for relief. She denies nausea and vomiting and bloating. We have obtained insurance approval for the panniculectomy as well as the dermolipectomy bilateral upper medial thighs. We proceeded with the abdominal panniculectomy initially on 06/23/20. At this time will proceed with the thigh surgery. PAST MEDICAL HISTORY Rectus diastasis of lower abdomen Excessive skin and subcutaneous tissue Excessive body weight loss Intertrigo Abdominal panniculus Vasodepressor syncope Postural hypotension GERD (gastroesophageal reflux disease) Hypothyroidism Essential hypertension Anemia Anxiety and depression Bone fracture Frequent headaches Heart murmur Hemorrhoids Hypoglycemia Mixed hyperlipidemia RSD (reflex sympathetic dystrophy) Recurrent infections Sleep apnea Tarsal tunnel syndrome Vitamin deficiency Anxiety Arthritis Chronic pain IBS (irritable bowel syndrome) Lumbar spondylolysis Abscess of buttock, right Gallstones History of DVT (deep vein thrombosis) Hives Non-healing ulcer of buttock with fat layer exposed UTI (urinary tract infection) Ulceration, vulva PAST SURGICAL HISTORY excision of lesion foot surgery cholecystectomy gastric bypass hysterectomy I &D right buttock abscess L2-5 medial branch radiofrequency ablation Abdominal panniculectomy - 06/23/20 ALLERGIES Penicillins [PCN] silicone [Silicone] hydrochlorothiazide Zkihyre-Fmt-Ovp Reductase Inhibitor topiramate [From Topamax] MEDICATIONS Ergocalciferol [Vitamin D] Levothyroxine [Synthroid] Omeprazole Biotin Calcium Citrate/Vitamin D3 [Calcium Citrate-Vit D3 Tablet] Cyanocobalamin (Vitamin B-12) [Vitamin B-12] Tizanidine HCl [Zanaflex] Rizatriptan Benzoate [Maxalt] Ascorbic Acid [Vitamin C] Multivitamin with Minerals [Multiple Vitamin] Docusate Sodium [Colace] proMETHazine tablet [Phenergan tablet] polyethylene glycol trazodone zonisamide duloxetine Levaquin FAMILY HISTORY Mother - Diabetes, Cancer, Hypertension, Heart disease, Angina at rest, Arthritis, High cholesterol, Kidney disease Father - Heart disease, Hypertension, Anxiety, Arthritis, High cholesterol, Psychiatric care, Suicide attempt Brother - Hypertension, Asthma, Alcoholism, Anxiety, Arthritis, Psychiatric care, Suicide attempt SOCIAL HISTORY Smoking Status: Never smoker second hand exposure: No alcohol intake: never substance use type: does not use REVIEW OF SYSTEMS General - Denies fever. Has weight loss from gastric bypass of 139 lbs. Has fatigue. Eyes - Denies cataracts and glaucoma. ENT - Denies nasal congestion and sore throat. Endocrine - Has excessive thirst and urination. Has thyroid disease. Has heat/cold intolerance. Skin - Denies suspicious lesions and skin cancer. Has abdominal wall skin crease intertrigo, supraumbilical intertrigo, and medial upper thighs intertrigo. Has abdominal panniculus. Has redundant skin and subcutaneous tissue bilateral upper medial thighs. Musculoskeletal - Has joint pain, joint stiffness, weakness of muscles and joints, back pain, and arthritis. Neuro - Has headaches. Cardiovascular - Denies chest pain, fatigue, and shortness of breath with exertion. Psych - Denies anxiety. Has depression. Has claustrophobia. Respiratory - Denies chronic cough and shortness of breath. Gastrointestinal - Denies nausea, vomiting, diarrhea, and constipation. Hematologic - Denies abnormal bruising and bleeding. Genitourinary - Denies hematuria and urinary frequency. Has incontinence. PHYSICAL EXAMINATION General - Alert and Oriented. Bra size is 38 C. HEENT - PERRL. EOMI. Throat is clear. Neck - Supple and nontender. No cervical adenopathy. Lungs - Clear to auscultation. Heart - Regular rate and rhythm. Abdomen - Soft and nondistended. Has incision from abdominal panniculectomy that is healing except for small wound separation on the left lateral aspect. Treated with Silver dressing changes. Extremities - FROM. No axillary adenopathy. No inguinal adenopathy. Radial pulses are palpable. Has redundant skin and subcutaneous tissue with isolated adiposity bilateral upper medial thighs. Has associated intertrigo. Neuro - CN II-XII grossly intact. Psych - Normal mood and affect. ASSESSMENT 1. History of gastric bypass surgery. 2. Redundant skin and subcutaneous tissue with isolated adiposity bilateral upper medial thighs. 3. Medial thigh intertrigo. 4. Large abdominal panniculus s/p abdominal panniculectomy. 5. Recent excessive weight loss. PLAN She had an abdominal panniculectomy on 06/23/20. Healing has been satisfactory except for small wound openings in the midline which has healed and the left lateral aspect. She is taking Levaquin for cultures that showed Pseudomonas aeroginosa nellyd RAYSHAWN. She would also benefit from a dermolipectomy bilateral upper medial thighs which would improve her symptomatology and minimize persistent intertrigo. Will do the right thigh first, and after healing, will proceed with the left thigh. Doing both thighs at the same time would push the 6 hour time limit for elective surgery. Especially with two separate areas, it is hard to justify the added surgery if she develops a DVT. She already has a history of DVT. Since we don't have two teams that could do both sides on the same day. She didn't want to go out of town for that scenario. She understands the need for two surgeries. The surgery would be done under general anesthesia with a surgical observation overnight stay in the hospital. Will have drains in for several days and be maintained on antibiotics until the drains are removed. Tissue that is removed will be sent to Pathology for analysis. For the medial thighs, will wear compression nicko wraps or a compression garment. Patient was informed of the risks and complications of the procedure including alternatives to surgery. These were discussed with the patient personally. Patient voices understanding and wishes to proceed. Some of the risks and complications were included in a form from the [employer]. She had some remaining preop questions that were answered personally and to her satisfaction. We discussed the current risks associated with COVID-19. While it is understood that there is a community spread of COVID-19, the risk of victorina COVID-19 while at [facility] ([facility]) is very low; however, the risk cannot be completely mitigated because of the community spread of the disease. We discussed in detail the risk of exposure to and/or potential harm posed by the COVID-19 virus with having a surgery/procedure at this time versus the risk of delaying the surgery/procedure. It is not possible to know either the risk of delaying the surgery or procedure or chance of getting an infection with perfect accuracy, but a joint decision was made to proceed at this time with the scheduled surgery/procedure as indicated on the consent form. Patient was notified that we will need to comply with any screening or testing [facility] wishes to perform or that surgery may be delayed for any positive results. Discussed with the patient that I was tested for COVID-19 on 03/13/20 which was negative and on 03/27/20 which was negative and on 04/10/20 which was negative and on 04/24/20 which was negative and on 05/08/20 which was negative and on 05/29/20 which was negative and on 06/19/20 which was negative and on 07/24/20 which was negative and on 08/14/20 which was negative. My testing regimen at this time is to be COVID-19 tested every 2 weeks or so. Procedure Criteria Procedure Type: Elective COVID Risk Discussion: The surgeon/proceduralist and patient have discussed in detail the risk of exposure to and/or potential harm posed by the COVID-19 virus with having a surgery/procedure at this time versus the risk of delaying the surgery/procedure. It is not possible to know either the risk of delaying the surgery or procedure or chance of getting an infection with perfect accuracy, but a joint decision was made between the patient and the surgeon/proceduralist to proceed at this time with the scheduled surgery/procedure as indicated on the consent form.
[2020-09-02] VITALS (11 sets, daily range): BP systolic 108–137; BP diastolic 67–81; PULSE 59–84; RESP 16–18; TEMP 36.2–37.2; O2SAT 96–100; BMI 25.7
[2020-09-02] MEDS: Lactated Ringers 1,000 ML 100 ML IV ×3 (06:40→11:30)
[2020-09-02] MEDS: levoFLOXacin IV 500 MG/100 ML BAG 100 MG IV (06:48)
[2020-09-02] MEDS: Lidocaine 1%/Epi 1:200 (30ml) 30 ML AMPUL (07:20)
--- NOTE | 2020-09-02 07:30 | TISS_PTH ---
PATIENT: ALFONSO TORO LOC: MS3 U#:[id number] AGE/SX: 44/F ROOM: MS319 RE09/02/[address]: Dr. Itz House MD : [id number] BED: 1 DIS: 09/04/2020 SPEC #: [id number] RECD: 09/02/20 12:46 STATUS: FAN REQ #: [id number] LUTHER: 09/02/20 07:[address]: Itz House DEPT: SURGICAL PATHOLOGY RECD BY: Hetal Hameed ENTERED: 09/02/20 13:13 SP TYPE: Tissue Bx [facility] DR: Dr. Ronnell Moreno MD Tissues: Thigh, NOS Procedures: Surgery Specimen Level III HEADER OPERATION: Medial thigh lift right PRE-OP DIAGNOSIS: Redundant skin and subcutaneous tissue with isolated adiposity bilateral upper medial thighs TISSUE SUBMITTED: Right thigh tissue MICROSCOPIC DIAGNOSIS Right thigh tissue: Pieces of skin with underlying adipose tissue, no pathologic diagnosis, clinically redundant skin and subcutaneous tissue. GREG:rasheed 09/03/20 MICROSCOPIC DESCRIPTION Slides are reviewed. GROSS DESCRIPTION Received in fixative is one container labeled with the patient's name and designated right thigh tissue. The specimen consists of four variable sized pieces of hassan-white skin with underlying adipose tissue measuring in aggregate 31 x 15 cm and up to 2 cm in thickness. One of the pieces show a central incision stitched by suture. No skin lesion is identified. Sections do not reveal any mass lesion. Journeyman Operator Assistant sections are submitted in four cassettes. Cassette 1 contains the skin piece. / GREG:rasheed 09/02/20 TC:5 CPT: 75164
--- NOTE | 2020-09-02 11:03 | OP.PCM_ITS ---
Report of Operation Date of Procedure: 09/02/20 Pre-Operative Diagnosis: 1. History of gastric bypass surgery. 2. Redundant skin and subcutaneous tissue with isolated adiposity bilateral upper medial thighs. 3. Medial thigh intertrigo. 4. Large abdominal panniculus s/p abdominal panniculectomy. 5. Recent excessive weight loss. Post-Operative Diagnosis: Same. Surgery/Procedure Performed:: Dermolipectomy right medial thigh. Description of Surgical Findings:: 44 year old woman presents for evaluation of abdominal panniculus and associated abdominal wall skin crease intertrigo that developed after undergoing a gastric bypass procedure 7 years ago at [facility]. Her weight decreased from 299 down to 160 lbs. She also has redundant skin and subcutaneous tissue in the supraumbilical area with associated intertrigo and redundant skin and subcutaneous tissue in her bilateral medial upper thighs with associated pain and intertrigo. For the intertrigo, she uses powders for relief. She denies nausea and vomiting and bloating. We have obtained insurance approval for the panniculectomy as well as the dermolipectomy bilateral upper medial thighs. We proceeded with the abdominal panniculectomy initially on 06/23/20. At this time will proceed with the thigh surgery. Patient was informed of the risks and complications of the procedure including alternatives to surgery. These were discussed with the patient personally. Patient voices understanding and wishes to proceed. Some of the risks and complications were included in a form from the [employer]. IV Fluids - 2000 ml. Urine Output - 250 ml. I used AmnioFill Placental Connective Tissue Powder, 500 mg. Catalog Number - [id number]. Lot Number - [id number]. Expiration - February 10, 2025. I used Luisana absorbable hemostat, (I used 2 vials). Reference Number - [id number]. Lot Number - [id number]. Expiration - March 09, 2025. I used 450 ml Tumescent Anesthetic Solution 0.05%. Normal Saline- 936.5 ml. Lidocaine 1% - 50 ml. Epinephrine (1 mg/ml) - 1 ml. Sodium Bicarbonate - 12.5 mEq I removed 150 ml fatty aspirate from the distal medial thigh and knee area. student services rep: Chidi Membreno. Type of Anesthesia:: General Specimen's removed: Right medial thigh tissue to Pathology. Drains: Tony x2. Estimated Blood Loss (mL): 50 ml. Fluids Replaced: 2250 ml (IV Fluids 2000 ml, Urine Output 250 ml). Description of Procedure: In the preop area, the patient was placed in the standing position, preoperative markings were made. The medial thigh crease in the crural area was marked. I then marked the area of excess skin and adiposity in the medial thigh area. The patient was taken to the operating room and placed in the supine position, and placed under general anesthesia and her right thigh was prepped and draped in usual fashion. SCDs were placed for DVT prophylaxis. A Lion catheter was then placed. Perioperative antibiotics were given intravenously. The right thigh was then frog-legged into position. For the procedure, I wore an N95 mask and wore proper eyewear protection. I then proceeded with excising the excess skin and isolated adiposity in the right medial thigh area by excising a vertical ellipse of skin down through the subcutaneous tissue from the medial thigh crease and crural area down to the distal medial thigh by the knee. Dissection was carried down to the fascia. Care was taken to avoid the saphenous vein. After I removed the skin and subcutaneous tissue, I then temporarily tacked the skin together to see what the final contouring looked like. I felt I could remove some more skin and so I extended the ellipse a little bit further, both anteriorly and inferiorly. When I felt I had a good contouring without too much tension on the closure, I marked the additional suture markings with a skin marker and this extra skin and subcutaneous tissue was excised. Hemostasis was obtained using electrocautery. When I got more proximally, I was more superficial by the inguinal area to minimize too deep of dissection in the femoral triangle area. I then placed 2 size 15 Tony drains through separate stab incisions inferiorly, (anterior and posterior) to the incision and secured to the skin using 3-0 nylon sutures. I irrigated the wound with Irrisept 0.05% Chlorhexidine solution followed by saline irrigation. I then sprayed Luisana absorbable hemostat into the right medial thigh wound. I used 2 vials.. In the proximal wound in the medial crural area is an area of the vertical incision intersecting with a horizontal incision in the lateral inguinal area that can sometimes develop suboptimal healing. I placed AmnioFill Placental Connective Tissue Powder in this are to help with the healing process. I used 500 mg. For the inferior wound area in the distal medial thigh area, there was some additional fullness involving subcutaneous tissue. I didn't want to extend the longitudinal incision into the knee area. So I used power assisted lipoplasty to help with the contouring in this area. I used the existing wound for the infiltration of the tumescent solution into the right distal medial thigh by the knee. I infiltrated about 450 mL into the area. I then used a power-assisted lipoplasty and removed about 150 mL of fatty aspirate from the distal medial thigh by the knee. I stopped when there was minimal friction and the areas felt clinically smooth and started developing some blood in the aspirate. I started closing the wound from distal to proximal. I first closed the superficial fascia using 2-0 Vicryl [id number]-ww-atkoc interrupted sutures. As I went from distal to proximal any additional skin that needed to be excised was removed in a piecemeal fashion. I didn't want to excise too much at one time because of the risk of difficulty closing the wound secondary to swelling. When I got close to the proximal wound in the inguinal area, I performed a tightening suture with a 2-0 Vicryl sfrard-jj-nbnwy interrupted suture through Colles fascia in the ischiopubic rami at the area of the adductor muscles. This was placed in the fascia and periosteal area of the ischiopubic ramus through the deep Colles fascia of the proximal skin flap. This was an anchoring suture to minimize the thigh from developing ptosis in the future. At this point, there were some dog ears that I extended in the inguinal crease laterally and superiorly. The excess skin was excised and the deeper fascia was approximated using 2-0 Vicryl tbtjhv-ue-fjfwz interrupted sutures. The deep dermis and subcutaneous tissue was approximated using 3-0 Monocryl interrupted sutures. I then closed the rest of the vertical incision up to the inguinal crease using 2-0 Vicryl pemkrh-wr-igspl interrupted sutures for the underlying deeper fascia followed by the deep dermis and subcutaneous tissue with 2-0 Vicryl interrupted sutures and 3-0 Monocryl interrupted sutures. The skin was approximated using 4-0 Prolene vertical mattress interrupted sutures for the inguinal skin crease as well as the proximal portion of the vertical incision. The vertical incision was approximated with 3-0 V lock unidirectional barbed running subcuticular suture. Good contouring was noted with the closure not being under too much tension. At the end of the procedure, no hematomas were noted. No vascular compromise was noted after the excess tissue was removed. I then placed a Histoacryl skin tissue adhesive on the incisions followed by Kerlix gauze on the incision followed by the compression Roddy wrap. Patient tolerated the procedure well and was sent to PACU in satisfactory condition. Patient will be sent upstairs for continued postop care.She will be sent home when she is tolerating po analgesia and steady on her feet with ambulation. The Lion catheter will be removed in approximately 2 weeks. Grafts/Implants Used: AmnioFill Placental Connective Tissue Powder, Luisana. - Complications None. - Admit VTE Documentation VTE Present on Admission: No VTE Mechan Device Prophylaxis: SCD's VTE Pharm Prophylaxis ordered?: Yes Surgery Charges CPT - 98194-67 ICD-10 - Z98.84, L98.7, L30.4, E65, R63.4
[2020-09-02] MEDS: HYDROmorphone 1 MG/ML Syringe IV ×2 (14:09→19:51)
[2020-09-02] MEDS: diazePAM 5 MG Tablet PO ×2 (15:18→23:10)
[2020-09-02] MEDS: oxyCODONE 5 MG Tablet 10 MG PO ×2 (15:18→23:01)
[2020-09-02] MEDS: Lactated Ringers 1,000 ML 60 ML IV (16:46)
[2020-09-02] MEDS: 0.9% Saline Lock 10 ML Syringe IV (19:52)
[2020-09-02] MEDS: Docusate Sodium 100 MG Capsule PO (23:01)
[2020-09-02] MEDS: traZODone 50 MG Tablet 100 MG PO (23:01)
[2020-09-03 04:00] VITALS: BP 106/67; PULSE 73; RESP 16; TEMP 36.9; O2SAT 100
[2020-09-03] MEDS: oxyCODONE 5 MG Tablet 10 MG PO ×3 (04:12→19:30)
[2020-09-03] MEDS: 0.9% Saline Lock 10 ML Syringe IV (06:20)
[2020-09-03] MEDS: HYDROmorphone 1 MG/ML Syringe IV ×2 (06:20→15:14)
[2020-09-03] MEDS: Levothyroxine 50 MCG Tablet PO (06:20)
[2020-09-03] MEDS: Enoxaparin 40 MG/0.4 ML Syringe SC (06:20)
[2020-09-03 06:31] LABS: Hematocrit 35.7 % (37-47); Hemoglobin 11.8 g/dL (12.0-15.0); Mean Corp Hgb Conc 33.1 g/dL (32-36); Mean Corpuscular Hgb 30.5 pg (27.0-32.0); Mean Corpuscular Volume 92.2 fL (81-99); Mean Platelet Vol. 10.6 fl (6.2-12.0); Platelet Count 147 K/mm3 (150-450); RBC Distribution Width CV 13.2 % (11.6-14.6); RBC Distribution Width SD 43.8 fl (35.1-43.9); Red Blood Count 3.87 M/mm3 (4.2-5.4); White Blood Count 9.2 K/mm3 (4.4-11.0)
[2020-09-03 07:02] LABS: Anion Gap 6 (5-15); BUN 9 mg/dL (7-18); BUN/Creat Ratio 16.3 RATIO (10-20); Calcium,Total 8.2 mg/dL (8.5-10.1); Chloride 111 mmol/L (98-107); Creatinine, Serum 0.55 mg/dL (0.55-1.02); EST Glomerular Filtration Rate 127 mL/min (>60); Est Glom Filt Rate - Afr Amer 154 mL/min (>60); Glucose 85 mg/dL (74-106); Potassium 3.3 mmol/L (3.5-5.1); Prealbumin 20.3 mg/dL (20.0-40.0); Sodium Level 142 mmol/L (136-145)
[2020-09-03] MEDS: DULoxetine Hcl 60 MG Capsule 120 MG PO (08:55)
[2020-09-03] MEDS: Docusate Sodium 100 MG Capsule PO ×2 (08:55→21:59)
[2020-09-03] MEDS: Pantoprazole Sodium 40 MG Tablet PO (08:55)
[2020-09-03 09:00] VITALS: BP 109/68; PULSE 78; RESP 16; TEMP 36.5; O2SAT 100
[2020-09-03] MEDS: Lactated Ringers 1,000 ML 60 ML IV (09:02)
[2020-09-03] MEDS: diazePAM 5 MG Tablet PO ×2 (09:02→21:59)
[2020-09-03] MEDS: levoFLOXacin IV 500 MG/100 ML BAG 100 MG IV (09:14)
--- NOTE | 2020-09-03 11:52 | NURSING ---
RNCM ENCINAS Note: ENCINAS form reviewed with patient in regards to her current treatment during this hospital stay. Notified patient that outpatient billing is determined by her insurance policy and status during this stay is reviewed for changes in condition that may warrant inpatient stay. Patient states understanding and form was signed. No further questions. KAHLIL Thompson
--- NOTE | 2020-09-03 14:21 | PN.SURG_ITS ---
Subjective: Postop #1 Patient complains of incisional pain. Still needs IV analgesia. - Physical Exam Vitals/I&O's: Vital Signs Temp Pulse Resp BP Pulse Ox 97.7 F L 78 16 109/68 100 09/03/20 09:00 09/03/20 09:00 09/03/20 09:00 09/03/20 09:00 09/03/20 09:00 Oxygen Flow Rate (L/min) 5 Oxygen Delivery Method Room Air Weight: 145 lb 1.027 oz Body Mass Index (BMI) 25.7 Intake and Output for Last 24 Hours 09/01/20 09/02/20 09/03/20 23:59 23:59 23:59 Intake Total 2821.33 / 3471.33 2840 / 2840 Output Total 1130 / 2400 3125 / 3125 Balance 1691.33 / 1071.33 -285 / -285 Drainage 30 ml yesterday General: Alert, Oriented x3 HEENT: PERRLA, EOMI Oral: Moist Mucosa Neck: Supple Abdomen: Soft, Non-Distended Skin: Incision - right medial thigh incision dry and intact. No clinical evidence of hematoma. Redressed with Kerlix gauze and compression nicko wrap. Neurological: Cranial nerves II-XII grossly intact Psych/Mental Status: Normal Affect, Appropriate Microbiology Past 72 Hours 09/01/20 13:00 Interface Orders SARS-CoV-2 Antigen (Rapid) - Final Laboratory Results 09/03/20 06:00: WBC 9.2, RBC 3.87 L, Hgb 11.8 L, Hct 35.7 L, MCV 92.2, MCH 30.5, MCHC 33.1, RDW Std Deviation 43.8, RDW Coeff of [place] 13.2, Plt Count 147 L, MPV 10.6 09/03/20 06:00: Sodium 142, Potassium 3.3 L, Chloride 111 H, Carbon Dioxide 25.0, Anion Gap 6, BUN 9, Creatinine 0.55, Estim Creat Clear Calc 109.10, Est GFR (MDRD) Af Amer 154, Est GFR (MDRD) Non-Af 127, BUN/Creatinine Ratio 16.3, Glucose 85, Calcium 8.2 L, Prealbumin 20.3 Current Medications Diazepam (Diazepam 5 Mg Tablet) 5 mg PO 4X/DAY PRN PRN PRN Reason: SPASMS Last Admin: 09/03/20 09:02 Dose: 5 mg Documented by: Docusate Sodium (Docusate Sodium 100 Mg Capsule) 100 mg PO BID [facility] Last Admin: 09/03/20 08:55 Dose: 100 mg Documented by: Duloxetine HCl (Duloxetine Hcl 60 Mg Capsule) 120 mg PO DAILY [facility] Last Admin: 09/03/20 08:55 Dose: 120 mg Documented by: Enoxaparin Sodium (Enoxaparin 40 Mg/0.4 Ml Syringe) 40 mg SC DAILY@0600 [facility] Last Admin: 09/03/20 06:20 Dose: 40 mg Documented by: Hydromorphone HCl (Hydromorphone 1 Mg/Ml Syringe) 1 mg IV Q4H PRN PRN PRN Reason: Pain Score 6-10 Last Admin: 09/03/20 06:20 Dose: 1 mg Documented by: Lactated Ringer's () 1,000 mls @ 60 mls/hr IV .[id number] [facility] Last Infusion: 09/03/20 10:14 Dose: 60 mls/hr Documented by: Levofloxacin (Levaquin Iv) 500 mg in 100 mls @ 100 mls/hr IV Q24 [facility] Last Infusion: 09/03/20 10:14 Dose: Infused Documented by: Sodium Chloride () 250 mls @ 15 mls/hr IV .[id number] PRN PRN Reason: Saline Flush Levothyroxine Sodium (Levothyroxine 50 Mcg Tablet) 50 mcg PO DAILY@0600 [facility] Last Admin: 09/03/20 06:20 Dose: 50 mcg Documented by: Nutritional Formula (Nutritional Supplement (Karl) Packet) 1 packet PO BIDCM [facility] Last Admin: 09/03/20 08:54 Dose: 1 packet Documented by: Ondansetron HCl (Ondansetron 4 Mg/2 Ml Vial) 4 mg IV Q6H PRN PRN PRN Reason: NAUSEA Oxycodone HCl (Oxycodone 5 Mg Tablet) 10 mg PO Q4H PRN PRN PRN Reason: Pain Score 4-5 Last Admin: 09/03/20 09:02 Dose: 10 mg Documented by: Pantoprazole Sodium (Pantoprazole Sodium 40 Mg Tablet) 40 mg PO DAILY [facility] Last Admin: 09/03/20 08:55 Dose: 40 mg Documented by: Promethazine HCl (Promethazine 25 Mg Tablet) 25 mg PO Q4H PRN PRN PRN Reason: NAUSEA/VOMITING Sodium Chloride (0.9% Saline Lock 10 Ml Syringe) 10 - 40 ml IV UD PRN PRN Reason: SALINE FLUSH Last Admin: 09/03/20 06:20 Dose: 10 ml Documented by: Trazodone HCl (Trazodone 50 Mg Tablet) 100 mg PO QHS PRN PRN Reason: SLEEP Last Admin: 09/02/20 23:01 Dose: 100 mg Documented by: Zonisamide (Zonisamide 100 Mg Capsule) 400 mg PO QHS [facility] Medical Necessity - Tobacco Use Smoking Status: Never smoker Assessment/Plan All Active Problems (Last Reviewed 08/29/20 @ 19:[address] Itz House MD) Nonhealing surgical wound (Acute) Abscess, vulva (Resolved) Decubitus ulcer of right buttock (Ruled-out) 1. History of gastric bypass surgery. 2. Redundant skin and subcutaneous tissue with isolated adiposity bilateral upper medial thighs. 3. Medial thigh intertrigo. 4. Large abdominal panniculus s/p abdominal panniculectomy. 5. Recent excessive weight loss. 6. s/p dermolipectomy right medial thigh. 7. Hypopotassiumemia. 8. Nonhealing ulcer left abdominal wall. Right medial thigh incision is dry and intact. Nonhealing ulcer left abdominal wall is stable. Redressed with Silver dressing changes daily. Continue compression dressing. Patient did not get out of bed last night. Encourage ambulation with assist. She needs to be steady on her feet with ambulation before discharge. Anticipate discharge tomorrow. Also will need to be tolerating po analgesia at discharge. Continue Levaquin antibiotics until the drains are removed. Prealbumin was 20.3. Encourage nutritional supplementation with protein to help the healing process. Potassium was little low at 3.3. Will start Potassium supplementation and recheck in the morning. Will discharge home with the lyon catheter and remove as an outpatient
[2020-09-03 15:10] VITALS: BP 112/70; PULSE 79; RESP 18; TEMP 36.7; O2SAT 99
[2020-09-03 19:43] VITALS: BP 116/74; PULSE 80; RESP 14; TEMP 36.4; O2SAT 100
[2020-09-03] MEDS: traZODone 50 MG Tablet 100 MG PO (21:59)
[2020-09-03] MEDS: ZONISAMIDE 100 MG CAPSULE 400 MG PO (22:03)
[2020-09-04 02:00] VITALS: BP 103/66; PULSE 68; RESP 14; TEMP 36.6; O2SAT 98
[2020-09-04] MEDS: oxyCODONE 5 MG Tablet 10 MG PO ×3 (02:09→15:01)
[2020-09-04] MEDS: Lactated Ringers 1,000 ML 60 ML IV (02:12)
[2020-09-04 05:22] LABS: Hematocrit 31.8 % (37-47); Hemoglobin 10.7 g/dL (12.0-15.0); Mean Corp Hgb Conc 33.6 g/dL (32-36); Mean Corpuscular Hgb 31.1 pg (27.0-32.0); Mean Corpuscular Volume 92.4 fL (81-99); Mean Platelet Vol. 10.4 fl (6.2-12.0); Platelet Count 135 K/mm3 (150-450); Red Blood Count 3.44 M/mm3 (4.2-5.4); White Blood Count 6.9 K/mm3 (4.4-11.0)
[2020-09-04 05:38] LABS: Anion Gap 5 (5-15); BUN 13 mg/dL (7-18); Calcium,Total 7.9 mg/dL (8.5-10.1); Chloride 108 mmol/L (98-107); Creatinine, Serum 0.52 mg/dL (0.55-1.02); EST Glomerular Filtration Rate 137 mL/min (>60); Est Glom Filt Rate - Afr Amer 165 mL/min (>60); Estimated Creatinine Clearance 115.39 ml/min; Glucose 82 mg/dL (74-106); Potassium 3.5 mmol/L (3.5-5.1); Sodium Level 139 mmol/L (136-145)
[2020-09-04] MEDS: Enoxaparin 40 MG/0.4 ML Syringe SC (06:01)
[2020-09-04] MEDS: Levothyroxine 50 MCG Tablet PO (06:01)
[2020-09-04 08:19] VITALS: BP 113/69; PULSE 64; RESP 16; TEMP 36.9; O2SAT 97
[2020-09-04] MEDS: Pantoprazole Sodium 40 MG Tablet PO (08:46)
[2020-09-04] MEDS: Docusate Sodium 100 MG Capsule PO (08:47)
[2020-09-04] MEDS: DULoxetine Hcl 60 MG Capsule 120 MG PO (08:47)
[2020-09-04] MEDS: levoFLOXacin IV 500 MG/100 ML BAG 100 MG IV (10:17)
--- NOTE | 2020-09-04 12:58 | PN.SURG_ITS ---
Subjective: Post op day #2 Sitting up in chair. States pain is controlled. - Physical Exam Vitals/I&O's: Vital Signs Temp Pulse Resp BP Pulse Ox 98.4 F 64 16 113/69 97 09/04/20 08:19 09/04/20 08:19 09/04/20 08:19 09/04/20 08:19 09/04/20 08:19 Oxygen Flow Rate (L/min) 5 Oxygen Delivery Method Room Air Weight: 145 lb 1.027 oz Body Mass Index (BMI) 25.7 Intake and Output for Last 24 Hours 09/02/20 09/03/20 09/04/20 23:59 23:59 23:59 Intake Total 2821.33 / 3471.33 3340 / 3740 1558 / 1558 Output Total 1130 / 2400 3450 / 3800 1600 / 1600 Balance 1691.33 / 1071.33 -110 / -60 -42 / -42 JAMIR drains put out 100 cc total from both of them for the past 24 hours. General: Alert, Oriented x3, Cooperative HEENT: Atraumatic Oral: Moist Mucosa Lungs: Normal air movement Cardiovascular: Regular rate Abdomen: Soft Extremities: Capillary Refill Less than 3 Seconds, Peripheral Pulses Normal Skin: Ulcer/ Wound - Right thigh incision is dry and intact. Dressing dry and intact. ADELAIDE wrap for compression. Musculoskeletal: No Tenderness to Palpation of Joints or Extremities Neurological: Cranial nerves II-XII grossly intact Psych/Mental Status: Normal Affect, Appropriate Microbiology Past 72 Hours 09/01/20 13:00 Interface Orders SARS-CoV-2 Antigen (Rapid) - Final Laboratory Results 09/04/20 05:10: WBC 6.9, RBC 3.44 L, Hgb 10.7 L, Hct 31.8 L, MCV 92.4, MCH 31.1, MCHC 33.6, RDW Std Deviation 44.0 H, RDW Coeff of [place] 13.0, Plt Count 135 L, MPV 10.4 09/04/20 05:10: Sodium 139, Potassium 3.5, Chloride 108 H, Carbon Dioxide 26.0, Anion Gap 5, BUN 13, Creatinine 0.52 L, Estim Creat Clear Calc 115.39, Est GFR (MDRD) Af Amer 165, Est GFR (MDRD) Non-Af 137, BUN/Creatinine Ratio 25.0 H, Glucose 82, Calcium 7.9 L Current Medications Diazepam (Diazepam 5 Mg Tablet) 5 mg PO 4X/DAY PRN PRN PRN Reason: SPASMS Last Admin: 09/03/20 21:59 Dose: 5 mg Documented by: Docusate Sodium (Docusate Sodium 100 Mg Capsule) 100 mg PO BID [facility] Last Admin: 09/04/20 08:47 Dose: 100 mg Documented by: Duloxetine HCl (Duloxetine Hcl 60 Mg Capsule) 120 mg PO DAILY [facility] Last Admin: 09/04/20 08:47 Dose: 120 mg Documented by: Enoxaparin Sodium (Enoxaparin 40 Mg/0.4 Ml Syringe) 40 mg SC DAILY@0600 [facility] Last Admin: 09/04/20 06:01 Dose: 40 mg Documented by: Hydromorphone HCl (Hydromorphone 1 Mg/Ml Syringe) 1 mg IV Q4H PRN PRN PRN Reason: Pain Score 6-10 Last Admin: 09/03/20 15:14 Dose: 1 mg Documented by: Lactated Ringer's () 1,000 mls @ 60 mls/hr IV .[id number] [facility] Last Admin: 09/04/20 02:12 Dose: 60 mls/hr Documented by: Levofloxacin (Levaquin Iv) 500 mg in 100 mls @ 100 mls/hr IV Q24 [facility] Last Admin: 09/04/20 10:17 Dose: 100 mls/hr Documented by: Sodium Chloride () 250 mls @ 15 mls/hr IV .[id number] PRN PRN Reason: Saline Flush Levothyroxine Sodium (Levothyroxine 50 Mcg Tablet) 50 mcg PO DAILY@0600 [facility] Last Admin: 09/04/20 06:01 Dose: 50 mcg Documented by: Ondansetron HCl (Ondansetron 4 Mg/2 Ml Vial) 4 mg IV Q6H PRN PRN PRN Reason: NAUSEA Oxycodone HCl (Oxycodone 5 Mg Tablet) 10 mg PO Q4H PRN PRN PRN Reason: Pain Score 4-5 Last Admin: 09/04/20 08:47 Dose: 10 mg Documented by: Pantoprazole Sodium (Pantoprazole Sodium 40 Mg Tablet) 40 mg PO DAILY [facility] Last Admin: 09/04/20 08:46 Dose: 40 mg Documented by: Potassium Chloride (Potassium Chloride 20 Meq Tablet) 20 meq PO BIDCM [facility] Last Admin: 09/04/20 08:46 Dose: 20 meq Documented by: Promethazine HCl (Promethazine 25 Mg Tablet) 25 mg PO Q4H PRN PRN PRN Reason: NAUSEA/VOMITING Sodium Chloride (0.9% Saline Lock 10 Ml Syringe) 10 - 40 ml IV UD PRN PRN Reason: SALINE FLUSH Last Admin: 09/03/20 06:20 Dose: 10 ml Documented by: Trazodone HCl (Trazodone 50 Mg Tablet) 100 mg PO QHS PRN PRN Reason: SLEEP Last Admin: 09/03/20 21:59 Dose: 100 mg Documented by: Zonisamide (Zonisamide 100 Mg Capsule) 400 mg PO QHS [facility] Last Admin: 09/03/20 22:03 Dose: 400 mg Documented by: Medical Necessity - Tobacco Use Smoking Status: Never smoker Assessment/Plan All Active Problems (Last Reviewed 08/29/20 @ 19:[address] Itz House MD) Nonhealing surgical wound (Acute) Abscess, vulva (Resolved) Decubitus ulcer of right buttock (Ruled-out) 1. History of gastric bypass surgery. 2. Redundant skin and subcutaneous tissue with isolated adiposity bilateral upper medial thighs. 3. Medial thigh intertrigo. 4. Large abdominal panniculus s/p abdominal panniculectomy. 5. Recent excessive weight loss. Post op from Dermolipectomy right medial thigh. Patient is doing well. She states her pain is controlled with oral pain meds. She states she is ambulating well. Right thigh incision is dry and intact. Dressing dry and intact. ADELAIDE wrap for compression. She continues to have a Lion catheter to prevent the incision from getting wet - she will be discharged home with the catheter. Tony drains draining a total of 100 cc over the past 24 hours. She will be discharged home with the Tony drains. They will be removed in the office at a later time. She will be discharged home today. She will follow up in the office next week.
[2020-09-04 14:41] VITALS: BP 120/69; PULSE 88; RESP 16; TEMP 36.7; O2SAT 97
[2020-09-04] MEDS: proMETHazine 25 MG Tablet PO (15:01)
--- NOTE | 2020-09-04 15:33 | DCINST_ITS ---
You will use the following diet at home:: No restrictions, Other - encourage nutritional supplementation with protein to help the healing process. Discharge Activity: May Not Drive, May Not Shower - until the drains are removed. May shower in (days): 14 - after the drains are removed. May resume sexual activity in: 10-14 days Weight Bearing Status: Weight bearing as tolerated Keep extremity elevated above heart level: Right Leg Call your doctor if your incision/area has: Continuous Slow Oozing, Sudden Increased Bleeding, Increased Pain/ Swelling, Increased Redness, Foul Smelling Discharge, Swelling at the incision site Call your doctor if you observe: Fever of 101 or Higher, Coldness, Increased Pain, Shortness of breath, Chest pain, Calf discomfort, Uncontrolled pain Suture Line Care: - - dry dressing daily followed by compression nicko wrap. Change Dressing in (Days):: 1 - dry dressing daily followed by compression nicko wrap. Cleanse incision/area with: - Catheter: Lion to leg bag - will remove after the drains are removed. Drain: Suction - moises drain x2 to bulb suction. empty and record output daily. Allergies/Adverse Reactions: Allergies Penicillins [PCN] Allergy (Verified 09/02/20 06:17) Rash RAPID HEARTRATE silicone [Silicone] Allergy (Verified 09/02/20 06:17) Rash hydrochlorothiazide Adverse Reaction (Verified 09/02/20 06:17) Other Hmbasvx-Jgo-Oez Reductase Inhibitor Adverse Reaction (Verified 09/02/20 06:17) Other CRAMPING IN LEGS topiramate [From Topamax] Adverse Reaction (Verified 09/02/20 06:17) Chest tightness Medications to take at Discharge Ergocalciferol [Vitamin D] 4,000 unit PO DAILY 06/19/13 Levothyroxine [Synthroid] 50 mcg PO DAILY 06/19/13 Omeprazole [Prilosec] 40 mg PO DAILY 06/19/13 Biotin 10 mg PO DAILY 12/22/13 Calcium Citrate/Vitamin D3 [Calcium Citrate-Vit D3 Tablet] 6 tab PO DAILY 06/23/17 Cyanocobalamin (Vitamin B-12) [Vitamin B-12] 500 mcg PO DAILY 06/23/17 Tizanidine HCl [Zanaflex] 4 mg PO DAILY 06/23/17 Rizatriptan Benzoate [Maxalt] 5 mg PO .X1 PRN 02/06/19 Ascorbic Acid [Vitamin C] 500 mg PO DAILY@0800 12/25/18 Multivitamin with Minerals [Multiple Vitamin] 1 ea PO DAILY 12/25/18 polyethylene glycol 3350 17 gram/dose oral powder 17 g PO DAILY PRN #119 g 01/04/19 trazodone 50 mg tablet 100 mg PO QHS PRN 04/26/19 zonisamide 100 mg capsule 400 mg PO QHS cap 04/26/19 duloxetine 60 mg capsule,delayed release 120 mg PO DAILY cap 05/14/20 busPIRone [Buspar] 15 mg PO BID PRN 06/13/20 docusate sodium 100 mg capsule 100 mg PO BID #60 cap 07/25/20 promethazine 25 mg tablet 25 mg PO TID PRN #30 tab 08/12/20 Diazepam [Valium] 5 mg PO 4X/DAY PRN PRN #30 tablet 09/04/20 Docusate Sodium [Colace] 100 mg PO BID cap 09/04/20 Gabapentin [Neurontin] 100 mg PO BIDCM #60 cap 09/04/20 HYDROmorphone tablet [Dilaudid] 2 mg PO Q4H PRN PRN 7 Days #40 tablet 09/04/20 levoFLOXacin tablet [Levaquin tablet] 500 mg PO DAILY 14 Days #14 tab 09/04/20 proMETHazine tablet [Phenergan tablet] 25 mg PO Q4H PRN PRN tab 09/04/20 The following prescriptions were given: HYDROmorphone tablet [Dilaudid] 2 mg PO Q4H PRN PRN 7 Days #40 tablet PRN Reason: Pain Score 6-10 Transmission Status: Received by [address] Gabapentin [Neurontin] 100 mg PO BIDCM #60 cap Transmission Status: Pending to [address] Diazepam [Valium] 5 mg PO 4X/DAY PRN PRN #30 tablet PRN Reason: Spasms Transmission Status: Received by [address] Primary Care Physician: Ronnell Moreno MD [Primary Care Provider] - Test Results: Test results from this visit will be discussed in further detail at your follow- up appointment, if applicable. Please Follow Up With: Itz House MD When: one week. call [phone] for appt. Proposed Discharge Date: 09/04/20
== END 2020-09-04 16:42 | disposition home or self-care (01) ==
LOC: SDC 12:04 → MS3 12:04
PROVIDERS: Admitting Provider Surgery; PCP Family Medicine; Referring Provider Surgery; Visit Provider Surgery
PROC: (CPT 15832; principal; 2020-09-02 07:15)
DX: L98.7 Excessive and redundant skin and subcutaneous tissue (principal); L30.4 Erythema intertrigo; Z98.84 Bariatric surgery status; E65 Localized adiposity; Z20.828 Contact with and (suspected) exposure to other viral communicable diseases; Z23 Encounter for immunization; K21.9 Gastro-esophageal reflux disease without esophagitis; E03.9 Hypothyroidism, unspecified; G47.30 Sleep apnea, unspecified; M19.90 Unspecified osteoarthritis, unspecified site; E78.2 Mixed hyperlipidemia; F32.9 Major depressive disorder, single episode, unspecified; F41.9 Anxiety disorder, unspecified; I10 Essential (primary) hypertension; K58.9 Irritable bowel syndrome, unspecified; Z79.899 Other long term (current) drug therapy; Z86.718 Personal history of other venous thrombosis and embolism; G25.81 Restless legs syndrome; G43.909 Migraine, unspecified, not intractable, without status migrainosus
CPT/HCPCS: 00400; 15832; 36415; 80048; 84134; 85027; 87426; 88304; 88305; 96361; 96365; 96366; 96372; 96375; 96376; 99218; C9803; J7030; J7120; 90686; A4216; G0378; G0379; J2405

== ENCOUNTER 2020-11-04 11:30 | Observation (INO) | payer MEDICARE, MEDICAID, SELFPAY ==
[2020-11-03 12:09] LABS: AST(SGOT) 22 U/L (15-37); Alanine Aminotransfer ALT/SGPT 17 U/L (13-56); Albumin, Serum 3.6 g/dL (3.2-5.0); Alkaline Phosphatase 81 U/L (45-117); Bilirubin, Direct 0.15 mg/dL (0.00-0.30); Globulin 3.6 g/dL (2.2-4.2); Protein, Total 7.2 g/dL (6.4-8.2); Thyroid Stim Hormone (TSH) 2.09 uIU/mL (0.358-3.74)
--- NOTE | 2020-11-03 22:24 | PCM.HP.BLA ---
History and Physical Date of Admission: 11/04/20 HISTORY OF PRESENT ILLNESS 44 year old woman presents for evaluation of abdominal panniculus and associated abdominal wall skin crease intertrigo that developed after undergoing a gastric bypass procedure 7 years ago at [facility]. Her weight decreased from 299 down to 160 lbs. She also has redundant skin and subcutaneous tissue in the supraumbilical area with associated intertrigo and redundant skin and subcutaneous tissue in her bilateral medial upper thighs with associated pain and intertrigo. For the intertrigo, she uses powders for relief. She denies nausea and vomiting and bloating. We have obtained insurance approval for the panniculectomy as well as the dermolipectomy bilateral upper medial thighs. We proceeded with the abdominal panniculectomy initially on 06/23/20. There is a small residual wound left lateral abdominal wall that is being treated with Silver dressing changes. Postoperatively after the wound separation, culture showed Pseudomonas aeroginosa and MRSE. She was placed on Levaquin. We then proceeded with dermolipectomy right medial thigh on 09/02/20. After healing has occurred, we will now proceed with the left medial thigh surgery. PAST MEDICAL HISTORY Rectus diastasis of lower abdomen Excessive skin and subcutaneous tissue Excessive body weight loss Intertrigo Abdominal panniculus Vasodepressor syncope Postural hypotension GERD (gastroesophageal reflux disease) Hypothyroidism Essential hypertension Anemia Anxiety and depression Bone fracture Frequent headaches Heart murmur Hemorrhoids Hypoglycemia Mixed hyperlipidemia RSD (reflex sympathetic dystrophy) Recurrent infections Sleep apnea Tarsal tunnel syndrome Vitamin deficiency Anxiety Arthritis Chronic pain IBS (irritable bowel syndrome) Lumbar spondylolysis Abscess of buttock, right Gallstones History of DVT (deep vein thrombosis) Hives Non-healing ulcer of buttock with fat layer exposed UTI (urinary tract infection) Ulceration, vulva PAST SURGICAL HISTORY excision of lesion foot surgery cholecystectomy gastric bypass hysterectomy I &D right buttock abscess L2-5 medial branch radiofrequency ablation Abdominal panniculectomy - 06/23/20 Dermolipectomy right medial thigh - 09/02/20 ALLERGIES Penicillins [PCN] silicone [Silicone] hydrochlorothiazide Xrwjpay-Hex-Fdn Reductase Inhibitor topiramate [From Topamax] MEDICATIONS Ergocalciferol [Vitamin D] Levothyroxine [Synthroid] Omeprazole Biotin Calcium Citrate/Vitamin D3 [Calcium Citrate-Vit D3 Tablet] Cyanocobalamin (Vitamin B-12) [Vitamin B-12] Tizanidine HCl [Zanaflex] Rizatriptan Benzoate [Maxalt] Ascorbic Acid [Vitamin C] Multivitamin with Minerals [Multiple Vitamin] Docusate Sodium [Colace] proMETHazine tablet [Phenergan tablet] polyethylene glycol trazodone zonisamide duloxetine Gabapentin FAMILY HISTORY Mother - Diabetes, Cancer, Hypertension, Heart disease, Angina at rest, Arthritis, High cholesterol, Kidney disease Father - Heart disease, Hypertension, Anxiety, Arthritis, High cholesterol, Psychiatric care, Suicide attempt Brother - Hypertension, Asthma, Alcoholism, Anxiety, Arthritis, Psychiatric care, Suicide attempt SOCIAL HISTORY Smoking Status: Never smoker second hand exposure: No alcohol intake: never substance use type: does not use REVIEW OF SYSTEMS General - Denies fever. Has weight loss from gastric bypass of 139 lbs. Has fatigue. Eyes - Denies cataracts and glaucoma. ENT - Denies nasal congestion and sore throat. Endocrine - Has excessive thirst and urination. Has thyroid disease. Has heat/cold intolerance. Skin - Denies suspicious lesions and skin cancer. Has abdominal wall skin crease intertrigo, supraumbilical intertrigo, and medial upper thighs intertrigo. Has abdominal panniculus. Has redundant skin and subcutaneous tissue bilateral upper medial thighs. Musculoskeletal - Has joint pain, joint stiffness, weakness of muscles and joints, back pain, and arthritis. Neuro - Has headaches. Cardiovascular - Denies chest pain, fatigue, and shortness of breath with exertion. Psych - Denies anxiety. Has depression. Has claustrophobia. Respiratory - Denies chronic cough and shortness of breath. Gastrointestinal - Denies nausea, vomiting, diarrhea, and constipation. Hematologic - Denies abnormal bruising and bleeding. Genitourinary - Denies hematuria and urinary frequency. Has incontinence. PHYSICAL EXAMINATION General - Alert and Oriented. Bra size is 38 C. HEENT - PERRL. EOMI. Throat is clear. Neck - Supple and nontender. No cervical adenopathy. Lungs - Clear to auscultation. Heart - Regular rate and rhythm. Abdomen - Soft and nondistended. Has incision from abdominal panniculectomy that is healing except for small wound separation on the left lateral aspect. Treated with Silver dressing changes. Extremities - FROM. No axillary adenopathy. No inguinal adenopathy. Radial pulses are palpable. Has redundant skin and subcutaneous tissue with isolated adiposity left upper medial thigh. Has associated intertrigo. The right medial thigh incisions are healed. Good right thigh contour noted. Neuro - CN II-XII grossly intact. Psych - Normal mood and affect. ASSESSMENT 1. History of gastric bypass surgery. 2. Redundant skin and subcutaneous tissue with isolated adiposity bilateral upper medial thighs, s/p dermolipectomy right medial thigh. 3. Medial thigh intertrigo. 4. Large abdominal panniculus s/p abdominal panniculectomy. 5. Recent excessive weight loss. PLAN She had an abdominal panniculectomy on 06/23/20. Healing has been satisfactory except for small wound openings in the midline which has healed and the left lateral aspect. She was placed on Levaquin for culture that showed Pseudomonas aeroginosa annd RAYSHAWN. She has finished them. She would also benefit from a dermolipectomy bilateral upper medial thighs which would improve her symptomatology and minimize persistent intertrigo. We started with dermolipectomy right medial thigh on 09/02/20. After healing, will proceed with the left thigh. Doing both thighs at the same time would push the 6 hour time limit for elective surgery. Especially with two separate areas, it is hard to justify the added surgery if she develops a DVT. She already has a history of DVT. Since we don't have two teams that could do both sides on the same day, she didn't want to go out of town for that scenario. She understands the need for two surgeries. The surgery would be done under general anesthesia with a surgical observation overnight stay in the hospital. Will have drains in for several days and be maintained on antibiotics until the drains are removed. Tissue that is removed will be sent to Pathology for analysis. For the medial thighs, will wear compression nicko wraps or a compression garment. Patient was informed of the risks and complications of the procedure including alternatives to surgery. These were discussed with the patient personally. Patient voices understanding and wishes to proceed. Some of the risks and complications were included in a form from the [employer]. She had some remaining preop questions that were answered personally and to her satisfaction. We discussed the current risks associated with COVID-19. While it is understood that there is a community spread of COVID-19, the risk of victorina COVID-19 while at [facility] ([facility]) is very low; however, the risk cannot be completely mitigated because of the community spread of the disease. We discussed in detail the risk of exposure to and/or potential harm posed by the COVID-19 virus with having a surgery/procedure at this time versus the risk of delaying the surgery/procedure. It is not possible to know either the risk of delaying the surgery or procedure or chance of getting an infection with perfect accuracy, but a joint decision was made to proceed at this time with the scheduled surgery/procedure as indicated on the consent form. Patient was notified that we will need to comply with any screening or testing [facility] wishes to perform or that surgery may be delayed for any positive results. Discussed with the patient that I was tested for COVID-19 on 03/13/20 which was negative and on 03/27/20 which was negative and on 04/10/20 which was negative and on 04/24/20 which was negative and on 05/08/20 which was negative and on 05/29/20 which was negative and on 06/19/20 which was negative and on 07/24/20 which was negative and on 08/14/20 which was negative and on 09/02/20 which was negative. My testing regimen at this time is to be COVID-19 tested every 2 weeks or so. I received the COVID-19 vaccine (Moderna) on 09/10/20 and the second dose was received on 10/08/20. Procedure Criteria Procedure Type: Elective COVID Risk Discussion: The surgeon/proceduralist and patient have discussed in detail the risk of exposure to and/or potential harm posed by the COVID-19 virus with having a surgery/procedure at this time versus the risk of delaying the surgery/procedure. It is not possible to know either the risk of delaying the surgery or procedure or chance of getting an infection with perfect accuracy, but a joint decision was made between the patient and the surgeon/proceduralist to proceed at this time with the scheduled surgery/procedure as indicated on the consent form.
[2020-11-04] VITALS (10 sets, daily range): BP systolic 93–135; BP diastolic 56–83; PULSE 64–90; RESP 16–18; TEMP 36.5–37.2; O2SAT 97–100; BMI 24.5
[2020-11-04] MEDS: Lactated Ringers 1,000 ML 100 ML IV ×3 (06:58→11:00)
--- NOTE | 2020-11-04 07:30 | SOF_PTH ---
PATIENT: ALFONSO TORO LOC: MS3 U#:[id number] AGE/SX: 44/F ROOM: [facility] RE11/04/[address]: Dr. Itz House MD : 1975 BED: 1 DIS: 11/06/2020 SPEC #: [id number] RECD: 11/04/20 11:07 STATUS: FAN REQ #: [id number] LUTHER: 11/04/20 07:[address]: Itz House DEPT: SURGICAL PATHOLOGY RECD BY: Hetal Hameed ENTERED: 11/04/20 12:55 SP TYPE: SOFT TISS OTHR DR: Dr. Ronnell Moreno MD Tissues: Soft tissues, NOS Procedures: Surgery Specimen Level III HEADER OPERATION: Dermolipectomy medial thigh PRE-OP DIAGNOSIS: History gastric bypass surgery; redundant skin and subcutaneous tissue with isolated adiposity bilateral upper medial thigh status post dermolipectomy right medial thigh; medial thigh intertrigo TISSUE SUBMITTED: Soft tissue left medial thigh MICROSCOPIC DIAGNOSIS Soft tissue left medial thigh: Pieces of skin with underlying adipose tissue, no pathologic diagnosis, clinically dermolipectomy, redundant skin and subcutaneous tissue. GREG:rasheed 11/05/2020 MICROSCOPIC DESCRIPTION Slides are reviewed. GROSS DESCRIPTION Received in fixative is one container labeled with the patient's name and designated soft tissue left medial thigh. The specimen consists of five variable sized pieces of skin with underlying adipose tissue measuring in aggregate 33 x 13 x 2 cm and measuring 5 to 33 cm in greatest dimension. One of the smaller pieces also show metallic staple in the center. No skin lesion is identified. Serial sections do not reveal any mass lesion. Bill Collector sections are submitted in four cassettes. / GREG:rasheed 11/04/20 TC:5 CPT: 54748
[2020-11-04] MEDS: levoFLOXacin IV 500 MG/100 ML BAG 100 MG IV (07:49)
[2020-11-04] MEDS: Lidocaine 1% /Epi 1:100 (20ml) 20 ML Vial (08:12)
--- NOTE | 2020-11-04 11:22 | OP.PCM_ITS ---
Report of Operation Date of Procedure: 11/04/20 Pre-Operative Diagnosis: 1. History of gastric bypass surgery. 2. Redundant skin and subcutaneous tissue with isolated adiposity bilateral upper medial thighs, s/p dermolipectomy right medial thigh. 3. Medial thigh intertrigo. 4. Large abdominal panniculus s/p abdominal panniculectomy. 5. Recent excessive weight loss. Post-Operative Diagnosis: Same. Surgery/Procedure Performed:: Dermolipectomy left medial thigh. Description of Surgical Findings:: 44 year old woman presents for evaluation of abdominal panniculus and associated abdominal wall skin crease intertrigo that developed after undergoing a gastric bypass procedure 7 years ago at [facility]. Her weight decreased from 299 down to 160 lbs. She also has redundant skin and subcutaneous tissue in the supraumbilical area with associated intertrigo and redundant skin and subcutaneous tissue in her bilateral medial upper thighs with associated pain and intertrigo. For the intertrigo, she uses powders for relief. She denies nausea and vomiting and bloating. We have obtained insurance approval for the panniculectomy as well as the dermolipectomy bilateral upper medial thighs. We proceeded with the abdominal panniculectomy initially on 06/23/20. There is a small residual wound left lateral abdominal wall that is being treated with Silver dressing changes. Postoperatively after the wound separation, culture s howed Pseudomonas aeroginosa and MRSE. She was placed on Levaquin. We then proceeded with dermolipectomy right medial thigh on 09/02/20. After healing has occurred, we will now proceed with the left medial thigh surgery. Patient was informed of the risks and complications of the procedure including alternatives to surgery. These were discussed with the patient personally. Patient voices understanding and wishes to proceed. Some of the risks and complications were included in a form from the [employer]. IV Fluids - 2100 ml. Urine Output - 245 ml. I used AmnioFill Placental Connective Tissue Powder, 500 mg. Catalog Number - [id number]. Lot Number - [id number]. Expiration - April 12, 2025. I used Luisana absorbable hemostat, (I used 2 vials). Reference Number - [id number]. Lot Number - [id number]. Expiration - July 09, 2025. Reference Number - [id number]. Lot Number - [id number]. Expiration - March 09, 2025. I used 400 ml Tumescent Anesthetic Solution 0.05%. Normal Saline- 936.5 ml. Lidocaine 1% - 50 ml. Epinephrine (1 mg/ml) - 1 ml. Sodium Bicarbonate - 12.5 mEq I removed 150 ml fatty aspirate from the distal medial thigh and knee area. platform material handling supervisor: Jackelyn Salas. Type of Anesthesia:: General Specimen's removed: Redundant skin and subcutaneous tissue left medial thigh to Pathology. Drains: Tony x 2. Estimated Blood Loss (mL): 50 ml. Fluids Replaced: 2345 ml (IV Fluids 2100 ml, Urine Output 245 ml). Description of Procedure: In the preop area, the patient was placed in the standing position, preoperative markings were made. The left medial thigh crease in the crural area was marked. I then marked the area of excess skin and adiposity in the medial thigh area. The patient was taken to the operating room and placed in the supine position, and placed under general anesthesia and her left thigh was prepped and draped in usual fashion. SCDs were placed for DVT prophylaxis. A Lion catheter was then placed. Perioperative antibiotics were given intravenously. The left thigh was then frog-legged into position. I then proceeded with excising the excess skin and isolated adiposity in the left medial thigh area by excising a vertical ellipse of skin down through the subcutaneous tissue from the medial thigh crease and crural area down to the distal medial thigh by the knee. Dissection was carried down to the fascia. Care was taken to avoid the saphenous vein. After I removed the skin and subcutaneous tissue, I then temporarily tacked the skin together to see what the final contouring looked like. I felt I could remove some more skin and so I extended the ellipse a little bit further, both anteriorly and inferiorly. When I felt I had a good contouring without too much tension on the closure, I marked the additional suture markings with a skin marker and this extra skin and subcutaneous tissue w as excised. Hemostasis was obtained using electrocautery. When I got more proximally, I was more superficial by the inguinal area to minimize too deep of dissection in the femoral triangle area. I then placed 2 size 15 Tony drains through separate stab incisions inferiorly, (anterior and posterior) to the incision and secured to the skin using 3-0 nylon sutures. I irrigated the wound with Irrisept 0.05% Chlorhexidine solution followed by saline irrigation. I then sprayed Luisana absorbable hemostat into the left medial thigh wound. I used 2 vials. In the proximal wound in the medial crural area is an area of the vertical incision intersecting with a horizontal incision in the lateral inguinal area that can sometimes develop suboptimal healing. I placed AmnioFill Placental Connective Tissue Powder in this are to help with the healing process. I used 500 mg. For the inferior wound area in the distal medial thigh area, there was some additional fullness involving subcutaneous tissue. I didn't want to extend the longitudinal incision into the knee area. So I used power assisted lipoplasty to help with the contouring in this area. I used the existing wound for the infiltration of the tumescent solution into the left distal medial thigh by the knee. I infiltrated about 400 mL into the area. I then used a power-assisted lipoplasty and removed about 150 mL of fatty aspirate from the distal medial thigh by the knee. I stopped when there was minimal friction and the areas felt clinically smooth and started developing some blood in the aspirate. I started closing the wound from distal to proximal. I first closed the superficial fascia using 2-0 Vicryl cwuusw-ac-skhrx interrupted sutures. As I went from distal to proximal any additional skin that needed to be excised was removed in a piecemeal fashion. I didn't want to excise too much at one time because of the risk of difficulty closing the wound secondary to swelling. When I got close to the proximal wound in the inguinal area, I performed a tightening suture with a 2-0 Vicryl cdenxe-dj-huvip interrupted suture through Colles fascia in the ischiopubic rami at the area of the adductor muscles. This was placed in the fascia and periosteal area of the ischiopubic ramus through the deep Colles fascia of the proximal skin flap. This was an anchoring suture to minimize the thigh from developing ptosis in the future. At this point, there were some dog ears that I extended in the inguinal crease laterally and superiorly. The excess skin was excised and the deeper fascia was approximated using 2-0 Vicryl umfuxe-gm-unlcc interrupted sutures. The deep dermis and subcutaneous tissue was approximated using 3-0 Monocryl interrupted sutures. I then closed the rest of the vertical incision up to the inguinal crease using 2-0 Vicryl kpbido-nu-lpehh interrupted sutures for the underlying deeper fascia followed by the deep dermis and subcutaneous tissue with 2-0 Vicryl interrupted sutures and 3-0 Monocryl interrupted sutures. The skin was approximated using 4-0 Prolene vertical mattress interrupted sutures for the inguinal skin crease as well as the proximal portion of the vertical incision. The vertical incision was approximated with 3-0 V lock unidirectional barbed running subcuticular suture. Good contouring was noted with the closure not being under too much tension. At the end of the procedure, no hematomas were noted. No vascular compromise was noted after the excess tissue was removed. I then placed a Histoacryl skin tissue adhesive on the incisions followed by Kerlix gauze on the incision followed by the compression Roddy wrap. Patient tolerated the procedure well and was sent to PACU in satisfactory condition. Patient will be sent upstairs for continued postop care. She will be sent home when she is tolerating po analgesia and steady on her feet with ambulation. The Lion catheter will be removed in approximately 2 weeks. Grafts/Implants Used: AmnioFill Placental Connective Tissue Powder, Luisana. - Complications None. - Admit VTE Documentation VTE Present on Admission: No VTE Mechan Device Prophylaxis: SCD's VTE Pharm Prophylaxis ordered?: Yes Surgery Charges CPT - 80770-24 ICD-10 - Z98.84, L98.7, L30.4, E65, R63.4
[2020-11-04] MEDS: HYDROmorphone 2 MG TABLET PO (13:31)
[2020-11-04] MEDS: diazePAM 5 MG Tablet PO ×2 (15:37→21:34)
[2020-11-04] MEDS: Lactated Ringers 1,000 ML 60 ML IV (17:06)
[2020-11-04] MEDS: HYDROmorphone 1 MG/ML Syringe IV ×2 (17:06→20:45)
[2020-11-04] MEDS: Gabapentin 100 MG Capsule 200 MG PO (21:35)
[2020-11-04] MEDS: ZONISAMIDE 100 MG CAPSULE 400 MG PO (21:36)
[2020-11-05 03:15] VITALS: BP 110/68; PULSE 74; RESP 18; TEMP 37.2; O2SAT 99
[2020-11-05] MEDS: HYDROmorphone 1 MG/ML Syringe IV ×3 (03:16→19:42)
[2020-11-05] MEDS: Enoxaparin 40 MG/0.4 ML Syringe SC (05:51)
[2020-11-05] MEDS: Levothyroxine 50 MCG Tablet PO (05:51)
[2020-11-05 06:36] LABS: Hematocrit 31.2 % (37-47); Hemoglobin 10.2 g/dL (12.0-15.0); Mean Corp Hgb Conc 32.7 g/dL (32-36); Mean Corpuscular Volume 94.8 fL (81-99); Mean Platelet Vol. 10.7 fl (6.2-12.0); Platelet Count 164 K/mm3 (150-450); RBC Distribution Width CV 15.4 % (11.6-14.6); RBC Distribution Width SD 52.8 fl (35.1-43.9); Red Blood Count 3.29 M/mm3 (4.2-5.4); White Blood Count 7.8 K/mm3 (4.4-11.0)
[2020-11-05 07:07] LABS: Anion Gap 4 (5-15); BUN 13 mg/dL (7-18); BUN/Creat Ratio 28.1 RATIO (10-20); Calcium,Total 8.4 mg/dL (8.5-10.1); Chloride 113 mmol/L (98-107); Creatinine, Serum 0.46 mg/dL (0.55-1.02); EST Glomerular Filtration Rate 156 mL/min (>60); Est Glom Filt Rate - Afr Amer 189 mL/min (>60); Estimated Creatinine Clearance 136.17 ml/min; Glucose 85 mg/dL (74-106); Potassium 3.3 mmol/L (3.5-5.1); Prealbumin 17.8 mg/dL (20.0-40.0); Sodium Level 143 mmol/L (136-145)
[2020-11-05 07:34] VITALS: BP 110/73; PULSE 73; RESP 16; TEMP 37.1; O2SAT 100
[2020-11-05] MEDS: Multivitamins,Ther W-Minerals Tablet 1 TABLET PO (07:45)
[2020-11-05] MEDS: Ascorbic Acid 500 MG Tablet PO (07:45)
[2020-11-05] MEDS: Calcium Carb/Vitamin D 1 TABLET Tablet PO (07:48)
[2020-11-05] MEDS: Lactated Ringers 1,000 ML 60 ML IV (07:50)
[2020-11-05] MEDS: levoFLOXacin IV 500 MG/100 ML BAG 100 MG IV (10:48)
[2020-11-05] MEDS: Gabapentin 100 MG Capsule 200 MG PO ×2 (10:51→21:29)
[2020-11-05] MEDS: Docusate Sodium 100 MG Capsule PO (10:51)
[2020-11-05] MEDS: DULoxetine Hcl 60 MG Capsule 120 MG PO (10:51)
[2020-11-05] MEDS: Pantoprazole Sodium 40 MG Tablet PO (10:51)
[2020-11-05] MEDS: Cyanocobalamin 500 MCG Tablet PO (10:52)
[2020-11-05] MEDS: tiZANidine HCl 2 MG Tablet 4 MG PO (10:52)
--- NOTE | 2020-11-05 11:45 | CASEMGMT ---
IDANIA GO in to discuss ENCINAS form with pt. RN CM explained ENCINAS form, pt voiced understanding. Pt signed ENCINAS form and filed in chart. Pt provided with copy of signed E[employer]AS form. Pt had no further questions or concerns at this time.
[2020-11-05] MEDS: 0.9% Saline Lock 10 ML Syringe IV (11:50)
[2020-11-05 13:12] VITALS: BP 109/69; PULSE 69; RESP 16; TEMP 37.1; O2SAT 100
--- NOTE | 2020-11-05 13:13 | PCM.PN.SRG ---
Subjective: Postop #1 Patient is complaining of pain. She is requiring IV pain meds to control her pain. - Physical Exam Vitals/I&O's: Vital Signs Temp Pulse Resp BP Pulse Ox 98.7 F 73 16 110/73 100 11/05/20 07:34 11/05/20 07:34 11/05/20 07:34 11/05/20 07:34 11/05/20 07:34 Oxygen Delivery Method Room Air Weight: 142 lb 13.753 oz Body Mass Index (BMI) 24.5 Intake and Output for Last 24 Hours 11/03/20 11/04/20 11/05/20 23:59 23:59 23:59 Intake Total 2600 / 2600 1162 / 1162 Output Total 1321 / 2391 4077 / 4077 Balance 1279 / 209 -2915 / -2915 Tony drain output through 7am today: #1 137ml and #2 15 ml General: Alert, Oriented x3, Cooperative HEENT: Atraumatic Oral: Moist Mucosa Lungs: Normal air movement Cardiovascular: Regular rate Extremities: Capillary Refill Less than 3 Seconds, Edema, Tenderness Skin: Incision - Left groin and medial leg incision is dry and intact. Sutures are intact. Tony drains are intact and draining serosanguinous drainage. Musculoskeletal: Tenderness - Left thigh Neurological: Cranial nerves II-XII grossly intact Psych/Mental Status: Normal Affect, Appropriate Microbiology Past 72 Hours 11/03/20 11:00 Interface Orders SARS-CoV-2 Antigen (Rapid) - Final Laboratory Results 11/05/20 05:25: WBC 7.8, RBC 3.29 L, Hgb 10.2 L, Hct 31.2 L, MCV 94.8, MCH 31.0, MCHC 32.7, RDW Std Deviation 52.8 H, RDW Coeff of [place] 15.4 H, Plt Count 164, MPV 10.7 11/05/20 05:25: Sodium 143, Potassium 3.3 L, Chloride 113 H, Carbon Dioxide 26.0, Anion Gap 4 L, BUN 13, Creatinine 0.46 L, Estim Creat Clear Calc 136.17, Est GFR (MDRD) Af Amer 189, Est GFR (MDRD) Non-Af 156, BUN/Creatinine Ratio 28.1 H, Glucose 85, Calcium 8.4 L, Prealbumin 17.8 L Current Medications Ascorbic Acid (Ascorbic Acid 500 Mg Tablet) 500 mg PO DAILY@0800 [facility] Last Admin: 11/05/20 07:45 Dose: 500 mg Documented by: Buspirone HCl (Buspirone 15 Mg Tablet) 15 mg PO BID PRN PRN PRN Reason: ANXIETY Calcium/Vitamin D (Calcium Carb/Vitamin D 1 Tablet Tablet) 1 tablet PO DAILYCOX MONETT Last Admin: 11/05/20 07:48 Dose: 1 tablet Documented by: Cholecalciferol (Cholecalciferol (Vit D3) 1,000 Unit (25mcg)) 4,000 unit PO DAILY [facility] Last Admin: 11/05/20 10:52 Dose: 4,000 unit Documented by: Cyanocobalamin (Cyanocobalamin 500 Mcg Tablet) 500 mcg PO DAILY [facility] Last Admin: 11/05/20 10:52 Dose: 500 mcg Documented by: Diazepam (Diazepam 5 Mg Tablet) 5 mg PO 4X/DAY PRN PRN PRN Reason: SPASMS Last Admin: 11/04/20 21:34 Dose: 5 mg Documented by: Docusate Sodium (Docusate Sodium 100 Mg Capsule) 100 mg PO DAILY [facility] Last Admin: 11/05/20 10:51 Dose: 100 mg Documented by: Duloxetine HCl (Duloxetine Hcl 60 Mg Capsule) 120 mg PO DAILY [facility] Last Admin: 11/05/20 10:51 Dose: 120 mg Documented by: Enoxaparin Sodium (Enoxaparin 40 Mg/0.4 Ml Syringe) 40 mg SC DAILY@0600 [facility] Last Admin: 11/05/20 05:51 Dose: 40 mg Documented by: Gabapentin (Gabapentin 100 Mg Capsule) 200 mg PO BID [facility] Last Admin: 11/05/20 10:51 Dose: 200 mg Documented by: Hydromorphone HCl (Hydromorphone 1 Mg/Ml Syringe) 1 mg IV Q3H PRN PRN PRN Reason: Pain Score 6-10 Last Admin: 11/05/20 11:50 Dose: 1 mg Documented by: Hydromorphone HCl (Hydromorphone 2 Mg Tablet) 2 mg PO Q3H PRN PRN PRN Reason: Pain Score 4-5 Last Admin: 11/04/20 13:31 Dose: 2 mg Documented by: Lactated Ringer's () 1,000 mls @ 60 mls/hr IV .[id number] [facility] Last Infusion: 11/05/20 11:48 Dose: 60 mls/hr Documented by: Levofloxacin (Levaquin Iv) 500 mg in 100 mls @ 100 mls/hr IV Q24 [facility] Last Infusion: 11/05/20 11:48 Dose: Infused Documented by: Levothyroxine Sodium (Levothyroxine 50 Mcg Tablet) 50 mcg PO DAILY@0600 [facility] Last Admin: 11/05/20 05:51 Dose: 50 mcg Documented by: Multivitamins/Minerals (Multivitamins,Ther W-Minerals Tablet) 1 tablet PO DAILY@0800 [facility] Last Admin: 11/05/20 07:45 Dose: 1 tablet Documented by: Ondansetron HCl (Ondansetron 4 Mg/2 Ml Vial) 4 mg IV Q6H PRN PRN PRN Reason: NAUSEA Pantoprazole Sodium (Pantoprazole Sodium 40 Mg Tablet) 40 mg PO DAILY [facility] Last Admin: 11/05/20 10:51 Dose: 40 mg Documented by: Polyethylene Glycol (Polyethylene Glycol 3350 17 Gm Packet) 17 gm PO DAILY PRN PRN Reason: constipation Promethazine HCl (Promethazine 25 Mg Tablet) 25 mg PO Q4H PRN PRN PRN Reason: NAUSEA/VOMITING Rizatriptan Benzoate (Rizatriptan Benzoate 5 Mg Tablet) 5 mg PO .X1 PRN PRN PRN Reason: MIGRAINE SYMPTOMS Sodium Chloride (0.9% Saline Lock 10 Ml Syringe) 10 - 40 ml IV UD PRN PRN Reason: SALINE FLUSH Last Admin: 11/05/20 11:50 Dose: 10 ml Documented by: Tizanidine HCl (Tizanidine Hcl 2 Mg Tablet) 4 mg PO DAILY [facility] Last Admin: 11/05/20 10:52 Dose: 4 mg Documented by: Trazodone HCl (Trazodone 100 Mg Tablet) 100 mg PO QHS PRN PRN PRN Reason: SLEEP Zonisamide (Zonisamide 100 Mg Capsule) 400 mg PO QHS [facility] Last Admin: 11/04/20 21:36 Dose: 400 mg Documented by: Medical Necessity - Tobacco Use Smoking Status: Never smoker Tobacco Use: Non-smoker Assessment/Plan All Active Problems (Last Reviewed 10/31/20 @ 16:[address] Itz House MD) Nonhealing surgical wound (Acute) Abscess, vulva (Resolved) Decubitus ulcer of right buttock (Ruled-out) 1. History of gastric bypass surgery. 2. Redundant skin and subcutaneous tissue with isolated adiposity bilateral upper medial thighs, s/p dermolipectomy right medial thigh. 3. Medial thigh intertrigo. 4. Large abdominal panniculus s/p abdominal panniculectomy. 5. Recent excessive weight loss. Left medial thigh incision is dry and intact. Nonhealing ulcer left abdominal wall is stable. Redressed with Silver dressing changes daily. Continue compression dressing to both the left and the right thigh. Encourage ambulation with assist. She is having increased pain with ambulation. She needs to be steady on her feet with ambulation before discharge. Anticipate discharge tomorrow. Also will need to be tolerating po analgesia at discharge. Continue Levaquin antibiotics until the drains are removed. Prealbumin was 17.8. Encourage nutritional supplementation with protein to help the healing process. Will discharge home with the lyon catheter and remove as an outpatient
[2020-11-05] MEDS: Potassium Chloride Oral Tablet 20 MEQ PO (16:39)
[2020-11-05 19:45] VITALS: BP 110/64; PULSE 77; RESP 16; TEMP 36.9; O2SAT 96
[2020-11-05] MEDS: ZONISAMIDE 100 MG CAPSULE 400 MG PO (21:29)
[2020-11-05] MEDS: diazePAM 5 MG Tablet PO (21:55)
[2020-11-06 02:00] VITALS: BP 108/54; PULSE 74; RESP 16; TEMP 36.6; O2SAT 97
[2020-11-06] MEDS: Lactated Ringers 1,000 ML 60 ML IV (02:09)
[2020-11-06] MEDS: HYDROmorphone 1 MG/ML Syringe IV (04:33)
[2020-11-06 05:37] LABS: Anion Gap 3 (5-15); BUN 16 mg/dL (7-18); BUN/Creat Ratio 28.3 RATIO (10-20); Calcium,Total 8.3 mg/dL (8.5-10.1); Chloride 108 mmol/L (98-107); Creatinine, Serum 0.56 mg/dL (0.55-1.02); EST Glomerular Filtration Rate 124 mL/min (>60); Est Glom Filt Rate - Afr Amer 150 mL/min (>60); Estimated Creatinine Clearance 111.86 ml/min; Glucose 109 mg/dL (74-106); Potassium 3.6 mmol/L (3.5-5.1); Sodium Level 140 mmol/L (136-145)
[2020-11-06] MEDS: Levothyroxine 50 MCG Tablet PO (05:46)
[2020-11-06] MEDS: Enoxaparin 40 MG/0.4 ML Syringe SC (05:46)
[2020-11-06 08:47] VITALS: BP 113/64; PULSE 66; RESP 16; TEMP 37; O2SAT 100
[2020-11-06] MEDS: HYDROmorphone 2 MG TABLET PO (08:55)
[2020-11-06] MEDS: Potassium Chloride Oral Tablet 20 MEQ PO (09:23)
[2020-11-06] MEDS: Calcium Carb/Vitamin D 1 TABLET Tablet PO (09:24)
[2020-11-06] MEDS: Multivitamins,Ther W-Minerals Tablet 1 TABLET PO (09:24)
[2020-11-06] MEDS: Ascorbic Acid 500 MG Tablet PO (09:25)
[2020-11-06] MEDS: Docusate Sodium 100 MG Capsule PO (09:25)
[2020-11-06] MEDS: DULoxetine Hcl 60 MG Capsule 120 MG PO (09:26)
[2020-11-06] MEDS: Gabapentin 100 MG Capsule 200 MG PO (09:26)
[2020-11-06] MEDS: Pantoprazole Sodium 40 MG Tablet PO (09:27)
[2020-11-06] MEDS: Cyanocobalamin 500 MCG Tablet PO (09:27)
[2020-11-06] MEDS: tiZANidine HCl 2 MG Tablet 4 MG PO (09:29)
[2020-11-06] MEDS: levoFLOXacin IV 500 MG/100 ML BAG 100 MG IV (09:31)
[2020-11-06 10:35] VITALS: RESP 16; O2SAT 100
--- NOTE | 2020-11-06 11:58 | DCINST_ITS ---
You will use the following diet at home:: No restrictions - Encourage nutritional supplementation with protein to help the healing process. Discharge Activity: May Not Drive, May Shower - Until the drains are removed. May shower in (days): 14 - after drains removed. May resume sexual activity in: 10-14 days Weight Bearing Status: Weight bearing as tolerated Keep extremity elevated above heart level: Left Leg Call your doctor if your incision/area has: Continuous Slow Oozing, Sudden Increased Bleeding, Increased Pain/ Swelling, Increased Redness, Foul Smelling Discharge, Swelling at the incision site Call your doctor if you observe: Fever of 101 or Higher, Coldness, Increased Pain, Shortness of breath, Chest pain, Calf discomfort, Uncontrolled pain Suture Line Care: - - dry dressing followed by compression adelaide wrap. Change Dressing in (Days):: 1 - dry dressing followed by compression [place] wrap Catheter: Lion to leg bag - will remove after drains are removed Drain: Suction - Tony drain x2 to bulb suction. Empty and record output daily. Allergies/Adverse Reactions: Allergies Penicillins [PCN] Allergy (Verified 10/30/20 07:58) Rash RAPID HEARTRATE silicone [Silicone] Allergy (Verified 10/30/20 07:58) Rash hydrochlorothiazide Adverse Reaction (Verified 10/30/20 07:58) Other Qlegtaf-Mly-Aej Reductase Inhibitor Adverse Reaction (Verified 10/30/20 07:58) Other CRAMPING IN LEGS topiramate [From Topamax] Adverse Reaction (Verified 10/30/20 07:58) Chest tightness Medications to take at Discharge Ergocalciferol [Vitamin D] 4,000 unit PO DAILY 06/19/13 Levothyroxine [Synthroid] 50 mcg PO DAILY 06/19/13 Omeprazole [Prilosec] 40 mg PO DAILY 06/19/13 Biotin 10 mg PO DAILY 12/22/13 Calcium Citrate/Vitamin D3 [Calcium Citrate-Vit D3 Tablet] 6 tab PO DAILY 06/23/17 Cyanocobalamin (Vitamin B-12) [Vitamin B-12] 500 mcg PO DAILY 06/23/17 Tizanidine HCl [Zanaflex] 4 mg PO BID 06/23/17 Rizatriptan Benzoate [Maxalt] 5 mg PO .X1 PRN 10/18/18 Ascorbic Acid [Vitamin C] 500 mg PO DAILY@0800 04/15/19 Multivitamin with Minerals [Multiple Vitamin] 1 ea PO DAILY 12/25/18 polyethylene glycol 3350 17 gram/dose oral powder 17 g PO DAILY PRN #119 g 01/04/19 trazodone 50 mg tablet 100 mg PO QHS PRN 04/26/19 zonisamide 100 mg capsule 400 mg PO QHS cap 04/26/19 duloxetine 60 mg capsule,delayed release 120 mg PO DAILY cap 05/14/20 busPIRone [Buspar] 15 mg PO BID PRN 06/13/20 docusate sodium 100 mg capsule 100 mg PO DAILY 30 Days #30 cap 09/11/20 gabapentin 100 mg capsule 200 mg PO BID 30 Days #120 cap 10/29/20 Calcium Carb/Vitamin D [Os-Yoni 500MG + D] 1 tab PO DAILYCM tab 11/06/20 Diazepam [Valium] 5 mg PO 4X/DAY 7 Days #30 tab 11/06/20 HYDROmorphone tablet [Dilaudid] 2 mg PO Q4H PRN PRN 7 Days #40 tab 11/06/20 Pantoprazole Sodium [Protonix] 40 mg PO DAILY tab 11/06/20 Potassium Chloride Oral Tablet [K-Dur] 20 meq PO BIDCM 7 Days #14 tab 11/06/20 levoFLOXacin tablet [Levaquin tablet] 500 mg PO DAILY 10 Days #10 tab 11/06/20 The following prescriptions were given: HYDROmorphone tablet [Dilaudid] 2 mg PO Q4H PRN PRN 7 Days #40 tab PRN Reason: Pain Score 6-10 Transmission Status: Sent to [facility] Potassium Chloride Oral Tablet [K-Dur] 20 meq PO BIDCM 7 Days #14 tab Transmission Status: Pending to [facility] levoFLOXacin tablet [Levaquin tablet] 500 mg PO DAILY 10 Days #10 tab Transmission Status: Pending to [facility] Diazepam [Valium] 5 mg PO 4X/DAY 7 Days #30 tab Transmission Status: Sent to [facility] Primary Care Physician: Ronnell Moreno MD [Primary Care Provider] - Test Results: Test results from this visit will be discussed in further detail at your follow- up appointment, if applicable. Please Follow Up With: Dr. House or Debbie When: one week Proposed Discharge Date: 11/06/20
--- NOTE | 2020-11-06 12:26 | PN.SURG_ITS ---
Subjective: Postop #2 Patient states pain is much better today. She has been ambulating in the halls. - Physical Exam Vitals/I&O's: Vital Signs Temp Pulse Resp BP Pulse Ox 98.6 F 66 16 113/64 100 11/06/20 08:47 11/06/20 08:47 11/06/20 10:35 11/06/20 08:47 11/06/20 10:35 Oxygen Delivery Method Room Air Weight: 142 lb 13.753 oz Body Mass Index (BMI) 24.5 Intake and Output for Last 24 Hours 11/04/20 11/05/20 11/06/20 23:59 23:59 23:59 Intake Total 2600 / 2600 1162 / 1162 1363 / 1363 Output Total 1321 / 2391 4077 / 5122 3307 / 3307 Balance 1279 / 209 -2915 / -3960 -1944 / -194 General: Alert, Oriented x3, Cooperative HEENT: Atraumatic Oral: Moist Mucosa Lungs: Clear to auscultation, Normal air movement Cardiovascular: Regular rate, Regular Rhythm Abdomen: Bowel Sounds Present Extremities: Edema - Left leg Skin: Incision - Left thigh and groin incision is dry and intact. Sutures intact. Dressing changed. No drainage from the incision site. Placed Kerlix over the incision and A[place] wrap for compression. Tony drains inplace, draining serosanguineous drainage. Musculoskeletal: Tenderness - behind left knee near the Tony drains. Neurological: Cranial nerves II-XII grossly intact Psych/Mental Status: Normal Affect, Appropriate Microbiology Past 72 Hours 11/03/20 11:00 Interface Orders SARS-CoV-2 Antigen (Rapid) - Final Laboratory Results 11/06/20 05:14: Sodium 140, Potassium 3.6, Chloride 108 H, Carbon Dioxide 29.0, Anion Gap 3 L, BUN 16, Creatinine 0.56, Estim Creat Clear Calc 111.86, Est GFR (MDRD) Af Amer 150, Est GFR (MDRD) Non-Af 124, BUN/Creatinine Ratio 28.3 H, Glucose 109 H, Calcium 8.3 L Current Medications Ascorbic Acid (Ascorbic Acid 500 Mg Tablet) 500 mg PO DAILY@0800 KANDY Last Admin: 11/06/20 09:25 Dose: 500 mg Documented by: Buspirone HCl (Buspirone 15 Mg Tablet) 15 mg PO BID PRN PRN PRN Reason: ANXIETY Calcium/Vitamin D (Calcium Carb/Vitamin D 1 Tablet Tablet) 1 tablet PO DAILYCM [facility] Last Admin: 11/06/20 09:24 Dose: 1 tablet Documented by: Cholecalciferol (Cholecalciferol (Vit D3) 1,000 Unit (25mcg)) 4,000 unit PO DAILY [facility] Last Admin: 11/06/20 09:28 Dose: 4,000 unit Documented by: Cyanocobalamin (Cyanocobalamin 500 Mcg Tablet) 500 mcg PO DAILY [facility] Last Admin: 11/06/20 09:27 Dose: 500 mcg Documented by: Diazepam (Diazepam 5 Mg Tablet) 5 mg PO 4X/DAY PRN PRN PRN Reason: SPASMS Last Admin: 11/05/20 21:55 Dose: 5 mg Documented by: Docusate Sodium (Docusate Sodium 100 Mg Capsule) 100 mg PO DAILY [facility] Last Admin: 11/06/20 09:25 Dose: 100 mg Documented by: Duloxetine HCl (Duloxetine Hcl 60 Mg Capsule) 120 mg PO DAILY [facility] Last Admin: 11/06/20 09:26 Dose: 120 mg Documented by: Enoxaparin Sodium (Enoxaparin 40 Mg/0.4 Ml Syringe) 40 mg SC DAILY@0600 [facility] Last Admin: 11/06/20 05:46 Dose: 40 mg Documented by: Gabapentin (Gabapentin 100 Mg Capsule) 200 mg PO BID [facility] Last Admin: 11/06/20 09:26 Dose: 200 mg Documented by: Hydromorphone HCl (Hydromorphone 1 Mg/Ml Syringe) 1 mg IV Q3H PRN PRN PRN Reason: Pain Score 6-10 Last Admin: 11/06/20 04:33 Dose: 1 mg Documented by: Hydromorphone HCl (Hydromorphone 2 Mg Tablet) 2 mg PO Q3H PRN PRN PRN Reason: Pain Score 4-5 Last Admin: 11/06/20 08:55 Dose: 2 mg Documented by: Lactated Ringer's () 1,000 mls @ 60 mls/hr IV .[id number] [facility] Last Infusion: 11/06/20 10:34 Dose: 60 mls/hr Documented by: Levofloxacin (Levaquin Iv) 500 mg in 100 mls @ 100 mls/hr IV Q24 [facility] Last Infusion: 11/06/20 10:31 Dose: Infused Documented by: Levothyroxine Sodium (Levothyroxine 50 Mcg Tablet) 50 mcg PO DAILY@0600 [facility] Last Admin: 11/06/20 05:46 Dose: 50 mcg Documented by: Multivitamins/Minerals (Multivitamins,Ther W-Minerals Tablet) 1 tablet PO DAILY@0800 [facility] Last Admin: 11/06/20 09:24 Dose: 1 tablet Documented by: Ondansetron HCl (Ondansetron 4 Mg/2 Ml Vial) 4 mg IV Q6H PRN PRN PRN Reason: NAUSEA Pantoprazole Sodium (Pantoprazole Sodium 40 Mg Tablet) 40 mg PO DAILY [facility] Last Admin: 11/06/20 09:27 Dose: 40 mg Documented by: Polyethylene Glycol (Polyethylene Glycol 3350 17 Gm Packet) 17 gm PO DAILY PRN PRN Reason: constipation Potassium Chloride (Potassium Chloride Oral Tablet 20 Meq) 20 meq PO BIDCM [facility] Last Admin: 11/06/20 09:23 Dose: 20 meq Documented by: Promethazine HCl (Promethazine 25 Mg Tablet) 25 mg PO Q4H PRN PRN PRN Reason: NAUSEA/VOMITING Rizatriptan Benzoate (Rizatriptan Benzoate 5 Mg Tablet) 5 mg PO .X1 PRN PRN PRN Reason: MIGRAINE SYMPTOMS Sodium Chloride (0.9% Saline Lock 10 Ml Syringe) 10 - 40 ml IV UD PRN PRN Reason: SALINE FLUSH Last Admin: 11/05/20 11:50 Dose: 10 ml Documented by: Tizanidine HCl (Tizanidine Hcl 2 Mg Tablet) 4 mg PO DAILY [facility] Last Admin: 11/06/20 09:29 Dose: 4 mg Documented by: Trazodone HCl (Trazodone 100 Mg Tablet) 100 mg PO QHS PRN PRN PRN Reason: SLEEP Zonisamide (Zonisamide 100 Mg Capsule) 400 mg PO QHS [facility] Last Admin: 11/05/20 21:29 Dose: 400 mg Documented by: Medical Necessity - Tobacco Use Smoking Status: Never smoker Tobacco Use: Non-smoker Assessment/Plan All Active Problems (Last Reviewed 10/31/20 @ 16:[address] Itz House MD) Nonhealing surgical wound (Acute) Abscess, vulva (Resolved) Decubitus ulcer of right buttock (Ruled-out) 1. History of gastric bypass surgery. 2. Redundant skin and subcutaneous tissue with isolated adiposity bilateral upper medial thighs, s/p dermolipectomy right medial thigh. 3. Medial thigh intertrigo. 4. Large abdominal panniculus s/p abdominal panniculectomy. 5. Recent excessive weight loss. Left medial thigh incision is dry and intact. Dressing changed. Nonhealing ulcer left abdominal wall is stable. Redressed with Silver dressing changes daily. Continue compression dressing to both the left and the right thigh. Encourage ambulation with assist. She is ambulating well. Pain controlled with oral pain meds. Continue Levaquin antibiotics until the drains are removed. Prealbumin was 17.8. Encourage nutritional supplementation with protein to help the healing process. Potassium 3.3 yesterday. Started her on Kdur 20 meq and K+ 3.6 today. Will send her home on supplement for the next week. Will discharge home today with the lyon catheter and remove as an outpatient. Follow up in office next week.
[2020-11-06 13:50] VITALS: BP 105/58; PULSE 89; RESP 16; TEMP 36.9; O2SAT 100
--- NOTE | 2020-11-06 17:17 | NURSING ---
Student documentation reviewed.
== END 2020-11-06 14:30 | disposition home or self-care (01) ==
LOC: SDC 13:03 → MS3 13:03
PROVIDERS: Anesthesiology; Admitting Provider Surgery; PCP Family Medicine; Referring Provider Surgery; Visit Provider Surgery
PROC: (CPT 15832; principal; 2020-11-04 07:15)
DX: L98.7 Excessive and redundant skin and subcutaneous tissue (principal); L30.4 Erythema intertrigo; Z98.84 Bariatric surgery status; Z20.828 Contact with and (suspected) exposure to other viral communicable diseases; E65 Localized adiposity; K21.9 Gastro-esophageal reflux disease without esophagitis; I10 Essential (primary) hypertension; E03.9 Hypothyroidism, unspecified; F41.9 Anxiety disorder, unspecified; F32.9 Major depressive disorder, single episode, unspecified; E78.2 Mixed hyperlipidemia; M19.90 Unspecified osteoarthritis, unspecified site; K58.9 Irritable bowel syndrome, unspecified; G47.30 Sleep apnea, unspecified; Z79.899 Other long term (current) drug therapy; Z86.718 Personal history of other venous thrombosis and embolism
CPT/HCPCS: 00400; 15832; 36415; 80048; 80076; 84134; 84443; 85027; 87426; 88304; 88305; 96365; 96366; 96372; 96375; 96376; 97802; 99218; C9803; J7030; J7120; A4216; G0378; G0379; J2405

== ENCOUNTER → 2020-12-19 11:38 | Outpatient (CLI) | payer MEDICARE, SELFPAY | PROVIDERS: PCP Family Medicine; Referring Provider Nurse Practitioner Family; Visit Provider Nurse Practitioner Family | DX: T81.89XA Other complications of procedures, not elsewhere classified, initial encounter (principal); L98.7 Excessive and redundant skin and subcutaneous tissue; Z98.84 Bariatric surgery status; R63.4 Abnormal weight loss; E65 Localized adiposity; L30.4 Erythema intertrigo | CPT/HCPCS: 87070; 87075; 87205 ==

== ENCOUNTER → 2021-01-09 12:52 | Outpatient (CLI) | payer MEDICARE, MEDICAID, SELFPAY ==
[2021-01-06 10:26] VITALS: BMI 24.5
--- NOTE | 2021-01-09 12:55 | VDLE_ITS ---
Reason For Study: Left leg edema Procedure LEFT This is a venous duplex using B-mode, color GSV is normal. flow and spectral Doppler. CFV is compressible, spontaneous, phasic, Exam performed in department. competent, and demonstrates normal A preliminary report was called and/or faxed augmentation. to Renee. FV is compressible, spontaneous, phasic, competent and demonstrates normal augmentation. POP V is compressible, spontaneous, phasic, competent and demonstrates normal augmentation. T/P Trunk is compressible. PTV is compressible. LT PerV is compressible. VL/Venous Duplex US, Unilateral Interpretation Summary There is no evidence of left lower extremity deep vein thrombosis. Left great s aphenous vein appears patent and compressible segmentally. Ordering Physician: Debbie Duran Referring Physician: Ronnell Moreno Performed By: Kasey Andrade RVT
== END ==
PROVIDERS: PCP Family Medicine; Referring Provider Nurse Practitioner Family; Visit Provider Nurse Practitioner Family
DX: R60.0 Localized edema (principal)
CPT/HCPCS: 93971

== ENCOUNTER → 2021-01-15 | Outpatient (CLI) | payer MEDICAID, SELFPAY ==
[2021-01-14 10:07] VITALS: BMI 24.5
== END | disposition home or self-care (01) ==
PROVIDERS: PCP Family Medicine; Visit Provider Obstetrics & Gynecology
DX: Z11.3 Encounter for screening for infections with a predominantly sexual mode of transmission (principal)

== ENCOUNTER 2021-01-16 16:53 | Emergency (ER) | payer MEDICARE, MEDICAID, SELFPAY ==
[2021-01-14 10:07] VITALS: BMI 24.5
[2021-01-16 16:57] VITALS: BP 131/93; PULSE 85; RESP 16; TEMP 36.9; O2SAT 100; BMI 23.1
--- NOTE | 2021-01-16 17:34 | CT_ITS ---
EXAMINATION : Head CT w/out contrast HISTORY : trauma, headache/nausea COMPARISON : None. TECHNIQUE : Multiple contiguous axial images were obtained from the skull base to the vertex without intravenous contrast. A radiation dose optimization technique was used for this scan. FINDINGS : The ventricles and sulci are normal in size. There is no evidence for acute intracranial hemorrhage, mass effect, or midline shift. There is no extra-axial fluid collection. There is normal puentes-white differentiation, without CT evidence of acute ischemia or infarct. The skull base and calvarium are unremarkable. The orbits are unremarkable. The paranasal sinuses are clear. The mastoid air cells are well-aerated. The soft tissues are unremarkable. CT/Brain/Head without Contrast IMPRESSION: No acute intracranial abnormality. Electronically Signed: Jean Paul Rosales MD at 18:24 EDT Tel , Service support ,
[2021-01-16] MEDS: Ondansetron ODT 4 MG Tablet 8 MG PO (17:46)
--- NOTE | 2021-01-16 18:02 | EDS_ITS ---
HPI History of Present Illness Chief Complaint: Head Injury Onset/Context/Timing Onset: Days (2) Mechanism/Context: Fall Location of pain/injuries: - (head) Quality of Pain: Aching Location: occipital scalp Current Severity: Moderate Maximum Severity: Severe Worsened by: palpation Relieved by: leaving alone Associated Symptoms Associated Symptoms: Positive for Loss of consciousness; Negative for Parasthesias, Weakness and Loss of function Length of loss of consciousness: brief, if present Narrative Narrative: Patient states she was riding a hover board in her house, and accidentally fell off, hitting her head on a nearby wooden table. She thinks she briefly lost consciousness. She has had nausea but no vomiting. She has been having headaches. She went to see her PCP today, this injury occurred 2 days ago. In the office she was crying and saying that she wanted to . She was sent to the ED for further evaluation by EMS. On further discussion with the patient, she has a history of RSD from an injury in 1998, involving her left lower extremity. She also recently had 2 plastic surgeries to remove excess skin from her lower extremities, the most recent being from her left lower extremity in October, due to losing a lot of weight after gastric bypass surgery. When asked if she is just in a lot of pain or if she was suicidal, she states I do not know, I have a lot going on as she starts to become a little tearful. She also follows with pain management. [facility] Medical History (Updated 01/16/21 @ 19:[address] Cornelio Bauer MD) Abdominal panniculus Abscess of buttock, right Anemia Anxiety Anxiety and depression Arthritis Bone fracture Chronic pain Essential hypertension Excessive body weight loss Excessive skin and subcutaneous tissue Frequent headaches Gallstones GERD (gastroesophageal reflux disease) Heart murmur Hemorrhoids History of DVT (deep vein thrombosis) Hives Hypoglycemia Hypothyroidism IBS (irritable bowel syndrome) Intertrigo Lumbar spondylolysis Mixed hyperlipidemia Non-healing ulcer of buttock with fat layer exposed Postural hypotension Rectus diastasis of lower abdomen Recurrent infections RSD (reflex sympathetic dystrophy) Seasonal allergies Sleep apnea Tarsal tunnel syndrome Ulceration, vulva UTI (urinary tract infection) Vasodepressor syncope Vitamin deficiency Home Medications ergocalciferol (vitamin D2) 50,000 unit PO QWEEK 06/19/13 [History Last Taken Unknown] levothyroxine 50 mcg PO DAILY 06/19/13 [History Last Taken 11/04/20 05:30] omeprazole 40 mg PO DAILY 06/19/13 [History Last Taken 11/04/20 05:30] biotin 10 mg PO DAILY 12/22/13 [History Last Taken Unknown] calcium citrate-vitamin D3 6 tab PO DAILY 06/23/17 [History Last Taken Unknown] cyanocobalamin (vitamin B-12) 500 mcg PO DAILY 06/23/17 [History Last Taken Unknown] tizanidine 4 mg PO BID 06/23/17 [History Last Taken 10/22/18] multivitamin with minerals 1 ea PO DAILY 12/25/18 [History Last Taken Unknown] polyethylene glycol 3350 17 gram/dose oral powder 17 g PO DAILY PRN #119 g 01/04/19 [Rx Last Taken Unknown] trazodone 50 mg tablet 100 mg PO QHS PRN 04/26/19 [History Last Taken Unknown] zonisamide 100 mg capsule 400 mg PO QHS cap 04/26/19 [History Last Taken Unknown] duloxetine 60 mg capsule,delayed release 120 mg PO DAILY cap 05/14/20 [History Last Taken Unknown] Allergy/AdvReac Type Severity Reaction Status Date / Time Penicillins [PCN] Allergy Rash Verified 01/14/21 10:06 silicone [Silicone] Allergy Rash Verified 01/14/21 10:06 hydrochlorothiazide AdvReac Other Verified 01/14/21 10:06 Robcios-Mrv-Jar Reductase AdvReac Other Verified 01/14/21 10:06 Inhibitor topiramate [From Topamax] AdvReac Chest Verified 01/14/21 10:06 tightness Family History Mother Diabetes Cancer Hypertension Heart disease Angina at rest Arthritis High cholesterol Kidney disease Father Heart disease Hypertension Anemia Anxiety Arthritis High cholesterol Psychiatric care Suicide attempt Brother Hypertension Asthma Alcoholism Anxiety Arthritis Psychiatric care Suicide attempt Surgical History History of excision of lesion History of foot surgery Hx of cholecystectomy Hx of gastric bypass Hx of hysterectomy I &D right buttock abscess L2-5 medial branch radiofrequency ablation (~10/13/17) Social History Smoking Status: Current every day smoker second hand exposure: No alcohol intake: never substance use type: does not use caffeine: Yes what type of physical activity do you participate in: walking seatbelt use: always additional social history: DOES NOT USE ASPIRIN DOES NOT USE IBUPROFEN ROS ROS ED Constitutional Constitutional ED: Denies chills or fever(s) Eyes Eyes: Denies change in vision or diplopia ENT ENT ED: Denies rhinorrhea or sore throat Cardiovascular Cardiovascular: Denies chest pain or palpitations Respiratory/Chest Respiratory/Chest: Denies cough or dyspnea Gastrointestinal Gastrointestinal: Reports nausea; Denies abdominal pain, diarrhea or vomiting Genitourinary Genitourinary ED: Denies dysuria or hematuria Musculoskeletal Musculoskeletal: Reports extremity pain; Denies back pain or neck pain Integumentary Denies abscess or rash Neurologic Neurologic: Reports headache(s); Denies weakness Psychiatric Psychiatric: Reports anxiety and suicidal thoughts EXAM Physical Exam Const Vital Signs: 01/16/21 16:57 Temperature 98.4 F Temperature Source Oral Pulse Rate 85 Respiratory Rate 16 Blood Pressure 131/93 H Blood Pressure Mean 105 Pulse Ox 100 Oxygen Delivery Method Room Air Positive well nourished and well developed General Appearance ED: well developed and NAD HEENT Reports moist mucous membranes HEENT Narrative: Tender occipital scalp. No outward signs of trauma, no crepitance or depression, no lacerations. normocephalic, trauma and tenderness Throat: other Other Details: No signs of facial trauma. No hemotympanum or CSF otorhinorrhea. No dick sign or periorbital ecchymosis. Eyes PERRL and EOMs intact bilaterally Neck full ROM and supple General: Negative for tenderness Resp normal respiratory effort and clear to auscultation bilaterally Cardio regular rate, regular rhythm and no murmurs GI non-tender and non-distended Auscultation: normoactive bowel sounds Palpation: soft Back/Spine no CVA tenderness General Back: other FROM Extremity Extremity Narrative: Mildly tender skin-colored subcutaneous nodule medial left lower morgan consistent with hematoma/contusion where patient indicates she had 1. General Extremety ED: Yes tenderness; Negative for edema or pulses abnormal General Extremity: Negative for edema or pulses abnormal Neuro oriented x3 and CN's II-XII intact bilaterally Sensorium / Orientation: awake and alert Sensory Exam: other No gross sensory deficits Motor Exam: strength 5/5 throughout Skin no wounds Rashes: No rashes noted MDM MDM MDM Narrative Medical decision making narrative: Patient indicates she recently had a Doppler ultrasound of her lower extremities that was negative for DVT. She is not anticoagulated. CT of the head was obtained and is negative for anything acute. I had social work speak with the patient, she confirms that she is not suicidal and is just anxious regarding all of the pain that she is in, some acute and some chronic as noted. An appointment at the counseling center was made for 10 AM Tuesday morning, patient is comfortable with that plan. Radiography Diagnostic Testing: Radiology Impression Brain CT 01/16/21 17:34 IMPRESSION: No acute intracranial abnormality. Electronically Signed: Jean Paul Rosales MD at 18:24 EDT Tel , Service support , Discharge Plan Triage Chief Complaint: Head Injury ED Provider: Cornelio Bauer Dx/Rx/DC Orders Clinical Impression: Head injury, closed, with brief LOC, Fall, accidental, Chronic pain, Acute reaction to situational stress Instructions: ED Head Injury (Adult) Prescriptions: No Action polyethylene glycol 3350 [Miralax] 17 gram/dose powder 17 g PO DAILY PRN (Reason: constipation) Qty: 119 RF: 1 levothyroxine 50 MCG tablet 50 mcg PO DAILY RF: 0 omeprazole 40 MG capsule 40 mg PO DAILY RF: 0 ergocalciferol (vitamin D2) 50,000 UNIT capsule 50,000 unit PO QWEEK RF: 0 duloxetine 60 mg capsule,delayed release(DR/EC) 120 mg PO DAILY RF: 0 biotin 1 MG capsule 10 mg PO DAILY RF: 0 cyanocobalamin (vitamin B-12) 1,000 MCG tablet 500 mcg PO DAILY RF: 0 tizanidine 4 MG capsule 4 mg PO BID RF: 0 calcium citrate-vitamin D3 1 EACH tablet 6 tab PO DAILY RF: 0 multivitamin with minerals 1 EACH tablet 1 ea PO DAILY RF: 0 zonisamide 100 mg capsule 400 mg PO QHS RF: 0 trazodone 50 mg tablet 100 mg PO QHS PRN (Reason: Sleep) RF: 0 Primary Care Provider: Ronnell Moreno Referrals: Counseling,Center [GROUP OF PHYSICIANS] - 01/19/21 10:00 am Ronnell Moreno MD [Primary Care Provider] - 1 Week if not improving Disposition Disposition: Home, self care
--- NOTE | 2021-01-16 19:47 | CM.ED ---
SOCIAL WORK Referral Source: Dr. Bauer Reason for Consult: Mental Health Referral/Resources Chief Compliant: Patient presents to ER due to fall off a hover board on Tuesday. Patient reported hit her head with LOC, having headache and nausea/vomiting. Marital/Social History: Living Situation: Home with 15.5 year old daughter Education and Employment History: Patient reports some college courses completed. Patient employed at [employer]. Mental Health Treatment/History: Patient reports history of anxiety and depression and is treated with Cymbalta. Patient states was involved with counseling in the past, but counselor retired. Patient states I know I need to get back into it. I've just had so much going on. Triggers/Stressors: Patient reports had gastric bypass surgery in 2012. Patient states has had recent skin removal surgeries starting with her stomach in June, right leg in August and left leg in October. Patient reports left leg has been taking longer to heal and I have so much pain. Patient states back in 1998 injured left leg and believes that is why it is giving me more problems. Patient reports is connected with pain management. Substance Abuse History: Patient reports after gastric bypass surgery replaced my sugar with alcohol. Patient reports after conversations with medical team stopped drinking. Patient denies any current use. Risk to Self/Others: Suicidal- Patient reports suicidal ideation at times due to the pain. Patient states, I know I would never do it. Patient voiced protective factors being her daughter. Patient denies any plan or intent. Homicidal- Patient denies any homicidal ideation. Mental Status Exam: Orientation- A&Ox3 Memory- fair Appearance/General Behavior: clean/appropriate Mood/Affect: tearful at times Communication Pattern: responds to questions Thought Process: linear, forward thinking General Intellectual Functioning: Average Judgment: fair Assessment: Met with patient in room. Introduced role and reason for referral. Patient open to speaking with this worker. Patient gave overview of her physical and mental health. Patient reports has been going through a lot of surgeries since June. Patient states today went over a plan with her doctor and believes her thoughts are getting the best of her. Patient with history of anxiety and depression and states has not been in counseling for some time. Patient believes she would benefit from counseling services again. Patient fell and hit her head on Tuesday while riding a hover board. Patient states, I just felt like something was wrong, I've just been in so much pain. Patient with recent skin removal surgery in October and states leg has been slow to heal and has been dealing with swelling. Dr. Bauer reviewed negative results from scans. Patient feeling more at ease after hearing results. Discussed options for mental health services. Reviewed [facility]. Patient requesting intake appointment. Referral faxed to [facility] with request for 10am intake appointment on 01/19/21. SW Will follow up on Tuesday. Plan: Home with referral for intake appointment at [facility] 01/19/21 @ 10am [facility] [place], [place]
== END 2021-01-16 19:57 | disposition home or self-care (01) ==
PROVIDERS: Emergency Provider Emergency Medicine; PCP Family Medicine
DX: S06.9X9A Unspecified intracranial injury with loss of consciousness of unspecified duration, initial encounter (principal); G89.29 Other chronic pain; F43.0 Acute stress reaction; E03.9 Hypothyroidism, unspecified; F17.200 Nicotine dependence, unspecified, uncomplicated; W19.XXXA Unspecified fall, initial encounter; Z98.84 Bariatric surgery status; Z86.718 Personal history of other venous thrombosis and embolism; Z79.899 Other long term (current) drug therapy
CPT/HCPCS: 70450; 99285

== ENCOUNTER → 2021-01-21 15:58 | Outpatient (CLI) | payer MEDICARE, MEDICAID, SELFPAY ==
[2021-01-21 14:37] VITALS: BMI 23.1
== END ==
PROVIDERS: PCP Family Medicine; Referring Provider Nurse Practitioner Family; Visit Provider Nurse Practitioner Family
DX: T81.89XA Other complications of procedures, not elsewhere classified, initial encounter (principal)
CPT/HCPCS: 87070; 87075; 87077; 87186; 87205

== ENCOUNTER 2021-02-11 12:09 | Emergency (ER) | payer MEDICARE, MEDICAID, SELFPAY ==
[2021-02-05 13:53] VITALS: BMI 23.1
[2021-02-11] VITALS (8 sets, daily range): BP systolic 113–173; BP diastolic 75–116; PULSE 85–92; RESP 14–18; TEMP 36; O2SAT 95–99; BMI 20.9
--- NOTE | 2021-02-11 12:49 | ED.VIS.FEGU ---
HPI HPI - Female History of Present Illness Chief Complaint: Female C/O Informant: patient Pain Pain: Positive for Pelvic Pain Bleeding Issue: Negative for Vaginal bleeding Associated Symptoms Associated Symptoms: Negative for Dysuria and Frequency Sexually: Positive for Active Narrative Narrative: 45-year-old female past medical history of migraine headaches and hypothyroidism. Prior gastric bypass with well over 150 pound weight loss. Also cholecystectomy. States last night she smoked some weed and had intercourse with her . She is concerned that there may be something inside of her. She denies any vaginal bleeding or discharge. She denies any dysuria. She was also concerned it may have been multiple people involved. Prior similar symptoms: No Recent Illness/Hospitalization: No [facility] Medical History (Updated 02/11/21 @ 14:[address] Rickey Angulo MD) Abdominal panniculus Abscess of buttock, right Anemia Anxiety Anxiety and depression Arthritis Bone fracture Chronic pain Essential hypertension Excessive body weight loss Excessive skin and subcutaneous tissue Frequent headaches Gallstones GERD (gastroesophageal reflux disease) Heart murmur Hemorrhoids History of DVT (deep vein thrombosis) Hives Hypoglycemia Hypothyroidism IBS (irritable bowel syndrome) Intertrigo Lumbar spondylolysis Mixed hyperlipidemia Non-healing ulcer of buttock with fat layer exposed Postural hypotension Rectus diastasis of lower abdomen Recurrent infections RSD (reflex sympathetic dystrophy) Seasonal allergies Sleep apnea Tarsal tunnel syndrome Ulceration, vulva UTI (urinary tract infection) Vasodepressor syncope Vitamin deficiency Home Medications ergocalciferol (vitamin D2) 50,000 unit PO QWEEK 06/19/13 [History Last Taken Unknown] levothyroxine 50 mcg PO DAILY 06/19/13 [History Last Taken 11/04/20 05:30] omeprazole 40 mg PO DAILY 06/19/13 [History Last Taken 11/04/20 05:30] biotin 10 mg PO DAILY 12/22/13 [History Last Taken Unknown] calcium citrate-vitamin D3 6 tab PO DAILY 06/23/17 [History Last Taken Unknown] cyanocobalamin (vitamin B-12) 500 mcg PO DAILY 06/23/17 [History Last Taken Unknown] tizanidine 4 mg PO BID 06/23/17 [History Last Taken 10/22/18] multivitamin with minerals 1 ea PO DAILY 12/25/18 [History Last Taken Unknown] polyethylene glycol 3350 17 gram/dose oral powder 17 g PO DAILY PRN #119 g 01/04/19 [Rx Last Taken Unknown] trazodone 50 mg tablet 100 mg PO QHS PRN 04/26/19 [History Last Taken Unknown] zonisamide 100 mg capsule 400 mg PO QHS cap 04/26/19 [History Last Taken Unknown] duloxetine 60 mg capsule,delayed release 120 mg PO DAILY cap 05/14/20 [History Last Taken Unknown] cefdinir 300 mg capsule 300 mg PO BID 21 Days #42 cap 01/28/21 [Rx Last Taken Unknown] doxycycline monohydrate 100 mg capsule 100 mg PO BID 21 Days #42 cap 01/28/21 [Rx Last Taken Unknown] Allergy/AdvReac Type Severity Reaction Status Date / Time Penicillins [PCN] Allergy Rash Verified 02/11/21 12:14 silicone [Silicone] Allergy Rash Verified 02/11/21 12:14 hydrochlorothiazide AdvReac Other Verified 02/11/21 12:14 Wkexvoh-Snr-Vwj Reductase AdvReac Other Verified 02/11/21 12:14 Inhibitor topiramate [From Topamax] AdvReac Chest Verified 02/11/21 12:14 tightness Family History Mother Diabetes Cancer Hypertension Heart disease Angina at rest Arthritis High cholesterol Kidney disease Father Heart disease Hypertension Anemia Anxiety Arthritis High cholesterol Psychiatric care Suicide attempt Brother Hypertension Asthma Alcoholism Anxiety Arthritis Psychiatric care Suicide attempt Surgical History History of excision of lesion History of foot surgery Hx of cholecystectomy Hx of gastric bypass Hx of hysterectomy I &D right buttock abscess L2-5 medial branch radiofrequency ablation (~10/13/17) Social History Smoking Status: Current every day smoker tobacco type: cigarettes second hand exposure: No alcohol intake: never substance use type: does not use caffeine: Yes what type of physical activity do you participate in: walking seatbelt use: always additional social history: DOES NOT USE ASPIRIN DOES NOT USE IBUPROFEN ROS ROS ED ROS Narrative Patient denies any recent nausea, vomiting, diarrhea or fever. No vaginal bleeding or discharge. Review of Systems ROS Unobtainable: Denies due to encephalopathy Constitutional Constitutional ED: Denies fever(s) Eyes Eyes: Denies change in vision ENT ENT ED: Denies ear pain or sore throat Cardiovascular Cardiovascular: Denies chest pain Respiratory/Chest Respiratory/Chest: Denies cough or dyspnea Gastrointestinal Gastrointestinal: Denies abdominal pain, constipation, diarrhea, melena, nausea or vomiting Genitourinary Genitourinary ED: Denies dysuria or hematuria Musculoskeletal Musculoskeletal: Denies myalgias Integumentary Denies rash Neurologic Neurologic: Denies headache(s) Psychiatric Psychiatric: Denies depression Endocrine Endocrinology: Denies polyuria Hematologic/Lymphatic Hematologic/Lymphatic: Denies easy bruising Allergic/Immunologic Allergic/Immunologic ED: Denies urticaria EXAM Physical Exam Narrative Exam Narrative: Well-appearing middle-aged female no acute distress. Vital signs stable afebrile. 8-year-old child present in room with her that I believe is her niece. Exam unremarkable. Const Vital Signs: 02/11/21 12:10 02/11/21 14:05 Temperature 96.8 F L Temperature Source Temporal Pulse Rate 92 Respiratory Rate 16 18 Blood Pressure 173/116 H Blood Pressure Mean 135 Pulse Ox 97 Oxygen Delivery Method Room Air Positive well nourished and well developed; Negative for obese General Appearance ED: well developed Nutritional Appearance: Negative for obese HEENT Reports moist mucous membranes Negative for trauma or tenderness Eyes PERRL and EOMs intact bilaterally Neck no lymphadenopathy, supple and no JVD Thyroid: Negative for tender Chest Wall inspection of chest normal and palpation of chest normal Resp normal respiratory effort and clear to auscultation bilaterally Cardio regular rate, regular rhythm, no murmurs and no JVD GI normal to inspection, nondistended, normoactive bowel sounds, soft to palpation, non-tender and non-distended no CVA tenderness Narrative: Pelvic exam is unremarkable. Female nurse present in the room. External exam unremarkable. Speculum exam there is no vaginal bleeding or discharge. No foul bodies. Patient states she has had a hysterectomy and there was no cervix noted. Bimanual exam fraction felt no masses or abnormalities. External Female Exam: normal appearance of the urethra; Negative for abnormal introitus or inguinal lymphadenopathy Back/Spine no CVA tenderness Extremity normal to inspection and full ROM General Extremety ED: Negative for edema or tenderness General Extremity: Negative for edema Neuro oriented x3 Sensorium / Orientation: alert Psych Psych Narrative: Mental status consistent with someone with underlying psychiatric illness. But she is not acutely psychotic. Skin no rashes or lesions noted MDM MDM MDM Narrative Medical decision making narrative: Middle-aged female who may have underlying psychiatric illness. Is making accusations and complaints that do not seem to be valid. Patient has both a father and brother that she believes was diagnosed with paranoid schizophrenia. She may very well have underlying psychiatric illness. She is not suicidal or homicidal but the 8-year-old with her states that she is not functioning well at home and think she needs help. She has been seen before by our social services assistant but the patient never followed up with the counseling center. ED mental health labs will be obtained. Patient will be seen by our social services assistant and at this time most likely will need to be transferred and admitted to a psychiatric facility for further evaluation and work-up for suspected schizophrenia. Repeat exam at 3:30 PM patient is doing well. We are waiting on her other ED mental health labs. Should be checked out the afternoon physician and were awaiting accepting psychiatric facility and eventual transfer. Tox screen, and Covid pending. Will be checked by the afternoon physician. Lab Data Attestation: I reviewed the patient's lab results. Lab results narrative: CBC unremarkable white count of 5. Hemoglobin 13. EKG normal sinus rhythm rate [address] or ischemia. This was done for psychiatric facility admission. Chemistries unremarkable except for potassium low at 3.0. Labs: Laboratory Results - last 24 hr 02/11/21 02/11/21 14:15 14:15 WBC 5.0 RBC 4.46 Hgb 13.4 Hct 39.9 MCV 89.5 MCH 30.0 MCHC 33.6 RDW Std Deviation 48.2 H RDW Coeff of [place] 14.7 H Plt Count 250 MPV 9.8 Immature Gran % (Auto) 0.200 Neut % (Auto) 51.7 Lymph % (Auto) 38.4 [place] % (Auto) 7.3 Eos % (Auto) 1.8 Baso % (Auto) 0.6 Absolute Neuts (auto) 2.6 Absolute Lymphs (auto) 1.90 Nucleated RBC % 0 Sodium 142 Potassium 3.0 L Chloride 108 H Carbon Dioxide 29.0 Anion Gap 5 BUN 6 L Creatinine 0.66 Estim Creat Clear Calc 89.98 Est GFR (MDRD) Af Amer 126 Est GFR (MDRD) Non-Af 104 BUN/Creatinine Ratio 9.2 L Glucose 89 Calcium 8.8 EKG Initial EKG: Attestation: I personally reviewed and interpreted this EKG as follows: Interpretation: Sinus Rhythm and No Acute Injury Pattern Comments: Normal sinus rhythm rate [address] nor ischemia nor dysrhythmia. Prior EKG tracings: not available for review Prior: No Prior Discharge Plan Triage Chief Complaint: Female C/O ED Provider: Rickey Angulo Dx/Rx/DC Orders Clinical Impression: Acute (undifferentiated) schizophrenia Prescriptions: No Action polyethylene glycol 3350 [Miralax] 17 gram/dose powder 17 g PO DAILY PRN (Reason: constipation) Qty: 119 RF: 1 doxycycline monohydrate 100 mg capsule 100 mg PO BID 21 Days Qty: 42 RF: 1 cefdinir 300 mg capsule 300 mg PO BID 21 Days Qty: 42 RF: 1 levothyroxine 50 MCG tablet 50 mcg PO DAILY RF: 0 omeprazole 40 MG capsule 40 mg PO DAILY RF: 0 ergocalciferol (vitamin D2) 50,000 UNIT capsule 50,000 unit PO QWEEK RF: 0 duloxetine 60 mg capsule,delayed release(DR/EC) 120 mg PO DAILY RF: 0 biotin 1 MG capsule 10 mg PO DAILY RF: 0 cyanocobalamin (vitamin B-12) 1,000 MCG tablet 500 mcg PO DAILY RF: 0 tizanidine 4 MG capsule 4 mg PO BID RF: 0 calcium citrate-vitamin D3 1 EACH tablet 6 tab PO DAILY RF: 0 multivitamin with minerals 1 EACH tablet 1 ea PO DAILY RF: 0 zonisamide 100 mg capsule 400 mg PO QHS RF: 0 trazodone 50 mg tablet 100 mg PO QHS PRN (Reason: Sleep) RF: 0 Primary Care Provider: Ronnell Moreno Referrals: Ronnell Moreno MD [Primary Care Provider] -
--- NOTE | 2021-02-11 14:22 | EKG12_ITS ---
Test Reason : Blood Pressure : / mmHG Vent. Rate : 082 BPM Atrial Rate : 082 BPM P-R Int : 118 ms QRS Dur : 094 ms QT Int : 416 ms P-R-T Axes : 084 020 061 degrees QTc Int : 486 ms Normal sinus rhythm Normal ECG Confirmed by BETTIE CASTILLO, ZACK ([id number]), editor sound LUCINDA FOSS ([id number]) on 02/12/2021 12:57:34 PM Referred By: BROOKE/WILLIAM Confirmed By:ROLAN ALEXANDRE MD
--- NOTE | 2021-02-11 14:35 | CM.ED ---
SOCIAL WORK Referral Source: Nurse Reason for Consult: Mental Health Informed patient presented to ER stating something in my vagina. Patient with flight of ideas, paranoid. Patient has 8 year old niece in room. Patient had reported to physician about smoking weed. Patient voiced concerns to nursing that they may have given me something. Met with patient and 8 year old niece, Asad Cardenas in room. Patient known to this worker from previous visit in January. Patient was referred to [facility]. Patient reports went to intake appointment, but did not follow up with program and I should have. Patient and niece report patient hearing and seeing things. Patient stating, I can't function. Niece stating well you hang out with my uncle and mom. Patient tearful in room. Patient admits to smoking weed last night. Niece reported her name to this worker and states stays with her grandmother, Shannan Connolly. Patient reports babysits her niece for her vkqemx-dr-jqo. Patient states is currently from , [place]. Inquired if Shannan able to come picker tender helper niece from hospital. Patient and niece attempting to contact Shannan at this time. Contact information for Shannan Connolly [phone]. Patient reports does have a 15 year old daughter, Xochitl Rivera who is currently with her father, Dangelo Rivera. Patient concerned stating, I have court tomorrow. I have to be there. Explained court can be contacted to update on patient's need for hospitalization. Patient in agreement with this. HRO, Ya Cardoza updated and will assist with contacting court for patient. Collaboration with Dr. Angulo. Patient [place] Slipped at this time. Call to Shannan Connolly. Shannan nya has custody of Asad Cardenas and patient is my director security risk management. Shannan fay Asad Cardenas's mother is her daughter, Lois Connolly and son is patient's , Anirudh. Shannan faye will be heading to hospital to picker tender helper Akyra Call to [facility], report made to Hiwot [phone] regarding concerns for niece, Akyra (as patient babysits for niece) and patient's 15 year old daughter in the home. Informed Hiwot, patient is requiring inpatient psych hospitalization. Hiwot provided with names and contact information for all parties involved in care of children. Florin George, MANAGER TELECOM, PROMOTION SPECIALIST
--- NOTE | 2021-02-11 15:00 | CM.ED ---
SOCIAL WORK Referral Source: Dr. Angulo Reason for Consult: Mental Health Eval Chief Compliant: Patient presents by walk-in complaining of something in my vagina. Patient reported to physician had intercourse with and smoked weed last evening. Patient with flight of ideas, paranoia. Patient's 8 year old niece in room reporting patient is seeing and hearing things. Patient confirmed what niece is reporting. Patient has been [place] Slipped. Marital/Social History: Living Situation: Home with 15.5 year old daughter, Xochitl Rivera Education and Employment History: Patient reports some college courses completed Mental Health Treatment/History: Patient reports history of anxiety and depression and is treated with Cymbalta. Patient states was involved with counseling in the past, but counselor retired. Patient was referred to [facility] upon last visit in January. Patient states attended intake appointment, but did not follow up. Patient states I should have. Patient reports family history of schizophrenia- father and brother. Triggers/Stressors: social stressors, Patient reporting I don't know what is real. They are doing things to my phone. Substance Abuse History: Patient reports history of alcohol use. Patient reports marijuana use, last use last night. Risk to Self/Others: Suicidal- Patient reported suicidal ideation upon visit in January. Patient denies any current. Patient tearful stating, I just don't know anything. Homicidal- Patient denies any homicidal ideation. Mental Status Exam: Orientation- A&Ox3 Memory- fair Appearance/General Behavior: disheveled Mood/Affect: tearful, depressed, anxious, bizarre Communication Pattern: responds to questions, rambling, flight of ideas Thought Process: reports auditory and visual hallucinations, paranoid General Intellectual Functioning: Average Judgment: poor Assessment: Met with patient and 8 year old niece in room. Patient looking to nieceAsad Ronald to explain. Niece stating patient is seeing and hearing things. Patient reports family history of schizophrenia. Patient with history of depression and anxiety. Patient was referred to [facility] and attended intake appointment, but did not follow up with program. Patient anxious and tearful during assessment. Patient stating, I can't function. Collaboration with Dr. Angulo. Patient has been [place]lipped. This worker to facilitate placement. Report made to [facility] due to concerns, spoke with Hiwot. Plan: Referral to inpatient psych D. Sotcan, LEAD ANDROID DEVELOPER, PHOTOGRAPHS CURATOR
[2021-02-11 15:23] LABS: Absolute Neutrophil Count 2.6 X10^3/uL (2.0-7.7); Basophil# 0.03 X10^3/uL; Basophil% 0.6 % (0-1); Eosinophil# 0.09 X10^3/uL; Eosinophils% 1.8 % (0-5); Hematocrit 39.9 % (37-47); Hemoglobin 13.4 g/dL (12.0-15.0); Lymphocyte % 38.4 % (19-41); Mean Corp Hgb Conc 33.6 g/dL (32-36); Mean Corpuscular Volume 89.5 fL (81-99); Mean Platelet Vol. 9.8 fl (6.2-12.0); Monocyte# 0.36 X10^3/uL; Monocyte% 7.3 % (0-10); NRBC Flagged by Analyzer 0 % (0-5); Neutrophil # 2.56 X10^3/uL (2.7-7.7); Neutrophil % 51.7 % (47-70); Platelet Count 250 K/mm3 (150-450); RBC Distribution Width CV 14.7 % (11.6-14.6); RBC Distribution Width SD 48.2 fl (35.1-43.9); Red Blood Count 4.46 M/mm3 (4.2-5.4)
[2021-02-11 15:35] LABS: Anion Gap 5 (5-15); BUN 6 mg/dL (7-18); BUN/Creat Ratio 9.2 RATIO (10-20); Calcium,Total 8.8 mg/dL (8.5-10.1); Chloride 108 mmol/L (98-107); Creatinine, Serum 0.66 mg/dL (0.55-1.02); EST Glomerular Filtration Rate 104 mL/min (>60); Est Glom Filt Rate - Afr Amer 126 mL/min (>60); Estimated Creatinine Clearance 89.98 ml/min; Glucose 89 mg/dL (74-106); Sodium Level 142 mmol/L (136-145)
[2021-02-11 15:57] LABS: Internal QC Validated? YES +Cl - CLEAR BKGD; Pregnancy, Serum, hCG Quali. NEGATIVE Negative
[2021-02-11] MEDS: Potassium Chloride Oral Tablet 20 MEQ 40 MEQ PO (16:41)
[2021-02-11 17:23] LABS: Amphetamine Urine VISTA POSITIVE (<1000 ng/mL); Barbiturate Urine VISTA NEGATIVE (< 200 ng/mL); Benzodiazepine Urine VISTA NEGATIVE (< 200 ng/mL); Cocaine Urine VISTA NEGATIVE (< 300 ng/mL); Ecstacy Urine VISTA NEGATIVE (< 500 ng/mL); Methadone Urine VISTA NEGATIVE (< 300 ng/mL); PCP Urine VISTA NEGATIVE (< 25 ng/mL); THC Urine VISTA POSITIVE (< 50 ng/mL); Vista UDS pH Range 6
--- NOTE | 2021-02-11 18:01 | CM.ED ---
SOCIAL WORK Referral faxed and called to [facility]. Pending review at this time. Florin George, STEEL SAMPLER, FRONT OFFICE ATTENDANT
--- NOTE | 2021-02-11 19:08 | CM.ED ---
SOCIAL WORK Call from Marylu with [facility]. Marylu requesting copy of [place] and states will call doctor at this time. Copy of [place] faxed. Florin George, CRISIS WORKER, TEASEL SETTER
--- NOTE | 2021-02-11 19:24 | CM.ED ---
SOCIAL WORK Call from Marylu with [facility]. Patient accepted by Dr. Telles to the Adult Unit. Nurse to call report to [phone]. [place] to set up transport. Patient and staff portia. Florin George MSW, ASSEMBLER DRY CELL AND BATTERY
[2021-02-11] MEDS: Ziprasidone IM 20 MG/ML VIAL IM (20:10)
--- NOTE | 2021-02-11 20:40 | ED.RN ---
pt screaming in room this nurse along with li galindo rn, jl peck rn, and officer romaine in room with pt. pt stating i heard her talking about the sex ring out there. and i know you all are laughing at me, i just want to kill myself. just let me kill myself. pt crouched in corner of the room on the floor. pt also stating i know those are government agents out there watching us right now. they are watching me, and watching us all right now. pt not compliant with getting back in bed. siddhartha peck rn, talked calmy to pt and assited with pt getting back in bed. pt then placed in four point restraints.
--- NOTE | 2021-02-11 20:46 | CM.ED ---
SOCIAL WORK Patient escalated and required four point restraints and Geodon. This worker to room. Patient tearful and paranoid stating, there are federal agents, Kat told me about the sex ring. Patient informed of tox screen results. Patient stating, I think they injected me with something last night. I felt it. Much emotional support provided. Patient calm upon leaving room. Call to [facility] to update, spoke with Marylu. Marylu spoke with Dr. Telles. Dr. Telles requesting patient be re-evaluated when she wakes up. Staff updated. Florin George, MEMBERSHIP COORDINATOR, COILER
[2021-02-12] VITALS: RESP 14
[2021-02-12 01:00] VITALS: BP 120/71; PULSE 89; RESP 16; O2SAT 99
== END 2021-02-12 01:34 ==
PROVIDERS: Emergency Medicine; Emergency Provider Emergency Medicine; PCP Family Medicine
DX: F20.3 Undifferentiated schizophrenia (principal); F17.210 Nicotine dependence, cigarettes, uncomplicated; E03.9 Hypothyroidism, unspecified; E78.2 Mixed hyperlipidemia; K21.9 Gastro-esophageal reflux disease without esophagitis; I10 Essential (primary) hypertension; G89.29 Other chronic pain; Z98.84 Bariatric surgery status; Z90.49 Acquired absence of other specified parts of digestive tract
CPT/HCPCS: 80048; 80307; 82077; 84703; 85025; 87426; 93005; 96372; 99285; J3486

== ENCOUNTER → 2022-05-10 | Outpatient (CLI) | payer MEDICARE, MEDICAID, SELFPAY ==
[2022-05-10 12:20] LABS: Ammonia < 10.0 umol/L (11-32)
[2022-05-10 12:44] LABS: Hematocrit 36.6 % (37-47); Hemoglobin 11.5 g/dL (12.0-15.0); Mean Corp Hgb Conc 31.4 g/dL (32-36); Mean Corpuscular Volume 89.3 fL (81-99); Mean Platelet Vol. 9.9 fl (6.2-12.0); Platelet Count 226 K/mm3 (150-450); RBC Distribution Width CV 15.9 % (11.6-14.6); RBC Distribution Width SD 51.9 fl (35.1-43.9); White Blood Count 4.5 K/mm3 (4.4-11.0)
[2022-05-10 12:56] LABS: Hemoglobin A1c 5.4 % (3.8-5.6)
[2022-05-10 13:21] LABS: ALB/GLOB Ratio 0.8 RATIO (0.9-2.4); AST(SGOT) 28 U/L (15-37); Alanine Aminotransfer ALT/SGPT 28 U/L (13-56); Albumin, Serum 2.9 g/dL (3.2-5.0); Alkaline Phosphatase 77 U/L (45-117); Anion Gap 6 (5-15); BUN 13 mg/dL (7-18); Calcium,Total 8.6 mg/dL (8.5-10.1); Chloride 109 mmol/L (98-107); Creatinine, Serum 0.62 mg/dL (0.55-1.02); EST Glomerular Filtration Rate 111 mL/min (>60); Est Glom Filt Rate - Afr Amer 134 mL/min (>60); Globulin 3.5 g/dL (2.2-4.2); Glucose 72 mg/dL (74-106); Iron 22 ug/dL (50-170); Iron Binding Capacity,Total 401 ug/dL (250-450); PERCENT IRON SATURATION 5.5 % (15.0-55.0); Potassium 4.7 mmol/L (3.5-5.1); Protein, Total 6.4 g/dL (6.4-8.2); Sodium Level 140 mmol/L (136-145); T4 Free Direct 0.77 ng/dL (0.76-1.46); Thyroid Stim Hormone (TSH) 2.26 uIU/mL (0.358-3.74); Vitamin B12 441 pg/mL (211-911); Vitamin D,25 Hydroxy 27.8 ng/mL
== END | disposition home or self-care (01) ==
LOC: LAB 11:24
PROVIDERS: PCP Internal Medicine; Referring Provider Counselor Mental Health; Visit Provider Counselor Mental Health
DX: Z79.899 Other long term (current) drug therapy (principal)
CPT/HCPCS: 36415; 80053; 82140; 82306; 82607; 82746; 83036; 83540; 83550; 84439; 84443; 84481; 85027

== ENCOUNTER → 2022-05-26 | Outpatient (CLI) | payer MEDICARE, MEDICAID, SELFPAY | END | disposition home or self-care (01) | LOC: LAB 15:18 | PROVIDERS: PCP Internal Medicine; Visit Provider Counselor Mental Health | DX: F19.10 Other psychoactive substance abuse, uncomplicated (principal) ==

== ENCOUNTER 2022-08-19 15:21 | Emergency (ER) | payer MEDICARE, MEDICAID, SELFPAY ==
[2022-08-19 15:22] VITALS: BP 163/135; PULSE 77; RESP 16; TEMP 36.4; O2SAT 98; BMI 21.6
--- NOTE | 2022-08-19 15:36 | CT_ITS ---
STUDY: CT ABDOMEN AND PELVIS WITH CONTRAST REASON FOR EXAM: Female, 46 years old. PAIN RADIATION DOSAGE (If Supplied By Facility): CTDIvol = ( 8.32 ) mGy, DLP = ( 481.23 ) mGycm TECHNIQUE: Transaxial images were obtained from the dome of the diaphragm to the symphysis pubis without oral contrast. IV 100mL Isovue-300 was administered. Sagittal and coronal images were reconstructed. Individualized dose optimization techniques were used for this CT. COMPARISON: None. FINDINGS: The visualized lung bases are unremarkable. The visualized portions of the heart are within normal limits. 3 cm cyst in the anterior segment of the right lobe of the liver. There is non-visualization of the gallbladder, which may be secondary to either contraction or a prior cholecystectomy. Normal spleen. Normal pancreas. Normal bilateral adrenal glands. Normal right kidney. Normal left kidney. Status post gastric surgery, possibly gastric bypass. Loop of distal ileum in the pelvis demonstrates mild dilatation with wall thickening and surrounding fluid worrisome for an right as. No loculated fluid collection to suggest abscess. No pneumoperitoneum cases perforation. Normal colon. The appendix is visualized and appears normal. Normal abdominal aorta. Normal inferior vena cava. Normal retroperitoneum. Normal urinary bladder. Normal abdominal wall. Normal osseous structures. CT/Abdomen/Pelvis W IV Cont ONLY IMPRESSION: Suspected enteritis in the pelvis with some free fluid but no abscess or perforation. Electronically Signed: Everett Valdivia MD at 16:49 EST ,
--- NOTE | 2022-08-19 15:37 | ED.VIS.GI ---
HPI HPI - GI History of Present Illness Chief Complaint: Abd Pain Narrative Narrative: 46-year-old female past medical history of remote gastric bypass 10 years ago, cholecystectomy, and hysterectomy presents with 45 minutes of epigastric to periumbilical abdominal pain. She states that she had 2 teeth pulled today and took [place] and Tylenol, and began having nausea but no vomiting. She began having sharp stabbing pain throughout her abdomen. She denies any diarrhea. No fevers or chills. No exacerbating or alleviating factors. [facility] Medical History Abdominal panniculus Abscess of buttock, right Anemia Anxiety Anxiety and depression Arthritis Bone fracture Chronic pain Essential hypertension Excessive body weight loss Excessive skin and subcutaneous tissue Frequent headaches Gallstones GERD (gastroesophageal reflux disease) Heart murmur Hemorrhoids History of DVT (deep vein thrombosis) Hives Hypoglycemia Hypothyroidism IBS (irritable bowel syndrome) Intertrigo Lumbar spondylolysis Mixed hyperlipidemia Non-healing ulcer of buttock with fat layer exposed Postural hypotension Rectus diastasis of lower abdomen Recurrent infections RSD (reflex sympathetic dystrophy) Seasonal allergies Sleep apnea Tarsal tunnel syndrome Ulceration, vulva UTI (urinary tract infection) Vasodepressor syncope Vitamin deficiency Home Medications ergocalciferol (vitamin D2) 1,250 mcg (50,000 unit) capsule 50,000 unit PO QWEEK 06/19/13 [History Last Taken Unknown] levothyroxine 50 mcg tablet 50 mcg PO DAILY thyroid 06/19/13 [History Last Taken 11/04/20 05:30] omeprazole 40 mg capsule,delayed release 40 mg PO DAILY reflux 06/19/13 [History Last Taken 11/04/20 05:30] biotin 1 mg capsule 10 mg PO DAILY 12/22/13 [History Last Taken Unknown] calcium citrate 315 mg calcium-vitamin D3 6.25 mcg (250 unit) tablet 6 tab PO DAILY 06/23/17 [History Last Taken Unknown] cyanocobalamin (vitamin B-12) 1,000 mcg tablet 500 mcg PO DAILY 06/23/17 [History Last Taken Unknown] tizanidine 4 mg capsule 4 mg PO BID 06/23/17 [History Last Taken 10/22/18] multivitamin with minerals 1 ea PO DAILY 12/25/18 [History Last Taken Unknown] polyethylene glycol 3350 17 gram/dose oral powder (Miralax) 17 g PO DAILY PRN constipation #119 grams 01/04/19 [Rx Last Taken Unknown] trazodone 50 mg tablet 100 mg PO QHS PRN Sleep 04/26/19 [History Last Taken Unknown] zonisamide 100 mg capsule 400 mg PO QHS migraines 04/26/19 [History Last Taken Unknown] duloxetine 60 mg capsule,delayed release 120 mg PO DAILY pain 05/14/20 [History Last Taken Unknown] cefdinir 300 mg capsule 300 mg PO BID 21 days #42 caps 01/28/21 [Rx Last Taken Unknown] doxycycline monohydrate 100 mg capsule 100 mg PO BID 21 days #42 caps 01/28/21 [Rx Last Taken Unknown] aripiprazole 300 mg suspension, extended rel. intramuscular syringe (Lidyaantonella Cesilia) 300 mg IM QMONTH 02/19/21 [History Last Taken Unknown] benztropine 0.5 mg tablet 0.5 mg PO BID 02/19/21 [History Last Taken Unknown] lamotrigine 150 mg tablet 150 mg PO 02/12/22 [History Last Taken Unknown] dicyclomine 20 mg tablet 40 mg PO TID #21 tabs 08/19/22 [Rx Last Taken Unknown] ondansetron 4 mg disintegrating tablet 4 mg PO Q6H PRN nausea and vomiting #12 tabs 08/19/22 [Rx Last Taken Unknown] Allergy/AdvReac Type Severity Reaction Status Date / Time Penicillins [PCN] Allergy Rash Verified 08/19/22 15:22 silicone [Silicone] Allergy Rash Verified 08/19/22 15:22 hydrochlorothiazide AdvReac Other Verified 08/19/22 15:22 Rlguhmq-YHD-FbJ Reductase AdvReac Other Verified 08/19/22 15:22 Inhibitor [Sihihwn-Vog-Fxv Reductase Inhibitor] topiramate [From Topamax] AdvReac Chest Verified 08/19/22 15:22 tightness Family History Mother Diabetes Cancer Hypertension Heart disease Angina at rest Arthritis High cholesterol Kidney disease Father Heart disease Hypertension Anemia Anxiety Arthritis High cholesterol Psychiatric care Suicide attempt Brother Hypertension Asthma Alcoholism Anxiety Arthritis Psychiatric care Suicide attempt Surgical History History of excision of lesion History of foot surgery History of incision and drainage Hx of cholecystectomy Hx of gastric bypass Hx of hysterectomy I &D right buttock abscess L2-5 medial branch radiofrequency ablation (~10/13/17) Social History Smoking Status: Current every day smoker tobacco type: cigarettes second hand exposure: No alcohol intake: never substance use type: does not use caffeine: Yes what type of physical activity do you participate in: walking seatbelt use: always additional social history: DOES NOT USE ASPIRIN DOES NOT USE IBUPROFEN ROS ROS ED ROS Narrative Constitutional: No fever, no chills. HEENT: No sore throat. No neck pain. No loss of vision. No rhinorrhea. Cardiovascular: No chest pain. No palpitations. No pedal edema. Respiratory: No cough, no shortness of breath. Abdominal: Positive abdominal pain. Mild nausea. No vomiting. Genitourinary: No dysuria. No hematuria. Musculoskeletal: No myalgias. No arthralgias. Neurologic: No headaches. No dizziness. No lightheadedness. Skin: No rash. No change in color. Psychiatric: No depression. No anxiety. EXAM Physical Exam Narrative Exam Narrative: Afebrile. Vital signs noted. HEENT: Normocephalic. Atraumatic. PERRL, EOMI. Neck soft and supple. No point tenderness or step off. Cardiovascular: Regular rate and rhythm. No murmurs, rubs, or gallops appreciated. Respiratory: No tachypnea. Lungs clear to auscultation bilaterally. Gastrointestinal: Abdomen soft, diffuse tenderness with normoactive bowel sounds. No rebound or guarding. Neurological: Awake. Alert. Nonfocal, nonlateralizing. Skin: No rash. Normal color. No pallor. Musculoskeletal: No pedal edema. Full range of motion extremities. Const Vital Signs: 08/19/22 15:22 Temperature 97.6 F L Temperature Source Temporal Pulse Rate 77 Respiratory Rate 16 Blood Pressure 163/135 H Blood Pressure Mean 144 Pulse Ox 98 Oxygen Delivery Method Room Air MDM MDM MDM Narrative Medical decision making narrative: Comprehensive work-up was pursued. I will obtain CBC, CMP, lipase, urinalysis, and CT imaging with IV contrast to rule out obstruction. She was given Reglan initially along with a fluid bolus of normal saline. CBC shows normal white count of 8.8, hemoglobin stable at 11.6, hematocrit 36.3. Normal platelet count of 382. Electrolyte panel shows potassium slightly low at 3.3. BUN normal at 12 with creatinine 0.68. Urinalysis shows 5-10 WBCs but negative nitrites. I do not feel antibiotics are indicated. She is not having dysuria or hematuria. She does have 5 ketones consistent with mild dehydration. She is already taking antibiotics for the tooth extraction that she had today. CT of the abdomen and pelvis does show enteritis in the pelvis. She was given Bentyl for this which has improved her symptoms. At this point in time, I feel she be discharged safely home with follow-up. She was given prescriptions for Bentyl and for Zofran. She will start a clear liquid diet and advance as tolerated. I feel she be discharged safely to follow-up with her primary care provider. Return instructions were reviewed. Disposition is discharged home in stable condition. Lab Data Attestation: I reviewed the patient's lab results. Labs: Laboratory Results - last 24 hr 08/19/22 08/19/22 08/19/22 15:50 15:50 17:10 WBC 8.8 RBC 4.40 Hgb 11.6 L Hct 36.3 L MCV 82.5 MCH 26.4 L MCHC 32.0 RDW Std Deviation 47.8 H RDW Coeff of [place] 15.8 H Plt Count 382 MPV 8.7 Immature Gran % (Auto) 0.200 Neut % (Auto) 70.3 H Lymph % (Auto) 21.3 [place] % (Auto) 5.5 Eos % (Auto) 2.2 Baso % (Auto) 0.5 Absolute Neuts (auto) 6.2 Absolute Lymphs (auto) 1.87 Nucleated RBC % 0 Sodium 140 Potassium 3.3 L Chloride 106 Carbon Dioxide 28.0 Anion Gap 6 BUN 12 Creatinine 0.68 Estim Creat Clear Calc 86.42 Est GFR (MDRD) Af Amer 119 Est GFR (MDRD) Non-Af 99 BUN/Creatinine Ratio 17.5 Glucose 146 H Calcium 9.0 Total Bilirubin 0.20 AST 21 ALT 26 Alkaline Phosphatase 95 Total Protein 7.2 Albumin 3.2 Globulin 4.0 Albumin/Globulin Ratio 0.8 L Lipase 105 Urine Color Yellow Urine Clarity Clear Urine pH 7.0 Ur Specific [place] 1.010 Urine Protein 15 H Urine Glucose (UA) Normal Urine Ketones 5 H Urine Occult Blood Negative Urine Nitrite Negative Urine Bilirubin Negative Urine Urobilinogen Normal Ur Leukocyte Esterase 25 H Urine RBC 0 SEEN Urine WBC 5-10 SEEN Ur Squamous Epith Cells 0-5 SEEN Urine Bacteria 0 SEEN Urine Mucus 0 SEEN Radiography Diagnostic Testing: Clinical Impression(s) from Imaging Studies Abdomen/Pelvis CT 08/19/22 15:36 IMPRESSION: Suspected enteritis in the pelvis with some free fluid but no abscess or perforation. Electronically Signed: Everett Valdivia MD at 16:49 EST , Discharge Plan Triage Chief Complaint: Abd Pain ED Provider: Martínez Funez Dx/Rx/DC Orders Clinical Impression: Enteritis, Abdominal pain, Nausea Instructions: ED Gastroenteritis, Noninfectious, ED Gastroenteritis, Viral (Adult) Prescriptions: New dicyclomine 20 mg tablet 40 mg PO TID Qty: 21 0RF ondansetron 4 mg tablet,disintegrating 4 mg PO Q6H PRN (Reason: nausea and vomiting) Qty: 12 0RF No Action polyethylene glycol 3350 [Miralax] 17 gram/dose powder 17 g PO DAILY PRN (Reason: constipation) Qty: 119 1RF doxycycline monohydrate 100 mg capsule 100 mg PO BID 21 Days Qty: 42 1RF cefdinir 300 mg capsule 300 mg PO BID 21 Days Qty: 42 1RF Abilify Maintena 300 mg suspension,extended rel syring 300 mg IM QMONTH benztropine 0.5 mg tablet 0.5 mg PO BID lamotrigine 150 mg tablet 150 mg PO levothyroxine 50 MCG tablet 50 mcg PO DAILY Label Comments: THYROID omeprazole 40 MG capsule 40 mg PO DAILY Label Comments: REFLUX ergocalciferol (vitamin D2) 50,000 UNIT capsule 50,000 unit PO QWEEK Label Comments: TAKES ON TUESDAY duloxetine 60 mg capsule,delayed release(DR/EC) 120 mg PO DAILY Label Comments: DEPRESSION,PAIN biotin 1 MG capsule 10 mg PO DAILY cyanocobalamin (vitamin B-12) 1,000 MCG tablet 500 mcg PO DAILY tizanidine 4 MG capsule 4 mg PO BID Label Comments: MUSCLE PAIN calcium citrate-vitamin D3 1 EACH tablet 6 tab PO DAILY multivitamin with minerals 1 EACH tablet 1 ea PO DAILY zonisamide 100 mg capsule 400 mg PO QHS trazodone 50 mg tablet 100 mg PO QHS PRN (Reason: Sleep) Primary Care Provider: Mauro Gamboa Referrals: Mauro Gamboa MD [Primary Care Provider] - 3-5 Days if not improving Disposition Disposition: Home, Self Care
[2022-08-19] MEDS: 0.9% Normal Saline 1,000 ML 1000 ML IV (15:57)
[2022-08-19] MEDS: Metoclopramide 10 MG/2 ML Vial IV (15:57)
[2022-08-19 16:07] LABS: Absolute Lymphocyte Count 1.87 X10^3/uL (0.83-4.51); Absolute Neutrophil Count 6.2 X10^3/uL (2.0-7.7); Basophil# 0.04 X10^3/uL; Basophil% 0.5 % (0-1); Eosinophil# 0.19 X10^3/uL; Eosinophils% 2.2 % (0-5); Hematocrit 36.3 % (37-47); Hemoglobin 11.6 g/dL (12.0-15.0); Lymphocyte # 1.87 X10^3/ul (0.83-4.51); Lymphocyte % 21.3 % (19-41); Mean Corpuscular Hgb 26.4 pg (27.0-32.0); Mean Corpuscular Volume 82.5 fL (81-99); Mean Platelet Vol. 8.7 fl (6.2-12.0); Monocyte# 0.48 X10^3/uL; Monocyte% 5.5 % (0-10); NRBC Flagged by Analyzer 0 % (0-5); Neutrophil # 6.18 X10^3/uL (2.7-7.7); Neutrophil % 70.3 % (47-70); Platelet Count 382 K/mm3 (150-450); RBC Distribution Width CV 15.8 % (11.6-14.6); RBC Distribution Width SD 47.8 fl (35.1-43.9); White Blood Count 8.8 K/mm3 (4.4-11.0)
[2022-08-19 16:15] LABS: ALB/GLOB Ratio 0.8 RATIO (0.9-2.4); AST(SGOT) 21 U/L (15-37); Alanine Aminotransfer ALT/SGPT 26 U/L (13-56); Albumin, Serum 3.2 g/dL (3.2-5.0); Alkaline Phosphatase 95 U/L (45-117); Anion Gap 6 (5-15); BUN 12 mg/dL (7-18); BUN/Creat Ratio 17.5 RATIO (10-20); Chloride 106 mmol/L (98-107); Creatinine, Serum 0.68 mg/dL (0.55-1.02); EST Glomerular Filtration Rate 99 mL/min (>60); Est Glom Filt Rate - Afr Amer 119 mL/min (>60); Estimated Creatinine Clearance 86.42 ml/min; Glucose 146 mg/dL (74-106); Lipase 105 U/L (73-393); Potassium 3.3 mmol/L (3.5-5.1); Protein, Total 7.2 g/dL (6.4-8.2); Sodium Level 140 mmol/L (136-145)
[2022-08-19 17:14] LABS: Bacteria 0 SEEN /hpf (None Seen); Mucous, Urine 0 SEEN /hpf (<or=2+); Red Blood Cells-Urine 0 SEEN /hpf (0-5)
[2022-08-19 17:18] LABS: Color, Urine Yellow (Yellow); Glucose, Dipstick Normal (Normal); Ketone-Dipstick 5 mg/dl (Negative); Leukocyte Esterase-Dipstick 25 /ul (Negative); Nitrite-Dipstick Negative (Negative); Occult Blood-Urine Negative /ul (Negative); Protein-Dipstick 15 mg/dl (Negative); Urine Bilirubin Dipstick Negative (Negative); Urine Clarity Clear (Clear); Urine Urobilinogen Normal (Normal)
[2022-08-19] MEDS: Dicyclomine 20 MG/2 ML Vial IM (17:20)
[2022-08-19 17:21] VITALS: RESP 14
[2022-08-19 17:23] LABS: Squamous Epithelial Cells - UA 0-5 SEEN /hpf (5-10); White Blood Cells 5-10 SEEN /hpf (0-5)
[2022-08-19 18:28] VITALS: RESP 16
== END 2022-08-19 18:39 | disposition home or self-care (01) ==
PROVIDERS: Emergency Provider Emergency Medicine; PCP Internal Medicine; Visit Provider Emergency Medicine
DX: K52.9 Noninfective gastroenteritis and colitis, unspecified (principal); I10 Essential (primary) hypertension; E78.2 Mixed hyperlipidemia; Z90.49 Acquired absence of other specified parts of digestive tract; Z90.710 Acquired absence of both cervix and uterus; Z98.84 Bariatric surgery status; R10.33 Periumbilical pain; R10.13 Epigastric pain; F17.210 Nicotine dependence, cigarettes, uncomplicated; Z98.890 Other specified postprocedural states; R11.0 Nausea
CPT/HCPCS: 74177; 80053; 81001; 83690; 85025; 96361; 96372; 96374; 99283; J7030; Q9967; A4216

== ENCOUNTER → 2022-08-25 | Outpatient (CLI) | payer MEDICARE, MEDICAID, SELFPAY ==
[2022-08-25 12:22] LABS: Absolute Neutrophil Count 4.1 X10^3/uL (2.0-7.7); Basophil# 0.04 X10^3/uL; Basophil% 0.7 % (0-1); Eosinophil# 0.07 X10^3/uL; Eosinophils% 1.1 % (0-5); Hematocrit 37.1 % (37-47); Hemoglobin 11.2 g/dL (12.0-15.0); Lymphocyte % 21.3 % (19-41); Mean Corp Hgb Conc 30.2 g/dL (32-36); Mean Corpuscular Hgb 25.1 pg (27.0-32.0); Mean Corpuscular Volume 83.2 fL (81-99); Mean Platelet Vol. 9.1 fl (6.2-12.0); Monocyte# 0.58 X10^3/uL; Monocyte% 9.5 % (0-10); NRBC Flagged by Analyzer 0 % (0-5); Neutrophil # 4.08 X10^3/uL (2.7-7.7); Neutrophil % 66.9 % (47-70); Platelet Count 453 K/mm3 (150-450); RBC Distribution Width CV 15.8 % (11.6-14.6); RBC Distribution Width SD 47.9 fl (35.1-43.9); Red Blood Count 4.46 M/mm3 (4.2-5.4); White Blood Count 6.1 K/mm3 (4.4-11.0)
[2022-08-25 12:52] LABS: Vitamin B12 845 pg/mL (211-911)
[2022-08-25 12:56] LABS: Anion Gap 6 (5-15); BUN 7 mg/dL (7-18); BUN/Creat Ratio 10.4 RATIO (10-20); Calcium,Total 9.1 mg/dL (8.5-10.1); Chloride 102 mmol/L (98-107); Creatinine, Serum 0.68 mg/dL (0.55-1.02); EST Glomerular Filtration Rate 100 mL/min (>60); Est Glom Filt Rate - Afr Amer 121 mL/min (>60); Free T3 3.2 pg/mL (2.18-3.98); Glucose 94 mg/dL (74-106); Potassium 3.1 mmol/L (3.5-5.1); Sodium Level 137 mmol/L (136-145); T4 Free Direct 1.29 ng/dL (0.76-1.46); Thyroid Stim Hormone (TSH) 5.03 uIU/mL (0.358-3.74)
[2022-08-29 15:27] LABS: Vitamin D 1,25-Dihydroxy 94.9 pg/mL (24.8-81.5)
== END | disposition home or self-care (01) ==
LOC: MFPLAB 09:53
PROVIDERS: PCP Family Medicine; Referring Provider Family Medicine; Visit Provider Family Medicine
DX: Z98.84 Bariatric surgery status (principal); E03.9 Hypothyroidism, unspecified; R10.9 Unspecified abdominal pain
CPT/HCPCS: 36415; 80048; 82607; 82652; 84439; 84443; 84481; 85025

== ENCOUNTER 2023-02-21 04:44 | Emergency (ER) | payer MEDICARE, MEDICAID, SELFPAY ==
[2023-02-21 04:44] VITALS: PULSE 87; RESP 16; TEMP 36.2; O2SAT 97; BMI 23.3
--- NOTE | 2023-02-21 04:48 | RAD_ITS ---
EXAM: XR RIGHT SHOULDER COMPLETE, 2 OR MORE VIEWS CLINICAL INDICATION: FALL TECHNIQUE: 4 views. Including scapular Y view. COMPARISON: No relevant prior studies available. FINDINGS: BONES/JOINTS: Unremarkable. No acute fracture. No subluxation. Normal alignment. Preservation of the joint space. No sclerotic or destructive changes observed. SOFT TISSUES: Unremarkable. No soft tissue swelling or gas. No radiopaque foreign body. RAD/Shoulder min 2 Views IMPRESSION: Negative right shoulder x-rays. Electronically Signed: Mayra Melendez MD at 5:26 EDT ,
--- NOTE | 2023-02-21 05:31 | ED.RN ---
PT STATES YOU CAN LAUGH AT ME LATER AND RUNS OUT OF THE DEPARTMENT. NURSES AT DESK QUIETLY CHARTING. DR. HERNADEZ NOTIFIED. NO FURTHER INSTRUCTIONS.
== END 2023-02-21 05:33 | disposition left against medical advice (07) ==
PROVIDERS: Emergency Provider Emergency Medicine; PCP Family Medicine; Visit Provider Emergency Medicine
DX: M25.519 Pain in unspecified shoulder (principal)
CPT/HCPCS: 73030; 99283

== ENCOUNTER 2023-03-02 09:35 | Outpatient (RCR) | payer MEDICARE, MEDICAID, SELFPAY ==
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
--- NOTE | 2023-03-02 11:20 | BH.SGPN.GN ---
Behaviors/Verbalizations/Mental Status: []Eye contact is good. Motor activity is appropriate. Appearance is casual. Speech is WNL. Mood is depressed and anxious. Affect is congruent. Thoughts are linear and logical. No evidence of psychosis. Client Response/Progress/Benefit: []Pt first day in IOP tx, did well to remain an engaged participant AEB providing input during small group discussion and engaging in activity. Activity involved working with peers to answer questions related to psychoeducation on cognitive distortions and practicing reframing distorted thoughts. Pt collaborated with the group to determine the answers. Able to identify the impact distortions has on pt?s mental health and shared learning that she often struggles with more distorted thought patterns than she had realized. Benefited from rehearsing ways to challenge/reframe cognitive distortions and by gaining increased insight into examples/definitions of 10 most common cognitive distortions. Will continue IOP to improve mood management, challenge distorted thought patterns, and prevent decompensation. Narrative Note: []
[2023-03-02 12:03] VITALS: BP 139/84; PULSE 64
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
--- NOTE | 2023-03-02 13:32 | BH.DR.ITP ---
Initial Treatment Plan Patient Information Visit Information: ADMISSION DATE: EXPECTED LOS: 4-6 weeks Problems/Symptoms Problem #1:: Depression Symptom:: Sadness, hopelessness, worthlessness, anhedonia, biological disruption of appetite, decreased concentration, passive thoughts of , recent suicidal ideation Problem #2:: Anxiety Symptom:: Worry, rumination, avoidance, flashbacks, reexperiencing
--- NOTE | 2023-03-03 10:15 | BH.SGPN.GN ---
Behaviors/Verbalizations/Mental Status: []Eye contact is good. Motor activity is appropriate. Appearance is casual. Speech is Appropriate. Mood is stressed. Affect is congruent. Thoughts are linear and logical. No evidence of psychosis. Client Response/Progress/Benefit: [] Pt was an active participant in group discussions. Attentive during psychoeducation on the 4 communication styles and the obstacles to effective communication. Contributed during interactive discussion on the benefits of communicating effectively which included; having one's needs met, helping others get their needs met, and building connection with others. Worked well in small group in which pt and peers identified the benefits and disadvantages to the different communication styles. Pt reports belief they use passive communication which often leads to feeling like her voice is not heard and reinforces worthlessness. Benefited from increased understanding of communication styles and how these can impact effective communication. Will continue in IOP to promote mood stability, increase use of healthy coping skills, and improve daily functioning. ? Narrative Note: []
--- NOTE | 2023-03-03 11:15 | BH.SGPN.GN ---
Behaviors/Verbalizations/Mental Status: []Client alert and oriented, casually dressed and groomed. Eye contact good. Motor activity appropriate. Speech within normal limits. Affect congruent, mood anxious and depressed. Thoughts linear, logical, no signs of hallucinations or delusions Client Response/Progress/Benefit: []Client responded well to session AEB client listening attentively to others and providing input during group discussion. Client did well in the activity to be assertive and ask for feedback. Recognizes if group wasn't assertive in activity, they wouldn't have been successful. Discussed with group communication strategies used to make activity successful. Attentive during psychoeducation on interpersonal DBT skill LEONIDAS. Identified wanting to use more assertive communication by not putting her head down when speaking and using fewer ?you? statements. Client seemed to benefit from increasing awareness of healthy strategies to improve communication. Will continue IOP tx to improve daily functioning, increase mood stability, and prevent decompensation. Narrative Note: []
--- NOTE | 2023-03-03 13:49 | BH.MDN ---
Multi-Disciplinary Note - Note 45-min Individual Time Started:: 09:20 Date: 03/03/23 Eye Contact:: Good Motor Activity:: Appropriate Appearance:: Neat Speech:: Tangential, Rambling Mood:: Anxious, Irritable Affect:: Congruent Thoughts:: Racing Staff Interventions:: rapport building Time Stopped:: 10:00
--- NOTE | 2023-03-03 13:50 | BH.PSA ---
Development & Family of Origin - Family History Family History: Family History (Last Reviewed 08/19/22 @ 15:38 by Martínez Funez MD) Mother Diabetes Cancer Hypertension Heart disease Angina at rest Arthritis High cholesterol Kidney disease Father Heart disease Hypertension Anemia Anxiety Arthritis High cholesterol Psychiatric care Suicide attempt Brother Hypertension Asthma Alcoholism Anxiety Arthritis Psychiatric care Suicide attempt Suicide Assessment Treatment Plan Recommendations
--- NOTE | 2023-03-04 09:00 | BH.SGPN.GN ---
Behaviors/Verbalizations/Mental Status: [] Eye contact is good. Motor activity is appropriate. Appearance is casual. Speech is Appropriate. Mood is anxiety/irritability. Affect is congruent. Thoughts are linear and logical. No evidence of psychosis. Reviewed daily check in sheet and no reports of suicidal ideations or intent. Client Response/Progress/Benefit: [] Pt was an active participant in group discussion. Attentive. Emotion foro today is positive. Mental health win was related to binging to reframe and challenge negative thoughts. I can have bad moments and its OK. Shared that recently if she had a bad moment or set-back she would isolate for the rest of the day. Yesterday she experienced a bad moment took time to process and cope and then was able to get back on track. She mentioned several times communication issues and an overall unhealthy relationship with her which impacts her mental health. I need to work on me so I can make decisions about our future. According to pt her encourages her to stay in her room and can be very mean to her. I'm standing my ground and I'm proud of that ... I want to get back to being me. Progress noted per pt report. Increased coping skills, decreased depression/isolation, and beginning to reframe thoughts. Benefited from group support, encouragement, and feedback. Will continue IOP to prevent decompensation, stabilize mood, and improve functining. Narrative Note: []
--- NOTE | 2023-03-04 10:05 | BH.SGPN.GN ---
Behaviors/Verbalizations/Mental Status: []Pt alert and oriented, casually dressed and groomed. Eye contact good. Motor activity appropriate. Speech within normal limits. Affect congruent, mood anxious and euthymic. Thoughts linear, logical, no signs of hallucinations or delusions. Client Response/Progress/Benefit: []Pt responded well to session, attentive during psychoeducation on SMART goals (Specific, Measurable, Achievable, Realistic, and Time-bound). Participated in an interactive discussion with peers in which they worked together to define what a goal is and the benefits of having goals. Group identified benefits as; gives purpose, improves motivation, improves relationships, and personal growth. Participated in small group discussion identifying barriers to setting goals and following through with goals. Pt identified her personal barriers to include unhealthy people in her support system, distortions, and fear of the unknown. Benefited from increased awareness of benefits and strategies for goal-setting. Pt to continue in IOP to promote mood stability, improve healthy boundaries and conflict resolution with supports, as well as further promote self-care and prevent decompensation. Narrative Note: []
--- NOTE | 2023-03-04 11:10 | BH.SGPN.GN ---
Behaviors/Verbalizations/Mental Status: []Pt alert and oriented, casually dressed, appropriately groomed. Eye contact good. Motor activity appropriate. Speech within normal limits. Affect congruent, mood euthymic. Thoughts linear, logical, no signs of hallucinations or delusions. Client Response/Progress/Benefit: []Pt was engaged during discussion and willing to complete the worksheet challenging them to develop a personal SMART goal. Pt chose the goal of leaving her room for at least a few hours each day. Pt identified barriers which included negative feedback from others, fear, and anxiety. Identified for barrier of negative feedback she can leave positive notes around her house, talk with family, and get out of the house away from negativity. Pt receptive to identifying solutions for these barriers and willing to begin working on this goal. Benefited from this group by developing a short-term SMART goal related to mental health. Will continue IOP to increase healthy coping, challenge distorted thoughts, and prevent decomensation.
--- NOTE | 2023-03-07 10:10 | BH.SGPN.GN ---
Behaviors/Verbalizations/Mental Status: []Client alert and oriented, casually dressed and groomed. Eye contact good. Motor activity appropriate. Speech within normal limits. Affect congruent, mood euthymic. Thoughts linear, logical, no signs of hallucinations or delusions. Client Response/Progress/Benefit: []Client was an active participant in group discussions and activity. Attentive during psychoeducation. Client engaged in activity in which group was able to make connections about how can be easier to find positives in others compared to self. Engaged in interactive discussion on the definition of perspective, how perspective is formed, and why perspective is important in treatment. Client shared her perspective is hopeful about treatment and her future. Client stated having a more hopeful perspective makes her feel more positive and she has more motivation to make positive changes. Will continue in IOP to increase healthy coping skills, improve confidence, and prevent decompensation.
--- NOTE | 2023-03-07 11:20 | BH.SGPN.GN ---
Behaviors/Verbalizations/Mental Status: []Pt alert and oriented, casually dressed and groomed. Eye contact good. Motor activity appropriate. Speech within normal limits. Affect congruent, mood anxious and euthymic. Thoughts linear, logical, no signs of hallucinations or delusions. Client Response/Progress/Benefit: []Pt was attentive and contributed to small group discussion. Pt reflected on the impact her environment has on overall perspective, noting increased negativity when not feeling heard or understood. Pt worked with group to identify strategies to challenge one?s perspective which group identified: thought challenge, reaching out to supports, grounding skills, and accomplishment log. Connected with discussion on the importance of recognizing personal strengths in challenging perspective. Pt acknowledged a personal strength of bravery and pt wants to work on challenging perspective by practicing daily journaling. Benefited from identifying personal strengths and strategies for challenging perspective. Pt to continue IOP tx to promote mood stability, encourage continued boundary setting, and increase use of healthy coping skills. Narrative Note: []
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
--- NOTE | 2023-03-08 10:10 | BH.SGPN.GN ---
Behaviors/Verbalizations/Mental Status: []Pt alert and oriented, casually dressed and groomed. Eye contact good. Motor activity appropriate. Speech within normal limits. Affect congruent, mood euthymic. Thoughts linear, logical, no signs of hallucinations or delusions. Client Response/Progress/Benefit: []Pt was an active participant AEB taking notes and contributing in group discussions and activities. Pt engaged during interactive discussion in which the group defined self-care and discussed its benefits. Group identified improved motivation, decreased depression, reduced stress, and better relationships.?Pt worked with peers in a small group to identify myths related to self-care and worked within group to bust these self-care myths. Pt identified personal barrier of experiencing guilt for spending money or taking time for herself rather than others which keeps pt from practicing self-care. Benefited from increased awareness of self-care, its benefits, and the consequences of not utilizing self-care strategies. Will continue IOP tx to prevent decompensation, promote consistent application of healthy coping skills, and improve mood stability. Narrative Note: []
--- NOTE | 2023-03-08 11:15 | BH.SGPN.GN ---
Behaviors/Verbalizations/Mental Status: []Pt alert and oriented, casually dressed and groomed. Eye contact good. Motor activity appropriate. Speech within normal limits. Affect congruent, mood euthymic. Thoughts linear, logical, no signs of hallucinations or delusions. Client Response/Progress/Benefit: []Pt engaged participant AEB completing self-assessment worksheet and providing input throughout discussion. Participated in group discussion on the various areas of self-care. Pt completed worksheet identifying current self-care practices and what self-care activities pt wants to start using. Pt selected social self-care to begin practicing more consistently. Pt plans to do this by getting out of her house and engaging in conversations with others. Appeared to benefit from completing the self-care evaluation and gaining insights into current self-care practices, as well as identifying areas in which pt ?would like to improve upon.?Pt to continue IOP to increase healthy coping, challenge distortions, and prevent decompensation.
--- NOTE | 2023-03-09 10:15 | BH.SGPN.GN ---
Behaviors/Verbalizations/Mental Status: [] Client alert and oriented, casually dressed and groomed. Eye contact fair. Motor activity appropriate. Speech within normal limits. Affect congruent, mood euthymic. Thoughts linear, logical, no signs of hallucinations or delusions. Client Response/Progress/Benefit: [] Client responded session by being attentive and taking notes. Client provided input during discussions. Group identified the benefits of change which included: personal growth, positive perspective, increased confidence and better mental health. Worked with the group to identify barriers to change, which included: uncomfortable emotions such as anxiety, lack of awareness, low energy, support system, and negative thinking. Client stated when faced with a change she will tell herself she can't do it, which is barrier to change for herself. Client attentive in activity where they identified and discussed the emotions related to change. Appear to benefit from increased awareness and understanding of emotions, benefits, and barriers related to change. Will continue IOP tx to challenge negative thoughts, increase healthy coping, and prevent decompensation.
--- NOTE | 2023-03-09 11:15 | BH.SGPN.GN ---
Behaviors/Verbalizations/Mental Status: []Pt alert and oriented, neatly dressed and groomed. Eye contact good. Motor activity appropriate. Speech within normal limits. Affect congruent, mood depressed and anxious. Thoughts linear, logical, no signs of hallucinations or delusions Client Response/Progress/Benefit: []Pt responded well to session, attentive AEB participating in activity and actively engaging in group discussion. Group processed activity to relate the strategies used to overcome barriers in the activity to managing change in own life. Discussed and set SMART goal in group as it relates to change group members are wanting to make. Pt identified change they want as continuing to get out of her room a few hours daily. Identified being in the preparation/action stage but negative self-talk and isolation can keep pt from following through consistently. Pt stated to get to the action stage consistently, she will need to use opposite action and remind herself ?how happy I feel when I get out.? Appeared to benefit from identifying a small goal to work towards. Pt will continue IOP tx to prevent decompensation, increase use of healthy coping skills, and improve self-esteem. Narrative Note: []
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
== END 2023-03-11 23:59 ==
LOC: BHIOP 09:35
PROVIDERS: PCP Family Medicine; Referring Provider Psychiatry & Neurology Psychiatry; Visit Provider Psychiatry & Neurology Psychiatry
DX: F33.3 Major depressive disorder, recurrent, severe with psychotic symptoms (principal); F43.10 Post-traumatic stress disorder, unspecified; F41.1 Generalized anxiety disorder; F15.99 Other stimulant use, unspecified with unspecified stimulant-induced disorder; F10.99 Alcohol use, unspecified with unspecified alcohol-induced disorder; G90.521 Complex regional pain syndrome I of right lower limb; E03.9 Hypothyroidism, unspecified
CPT/HCPCS: S9480; 90834; 90853

== ENCOUNTER → 2023-03-09 | Outpatient (CLI) | payer MEDICARE, MEDICAID, SELFPAY ==
--- NOTE | 2023-03-09 07:37 | MRI_ITS ---
STUDY: MRI RIGHT SHOULDER REASON FOR EXAM: Female, 47 years old. History of fall injury. Pain. TECHNIQUE: Standardized fat and water weighted pulse sequences were obtained in all 3 orthogonal planes. COMPARISON: Right shoulder x-rays dated February 21, 2023. FINDINGS: Full thickness full width retracted supraspinatus and infraspinatus tendon tears. Supraspinatus tendon is retracted 3 cm from its insertion site and infraspinatus tendon is retracted 2.7 cm from its insertion site (coronal series 7 images 4-12). Marked subscapularis tendinosis with thickening, articular surface fraying and increased signal intensity. No full thickness tear (axial series images 10-15). Normal teres minor tendon. Moderate to marked strains of the infraspinatus and teres minor muscles. Mild supraspinatus muscle strain (coronal series 7 images 2-9, sagittal series 5 images 6-16). Normal subscapularis muscle. Moderate loss of articular cartilage of the glenohumeral joint with a large glenohumeral joint effusion (axial series 2 images a-18). Cystic change in the humeral head (axial series 2 images 7-12). Normal biceps labral complex. Tendinosis of the proximal extra-articular long head of the biceps (axial series 2 images 7-12). Normal labrum. Normal capsulo- ligamentous complex. Normal rotator interval. Small AC joint effusion with marked AC joint hypertrophy resulting in narrowing of the subacromial space (coronal series 4 images 10-15, sagittal series 5 images 12-16). There is a Type II morphology (curved), with a neutral orientation. Subacromial-subdeltoid bursal fluid (coronal series 4 images 5-8). Normal visualized coracohumeral and coracoacromial ligaments. Normal quadrilateral space. Normal axillary space. Normal deltoid muscle. Normal trapezius muscle. MRI/Upper Ext Joint Only(Routine) IMPRESSION: Full-thickness full width supraspinatus and infraspinatus tendon tears as described. Marked subscapularis tendinosis without a full thickness tear. Strains of the supraspinatus, infraspinatus and teres minor muscles, likely posttraumatic, given the history. Moderate arthrosis of the glenohumeral joint. Cystic change in the humeral head. Proximal long head of biceps tendinosis. Small AC joint effusion with marked AC joint hypertrophy resulting in narrowing of the subacromial space. Large glenohumeral joint effusion with fluid in the subacromial-subdeltoid bursa Electronically Signed: Joshua Anton MD at 11:07 EDT ,
== END | disposition home or self-care (01) ==
LOC: MRI 07:38
PROVIDERS: PCP Family Medicine; Referring Provider Family Medicine; Visit Provider Family Medicine
DX: S49.90XA Unspecified injury of shoulder and upper arm, unspecified arm, initial encounter (principal)
CPT/HCPCS: 73221

== ENCOUNTER 2023-03-14 07:18 | Outpatient (RCR) | payer MEDICARE, MEDICAID, SELFPAY ==
[2023-03-12 01:46] VITALS: BP 139/84; PULSE 64
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
--- NOTE | 2023-03-16 10:05 | BH.SGPN.GN ---
Behaviors/Verbalizations/Mental Status: [] Client alert and oriented, casually dressed and groomed. Eye contact good. Motor activity appropriate. Speech within normal limits. Affect constricted, mood euthymic. Thoughts linear, logical, no signs of hallucinations or delusions. Client Response/Progress/Benefit: [] Client was an active participant in activity and taking notes during group discussion. Attentive during psychoeducation on coping skills, why people use unhealthy coping skills, and how to replace unhealthy coping skills. Group came up with list of negative coping skills that included substance use, avoidance, lashing out, and escaping from reality. Group discussed the effects of how negative coping skills can impact mental health in a negative way. Benefited from increased understanding of unhealthy coping skills and the need for developing healthy interna and external coping skills. client will continue IOP tx to prevent decompensation, maintain safety, and improve daily functioning. Narrative Note: []
--- NOTE | 2023-03-16 11:05 | BH.SGPN.GN ---
Behaviors/Verbalizations/Mental Status: [] Client alert and oriented, neatly dressed and groomed. Eye contact fair to good. Motor activity appropriate. Speech within normal limits. Affect constricted, mood euthymic. Thoughts linear, logical, no signs of hallucinations or delusions. Client Response/Progress/Benefit: [] Client responded well to session AEB taking notes and providing input and examples throughout. Group discussed the different categories of coping skills which included distraction, emotional release, grounding, self-love, and thought challenging. Client created a coping skill menu identifying various skills to try in each category. Client?s coping skill menu included: social media, crying, music, shopping for clothes, and positive self talk. Appeared to benefit from increasing repertoire of healthy coping skills. Client will continue IOP tx to improve daily functioning, reduce negative thinking, and increase application of healthy coping skills. Narrative Note: []
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
--- NOTE | 2023-03-17 10:15 | BH.SGPN.GN ---
Behaviors/Verbalizations/Mental Status: []Client alert and oriented, casual dress, hygiene tended to. Eye contact good. Motor activity appropriate. Speech within normal limits. Affect constricted, mood euthymic. Thoughts linear, logical, no signs of hallucinations or delusions. Client Response/Progress/Benefit: []Client responded well to session, attentive to discussions, taking notes. Did not provide input throughout group discussions. Client worked cooperatively with the group to identify factors that contributed to how we define ourselves which included: upbringing, societal expectations, labels, failures, trauma, shame/guilt, others opinions, and diagnosis. Client noted how we manage our mental health makes a difference in how we feel and act towards ourselves. Attentive during group discussion about social and perceived stigma. Client seemed to benefit from increased awareness of how mental health stigma can impact progress and self-worth. Client to continue IOP tx to improve ability to set boundaries, challenge distortions, build confidence, and prevent decompensation.
--- NOTE | 2023-03-17 11:16 | BH.SGPN.GN ---
[]Behaviors/Verbalizations/Mental Status: []Client alert and oriented, casually dressed and groomed. Eye contact fair to good. Motor activity appropriate. Speech within normal limits. Affect congruent, mood anxious and euthymic. Thoughts linear, logical, no signs of hallucinations or delusions. Client Response/Progress/Benefit:?[]Client engaged participant AEB client participating in the activity, providing some input during small group discussion, and listening attentively to others. Client appeared to connect with discussion in the benefits of addressing mental health stigma which included: improved relationships, validation, increased happiness, and improved confidence. Group brainstormed strategies to combat social and perceived stigma. ?Client shared one thing she can personally do to combat stigma is to talk about her mental health more openly and honestly with her outpatient providers. Appeared to benefit from increasing awareness of strategies to combat stigma. Will continue IOP tx to continue to establish healthy boundaries, improve emotion regulation and prevent decompensation. Narrative Note: []
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
--- NOTE | 2023-03-21 10:15 | BH.SGPN.GN ---
Behaviors/Verbalizations/Mental Status: [] Eye contact is good. Motor activity is appropriate. Appearance is casual. Speech is Appropriate. Mood is anxious. Affect is congruent. Thoughts are linear and logical. No evidence of psychosis. Client Response/Progress/Benefit: [] Pt was an active participant in group discussion. Attentive during psychoeducation. Participated during interactive discussion on types of support. Group identified several forms of support which included; friends, family, therapy, professionals, support groups, co-workers, social media, spirituality, medications, local agencies, etc. Pt Participated as group discussed the the importance of support which they identified leads to; accountability, can motivate, decreased loneliness, connection with others, improved relationships, increased self-confidence, can lessen one's stress and responsibilities, and is fun/ distracting. Patient identified the obstacles/barriers to seeking support and utilizing the support they currently have in place. Benefited from increased awareness of healthy supports and the importance of balanced support. Will continue in IOP to prevent decompensation, stabilize mood, and improve functioning. Narrative Note: []
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
--- NOTE | 2023-03-25 10:10 | BH.SGPN.GN ---
Behaviors/Verbalizations/Mental Status: []Pt alert and oriented, casually dressed and groomed. Eye contact fair. Motor activity appropriate. Speech within normal limits. Affect constricted, mood dysthymic. Thoughts linear, logical, no signs of hallucinations or delusions. Client Response/Progress/Benefit: []Pt receptive of session, actively engaged throughout AEB taking notes and listening to discussion. Appeared to connect with group topic of cognitive distortions and the impact of thought patterns on mental health, coping behaviors, and relationships. Pt reports connecting with distortions of labeling and personalization. Pt stated she will often take ownership of others wrong doing, which leads to no change from the other person. Pt appeared to benefit from gaining insight on distorted thinking patterns and how this impacts overall mental health. Will continue IOP tx to continue use of healthy coping, challenge negative thinking, and prevent decompensation.
--- NOTE | 2023-03-25 11:10 | BH.SGPN.GN ---
Behaviors/Verbalizations/Mental Status: [] Eye contact is good. Motor activity is appropriate. Appearance is casual. Speech is Appropriate. Mood is anxious. Affect is congruent. Thoughts are linear and logical. No evidence of psychosis. Client Response/Progress/Benefit: [] Pt was an active participant during group discussions and activity. Pt was placed in a smaller group and participated in quiz-show format in which small groups competed against each-other to answer questions based on identifying, challenging, and reframing cognitive distortions. Pt was engaged in her smaller group, participated in group interactions to brainstorm answers, and appeared to be comprehending cognitive distortions. Benefited from gaining further insight and awareness of cognitive distortions as well as practicing ways to reframe and challenge thoughts. Will continue in IOP to prevent decompensation, increase healthy coping, and improve functioning. Narrative Note: []
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
--- NOTE | 2023-03-29 10:10 | BH.SGPN.GN ---
Behaviors/Verbalizations/Mental Status: []Eye contact is good. Motor activity is appropriate. Appearance is casual. Speech is Appropriate. Mood is anxious. Affect is congruent. Thoughts are linear and logical. No evidence of psychosis. Client Response/Progress/Benefit: []Pt was an active participant in group discussions. Engaged and provided feedback along with peers on defining anxiety. Along with peers, pt worked to identify the benefits of anxiety. Participated during interactive discussion on how anxiety impacts one physically, cognitively, and behaviorally. Completed worksheet on how anxiety impacts pt physically, cognitively, and behaviorally. Pt shared physically pt experiences rapid breathing, rapid heartbeat, and racing thoughts. Benefited from increased insight into anxiety's benefits and how diagnosable anxiety impacts functioning. Will continue in IOP tx until the end of the week as pt will discharge to have surgery. Narrative Note: []
--- NOTE | 2023-03-29 11:10 | BH.SGPN.GN ---
Behaviors/Verbalizations/Mental Status: []Pt alert and oriented, casually dressed and groomed. Eye contact good. Motor activity appropriate. Speech within normal limits. Affect constricted, mood dysthymic. Thoughts linear, logical, no signs of hallucinations or delusions. Client Response/Progress/Benefit: []Pt was an active participant in group discussion AEB providing contributions throughout group and listening attentively to others. Attentive during psychoeducation on mindfulness and ways to utilize mindfulness techniques to improve anxiety management. The group practiced deep breathing and the 5-senses during session. Engaged and attentive during group brainstorm of healthy anxiety reduction skills including thought challenging and behavioral changes. Appeared to benefit from practicing in the moment coping skills and increasing repertoire of anxiety management skills. Pt selected wanting to work on practicing tracking her anxiety to see what skills help and what doesn't help. Pt will continue IOP tx to continue use of healthy coping, challenge distortions, and prevent decompensation.
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
--- NOTE | 2023-03-31 10:10 | BH.SGPN.GN ---
Behaviors/Verbalizations/Mental Status: [] Eye contact is good. Motor activity is appropriate. Appearance is casual. Speech is Appropriate. Mood is anxious. Affect is congruent. Thoughts are linear and logical. No evidence of psychosis. Client Response/Progress/Benefit: [] Pt was an active participant in group discussion. Attentive during psychoeducation and participated during interactive discussion in which members identified characteristics of individuals with a Fixed Mindset. Characteristics included; avoids challenges, fear of failure, defensive, avoids criticisms, give up easily, and fear of trying new things. Participated and engaged in experiential group activity in which therapist assigned a task to the group that seemed impossible causing fixed mindset responses. Through group interactions and therapist assistance pt was able to determine task was possible. Able to see connection between activity and Fixed vs Growth mindset. Benefited from increased awareness of fixed mindset and how this can impact mental health. Will continue in IOP to prevent decompensation and maintain gains. Narrative Note: []
--- NOTE | 2023-03-31 10:10 | BH.SGPN.GN ---
Behaviors/Verbalizations/Mental Status: [] Eye contact is good. Motor activity is appropriate. Appearance is casual. Speech is Appropriate. Mood is anxious. Affect is congruent. Thoughts are linear and logical. No evidence of psychosis. Client Response/Progress/Benefit: [] Pt was an active participant in group discussions and activities. Attentive during psychoeducation. Engaged during activity in which she identified which type of foods (i.e. carbs, sugar, salt, fast food, caffeine, etc) she seeks out when sad, tired, angry, rushed, anxious, etc. Pt was able to identify an unhealthy food cycle which included watching tv --> eating BBQ chips ---> feeling tired, craving more sugar, worried about health. Pt was able to identify the impact that certain foods have on her mental health which was beneficial. Will continue in IOP to prevent decompensation, stabilize mood, and increased healthy coping skills. Narrative Note: []
--- NOTE | 2023-03-31 11:10 | BH.SGPN.GN ---
Behaviors/Verbalizations/Mental Status: []Pt alert and oriented, casually dressed and groomed. Eye contact good. Motor activity appropriate. Speech within normal limits. Affect congruent, mood anxious. Thoughts linear, logical, no signs of hallucinations or delusions. Client Response/Progress/Benefit: []Pt was an active participant during activity and discussion AEB providing some input, connecting with peers, as well as taking notes throughout. Pt did well to engage as group worked on identifying characteristics and benefits of adopting a growth mindset. Worked with fellow participants in reframing the example fixed thoughts into growth mindset thoughts. Reframed personal fixed thought of ?I am not smart enough? with growth mindset thought of ?I have been able to accomplish many things.? Benefitted from discussing benefits of growth mindset and brainstorming strategies for prompting growth-mindset. Pt appeared to benefit from working in small groups to challenge own thoughts and help peers. Pt will discharge from [facility] due to having shoulder surgery next week.
--- NOTE | 2023-03-31 16:03 | BH.DS ---
Discharge Summary Demographics Date of Admission:: 03/02/23 Discharge Date: 03/31/23 Presenting Problems at Admission:: Pt is a 47-year-old female with a history of depression, methamphetamine use, alcohol use, and PTSD. Pt was referred to [facility] tx by her outpatient therapist due to worsening depression and suicidal ideations. Pt reports worsening depression, paranoia, and isolation that is impacting pt and her family. Pt currently endorses a depressed mood, suicidal ideations with a recent self-aborted attempt, crying spells, irritability, hypervigilance, and constant anxiety. 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 Reason for Discharge:: Pt was on her fourth week of IOP tx and making signficant progress. However, pt has significant tears in her shoulder and needs surgery. Pt will discharge from IOP tx to attend to her medical issues and pt will be readmitted in two weeks. This will be pending depending on medical approval. Treatment Progress During Treatment & Response: Pt has made significant strides since starting IOP four weeks ago as shown by her reduced symptoms, boundary setting, and overall increased ability to manage emotions and stressors. When Pt started IOP, she was severely depressed, paranoid, isolating, anxious, and having suicidal ideations. Pt can now report no paranoia, no suicidal ideations, and significantly less depressive symptoms. Pt contributed to group discussions, offered emotional support to peers, and consistently followed through with her goals. In individual sessions, Pt was receptive to feedback, consistent with homework, and willing to push herself. Pt will return to [facility] tx following her surgery. Issues Still to be Addressed:: Pt has made significant progress, but pt can continue to benefit from IOP and counseling after surgery to further reduce anxiety, increase self-worth, and increase stress management skills to help pt cope with the physical and emotional stressors of surgery. Pt can also continue to improve her boundary setting skills and self-confidence. Discharge Recommendations/Instructions:: Pt plans to be readmitted to [facility] following her surgery and a two week recovery. [facility] staff is working on getting pt transportation starting the week of 04/18/23. Pt is encouraged to follow up with her medical team and their recommendations. Discharge Handout
== END 2023-03-31 13:04 | disposition home or self-care (01) ==
LOC: BHIOP 07:18
PROVIDERS: PCP Family Medicine; Referring Provider Psychiatry & Neurology Psychiatry; Visit Provider Psychiatry & Neurology Psychiatry
DX: F33.3 Major depressive disorder, recurrent, severe with psychotic symptoms (principal); F43.10 Post-traumatic stress disorder, unspecified; F41.1 Generalized anxiety disorder; F10.91 Alcohol use, unspecified, in remission
CPT/HCPCS: S9480; 90834; 90837; 90853

== ENCOUNTER 2023-04-05 09:20 | Day surgery (SDC) | payer MEDICARE, MEDICAID, SELFPAY ==
[2023-03-30 13:23] LABS: Thyroid Stim Hormone (TSH) 2.85 uIU/mL (0.358-3.74)
--- NOTE | 2023-04-04 08:14 | NURSING ---
[facility] [place] [facility] transportation called about changing strip picker time for pt's surgery tomorrow- they are able to accomadate. called pt and left a message with the new strip picker time and to call this nurse to let them know that the pt got the message
[2023-04-05] VITALS (9 sets, daily range): BP systolic 114–151; BP diastolic 67–88; PULSE 58–82; RESP 16–18; TEMP 36.2–37.3; O2SAT 92–99; BMI 25.2
[2023-04-05] MEDS: Lactated Ringers 1,000 ML 15 ML IV (09:56)
[2023-04-05] MEDS: Lidocaine 1%/Epi 1:100 (30ml) 30 ML VIAL (10:25)
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
[2023-04-05] MEDS: Cefazolin 2 GM in 0.9% Normal Saline 100 ML IV (11:29)
[2023-04-05] MEDS: Epinephrine (1 mg/ml) 1 MG/ML VIAL (12:26)
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
--- NOTE | 2023-04-05 12:58 | DCINST_ITS ---
Discharge Instructions Diet Discharge Diet: No restrictions Dressing / Incision Call your doctor if you observe: Shortness of breath and Chest pain Additional Dressing/Incision Instructions:: Leave the dressing on and intact for 48 hours. . Then may remove and shower with warm water and antibacterial soap. But do not submerge in tub for 3 weeks. Ice shoulder 15 min on and 15 mins off next 72 hrs. May remove sling for elbow range of motion and pendulum exercises only then replace sling. Absolutely no active shoulder motion. Do not lift push pull at all with operative extremity . Encourage finger and wrist range of motion. Doxycycline antibiotic has been shown to aid in rotator cuff healing please take as directed . If any concerns call Dr. Romero's office. Follow Up Care Please Follow Up With: Rob Romero DO When: 2 weeks Test Results: Test results from this visit will be discussed in further detail at your follow- up appointment, if applicable. Discharge Plan Admission Primary Reason for Your Visit: Right rotator cuff repair Attending Provider: Rob Romero Primary Care Provider: Ronnell Moreno Discharge Orders/Prescriptions Prescriptions: New oxycodone 5 mg tablet 5 - 10 mg PO Q4H PRN (Reason: pain) 5 Days Qty: 50 0RF doxycycline hyclate 100 mg tablet 100 mg PO BID Qty: 60 0RF Continued levothyroxine 50 MCG tablet 50 mcg PO DAILY Patient Comments: THYROID omeprazole 40 MG capsule 40 mg PO DAILY Patient Comments: REFLUX biotin 1 MG capsule 10 mg PO DAILY cyanocobalamin (vitamin B-12) 1,000 MCG tablet 500 mcg PO DAILY tizanidine 4 MG capsule 4 mg PO BID Patient Comments: MUSCLE PAIN calcium citrate-vitamin D3 1 EACH tablet 6 tab PO DAILY multivitamin with minerals 1 EACH tablet 1 ea PO DAILY zonisamide 100 mg capsule 400 mg PO QHS trazodone 50 mg tablet 100 mg PO QHS PRN (Reason: Sleep) olanzapine [Zyprexa] 5 mg Tablet 5 mg PO DAILY 30 Days Qty: 30 1RF lamotrigine 150 mg tablet 150 mg PO Q12H Referrals / Follow Up: Ronnell Moreno MD [Primary Care Provider] - Disposition Disposition (needs filled in before D/C Order can be placed): Home, Self Care
== END 2023-04-05 16:04 | disposition home or self-care (01) ==
LOC: SDC 09:21 → AC 09:22
PROVIDERS: Anesthesiology; PCP Family Medicine; Referring Provider Orthopaedic Surgery; Visit Provider Orthopaedic Surgery
PROC: (CPT 29827; principal; 2023-04-05 11:10)
DX: M19.011 Primary osteoarthritis, right shoulder (principal); E78.2 Mixed hyperlipidemia; F41.1 Generalized anxiety disorder; I10 Essential (primary) hypertension; S46.011A Strain of muscle(s) and tendon(s) of the rotator cuff of right shoulder, initial encounter; L98.7 Excessive and redundant skin and subcutaneous tissue; Z87.2 Personal history of diseases of the skin and subcutaneous tissue; Z98.84 Bariatric surgery status; L30.4 Erythema intertrigo; M62.08 Separation of muscle (nontraumatic), other site; Z86.718 Personal history of other venous thrombosis and embolism; K21.9 Gastro-esophageal reflux disease without esophagitis; F17.200 Nicotine dependence, unspecified, uncomplicated
CPT/HCPCS: 29826; 29827; 01630; 64450; 36415; 84443; J7120; J2405

== ENCOUNTER 2023-04-06 02:33 | Emergency (ER) | payer MEDICARE, MEDICAID, SELFPAY ==
[2023-04-06 02:35] VITALS: BP 165/108; PULSE 72; RESP 16; TEMP 36.8; O2SAT 100; BMI 25.1
--- NOTE | 2023-04-06 02:47 | EDS_ITS ---
HPI History of Present Illness Chief Complaint: Upper Extremity Injury Detail of Chief Complaint: Postop right shoulder pain Informant: patient Narrative Narrative: Patient presents to the emergency department complaint of pain in the right shoulder. Patient states that she had a rotator cuff repair by Dr. Romero yesterday. Patient states that her block wore off and she has been taking the hydrocodone but its not alleviating her discomfort. Patient cannot take anti- inflammatories because she has had prior gastric bypass surgery. She presents via EMS from home. Denies any new injuries or falls. Patient presents in a right arm brace. [facility] Medical History (Updated 04/06/23 @ 03:[address] Vipul Ho, DO) Abdominal panniculus Abrasion Abscess of buttock, right Alcohol use disorder in remission Anemia Anxiety Arthritis Bone fracture Cardiology follow-up encounter Chronic pain Depression Difficulty chewing DVT (deep venous thrombosis) Essential hypertension Excessive body weight loss Excessive skin and subcutaneous tissue Frequent headaches Gallstones Gastric reflux Generalized anxiety disorder GERD (gastroesophageal reflux disease) Heart murmur Hemorrhoids History of DVT (deep vein thrombosis) Hives Hypoglycemia Hypothyroidism IBS (irritable bowel syndrome) Injury of head and neck Intertrigo Lumbar spondylolysis Major depressive disorder, recurrent, severe with psychotic features Methamphetamine use Migraine headache Mixed hyperlipidemia Non-healing ulcer of buttock with fat layer exposed Postural hypotension PTSD (post-traumatic stress disorder) Rectus diastasis of lower abdomen Recurrent infections RSD (reflex sympathetic dystrophy) Seasonal allergies Sleep apnea Smoker Tarsal tunnel syndrome Thyroid disease Ulceration, vulva UTI (urinary tract infection) Vasodepressor syncope Vitamin deficiency Wears glasses Home Medications levothyroxine 50 mcg tablet 50 mcg PO DAILY thyroid 06/19/13 [History Last Taken 04/05/23 09:00] omeprazole 40 mg capsule,delayed release 40 mg PO DAILY reflux 06/19/13 [History Last Taken 11/04/20 05:30] biotin 1 mg capsule 10 mg PO DAILY 12/22/13 [History Last Taken Unknown] calcium citrate 315 mg calcium-vitamin D3 6.25 mcg (250 unit) tablet 6 tab PO DAILY 06/23/17 [History Last Taken Unknown] cyanocobalamin (vitamin B-12) 1,000 mcg tablet 500 mcg PO DAILY 06/23/17 [History Last Taken Unknown] tizanidine 4 mg capsule 4 mg PO BID 06/23/17 [History Last Taken 10/22/18] multivitamin with minerals 1 ea PO DAILY 12/25/18 [History Last Taken Unknown] trazodone 50 mg tablet 100 mg PO QHS PRN Sleep 04/26/19 [History Last Taken Unknown] zonisamide 100 mg capsule 400 mg PO QHS migraines 04/26/19 [History Last Taken Unknown] lamotrigine 150 mg tablet 150 mg PO Q12H 03/29/23 [History Last Taken Unknown] olanzapine 5 mg tablet (Zyprexa) 5 mg PO DAILY 30 days #30 tabs 03/30/23 [Rx Last Taken Unknown] doxycycline hyclate 100 mg tablet 100 mg PO BID #60 tabs 04/05/23 [Rx Last Taken Unknown] oxycodone 5 mg tablet 5 - 10 mg (1 - 2 x 5 mg) PO Q4H PRN pain 5 days #50 tabs 04/05/23 [Rx Last Taken Unknown] Allergy/AdvReac Type Severity Reaction Status Date / Time Penicillins [PCN] Allergy Rash Verified 04/06/23 02:34 silicone [Silicone] Allergy Rash Verified 04/06/23 02:34 hydrochlorothiazide AdvReac Other Verified 04/06/23 02:34 Evrwjkj-[id number]-JlZ Reductase AdvReac Other Verified 04/06/23 02:34 Inhibitor [Ellaado-Pfo-Qnw Reductase Inhibitor] topiramate [From Topamax] AdvReac Chest Verified 04/06/23 02:34 tightness Family History Mother Diabetes Cancer Hypertension Heart disease Angina at rest Arthritis High cholesterol Kidney disease Father Heart disease Hypertension Anemia Anxiety Arthritis High cholesterol Psychiatric care Suicide attempt Brother Hypertension Asthma Alcoholism Anxiety Arthritis Psychiatric care Suicide attempt Surgical History History of excision of lesion History of foot surgery History of incision and drainage Hx of cholecystectomy Hx of gastric bypass Hx of hysterectomy I &D right buttock abscess L2-5 medial branch radiofrequency ablation (~10/13/17) Social History Smoking Status: Current every day smoker tobacco type: e-cigarettes second hand exposure: No alcohol intake: never substance use type: does not use caffeine: Yes what type of physical activity do you participate in: walking seatbelt use: always additional social history: DOES NOT USE ASPIRIN DOES NOT USE IBUPROFEN ROS ROS ED Review of Systems ROS Unobtainable: other Constitutional Constitutional ED: Reports lethargy; Denies chills, fever(s), sweats or weight loss Eyes Eyes: Denies blurry vision, change in vision or diplopia ENT ENT ED: Denies rhinorrhea or sore throat Cardiovascular Cardiovascular: Denies chest pain, orthopnea or racing heartbeat Respiratory/Chest Respiratory/Chest: Denies cough, dyspnea, dyspnea on exertion, orthopnea or sputum Gastrointestinal Gastrointestinal: Denies abdominal pain, diarrhea, nausea or vomiting Genitourinary Genitourinary ED: Denies dysuria, hematuria or urinary frequency Musculoskeletal Musculoskeletal: Reports other Details: Right shoulder pain ; Denies arthralgias, back pain, myalgias or neck pain Integumentary Denies abscess, Abrasions or rash Neurologic Neurologic: Denies headache(s) or weakness Psychiatric Psychiatric: Denies anxiety, depression or suicidal thoughts Endocrine Endocrinology: Denies polydipsia, polyphagia or polyuria Hematologic/Lymphatic Hematologic/Lymphatic: Denies easy bleeding, easy bruising or lymphadenopathy Allergic/Immunologic Allergic/Immunologic ED: Denies mouth swelling, tongue swelling or urticaria EXAM Physical Exam Const Vital Signs: 04/06/23 02:35 Temperature 98.2 F Temperature Source Temporal Pulse Rate 72 Respiratory Rate 16 Blood Pressure 165/108 H Blood Pressure Mean 127 Pulse Ox 100 Oxygen Delivery Method Room Air Positive well nourished and well developed General Appearance ED: well developed and NAD HEENT Reports TM's clear and moist mucous membranes normocephalic and atraumatic; Negative for trauma or tenderness Tympanic Membrane ED: Yes TM's clear Eyes PERRL and EOMs intact bilaterally General Eye ED: Negative for pale conjunctiva or scleral icterus Neck no lymphadenopathy, supple and no JVD General: Negative for tenderness Chest Wall inspection of chest normal and palpation of chest normal Chest: Negative for tenderness Resp normal respiratory effort and clear to auscultation bilaterally Effort and Inspection: Negative for respiratory distress or pain with movement Auscultation: Negative for rhonchi, wheezes or diminished lung sounds Cardio regular rate, regular rhythm, S1 normal heart sound, S2 normal heart sound and no murmurs Peripheral Pulses: pulses 2+ throughout GI normal to inspection, nondistended, normoactive bowel sounds, soft to palpation, non-tender, non-distended and no masses Back/Spine no CVA tenderness and no thoracic nor lumbar tenderness Extremity Extremity Narrative: Patient with a brace on the right arm with noted dressing on the right shoulder. Neurovascularly intact distally and she has normal range of motion in her hand and digits. No evidence of edema of the arm. General Extremety ED: Negative for edema General Extremity: Negative for edema Neuro oriented x3, CN's II-XII intact bilaterally, no sensory deficits noted and gait normal Sensorium / Orientation: awake, alert, oriented to person, oriented to place and oriented to time Motor Exam: strength 5/5 throughout and strength abnormal Psych mental status grossly normal Skin no rashes or lesions noted and no wounds MDM MDM MDM Narrative Medical decision making narrative: Patient presents with right shoulder pain postop shoulder surgery for rotator cuff repair. She will be medicated with Dilaudid 1 mg IM. After treatment she is feeling significantly improved but still having some discomfort and she understands that we will be able to completely resolve her pain. She has oxycodone at home for pain. She will call her surgeon tomorrow if she continues to have excessive pain. Discharge Plan Triage Chief Complaint: Upper Extremity Injury ED Provider: Vipul Ho Dx/Rx/DC Orders Clinical Impression: Post-op pain Instructions: ED Post Op Wound Check, Pain Prescriptions: No Action levothyroxine 50 MCG tablet 50 mcg PO DAILY Patient Comments: THYROID omeprazole 40 MG capsule 40 mg PO DAILY Patient Comments: REFLUX biotin 1 MG capsule 10 mg PO DAILY cyanocobalamin (vitamin B-12) 1,000 MCG tablet 500 mcg PO DAILY tizanidine 4 MG capsule 4 mg PO BID Patient Comments: MUSCLE PAIN calcium citrate-vitamin D3 1 EACH tablet 6 tab PO DAILY multivitamin with minerals 1 EACH tablet 1 ea PO DAILY zonisamide 100 mg capsule 400 mg PO QHS trazodone 50 mg tablet 100 mg PO QHS PRN (Reason: Sleep) olanzapine [Zyprexa] 5 mg Tablet 5 mg PO DAILY 30 Days Qty: 30 1RF lamotrigine 150 mg tablet 150 mg PO Q12H oxycodone 5 mg tablet 5 - 10 mg PO Q4H PRN (Reason: pain) 5 Days Qty: 50 0RF doxycycline hyclate 100 mg tablet 100 mg PO BID Qty: 60 0RF Primary Care Provider: Ronnell Moreno Referrals: Rob Romero DO [Med Staff - Active Staff] - 1-2 Days if not improving Ronnell Moreno MD [Primary Care Provider] - Disposition Disposition: Home, Self Care
[2023-04-06] MEDS: HYDROmorphone 1 MG/ML Syringe IM (03:10)
[2023-04-06 03:59] VITALS: PULSE 72; RESP 16; O2SAT 100
== END 2023-04-06 03:59 | disposition home or self-care (01) ==
PROVIDERS: Emergency Provider Emergency Medicine; PCP Family Medicine; Visit Provider Emergency Medicine
DX: G89.18 Other acute postprocedural pain (principal); I10 Essential (primary) hypertension; E78.2 Mixed hyperlipidemia; M25.511 Pain in right shoulder; E03.9 Hypothyroidism, unspecified; Z79.899 Other long term (current) drug therapy; K21.9 Gastro-esophageal reflux disease without esophagitis; G43.909 Migraine, unspecified, not intractable, without status migrainosus; Z90.49 Acquired absence of other specified parts of digestive tract; Z90.710 Acquired absence of both cervix and uterus
CPT/HCPCS: 99284

== ENCOUNTER 2023-04-18 06:56 | Emergency (ER) | payer MEDICARE, MEDICAID, SELFPAY ==
[2023-04-18 06:59] VITALS: BP 130/88; PULSE 62; RESP 16; TEMP 36.8; O2SAT 99; BMI 27.9
[2023-04-18 07:06] VITALS: BP 130/88; PULSE 62; RESP 16; TEMP 36.8; O2SAT 99
--- NOTE | 2023-04-18 07:30 | EKG12_ITS ---
Test Reason : Blood Pressure : / mmHG Vent. Rate : 072 BPM Atrial Rate : 072 BPM P-R Int : 130 ms QRS Dur : 080 ms QT Int : 412 ms P-R-T Axes : 054 001 054 degrees QTc Int : 451 ms Normal sinus rhythm Normal ECG Confirmed by RAKESH CASTILLO, LARA ([id number]), book editor LUCINDA FOSS ([id number]) on 04/19/2023 9:36:49 AM Referred By: NORMA Confirmed By:LARA CAMERON MD
--- NOTE | 2023-04-18 07:57 | ED.VIS.CHEST ---
HPI History of Present Illness Chief Complaint: Chest Pain Informant: patient Narrative Narrative: Left-sided chest discomfort awakening at 4 AM this morning. States for last 3 days has chills and sweats at night. Urine frequency. Sinus congestion due to allergies. No cough. Vapes tobacco. 2 weeks status post right shoulder rotator cuff repair followed by Dr. Romero. Denies dyspnea. Denies leg pain or cramping. Previous history hypertension hyperlipidemia resolved with gastric bypass surgery. No history of coronary disease. She reports headache. Status post aspirin by EMS states headache started to improve. CVD Risk Factors: Positive for Hypertension, Hypercholesterolemia and Smoking; Negative for Diabetes or Family History 1' </=55 PE Risk Factors: Negative for Prior DVT or PE [facility] Medical History Abdominal panniculus Abrasion Abscess of buttock, right Alcohol use disorder in remission Anemia Anxiety Arthritis Bone fracture Cardiology follow-up encounter Chronic pain Depression Difficulty chewing DVT (deep venous thrombosis) Essential hypertension Excessive body weight loss Excessive skin and subcutaneous tissue Frequent headaches Gallstones Gastric reflux Generalized anxiety disorder GERD (gastroesophageal reflux disease) Heart murmur Hemorrhoids History of DVT (deep vein thrombosis) Hives Hypoglycemia Hypothyroidism IBS (irritable bowel syndrome) Injury of head and neck Intertrigo Lumbar spondylolysis Major depressive disorder, recurrent, severe with psychotic features Methamphetamine use Migraine headache Mixed hyperlipidemia Non-healing ulcer of buttock with fat layer exposed Postural hypotension PTSD (post-traumatic stress disorder) Rectus diastasis of lower abdomen Recurrent infections RSD (reflex sympathetic dystrophy) Seasonal allergies Sleep apnea Smoker Tarsal tunnel syndrome Thyroid disease Ulceration, vulva UTI (urinary tract infection) Vasodepressor syncope Vitamin deficiency Wears glasses Home Medications levothyroxine 50 mcg tablet 50 mcg PO DAILY thyroid 06/19/13 [History Last Taken 04/05/23 09:00] omeprazole 40 mg capsule,delayed release 40 mg PO DAILY reflux 06/19/13 [History Last Taken 11/04/20 05:30] biotin 1 mg capsule 10 mg PO DAILY 12/22/13 [History Last Taken Unknown] calcium citrate 315 mg calcium-vitamin D3 6.25 mcg (250 unit) tablet 6 tab PO DAILY 06/23/17 [History Last Taken Unknown] cyanocobalamin (vitamin B-12) 1,000 mcg tablet 500 mcg PO DAILY 06/23/17 [History Last Taken Unknown] tizanidine 4 mg capsule 4 mg PO BID 06/23/17 [History Last Taken 10/22/18] multivitamin with minerals 1 ea PO DAILY 12/25/18 [History Last Taken Unknown] trazodone 50 mg tablet 100 mg PO QHS PRN Sleep 04/26/19 [History Last Taken Unknown] zonisamide 100 mg capsule 400 mg PO QHS migraines 04/26/19 [History Last Taken Unknown] lamotrigine 150 mg tablet 150 mg PO Q12H 03/29/23 [History Last Taken Unknown] olanzapine 5 mg tablet (Zyprexa) 5 mg PO DAILY 30 days #30 tabs 03/30/23 [Rx Last Taken Unknown] doxycycline hyclate 100 mg tablet 100 mg PO BID #60 tabs 04/05/23 [Rx Last Taken Unknown] oxycodone 5 mg tablet 5 - 10 mg (1 - 2 x 5 mg) PO Q4H PRN pain 5 days #50 tabs 04/05/23 [Rx Last Taken Unknown] Allergy/AdvReac Type Severity Reaction Status Date / Time Penicillins [PCN] Allergy Rash Verified 04/18/23 07:08 silicone [Silicone] Allergy Rash Verified 04/18/23 07:08 hydrochlorothiazide AdvReac Other Verified 04/18/23 07:08 Misnukn-MMH-TyE Reductase AdvReac Other Verified 04/18/23 07:08 Inhibitor [Ifpwuho-Isu-Wio Reductase Inhibitor] topiramate [From Topamax] AdvReac Chest Verified 04/18/23 07:08 tightness Family History Mother Diabetes Cancer Hypertension Heart disease Angina at rest Arthritis High cholesterol Kidney disease Father Heart disease Hypertension Anemia Anxiety Arthritis High cholesterol Psychiatric care Suicide attempt Brother Hypertension Asthma Alcoholism Anxiety Arthritis Psychiatric care Suicide attempt Surgical History History of excision of lesion History of foot surgery History of incision and drainage Hx of cholecystectomy Hx of gastric bypass Hx of hysterectomy I &D right buttock abscess L2-5 medial branch radiofrequency ablation (~10/13/17) Social History Smoking Status: Current every day smoker tobacco type: e-cigarettes second hand exposure: No alcohol intake: never substance use type: does not use caffeine: Yes what type of physical activity do you participate in: walking seatbelt use: always additional social history: DOES NOT USE ASPIRIN DOES NOT USE IBUPROFEN ROS ROS ED Constitutional Constitutional ED: Reports chills and sweats; Denies fever(s) Eyes Eyes: Denies change in vision ENT ENT ED: Denies dysphagia or sore throat Cardiovascular Cardiovascular: Reports chest pain; Denies leg edema, palpitations or racing heartbeat Respiratory/Chest Respiratory/Chest: Denies cough, dyspnea or dyspnea on exertion Gastrointestinal Gastrointestinal: Denies abdominal pain, diarrhea, nausea or vomiting Genitourinary Genitourinary ED: Reports urinary frequency; Denies dysuria or hematuria Musculoskeletal Musculoskeletal: Denies back pain, extremity pain or neck pain Integumentary Denies rash or wounds Neurologic Neurologic: Reports headache(s); Denies paresthesias or weakness EXAM Physical Exam Const Vital Signs: 04/18/23 06:59 04/18/23 07:06 04/18/23 07:24 Temperature 98.2 F 98.2 F Temperature Source Oral Oral Pulse Rate 62 62 Respiratory Rate 16 16 Blood Pressure 130/88 H 130/88 H Blood Pressure Mean 102 102 Pulse Ox 99 99 Oxygen Delivery Method Room Air Room Air Room Air 04/18/23 08:58 04/18/23 11:08 Temperature Temperature Source Pulse Rate 67 65 Respiratory Rate 23 H 11 L Blood Pressure 138/92 H 134/85 H Blood Pressure Mean 107 Pulse Ox 97 99 Oxygen Delivery Method Room Air Positive well nourished and well developed General Appearance ED: well developed and NAD HEENT Reports moist mucous membranes normocephalic and atraumatic Eyes PERRL, EOMs intact bilaterally and conjunctivae normal General Eye ED: Yes normal appearance of both eyes Neck no lymphadenopathy and supple Neck Narrative: No meningismus General: Negative for tenderness Chest Wall Chest: Negative for tenderness Resp normal respiratory effort and normal air movement Effort and Inspection: symmetric chest movement; Negative for respiratory distress Cardio regular rate, regular rhythm and no murmurs Peripheral Pulses: pulses 2+ throughout GI normal to inspection, nondistended, normoactive bowel sounds and non-tender Palpation: Negative for guarding or rebound tenderness present Back/Spine no CVA tenderness and no thoracic nor lumbar tenderness Extremity normal to inspection Extremity Narrative: Right upper extremity: External rotation immobilizer of the shoulder. General Extremety ED: Negative for edema or tenderness General Extremity: Negative for edema Neuro oriented x3, CN's II-XII intact bilaterally and no sensory deficits noted Sensorium / Orientation: awake and alert Skin no rashes or lesions noted and no wounds Heart Score History: Slightly/Non-Suspicious ECG: Normal Age: >45 - <65 years Risk Factors: 1 or 2 Risk Factors Troponin: </= Normal Limit Score: 2 MDM MDM MDM Narrative Medical decision making narrative: Interventions / MDM: Differential diagnosis: Viral syndrome Diagnosis considered but do not suspect: PE, however no dyspnea symptoms. ACS, however EKG with no ischemic changes and normal cardiac enzymes, no clinical guided. UTI however results negative. My EKG interpretation: Sinus rate of 72, no ST or T wave changes. Imaging independently reviewed and interpreted by myself: 1 view x-ray: No acute process also read by radiology External documents reviewed: N/A Test considered but not ordered:N/A ED course: Patient atypical chest pains no dyspnea with headache symptoms no meningismus. She is improving from aspirin by EMS. Cardiac work-up initiated, with chills and sweats and urine frequency urine also ordered. COVID and flu also ordered. Re-evaluation: stable. urine test negative COVID and flu negative. Chest x-ray negative. Cardiac work-up negative. Patient reevaluation symptoms improved. On rediscussion she reported she is on doxycycline takes her medications right before bedtime. Discussed with her she will drink a whole cup of water with that and try taking this medications 2 hours before bedtime to avoid pill esophagitis. Symptom-free on reevaluation. Outpatient follow-up with return precautions. All questions were answered. Disposition discussed with patient/family/significant other: Case discussed with consulting clinician: N/A This note was generated with [employer] dictation software. It may contain incorrect words, spelling, and punctuation that were not noted in checking the note before signing. Lab Data Labs: Laboratory Results - last 24 hr 04/18/23 04/18/23 04/18/23 06:47 08:18 10:17 WBC 8.0 RBC 4.40 Hgb 9.7 L Hct 34.1 L MCV 77.5 L MCH 22.0 L MCHC 28.4 L RDW Std Deviation 48.5 H RDW Coeff of [place] 17.4 H Plt Count 459 H MPV 9.1 Immature Gran % (Auto) 0.600 Neut % (Auto) 72.4 H Lymph % (Auto) 19.0 Wood % (Auto) 4.7 Eos % (Auto) 2.5 Baso % (Auto) 0.8 Absolute Neuts (auto) 5.8 Absolute Lymphs (auto) 1.51 Nucleated RBC % 0 Sodium 142 Potassium 3.8 Chloride 111 H Carbon Dioxide 25.0 Anion Gap 6 BUN 11 Creatinine 0.64 Estim Creat Clear Calc 90.86 Est GFR (MDRD) Af Amer 128 Est GFR (MDRD) Non-Af 106 BUN/Creatinine Ratio 17.1 Glucose 93 Calcium 8.7 Troponin I High Sens 5 4 Urine Color Yellow Urine Clarity Clear Urine pH 6.5 Ur Specific [place] 1.015 Urine Protein Negative Urine Glucose (UA) Normal Urine Ketones Negative Urine Occult Blood Negative Urine Nitrite Negative Urine Bilirubin Negative Urine Urobilinogen Normal Ur Leukocyte Esterase Negative Urine RBC 0 SEEN Urine WBC 0-5 SEEN Ur Squamous Epith Cells 5-10 SEEN Urine Bacteria 1+ Urine Mucus 0 SEEN Radiography Diagnostic Testing: Clinical Impression(s) from Imaging Studies Chest X-Ray 04/18/23 09:05 IMPRESSION: Normal x-ray examination of the chest. Electronically Signed: Trent Gresham MD at 9:16 EDT , Discharge Plan Triage Chief Complaint: Chest Pain ED Provider: Kevin Rangel Dx/Rx/DC Orders Clinical Impression: Acute viral syndrome, Atypical chest pain Instructions: ED Chest Pain, Noncardiac, ED Viral Syndrome (Adult) Prescriptions: No Action levothyroxine 50 MCG tablet 50 mcg PO DAILY Patient Comments: THYROID omeprazole 40 MG capsule 40 mg PO DAILY Patient Comments: REFLUX biotin 1 MG capsule 10 mg PO DAILY cyanocobalamin (vitamin B-12) 1,000 MCG tablet 500 mcg PO DAILY tizanidine 4 MG capsule 4 mg PO BID Patient Comments: MUSCLE PAIN calcium citrate-vitamin D3 1 EACH tablet 6 tab PO DAILY multivitamin with minerals 1 EACH tablet 1 ea PO DAILY zonisamide 100 mg capsule 400 mg PO QHS trazodone 50 mg tablet 100 mg PO QHS PRN (Reason: Sleep) olanzapine [Zyprexa] 5 mg Tablet 5 mg PO DAILY 30 Days Qty: 30 1RF lamotrigine 150 mg tablet 150 mg PO Q12H oxycodone 5 mg tablet 5 - 10 mg PO Q4H PRN (Reason: pain) 5 Days Qty: 50 0RF doxycycline hyclate 100 mg tablet 100 mg PO BID Qty: 60 0RF Primary Care Provider: Ronnell Moreno Referrals: Ronnell Moreno MD [Primary Care Provider] - 3-5 Days Activity Restrictions/Additional Instructions: Work-up negative. COVID and flu negative. Urine negative. Use Tylenol as needed for headaches. Drink plenty of fluids specially since you are on doxycycline. Whole glass of fluid with doxycycline. Try to take antibiotic 2 hours before bedtime. Follow-up with your doctor. Return if worsening symptoms. Disposition Disposition: Home, Self Care Discharge Date/Time: 04/18/23 11:16
[2023-04-18 08:10] LABS: Absolute Lymphocyte Count 1.51 X10^3/uL (0.83-4.51); Absolute Neutrophil Count 5.8 X10^3/uL (2.0-7.7); Basophil# 0.06 X10^3/uL; Basophil% 0.8 % (0-1); Eosinophils% 2.5 % (0-5); Hematocrit 34.1 % (37-47); Hemoglobin 9.7 g/dL (12.0-15.0); Lymphocyte # 1.51 X10^3/ul (0.83-4.51); Mean Corp Hgb Conc 28.4 g/dL (32-36); Mean Corpuscular Volume 77.5 fL (81-99); Mean Platelet Vol. 9.1 fl (6.2-12.0); Monocyte# 0.37 X10^3/uL; Monocyte% 4.7 % (0-10); NRBC Flagged by Analyzer 0 % (0-5); Neutrophil # 5.76 X10^3/uL (2.7-7.7); Neutrophil % 72.4 % (47-70); Platelet Count 459 K/mm3 (150-450); RBC Distribution Width CV 17.4 % (11.6-14.6); RBC Distribution Width SD 48.5 fl (35.1-43.9)
[2023-04-18 08:33] LABS: Anion Gap 6 (5-15); BUN 11 mg/dL (7-18); BUN/Creat Ratio 17.1 RATIO (10-20); Calcium,Total 8.7 mg/dL (8.5-10.1); Chloride 111 mmol/L (98-107); Creatinine, Serum 0.64 mg/dL (0.55-1.02); EST Glomerular Filtration Rate 106 mL/min (>60); Est Glom Filt Rate - Afr Amer 128 mL/min (>60); Estimated Creatinine Clearance 90.86 ml/min; Glucose 93 mg/dL (74-106); Potassium 3.8 mmol/L (3.5-5.1); Sodium Level 142 mmol/L (136-145); Troponin-I HS (w/2H Reflex) 5 pg/mL (3.0-54.0)
[2023-04-18 08:58] VITALS: BP 138/92; PULSE 67; RESP 23; O2SAT 97
--- NOTE | 2023-04-18 09:05 | RAD_ITS ---
STUDY: X-RAY CHEST REASON FOR EXAM: Female, 47 years old. Chest pain TECHNIQUE: Single AP portable view of the chest. COMPARISON: Comparison is made with prior study March 06, 2019. FINDINGS: EKG electrodes are seen. The lungs are clear and expanded. There is no demonstrated pleural abnormality. Normal size heart. Normal mediastinum and michael. Normal visualized pulmonary arteries. Normal visualized aortic arch and descending thoracic aorta. Normal visualized thoracic spine. Normal visualized ribs, clavicles, and shoulders. There is no demonstrated abnormality of the visualized soft tissue structures of the upper abdomen. RAD/Chest 1 View (Portable) IMPRESSION: Normal x-ray examination of the chest. Electronically Signed: Trent Gresham MD at 9:16 EDT ,
[2023-04-18 10:05] LABS: Reflex Troponin-HS? (from REC) Y
[2023-04-18 10:39] LABS: Troponin-I HS 4 pg/mL (3.0-54.0)
[2023-04-18 10:44] LABS: Mucous, Urine 0 SEEN /hpf (<or=2+); Red Blood Cells-Urine 0 SEEN /hpf (0-5)
[2023-04-18 10:47] LABS: Color, Urine Yellow (Yellow); Glucose, Dipstick Normal (Normal); Ketone-Dipstick Negative (Negative); Leukocyte Esterase-Dipstick Negative /ul (Negative); Nitrite-Dipstick Negative (Negative); Occult Blood-Urine Negative /ul (Negative); Protein-Dipstick Negative (Negative); Specific Gravity, Urine 1.015 (1.002-1.030); Urine Bilirubin Dipstick Negative (Negative); Urine Clarity Clear (Clear); Urine Urobilinogen Normal (Normal); Urine pH 6.5 (5.0 - 8.0)
[2023-04-18 10:57] LABS: White Blood Cells 0-5 SEEN /hpf (0-5)
[2023-04-18 10:58] LABS: Bacteria 1+ /hpf (None Seen); Squamous Epithelial Cells - UA 5-10 SEEN /hpf (5-10)
[2023-04-18 11:08] VITALS: BP 134/85; PULSE 65; RESP 11; O2SAT 99
== END 2023-04-18 11:16 | disposition home or self-care (01) ==
PROVIDERS: Emergency Provider Emergency Medicine; PCP Family Medicine; Visit Provider Emergency Medicine
DX: B34.9 Viral infection, unspecified (principal); R07.89 Other chest pain; I10 Essential (primary) hypertension; E78.2 Mixed hyperlipidemia; F17.290 Nicotine dependence, other tobacco product, uncomplicated; Z79.899 Other long term (current) drug therapy
CPT/HCPCS: 71045; 80048; 81001; 84484; 85025; 87428; 93005; 99285; A4216

== ENCOUNTER 2023-05-03 08:00 | Outpatient (RCR) | payer MEDICARE, MEDICAID, SELFPAY ==
--- NOTE | 2023-05-03 10:10 | BH.SGPN.GN ---
Behaviors/Verbalizations/Mental Status: []Eye contact is good. Motor activity is appropriate. Appearance is casual. Speech is Appropriate. Mood is anxious and depressed. Affect is congruent. Thoughts are linear and logical. No evidence of psychosis. Client Response/Progress/Benefit: []Pt was an active participant in group discussions. Engaged and provided feedback with group on defining anxiety. Along with peers, pt worked to identify the benefits of anxiety. Participated during interactive discussion on how anxiety impacts one physically, cognitively, and behaviorally. Completed worksheet on how anxiety impacts pt physically, cognitively, and behaviorally. Pt shared physically pt experiences increased heart rate, sweating, and headaches. Benefited from increased insight into anxiety's benefits and how diagnosable anxiety impacts functioning. Will continue in IOP tx to promote healthy boundaries and thought challenging, and further increase mood stability. Narrative Note: []
--- NOTE | 2023-05-03 14:52 | BH.COMM ---
Communication Note Communication with Client Communication Note: Met with pt to complete initial paperwork and complete the CSSR-S. Reports worsening depression and suicidal ideation since initial assessment, resulting in an self-aborted attempt on 05/01/23. Pt planned to take several muscle relaxers and then hang herself; however, contacted the local crisis center after consuming 3 pills. Reports I don't really want to , I just don't want to hurt like this anymore. Pt marital troubles are a significant trigger. Denies current active SI, plan, or intent. Given these changes, Pt was assessed as a moderate to high risk on the CSSR-S. No SI, plan, or intent today. See individual note for additional assessment and safety planning information. Future oriented and family is a huge protective factor. One suicide attempt over 10 years ago. Case discussed with Dr. Velasquez with plan to admit to IOP level of care with dx of Major Depressive Disorder, severe, recurrent F33.2
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
[2023-05-04 09:18] VITALS: BP 140/84; PULSE 68
--- NOTE | 2023-05-04 11:10 | BH.SGPN.GN ---
Behaviors/Verbalizations/Mental Status: []Pt alert and oriented, casually dressed and groomed. Eye contact good. Motor activity appropriate. Speech within normal limits. Affect congruent, mood depressed. Thoughts linear, logical, no signs of hallucinations or delusions. Client Response/Progress/Benefit: [] Pt responded well to session, engaged in the experiential activity and attentive throughout group processing. Pt reported fear of failure has kept Pt from leaving her room or developing new friendships. Pt completed fear of failure worksheet and was able to identify thoughts and behaviors that reinforce personal fear of failure including: negative thinking, isolation, and lack of communication. Pt participated in group discussion regarding strategies to overcome fear of failure. Identified wanting to work on starting to accept help and establish healthier boundaries. Appeared to benefit from increased knowledge of strategies to combat fear of failure and gaining self-awareness. Pt will continue IOP tx to improve mood stability, reduce isolation, and prevent decompensation. Narrative Note: []
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
--- NOTE | 2023-05-04 12:19 | BH.DR.ITP ---
Initial Treatment Plan Patient Information Visit Information: ADMISSION DATE: EXPECTED LOS: 4-6 weeks Problems/Symptoms Problem #1:: Depression Symptom:: Sadness, hopelessness, guilt, low energy, recent suicidal ideation, biological disruption of sleep Problem #2:: Anxiety Symptom:: Worry, rumination
== END 2023-05-12 23:59 ==
LOC: BHIOP 08:00
PROVIDERS: PCP Family Medicine; Referring Provider Psychiatry & Neurology Psychiatry; Visit Provider Psychiatry & Neurology Psychiatry
DX: F33.2 Major depressive disorder, recurrent severe without psychotic features (principal); F41.1 Generalized anxiety disorder; F43.10 Post-traumatic stress disorder, unspecified; F10.91 Alcohol use, unspecified, in remission; F11.91 Opioid use, unspecified, in remission
CPT/HCPCS: S9480; 90834; 90853

== ENCOUNTER 2023-05-13 08:17 | Outpatient (RCR) | payer MEDICARE, MEDICAID, SELFPAY ==
[2023-05-13 00:23] VITALS: BP 140/84; PULSE 68
--- NOTE | 2023-05-13 10:10 | BH.SGPN.GN ---
Behaviors/Verbalizations/Mental Status: []Pt alert and oriented, casually dressed and groomed. Eye contact fair. Motor activity appropriate. Speech within normal limits. Affect constricted, mood anxious. Thoughts linear, logical, no signs of hallucinations or delusions. Client Response/Progress/Benefit: [] Pt receptive to session AEB contributing to small group discussion, as well as listening attentively to others, and taking notes. Worked with group to brainstorm the positive and negative aspects of stress on physical and mental health. Group did well to identify the benefits of stress as well as the impact of distress on performance, relationships, and mental health. Pt identified their personal top stressors as: court, medical issues, and family. Pt seemed to benefit from increased awareness of current stressors and impact stress has on mental health. Recommended to continue IOP tx to improve confidence, challenge negative thinking, and prevent decompensation.
--- NOTE | 2023-05-13 11:15 | BH.SGPN.GN ---
Behaviors/Verbalizations/Mental Status: []Pt alert and oriented, neatly dressed and groomed. Eye contact good. Motor activity appropriate. Speech within normal limits. Affect congruent, mood anxious Thoughts linear, logical, no signs of hallucinations or delusions. Client Response/Progress/Benefit: []Pt was an active participant in group discussions and experiential activity. Attentive during psychoeducation on the 4 A's (Avoid, adapt, alter, accept) of coping with stress as well as strategies to identify stressors in which one has no control, little control, or a great deal of control over. Was able to identify the connection between the experimental activity and utilization of stress management skills. Pt shared she felt less confident because pt could not participate like she has in the past which led to some avoidance. Pt stated this mirrors what pt does with stressors in her own life. The group linked effective communication and opposite action as the biggest strategies for managing stressors. Benefited from increased awareness of stress management strategies. Will continue in IOP to prevent decompensation, improve distress tolerance skills, and improve daily functioning. ?? Narrative Note: []
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
--- NOTE | 2023-05-17 10:10 | BH.SGPN.GN ---
Behaviors/Verbalizations/Mental Status: [] Client alert and oriented, casually dressed and groomed. Eye contact fair. Motor activity appropriate. Speech within normal limits. Affect constricted, mood dysthymic. Thoughts linear, logical, no signs of hallucinations or delusions Client Response/Progress/Benefit: []Client was an engaged participant in group discussion and experiential activity. Attentive during psychoeducation on resilience. Participated in interactive discussion with peers on the definition of resilience and where it comes from. Group identified what can impact resilience. Identified barriers to resilience to include: extreme thinking, outside comfort zone, learned helplessness, and repeated traumas/hardships. Worked well with peers in small group in which they identified factors that contribute to resilience. Stated when she is struggling with being resilient she tends to give up, isolate, and have suicidal thoughts. Benefited from increased awareness of resilience and the factors that contribute to building resilience. Will continue in IOP to improve distress tolerance, increase consistent use of skills, and prevent decompensation.
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
--- NOTE | 2023-05-25 13:25 | BH.COMM ---
Communication Note Communication with Client Communication Note: Pt canceled her scheduled IOP sessions on Wednesday 05/23, Thursday 05/24, and Friday 05/25. Pt stated this was due to issues with her psych meds making it difficult for pt to function early in the morning. Pt shared she reached out to her outpatient psych provider and they are titrating pt down on her Vraylar from 3mg to 1.5mg to see if this helps. Pt has misses several IOP sessions this admission and pt was encouraged to make these days up, so pt does not fall back into isolation. Pt receptive to this and plans to attend IOP 05/26/23 and 05/27/23.
--- NOTE | 2023-05-27 09:45 | BH.COMM ---
Communication Note Communication with Client Communication Note: Spoke with pt on the phone as pt did not attend any IOP session this week. Pt had canceled earlier this week due to not responding well to a medication change and needing rest. Pt reminded that moving forward, pt will be discharged if she cannot adhere to the two day a week minimum attendance policy. Pt understands and accepts this.
--- NOTE | 2023-06-01 10:46 | BH.COMM ---
Communication Note Communication with Client Communication Note: Pt canceled on 05/30 and today on 06/01 which is six cancelations in a row. Pt was informed that she is being discharged from [facility] tx due to not adhering to the attendance policy. Pt understands this. Pt was tearful on the phone and shared that she wants to just run away into the [place] and not take anything so people can't find me. Pt denied any active suicidal ideations, but pt did state that she can't take this anymore and I want to escape. Pt has been isolating in her room and canceling all her appointments. Primary triggers include ongoing marital issues, arguments with her daughter, and pain from recent surgery, Pt's daughter is home with pt right now and therapist will call pt later today to check-in. Pt receptive to coming in for an individual session tomorrow morning to coordinate aftercare and discuss alternative options for treatment. Pt understands that if therapist does not hear from pt later today, therapist will call for a wellness check. Pt was not actively suicidal on the phone and by the end of the conversation pt was not crying. Discussed situation with tx team.
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
--- NOTE | 2023-06-01 15:56 | BH.COMM ---
Communication Note Communication with Client Communication Note: Spoke with pt on the phone. Pt was not tearful and she was more positive. Pt does not feel in crisis any more and shared she is out shopping and it's nice. Pt denies any active SI, plan, or intent. Pt still willing to come in for aftercare planning with therapist tomorrow, 06/02/23.
== END 2023-06-01 08:49 | disposition home or self-care (01) ==
LOC: BHIOP 08:17
PROVIDERS: PCP Family Medicine; Referring Provider Psychiatry & Neurology Psychiatry; Visit Provider Psychiatry & Neurology Psychiatry
DX: F33.2 Major depressive disorder, recurrent severe without psychotic features (principal); F41.1 Generalized anxiety disorder; F43.10 Post-traumatic stress disorder, unspecified; F10.91 Alcohol use, unspecified, in remission; F11.91 Opioid use, unspecified, in remission
CPT/HCPCS: S9480; 90834; 90853

== ENCOUNTER 2023-05-13 12:30 | Outpatient (RCR) | payer MEDICARE, MEDICAID, SELFPAY ==
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
--- NOTE | 2023-05-11 08:08 | HP.OTEVAL_ITS ---
Patient's Visit Information Visit Information Visit Information: ALFONSO BEAL is a 47 year old F, referred to Occupational Therapy by Dr. Rob Romero DO, with a diagnosis of lymphedema of left leg. Date of Evaluation: 05/10/23 Occupational Therapist: CHRIS Jorge/Porsche, CHT Subjective Subjective: This 47 year old female arrived with a dx of lymphedema. Pt was diagnosed approximately a month ago. Pt reports she had vascular insufficiency since 2000 had a blood clot removed, she has had swelling prior to and since then. Pt reports she has compression hose (GAURANG hose) and wears closed toed hose in the winter and open toe for summer. Pt reports that in the summer it swells more and decreases when laying down. Pt reports daughter is home and helps with donning/doffing compression socks. Pt reports she has pain at night -nerves go crazy leg movement neuro. Pt reports receiving LSB - lumbar synthetic blocks (since 2001 - for pain in leg). Pain LLE: Current Pain Intensity: 5 Pain Intensity Range: 9 Lymphedema (Circumferential Measure) Mid-foot: right 21cm left 21.5cm Ankle: right 20.5cm left 21cm Lower calf: right 18.5cm left 20.5cm Largest calf: right 31cm left 33.5cm Below knee: right 30.5cm left 33.5cm Above knee: right 36cm left 37.5cm Mid-thigh: right 42cm left 47.5cm Groin: right 48.5cm left 52.5cm Lower Exremity Comments: Pt circumference in left LE>right LE in all measured areas varying from .5cm to 5cm Lower Limb Functional Index Lower Extremity Functional Score: 31 Goals Goal: Patient will demonstrate a 20% reduction in edema by discharge: Yes Goal: Patient will demonstrate adequate knowledge of self-massage by the end of the second week.: Yes Goal: Patient will demonstrate adequate knowledge of skin care and precautions by the end of the first week.: Yes Goal: Patient will demonstrate adequate knowledge of therapeutic exercises by discharge.: Yes Goal: Patient will select an appropriate compression garment and demonstrate adequate knowledge of correct donning technique, care and wearing schedule by discharge.: Yes Goal: Patient will voice understanding of need to replace compression garment every four to six months by discharge.: Yes Goal:: Pt to demo overall increased indep in ADL/IADL tasks by decreased total lower extremity functional scale score by 10 points by discharge. Rehabilitation General Assessment: Pt seen for an OT eval with a diagnosis of lymphedema in left lower extremity. Pt left LE affect her ability to perform functional tasks throughout the day. Pt will benefit from 2-3 more visits to ensure proper garments are obtained and follow through of education is continued. Therapist ed in lymph stim exercises and self lymph massage to improve fluid movement in left lower extremity and thigh-high garment for LLE. Pt verbalizes understanding and agreeable to OT POC. Plan will be initiated once we have Ins approval. Therapy session was directly supervised and doc. approved by Marylu Lopez OTR/L,CHT. Rehabilitation Potential: Good Anticipated Interventions Anticipated Interventions: Education re Diagnosis, Education re Life-long lymp hedema Management, Education re Skin Care and Precautions, Education re Self Massage Techniques, Education re Correct Donning Tech,Care&Wearing Sched Comp Garments and Home Program Visit Plan General Plan: Ensure understanding of effective lymphedema management and correctly obtaining the recommended garments 20-30mmHg thigh high, and to replace every 4-6 months depending on use. TEXT: Thank you for the opportunity to evaluate your patient. For Medicare and Medicare HMO plans, please review the plan of care and approve it. It will need to be FAXED BACK to us at [phone] for Medicare purposes. Please let me know if there are questions or concerns regarding this plan of care. Physician Signature: Date:
--- NOTE | 2023-06-09 17:09 | HP.PT.NRP ---
Patient Information Patient Information: ALFONSO BEAL was seen in my office for initial evaluation on 05/02/23. The following Plan of Care was established for this patient: POC Established Initial Frequency: 2x /Week Initial Duration: 4 Weeks Anticipated Interventions Patient/Client Instruction: Educate patient on: Benefits of Fitness Program Therapeutic Exercise to Include: Strength training, Endurance training, Body mechanics, Postural training, Neuromotor development, Passive ROM, Active ROM and Scapular Strength/Stabilization TENS: Yes Cryotherapy (ice pack, ice massage): Yes Thermo therapy (hot pack): Yes Last Seen Last Seen: This patient was last seen in our office . Pertinent comments regarding their Physical therapy will appear below: Patient has not attended PT since IE- appropriate to be d/c At this point I will be discontinuing this patient from physical therapy. I would be happy to see this patient again in the future if found appropriate by the physician. Thank you! Tiffanie Becker, DPT Balance/Gait/Functional tests Balance/Special Test Scores Quick DASH Score: [phone]
== END 2023-05-13 19:00 | disposition home or self-care (01) ==
LOC: PT 12:30
PROVIDERS: PCP Family Medicine; Referring Provider Orthopaedic Surgery; Visit Provider Orthopaedic Surgery
DX: I89.0 Lymphedema, not elsewhere classified (principal)
CPT/HCPCS: 97110; 97140; 97162; 97166; 97530

== ENCOUNTER 2023-06-13 14:47 | Emergency (ER) | payer MEDICARE, MEDICAID, SELFPAY ==
[2023-06-13 14:50] VITALS: BP 161/96; PULSE 86; RESP 18; TEMP 36; O2SAT 99
--- NOTE | 2023-06-13 15:28 | EX.ED.DYSGE1 ---
HPI <VALERIA Hartman - Last Filed: 06/13/23 20:30> History of Present Illness Chief Complaint: Suicidal Narrative Narrative: Patient is a 47-year-old female with history of hypothyroidism, GERD, long history of anxiety depression. Patient states last time she was admitted to hospital and was sent to [facility] in [facility] 2 years ago. Patient states that for the last week, she has been having significant suicidal ideations. Per the patient, she had 3 separate episodes this week, she wanted to strangle herself, she wanted to go off into the forest and starve, and today, she put a knife to her throat. Crisis did consult the patient and did pink slip the patient. Patient was brought here by police. Patient was on Vraylar however secondary to a poor reaction, she has been off it for 2 weeks. Patient denies any other increased stress, she states she does not feel safe at home. [facility] <VALERIA Hartman - Last Filed: 06/13/23 20:30> [facility] Medical History (Updated 06/13/23 @ 17:45 by VALERIA Hartman) Abdominal panniculus Abrasion Abscess of buttock, right Alcohol use disorder in remission Anemia Anxiety Arthritis Bone fracture Cardiology follow-up encounter Chronic pain Depression Difficulty chewing DVT (deep venous thrombosis) Essential hypertension Excessive body weight loss Excessive skin and subcutaneous tissue Frequent headaches Gallstones Gastric reflux Generalized anxiety disorder GERD (gastroesophageal reflux disease) Heart murmur Hemorrhoids History of DVT (deep vein thrombosis) Hives Hypoglycemia Hypothyroidism IBS (irritable bowel syndrome) Injury of head and neck Intertrigo Lumbar spondylolysis Major depressive disorder, recurrent, severe with psychotic features Methamphetamine use Migraine headache Mixed hyperlipidemia Non-healing ulcer of buttock with fat layer exposed Postural hypotension PTSD (post-traumatic stress disorder) Rectus diastasis of lower abdomen Recurrent infections RSD (reflex sympathetic dystrophy) Seasonal allergies Sleep apnea Smoker Tarsal tunnel syndrome Thyroid disease Ulceration, vulva UTI (urinary tract infection) Vasodepressor syncope Vitamin deficiency Wears glasses Home Medications levothyroxine 50 mcg tablet 50 mcg PO DAILY thyroid 06/19/13 [History Last Taken 04/05/23 09:00] omeprazole 40 mg capsule,delayed release 40 mg PO DAILY reflux 06/19/13 [History Last Taken 11/04/20 05:30] biotin 1 mg capsule 10 mg PO DAILY 12/22/13 [History Last Taken Unknown] calcium citrate 315 mg calcium-vitamin D3 6.25 mcg (250 unit) tablet 6 tab PO DAILY 06/23/17 [History Last Taken Unknown] cyanocobalamin (vitamin B-12) 1,000 mcg tablet 500 mcg PO DAILY 06/23/17 [History Last Taken Unknown] tizanidine 4 mg capsule 4 mg PO BID 06/23/17 [History Last Taken 10/22/18] multivitamin with minerals 1 ea PO DAILY 12/25/18 [History Last Taken Unknown] zonisamide 100 mg capsule 400 mg PO QHS migraines 04/26/19 [History Last Taken Unknown] duloxetine 60 mg capsule,delayed release (Cymbalta) 60 mg PO DAILY 05/04/23 [History Last Taken Unknown] cariprazine 3 mg capsule (Vraylar) 3 mg PO DAILY 30 days #30 caps 05/18/23 [Rx Last Taken Unknown] trazodone 150 mg tablet 150 - 300 mg PO QHS PRN sleep 06/13/23 [History Last Taken Unknown] Allergy/AdvReac Type Severity Reaction Status Date / Time Penicillins [PCN] Allergy Rash Verified 06/13/23 14:48 silicone [Silicone] Allergy Rash Verified 06/13/23 14:48 cariprazine [From Vraylar] AdvReac Chest Verified 06/13/23 14:48 tightness hydrochlorothiazide AdvReac Other Verified 06/13/23 14:48 Tesgabs-[id number]-LaH Reductase AdvReac Other Verified 06/13/23 14:48 Inhibitor [Songdow-Nja-Sgj Reductase Inhibitor] topiramate [From Topamax] AdvReac Chest Verified 06/13/23 14:48 tightness Family History Mother Diabetes Cancer Hypertension Heart disease Angina at rest Arthritis High cholesterol Kidney disease Father Heart disease Hypertension Anemia Anxiety Arthritis High cholesterol Psychiatric care Suicide attempt Brother Hypertension Asthma Alcoholism Anxiety Arthritis Psychiatric care Suicide attempt Surgical History History of excision of lesion History of foot surgery History of incision and drainage Hx of cholecystectomy Hx of gastric bypass Hx of hysterectomy I &D right buttock abscess L2-5 medial branch radiofrequency ablation (~10/13/17) Social History Smoking Status: Current every day smoker tobacco type: e-cigarettes second hand exposure: No alcohol intake: never substance use type: does not use caffeine: Yes what type of physical activity do you participate in: walking seatbelt use: always additional social history: DOES NOT USE ASPIRIN DOES NOT USE IBUPROFEN ROS <VALERIA Hartman - Last Filed: 06/13/23 20:30> ROS ED ROS Narrative Constitutional: Negative for fever, chills, weight loss, weakness Eyes: Negative for vision loss, vision change, double vision ENT: Negative for any sore throat, ear pain, congestion Cardiovascular: Negative for any chest pain, tightness, palpitations Respiratory: Negative for any cough, sputum production, hemoptysis, dyspnea, dyspnea on exertion, orthopnea Gastrointestinal: Negative for any abdominal pain, nausea, vomiting, diarrhea, constipation, blood in stool, blood in vomit : Negative for any urinary frequency, dysuria, retention, blood in urine Muscle skeletal: Negative for any muscle joint pain, stiffness, myalgias, arthralgias, neck pain, back pain Neurological: Negative for any headache, syncope, numbness or tingling, dizziness Skin: Negative for any rashes, lumps, itching, abrasions, lacerations Psychiatric: Negative for any homicidal ideation. Positive for suicidal ideation, anxiety, depression Hematologic: Negative for any easy bruising, excessive bruising, easy bleeding Allergies: Negative for any eczema, hives, rash EXAM <VALERIA Hartman - Last Filed: 06/13/23 20:30> Physical Exam Narrative Exam Narrative: Vital signs reviewed. Patient is pleasant, patient does state that she is suicidal, she does not want to live. Patient will be in the room #4 with a sitter. Per the patient, 2 years ago when she was in this room, she did try to strangle herself or the cords. There are no cords in this room. Patient is acting appropriate this time. Patient does not appear to be intoxicated. HEET: Head normocephalic atraumatic, TMs clear bilaterally. Posterior pharynx is clear, moist mucous membranes. Nares clear bilaterally. Neck: Supple with no lymphadenopathy or tenderness. No signs of meningismus, negative jolt sign. Cardiac: Regular rate and rhythm no murmurs gallops or rubs, equal peripheral pulses bilaterally. Respiratory: Lungs clear to auscultation bilaterally. No chest tenderness. Abdomen: Soft, nontender, nondistended. No abdominal bruit or pulsatile masses. No hepatosplenomegaly Extremities: No peripheral edema, no signs of gross trauma or deformity. Active full range of motion of all extremities. Neuro: Cranial nerves II through XII intact, no focal neurological deficits. Skin: Clean dry and intact with no rash, purpura, petechiae, vesicles or pustules. Backs/flank: No CVA tenderness, no midline spinal tenderness, no deformity. Psych: Normal mood and affect. No SI, HI or acute psychosis. Const Vital Signs: 06/13/23 14:50 06/13/23 15:47 06/13/23 16:00 Temperature 96.8 F L Temperature Source Temporal Pulse Rate 86 Respiratory Rate 18 16 14 Blood Pressure 161/96 H Blood Pressure Mean 117 Pulse Ox 99 Oxygen Delivery Method Room Air 06/13/23 17:00 06/13/23 18:00 06/13/23 20:30 Temperature Temperature Source Pulse Rate 68 84 Respiratory Rate 16 16 18 Blood Pressure 138/78 H 132/68 H Blood Pressure Mean 98 89 Pulse Ox 98 95 Oxygen Delivery Method Room Air Positive well nourished and well developed General Appearance ED: well developed <Dr. Champ Diane DO - Last Filed: 06/14/23 00:20> Physical Exam Const Vital Signs: 06/13/23 14:50 06/13/23 15:47 06/13/23 16:00 Temperature 96.8 F L Temperature Source Temporal Pulse Rate 86 Respiratory Rate 18 16 14 Blood Pressure 161/96 H Blood Pressure Mean 117 Pulse Ox 99 Oxygen Delivery Method Room Air 06/13/23 17:00 06/13/23 18:00 06/13/23 20:30 Temperature Temperature Source Pulse Rate 68 84 Respiratory Rate 16 16 18 Blood Pressure 138/78 H 132/68 H Blood Pressure Mean 98 89 Pulse Ox 98 95 Oxygen Delivery Method Room Air MDM <VALERIA Hartman - Last Filed: 06/13/23 20:30> MDM Lab Data Labs: Laboratory Results - last 24 hr 06/13/23 06/13/23 15:35 16:20 WBC 8.0 RBC 4.29 Hgb 9.6 L Hct 32.0 L MCV 74.6 L MCH 22.4 L MCHC 30.0 L RDW Std Deviation 52.7 H RDW Coeff of [place] 20.1 H Plt Count 386 MPV 9.4 Immature Gran % (Auto) 0.300 Neut % (Auto) 69.3 Lymph % (Auto) 21.2 [place] % (Auto) 7.3 Eos % (Auto) 1.5 Baso % (Auto) 0.4 Absolute Neuts (auto) 5.5 Absolute Lymphs (auto) 1.69 Nucleated RBC % 0 Differential Comment SCANNED Anisocytosis 2+ Microcytosis 1+ Macrocytosis 1+ Sodium 140 Potassium 3.1 L Chloride 107 Carbon Dioxide 19.0 L Anion Gap 14 BUN 13 Creatinine 0.62 Est GFR (MDRD) Af Amer 132 Est GFR (MDRD) Non-Af 109 BUN/Creatinine Ratio 20.9 H Glucose 84 Calcium 8.5 Serum , Qual NEGATIVE Urine Opiates Screen NEGATIVE Urine Methadone Screen NEGATIVE Ur Barbiturates Screen NEGATIVE Ur Phencyclidine Scrn NEGATIVE Ur Amphetamines Screen POSITIVE H MDMA (Ecstasy) Screen POSITIVE H U Benzodiazepines Scrn NEGATIVE Urine Cocaine Screen NEGATIVE U Cannabinoids Screen POSITIVE H Ur Drug Screen Comment Ethyl Alcohol < 3.0 Treatment and Re-Evaluation :: Patient appears to be in no distress, vital signs are stable. Presenting to the emergency department for concern of suicidal ideation, she put a knife to her throat today and wants to . Patient is in room #4. Patient will have a sitter. Patient was evaluated already by crisis. I will order the screening labs. Patient at this time is safe, she is acting appropriate. Patient will need to be placed, she is pink slipped via crisis. Patient remained stable. Patient on reevaluation was unremarkable. Patient's laboratory values showed normal CBC, patient is slightly anemic however this is chronic. Patient's chemistries show potassium 3.1 this was replaced orally. Patient's urine drug screen was positive for marijuana ecstasy as well as amphetamines. Patient's alcohol was negative. She remains pink slipped, crisis is in to evaluate the patient. Patient remained stable. Patient is waiting for placement. Patient has accepting place in [facility]. Patient was given 1 mg of oral Ativan for anxiety. Patient remained stable, she is stable for admission to [facility] psychiatric facility. <Dr. Champ Diane, DO - Last Filed: 06/14/23 00:20> [employer] Narrative Medical decision making narrative: I have personally performed a face to face assessment of the patient and have reviewed the HEIDY Note. I performed a substantive portion of the visit including all aspects of the following. My medrano findings include: History: Patient presents with suicidal attempt and suicidal gesture. Patient states that her medications have been changed recently and she has not started on a new medication yet. Patient states that today she wanted to go into the [place] and start herself. Patient states yesterday she tried to strangle herself by wrapping a cord around her neck. Patient states she also tried to cut her neck yesterday. Patient denies any homicidal ideations. Patient denies any visual or auditory hallucinations. Patient states nothing makes her symptoms better nothing makes them worse. Exam: Vital signs are stable. Patient is afebrile. Patient is in no acute distress. Oral mucosa is pink and moist. Neck is supple. Trachea is midline. There is no JVD. Heart with regular rate and rhythm. Lungs are clear and equal bilaterally. Abdomen is soft. Bowel sounds are normal. There is no tenderness. Cranial nerves II through XII are intact. There are no focal motor or sensory deficits noted. Patient does have a flat affect. Patient admits to suicidal ideations. Patient denies any homicidal ideations. Patient denies any visual or auditory hallucinations. Medical Decision Making: Patient was evaluated by crisis prior to the patient coming in the emergency department. They felt the patient would benefit from inpatient psychiatric treatment. Patient was pink slipped to the emergency department. Medical screening labs will be obtained. CBC will be obtained to assess for leukocytosis and anemia. Basic metabolic profile will be obtained to assess for electrolyte abnormality and renal function. Serum hCG will be obtained to assess for . Serum alcohol level will be obtained to assess for alcohol intoxication. Urine drug screen will be obtained to assess for substance abuse. COVID-19 rapid antigen will be obtained to assess for COVID infection. CBC was reviewed. There is a mild anemia with a hemoglobin 9.6 and hematocrit 32.0. Platelets were normal. Basic metabolic profile was reviewed. Potassium was slightly low at 3.1. The remainder is within normal limits. Serum hCG was reviewed and was negative. Urine tox screen was reviewed and was positive for amphetamines, MDMA, and cannabinoids. Serum alcohol level was reviewed and was less than 3.0. COVID-19 rapid antigen was reviewed and was negative. Patient is medically cleared for psychiatric placement. Patient was accepted to [facility]. Patient will be transferred there. Patient understands and is agreeable with the plan. All questions were answered. Lab Data Attestation: I reviewed the patient's lab results. Labs: Laboratory Results - last 24 hr 06/13/23 06/13/23 15:35 16:20 WBC 8.0 RBC 4.29 Hgb 9.6 L Hct 32.0 L MCV 74.6 L MCH 22.4 L MCHC 30.0 L RDW Std Deviation 52.7 H RDW Coeff of [place] 20.1 H Plt Count 386 MPV 9.4 Immature Gran % (Auto) 0.300 Neut % (Auto) 69.3 Lymph % (Auto) 21.2 [place] % (Auto) 7.3 Eos % (Auto) 1.5 Baso % (Auto) 0.4 Absolute Neuts (auto) 5.5 Absolute Lymphs (auto) 1.69 Nucleated RBC % 0 Differential Comment SCANNED Anisocytosis 2+ Microcytosis 1+ Macrocytosis 1+ Sodium 140 Potassium 3.1 L Chloride 107 Carbon Dioxide 19.0 L Anion Gap 14 BUN 13 Creatinine 0.62 Est GFR (MDRD) Af Amer 132 Est GFR (MDRD) Non-Af 109 BUN/Creatinine Ratio 20.9 H Glucose 84 Calcium 8.5 Serum , Qual NEGATIVE Urine Opiates Screen NEGATIVE Urine Methadone Screen NEGATIVE Ur Barbiturates Screen NEGATIVE Ur Phencyclidine Scrn NEGATIVE Ur Amphetamines Screen POSITIVE H MDMA (Ecstasy) Screen POSITIVE H U Benzodiazepines Scrn NEGATIVE Urine Cocaine Screen NEGATIVE U Cannabinoids Screen POSITIVE H Ur Drug Screen Comment Ethyl Alcohol < 3.0 Discharge Plan Triage Chief Complaint: Suicidal ED Midlevel Provider: Ronnell Wolfe ED Provider: Champ Diane Dx/Rx/DC Orders Clinical Impression: Suicidal ideation, Depression Prescriptions: No Action levothyroxine 50 MCG tablet 50 mcg PO DAILY Patient Comments: THYROID omeprazole 40 MG capsule 40 mg PO DAILY Patient Comments: REFLUX biotin 1 MG capsule 10 mg PO DAILY cyanocobalamin (vitamin B-12) 1,000 MCG tablet 500 mcg PO DAILY tizanidine 4 MG capsule 4 mg PO BID Patient Comments: MUSCLE PAIN calcium citrate-vitamin D3 1 EACH tablet 6 tab PO DAILY multivitamin with minerals 1 EACH tablet 1 ea PO DAILY zonisamide 100 mg capsule 400 mg PO QHS duloxetine [Cymbalta] 60 mg capsule,delayed release(DR/EC) 60 mg PO DAILY Vraylar 3 mg capsule 3 mg PO DAILY 30 Days Qty: 30 1RF trazodone 150 mg tablet 150 - 300 mg PO QHS PRN Primary Care Provider: Ronnell Moreno Referrals: Ronnell Moreno MD [Primary Care Provider] - Disposition Disposition: Acute Care Hospital Discharge Location: [facility] Discharge Date/Time: 06/13/23 21:41
[2023-06-13 15:47] VITALS: RESP 16
[2023-06-13 15:58] LABS: Absolute Lymphocyte Count 1.69 X10^3/uL (0.83-4.51); Absolute Neutrophil Count 5.5 X10^3/uL (2.0-7.7); Basophil# 0.03 X10^3/uL; Basophil% 0.4 % (0-1); Eosinophil# 0.12 X10^3/uL; Eosinophils% 1.5 % (0-5); Hemoglobin 9.6 g/dL (12.0-15.0); Lymphocyte # 1.69 X10^3/ul (0.83-4.51); Lymphocyte % 21.2 % (19-41); Mean Corpuscular Hgb 22.4 pg (27.0-32.0); Mean Corpuscular Volume 74.6 fL (81-99); Mean Platelet Vol. 9.4 fl (6.2-12.0); Monocyte# 0.58 X10^3/uL; Monocyte% 7.3 % (0-10); NRBC Flagged by Analyzer 0 % (0-5); Neutrophil # 5.52 X10^3/uL (2.7-7.7); Neutrophil % 69.3 % (47-70); POSITIVE MORPHOLOGY YES; Platelet Count 386 K/mm3 (150-450); RBC Distribution Width CV 20.1 % (11.6-14.6); RBC Distribution Width SD 52.7 fl (35.1-43.9); Red Blood Count 4.29 M/mm3 (4.2-5.4)
[2023-06-13 15:59] LABS: Differential Indicated SCAN CRITERIA MET
[2023-06-13 16:00] VITALS: RESP 14
[2023-06-13 16:07] LABS: Alcohol, Blood (Medical)-Serum < 3.0 mg/dL
[2023-06-13 16:16] LABS: Anion Gap 14 (5-15); BUN 13 mg/dL (7-18); BUN/Creat Ratio 20.9 RATIO (10-20); Calcium,Total 8.5 mg/dL (8.5-10.1); Chloride 107 mmol/L (98-107); Creatinine, Serum 0.62 mg/dL (0.55-1.02); EST Glomerular Filtration Rate 109 mL/min (>60); Est Glom Filt Rate - Afr Amer 132 mL/min (>60); Glucose 84 mg/dL (74-106); Potassium 3.1 mmol/L (3.5-5.1); Sodium Level 140 mmol/L (136-145)
[2023-06-13 16:18] LABS: Internal QC Validated? YES +Cl - CLEAR BKGD
[2023-06-13 16:19] LABS: Pregnancy, Serum, hCG Quali. NEGATIVE Negative
[2023-06-13 16:31] LABS: Anisocytosis 2+; Differential Comment SCANNED; Macrocytosis 1+; Microcytosis 1+
[2023-06-13 16:53] LABS: Amphetamine Urine VISTA POSITIVE (<1000 ng/mL); Barbiturate Urine VISTA NEGATIVE (< 200 ng/mL); Benzodiazepine Urine VISTA NEGATIVE (< 200 ng/mL); Cocaine Urine VISTA NEGATIVE (< 300 ng/mL); Ecstacy Urine VISTA POSITIVE (< 500 ng/mL); Methadone Urine VISTA NEGATIVE (< 300 ng/mL); PCP Urine VISTA NEGATIVE (< 25 ng/mL); THC Urine VISTA POSITIVE (< 50 ng/mL); Vista UDS pH Range 6
[2023-06-13 17:00] VITALS: RESP 16
--- NOTE | 2023-06-13 17:43 | CM.ED ---
Addendum entered by Rose Rogers 06/13/23 19:38: Social Work [facility] requested potassium redrew to confirm levels. SW notified medical staff. [facility] and [facility]. Pt accepted by Dr. Lackey to the [place] [facility] at [facility]. Pt pending transport. IDANIA Stone Addendum entered by Rose Rogers 06/13/23 18:22: Social Work SW received call from [facility] requesting blood pressure recheck, height, weight, low potassium treated, and confirmation patient has no open wounds. Medical staff notified. SW asked patient about any open wounds or ulcers, patient denies (Hx of nonhealing wound). Potassium ordered by physician and updated BP completed. [place] notified. IDANIA Stone Original Note: Social Work Pt brought in by law enforcement due to crisis evaluation and pink slip. Crisis brought pink slip and gave report on patient, assessment to be faxed when completed. SW faxed crisis assessment and medical clearance to [facility] for referral. PATRICE introduced self and role to patient. SW notified patient of referral. SW provided emotional support and explained the process to patient. Pt voiced understanding of the process and declined any further needs at this time. Plan: Patient referred for psychiatric placement. IDANIA Stone
[2023-06-13 18:00] VITALS: BP 138/78; PULSE 68; RESP 16; O2SAT 98
[2023-06-13 18:08] VITALS: BMI 24.3
[2023-06-13] MEDS: Potassium Chloride Oral Tablet 20 MEQ 40 MEQ PO (18:40)
[2023-06-13] MEDS: LORazepam 1 MG Tablet PO (20:28)
[2023-06-13 20:30] VITALS: BP 132/68; PULSE 84; RESP 18; O2SAT 95
== END 2023-06-13 21:41 | disposition short-term general hospital (02) ==
PROVIDERS: Nurse Practitioner; Emergency Provider Emergency Medicine; PCP Family Medicine; Visit Provider Emergency Medicine
DX: F32.A Depression, unspecified (principal); I10 Essential (primary) hypertension; R45.851 Suicidal ideations; F41.9 Anxiety disorder, unspecified; E78.2 Mixed hyperlipidemia; E03.9 Hypothyroidism, unspecified; Z86.718 Personal history of other venous thrombosis and embolism; F17.210 Nicotine dependence, cigarettes, uncomplicated; Z79.899 Other long term (current) drug therapy
CPT/HCPCS: 36415; 80048; 80307; 82077; 84703; 85025; 87811; 99285

== ENCOUNTER → 2023-07-08 | Outpatient (CLI) | payer MEDICARE, MEDICAID, SELFPAY ==
[2023-07-08 15:30] LABS: Absolute Lymphocyte Count 1.61 X10^3/uL (0.83-4.51); Absolute Neutrophil Count 2.8 X10^3/uL (2.0-7.7); Basophil# 0.05 X10^3/uL; Eosinophil# 0.16 X10^3/uL; Eosinophils% 3.2 % (0-5); Hematocrit 36.5 % (37-47); Hemoglobin 10.3 g/dL (12.0-15.0); Lymphocyte # 1.61 X10^3/ul (0.83-4.51); Lymphocyte % 31.8 % (19-41); Mean Corp Hgb Conc 28.2 g/dL (32-36); Mean Corpuscular Hgb 23.4 pg (27.0-32.0); Monocyte% 7.9 % (0-10); NRBC Flagged by Analyzer 0 % (0-5); Neutrophil # 2.83 X10^3/uL (2.7-7.7); Neutrophil % 55.9 % (47-70); POSITIVE MORPHOLOGY YES; Platelet Count 335 K/mm3 (150-450); RBC Distribution Width CV 23.9 % (11.6-14.6); RBC Distribution Width SD 71.5 fl (35.1-43.9); White Blood Count 5.1 K/mm3 (4.4-11.0)
[2023-07-08 16:02] LABS: Differential Indicated SCAN CRITERIA MET
[2023-07-08 16:03] LABS: Differential Comment SCANNED
[2023-07-08 16:04] LABS: Anisocytosis 1+; Crenated RBC RARE; Ovalocyte RARE
[2023-07-12 12:09] LABS: Lead, Blood Adult 16+yrs 1.7 ug/dL (0.0-3.4)
== END | disposition home or self-care (01) ==
LOC: MTLAB 12:49
PROVIDERS: PCP Family Medicine; Referring Provider Family Medicine; Visit Provider Family Medicine
DX: D64.9 Anemia, unspecified (principal)
CPT/HCPCS: 36415; 83655; 85025

== ENCOUNTER 2023-07-26 08:00 | Outpatient (RCR) | payer MEDICARE, MEDICAID, SELFPAY ==
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
[2023-07-27 10:00] VITALS: BP 132/86; PULSE 83
--- NOTE | 2023-07-27 10:15 | BH.SGPN.GN ---
Behaviors/Verbalizations/Mental Status: [ Patient was alert and oriented, casually dressed and groomed. Eye contact good, motor activity normal, speech within normal limits. Affect congruent, mood content. Thoughts linear, logical, no signs of hallucinations or delusions. ] Client Response/Progress/Benefit: [Patient was open and participated in group discussions. Attentive during psychoeducation on growth mindset. Participated during the activity. Interactive group discussion on growth mindset in which group verbalized their current fixed mindsets and how they affect their mental health. Patient shared that one of her fixed thoughts was ?I?ll never be her?. Patient benefited from increased awareness of growth mindset and fixed thoughts and how fixed thoughts impact their mental health. Will continue in IOP to promote gains, further combat distorted thinking, and improve daily functioning.] Narrative Note: []
--- NOTE | 2023-07-27 11:10 | BH.SGPN.GN ---
Behaviors/Verbalizations/Mental Status: []Pt alert and oriented, casually dressed and groomed. Eye contact good. Motor activity appropriate. Speech within normal limits. Affect constricted, mood depressed. Thoughts linear, logical, no signs of hallucinations or delusions. Client Response/Progress/Benefit: [] Pt was an active participant during activity and discussion AEB providing some input, connecting with peers, as well as taking notes throughout. Pt did well to engage as group worked on identifying characteristics and benefits of adopting a growth mindset. Worked with fellow participants in reframing the example fixed thoughts into growth mindset thoughts. Pt worked on changing own fixed thought of ?I?m not a good mother? to growth thought of ?my kids are functioning adults who help me.? Benefitted from discussing benefits of growth mindset and brainstorming strategies for prompting growth-mindset. Pt appeared to benefit from working in small groups to challenge own thoughts and help peers. Pt will continue IOP tx to prevent decompensation, improve daily functioning, and reduce use of self-sabotaging behaviors. Narrative Note: []
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
--- NOTE | 2023-07-27 12:30 | BH.PSY.EVA_ITS ---
Initial Treatment Plan Patient Information Visit Information: ADMISSION DATE: EXPECTED LOS: 4-6 weeks Problems/Symptoms Problem #1:: Depression Symptom:: Sadness, hopelessness, anhedonia, worthlessness, biological disruption of appetite, passive thoughts of , recent suicidal ideation, recent self- harm. Problem #2:: Anxiety Symptom:: Worry, rumination, avoidance, reexperiencing
--- NOTE | 2023-07-29 09:00 | BH.SGPN.GN ---
Behaviors/Verbalizations/Mental Status: [Patient was alert and oriented, appropriately dressed and groomed. Eye contact was good, motor activity normal, speech within normal limits. Affect congruent, mood content. Thoughts linear, logical, no signs of hallucinations or delusions. Reviewed Patients symptom tracker and the patient reports severe in agitation/irritability/ anger and moderate to severe in anxiety/panic attacks and depression. The patient does not report symptoms of self-harm or suicidal thoughts/risk. ] Client Response/Progress/Benefit: [Patient was engaged and open to the discussion. Patient reported her mood to be ?mixed? but couldn?t narrow it down further. Patients first win was that she ate breakfast this morning. Patient stated she never eats breakfast or eats very often in general. The second win was that she got up early and walked her dogs. Patients stressor was her ?life plan?. Patient shared that she is leaving her and is trying to figure out whether she will be moving out with her 18-year-old daughter or off on her own. Patient was interactive and respectful with other group members about their mental wins and stressors. Patient benefited from the discussion by listening to feedback and giving input on her peer?s stressors and mental health wins. Patient will continue with IOP treatment to help develop healthy skills, promote mood stability, and improve distress tolerance. ] Narrative Note: []
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
--- NOTE | 2023-08-02 09:26 | BH.COMM_ITS ---
Communication Note Communication with Client Communication Note: Pt no called/no showed two days in a row. Pt understands the attendance policy at [facility] and that missing multiple days in a row could result in discharge. Therapist left a message for pt.
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
== END 2023-08-05 07:19 | disposition home or self-care (01) ==
LOC: BHIOP 08:00
PROVIDERS: PCP Family Medicine; Referring Provider Psychiatry & Neurology Psychiatry; Visit Provider Psychiatry & Neurology Psychiatry
DX: F33.2 Major depressive disorder, recurrent severe without psychotic features (principal); F43.10 Post-traumatic stress disorder, unspecified; F41.1 Generalized anxiety disorder; F10.91 Alcohol use, unspecified, in remission; F11.91 Opioid use, unspecified, in remission
CPT/HCPCS: S9480; 90834; 90837; 90853

== ENCOUNTER 2023-10-03 11:00 | Outpatient (RCR) | payer MEDICARE, MEDICAID, SELFPAY ==
--- NOTE | 2023-07-12 13:35 | HP.PTEVAL ---
Patient's Visit Information Visit Information Visit Information: ALFONSO BEAL is a 47 year old F referred to Physical Therapy by Dr. Rob Romero DO with a diagnosis of Orthopedic Aftercare. Date of Evaluation: 07/12/23 Physical Therapist: MARIALUISA Whiteside Visit Plan Frequency: 2x /Week Duration: 3 Months Plan: 2X/ week for 6-10 weeks for PROM, AAROM, AROM, Scapular and RC strength with HEP HEP: supine wand flexion, supine ER with towel under elbow, towel IR stretching Subjective Subjective: Pt had a R RC surgery 2 months (DOS April 05)ago so she needs to get her PT in. She has pain in the bicep area and she does not have ROM. She had very little therapy cause she has been in and out of the hospital. She has been doing pendulums, walk up the wall, and shoulder blade squeezes. She does not know if she has any restrictions at this point. said to push ER and feels that her pain is due to lack of movement and stiffness. Pt has pain when laying on it or laying down or trying to use the arm or tries to move the arm out into ER. If she tries to lift anything she feels weak and painful. She is R handed. 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 Pain R shoulder pain: Pain Intensity (Out of 10): 5 Pain Intensity Range: 10 Objective Objective: R handed: R shoulder AROM: R shoulder flex 130 and L 157 R shoulder ABD R 166 and L 167 R shoulder IR R L1 and L T6 R shoulder ER in sitting 0 degrees R shoulder MMT: R shoulder flex 5.1 and L 8.8 R shoulder ABD 4.6 and L 7 R shld ER 0 and L 9.3 Balance/Special Test Scores Quick DASH Score: 86.3625 Goals Goal 1:: I HEP Goal Time Frame: 8-12 Weeks Goal 2:: Increase R shoulder AROM (at the time of the eval: R shoulder flex 130 and L 157 R shoulder ABD R 166 and L 167 R shoulder IR R L1 and L T6 R shoulder ER in sitting 0 degrees). Goal Time Frame: 8-12 Weeks Goal 3:: Increase R shoulder strength (at the time of the eval MMT: R shoulder flex 5.1 and L 8.8 R shoulder ABD 4.6 and L 7 R shld ER 0 and L 9.3) Goal Time Frame: 8-12 Weeks Goal 4:: Be able to functionally use her arm to complete her ADL's Goal Time Frame: 8-12 Weeks Goal 5:: Abolish the constant R shoulder pain Goal Time Frame: 8-12 Weeks Rehabilitation Potential Rehabilitation Potential: Good Anticipated Interventions Patient/Client Instruction: Educate patient on: Condition and Plan of Care For the Purpose of:: To decrease pain, To increase ROM, To improve nutrient delivery to tissue, To improve muscle performance and motor function, To improve ability to perform ADL's, To increase tolerance to activity/condition/position, To improve performance and independence with ADL's, To decrease level of supervision to perform tasks, To improve health of tissue, To decrease soft tissue restriction and To increase flexibility/ROM Therapeutic Exercise to Include: Strength training, Postural training, Flexibilty training, Passive ROM, Active ROM and Scapular Strength/Stabilization For the Purpose of:: To decrease pain, To increase ROM, To improve nutrient delivery to tissue, To improve muscle performance and motor function, To improve ability to perform ADL's, To increase tolerance to activity/condition/position, To improve performance and independence with ADL's, To decrease level of supervision to perform tasks, To improve ability of physical actions for home/community/work/leisure, To improve health of tissue, To decrease soft tissue restriction and To increase flexibility/ROM Manual Therapy Techniques to Include: Mobilization, Passive ROM and Soft tissue mobilization For the Purpose of:: To decrease pain, To increase ROM, To improve nutrient delivery to tissue, To improve muscle performance and motor function, To improve ability to perform ADL's, To increase tolerance to activity/condition/position, To improve health of tissue, To decrease soft tissue restriction and To increase flexibility/ROM Cryotherapy (ice pack, ice massage): Yes Thermo therapy (hot pack): Yes For the Purpose of:: To decrease pain, To decrease swelling/inflammation, To increase ROM and To improve nutrient delivery to tissue Text: Thank you for the opportunity to evaluate your patient. For Medicare and Medicare HMO plans, please review the plan of care and approve it. It will need to be FAXED BACK to us at [phone] for Medicare purposes. For Medicare only, by signing this I certify the plan of care. Please let me know if there are questions or concerns regarding this plan of care. Physician Signature: Date:
--- NOTE | 2023-12-19 09:41 | HP.PT.NRP(2) ---
Patient Information Patient Information: ALFONSO BEAL was seen in my office for initial evaluation on . The following Plan of Care was established for this patient: Last Seen Last Seen: This patient was last seen in our office . Pertinent comments regarding their Physical therapy will appear below: At this point I will be discontinuing this patient from physical therapy. I would be happy to see this patient again in the future if found appropriate by the physician. Thank you! Hilaria Stone, MPT
== END 2023-10-03 19:00 | disposition home or self-care (01) ==
LOC: PT 11:00
PROVIDERS: PCP Family Medicine; Visit Provider Orthopaedic Surgery
DX: Z47.89 Encounter for other orthopedic aftercare (principal)
CPT/HCPCS: 97110; 97140; 97161; 97530

== ENCOUNTER 2023-11-12 19:51 | Emergency (ER) | payer MEDICARE, MEDICAID, SELFPAY ==
[2023-11-12 19:52] VITALS: BP 121/87; PULSE 66; RESP 15; TEMP 36.3; O2SAT 100
--- NOTE | 2023-11-12 21:12 | ED.RN ---
PT ORIGINALLY ARRIVED VIA EMS, EMS TOOK PT TO ROOM, PT ARGUED WITH EMS AND THEN LEFT. PT HAD NEVER BEEN TRIAGED. PT RETURNED WITH FAMILY WAS TRIAGED AND PLACED IN WAITING D/T NO ROOM AVAILABLE. PT WAS CALLED FOR AN AVAILABLE ROOM, PT WAS NO LONGER IN ED.
--- OUTSIDE RECORDS SUMMARY | 2023-11-12 21:21 | XMS RPT_ITS | CCD ---
Author Name Unknown Address [address] [place] [address] Organization [facility] Care Team Providers Care Turbine Inspector Name Role Phone Lyn Palomares Unavailable UnavailLyn Esqueda MD Unavailable Unavailable Ronnell Yuan Unavailable Unavailable Lyn Palomares Unavailable Unavailable Ronnell Yuan Unavailable Unavailable Unavailable RONNELL YUAN Primary Care Unavailable DENSEL, MARIA E Attending Unavailable SELF, SELF Referring Unavailable RONNELL YUAN Primary Care Unavailable DENSEL, MARIA E Attending Unavailable SELF, SELF Referring Unavailable DENSEL, MARIA E Attending Unavailable MARY PRA, MARINA Referring Unavailable RONNELL YUAN Primary Care Unavailable RONNELL YUAN Primary Care Unavailable DENSEL, MARIA E Attending Unavailable SELF, SELF Referring Unavailable Rob Maxine Unavailable Mauro aPtiño MD Primary Care Provider [phone] Maxine Rivas Unavailable Mauro Patiño MD Primary Care Provider [phone] Rob Maxine Unavailable Rob Maxine Unavailable Ronnell Yuan MD Primary Care Provider Mauro Patiño MD Primary Care Provider [phone] Mauro Patiño MD Primary Care Provider Sophia Thomas Unavailable Unavailable Ronnell Yuan MD Primary Care Provider Maxine Rivas Unavailable Unavailable Unavailable Ameya, Lung Attending Unavailable Ameya, Lung Referring Unavailable Dr. Ronnell Yuan Primary Care Unavail able Yuan, Dr. Ronnell Stubbs Primary Care Unavail able Ameya, Lung Attending Unavailable Ameya, Lung Referring Unavailable Yuan, Dr. Ronnell Stubbs Primary Care Unavail able UNKNOWN, UNKNOWN Referring Unavailable William, Ms. Sophia Epstein Attending DUDLEY Sweet Attending Unavailable HAROON, MAURO Latif Referring Unavailable PATIÑO, HERI Primary Care Unavailable ROBERTO, GERTRUDE Referring Unavailable YUAN, RONNELL Dwyer Primary Care Unavailable ROBERTOGERTRUDE AUGUST Attending Unavailable YUAN, RONNELL R Primary Care Unavailable MAXINE RIVAS Referring Unavailable MAXINE RIVAS Attending Unavailable YUAN, RONNELL Dwyer Primary Care Unavailable Yuan Ronnell CASTILLO Primary Care Provider SOY MOLINA Attending Unavailable YUAN, RONNELL STUBBS Primary Care Unavailable CARLOSMAO Attending Unavail able YUAN, RONNELL Dwyer Primary Care Unavailable CARLOSMAO LEE Attending Unavail able YUAN, RONNELL Dwyer Primary Care Unavailable CARLOSMAO Admitting Unavail able CARLOSMAO Attending Unavail able YUAN, RONNELL Dwyer Primary Care Unavailable RONALD NOLAN Attending Unavailable YUAN, RONNELL Dwyer Primary Care Unavailable CARLOS, MAO NICKI Admitting Unavail able CARLOSMAO Attending Unavail able CARLSOKERRIMAO NICKI Admitting Unavail able CARLOSMAO Attending Unavail able CARLOSMAO NICKI Referring Unavail able YUAN, RONNELL Dwyer Primary Care Unavailable RONALD NOLAN Attending Unavailable YUAN, RONNELL Dwyer Primary Care Unavailable CARLOS, MAO NICKI Admitting Unavail able CARLOSMAO NICKI Attending Unavail able YUAN, RONNELL R Primary Care Unavailable CARLOS, MAO NICKI Admitting Unavail able CARLOS, MAO NICKI Attending Unavail able YUAN, RONNELL Dwyer Primary Care Unavailable RONALD NOLAN Attending Unavailable YUAN, RONNELL Dwyer Primary Care Unavailable CARLOS, MAO NICKI Admitting Unavail able CARLOSMAO NICKI Attending Unavail able YUAN, RONNELL R Primary Care Unavailable CARLOS, MAO NICKI Admitting Unavail able CARLOS, MAO NICKI Attending Unavail able YUAN, RONNELL R Primary Care Unavailable Allergies Allergy Classification Reported Allergen(s) Allergy Type Date of Onset Reaction(s) Facility Anti-Epileptic Agents (1 source) topiramate Drug Allergy [place] [address] Work Phone: HMG-CoA Reductase Inhibitors (statins) (1 source) Hmg-Coa Reductase Inhibitors (Statins) [facility] [place] [address] Work Phone: hydroCHLOROthiazide (1 source) hydroCHLOROthiazide Drug Allergy [facility] logy [place] [address] Work Phone: oxybutynin (1 source) oxybutynin Drug Allergy [place] [address] Work Phone: Penicillins (antibiotic) (1 source) Penicillins; Translations: [Penicillins] Drug Allergy [place] [address] Work Phone: Unclassified (6 sources) Silicone LIQD; Translations: [Silicone LIQD] Allergy to drug (finding) [place] [address] Work Phone: zolpidem (1 source) zolpidem Drug Allergy [place] [address] Work Phone: (5 sources) Hmg-Coa Reductase Inhibitors (Statins); Translations: [Statins] Allergy to drug (finding) [place] [address] Work Phone: (20 sources) hydroCHLOROthiazide; Translations: [hydrochlorothiazide] Drug Allergy 2016 Other: See Comments, Unknown [facility] Work Phone: (20 sources) oxybutynin; Translations: [oxybutynin] Drug Allergy 2018 Mental Status Change, Unknown [facility] (8 sources) Penicillins; Translations: [Penicillins] Allergy to drug (finding) 2004 [facility] Repository (20 sources) topiramate; Translations: [topiramate] Drug Allergy 2012 Swelling, Unknown [facility] (6 sources) zolpidem; Translations: [Ambien] Drug Allergy 2022 Unknown [facility] [address] Work Phone: (20 sources) atorvastatin; Translations: [ATORVASTATIN CALCIUM] Drug Allergy 2012 Other: See Comments [facility] (20 sources) Doxycycline; Translations: [DOXYCYCLINE] Drug Allergy 2016 Other: See Comments [facility] Work Phone: (9 sources) HMG-CoA reductase inhibitor; Translations: [BRKSIUV-IFR-CGN REDUCTASE INHIBITORS] Drug Intolerance 2016 Intolerance, Other: See Comments [facility] Work Phone: (6 sources) Penicillins Propensity to adverse reactions 2004 Rash [facility] (20 sources) Pravastatin; Translations: [PRAVASTATIN] Drug Allergy 2012 Other: See Comments [facility] (20 sources) Sertraline; Translations: [SERTRALINE HCL] Drug Allergy 2004 Intolerance [facility] (20 sources) Silicones; Translations: [SILICONE] Drug Allergy 2005 [facility] Work Phone: (20 sources) Simvastatin; Translations: [SIMVASTATIN] Drug Allergy 2012 Other: See Comments [facility] (20 sources) venlafaxine; Translations: [VENLAFAXINE HCL] Drug Allergy 2004 Intolerance [facility] (20 sources) HCTZ [Other] Propensity to adverse reactions 2004 [facility] (20 sources) HMG-CoA reductase inhibitor Drug Intolerance 2016 Intolerance, Other: See Comments, Unknown [facility] Work Phone: (20 sources) Penicillins Propensity to adverse reactions 2004 Rash, Unknown [facility] (20 sources) Silicone Propensity to adverse reactions 2005 [facility] Work Phone: (1 source) Penicillin Drug Allergy 2022 Dept[facility]atology Work Phone: (2 sources) OTHER; Translations: [OTHER] Propensity to adverse reactions (disorder) 2004 [facility] Repository (1 source) zolpidem; Translations: [ZOLPIDEM] Drug Allergy 2022 [facility] 3 Repository Medications Current Medications Medication Drug Class(es) Dates Sig (Normalized) Sig (Original) cephalexin 500 mg oral capsule (2 sources) Cephalosporin Antibacterial Start: 09-17-2022 End: 09-22-2022 take 1 capsule by mouth four times daily cephALEXin (KEFLEX) 500 mg capsule Take 1 capsule by mouth four times daily for 5 days. 20 capsule 0 09/17/2022 09/22/2022 Active Completed/Discontinued Medications Medication Drug Class(es) Dates Sig (Normalized) Sig (Original) acetaminophen 325 mg / oxyCODONE hydrochloride 5 mg oral tablet (11 sources) Opioid Agonist Start: 11-26-2020 End: 06-09-2022 oxyCODONE-acetamino phen (PERCOCET) 5-325 mg tablet Percocet 5-325 mg tablet 0 11/26/2020 06/09/2022 Discontinued (Other) Problems Active Problems Problem Classification Problem Date Documented Date Episodic/Chronic Allergic reactions (1 source) Atopic neurodermatitis Onset: 02-10-2023 Chronic Allergic reactions (1 source) Allergic contact dermatitis due to metals Onset: 02-10-2023 Episodic Anxiety disorders (20 sources) Claustrophobia; Translations: [Other isolated or specific phobias] Onset: 03-30-2019 03-30-2019 Chronic Past or Other Problems Problem Classification Problem Date Documented Da te Episodic/Chronic Mycoses (20 sources) Candidiasis; Translations: [Candidiasis of skin and nail] Onset: 12-15-2007 04-09-2020 Episodic Other connective tissue disease (5 sources) Fibromyositis; Translations: [Fibromyalgia] Onset: 12-27-2017 04-06-2022 Episodic Other connective tissue disease (5 sources) Tibialis posterior tendinitis ; Translations: [Posterior tibial tendinitis, unspecified leg] Onset: 12-27-2017 04-06-2022 Episodic Other connective tissue disease (20 sources) Tendinitis of left posterior tibial tendon; Translations: [Posterior tibial tendinitis, left leg] Onset: 12-27-2017 Episodic Other connective tissue disease (20 sources) Myofascial pain syndrome; Translations: [Myalgia, other site] Onset: 12-27-2017 Episodic Other connective tissue disease (1 source) Myalgia, other site; Translations: [Myofascial pain syndrome] Onset: 06-09-2022 Episodic Other connective tissue disease (1 source) Posterior tibial tendinitis, left leg; Translations: [Posterior tibial tendinitis of left leg] Onset: 06-30-2022 Episodic Other diseases of veins and lymphatics (20 sources) Venous insufficiency of leg; Translations: [Venous insufficiency (chronic) (peripheral)] Onset: 10-03-2019 10-03-2019 Episodic Other gastrointestinal disorders (20 sources) Chronic constipation; Translations: [Other constipation] Onset: 06-28-2019 06-28-2019 Episodic Unclassified (1 source) Chronic migraine w/o aura, intractable, w/o stat migr; Translations: [Chronic migraine w/o aura, intractable, w/o stat migr] Onset: 12-13-2017 NEGATED: Highlighted row has not occurred!Residual codes; unclassified (3 sources) Disease Episodic Results Test Name Value Interpretation Reference Range Facil ity Vital Signs Date Time Vital Sign Value Performing Clinician Facility 11-01-2023 08:57-0500 Diastolic blood pressure 97 mm[Hg] Mao Hickman MD Work Phone: [facility] 11-01-2023 08:57-0500 Heart rate 66 /min Mao Hickman MD Work Phone: [facility] 11-01-2023 08:57-0500 Respiratory rate 18 /min Mao Hickman MD Work Phone: [facility] 11-01-2023 08:57-0500 Systolic blood pressure 151 mm[Hg] Mao Hickman MD Work Phone: [facility] 11-01-2023 08:11-0500 Body temperature 97.7 [degF] Mao Hickman MD Work Phone: [facility] 10-31-2023 08:53-0500 Body temperature 97.7 [degF] Ronald Nolan PA-C Work Phone: [facility] 10-31-2023 08:53-0500 Diastolic blood pressure 86 mm[Hg] Ronald Nolan PA-C Work Phone: [facility] 10-31-2023 08:53-0500 Heart rate 70 /min Ronald Nolan PA-C Work Phone: [facility] 10-31-2023 08:53-0500 Respiratory rate 18 /min Ronald Nolan PA-C Work Phone: [facility] 10-31-2023 08:53-0500 SaO2% (BldA) [Mass fraction] 98 % Ronald Nolan PA-C Work Phone: [facility] 10-31-2023 08:53-0500 Systolic blood pressure 135 mm[Hg] Ronald Nolan PA-C Work Phone: [facility] 09-15-2023 16:33-0500 Body height 160 cm Soy Molina DO Work Phone: [facility] 09-15-2023 16:33-0500 Body mass index (BMI) [Ratio] 24.09 kg/m2 Soy Molina DO Work Phone: [facility] 09-15-2023 16:33-0500 Body weight 61.69 kg Soy Molina DO Work Phone: [facility] 09-15-2023 16:33-0500 Diastolic blood pressure 72 mm[Hg] Soy Molina DO Work Phone: [facility] 09-15-2023 16:33-0500 Heart rate 78 /min Soy Molina DO Work Phone: [facility] 09-15-2023 16:33-0500 Respiratory rate 16 /min Soy Molina DO Work Phone: [facility] 09-15-2023 16:33-0500 Systolic blood pressure 148 mm[Hg] Soy Molina DO Work Phone: [facility] 07-25-2023 10:51-0500 Diastolic blood pressure 101 mm[Hg] Mao Hickman MD Work Phone: [facility] 07-25-2023 10:51-0500 Systolic blood pressure 152 mm[Hg] Mao Hickman MD Work Phone: [facility] 07-25-2023 10:45-0500 Body temperature 97.3 [degF] Mao Hickman MD Work Phone: [facility] 07-25-2023 10:45-0500 Heart rate 80 /min Mao Hickman MD Work Phone: [facility] 07-25-2023 10:45-0500 Respiratory rate 18 /min Mao Hickman MD Work Phone: [facility] 07-25-2023 10:45-0500 SaO2% (BldA) [Mass fraction] 99 % Mao Hickman MD Work Phone: [facility] 07-12-2023 07:06-0400 Body height 160 cm Gertrude Norfolk LEAFLET OR NEWSPAPER DELIVERER.CLINICAL SCIENCES PROFESSOR Work Phone: [facility] 07-12-2023 07:06-0400 Body weight 63.41 kg Gertrude Norfolk LEAFLET OR NEWSPAPER DELIVERER.CLINICAL SCIENCES PROFESSOR Work Phone: [facility] 07-12-2023 07:06-0400 Diastolic blood pressure 60 mm[Hg] Gertrude Norfolk LEAFLET OR NEWSPAPER DELIVERER.CLINICAL SCIENCES PROFESSOR Work Phone: [facility] 07-12-2023 07:06-0400 Systolic blood pressure 120 mm[Hg] Gertrude Roberto LEAFLET OR NEWSPAPER DELIVERER.CLINICAL SCIENCES PROFESSOR Work Phone: [facility] 05-25-2023 07:55-0400 Body mass index (BMI) [Ratio] 26.75 kg/m2 Ronnell Yuan Work Phone: [facility]xok[facility] [address] Work Phone: 05-25-2023 07:55-0400 Body surface area Derived from formula 1.72 m2 Ronnell Yuan Work Phone: DY-Aqoldvyef-Kmlzie [address] Work Phone: 05-25-2023 07:55-0400 Body temperature 98.1 [degF] Ronnell Yuan Work Phone: IX-Uvpzuwiyc-Pmxuwy [address] Work Phone: 05-25-2023 07:55-0400 Body weight 68.49 kg Ronnell Yuan Work Phone: UY-Sjzkmwoey-Exuibo 170 Work Phone: 05-25-2023 07:55-0400 Diastolic blood pressure 78 mm[Hg] Ronnell Yuan Work Phone: NP-[facility]Licy[facility] [address] Work Phone: 05-25-2023 07:55-0400 Heart rate 78 /min Ronnell Yuan Work Phone: QE-Lymypsedm-Ifmyth 170 Work Phone: 05-25-2023 07:55-0400 Systolic blood pressure 130 mm[Hg] Ronnell Yuan Work Phone: YZ-Yptpjnpsi-Kgpdlz 170 Work Phone: 11-16-2022 14:44-0500 Diastolic blood pressure 63 mm[Hg] Mao Hickman MD Work Phone: [facility] 11-16-2022 14:44-0500 Heart rate 67 /min Mao Hickman MD Work Phone: [facility] 11-16-2022 14:44-0500 Respiratory rate 18 /min Mao Hickman MD Work Phone: [facility] 11-16-2022 14:44-0500 Systolic blood pressure 100 mm[Hg] Mao Hickman MD Work Phone: [facility] 11-16-2022 14:13-0500 Body temperature 97.39 [degF] Mao Hickman MD Work Phone: [facility] 11-09-2022 09:35-0500 Diastolic blood pressure 70 mm[Hg] Mao Hickman MD Work Phone: [facility] 11-09-2022 09:35-0500 Heart rate 73 /min Mao Hickman MD Work Phone: [facility] 11-09-2022 09:35-0500 Respiratory rate 18 /min Mao Hickman MD Work Phone: [facility] 11-09-2022 09:35-0500 Systolic blood pressure 120 mm[Hg] Mao Hickman MD Work Phone: [facility] 11-09-2022 08:57-0500 Body temperature 97.9 [degF] Mao Hickman MD Work Phone: [facility] 11-04-2022 10:36-0500 Diastolic blood pressure 59 mm[Hg] Mao Hickman MD Work Phone: [facility] 11-04-2022 10:36-0500 Heart rate 79 /min Mao Hickman MD Work Phone: [facility] 11-04-2022 10:36-0500 Respiratory rate 18 /min Mao Hickman MD Work Phone: [facility] 11-04-2022 10:36-0500 Systolic blood pressure 98 mm[Hg] Mao Hickman MD Work Phone: [facility] 11-04-2022 09:50-0500 Body temperature 97.3 [degF] Mao Hickman MD Work Phone: [facility] 11-02-2022 08:52-0500 Diastolic blood pressure 59 mm[Hg] Mao Hickman MD Work Phone: [facility] 11-02-2022 08:52-0500 Heart rate 70 /min Mao Hickman MD Work Phone: [facility] 11-02-2022 08:52-0500 Respiratory rate 18 /min Mao Hickman MD Work Phone: [facility] 11-02-2022 08:52-0500 Systolic blood pressure 102 mm[Hg] Mao Hickman MD Work Phone: [facility] 11-02-2022 07:51-0500 Body temperature 97.9 [degF] Mao Hickman MD Work Phone: [facility] 09-17-2022 17:12-0500 Body temperature 97.5 [degF] Tasha Quin LEAFLET OR NEWSPAPER DELIVERER.CLINICAL SCIENCES PROFESSOR Work Phone: [facility] 09-17-2022 17:12-0500 Body weight 54.88 kg Tasha Quin LEAFLET OR NEWSPAPER DELIVERER.CLINICAL SCIENCES PROFESSOR Work Phone: [facility] 09-17-2022 17:12-0500 Diastolic blood pressure 82 mm[Hg] Tasha Quin LEAFLET OR NEWSPAPER DELIVERER.CLINICAL SCIENCES PROFESSOR Work Phone: [facility] 09-17-2022 17:12-0500 Heart rate 84 /min Tasha Quin LEAFLET OR NEWSPAPER DELIVERER.CLINICAL SCIENCES PROFESSOR Work Phone: [facility] 09-17-2022 17:12-0500 Respiratory rate 18 /min Tasha Quin LEAFLET OR NEWSPAPER DELIVERER.CLINICAL SCIENCES PROFESSOR Work Phone: [facility] 09-17-2022 17:12-0500 SaO2% (BldA) [Mass fraction] 99 % Tasha Quin LEAFLET OR NEWSPAPER DELIVERER.CLINICAL SCIENCES PROFESSOR Work Phone: [facility] 09-17-2022 17:12-0500 Systolic blood pressure 120 mm[Hg] Tasha Quin LEAFLET OR NEWSPAPER DELIVERER.CLINICAL SCIENCES PROFESSOR Work Phone: [facility] 08-27-2022 13:39-0500 Body weight 54.7 kg Dudley Trejo MD Work Phone: [facility] 08-27-2022 13:39-0500 Diastolic blood pressure 80 mm[Hg] Dudley Trejo MD Work Phone: [facility] 08-27-2022 13:39-0500 Systolic blood pressure 124 mm[Hg] Dudley Trejo MD Work Phone: [facility] 08-17-2022 15:48-0500 Body temperature 97.5 [degF] Tasha Quin LEAFLET OR NEWSPAPER DELIVERER.CLINICAL SCIENCES PROFESSOR Work Phone: [facility] 08-17-2022 15:48-0500 Body weight 55.34 kg Tasha Quin LEAFLET OR NEWSPAPER DELIVERER.CLINICAL SCIENCES PROFESSOR Work Phone: [facility] 08-17-2022 15:48-0500 Diastolic blood pressure 84 mm[Hg] Tasha Quin LEAFLET OR NEWSPAPER DELIVERER.CLINICAL SCIENCES PROFESSOR Work Phone: [facility] 08-17-2022 15:48-0500 Heart rate 88 /min Tasha Quin LEAFLET OR NEWSPAPER DELIVERER.CLINICAL SCIENCES PROFESSOR Work Phone: [facility] 08-17-2022 15:48-0500 Respiratory rate 16 /min Tasha Quin LEAFLET OR NEWSPAPER DELIVERER.CLINICAL SCIENCES PROFESSOR Work Phone: [facility] 08-17-2022 15:48-0500 SaO2% (BldA) [Mass fraction] 100 % Tasha Quin LEAFLET OR NEWSPAPER DELIVERER.CLINICAL SCIENCES PROFESSOR Work Phone: [facility] 08-17-2022 15:48-0500 Systolic blood pressure 132 mm[Hg] Tasha Quin LEAFLET OR NEWSPAPER DELIVERER.CLINICAL SCIENCES PROFESSOR Work Phone: [facility] 07-13-2022 14:38-0400 Diastolic blood pressure 48 mm[Hg] Mao Hickman MD Work Phone: [facility] 07-13-2022 14:38-0400 Heart rate 58 /min Mao Hickman MD Work Phone: [facility] 07-13-2022 14:38-0400 Respiratory rate 16 /min Mao Hickman MD Work Phone: [facility] 07-13-2022 14:38-0400 Systolic blood pressure 80 mm[Hg] Mao Hickman MD Work Phone: [facility] 07-13-2022 13:33-0400 Body temperature 96.49 [degF] Mao Hickman MD Work Phone: [facility] 06-30-2022 14:57-0400 Body height 161.9 cm Mao Hickman MD Work Phone: [facility] 06-30-2022 14:57-0400 Body temperature 97.39 [degF] Mao Hickman MD Work Phone: [facility] 06-30-2022 14:57-0400 Body weight 61.24 kg Mao Hickman MD Work Phone: [facility] 06-30-2022 14:57-0400 Diastolic blood pressure 90 mm[Hg] Mao Hickman MD Work Phone: [facility] 06-30-2022 14:57-0400 Heart rate 84 /min Mao Hickman MD Work Phone: [facility] 06-30-2022 14:57-0400 Respiratory rate 20 /min Mao Hickman MD Work Phone: [facility] 06-30-2022 14:57-0400 SaO2% (BldA) [Mass fraction] 98 % Mao Hickman MD Work Phone: [facility] 06-30-2022 14:57-0400 Systolic blood pressure 152 mm[Hg] Mao Hickman MD Work Phone: [facility] 1975 23:00-0500 >na< Sophia Thomas Dept. of Dermato logy Encounters Encounter Date Encounter Type Care Provider Facility Start: 11-08-2023 ambulatory MAO HICKMAN Facility:[id number] Start: 11-08-2023 End: 11-08-2023 Subsequent hospital visit by physician Mao Hickman MD Work Phone: [facility] Procedures Date Procedure Procedure Detail Performing Clinician Start: 11-01-2023 End: 11-01-2023 Injection anes lmbr/thrc paravertbrl sympathetic Mao Hickman MD Work Phone: Start: 11-16-2022 Fluoroscopy up to 1 hour physician/qhp time Mao Hickman MD Work Phone: Start: 11-16-2022 End: 11-16-2022 Injection anes lmbr/thrc paravertbrl sympathetic Mao Hickman MD Work Phone: Start: 11-09-2022 Fluoroscopy up to 1 hour physician/qhp time Mao Hickman MD Work Phone: Start: 11-09-2022 End: 11-09-2022 Injection anes lmbr/thrc paravertbrl sympathetic Mao Hickman MD Work Phone: Start: 11-04-2022 Fluoroscopy up to 1 hour physician/qhp time Mao Hickman MD Work Phone: Start: 11-04-2022 End: 11-04-2022 Dstr nrolytc agnt parverteb fct sngl lmbr/sacral Mao Hickman MD Work Phone: Start: 11-02-2022 End: 11-02-2022 Fluoroscopy up to 1 hour physician/qhp time Mao Hickman MD Work Phone: Start: 11-02-2022 End: 11-02-2022 Injection anes lmbr/thrc paravertbrl sympathetic Mao Hickman MD Work Phone: Start: 10-19-2022 End: 10-19-2022 Injection anes lmbr/thrc paravertbrl sympathetic Mao Hickman MD Work Phone: Start: 07-13-2022 Fluoroscopy up to 1 hour physician/qhp time Mao Hickman MD Work Phone: Start: 07-13-2022 End: 07-13-2022 Dstr nrolytc agnt parverteb fct sngl lmbr/sacral Mao Hickman MD Work Phone: Start: 06-28-2019 Lipid 1996 panel - S edson or Plasma Gertrude Roberto LEAFLET OR NEWSPAPER DELIVERER.CLINICAL SCIENCES PROFESSOR Work Phone: Start: 05-27-2017 Mammography Mauro Jett MD Work Phone: Plan of Treatment Date Care Activity Detail Author Start: 06-28-2029 DTaP/Tdap/Td Vaccines (3 - Td or Tdap) DTaP/Tdap/Td Vaccines (3 - Td or Tdap) [facility] Start: 06-28-2029 Urine microalbumin profile [facility] Start: 2026 Zoster Vaccines (1 of 2) Zoster Vaccines (1 of 2) [facility] Start: 06-28-2024 Lipid 1996 panel - Serum or Plasma Lipid Screening [facility] Start: 06-28-2024 Lipid panel Lipid Screening [facility] Start: 06-28-2024 LIPID SCREEN LIPID SCREEN [facility] Start: 05-27-2024 DIABETES SCREEN DIABETES SCREEN [facility] Start: 05-27-2024 Diabetes Screening Diabetes Screening [facility] Start: 12-27-2023 End: 12-27-2023 Telemedicine consultation with patient 12/27/2023 9:30 AM EDT Telemedicine [facility] [address] [facility] [address] [place] [id number] Soy Molina DO [address] [place] [address] [facility] Start: 09-15-2023 NPV, Provider: Soy Molina, Status: Pen, Time: 4:00 PM NPV, Provider: Soy Molina, Status: Pen, Time: 4:00 PM [facility] [address] Work Phone: Start: 07-12-2023 End: 10-11-2023 Follitropin [Units/volume] in Serum or Plasma [facility] Work Phone: Immunizations Immunization Date Immunization Notes Care Provider Fa cilimellissa 08-25-2022 influenza, injectabl e, quadrivalent, preservative free Soy Molina DO Work Phone: [facility] Work Phone: 08-25-2022 influenza virus vaccine, unspecified formulation Gertrude Romero APRN.CNP Work Phone: [facility] [facility] 09-03-2020 influenza, seasonal, injectable, preservative free Soy Molina DO Work Phone: [facility] Work Phone: 06-28-2019 tetanus and diphther ia toxoids, adsorbed, preservative free, for adult use (5 Lf of tetanus toxoid and 2 Lf of diphtheria toxoid) Mauro Patiño MD Work Phone: [facility] 06-18-2019 Influenza, injectabl e, Madin Christy Canine Kidney, preservative free, quadrivalent Soy Molina DO Work Phone: [facility] Work Phone: 06-18-2019 influenza, seasonal, injectable Mauro Patiño MD Work Phone: [facility] 05-08-2018 influenza, injectabl e, quadrivalent, preservative free Mauro Patiño MD Work Phone: [facility] 06-02-2017 influenza, injectabl e, quadrivalent, preservative free Mauro Patiño MD Work Phone: [facility] 05-22-2016 influenza, seasonal, injectable Mauro Patiño MD Work Phone: [facility] 05-22-2016 influenza, seasonal, injectable, preservative free Mauro Patiño MD Work Phone: [facility] 05-20-2015 influenza, seasonal, injectable, preservative free Mauro Patiño MD Work Phone: [facility] 07-19-2014 influenza, injectabl e, quadrivalent, preservative free Mauro Patiño MD Work Phone: [facility] 07-19-2014 influenza, seasonal, injectable Mauro Patiño MD Work Phone: [facility] 08-12-2012 pneumococcal polysaccharide vaccine, 23 valent Mauro Patiño MD Work Phone: [facility] 12-13-2006 measles virus vaccine Mauro Patiño MD Work Phone: [facility] 12-13-2006 measles, mumps and rubella virus vaccine Mauro Patiño MD Work Phone: [facility] Work Phone: 12-13-2006 mumps virus vaccine Mauro munoz MD Work Phone: [facility] 12-13-2006 rubella virus vaccine Mauro Patiño MD Work Phone: [facility] 12-13-2006 tetanus toxoid, redu whitney diphtheria toxoid, and acellular pertussis vaccine, adsorbed Mauro Patiño MD Work Phone: [facility] Work Phone: 1976 pneumococcal conjuga te vaccine, 7 valent [facility] Payers Date Payer Category Payer Medicaid [id number] 2015 Medicaid [id number] 2015 Medicare [id number] 2015 Unknown [id number] 2008 Medicare [id number] 2008 Medicare [id number] 1999 Unknown 1999 Unknown [id number] 1976 Unknown [id number] 2. [id number] 1976 Unknown [id number] 2. [id number] 1976 Unknown [id number] 2. [id number] 1976 Unknown [id number] 2. [id number] 1976 Unknown [id number] 2.16 [id number] 1976 Unknown [id number] 2.16 [id number] 1976 Unknown [id number] Social History Date Type Detail Facility Start: 03-30-2020 End: 02-18-2023 Never a smoker Never a smoker [facility] Goals Date Patient Goal Desired Activity /State Functional Status Date Assessment Result Facility NEGATED: Highlighted row Functional performance Functional status health issues are not documented Disease XC-Ofbtyjwgg-[facility]ep[facility] Work Phone: Mental Status Date Assessment Result Facility NEGATED: Highlighted row Cognitive function [Interpretation] Cognitive status health issues are not documented Disease PQ-Qyxynsfnt-Gjrgvz d 88 Work Phone: Clinical Notes 05-18-2016 to 11-03-2023 Telephone Encounter - Shelley Latham RN - 11/03/2023 10:38 AM ESTTelephone Encounter - Ronald Nolan PA-C - 11/03/2023 10:34 AM ESTTelephone Encounter - Dudley Tyler RN - 11/03/2023 9:56 AM EST Note Date & Type Note Facility 11-03-2023 Miscellaneous Notes Notified pt, she thought she was to take 10mg for each and that was the confusion, pt clarified she has enough for all procedures taking 5mg prior to each procedure Shelley Latham RN November 03, 2023 10:39 AM There was a script sent in on 10/31/23 for valium 10 mg. She has only been getting 5 mg 2 hours before each procedure, so the 4 pills from that script will be enough to cover the remaining pills. Have her only take 1/2 of a valium 10 mg 2 hours before each procedure. Pt called asking for Valium to be ordered for her procedure on 11/08/23. Please advise. Dudley Tyler RN November 03, 2023 9:56 AM documented in this encounter [facility] 11-01-2023 Note HNO ID: [id number] Author: XI VELÁSQUEZ RN Service: ? Author Type: Registered Nurse Type: Nursing Progress Note Filed: 11/01/2023 09:04 Note Text: IV d/c'd with catheter intact. Sterile dressing applied to site. [facility] 11-01-2023 Nurse Note IV d/c'd with catheter intact. Sterile dressing applied to site. IV initiated to right FA, #22g angiocath on first attempt. Secured with sterile opsite dressing. 500cc LR bolus infusing at w/o rate. documented in this encounter [facility] 11-01-2023 Hospital Discharg e Mao Estrada MD - 11/01/2023 8:05 AM EST Post-procedure instructions: 1. Rest today. You may feel drowsy the rest of the day. Avoid excessive bending, walking, and lifting. Resume your normal activities tomorrow. 2. Remove Band-Aid tomorrow. 3. Resume your current medications. If you are on any blood thinners or any other medications you were told to stop before your procedure, you may continue those tomorrow. 4. If you received oral sedation, no driving or alcohol for 24 hours. 5. You may shower, but no tub baths for 24 hours. 6. If you are diabetic, check your sugar for the next 5 days as the steroid may elevate you sugar. Call your medical doctor if you sugar is elevated. Before your next injection: (also refer to your pre-procedure checklist given to you when you scheduled your first injection) 1. Stop all blood thinners as you were directed. If you are unsure, please call our office for clarification. 2. If you were prescribed Valium prior to the procedure or if you are to receive oral sedation, you may eat as you normally would, but you do need a truck driver. Additional Instructions: documented in this encounter [facility] 11-01-2023 Surgical operatio n note Summary: Left LSB#1 Lumbar Sympathetic Block PROCEDURE: left lumbar sympathetic block CPT code: 64823, 96631-18, 03436 PREPROCEDURE DIAGNOSIS: Tarsal tunnel syndrome POSTPROCEDURE DIAGNOSIS: same ANESTHESIA: local PROCEDURE REPORT: The risks and benefits of the procedure were explained to the patient and all questions were answered. The patient gave consent to proceed with the procedure. A 500 mL fluid bolus was given over a period of 31 minutes. The patient was placed prone on the fluoroscopy table with a pillow under the epigastium. The skin was sterilely prepped and draped. The left lateral cephalad border of the L2 vertebral body was identified using an oblique fluoroscopic view. The overlying skin and subcutaneous tissue were infiltrated with lidocaine 1%. A 22G 127 mm spinal needle was advanced to the lateral cephalad border of the body of L2. The needle was then withdrawn and redirected laterally. It was advanced to slide at the lateral surface of the body of L2 under fluoroscopic guidance until it was just anterior to the anterior margin of L2. The position of the needle tip was confirmed with the injection of 1 mL of Isovue-M 200 contrast medium under continuous fluoroscopy. After negative aspiration, 20 mL of bupivacaine 0.25% was injected incrementally. The needle was withdrawn intact. The patient tolerated the procedure well with no complications noted. SIGNATURE: Mao Hickman MD PATIENT NAME: Tasha Lyn DATE: November 01, 2023 TIME: 8:02 AM documented in this encounter [facility] 10-31-2023 Note HNO ID: [id number] Author: RONALD NOLAN PA-C Service: ? Author Type: Physician Rn Psychiatric Type: Progress Notes Filed: 10/31/2023 09:28 Note Text: This note was created using [employer]. Subjective Tasha Lyn is a 47 year old female. The patient primarily being seen for back pain Patient was last seen on: 01/10/23 At that time, the treatment plan was: see notes Current Meds: Cymbalta am/ Tizanidine last pm Efficacy: helpful Side effects: tired TENS unit: yes How often used: prn Benefit: helpful Physical Therapy: Last UDS: 01/27/23-left L2-5 RFA Last injection: OARRS reviewed At the present time, the patient reports benefit with her present analgesic therapy. She states that the medications make her sleepy. Since her previous visit, she denies any hospitalizations or ER visits. She has increased stress due to going through a divorce. INTAKE PAIN ASSESSMENT 10/30/2023 10/31/2023 Are you having pain associated with your visit today? Yes, Provider notified Yes, Provider notified Pain Scales - Verbal (Numeric Rating or Visual Analog Scale) Pain Level 8 8 Pain Location Back-Lower Back-Lower Description Aching;Pressure;Spasm;Stiffness ;Tightness Pressure;Tightness Duration Amount of Time - - Duration Units Weeks - Frequency Continuous Continuous Intervention/Comfort measure Medication;Reposition;Positioni ng Medication;Relaxation;Other: See comment Comments Tens unit relief with RFA's Pain Assessment - - HPI PAST MEDICAL HISTORY Diagnosis Date Acne vulgaris: inflammatory grade III (chin and jawline face) 03/07/2014 Actinic Damage//Sun-Damaged Skin 04/24/2010 Anxiety 03/30/2019 Atypical nevus of flank 05/03/2014 Benign hypertensive heart disease without heart failure Candidiasis of skin and nails 12/15/2007 Chronic constipation 06/28/2019 Chronic insomnia 06/28/2019 Congenital pigmented melanocytic nevus 04/24/2010 CRPS (complex regional pain syndrome) 03/27/2014 DDD (degenerative disc disease), lumbar 04/09/2008 Degeneration of lumbar or lumbosacral intervertebral disc 04/09/2008 Dermatofibroma 03/07/2014 DVT (deep venous thrombosis) ([facility]) after foot surgery 2000 Dysthymic disorder Depression (non-psychotic)-POST DEPRESSION 1998 Edema 02/10/2010 Edema leg lymphodemia of left leg Embolism and thrombosis of unspecified site 2000 LT LEG Encounter for dietary counseling and surveillance 04/10/2013 Esophageal reflux 08/02/2006 Esophagitis, unspecified Essential hypertension, benign 11/23/2005 Generalized anxiety disorder 1999 Anxiety, Generalized History of gastric bypass 08/15/2013 History of gastric bypass 09/17/2013 History of irregular menstrual bleeding 12/03/2013 Hyperlipidemia LDL goal < 100 12/19/2012 Resolved since gastric bypass Hyperpigmentation of skin: under eyelids 02/22/2012 Hypertension Hypothyroid 09/19/2012 Irritable bowel syndrome 1997 Lumbago Medication overuse headache 08/22/2014 Melanocytic nevi of trunk 03/07/2014 Melanocytic Nevus of Trunk: Back 04/24/2010 Milial cyst 03/07/2014 Moderate episode of recurrent major depressive disorder (HCC) 04/09/2020 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 05/03/2014 Neuralgia, neuritis, and radiculitis, unspecified 11/29/2012 Obesity 07/15/2010 SAMARIA on CPAP Overactive bladder 10/02/2014 Porokeratosis 04/24/2010 Postphlebetic syndrome with other complication 12/28/2007 Postsurgical malabsorption, not elsewhere classified 11/25/2017 PTSD (post-traumatic stress disorder) 03/31/2020 Reflex sympathetic dystrophy of the lower limb 1999 LT. LEG3 Restless legs syndrome 01/06/2011 Rosacea 04/24/2010 Rotator cuff rupture right arm Sebaceous hyperplasia 03/07/2014 Skin tag(s) 04/24/2010 Solar Lentigines 04/24/2010 Strain of right knee and leg 05/18/2016 Surgical Scar: skin of upper lip 10/14/2010 Tarsal tunnel syndrome left Telangiectasias 04/24/2010 Tibial tendonitis, posterior, left Tinea corporis 08/25/2010 Type II or unspecified type diabetes mellitus without mention of complication, not stated as uncontrolled 09/18/2012 RESOLVED 09/2013 AFTER GASTRIC BYPASS Unspecified sleep apnea 2004 Sleep apnea Venous insufficiency of both lower extremities 10/03/2019 Viral warts, unspecified 04/24/2010 Vitamin D deficiency 01/20/2011 Xerosis cutis 08/25/2010 PAST SURGICAL HISTORY Procedure Laterality Date CHOLECYSTECTOMY 2003 laparoscopic ESOPHAGOGASTRODUODENOSCOPY TRANSORAL DIAGNOSTIC 05/17/2007 EGD ESSURE 2008 Connie and HSG showed no open tubes EXCISE EXCESS SKIN TISSUE,ABDOMEN 06/23/2020 GASTRIC BYPASS HX 08/15/2013 Lap. Lexis en Y, EGD, liver biopsy HYSTERECTOMY 05/26/2017 [facility] [place] MIDLINE INSERTION/CONSULT 08/15/2013 PAST SURGICAL HISTORY OF 2000 foot surgery REPAIR ROTATOR CUFF,ACUTE Right 05/06/2023 SUCT FAROOQ LIPECTOMY,LOW EXTREM Right 09/02/2020 right thigh SUCT FAROOQ LIP (more content not included)... [facility] 10-31-2023 Instructions Ronald Nolan PA-C - 10/31/2023 9:05 AM EST The OARRS report has been reviewed and is consistent with the patients medical history and medication intake. The patient will continue with duloxetine, tizanidine, zonisamide, and Maxalt. She will continue using her TENS unit. Call the company for supplies for the TENS unit. She will continue with core strengthening and range of motion exercises. Avoid migraine triggers. Schedule for L3-5 medial branch radiofrequency ablations x 2 visits, one side at each visit. Follow-up in office in 6 months time. I discussed the patient with Dr. Hickman who agrees with my assessment and plan. All of the above is to improve functionality and quality of life. No evidence of drug abuse or diversion is seen at this time. 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 If you are receiving oral sedation, you may eat a light meal. Clothing to wear: Back injections - elastic waist/jogging pants Neck injections - wide neck or button down shirt; please do not wear neck jewelry Plan to take it easy the rest of the day following your procedure. You may resume normal activities 24 hours following your procedure or as otherwise instructed. Special Instructions - NONE documented in this encounter [facility] 10-31-2023 History of Presen t illness Narrative This note was created using [employer]. Subjective Tasha Lyn is a 47 year old female. The patient primarily being seen for back pain Patient was last seen on: 01/10/23 At that time, the treatment plan was: see notes Current Meds: Cymbalta am/ Tizanidine last pm Efficacy: helpful Side effects: tired TENS unit: yes How often used: prn Benefit: helpful Physical Therapy: Last UDS: 01/27/23-left L2-5 RFA Last injection: OARRS reviewed At the present time, the patient reports benefit with her present analgesic therapy. She states that the medications make her sleepy. Since her previous visit, she denies any hospitalizations or ER visits. She has increased stress due to going through a divorce. INTAKE PAIN ASSESSMENT 10/30/2023 10/31/2023 Are you having pain associated with your visit today? Yes, Provider notified Yes, Provider notified Pain Scales - Verbal (Numeric Rating or Visual Analog Scale) Pain Level 8 8 Pain Location Back-Lower Back-Lower Description Aching;Pressure;Spasm;Stiffness ;Tightness Pressure;Tightness Duration Amount of Time - - Duration Units Weeks - Frequency Continuous Continuous Intervention/Comfort measure Medication;Reposition;Positioni ng Medication;Relaxation;Other: See comment Comments Tens unit relief with RFA's Pain Assessment - - HPI PAST MEDICAL HISTORY Diagnosis Date Acne vulgaris: inflammatory grade III (chin and jawline face) 03/07/2014 Actinic Damage//Sun-Damaged Skin 04/24/2010 Anxiety 03/30/2019 Atypical nevus of flank 05/03/2014 Benign hypertensive heart disease without heart failure Candidiasis of skin and nails 12/15/2007 Chronic constipation 06/28/2019 Chronic insomnia 06/28/2019 Congenital pigmented melanocytic nevus 04/24/2010 CRPS (complex regional pain syndrome) 03/27/2014 DDD (degenerative disc disease), lumbar 04/09/2008 Degeneration of lumbar or lumbosacral intervertebral disc 04/09/2008 Dermatofibroma 03/07/2014 DVT (deep venous thrombosis) (HCC) after foot surgery 2001 Dysthymic disorder 1997&1998 Depression (non-psychotic)-POST DEPRESSION 1998 Edema 02/10/2010 Edema leg lymphodemia of left leg Embolism and thrombosis of unspecified site 2000 LT LEG Encounter for dietary counseling and surveillance 04/10/2013 Esophageal reflux 08/02/2006 Esophagitis, unspecified Essential hypertension, benign 11/23/2005 Generalized anxiety disorder 1999 Anxiety, Generalized History of gastric bypass 08/15/2013 History of gastric bypass 09/17/2013 History of irregular menstrual bleeding 12/03/2013 Hyperlipidemia LDL goal < 100 12/19/2012 Resolved since gastric bypass Hyperpigmentation of skin: under eyelids 02/22/2012 Hypertension Hypothyroid 09/19/2012 Irritable bowel syndrome 1997 Lumbago Medication overuse headache 08/22/2014 Melanocytic nevi of trunk 03/07/2014 Melanocytic Nevus of Trunk: Back 04/24/2010 Milial cyst 03/07/2014 Moderate episode of recurrent major depressive disorder (HCC) 04/09/2020 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 05/03/2014 Neuralgia, neuritis, and radiculitis, unspecified 11/29/2012 Obesity 07/15/2010 SAMARIA on CPAP Overactive bladder 10/02/2014 Porokeratosis 04/24/2010 Postphlebetic syndrome with other complication 12/28/2007 Postsurgical malabsorption, not elsewhere classified 11/25/2017 PTSD (post-traumatic stress disorder) 03/31/2020 Reflex sympathetic dystrophy of the lower limb 1999 LT. LEG3 Restless legs syndrome 01/06/2011 Rosacea 04/24/2010 Rotator cuff rupture right arm Sebaceous hyperplasia 03/07/2014 Skin tag(s) 04/24/2010 Solar Lentigines 04/24/2010 Strain of right knee and leg 05/18/2016 Surgical Scar: skin of upper lip 10/14/2010 Tarsal tunnel syndrome left Telangiectasias 04/24/2010 Tibial tendonitis, posterior, left Tinea corporis 08/25/2010 Type II or unspecified type diabetes mellitus without mention of complication, not stated as uncontrolled 09/18/2012 RESOLVED 09/2013 AFTER GASTRIC BYPASS Unspecified sleep apnea 2004 Sleep apnea Venous insufficiency of both lower extremities 10/03/2019 Viral warts, unspecified 04/24/2010 Vitamin D deficiency 01/20/2011 Xerosis cutis 08/25/2010 PAST SURGICAL HISTORY Procedure Laterality Date CHOLECYSTECTOMY 2003 laparoscopic ESOPHAGOGASTRODUODENOSCOPY TRANSORAL DIAGNOSTIC 05/17/2007 EGD ESSURE 2008 Connie and HSG showed no open tubes EXCISE EXCESS SKIN TISSUE,ABDOMEN 06/23/2020 GASTRIC BYPASS HX 08/15/2013 Lap. Lexis en Y, EGD, liver biopsy HYSTERECTOMY 05/26/2017 [facility] [place] MIDLINE INSERTION/CONSULT 08/15/2013 PAST SURGICAL HISTORY OF 2001 foot surgery REPAIR ROTATOR CUFF,ACUTE Right 05/06/2023 SUCT FAROOQ LIPECTOMY,LOW EXTREM Right 09/02/2020 right thigh SUCT FAROOQ LIPECTOMY,LOW EXTREM Left 11/04/2020 left thigh Social History Tobacco Use Smoking status: Never Passive exposure: Current Smokeless tobacco: Never Tobacco comments: vapes Vaping Use Vaping Use: current everyday user Substances: Nicotine Substance Use Topics Alcohol use: No Drug use: No Review of Systems Constitutional: Negative for fever and unexpected weight change. Musculoskeletal: + back pain, joint pain/swelling, numbness, tingling, muscle cramps/weakness, stiffness, arthritis, restless legs, leg pain at night and leg pain with exertion Neurological: Positive for paresthesia Objective BP 135/86 (BP Site: Left Arm, BP Position: Sitting, BP Cuff Size: Large Adult) Pulse 70 Temp 36.5 C (97.7 F) (Temporal) Resp 18 LMP 07/01/2017 SpO2 98% Physical Exam Nursing note reviewed. Constitutional: Appearance: Normal appearance. She is well-developed, well-groomed and normal weight. HENT: Head: Normocephalic and atraumatic. Right Ear: Hearing normal. Left Ear: Hearing normal. Eyes: Conjunctiva/sclera: Conjunctivae normal. Comments: Wearing glasses Musculoskeletal: Comments: The patient walks with a normal gait. There is tenderness noted in the lumbar region with spasms noted in the trapezius and paraspinal muscles. She has lumbar facet loading noted bilaterally. Strength is 5/5 throughout. Allodynia and hyperpathia is present in the left lower leg and foot. She has tenderness noted in the left ankle with decreased ROM secondary to pain. SLR is negative. Neurological: Mental Status: She is alert and oriented to person, place, and time. Psychiatric: Attention and Perception: Attention and perception normal. Mood and Affect: Mood and affect normal. Speech: Speech normal. Behavior: Behavior normal. Behavior is cooperative. Thought Content: Thought content normal. Judgment: Judgment normal. Assessment and Plan ASSESSMENT/PLAN: 1. DDD (degenerative disc disease), lumbar - ICD9: 722.52, ICD10: M51.36 (primary diagnosis) The OARRS report has been reviewed and is consistent with the patients medical history and medication intake. The patient will continue with duloxetine, tizanidine, zonisamide, and Maxalt. She will continue using her TENS unit. Call the company for supplies for the TENS unit. She will continue with core strengthening and range of motion exercises. Avoid migraine triggers. Schedule for L3-5 medial branch radiofrequency ablations x 2 visits, one side at each visit. Follow-up in office in 6 months time. 2. Lumbar spondylosis - ICD9: 721.3, ICD10: M47.816 3. Sacroiliitis (HCC) - ICD9: 720.2, ICD10: M46.1 4. Idiopathic peripheral neuropathy - ICD9: 356.9, ICD10: G60.9 5. Osteoarthritis, generalized - ICD9: 715.00, ICD10: M15.9 6. Myofascial pain syndrome - ICD9: 729.1, ICD10: M79.18 7. Migraine without status migrainosus, not intractable, unspecified migraine type - ICD9: 346.90, ICD10: G43.909 Ronald Nolan PA-C documented in this encounter [facility] 10-26-2023 Miscellaneous Notes FU scheduled 10/31/23, insurance to be updated. The following approved medication requests have been transmitted electronically. Signed Prescriptions: Disp Refills diazePAM (VALIUM) 5 mg tablet 1 tabl*0 Sig: Take 1 tablet by mouth once daily for 1 day. Take one tablet 2 hours before procedure. Hold any muscle relaxers or sedatives while using this medication.Must have truck driver. Authorizing Provider: RONALD NOLAN PA-C Requested to be set up for the LSB X3 now that [facility] appeal won and appeal period over. Reviewed instructions, knows to come 1 hour early for IV bolus. Requested valium pre procedure and explained it is now only given 2 hours before the procedure. Gave DOS 11/01, 11/08, 11/14 all at 830am, must arrive @ 730am for boluses. Also requested to have the RFA's done again, but explained she will need a FUOV 1st. Stated she changed her insurance to Medicare and Medicaid but does not have a Medicaid number yet. Explained we will give her a DOS when insurance is in. documented in this encounter [facility] 10-20-2023 Miscellaneous Notes Orders are in. She'll need the procedure instructions and also needs to make sure she is there 30 minutes before each procedure to get her IV bolus prior to the injections. Semaj Tasha called and stated her C-9 for the blocks were approved at hearing. Please build cases for the 3 lumbar paravertebral sympathetic blocks so they can be scheduled. Candida Tam October 19, 2023 4:19 PM documented in this encounter [facility] 09-15-2023 History of Presen t illness Narrative Subjective Chief Complaint: Headache Tasha Lyn is a 47 y.o. year old female who presents with chief complaint of headaches. Tasha started getting headaches since she was a teenager. Headaches gradually worsening in frequency and severity. Currently having 15-20 VILLEGAS days per month. The headaches are usually throbbing and are located back of her head, generally symmetric. The patient rates her most severe headaches a 10 in intensity. Generally, headaches last about several hours in duration. Associated nausea, photophobia, and phonophobia. Headaches are worsened with exertion. Triggers include stress. Patient has visual aura. She uses Excedrin more than 15 days per month. On prior documentation, thunderclap headache was mentioned. On further clarification, the headache is not the worst headache of life, lasts sometimes a week and she has been having this type of headaches since her 20s. The overall description is not consistent with thunderclap headache. Has tried the following medications and treatments: Told to avoid NSAIDS because of gastric bypass surgery. Aspirin works faster Excedrin migraine can help sometimes. Maxalt 10mg hit and miss, sometimes does not work, can take awhile to kick in. Duloxetine for leg pain, not helpful for headaches. Trazodone 100 mg sometimes works for sleep. Zonisamide 100 mg helpful, no side effects reported. Magnesium 500mg without noticed change in headaches. Past Meds: Vraylar intense shaking and muscles would constrict, felt very hot. Tizanidine 4 mg was taking for years, thoughts would feel weird, but it did help to relax muscles. Buspirone not very effective for anxiety. Doxepine would take a day to work. Sumatriptan ineffective. ROS: As per HPI, otherwise all other systems have been reviewed are negative for complaint. No past medical history on file. No past surgical history on file. Family History Problem Relation Name Age of Onset Cerebral aneurysm Mother Lung cancer Mother Other (CVA) Father Migraines Father Heart attack Father Migraines Brother Social History Tobacco Use Smoking status: Not on file Smokeless tobacco: Not on file Substance Use Topics Alcohol use: Not on file Objective BP 148/72 Pulse 78 Resp 16 Ht 1.6 m (5' 3 ) Wt 61.7 kg (136 lb) BMI 24.09 kg/m Neuro Exam: Neurological Exam: MENTAL STATUS: General Appearance: No distress, alert, interactive, and cooperative. Orientation was normal to time, place and person. Recent and remote memory was intact. OPHTHALMOSCOPIC: The ophthalmoscopic exam with no optic disc swelling CRANIAL NERVES: CN 2 Visual osuna full to confrontation. CN 3, 4, 6 Pupils round, 4 mm in diameter, equally reactive to light. Lids symmetric; no ptosis. EOMs normal alignment, full range with normal saccades, pursuit and convergence. No nystagmus. CN 5 Facial sensation intact bilaterally. CN 7 Normal and symmetric facial strength. Nasolabial folds symmetric. CN 8 Hearing intact to conversation CN 9, 10 Palate elevates symmetrically. CN 11 Limited by right shoulder pain CN 12 Tongue midline, with normal bulk and strength; no fasciculations. MOTOR: Muscle bulk and tone were normal in both upper and lower extremities. No pronator drift bilaterally. No fasciculations, tremor evident with the patient examined clothed. STRENGTH: R L Biceps 5 5 Triceps 5 5 Hip flexion 5 >4 limited by pain Knee Flex 5 >4 limited by pain Knee Ex 5 >4 limited by pain SENSORY: Reports baseline numbness in the left lower extremity COORDINATION: In both upper extremities, [id number] was intact without dysmetria or overshoot. GAIT: Station was stable with a normal base and gait. Assessment/Plan 47 years old female with chronic migraine with aura and medication overuse headache. Patient was counseled on stopping Excedrin and the plan to start Ajovy. -Start Ajovy -Follow-up 3 months Associated attestation - Soy Molina DO - 09/16/2023 10:55 AM EST I saw and evaluated the patient. I personally obtained the medrano and critical portions of the history and physical exam or was physically present for medrano and critical portions performed by the trainee. I reviewed the trainee's documentation and discussed the patient with the trainee. I agree with the trainee's medical decision making, as documented on the trainee's note, with the exception/addition of the following: Given description and frequency of headaches, patient has chronic migraine wwo aura. Discussed possible thunderclap headaches extensively, and very unlikely to be thunderclap headaches as pain was very similar to migraines and would last up to a week in duration without significant fluctuation. Likely a component of MOH from excedrin. Per our discussion, will start Ajovy for migraine prevention and continue rizatriptan for breakthrough headaches. Follow up in 4 months. I personally spent 64 minutes today, exclusive of procedures, providing care for this patient, including preparation, face to face time, documentation and other services such as review of medical records, diagnostic result, patient education, counseling, coordination of care as specified in the encounter. documented in this encounter [facility] Work Phone: 09-15-2023 Instructions William Camejo MD - 09/15/2023 4:00 PM EST Thank you for visiting the headache clinic at [facility] you were seen by Dr. Camejo and Dr. Molina. We believe that you have chronic migraine with aura as well as medication overuse headache. Avoid Excedrin and other xyrh-ptn-[id number] pain medications. We will continue with the current therapy and add Ajovy for headache prevention. We have prescribed a medication for you called Ajovy. This is a once monthly injectable for migraine prophylaxis. The goal of a good migraine prophylactic is the reduction of headache frequency and severity by 50% or more. The main side effects to Ajovy is injection site reaction. For injection site reaction, these normally clear up within 3 days, however Benadryl and Tylenol can help. It can take up to 3 months to know if this medication is working for you. This was ordered to the specialty pharmacy for assistance with prior authorization. It can take a few weeks to get medication approval. Once approved, you will receive a call from the pharmacy to deliver to your home. documented in this encounter [facility] Work Phone: 07-25-2023 Note HNO ID: [id number] Author: Mao Hickman MD Service: ? Author Type: Anesthesiologist Type: Progress Notes Filed: 07/25/2023 4:55 PM Note Text: This note was created using [employer]ar[employer]. Subjective Tasha Lyn is a 47 year old female. The patient primarily being seen for left leg pain [facility] Patient was last seen on: 02/18/23 At that time, the treatment plan was: see notes Current Meds: Cymbalta last dose this am,Tizanidine last dose taking Flexeril last pm Efficacy: meds help pain Side effects: tired TENS unit: no How often used: Benefit: Physical Therapy: Last UDS: no meds Last injection: 11/16/22 LSB OARRS reviewed yes INTAKE PAIN ASSESSMENT 07/12/2023 07/25/2023 Are you having pain associated with your visit today? No Yes, Provider notified Pain Scales - Verbal (Numeric Rating or Visual Analog Scale) Pain Level - 8 Pain Location - Leg-Left Description - Other: See comment Duration Amount of Time - - Duration Units - - Frequency - Continuous Intervention/Comfort measure - Medication;Other: See comment Comments - - Pain Assessment - - HPI Patient is getting adequate relief from the present regimen and denies any side effect from it. This has improved the patient?s level of functionality and has been able to perform activities of daily living. The patient exhibits no aberrant behavior. The PDMP report and last UDS are both consistent with prescribed medications and are unremarkable. Patient is requesting for repeat series of lumbar sympathetic blocks. She also wants to go back to tizanidine as it worked better than cyclobenzaprine. Review of Systems Constitutional: Negative for fever and unexpected weight change. Musculoskeletal: + back pain, joint pain/swelling, numbness, tingling, muscle cramps/weakness, stiffness, arthritis, restless legs, leg pain at night and leg pain with exertion Neurological: Positive for paresthesia Objective BP 152/101 Pulse 80 Temp 36.3 ?C (97.3 ?F) Resp 18 LMP 07/01/2017 SpO2 99% Physical Exam Nursing note reviewed. Constitutional: General: She is not in acute distress. Appearance: Normal appearance. She is well-developed, well-groomed and normal weight. HENT: Head: Normocephalic and atraumatic. Right Ear: Hearing and external ear normal. Left Ear: Hearing and external ear normal. Nose: Nose normal. Eyes: General: No scleral icterus. Extraocular Movements: Extraocular movements intact. Conjunctiva/sclera: Conjunctivae normal. Musculoskeletal: Comments: The patient walks with a normal gait. There is increased pain on weightbearing and range of motion of the left ankle. Allodynia and hyperpathia is present on her left lower leg and foot. Skin: General: Skin is warm and dry. Neurological: Mental Status: She is alert and oriented to person, place, and time. Psychiatric: Attention and Perception: Attention and perception normal. Mood and Affect: Mood and affect normal. Speech: Speech normal. Behavior: Behavior normal. Behavior is cooperative. Thought Content: Thought content normal. Judgment: Judgment normal. Assessment and Plan ASSESSMENT/PLAN: 1. Tarsal tunnel syndrome, left - [facility] - ICD9: 355.5, ICD10: G57.52 (primary diagnosis) 2. Posterior tibial tendinitis of left leg - [facility] - ICD9: 726.72, ICD10: M76.822 3. Post-phlebitic syndrome of lower leg, left - [facility] - ICD9: 459.19, ICD10: I87.092 PLAN: Patient will resume tizanidine. She will continue with duloxetine. She will continue with core strengthening and range of motion exercises. Patient was advised to avoid tobacco products. She will be scheduled for a series of 3 left lumbar sympathetic blocks. Follow-up in office in 3 months time. 30 minutes spent for chronic pain management distinct from evaluation and management Two or more stable chronic illness and prescription medication management This document was transcribed using a voice recognition software and may contain minor errors. Mao Hickman MD [facility] 07-25-2023 History of Presen t illness Narrative This note was created using [employer]. Subjective Tasha Lyn is a 47 year old female. The patient primarily being seen for left leg pain [facility] Patient was last seen on: 02/18/23 At that time, the treatment plan was: see notes Current Meds: Cymbalta last dose this am,Tizanidine last dose taking Flexeril last pm Efficacy: meds help pain Side effects: tired TENS unit: no How often used: Benefit: Physical Therapy: Last UDS: no meds Last injection: 11/16/22 LSB OARRS reviewed yes INTAKE PAIN ASSESSMENT 07/12/2023 07/25/2023 Are you having pain associated with your visit today? No Yes, Provider notified Pain Scales - Verbal (Numeric Rating or Visual Analog Scale) Pain Level - 8 Pain Location - Leg-Left Description - Other: See comment Duration Amount of Time - - Duration Units - - Frequency - Continuous Intervention/Comfort measure - Medication;Other: See comment Comments - - Pain Assessment - - HPI Patient is getting adequate relief from the present regimen and denies any side effect from it. This has improved the patient s level of functionality and has been able to perform activities of daily living. The patient exhibits no aberrant behavior. The PDMP report and last UDS are both consistent with prescribed medications and are unremarkable. Patient is requesting for repeat series of lumbar sympathetic blocks. She also wants to go back to tizanidine as it worked better than cyclobenzaprine. Review of Systems Constitutional: Negative for fever and unexpected weight change. Musculoskeletal: + back pain, joint pain/swelling, numbness, tingling, muscle cramps/weakness, stiffness, arthritis, restless legs, leg pain at night and leg pain with exertion Neurological: Positive for paresthesia Objective BP 152/101 Pulse 80 Temp 36.3 C (97.3 F) Resp 18 LMP 07/01/2017 SpO2 99% Physical Exam Nursing note reviewed. Constitutional: General: She is not in acute distress. Appearance: Normal appearance. She is well-developed, well-groomed and normal weight. HENT: Head: Normocephalic and atraumatic. Right Ear: Hearing and external ear normal. Left Ear: Hearing and external ear normal. Nose: Nose normal. Eyes: General: No scleral icterus. Extraocular Movements: Extraocular movements intact. Conjunctiva/sclera: Conjunctivae normal. Musculoskeletal: Comments: The patient walks with a normal gait. There is increased pain on weightbearing and range of motion of the left ankle. Allodynia and hyperpathia is present on her left lower leg and foot. Skin: General: Skin is warm and dry. Neurological: Mental Status: She is alert and oriented to person, place, and time. Psychiatric: Attention and Perception: Attention and perception normal. Mood and Affect: Mood and affect normal. Speech: Speech normal. Behavior: Behavior normal. Behavior is cooperative. Thought Content: Thought content normal. Judgment: Judgment normal. Assessment and Plan ASSESSMENT/PLAN: 1. Tarsal tunnel syndrome, left - [facility] - ICD9: 355.5, ICD10: G57.52 (primary diagnosis) 2. Posterior tibial tendinitis of left leg - [facility] - ICD9: 726.72, ICD10: M76.822 3. Post-phlebitic syndrome of lower leg, left - [facility] - ICD9: 459.19, ICD10: I87.092 PLAN: Patient will resume tizanidine. She will continue with duloxetine. She will continue with core strengthening and range of motion exercises. Patient was advised to avoid tobacco products. She will be scheduled for a series of 3 left lumbar sympathetic blocks. Follow-up in office in 3 months time. 30 minutes spent for chronic pain management distinct from evaluation and management Two or more stable chronic illness and prescription medication management This document was transcribed using a voice recognition software and may contain minor errors. 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 If you are receiving oral sedation, you may eat a light meal. Clothing to wear: Back injections - elastic waist/jogging pants Neck injections - wide neck or button down shirt; please do not wear neck jewelry Plan to take it easy the rest of the day following your procedure. You may resume normal activities 24 hours following your procedure or as otherwise instructed. Special Instructions - NONE Patient will resume tizanidine. She will continue with duloxetine. She will continue with core strengthening and range of motion exercises. Patient was advised to avoid tobacco products. She will be scheduled for a series of 3 left lumbar sympathetic blocks. Follow-up in office in 3 months time. documented in this encounter [facility] 07-12-2023 Note HNO ID: [id number] Author: Gertrude Romero APRN.CLINICAL SCIENCES PROFESSOR Service: ? Author Type: Nurse Practitioner Type: Progress Notes Filed: 07/12/2023 7:47 AM Note Text: Tasha is a 47 year old who presents for an annual gynecologic exam with complaints, menopausal symptoms. Menses: hysterectomy 2017. Contraception: hysterectomy HPV vaccine: No Last Pap: 03/17/2012 normal HPV: N/A History of abnormal pap: No Last mammogram: normal done @ [facility] [place] Sexually active: Yes Pain with intercourse: No Postcoital bleeding: No OB History T2 L2 SAB0 IAB1 Ectopic0 Multiple0 Live Births3 Director Telecommunications History LMP: 07/01/2017, Hysterectomy Age at Menarche: Age at First : Age at Menopause: Director Telecommunications History Comments: Sexual Activity: Yes; Male; Essure Contraception: Other PAST MEDICAL HISTORY Diagnosis Date Acne vulgaris: inflammatory grade III (chin and jawline face) 03/07/2014 Actinic Damage//Sun-Damaged Skin 04/24/2010 Anxiety 03/30/2019 Atypical nevus of flank 05/03/2014 Benign hypertensive heart disease without heart failure Candidiasis of skin and nails 12/15/2007 Chronic constipation 06/28/2019 Chronic insomnia 06/28/2019 Congenital pigmented melanocytic nevus 04/24/2010 CRPS (complex regional pain syndrome) 03/27/2014 DDD (degenerative disc disease), lumbar 04/09/2008 Degeneration of lumbar or lumbosacral intervertebral disc 04/09/2008 Dermatofibroma 03/07/2014 DVT (deep venous thrombosis) ([facility]) after foot surgery 2000 Dysthymic disorder Depression (non-psychotic)-POST DEPRESSION 1998 Edema 02/10/2010 Embolism and thrombosis of unspecified site 2001 LT LEG Encounter for dietary counseling and surveillance 04/10/2013 Esophageal reflux 08/02/2006 Esophagitis, unspecified Essential hypertension, benign 11/23/2005 Generalized anxiety disorder 1999 Anxiety, Generalized History of gastric bypass 08/15/2013 History of gastric bypass 09/17/2013 History of irregular menstrual bleeding 12/03/2013 Hyperlipidemia LDL goal < 100 12/19/2012 Resolved since gastric bypass Hyperpigmentation of skin: under eyelids 02/22/2012 Hypertension Hypothyroid 09/19/2012 Irritable bowel syndrome 1997 Lumbago Medication overuse headache 08/22/2014 Melanocytic nevi of trunk 03/07/2014 Melanocytic Nevus of Trunk: Back 04/24/2010 Milial cyst 03/07/2014 Moderate episode of recurrent major depressive disorder (HCC) 04/09/2020 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 05/03/2014 Neuralgia, neuritis, and radiculitis, unspecified 11/29/2012 Obesity 07/15/2010 SAMARIA on CPAP Overactive bladder 10/02/2014 Porokeratosis 04/24/2010 Postphlebetic syndrome with other complication 12/28/2007 Postsurgical malabsorption, not elsewhere classified 11/25/2017 PTSD (post-traumatic stress disorder) 03/31/2020 Reflex sympathetic dystrophy of the lower limb 1999 LT. LEG3 Restless legs syndrome 01/06/2011 Rosacea 04/24/2010 Rotator cuff rupture right arm Sebaceous hyperplasia 03/07/2014 Skin tag(s) 04/24/2010 Solar Lentigines 04/24/2010 Strain of right knee and leg 05/18/2016 Surgical Scar: skin of upper lip 10/14/2010 Tarsal tunnel syndrome left Telangiectasias 04/24/2010 Tibial tendonitis, posterior, left Tinea corporis 08/25/2010 Type II or unspecified type diabetes mellitus without mention of complication, not stated as uncontrolled 09/18/2012 RESOLVED 09/2013 AFTER GASTRIC BYPASS Unspecified sleep apnea 2004 Sleep apnea Venous insufficiency of both lower extremities 10/03/2019 Viral warts, unspecified 04/24/2010 Vitamin D deficiency 01/20/2011 Xerosis cutis 08/25/2010 PAST SURGICAL HISTORY Procedure Laterality Date CHOLECYSTECTOMY 2002 laparoscopic ESOPHAGOGASTRODUODENOSCOPY TRANSORAL DIAGNOSTIC 05/17/2007 EGD ESSURE 2007 [place] and HSG showed no open tubes EXCISE EXCESS SKIN TISSUE,ABDOMEN 06/23/2020 GASTRIC BYPASS HX 08/15/2013 Lap. Lexis en Y, EGD, liver biopsy HYSTERECTOMY 05/26/2017 [facility] [place] MIDLINE INSERTION/CONSULT 08/15/2013 PAST SURGICAL HISTORY OF 2000 foot surgery REPAIR ROTATOR CUFF,ACUTE Right 05/06/2023 SUCT FAROOQ LIPECTOMY,LOW EXTREM Right 09/02/2020 right thigh SUCT FAROOQ LIPECTOMY,LOW EXTREM Left 11/04/2020 left thigh FAMILY HISTORY Problem Relation Age of Onset Heart Mother ASHD Hypertension Mother Psychiatry Father MANIC DEPRESSIVE SCHIZOPHRIENA Coronary Artery Disease Father Cancer Maternal Grandmother 2 TYPES Diabetes Maternal Grandfather Hypertension Brother other (schizophrenia) Brother SOCIAL HISTORY Social History Tobacco Use Smoking status: Never Passive exposure: Current Smokeless tobacco: Never Tobacco comments: vapes Vaping Use Vaping Use: current everyday user Substances: Nicotine Substance Use Topics Alcohol use: No Drug use: No REVIEW OF SYSTEMS Abdomen: No abdominal pain, nausea, vomiting, diarrhea, or constipation. No bl (more content not included)... [facility] 07-12-2023 History of Presen t illness Narrative Tasha is a 47 year old who presents for an annual gynecologic exam with complaints, menopausal symptoms. Menses: hysterectomy 2017. Contraception: hysterectomy HPV vaccine: No Last Pap: 03/17/2012 normal HPV: N/A History of abnormal pap: No Last mammogram: normal done @ [facility] [place] Sexually active: Yes Pain with intercourse: No Postcoital bleeding: No OB History T2 L2 SAB0 IAB1 Ectopic0 Multiple0 Live Births3 Director Telecommunications History LMP: 07/01/2017, Hysterectomy Age at Menarche: Age at First : Age at Menopause: Director Telecommunications History Comments: Sexual Activity: Yes; Male; Essure Contraception: Other PAST MEDICAL HISTORY Diagnosis Date Acne vulgaris: inflammatory grade III (chin and jawline face) 03/07/2014 Actinic Damage//Sun-Damaged Skin 04/24/2010 Anxiety 03/30/2019 Atypical nevus of flank 05/03/2014 Benign hypertensive heart disease without heart failure Candidiasis of skin and nails 12/15/2007 Chronic constipation 06/28/2019 Chronic insomnia 06/28/2019 Congenital pigmented melanocytic nevus 04/24/2010 CRPS (complex regional pain syndrome) 03/27/2014 DDD (degenerative disc disease), lumbar 04/09/2008 Degeneration of lumbar or lumbosacral intervertebral disc 04/09/2008 Dermatofibroma 03/07/2014 DVT (deep venous thrombosis) (HCC) after foot surgery 2001 Dysthymic disorder 1997&1998 Depression (non-psychotic)-POST DEPRESSION 1998 Edema 02/10/2010 Embolism and thrombosis of unspecified site 2001 LT LEG Encounter for dietary counseling and surveillance 04/10/2013 Esophageal reflux 08/02/2006 Esophagitis, unspecified Essential hypertension, benign 11/23/2005 Generalized anxiety disorder 1999 Anxiety, Generalized History of gastric bypass 08/15/2013 History of gastric bypass 09/17/2013 History of irregular menstrual bleeding 12/03/2013 Hyperlipidemia LDL goal < 100 12/19/2012 Resolved since gastric bypass Hyperpigmentation of skin: under eyelids 02/22/2012 Hypertension Hypothyroid 09/19/2012 Irritable bowel syndrome 1997 Lumbago Medication overuse headache 08/22/2014 Melanocytic nevi of trunk 03/07/2014 Melanocytic Nevus of Trunk: Back 04/24/2010 Milial cyst 03/07/2014 Moderate episode of recurrent major depressive disorder (HCC) 04/09/2020 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 05/03/2014 Neuralgia, neuritis, and radiculitis, unspecified 11/29/2012 Obesity 07/15/2010 SAMARIA on CPAP Overactive bladder 10/02/2014 Porokeratosis 04/24/2010 Postphlebetic syndrome with other complication 12/28/2007 Postsurgical malabsorption, not elsewhere classified 11/25/2017 PTSD (post-traumatic stress disorder) 03/31/2020 Reflex sympathetic dystrophy of the lower limb 1999 LT. LEG3 Restless legs syndrome 01/06/2011 Rosacea 04/24/2010 Rotator cuff rupture right arm Sebaceous hyperplasia 03/07/2014 Skin tag(s) 04/24/2010 Solar Lentigines 04/24/2010 Strain of right knee and leg 05/18/2016 Surgical Scar: skin of upper lip 10/14/2010 Tarsal tunnel syndrome left Telangiectasias 04/24/2010 Tibial tendonitis, posterior, left Tinea corporis 08/25/2010 Type II or unspecified type diabetes mellitus without mention of complication, not stated as uncontrolled 09/18/2012 RESOLVED 09/2013 AFTER GASTRIC BYPASS Unspecified sleep apnea 2004 Sleep apnea Venous insufficiency of both lower extremities 10/03/2019 Viral warts, unspecified 04/24/2010 Vitamin D deficiency 01/20/2011 Xerosis cutis 08/25/2010 PAST SURGICAL HISTORY Procedure Laterality Date CHOLECYSTECTOMY 2002 laparoscopic ESOPHAGOGASTRODUODENOSCOPY TRANSORAL DIAGNOSTIC 05/17/2007 EGD ESSURE 2008 [place] and HSG showed no open tubes EXCISE EXCESS SKIN TISSUE,ABDOMEN 06/23/2020 GASTRIC BYPASS HX 08/15/2013 Lap. Lexis en Y, EGD, liver biopsy HYSTERECTOMY 05/26/2017 [facility] [place] MIDLINE INSERTION/CONSULT 08/15/2013 PAST SURGICAL HISTORY OF 2001 foot surgery REPAIR ROTATOR CUFF,ACUTE Right 05/06/2023 SUCT FAROOQ LIPECTOMY,LOW EXTREM Right 09/02/2020 right thigh SUCT FAROOQ LIPECTOMY,LOW EXTREM Left 11/04/2020 left thigh FAMILY HISTORY Problem Relation Age of Onset Heart Mother ASHD Hypertension Mother Psychiatry Father MANIC DEPRESSIVE SCHIZOPHRIENA Coronary Artery Disease Father Cancer Maternal Grandmother 2 TYPES Diabetes Maternal Grandfather Hypertension Brother other (schizophrenia) Brother SOCIAL HISTORY Social History Tobacco Use Smoking status: Never Passive exposure: Current Smokeless tobacco: Never Tobacco comments: vapes Vaping Use Vaping Use: current everyday user Substances: Nicotine Substance Use Topics Alcohol use: No Drug use: No REVIEW OF SYSTEMS Abdomen: No abdominal pain, nausea, vomiting, diarrhea, or constipation. No bloating, early satiety, indigestion, or increased flatulence. Bladder: No dysuria, gross hematuria, urinary frequency, urinary urgency, or incontinence. Breast: No breast lumps, nipple d/c, overlying skin changes, redness or skin retraction. Allergies and current medication updated:Yes EXAM: Ht 5' 3 (1.60m) Wt 139 lb 12.8 oz (63.4kg) LMP 07/01/2017 BMI 24.77 kg/(m^2). GENERAL: pleasant, female in no apparent distress HEENT: Normocephalic, atraumatic, mucus membranes moist, and no lesions NECK: Supple, full range of motion, no adenopathy, and thyroid normal DERMATOLOGY: Normal, without lesions, non-icteric, and non-hirsute BREAST: soft, non-tender, symmetric, no dominant mass, normal nipple-areolar complex, no lymphadenopathy, and no nipple discharge CHEST: Normal inspiratory effort ABDOMEN: soft, non-tender, and no masses PELVIC: external genitalia normal, normal Bartholin's glands, urethra, Safford's glands, no vulvar lesions, physiologic discharge present, normal appearing perineal body and perianal region, cervix surgically absent BIMANUAL: no adnexal masses, non-tender, and uterus surgically absent RECTOVAGINAL: deferred. NEURO: alert and oriented x3,exam grossly non-focal EXTREMITIES: normal ASSESSMENT/PLAN: 1) Health maintenance: Mammogram ordered. Nutrition, exercise and routine health maintenance exams reviewed. Calcium/Vitamin D supplementation information provided. 2) Contraception: hysterectomy. Contraceptive options reviewed and information provided. 3) STD screening: Declined STD check. 4) Follow up one year or sooner as needed [facility]SH for menopause symptoms Gertrude Romero APRN.STEFFI documented in this encounter [facility] 06-29-2023 Miscellaneous Notes Tasha notified with verbalized understanding Hina Key RN June 29, 2023 3:26 PM ok Tasha called stating her psychiatrist started her on anafanil and latuda . She was told to check with you prior to starting these medications if it is ok to take with duloxetine you order Hina Key RN June 29, 2023 10:27 AM documented in this encounter [facility] 06-09-2023 Miscellaneous Notes Message left asking pt to call the office for further orders and information. Nancy Miller LPN Left message to call office Mammogram ordered. Is she still having a monthly cycle? If so the labs are not necessary and I can discuss that more at her visit. Gertrude Romero APRN.STEFFI Spoke with pt and she is wanting to have her mammogram and lab work done within [facility]. Please see pended order for mammogram and advise in regards to menopausal labs. Pt will then be assisted to schedule appointment. Nancy Miller LPN Message left for pt to contact office to update if she wants her mammogram and labwork done at [facility] or does she use [facility] [place]. Nancy Miller LPN Patient requesting a mammogram screening order and blood work to see if she is in menopause. I scheduled her for an annual on 07/12/23. Please review and advise. Babs Conde documented in this encounter [facility] 05-19-2023 Miscellaneous Notes The following approved medication requests have been transmitted electronically. Requested Prescriptions Pending Prescriptions Disp Refills cyclobenzaprine (FLEXERIL) 10 mg tablet 90 tablet 3 Sig: Take 0.5-1 tablets by mouth three times daily as needed for muscle spasm. Ronald Nolan PA-C Tasha notified with verbalized understanding She will discontinue tizanidine and start cyclobenzaprine per order Prescription set up to send Requested Prescriptions Pending Prescriptions Disp Refills cyclobenzaprine (FLEXERIL) 10 mg tablet 90 tablet 3 Sig: Take 0.5-1 tablets by mouth three times daily as needed for muscle spasm. Please review and advise. Hina Key RN We can try cyclobenzaprine 10mg 1/2-1 tab up to three times a day if needed #90 with 3 refills. Tasha called asking for a change in tizanidine She states she has been on it for a long time now when she takes it she feels off and not right If she skips a day she feels better but when reintroduces it she does not feel right again She can not be more symptom specific She only remembers using Robaxin in the past Could we change to another muscle relaxant? Hina Key RN May 19, 2023 12:46 PM documented in this encounter [facility] 05-19-2023 Miscellaneous Notes The following approved medication requests have been transmitted electronically. Requested Prescriptions Pending Prescriptions Disp Refills zonisamide (ZONEGRAN) 100 mg capsule 120 capsule 3 Sig: Take 4 capsules by mouth once daily. Taking over prescribing CTP [id number] Ronald Nolan PA-C Patient phones requesting refills as follows: Requested Prescriptions Pending Prescriptions Disp Refills zonisamide (ZONEGRAN) 100 mg capsule 120 capsule 3 Sig: Take 4 capsules by mouth once daily. Taking over prescribing CTP [id number] Please review and advise. Hina Key RN documented in this encounter [facility] 04-07-2023 Miscellaneous Notes The following approved medication requests have been transmitted electronically. Requested Prescriptions Pending Prescriptions Disp Refills tiZANidine (ZANAFLEX) 4 mg tablet 60 tablet 3 Sig: Take 0.5-1 tablets by mouth twice daily as needed. Ronald Nolan PA-C Patient phones requesting refills as follows: Requested Prescriptions Pending Prescriptions Disp Refills tiZANidine (ZANAFLEX) 4 mg tablet 60 tablet 3 Sig: Take 0.5-1 tablets by mouth twice daily as needed. Please review and advise. Hina Key RN documented in this encounter [facility] 04-01-2023 Note HNO ID: [id number] Author: Maxine Rivas, DO Service: ? Author Type: Physician Type: Progress Notes Filed: 04/04/2023 11:03 AM Note Text: [facility] [place] [facility] Department of Cardiovascular Medicine SECTION OF VASCULAR MEDICINE OUTPATIENT VISIT DATE April 01, 2023 OUTPATIENT VISIT TYPE ESTABLISHED Nursing Intake: Patient is here today for left leg swelling. She does not have pain in the leg today. She states she wears compression stockings daily, however, she is not wearing them for this appointment. Follow up regarding: left leg swelling, h/o DVT and varicose veins Allergies: is allergic to doxycycline, effexor [venlafaxine hcl], hctz [other], hydrochlorothiazide, lipitor [atorvastatin calcium], oxybutynin, penicillins, pravastatin, silicone, hvjukcx-sjw-bah reductase inhibitors, topamax [topiramate], zocor [simvastatin], and zoloft [sertraline hcl]. Medications: Current Outpatient Medications Medication Sig lamoTRIgine (LAMICTAL) 150 mg tablet OLANZapine (ZYPREXA) 5 mg tablet DULoxetine (CYMBALTA) 60 mg capsule Take 1 capsule by mouth twice daily. zonisamide (ZONEGRAN) 100 mg capsule Take 4 capsules by mouth once daily. Taking over prescribing CTP [id number] cream base no.103, bulk, crea Apply to affected area as directed. Apply 1-2 grams every 6-8 hours as needed for pain traZODone (DESYREL) 100 mg tablet Take 1 tablet by mouth daily at bedtime. tiZANidine (ZANAFLEX) 4 mg tablet Take 0.5-1 tablets by mouth twice daily as needed. omeprazole (PRILOSEC) 40 mg capsule Take 1 capsule by mouth once daily. cetirizine (ZYRTEC) 10 mg tablet Take 1 tablet by mouth once daily. fluticasone (FLONASE) 50 mcg/actuation nasal spray Use 2 Sprays in each nostril once daily. Rinse mouth after use. levothyroxine (SYNTHROID) 50 mcg tablet Take 1 tablet by mouth once daily. docusate sodium (COLACE) 100 mg capsule Colace 100 mg capsule vit-iron fumarate-fa 28 mg iron- 800 mcg tab 28 mg iron- 800 mcg tablet nystatin (NYAMYC) powder APPLY TO AFFECTED AREA(S) THREE TIMES A DAY Magnesium 250 mg tab Take 250 mg by mouth once daily. biotin-keratin 10,000-100 mcg-mg tab Take 10,000 mg by mouth once daily. cyanocobalamin (VITAMIN B-12) 500 mcg tablet Take 1 tablet by mouth once daily. Coenzyme Q10 200 mg cap Take 200 mg by mouth once daily. polyethylene glycol 3350 (MIRALAX, GLYCOLAX) 17 gram/dose powder Take 17 g by mouth once daily. rizatriptan (MAXALT) 10 mg tablet Take 1 tablet by mouth as needed. May repeat in 2 hours if needed COMPOUNDED PRESCRIPTION KNEE HIGH COMPRESSION STOCKINGS 30-40 MM. DX: EDEMA ascorbic acid, vitamin C, (VITAMIN C) 500 mg tablet Take 500 mg by mouth once daily. CALCIUM CITRATE/VITAMIN D3 (CALCIUM CITRATE + ORAL) Take by mouth. No current facility-administered medications for this visit. Review of history: prior visit on 12/15/16 Subjective: c/o worsening left leg swelling, wears off the shelf 30-40 mmHg gradient compressions socks most days but still has worsening swelling. Denies significant pain at present but left leg swelling is uncomfortable. Admits to RSD affecting left leg. Reports plan for right shoulder rotator cuff surgery next week. Objective: BP 172/85 (BP Site: Left Arm, BP Position: Sitting, BP Cuff Size: Regular Adult) Pulse 71 Ht 160 cm (5' 3 ) Wt 64.3 kg (141 lb 11.2 oz) LMP 07/01/2017 SpO2 100% BMI 25.10 kg/m? General: Alert and oriented, in no acute distress, pleasant mood. Skin: Healthy, intact, no ulcerations, no rashes. HEENT: Head normocephalic, extraocular muscles intact, sclera anicteric, nasal and oral mucosa moist and pink, neck supple, no JVD, no carotid bruit. Cardiovascular: Heart has a regular rate and rhythm without murmur. Respiratory: Lungs clear auscultation bilaterally. Gastrointestinal: Abdomen soft and nontender. Musculoskeletal: No cyanosis or clubbing. Peripheral vascular: Dorsalis pedis and posterior tibial pulses 2+/2 bilaterally. Feet and toes warm pink and well perfused. Lower extremities: left leg shallow pitting edema. left ankle and base of toes prominent creases/skin folds. + Stemmer sign in left foot. Labs most recent labs on record Component Latest Ref Rng AND Units 05/27/2021 WBC 3.70 - 11.00 k/uL 8.26 RBC 3.90 - 5.20 m/uL 4.35 Hemoglobin 11.5 - 15.5 g/dL 13.4 Hematocrit 36.0 - 46.0 % 41.2 MCV 80.0 - 100.0 fL 94.7 MCH 26.0 - 34.0 pG 30.8 MCHC 30.5 - 36.0 g/dL 32.5 RDW-CV 11.5 - 15.0 % 13.8 Platelet Count 150 - 400 k/uL 238 MPV 9.0 - 12.7 fL 10.3 Neut% % 75.0 Abs Neut (ANC) 1.45 - 7.50 k/uL 6.20 Lymph% % 17.2 Abs Lymph 1.00 - 4.00 k/uL 1.42 Orange% % 5.0 Abs Orange <0.87 k/uL 0.41 Eosin% % 2.2 Abs Eosin <0.46 k/uL 0.18 Baso% % 0.6 Abs Baso <0.11 k/uL 0.05 Nucleated Reds 0 /100 WBC 0.0 Absolute nRBC <0.01 k/uL <0.01 Diff Type Auto Diff Protein, Total 6.3 - 8.0 g/dL 6.7 Albumin 3.9 (more content not included)... [facility] 02-18-2023 Note HNO ID: [id number] Author: Ronald Nolan PA-C Service: ? Author Type: Physician Rn Psychiatric Type: Progress Notes Filed: 02/18/2023 7:57 AM Note Text: This note was created using [employer]. Subjective I have communicated my name and active licensure. The patient's identity and physical location were verified at the time of this visit. Either the patient or their legal account services representative has been informed of the risks and benefits of -- and alternatives to -- treatment through a remote evaluation and consents to proceed with the evaluation remotely. Tasha Lyn is a 47 year old female. The patient primarily being seen for left leg pain-[facility] Patient was last seen on: 12/15/22 At that time, the treatment plan was: see notes Current Meds: Cymbalta am/ Tizanidine am Efficacy: helpful Side effects: tired TENS unit: How often used: Benefit: Physical Therapy: Last UDS: Last injection: 11/16/22-LSB OARRS reviewed At the present time, the patient reports benefit with her present analgesic therapy. The medications make her tired. Since her previous visit, she denies any hospitalizations or ER visits. The lumbar sympathetic block gave her approximately 98% relief of her left leg pain but is starting to get worse. She is noticing more redness. She would like to know if she could try increasing the duloxetine. INTAKE PAIN ASSESSMENT 01/27/2023 02/18/2023 Are you having pain associated with your visit today? - Yes, Provider notified Pain Scales - Verbal (Numeric Rating or Visual Analog Scale) Pain Level 0 9 Pain Location - Leg-Left Description - Burning;Pressure;Tingling;Numbn ess Duration Amount of Time - - Duration Units - - Frequency - Continuous Intervention/Comfort measure - Medication;Relaxation;Other: See comment Comments - relief with LSB Pain Assessment Reassessment - PAST MEDICAL HISTORY Diagnosis Date Acne vulgaris: inflammatory grade III (chin and jawline face) 03/07/2014 Actinic Damage//Sun-Damaged Skin 04/24/2010 Anxiety 03/30/2019 Atypical nevus of flank 05/03/2014 Benign hypertensive heart disease without heart failure Candidiasis of skin and nails 12/15/2007 Chronic constipation 06/28/2019 Chronic insomnia 06/28/2019 Congenital pigmented melanocytic nevus 04/24/2010 CRPS (complex regional pain syndrome) 03/27/2014 DDD (degenerative disc disease), lumbar 04/09/2008 Degeneration of lumbar or lumbosacral intervertebral disc 04/09/2008 Dermatofibroma 03/07/2014 DVT (deep venous thrombosis) (HCC) after foot surgery 2000 Dysthymic disorder Depression (non-psychotic)-POST DEPRESSION 1998 Edema 02/10/2010 Embolism and thrombosis of unspecified site 2000 LT LEG Encounter for dietary counseling and surveillance 04/10/2013 Esophageal reflux 08/02/2006 Esophagitis, unspecified Essential hypertension, benign 11/23/2005 Generalized anxiety disorder 1999 Anxiety, Generalized History of gastric bypass 08/15/2013 History of gastric bypass 09/17/2013 History of irregular menstrual bleeding 12/03/2013 Hyperlipidemia LDL goal < 100 12/19/2012 Resolved since gastric bypass Hyperpigmentation of skin: under eyelids 02/22/2012 Hypertension Hypothyroid 09/19/2012 Irritable bowel syndrome 1997 Lumbago Medication overuse headache 08/22/2014 Melanocytic nevi of trunk 03/07/2014 Melanocytic Nevus of Trunk: Back 04/24/2010 Milial cyst 03/07/2014 Moderate episode of recurrent major depressive disorder (HCC) 04/09/2020 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 05/03/2014 Neuralgia, neuritis, and radiculitis, unspecified 11/29/2012 Obesity 07/15/2010 SAMARIA on CPAP Overactive bladder 10/02/2014 Porokeratosis 04/24/2010 Postphlebetic syndrome with other complication 12/28/2007 Postsurgical malabsorption, not elsewhere classified 11/25/2017 PTSD (post-traumatic stress disorder) 03/31/2020 Reflex sympathetic dystrophy of the lower limb 1999 LT. LEG3 Restless legs syndrome 01/06/2011 Rosacea 04/24/2010 Sebaceous hyperplasia 03/07/2014 Skin tag(s) 04/24/2010 Solar Lentigines 04/24/2010 Strain of right knee and leg 05/18/2016 Surgical Scar: skin of upper lip 10/14/2010 Tarsal tunnel syndrome left Telangiectasias 04/24/2010 Tibial tendonitis, posterior, left Tinea corporis 08/25/2010 Type II or unspecified type diabetes mellitus without mention of complication, not stated as uncontrolled 09/18/2012 RESOLVED 09/2013 AFTER GASTRIC BYPASS Unspecified sleep apnea 2004 Sleep apnea Venous insufficiency of both lower extremities 10/03/2019 Viral warts, unspecified 04/24/2010 Vitamin D deficiency 01/20/2011 Xerosis cutis 08/25/2010 PAST SURGICAL HISTORY Procedure Laterality Date CHOLECYSTECTOMY 2002 laparoscopic ESOPHAGOGASTRODUODENOSCOPY TRANSORAL DIAGNOSTIC 05/17/2007 EGD ESSURE [address] [place] [address] and HSG showed no open tubes EXCISE EXCESS SKIN TISSUE,ABDOMEN 06/23/2020 GASTRIC BYPASS HX 12 (more content not included)... [facility] 01-18-2023 Miscellaneous Notes The following approved medication requests have been transmitted electronically. Requested Prescriptions Pending Prescriptions Disp Refills DULoxetine (CYMBALTA) 60 mg capsule 30 capsule 3 Sig: Take 1 capsule by mouth once daily. zonisamide (ZONEGRAN) 100 mg capsule 120 capsule 3 Sig: Take 4 capsules by mouth once daily. Taking over prescribing CTP [id number] Ronald Nolan PA-C Requested Prescriptions Pending Prescriptions Disp Refills DULoxetine (CYMBALTA) 60 mg capsule 30 capsule 3 Sig: Take 1 capsule by mouth once daily. zonisamide (ZONEGRAN) 100 mg capsule 120 capsule 3 Sig: Take 4 capsules by mouth once daily. Taking over prescribing CTP [id number] Please review and advise. Hina Key RN documented in this encounter [facility] 01-10-2023 Note HNO ID: [id number] Author: Ronald Nolan PA-C Service: ? Author Type: Physician Rn Psychiatric Type: Progress Notes Filed: 01/10/2023 1:11 PM Note Text: This note was created using [employer]. I have communicated my name and active licensure. The patient's identity and physical location were verified at the time of this visit. Either the patient or their legal account services representative has been informed of the risks and benefits of -- and alternatives to -- treatment through a remote evaluation and consents to proceed with the evaluation remotely. Subjective Tasha Lyn is a 47 year old female. The patient primarily being seen for back pain Patient was last seen on: 08/24/22 At that time, the treatment plan was: see notes Current Meds: Cymbalta am/ Tizanidine am Efficacy: helpful Side effects: tired TENS unit: yes How often used: rarely Benefit: helpful Physical Therapy: Last UDS: Last injection: 11/04/22-right L2-5 RFA OARRS reviewed At the present time, the patient reports benefit with her present analgesic therapy. She states that the medications make her sleepy. Since her previous visit, she denies any hospitalizations or ER visits. She would like to get the left side lumbar radiofrequency ablations done which were last done in July and helpful until this point. INTAKE PAIN ASSESSMENT 01/08/2023 01/10/2023 Are you having pain associated with your visit today? Yes, Provider notified Yes, Provider notified Pain Scales - Verbal (Numeric Rating or Visual Analog Scale) Pain Level 9 8 Pain Location Back-Lower Back-Lower Description Aching;Pressure;Shooting;Spasm; Tightness Pressure;Radiating Duration Amount of Time 4 - Duration Units Weeks - Frequency Continuous Continuous Intervention/Comfort measure Medication;Relaxation;Other: See comment Medication;Relaxation;Heat;Othe r: See comment Comments Rfa?S relief with injection Pain Assessment - - HPI PAST MEDICAL HISTORY Diagnosis Date Acne vulgaris: inflammatory grade III (chin and jawline face) 03/07/2014 Actinic Damage//Sun-Damaged Skin 04/24/2010 Anxiety 03/30/2019 Atypical nevus of flank 05/03/2014 Benign hypertensive heart disease without heart failure Candidiasis of skin and nails 12/15/2007 Chronic constipation 06/28/2019 Chronic insomnia 06/28/2019 Congenital pigmented melanocytic nevus 04/24/2010 CRPS (complex regional pain syndrome) 03/27/2014 DDD (degenerative disc disease), lumbar 04/09/2008 Degeneration of lumbar or lumbosacral intervertebral disc 04/09/2008 Dermatofibroma 03/07/2014 DVT (deep venous thrombosis) ([facility]) after foot surgery 2000 Dysthymic disorder Depression (non-psychotic)-POST DEPRESSION 1998 Edema 02/10/2010 Embolism and thrombosis of unspecified site 2001 LT LEG Encounter for dietary counseling and surveillance 04/10/2013 Esophageal reflux 08/02/2006 Esophagitis, unspecified Essential hypertension, benign 11/23/2005 Generalized anxiety disorder 1999 Anxiety, Generalized History of gastric bypass 08/15/2013 History of gastric bypass 09/17/2013 History of irregular menstrual bleeding 12/03/2013 Hyperlipidemia LDL goal < 100 12/19/2012 Resolved since gastric bypass Hyperpigmentation of skin: under eyelids 02/22/2012 Hypertension Hypothyroid 09/19/2012 Irritable bowel syndrome 1997 Lumbago Medication overuse headache 08/22/2014 Melanocytic nevi of trunk 03/07/2014 Melanocytic Nevus of Trunk: Back 04/24/2010 Milial cyst 03/07/2014 Moderate episode of recurrent major depressive disorder (HCC) 04/09/2020 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 05/03/2014 Neuralgia, neuritis, and radiculitis, unspecified 11/29/2012 Obesity 07/15/2010 SAMARIA on CPAP Overactive bladder 10/02/2014 Porokeratosis 04/24/2010 Postphlebetic syndrome with other complication 12/28/2007 Postsurgical malabsorption, not elsewhere classified 11/25/2017 PTSD (post-traumatic stress disorder) 03/31/2020 Reflex sympathetic dystrophy of the lower limb 1999 LT. LEG3 Restless legs syndrome 01/06/2011 Rosacea 04/24/2010 Sebaceous hyperplasia 03/07/2014 Skin tag(s) 04/24/2010 Solar Lentigines 04/24/2010 Strain of right knee and leg 05/18/2016 Surgical Scar: skin of upper lip 10/14/2010 Tarsal tunnel syndrome left Telangiectasias 04/24/2010 Tibial tendonitis, posterior, left Tinea corporis 08/25/2010 Type II or unspecified type diabetes mellitus without mention of complication, not stated as uncontrolled 09/18/2012 RESOLVED 09/2013 AFTER GASTRIC BYPASS Unspecified sleep apnea 2004 Sleep apnea Venous insufficiency of both lower extremities 10/03/2019 Viral warts, unspecified 04/24/2010 Vitamin D deficiency 01/20/2011 Xerosis cutis 08/25/2010 PAST SURGICAL HISTORY Procedure Laterality Date CHOLECYSTECTOMY 2002 laparoscopic ESOPHAGOGASTRODUODENOSCOPY TRANSORAL DIAGNOSTIC 05/17/2007 EGD ESSURE 2008 [place] and HSG showed n (more content not included)... [facility] 01-10-2023 Instructions Ronald Nolan PA-C - 01/10/2023 1:05 PM EDT The OARRS report has been reviewed and is consistent with the patients medical history and medication intake. The patient will continue with duloxetine, tizanidine, zonisamide, and Maxalt. She will continue using her TENS unit. Call the company for supplies for the TENS unit. She will continue with core strengthening and range of motion exercises. Avoid migraine triggers. Patient will be rescheduled for the left L2-5 medial branch radiofrequency ablation once it is approved. Follow-up in office in 6 months time. I discussed the patient with Dr. Hickman who agrees with my assessment and plan. All of the above is to improve functionality and quality of life. No evidence of drug abuse or diversion is seen at this time. 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 If you are receiving oral sedation, you may eat a light meal. Clothing to wear: Back injections - elastic waist/jogging pants Neck injections - wide neck or button down shirt; please do not wear neck jewelry Plan to take it easy the rest of the day following your procedure. You may resume normal activities 24 hours following your procedure or as otherwise instructed. Special Instructions - NONE documented in this encounter [facility] 01-10-2023 History of Presen t illness Narrative This note was created using [employer]. I have communicated my name and active licensure. The patient's identity and physical location were verified at the time of this visit. Either the patient or their legal account services representative has been informed of the risks and benefits of -- and alternatives to -- treatment through a remote evaluation and consents to proceed with the evaluation remotely. Subjective Tasha Lyn is a 47 year old female. The patient primarily being seen for back pain Patient was last seen on: 08/24/22 At that time, the treatment plan was: see notes Current Meds: Cymbalta am/ Tizanidine am Efficacy: helpful Side effects: tired TENS unit: yes How often used: rarely Benefit: helpful Physical Therapy: Last UDS: Last injection: 11/04/22-right L2-5 RFA OARRS reviewed At the present time, the patient reports benefit with her present analgesic therapy. She states that the medications make her sleepy. Since her previous visit, she denies any hospitalizations or ER visits. She would like to get the left side lumbar radiofrequency ablations done which were last done in July and helpful until this point. INTAKE PAIN ASSESSMENT 01/08/2023 01/10/2023 Are you having pain associated with your visit today? Yes, Provider notified Yes, Provider notified Pain Scales - Verbal (Numeric Rating or Visual Analog Scale) Pain Level 9 8 Pain Location Back-Lower Back-Lower Description Aching;Pressure;Shooting;Spasm; Tightness Pressure;Radiating Duration Amount of Time 4 - Duration Units Weeks - Frequency Continuous Continuous Intervention/Comfort measure Medication;Relaxation;Other: See comment Medication;Relaxation;Heat;Othe r: See comment Comments Rfa S relief with injection Pain Assessment - - HPI PAST MEDICAL HISTORY Diagnosis Date Acne vulgaris: inflammatory grade III (chin and jawline face) 03/07/2014 Actinic Damage//Sun-Damaged Skin 04/24/2010 Anxiety 03/30/2019 Atypical nevus of flank 05/03/2014 Benign hypertensive heart disease without heart failure Candidiasis of skin and nails 12/15/2007 Chronic constipation 06/28/2019 Chronic insomnia 06/28/2019 Congenital pigmented melanocytic nevus 04/24/2010 CRPS (complex regional pain syndrome) 03/27/2014 DDD (degenerative disc disease), lumbar 04/09/2008 Degeneration of lumbar or lumbosacral intervertebral disc 04/09/2008 Dermatofibroma 03/07/2014 DVT (deep venous thrombosis) ([facility]) after foot surgery 2000 Dysthymic disorder 1997&1998 Depression (non-psychotic)-POST DEPRESSION 1998 Edema 02/10/2010 Embolism and thrombosis of unspecified site 2001 LT LEG Encounter for dietary counseling and surveillance 04/10/2013 Esophageal reflux 08/02/2006 Esophagitis, unspecified Essential hypertension, benign 11/23/2005 Generalized anxiety disorder 1999 Anxiety, Generalized History of gastric bypass 08/15/2013 History of gastric bypass 09/17/2013 History of irregular menstrual bleeding 12/03/2013 Hyperlipidemia LDL goal < 100 12/19/2012 Resolved since gastric bypass Hyperpigmentation of skin: under eyelids 02/22/2012 Hypertension Hypothyroid 09/19/2012 Irritable bowel syndrome 1997 Lumbago Medication overuse headache 08/22/2014 Melanocytic nevi of trunk 03/07/2014 Melanocytic Nevus of Trunk: Back 04/24/2010 Milial cyst 03/07/2014 Moderate episode of recurrent major depressive disorder (HCC) 04/09/2020 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 05/03/2014 Neuralgia, neuritis, and radiculitis, unspecified 11/29/2012 Obesity 07/15/2010 SAMARIA on CPAP Overactive bladder 10/02/2014 Porokeratosis 04/24/2010 Postphlebetic syndrome with other complication 12/28/2007 Postsurgical malabsorption, not elsewhere classified 11/25/2017 PTSD (post-traumatic stress disorder) 03/31/2020 Reflex sympathetic dystrophy of the lower limb 1999 LT. LEG3 Restless legs syndrome 01/06/2011 Rosacea 04/24/2010 Sebaceous hyperplasia 03/07/2014 Skin tag(s) 04/24/2010 Solar Lentigines 04/24/2010 Strain of right knee and leg 05/18/2016 Surgical Scar: skin of upper lip 10/14/2010 Tarsal tunnel syndrome left Telangiectasias 04/24/2010 Tibial tendonitis, posterior, left Tinea corporis 08/25/2010 Type II or unspecified type diabetes mellitus without mention of complication, not stated as uncontrolled 09/18/2012 RESOLVED 09/2013 AFTER GASTRIC BYPASS Unspecified sleep apnea 2004 Sleep apnea Venous insufficiency of both lower extremities 10/03/2019 Viral warts, unspecified 04/24/2010 Vitamin D deficiency 01/20/2011 Xerosis cutis 08/25/2010 PAST SURGICAL HISTORY Procedure Laterality Date CHOLECYSTECTOMY 2002 laparoscopic ESOPHAGOGASTRODUODENOSCOPY TRANSORAL DIAGNOSTIC 05/17/2007 EGD ESSURE 2008 [place] and [facility] showed no open tubes EXCISE EXCESS SKIN TISSUE,ABDOMEN 06/23/2020 GASTRIC BYPASS HX 08/15/2013 Lap. Lexis en Y, EGD, liver biopsy HYSTERECTOMY 05/26/2017 [facility] [place] [facility] INSERTION/CONSULT 08/15/2013 PAST SURGICAL HISTORY OF 2000 foot surgery SUCT FAROOQ LIPECTOMY,LOW EXTREM Right 09/02/2020 right thigh SUCT FAROOQ LIPECTOMY,LOW EXTREM Left 11/04/2020 left thigh Social History Tobacco Use Smoking status: Never Smokeless tobacco: Never Tobacco comments: vapes Substance Use Topics Alcohol use: No Drug use: No Review of Systems Constitutional: Negative for fever and unexpected weight change. Musculoskeletal: + back pain, joint pain/swelling, numbness, tingling, muscle cramps/weakness, stiffness, arthritis, restless legs, leg pain at night and leg pain with exertion Neurological: Positive for paresthesia Objective LMP 07/01/2017 Physical Exam Nursing note reviewed. Constitutional: Appearance: Normal appearance. She is well-developed and well-groomed. HENT: Head: Normocephalic and atraumatic. Right Ear: Hearing normal. Left Ear: Hearing normal. Eyes: Conjunctiva/sclera: Conjunctivae normal. Musculoskeletal: Comments: Normal posture, cervical ROM is intact. Neurological: Mental Status: She is alert and oriented to person, place, and time. Psychiatric: Attention and Perception: Attention and perception normal. Mood and Affect: Mood and affect normal. Speech: Speech normal. Behavior: Behavior normal. Behavior is cooperative. Thought Content: Thought content normal. Judgment: Judgment normal. Assessment and Plan ASSESSMENT/PLAN: 1. DDD (degenerative disc disease), lumbar - ICD9: 722.52, ICD10: M51.36 (primary diagnosis) The OARRS report has been reviewed and is consistent with the patients medical history and medication intake. The patient will continue with duloxetine, tizanidine, zonisamide, and Maxalt. She will continue using her TENS unit. Call the company for supplies for the TENS unit. She will continue with core strengthening and range of motion exercises. Avoid migraine triggers. Patient will be rescheduled for the left L2-5 medial branch radiofrequency ablation once it is approved. Follow-up in office in 6 months time. 2. Lumbar spondylosis - ICD9: 721.3, ICD10: M47.816 - DIAZEPAM 10 MG TABLET - SURGICAL REQUEST - ELECTIVE (04/2020) 3. Sacroiliitis (HCC) - ICD9: 720.2, ICD10: M46.1 4. Idiopathic peripheral neuropathy - ICD9: 356.9, ICD10: G60.9 5. Osteoarthritis, generalized - ICD9: 715.00, ICD10: M15.9 6. Migraine without status migrainosus, not intractable, unspecified migraine type - ICD9: 346.90, ICD10: G43.909 7. Myofascial pain syndrome - ICD9: 729.1, ICD10: M79.18 Ronald Nolan PA-C documented in this encounter [facility] 12-15-2022 Instructions Mao Hickman MD - 12/15/2022 11:48 AM EDT The patient will continue with tizanidine and duloxetine. We will send a prescription for a compounded cream. She will continue using her TENS unit. Continue with core strengthening and range of motion exercises. She will check with her vascular surgeon regarding leg swelling. Follow-up in office in 3 months time. documented in this encounter [facility] 12-15-2022 Note HNO ID: [id number] Author: Mao Hickman MD Service: ? Author Type: Physician Type: Progress Notes Filed: 01/13/2023 5:04 PM Note Text: This note was created using NoteWriter. Subjective Tasha Lyn is a 47 year old female. The patient primarily being seen for left leg pain - [facility] Patient was last seen on: 06/09/22 At that time, the treatment plan was: see notes Current Meds: Cymbalta - last dose this am, Tizanidine - this am Efficacy: help Side effects: tiredness TENS unit: yes - not using on left leg AND foot How often used: Benefit: Physical Therapy: no Last UDS: no narcotics Last injection: 11/04/22 - Left Lumbar Sympathetic Block #3 - states 90% pain relief OARRS reviewed INTAKE PAIN ASSESSMENT 11/16/2022 12/15/2022 Are you having pain associated with your visit today? - Yes, Provider notified Pain Scales - Verbal (Numeric Rating or Visual Analog Scale) Pain Level 0 4 Pain Location - Leg-Left Description - Aching;Dull;Sharp;Stabbing Duration Amount of Time - - Duration Units - Years Frequency - Intermittent Intervention/Comfort measure - Medication Comments - - Pain Assessment Reassessment - HPI Patient is getting adequate relief from the present regimen and denies any side effect from it. This has improved the patient?s level of functionality and has been able to perform activities of daily living. The patient exhibits no aberrant behavior. The PDMP report and last UDS are both consistent with prescribed medications and are unremarkable. It has been complaining of swelling in pain on her left leg and the back of her knee lately. Review of Systems Constitutional: Negative for fever and unexpected weight change. Musculoskeletal: + back pain, joint pain/swelling, numbness, tingling, muscle cramps/weakness, stiffness, arthritis, restless legs, leg pain at night and leg pain with exertion Neurological: Positive for paresthesia Objective LMP 07/01/2017 Physical Exam Nursing note reviewed. Constitutional: Appearance: Normal appearance. She is well-developed and well-groomed. HENT: Head: Normocephalic and atraumatic. Right Ear: Hearing and external ear normal. Left Ear: Hearing and external ear normal. Nose: Nose normal. Eyes: General: No scleral icterus. Extraocular Movements: Extraocular movements intact. Conjunctiva/sclera: Conjunctivae normal. Musculoskeletal: Comments: Normal posture, cervical ROM is intact. Neurological: Mental Status: She is alert and oriented to person, place, and time. Psychiatric: Attention and Perception: Attention and perception normal. Mood and Affect: Mood and affect normal. Speech: Speech normal. Behavior: Behavior normal. Behavior is cooperative. Thought Content: Thought content normal. Judgment: Judgment normal. Assessment and Plan ASSESSMENT/PLAN: 1. Tarsal tunnel syndrome, left - [facility] - ICD9: 355.5, ICD10: G57.52 (primary diagnosis) 2. Posterior tibial tendinitis of left leg - [facility] - ICD9: 726.72, ICD10: M76.822 3. Post-phlebitic syndrome of lower leg, left - [facility] - ICD9: 459.19, ICD10: I87.092 PLAN: The patient will continue with tizanidine and duloxetine. We will send a prescription for a compounded cream. She will continue using her TENS unit. Continue with core strengthening and range of motion exercises. She will check with her vascular surgeon regarding leg swelling. Follow-up in office in 3 months time. 30 minutes spent for chronic pain management distinct from evaluation and management Two or more stable chronic illness and prescription medication management This document was transcribed using a voice recognition software and may contain minor errors. Mao Hickman MD [facility] 12-15-2022 History of Presen t illness Narrative This note was created using ClubKviarriter. Subjective Tasha Lyn is a 47 year old female. The patient primarily being seen for left leg pain - [facility] Patient was last seen on: 06/09/22 At that time, the treatment plan was: see notes Current Meds: Cymbalta - last dose this am, Tizanidine - this am Efficacy: help Side effects: tiredness TENS unit: yes - not using on left leg & foot How often used: Benefit: Physical Therapy: no Last UDS: no narcotics Last injection: 11/04/22 - Left Lumbar Sympathetic Block #3 - states 90% pain relief OARRS reviewed INTAKE PAIN ASSESSMENT 11/16/2022 12/15/2022 Are you having pain associated with your visit today? - Yes, Provider notified Pain Scales - Verbal (Numeric Rating or Visual Analog Scale) Pain Level 0 4 Pain Location - Leg-Left Description - Aching;Dull;Sharp;Stabbing Duration Amount of Time - - Duration Units - Years Frequency - Intermittent Intervention/Comfort measure - Medication Comments - - Pain Assessment Reassessment - HPI Patient is getting adequate relief from the present regimen and denies any side effect from it. This has improved the patient s level of functionality and has been able to perform activities of daily living. The patient exhibits no aberrant behavior. The PDMP report and last UDS are both consistent with prescribed medications and are unremarkable. It has been complaining of swelling in pain on her left leg and the back of her knee lately. Review of Systems Constitutional: Negative for fever and unexpected weight change. Musculoskeletal: + back pain, joint pain/swelling, numbness, tingling, muscle cramps/weakness, stiffness, arthritis, restless legs, leg pain at night and leg pain with exertion Neurological: Positive for paresthesia Objective LMP 07/01/2017 Physical Exam Nursing note reviewed. Constitutional: Appearance: Normal appearance. She is well-developed and well-groomed. HENT: Head: Normocephalic and atraumatic. Right Ear: Hearing and external ear normal. Left Ear: Hearing and external ear normal. Nose: Nose normal. Eyes: General: No scleral icterus. Extraocular Movements: Extraocular movements intact. Conjunctiva/sclera: Conjunctivae normal. Musculoskeletal: Comments: Normal posture, cervical ROM is intact. Neurological: Mental Status: She is alert and oriented to person, place, and time. Psychiatric: Attention and Perception: Attention and perception normal. Mood and Affect: Mood and affect normal. Speech: Speech normal. Behavior: Behavior normal. Behavior is cooperative. Thought Content: Thought content normal. Judgment: Judgment normal. Assessment and Plan ASSESSMENT/PLAN: 1. Tarsal tunnel syndrome, left - [facility] - ICD9: 355.5, ICD10: G57.52 (primary diagnosis) The patient will continue with tizanidine and duloxetine. We will send a prescription for a compounded cream. She will continue using her TENS unit. Continue with core strengthening and range of motion exercises. She will check with her vascular surgeon regarding leg swelling. Follow-up in office in 3 months time. 2. Posterior tibial tendinitis of left leg - [facility] - ICD9: 726.72, ICD10: M76.822 3. Post-phlebitic syndrome of lower leg, left - [facility] - ICD9: 459.19, ICD10: I87.092 30 minute visit Greater than two stable chronic illness and prescription medication management. This document was transcribed using a voice recognition software and may contain minor errors. Mao Hickman MD documented in this encounter [facility] 11-25-2022 Miscellaneous Notes It appears patient never came in to est care with providers office and is schedule for new patient physical on 01/07/2023 Pt last seen 10/14/21. Please call pt to arrange routine appt with pcp or [facility]. Patient has been identified by name and date of : Yes Requested Prescriptions Pending Prescriptions Disp Refills traZODone (DESYREL) 100 mg tablet 30 tablet 5 Sig: Take 1 tablet by mouth daily at bedtime. RX INSTRUCTIONS: Pharmacy initiated this request. No need to notify patient. Sophia Day Pss documented in this encounter [facility] 11-16-2022 Nurse Note 500cc LR completely infused w/o infiltration. IV d/c'd with cath intact. Sterile dressing applied to IV site. IV initiated to left forearm #20g angiocath on first attempt. Sterile dressing applied. 500cc bolus Lactated Ringers infusing at w/o rate. No infiltration noted. Patient tolerated well. documented in this encounter [facility] 11-16-2022 Hospital Discharg e instructions Mao Hickman MD - 11/16/2022 2:17 PM EST Post Lumbar Sympathetic Block: After the procedure, you may experience the sensation of warmth or tingling in the leg or foot. You may experience dizziness due to a decrease in your blood pressure. Lying down helps to relieve this. Maintain adequate fluid intake. documented in this encounter [facility] 11-16-2022 Surgical operatio n note Summary: Left LSB#3 [facility] G57.72 Lumbar Sympathetic Block PROCEDURE: Left lumbar sympathetic block CPT code: 73883, 94732-32, 38604 PREPROCEDURE DIAGNOSIS: POSTPROCEDURE DIAGNOSIS: same ANESTHESIA: local PROCEDURE REPORT: The risks and benefits of the procedure were explained to the patient and all questions were answered. The patient gave consent to proceed with the procedure. A 500 mL fluid bolus was given over a period of 31 minutes. The patient was placed prone on the fluoroscopy table with a pillow under the epigastium. The skin was sterilely prepped and draped. The left lateral cephalad border of the L2 vertebral body was identified using an oblique fluoroscopic view. The overlying skin and subcutaneous tissue were infiltrated with lidocaine 1%. A 22G 127 mm spinal needle was advanced to the lateral cephalad border of the body of L2. The needle was then withdrawn and redirected laterally. It was advanced to slide at the lateral surface of the body of L2 under fluoroscopic guidance until it was just anterior to the anterior margin of L2. The position of the needle tip was confirmed with the injection of 1 mL of Isovue-M 200 contrast medium under continuous fluoroscopy. After negative aspiration, 20 mL of bupivacaine 0.25% was injected incrementally. The needle was withdrawn intact. The patient tolerated the procedure well with no complications noted SIGNATURE: Mao Hickman MD PATIENT NAME: Tasha De DATE: November 16, 2022 TIME: 2:15 PM documented in this encounter [facility] 11-09-2022 Miscellaneous Notes The following approved medication requests have been transmitted electronically. Requested Prescriptions Pending Prescriptions Disp Refills diazePAM (VALIUM) 5 mg tablet 1 tablet 0 Sig: Take 1 tablet by mouth once daily for 1 day. Take one 2 hours prior to procedure Ronald Nolan PA-C Requested Prescriptions Pending Prescriptions Disp Refills diazePAM (VALIUM) 5 mg tablet 1 tablet 0 Sig: Take 1 tablet by mouth once daily for 1 day. Take one 2 hours prior to procedure Please review and advise. Hina Key RN documented in this encounter [facility] 11-09-2022 Nurse Note 0935-500cc LR bolus completely infused. IV d/c'd with catheter intact. Sterile bandaid applied to IV site. Patient tolerated well. 0904-IV initiated to right FA, #20, angiocath on first attempt with blood return. Secured with opsite dressing and tape. 500cc Lactated Ringers bolus infusing prior to procedure. Patient tolerated well. documented in this encounter [facility] 11-09-2022 Surgical operatio n note Summary: Left LSB#2 [facility] G57.72 Lumbar Sympathetic Block PROCEDURE: Left lumbar sympathetic block CPT code: 02418, 42612-57, 86309 PREPROCEDURE DIAGNOSIS: G57.72 POSTPROCEDURE DIAGNOSIS: same ANESTHESIA: local PROCEDURE REPORT: The risks and benefits of the procedure were explained to the patient and all questions were answered. The patient gave consent to proceed with the procedure. A 500 mL fluid bolus was given over a period of 31 minutes. The patient was placed prone on the fluoroscopy table with a pillow under the epigastium. The skin was sterilely prepped and draped. The left lateral cephalad border of the L2 vertebral body was identified using an oblique fluoroscopic view. The overlying skin and subcutaneous tissue were infiltrated with lidocaine 1%. A 22G 127 mm spinal needle was advanced to the lateral cephalad border of the body of L2. The needle was then withdrawn and redirected laterally. It was advanced to slide at the lateral surface of the body of L2 under fluoroscopic guidance until it was just anterior to the anterior margin of L2. The position of the needle tip was confirmed with the injection of 1 mL of Isovue-M 200 contrast medium under continuous fluoroscopy. After negative aspiration, 20 mL of bupivacaine 0.25% was injected incrementally. The needle was withdrawn intact. The patient tolerated the procedure well with no complications noted SIGNATURE: Mao Hickman MD PATIENT NAME: Tasha De DATE: November 09, 2022 TIME: 9:00 AM documented in this encounter [facility] 11-09-2022 [facility] Discharg e instructions Mao Hickman MD - 11/09/2022 9:01 AM EST Post Lumbar Sympathetic Block: After the procedure, you may experience the sensation of warmth or tingling in the leg or foot. You may experience dizziness due to a decrease in your blood pressure. Lying down helps to relieve this. Maintain adequate fluid intake. documented in this encounter [facility] 11-04-2022 [facility] Discharg e instructions Mao Hickman MD - 11/04/2022 9:55 AM EST Post-procedure instructions: 1. Rest today. You may feel drowsy the rest of the day. Avoid excessive bending, walking, and lifting. Resume your normal activities tomorrow. 2. Remove Band-Aid tomorrow. 3. Resume your current medications. If you are on any blood thinners or any other medications you were told to stop before your procedure, you may continue those tomorrow. 4. If you received oral sedation, no driving or alcohol for 24 hours. 5. You may shower, but no tub baths for 24 hours. 6. If you are diabetic, check your sugar for the next 5 days as the steroid may elevate you sugar. Call your medical doctor if you sugar is elevated. Before your next injection: (also refer to your pre-procedure checklist given to you when you scheduled your first injection) 1. Stop all blood thinners as you were directed. If you are unsure, please call our office for clarification. 2. If you were prescribed Valium prior to the procedure or if you are to receive oral sedation, you may eat as you normally would, but you do need a truck driver. Additional Instructions: documented in this encounter [facility] 11-04-2022 Surgical operatio n note Summary: Right L2-5 MB RFA Lumbar Medial Branch Nerve Radiofrequency Ablation PROCEDURE: Right L2-5 medial branch nerve radiofrequency ablation CPT code: 92284, 02747 x2 PREPROCEDURE DIAGNOSIS: Lumbar spondylosis POSTPROCEDURE DIAGNOSIS: same ANESTHESIA: local PROCEDURE REPORT: The risks and benefits of the procedure were explained to the patient and all questions were answered. The patient gave consent to proceed with the procedure. The patient was placed prone on the fluoroscopy table with a pillow under the lower abdomen and upper pelvis. The skin was sterilely prepped and draped. The superior margin of the right L3 transverse process was identified using an oblique fluoroscopic view. The overlying skin and subcutaneous tissue were infiltrated with lidocaine 1%. Under fluoroscopic guidance, an 18G 100 mm 10 mm curved active tip cannula was advanced towards the junction of the transverse process and the superior articular process. The needle was then walked over the superior aspect of the transverse process and advanced by around a millimeter. AP and lateral views were obtained to confirm the needle position. Sensory and motor stimulation were performed which elicited deep local back discomfort but no evidence of motor stimulation in the gluteal muscles or extremities. After negative aspiration, 1 mL of bupivacaine 0.5% was then injected though the cannula. The radiofrequency probe was inserted through the cannula and denervation was performed at 80 C for 90 sec. The needle and radiofrequency probe were withdrawn intact. A similar procedure was performed at L4, L5, and sacral ala.. The patient tolerated the procedure well with no complications noted. SIGNATURE: Mao Hickman MD PATIENT NAME: Tasha De DATE: November 04, 2022 TIME: 9:54 AM documented in this encounter [facility] 11-04-2022 Miscellaneous Notes The following approved medication requests have been transmitted electronically. Requested Prescriptions Pending Prescriptions Disp Refills diazePAM (VALIUM) 10 mg tablet 1 tablet 0 Sig: Take 1 tablet by mouth as directed for 1 day. Take 1 tablet 2 hours before procedure Ronald Nolan PA-C Patient phones requesting refills as follows: Requested Prescriptions Pending Prescriptions Disp Refills diazePAM (VALIUM) 10 mg tablet 1 tablet 0 Sig: Take 1 tablet by mouth as directed for 1 day. Take 1 tablet 2 hours before procedure Please review and advise. Hina Key RN documented in this encounter [facility] 11-02-2022 Nurse Note 0832-additional 500cc LR bolus infusing at w/o rate per Dr. Hickman. Will monitor patient for 20 minutes before D/C. 0847-500cc bolused infused. IV d/c'd with cath intact. Sterile dressing applied. IV initiated to left FA #20 angiocath on first attempt. 500cc LR bolus infusing. 0805-500cc LR bolus infused. IV at KO rate. documented in this encounter [facility] 11-02-2022 Hospital Discharg e instructions Mao Hickman MD - 11/02/2022 8:01 AM EST Post Lumbar Sympathetic Block: After the procedure, you may experience the sensation of warmth or tingling in the leg or foot. You may experience dizziness due to a decrease in your blood pressure. Lying down helps to relieve this. Maintain adequate fluid intake. documented in this encounter [facility] 11-02-2022 Surgical operatio n note Summary: Left LSB#1 [facility] G57.72 Lumbar Sympathetic Block PROCEDURE: Left lumbar sympathetic block CPT code: 21964, 12443-72, 01005 PREPROCEDURE DIAGNOSIS: G57.72 POSTPROCEDURE DIAGNOSIS: same ANESTHESIA: local PROCEDURE REPORT: The risks and benefits of the procedure were explained to the patient and all questions were answered. The patient gave consent to proceed with the procedure. A 500 mL fluid bolus was given over a period of 31 minutes. The patient was placed prone on the fluoroscopy table with a pillow under the epigastium. The skin was sterilely prepped and draped. The left lateral cephalad border of the L2 vertebral body was identified using an oblique fluoroscopic view. The overlying skin and subcutaneous tissue were infiltrated with lidocaine 1%. A 22G 127 mm spinal needle was advanced to the lateral cephalad border of the body of L2. The needle was then withdrawn and redirected laterally. It was advanced to slide at the lateral surface of the body of L2 under fluoroscopic guidance until it was just anterior to the anterior margin of L2. The position of the needle tip was confirmed with the injection of 1 mL of Isovue-M 200 contrast medium under continuous fluoroscopy. After negative aspiration, 20 mL of bupivacaine 0.25% was injected incrementally. The needle was withdrawn intact. The patient tolerated the procedure well with no complications noted SIGNATURE: Mao Hickman MD PATIENT NAME: Tasha De DATE: November 02, 2022 TIME: 7:58 AM documented in this encounter [facility] 10-20-2022 Miscellaneous Notes Message left on Id'd VM @ 10am asking her to call - direct number given- to discuss if keeping procedure appt tomorrow and 2/14/23, per Dr. Hickman's request too she has missed too many procedures already , also concerned about multiple valium scripts for pre procedure, explained that only the 10/18/22 valium was PU, per [place] (none since 05/2022). No return calls yet, rest of procedure times and dates cancelled until hearing from pt and after discussion. documented in this encounter [facility] 10-06-2022 Miscellaneous Notes The following approved medication requests have been transmitted electronically. Requested Prescriptions Pending Prescriptions Disp Refills zonisamide (ZONEGRAN) 100 mg capsule 120 capsule 3 Sig: Take 4 capsules by mouth once daily. Taking over prescribing CTP [id number] tiZANidine (ZANAFLEX) 4 mg tablet 60 tablet 3 Sig: Take 0.5-1 tablets by mouth twice daily as needed. DULoxetine (CYMBALTA) 60 mg capsule 30 capsule 3 Sig: Take 1 capsule by mouth once daily. Ronald Nolan PA-C Patient phones requesting refills as follows: Requested Prescriptions Pending Prescriptions Disp Refills zonisamide (ZONEGRAN) 100 mg capsule 120 capsule 3 Sig: Take 4 capsules by mouth once daily. Taking over prescribing CTP [id number] tiZANidine (ZANAFLEX) 4 mg tablet 60 tablet 3 Sig: Take 0.5-1 tablets by mouth twice daily as needed. DULoxetine (CYMBALTA) 60 mg capsule 30 capsule 3 Sig: Take 1 capsule by mouth once daily. Please review and advise. Hina Key RN documented in this encounter [facility] 09-17-2022 Note HNO ID: [id number] Author: Tasha Tsai APRN.CLINICAL SCIENCES PROFESSOR Service: ? Author Type: Nurse Practitioner Type: Progress Notes Filed: 09/17/2022 5:49 PM Note Text: Subjective The history is provided by the patient. No speech language pathologist travel was used. HPI Tasha De is a 46 year old female who presents today for CC of infection of 4th toe of left foot, started about a week ago. She has abrasive area, denies any trauma or injury. She has been using peroxide without relief. She also wanted me to check for lice, had white flecks in hair and itching. No treatment done. BP 120/82 Pulse 84 Temp 36.4 ?C (97.5 ?F) (Tympanic) Resp 18 Wt 54.9 kg (121 lb) LMP 07/01/2017 SpO2 99% BMI 20.93 kg/m? 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) 03/07/2014 Actinic Damage//Sun-Damaged Skin 04/24/2010 Anxiety 03/30/2019 Atypical nevus of flank 05/03/2014 Benign hypertensive heart disease without heart failure Candidiasis of skin and nails 12/15/2007 Chronic constipation 06/28/2019 Chronic insomnia 06/28/2019 Congenital pigmented melanocytic nevus 04/24/2010 CRPS (complex regional pain syndrome) 03/27/2014 DDD (degenerative disc disease), lumbar 04/09/2008 Degeneration of lumbar or lumbosacral intervertebral disc 04/09/2008 Dermatofibroma 03/07/2014 DVT (deep venous thrombosis) ([facility]) after foot surgery 2000 Dysthymic disorder Depression (non-psychotic)-POST DEPRESSION 1998 Edema 02/10/2010 Embolism and thrombosis of unspecified site 2000 LT LEG Encounter for dietary counseling and surveillance 04/10/2013 Esophageal reflux 08/02/2006 Esophagitis, unspecified Essential hypertension, benign 11/23/2005 Generalized anxiety disorder 1999 Anxiety, Generalized History of gastric bypass 08/15/2013 History of gastric bypass 09/17/2013 History of irregular menstrual bleeding 12/03/2013 Hyperlipidemia LDL goal < 100 12/19/2012 Resolved since gastric bypass Hyperpigmentation of skin: under eyelids 02/22/2012 Hypertension Hypothyroid 09/19/2012 Irritable bowel syndrome 1997 Lumbago Medication overuse headache 08/22/2014 Melanocytic nevi of trunk 03/07/2014 Melanocytic Nevus of Trunk: Back 04/24/2010 Milial cyst 03/07/2014 Moderate episode of recurrent major depressive disorder (HCC) 04/09/2020 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 05/03/2014 Neuralgia, neuritis, and radiculitis, unspecified 11/29/2012 Obesity 07/15/2010 SAMARIA on CPAP Overactive bladder 10/02/2014 Porokeratosis 04/24/2010 Postphlebetic syndrome with other complication 12/28/2007 Postsurgical malabsorption, not elsewhere classified 11/25/2017 PTSD (post-traumatic stress disorder) 03/31/2020 Reflex sympathetic dystrophy of the lower limb 1999 LT. LEG3 Restless legs syndrome 01/06/2011 Rosacea 04/24/2010 Sebaceous hyperplasia 03/07/2014 Skin tag(s) 04/24/2010 Solar Lentigines 04/24/2010 Strain of right knee and leg 05/18/2016 Surgical Scar: skin of upper lip 10/14/2010 Tarsal tunnel syndrome left Telangiectasias 04/24/2010 Tibial tendonitis, posterior, left Tinea corporis 08/25/2010 Type II or unspecified type diabetes mellitus without mention of complication, not stated as uncontrolled 09/18/2012 RESOLVED 09/2013 AFTER GASTRIC BYPASS Unspecified sleep apnea 2004 Sleep apnea Venous insufficiency of both lower extremities 10/03/2019 Viral warts, unspecified 04/24/2010 Vitamin D deficiency 01/20/2011 Xerosis cutis 08/25/2010 I have confirmed and edited as necessary, the [facility] Review of Systems Constitutional: Negative for chills and fever. Musculoskeletal: Negative for joint pain and myalgias. Skin: Negative for itching and rash. Redness swelling of 4th toe, left foot All other systems reviewed and are negative. Objective Physical Exam Vitals and nursing note reviewed. Pulmonary: Effort: Pulmonary effort is normal. Musculoskeletal: Feet: Feet: Comments: Redness and swelling marked area, exoriated, no purulent drainage Skin: General: Skin is warm and dry. Findings: Erythema present. Neurological: Mental Status: She is alert and oriented to person, place, and time. Psychiatric: Mood and Affect: Affect normal. Hair inspection done there were no white flecks/nits noted. ASSESSMENT/PLAN: 1. Skin infection - ICD9: 686.9, ICD10: L08.9 - Begin treatment with Cephalaxin (Keflex) - No lymphangetic streaking, this was defined for patient to watch for and to seek medical care immediately if appears - Wound care discussed see patient instruction. Diagnosis and treatment plan were discussed and questions were answered to the patient's satisfaction. Pt acknowledged understanding of concepts and follow up plan. Specific s (more content not included)... [facility] 09-17-2022 Instructions Tasha Tsai APRN.CNP - 09/17/2022 5:23 PM EST Wound Care - Keep the area clean and dry -Clean with soap and water . Apply mupirocin ointment 2 - 3 times a day. -Tylenol or Ibuprofen for discomfort Keflex as ordered -Call your primary care physician's office for a follow up appointment if no improvement documented in this encounter [facility] 09-17-2022 History of Presen t illness Narrative Images from the original note were not included. Subjective The history is provided by the patient. No speech language pathologist travel was used. HPI Tasha De is a 46 year old female who presents today for CC of infection of 4th toe of left foot, started about a week ago. She has abrasive area, denies any trauma or injury. She has been using peroxide without relief. She also wanted me to check for lice, had white flecks in hair and itching. No treatment done. BP 120/82 Pulse 84 Temp 36.4 C (97.5 F) (Tympanic) Resp 18 Wt 54.9 kg (121 lb) LMP 07/01/2017 SpO2 99% BMI 20.93 kg/m 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) 03/07/2014 Actinic Damage//Sun-Damaged Skin 04/24/2010 Anxiety 03/30/2019 Atypical nevus of flank 05/03/2014 Benign hypertensive heart disease without heart failure Candidiasis of skin and nails 12/15/2007 Chronic constipation 06/28/2019 Chronic insomnia 06/28/2019 Congenital pigmented melanocytic nevus 04/24/2010 CRPS (complex regional pain syndrome) 03/27/2014 DDD (degenerative disc disease), lumbar 04/09/2008 Degeneration of lumbar or lumbosacral intervertebral disc 04/09/2008 Dermatofibroma 03/07/2014 DVT (deep venous thrombosis) ([facility]) after foot surgery 2000 Dysthymic disorder 1997&1998 Depression (non-psychotic)-POST DEPRESSION 1998 Edema 02/10/2010 Embolism and thrombosis of unspecified site 2001 LT LEG Encounter for dietary counseling and surveillance 04/10/2013 Esophageal reflux 08/02/2006 Esophagitis, unspecified Essential hypertension, benign 11/23/2005 Generalized anxiety disorder 1999 Anxiety, Generalized History of gastric bypass 08/15/2013 History of gastric bypass 09/17/2013 History of irregular menstrual bleeding 12/03/2013 Hyperlipidemia LDL goal < 100 12/19/2012 Resolved since gastric bypass Hyperpigmentation of skin: under eyelids 02/22/2012 Hypertension Hypothyroid 09/19/2012 Irritable bowel syndrome 1997 Lumbago Medication overuse headache 08/22/2014 Melanocytic nevi of trunk 03/07/2014 Melanocytic Nevus of Trunk: Back 04/24/2010 Milial cyst 03/07/2014 Moderate episode of recurrent major depressive disorder (HCC) 04/09/2020 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 05/03/2014 Neuralgia, neuritis, and radiculitis, unspecified 11/29/2012 Obesity 07/15/2010 SAMARIA on CPAP Overactive bladder 10/02/2014 Porokeratosis 04/24/2010 Postphlebetic syndrome with other complication 12/28/2007 Postsurgical malabsorption, not elsewhere classified 11/25/2017 PTSD (post-traumatic stress disorder) 03/31/2020 Reflex sympathetic dystrophy of the lower limb 1999 LT. LEG3 Restless legs syndrome 01/06/2011 Rosacea 04/24/2010 Sebaceous hyperplasia 03/07/2014 Skin tag(s) 04/24/2010 Solar Lentigines 04/24/2010 Strain of right knee and leg 05/18/2016 Surgical Scar: skin of upper lip 10/14/2010 Tarsal tunnel syndrome left Telangiectasias 04/24/2010 Tibial tendonitis, posterior, left Tinea corporis 08/25/2010 Type II or unspecified type diabetes mellitus without mention of complication, not stated as uncontrolled 09/18/2012 RESOLVED 09/2013 AFTER GASTRIC BYPASS Unspecified sleep apnea 2004 Sleep apnea Venous insufficiency of both lower extremities 10/03/2019 Viral warts, unspecified 04/24/2010 Vitamin D deficiency 01/20/2011 Xerosis cutis 08/25/2010 I have confirmed and edited as necessary, the [facility] Review of Systems Constitutional: Negative for chills and fever. Musculoskeletal: Negative for joint pain and myalgias. Skin: Negative for itching and rash. Redness swelling of 4th toe, left foot All other systems reviewed and are negative. Objective Physical Exam Vitals and nursing note reviewed. Pulmonary: Effort: Pulmonary effort is normal. Musculoskeletal: Feet: Feet: Comments: Redness and swelling marked area, exoriated, no purulent drainage Skin: General: Skin is warm and dry. Findings: Erythema present. Neurological: Mental Status: She is alert and oriented to person, place, and time. Psychiatric: Mood and Affect: Affect normal. Hair inspection done there were no white flecks/nits noted. ASSESSMENT/PLAN: 1. Skin infection - ICD9: 686.9, ICD10: L08.9 - Begin treatment with Cephalaxin (Keflex) - No lymphangetic streaking, this was defined for patient to watch for and to seek medical care immediately if appears - Wound care discussed see patient instruction. Diagnosis and treatment plan were discussed and questions were answered to the patient's satisfaction. Pt acknowledged understanding of concepts and follow up plan. Specific signs and symptoms that would indicate the need for higher level of care were discussed in detail warranting prompt ER evaluation. Tasha Tsai APRN.CNP documented in this encounter [facility] 09-02-2022 Miscellaneous Notes Patient has been identified by name and date of : Yes Last office visit in this department: 08/26/2021 RX INSTRUCTIONS: Patient aware RX will be sent to pharmacy. No need to notify patient. Patient phones requesting refills as follows: Requested Prescriptions Pending Prescriptions Disp Refills omeprazole (PRILOSEC) 40 mg capsule 30 capsule 0 Sig: Take 1 capsule by mouth once daily. Please review and advise. Smiley Guevara documented in this encounter [facility] 08-27-2022 Note HNO ID: [id number] Author: Dudley Trejo MD Service: ? Author Type: Physician Type: Progress Notes Filed: 08/27/2022 2:08 PM Note Text: Doctor Of Osteopathy offered: Patient declines. Tasha De is a 46 year old female who presents for problem visit - dyspareunia. HPI: Add on visit for pain with intercourse on 2 occasions over last 1 month. She states the pain feels as if there is a misplaced tampon. She also notices vaginal tissue that does not appear normal to her when compared to pictures online. She states it looks like her hymen has split in half. She has pain after intercourse where she feels as if her vagina is tightening. Currently for 8 years. No bleeding, discharge, itching, burning, change with urination and BM's. H/o hysterectomy for pain after Essure device. Ovaries remain. Was recently in the ER for Rotovirus. OB History T2 L2 SAB0 IAB1 Ectopic0 Multiple0 Live Births3 Director Telecommunications History LMP: 07/01/2017, Hysterectomy Age at Menarche: Age at First : Age at Menopause: Director Telecommunications History Comments: Sexual Activity: Yes; Male; Essure Contraception: Other PAST MEDICAL HISTORY Diagnosis Date Acne vulgaris: inflammatory grade III (chin and jawline face) 03/07/2014 Actinic Damage//Sun-Damaged Skin 04/24/2010 Anxiety 03/30/2019 Atypical nevus of flank 05/03/2014 Benign hypertensive heart disease without heart failure Candidiasis of skin and nails 12/15/2007 Chronic constipation 06/28/2019 Chronic insomnia 06/28/2019 Congenital pigmented melanocytic nevus 04/24/2010 CRPS (complex regional pain syndrome) 03/27/2014 DDD (degenerative disc disease), lumbar 04/09/2008 Degeneration of lumbar or lumbosacral intervertebral disc 04/09/2008 Dermatofibroma 03/07/2014 DVT (deep venous thrombosis) (HCC) after foot surgery 2000 Dysthymic disorder Depression (non-psychotic)-POST DEPRESSION 1998 Edema 02/10/2010 Embolism and thrombosis of unspecified site 2001 LT LEG Encounter for dietary counseling and surveillance 04/10/2013 Esophageal reflux 08/02/2006 Esophagitis, unspecified Essential hypertension, benign 11/23/2005 Generalized anxiety disorder 1999 Anxiety, Generalized History of gastric bypass 08/15/2013 History of gastric bypass 09/17/2013 History of irregular menstrual bleeding 12/03/2013 Hyperlipidemia LDL goal < 100 12/19/2012 Resolved since gastric bypass Hyperpigmentation of skin: under eyelids 02/22/2012 Hypertension Hypothyroid 09/19/2012 Irritable bowel syndrome 1997 Lumbago Medication overuse headache 08/22/2014 Melanocytic nevi of trunk 03/07/2014 Melanocytic Nevus of Trunk: Back 04/24/2010 Milial cyst 03/07/2014 Moderate episode of recurrent major depressive disorder (HCC) 04/09/2020 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 05/03/2014 Neuralgia, neuritis, and radiculitis, unspecified 11/29/2012 Obesity 07/15/2010 SAMARIA on CPAP Overactive bladder 10/02/2014 Porokeratosis 04/24/2010 Postphlebetic syndrome with other complication 12/28/2007 Postsurgical malabsorption, not elsewhere classified 11/25/2017 PTSD (post-traumatic stress disorder) 03/31/2020 Reflex sympathetic dystrophy of the lower limb 1999 LT. LEG3 Restless legs syndrome 01/06/2011 Rosacea 04/24/2010 Sebaceous hyperplasia 03/07/2014 Skin tag(s) 04/24/2010 Solar Lentigines 04/24/2010 Strain of right knee and leg 05/18/2016 Surgical Scar: skin of upper lip 10/14/2010 Tarsal tunnel syndrome left Telangiectasias 04/24/2010 Tibial tendonitis, posterior, left Tinea corporis 08/25/2010 Type II or unspecified type diabetes mellitus without mention of complication, not stated as uncontrolled 09/18/2012 RESOLVED 09/2013 AFTER GASTRIC BYPASS Unspecified sleep apnea 2004 Sleep apnea Venous insufficiency of both lower extremities 10/03/2019 Viral warts, unspecified 04/24/2010 Vitamin D deficiency 01/20/2011 Xerosis cutis 08/25/2010 PAST SURGICAL HISTORY Procedure Laterality Date CHOLECYSTECTOMY 2003 laparoscopic ESOPHAGOGASTRODUODENOSCOPY TRANSORAL DIAGNOSTIC 05/17/2007 EGD ESSURE 2008 [place] and HSG showed no open tubes EXCISE EXCESS SKIN TISSUE,ABDOMEN 06/23/2020 GASTRIC BYPASS HX 08/15/2013 Lap. Lexis en Y, EGD, liver biopsy HYSTERECTOMY 05/26/2017 [facility] [place] [facility] INSERTION/CONSULT 08/15/2013 PAST SURGICAL HISTORY OF 2000 foot surgery SUCT FAROOQ LIPECTOMY,LOW EXTREM Right 09/02/2020 right thigh SUCT FAROOQ LIPECTOMY,LOW EXTREM Left 11/04/2020 left thigh FAMILY HISTORY Problem Relation Age of Onset Heart Mother ASHD Hypertension Mother Psychiatry Father MANIC DEPRESSIVE SCHIZOPHRIENA Coronary Artery Disease Father Cancer Maternal Grandmother 2 TYPES Diabetes Maternal Grandfather Hypertension Brother other (schizophrenia) Brother Social History Tobacco Use Smoking status: Never Smokeless tobacco: Never Tobacco comments: vapes Substance Use Topics [place] (more content not included)... [facility] 08-27-2022 History of Presen t illness Narrative Doctor Of Osteopathy offered: Patient declines. Tasha De is a 46 year old female who presents for problem visit - dyspareunia. HPI: Add on visit for pain with intercourse on 2 occasions over last 1 month. She states the pain feels as if there is a misplaced tampon. She also notices vaginal tissue that does not appear normal to her when compared to pictures online. She states it looks like her hymen has split in half. She has pain after intercourse where she feels as if her vagina is tightening. Currently for 8 years. No bleeding, discharge, itching, burning, change with urination and BM's. H/o hysterectomy for pain after Essure device. Ovaries remain. Was recently in the ER for Rotovirus. OB History T2 L2 SAB0 IAB1 Ectopic0 Multiple0 Live Births3 Director Telecommunications History LMP: 07/01/2017, Hysterectomy Age at Menarche: Age at First : Age at Menopause: Director Telecommunications History Comments: Sexual Activity: Yes; Male; Essure Contraception: Other PAST MEDICAL HISTORY Diagnosis Date Acne vulgaris: inflammatory grade III (chin and jawline face) 03/07/2014 Actinic Damage//Sun-Damaged Skin 04/24/2010 Anxiety 03/30/2019 Atypical nevus of flank 05/03/2014 Benign hypertensive heart disease without heart failure Candidiasis of skin and nails 12/15/2007 Chronic constipation 06/28/2019 Chronic insomnia 06/28/2019 Congenital pigmented melanocytic nevus 04/24/2010 CRPS (complex regional pain syndrome) 03/27/2014 DDD (degenerative disc disease), lumbar 04/09/2008 Degeneration of lumbar or lumbosacral intervertebral disc 04/09/2008 Dermatofibroma 03/07/2014 DVT (deep venous thrombosis) ([facility]) after foot surgery 2001 Dysthymic disorder 1997&1998 Depression (non-psychotic)-POST DEPRESSION 1998 Edema 02/10/2010 Embolism and thrombosis of unspecified site 2001 LT LEG Encounter for dietary counseling and surveillance 04/10/2013 Esophageal reflux 08/02/2006 Esophagitis, unspecified Essential hypertension, benign 11/23/2005 Generalized anxiety disorder 1999 Anxiety, Generalized History of gastric bypass 08/15/2013 History of gastric bypass 09/17/2013 History of irregular menstrual bleeding 12/03/2013 Hyperlipidemia LDL goal < 100 12/19/2012 Resolved since gastric bypass Hyperpigmentation of skin: under eyelids 02/22/2012 Hypertension Hypothyroid 09/19/2012 Irritable bowel syndrome 1997 Lumbago Medication overuse headache 08/22/2014 Melanocytic nevi of trunk 03/07/2014 Melanocytic Nevus of Trunk: Back 04/24/2010 Milial cyst 03/07/2014 Moderate episode of recurrent major depressive disorder (HCC) 04/09/2020 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 05/03/2014 Neuralgia, neuritis, and radiculitis, unspecified 11/29/2012 Obesity 07/15/2010 SAMARIA on CPAP Overactive bladder 10/02/2014 Porokeratosis 04/24/2010 Postphlebetic syndrome with other complication 12/28/2007 Postsurgical malabsorption, not elsewhere classified 11/25/2017 PTSD (post-traumatic stress disorder) 03/31/2020 Reflex sympathetic dystrophy of the lower limb 1999 LT. LEG3 Restless legs syndrome 01/06/2011 Rosacea 04/24/2010 Sebaceous hyperplasia 03/07/2014 Skin tag(s) 04/24/2010 Solar Lentigines 04/24/2010 Strain of right knee and leg 05/18/2016 Surgical Scar: skin of upper lip 10/14/2010 Tarsal tunnel syndrome left Telangiectasias 04/24/2010 Tibial tendonitis, posterior, left Tinea corporis 08/25/2010 Type II or unspecified type diabetes mellitus without mention of complication, not stated as uncontrolled 09/18/2012 RESOLVED 09/2013 AFTER GASTRIC BYPASS Unspecified sleep apnea 2004 Sleep apnea Venous insufficiency of both lower extremities 10/03/2019 Viral warts, unspecified 04/24/2010 Vitamin D deficiency 01/20/2011 Xerosis cutis 08/25/2010 PAST SURGICAL HISTORY Procedure Laterality Date CHOLECYSTECTOMY 2002 laparoscopic ESOPHAGOGASTRODUODENOSCOPY TRANSORAL DIAGNOSTIC 05/17/2007 EGD ESSURE 2007 [place] and HSG showed no open tubes EXCISE EXCESS SKIN TISSUE,ABDOMEN 06/23/2020 GASTRIC BYPASS HX 08/15/2013 Lap. Lexis en Y, EGD, liver biopsy HYSTERECTOMY 05/26/2017 [facility] [place] MIDLINE INSERTION/CONSULT 08/15/2013 PAST SURGICAL HISTORY OF 2000 foot surgery SUCT FAROOQ LIPECTOMY,LOW EXTREM Right 09/02/2020 right thigh SUCT FAROOQ LIPECTOMY,LOW EXTREM Left 11/04/2020 left thigh FAMILY HISTORY Problem Relation Age of Onset Heart Mother ASHD Hypertension Mother Psychiatry Father MANIC DEPRESSIVE SCHIZOPHRIENA Coronary Artery Disease Father Cancer Maternal Grandmother 2 TYPES Diabetes Maternal Grandfather Hypertension Brother other (schizophrenia) Brother Social History Tobacco Use Smoking status: Never Smokeless tobacco: Never Tobacco comments: vapes Substance Use Topics Alcohol use: No Drug use: No Current Outpatient Medications Medication Sig cetirizine (ZYRTEC) 10 mg tablet Take 1 tablet by mouth once daily. fluticasone (FLONASE) 50 mcg/actuation nasal spray Use 2 Sprays in each nostril once daily. Rinse mouth after use. omeprazole (PRILOSEC) 40 mg capsule Take 1 capsule by mouth once daily. zonisamide (ZONEGRAN) 100 mg capsule Take 4 capsules by mouth once daily. Taking over prescribing CTP [id number] DULoxetine (CYMBALTA) 60 mg capsule Take 1 capsule by mouth once daily. traZODone (DESYREL) 100 mg tablet Take 1 tablet by mouth daily at bedtime. levothyroxine (SYNTHROID) 50 mcg tablet Take 1 tablet by mouth once daily. docusate sodium (COLACE) 100 mg capsule Colace 100 mg capsule ferrous sulfate 325 mg (65 mg iron) tablet ferrous sulfate 325 mg (65 mg iron) tablet vit-iron fumarate-fa 28 mg iron- 800 mcg tab 28 mg iron- 800 mcg tablet nystatin (NYAMYC) powder APPLY TO AFFECTED AREA(S) THREE TIMES A DAY cholecalciferol, vitamin D3, (VITAMIN D3) 100 mcg (4,000 unit) cap Take 1 capsule by mouth once daily. Magnesium 250 mg tab Take 250 mg by mouth once daily. biotin-keratin 10,000-100 mcg-mg tab Take 10,000 mg by mouth once daily. cyanocobalamin (VITAMIN B-12) 500 mcg tablet Take 1 tablet by mouth once daily. Coenzyme Q10 200 mg cap Take 200 mg by mouth once daily. polyethylene glycol 3350 (MIRALAX, GLYCOLAX) 17 gram/dose powder Take 17 g by mouth once daily. tiZANidine (ZANAFLEX) 4 mg tablet rizatriptan (MAXALT) 10 mg tablet Take 1 tablet by mouth as needed. May repeat in 2 hours if needed COMPOUNDED PRESCRIPTION KNEE HIGH COMPRESSION STOCKINGS 30-40 MM. DX: EDEMA ascorbic acid, vitamin C, (VITAMIN C) 500 mg tablet Take 500 mg by mouth once daily. CALCIUM CITRATE/VITAMIN D3 (CALCIUM CITRATE + ORAL) Take by mouth. miconazole (MONISTAT 7) 2 % vaginal cream Use 1 Applicator vaginally daily at bedtime for 7 days. nystatin (MYCOSTATIN) cream Apply 1 application to affected area once daily for 14 days. triamcinolone acetonide (KENALOG) 0.1 % ointment Apply to affected area once daily for 14 days. QUEtiapine (SEROQUEL) 50 mg tablet Take 50 mg by mouth three times daily. (Patient not taking: Reported on 08/27/2022) ARIPiprazole (ABILIFY) 15 mg tablet Take 15 mg by mouth once daily. (Patient not taking: Reported on 08/27/2022) No current facility-administered medications for this visit. Allergies As of Date: 08/27/2022 Allergen Noted Reaction DOXYCYCLINE 06/23/2017 Other: See Comments EFFEXOR [VENLAFAXINE HCL] 04/22/2005 Intolerance HCTZ [OTHER] 04/22/2005 HYDROCHLOROTHIAZIDE 06/23/2017 Other: See Comments LIPITOR [ATORVASTATIN CALCIUM] 02/07/2013 Other: See Comments OXYBUTYNIN 06/28/2019 Mental Status Change PENICILLINS 04/22/2005 Rash PRAVASTATIN 01/17/2013 Other: See Comments SILICONE 10/19/2005 [id number]-[id number] REDUCTASE INHIBIT*04/18/2017 Intolerance and Other: See Comments TOPAMAX [TOPIRAMATE] 01/17/2013 Swelling ZOCOR [SIMVASTATIN] 03/27/2013 Other: See Comments ZOLOFT [SERTRALINE HCL] 04/22/2005 Intolerance Fully Assessed 08/27/2022 REVIEW OF SYSTEMS Abdomen: No abdominal pain, nausea, vomiting, diarrhea, or constipation. Bladder: No dysuria, gross hematuria, urinary frequency, urinary urgency, or incontinence. Expanded ROS: N/A Allergies and current medication updated:Yes EXAM: BP 124/80 Wt 120 lb 9.6 oz (54.7kg) LMP 07/01/2017 GENERAL: pleasant, female in no apparent distress HEENT: Normocephalic and atraumatic NECK: full range of motion DERMATOLOGY: Normal and without lesions CHEST: Normal inspiratory effort ABDOMEN: soft PELVIC: external genitalia mildly erythematous, normal Bartholin's glands, urethra, Safford's glands, no vulvar lesions, good vaginal support, thick white discharge present, normal appearing perineal body and perianal region BIMANUAL: no adnexal masses and non-tender NEURO: exam grossly non-focal EXTREMITIES: normal ASSESSMENT AND PLAN: Encounter Diagnosis ICD-10-CM 1. Yeast dermatitis B37.2 miconazole (MONISTAT 7) 2 % vaginal cream nystatin (MYCOSTATIN) cream triamcinolone acetonide (KENALOG) 0.1 % ointment 2. Vaginal discharge N89.8 3. Superficial dyspareunia N94.11 Dyspareunia likely secondary to yeast infection. Medications sent as noted above. Discussed to call next week if symptoms are not improving or if worsening. Recommend abstaining from intercourse until completes Monistat 7. Reassured about normal vaginal rugae and tissue on exam. RTO PRN and annual exams. Dudley Trejo DO Medical Decision Making: Problems: Low: Acute, uncomplicated illness or injury Data: Unique test(s) ordered: 2 Risk: Moderate: Drug management Medical Decision Making Level: 3 - Low documented in this encounter [facility] 08-24-2022 Instructions Ronald Nolan PA-C - 08/24/2022 1:22 PM EST The OARRS report has been reviewed and is consistent with the patients medical history and medication intake. The patient will continue with duloxetine, tizanidine, zonisamide, and Maxalt. She will continue using her TENS unit. She will continue with core strengthening and range of motion exercises. Avoid migraine triggers. Patient will be rescheduled for the right L2-5 medial branch radiofrequency ablation once it is approved. Follow-up in office in 6 months time. I discussed the patient with Dr. Hickman who agrees with my assessment and plan. All of the above is to improve functionality and quality of life. No evidence of drug abuse or diversion is seen at this time. documented in this encounter [facility] 08-24-2022 History of Presen t illness Narrative This note was created using [employer]. Subjective Tasha De is a 46 year old female. The patient primarily being seen for back pain Patient was last seen on: 06/30/22 At that time, the treatment plan was: see notes Current Meds: Cymbalta - last dose this am, Tizanidine - last pm Efficacy: help Side effects: tiredness with Tizanidine TENS unit: yes - use very rarely How often used: Benefit: Physical Therapy: no Last UDS: no narcotics Last injection: 07/13/22 - Left L2-5 RFA - states 95% relief OARRS reviewed At the present time, the patient reports benefit with her present analgesic therapy. She has issues with tiredness with the tizanidine. Since her previous visit, she went to the ER for stomach pain. She also had two teeth pulled and got hydrocodone for this. She is waiting on approval for the right side which was denied by the insurance. She had a hearing yesterday and is waiting on the results. INTAKE PAIN ASSESSMENT 08/17/2022 08/24/2022 Are you having pain associated with your visit today? Yes, Provider notified Yes, Provider notified Pain Scales Verbal (Numeric Rating or Visual Analog Scale) Verbal (Numeric Rating or Visual Analog Scale) Pain Level 8 7 Pain Location Ear-Right Back Description Aching;Sharp Dull;Aching Duration Amount of Time 1 - Duration Units Weeks Years Frequency Continuous Continuous Intervention/Comfort measure Medication Medication Pain Assessment - - PAST MEDICAL HISTORY Diagnosis Date Acne vulgaris: inflammatory grade III (chin and jawline face) 03/07/2014 Actinic Damage//Sun-Damaged Skin 04/24/2010 Anxiety 03/30/2019 Atypical nevus of flank 05/03/2014 Benign hypertensive heart disease without heart failure Candidiasis of skin and nails 12/15/2007 Chronic constipation 06/28/2019 Chronic insomnia 06/28/2019 Congenital pigmented melanocytic nevus 04/24/2010 CRPS (complex regional pain syndrome) 03/27/2014 DDD (degenerative disc disease), lumbar 04/09/2008 Degeneration of lumbar or lumbosacral intervertebral disc 04/09/2008 Dermatofibroma 03/07/2014 DVT (deep venous thrombosis) ([facility]) after foot surgery 2000 Dysthymic disorder 1997&1998 Depression (non-psychotic)-POST DEPRESSION 1998 Edema 02/10/2010 Embolism and thrombosis of unspecified site 2001 LT LEG Encounter for dietary counseling and surveillance 04/10/2013 Esophageal reflux 08/02/2006 Esophagitis, unspecified Essential hypertension, benign 11/23/2005 Generalized anxiety disorder 1999 Anxiety, Generalized History of gastric bypass 08/15/2013 History of gastric bypass 09/17/2013 History of irregular menstrual bleeding 12/03/2013 Hyperlipidemia LDL goal < 100 12/19/2012 Resolved since gastric bypass Hyperpigmentation of skin: under eyelids 02/22/2012 Hypertension Hypothyroid 09/19/2012 Irritable bowel syndrome 1997 Lumbago Medication overuse headache 08/22/2014 Melanocytic nevi of trunk 03/07/2014 Melanocytic Nevus of Trunk: Back 04/24/2010 Milial cyst 03/07/2014 Moderate episode of recurrent major depressive disorder (HCC) 04/09/2020 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 05/03/2014 Neuralgia, neuritis, and radiculitis, unspecified 11/29/2012 Obesity 07/15/2010 SAMARIA on CPAP Overactive bladder 10/02/2014 Porokeratosis 04/24/2010 Postphlebetic syndrome with other complication 12/28/2007 Postsurgical malabsorption, not elsewhere classified 11/25/2017 PTSD (post-traumatic stress disorder) 03/31/2020 Reflex sympathetic dystrophy of the lower limb 1999 LT. LEG3 Restless legs syndrome 01/06/2011 Rosacea 04/24/2010 Sebaceous hyperplasia 03/07/2014 Skin tag(s) 04/24/2010 Solar Lentigines 04/24/2010 Strain of right knee and leg 05/18/2016 Surgical Scar: skin of upper lip 10/14/2010 Tarsal tunnel syndrome left Telangiectasias 04/24/2010 Tibial tendonitis, posterior, left Tinea corporis 08/25/2010 Type II or unspecified type diabetes mellitus without mention of complication, not stated as uncontrolled 09/18/2012 RESOLVED 09/2013 AFTER GASTRIC BYPASS Unspecified sleep apnea 2004 Sleep apnea Venous insufficiency of both lower extremities 10/03/2019 Viral warts, unspecified 04/24/2010 Vitamin D deficiency 01/20/2011 Xerosis cutis 08/25/2010 PAST SURGICAL HISTORY Procedure Laterality Date CHOLECYSTECTOMY 2002 laparoscopic ESOPHAGOGASTRODUODENOSCOPY TRANSORAL DIAGNOSTIC 05/17/2007 EGD ESSURE 2007 [place] and [facility] showed no open tubes EXCISE EXCESS SKIN TISSUE,ABDOMEN 06/23/2020 GASTRIC BYPASS HX 08/15/2013 Lap. [facility]is en Y, EGD, liver biopsy HYSTERECTOMY 05/26/2017 [facility] [place] MIDLINE INSERTION/CONSULT 08/15/2013 PAST SURGICAL HISTORY OF 2000 foot surgery SUCT FAROOQ LIPECTOMY,LOW EXTREM Right 09/02/2020 right thigh SUCT FAROOQ LIPECTOMY,LOW EXTREM Left 11/04/2020 left thigh Social History Tobacco Use Smoking status: Never Smokeless tobacco: Never Tobacco comments: vapes Substance Use Topics Alcohol use: No Drug use: No HPI Review of Systems Constitutional: Negative for fever and unexpected weight change. Musculoskeletal: + back pain, joint pain/swelling, numbness, tingling, muscle cramps/weakness, stiffness, arthritis, restless legs, leg pain at night and leg pain with exertion Neurological: Positive for paresthesia Objective LMP 07/01/2017 Physical Exam Nursing note reviewed. Constitutional: Appearance: Normal appearance. She is well-developed and well-groomed. HENT: Head: Normocephalic and atraumatic. Right Ear: Hearing normal. Left Ear: Hearing normal. Eyes: Conjunctiva/sclera: Conjunctivae normal. Musculoskeletal: Comments: Normal posture, cervical ROM is intact. Neurological: Mental Status: She is alert and oriented to person, place, and time. Psychiatric: Attention and Perception: Attention and perception normal. Mood and Affect: Mood and affect normal. Speech: Speech normal. Behavior: Behavior normal. Behavior is cooperative. Thought Content: Thought content normal. Judgment: Judgment normal. Assessment and Plan ASSESSMENT/PLAN: 1. DDD (degenerative disc disease), lumbar - ICD9: 722.52, ICD10: M51.36 (primary diagnosis) The OARRS report has been reviewed and is consistent with the patients medical history and medication intake. The patient will continue with duloxetine, tizanidine, zonisamide, and Maxalt. She will continue using her TENS unit. She will continue with core strengthening and range of motion exercises. Avoid migraine triggers. Patient will be rescheduled for the right L2-5 medial branch radiofrequency ablation once it is approved. Follow-up in office in 6 months time. 2. Lumbar spondylosis - ICD9: 721.3, ICD10: M47.816 3. Sacroiliitis (HCC) - ICD9: 720.2, ICD10: M46.1 4. Idiopathic peripheral neuropathy - ICD9: 356.9, ICD10: G60.9 5. Osteoarthritis, generalized - ICD9: 715.00, ICD10: M15.9 6. Migraine without status migrainosus, not intractable, unspecified migraine type - ICD9: 346.90, ICD10: G43.909 7. Myofascial pain syndrome - ICD9: 729.1, ICD10: M79.18 Ronald Nolan PA-C documented in this encounter [facility] 08-17-2022 Note HNO ID: [id number] Author: Tasha Tsai APRN.CLINICAL SCIENCES PROFESSOR Service: ? Author Type: Nurse Practitioner Type: Progress Notes Filed: 08/17/2022 4:11 PM Note Text: Subjective The history is provided by the patient. No speech language pathologist travel was used. HPI Tasha De is a 46 year old female who presents today for CC of right ear pain that started over the past week. She also is having post nasal drainage. She has a h/o allergies, and has quit using medications as well as allergy shots. BP 132/84 Pulse 88 Temp 36.4 ?C (97.5 ?F) Resp 16 Wt 55.3 kg (122 lb) LMP 07/01/2017 SpO2 100% BMI 21.11 kg/m? 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) 03/07/2014 Actinic Damage//Sun-Damaged Skin 04/24/2010 Anxiety 03/30/2019 Atypical nevus of flank 05/03/2014 Benign hypertensive heart disease without heart failure Candidiasis of skin and nails 12/15/2007 Chronic constipation 06/28/2019 Chronic insomnia 06/28/2019 Congenital pigmented melanocytic nevus 04/24/2010 CRPS (complex regional pain syndrome) 03/27/2014 DDD (degenerative disc disease), lumbar 04/09/2008 Degeneration of lumbar or lumbosacral intervertebral disc 04/09/2008 Dermatofibroma 03/07/2014 DVT (deep venous thrombosis) ([facility]) after foot surgery 2000 Dysthymic disorder Depression (non-psychotic)-POST DEPRESSION 1998 Edema 02/10/2010 Embolism and thrombosis of unspecified site 2001 LT LEG Encounter for dietary counseling and surveillance 04/10/2013 Esophageal reflux 08/02/2006 Esophagitis, unspecified Essential hypertension, benign 11/23/2005 Generalized anxiety disorder 1999 Anxiety, Generalized History of gastric bypass 08/15/2013 History of gastric bypass 09/17/2013 History of irregular menstrual bleeding 12/03/2013 Hyperlipidemia LDL goal < 100 12/19/2012 Resolved since gastric bypass Hyperpigmentation of skin: under eyelids 02/22/2012 Hypertension Hypothyroid 09/19/2012 Irritable bowel syndrome 1997 Lumbago Medication overuse headache 08/22/2014 Melanocytic nevi of trunk 03/07/2014 Melanocytic Nevus of Trunk: Back 04/24/2010 Milial cyst 03/07/2014 Moderate episode of recurrent major depressive disorder (HCC) 04/09/2020 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 05/03/2014 Neuralgia, neuritis, and radiculitis, unspecified 11/29/2012 Obesity 07/15/2010 SAMARIA on CPAP Overactive bladder 10/02/2014 Porokeratosis 04/24/2010 Postphlebetic syndrome with other complication 12/28/2007 Postsurgical malabsorption, not elsewhere classified 11/25/2017 PTSD (post-traumatic stress disorder) 03/31/2020 Reflex sympathetic dystrophy of the lower limb 1999 LT. LEG3 Restless legs syndrome 01/06/2011 Rosacea 04/24/2010 Sebaceous hyperplasia 03/07/2014 Skin tag(s) 04/24/2010 Solar Lentigines 04/24/2010 Strain of right knee and leg 05/18/2016 Surgical Scar: skin of upper lip 10/14/2010 Tarsal tunnel syndrome left Telangiectasias 04/24/2010 Tibial tendonitis, posterior, left Tinea corporis 08/25/2010 Type II or unspecified type diabetes mellitus without mention of complication, not stated as uncontrolled 09/18/2012 RESOLVED 09/2013 AFTER GASTRIC BYPASS Unspecified sleep apnea 2004 Sleep apnea Venous insufficiency of both lower extremities 10/03/2019 Viral warts, unspecified 04/24/2010 Vitamin D deficiency 01/20/2011 Xerosis cutis 08/25/2010 I have confirmed and edited as necessary, the [facility] Review of Systems Constitutional: Negative for chills and fever. HENT: Positive for ear pain (right). Negative for congestion, sinus pain and sore throat. Post nasal drainage Respiratory: Negative for cough, sputum production, shortness of breath and wheezing. Cardiovascular: Negative for chest pain. Musculoskeletal: Negative for myalgias. Neurological: Negative for headaches. Objective Physical Exam Vitals and nursing note reviewed. HENT: Head: Normocephalic and atraumatic. Right Ear: Tympanic membrane, ear canal and external ear normal. Left Ear: Tympanic membrane, ear canal and external ear normal. Nose: No mucosal edema, congestion or rhinorrhea. Right Sinus: No maxillary sinus tenderness or frontal sinus tenderness. Left Sinus: No maxillary sinus tenderness or frontal sinus tenderness. Mouth/Throat: Pharynx: Uvula midline. No oropharyngeal exudate or posterior oropharyngeal erythema. Cardiovascular: Rate and Rhythm: Normal rate and regular rhythm. Heart sounds: Normal heart sounds. Pulmonary: Effort: Pulmonary effort is normal. Breath sounds: Normal breath sounds. Lymphadenopathy: Head: Right side of head: No submental, submandibular or tonsillar adenopathy. Left side of head: No submental, submandibular or tonsillar adeno (more content not included)... [facility] 08-17-2022 History of Presen t illness Narrative Subjective The history is provided by the patient. No speech language pathologist travel was used. HPI Tasha De is a 46 year old female who presents today for CC of right ear pain that started over the past week. She also is having post nasal drainage. She has a h/o allergies, and has quit using medications as well as allergy shots. BP 132/84 Pulse 88 Temp 36.4 C (97.5 F) Resp 16 Wt 55.3 kg (122 lb) LMP 07/01/2017 SpO2 100% BMI 21.11 kg/m 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) 03/07/2014 Actinic Damage//Sun-Damaged Skin 04/24/2010 Anxiety 03/30/2019 Atypical nevus of flank 05/03/2014 Benign hypertensive heart disease without heart failure Candidiasis of skin and nails 12/15/2007 Chronic constipation 06/28/2019 Chronic insomnia 06/28/2019 Congenital pigmented melanocytic nevus 04/24/2010 CRPS (complex regional pain syndrome) 03/27/2014 DDD (degenerative disc disease), lumbar 04/09/2008 Degeneration of lumbar or lumbosacral intervertebral disc 04/09/2008 Dermatofibroma 03/07/2014 DVT (deep venous thrombosis) ([facility]) after foot surgery 2001 Dysthymic disorder 1997&1998 Depression (non-psychotic)-POST DEPRESSION 1998 Edema 02/10/2010 Embolism and thrombosis of unspecified site 2001 LT LEG Encounter for dietary counseling and surveillance 04/10/2013 Esophageal reflux 08/02/2006 Esophagitis, unspecified Essential hypertension, benign 11/23/2005 Generalized anxiety disorder 1999 Anxiety, Generalized History of gastric bypass 08/15/2013 History of gastric bypass 09/17/2013 History of irregular menstrual bleeding 12/03/2013 Hyperlipidemia LDL goal < 100 12/19/2012 Resolved since gastric bypass Hyperpigmentation of skin: under eyelids 02/22/2012 Hypertension Hypothyroid 09/19/2012 Irritable bowel syndrome 1997 Lumbago Medication overuse headache 08/22/2014 Melanocytic nevi of trunk 03/07/2014 Melanocytic Nevus of Trunk: Back 04/24/2010 Milial cyst 03/07/2014 Moderate episode of recurrent major depressive disorder (HCC) 04/09/2020 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 05/03/2014 Neuralgia, neuritis, and radiculitis, unspecified 11/29/2012 Obesity 07/15/2010 SAMARIA on CPAP Overactive bladder 10/02/2014 Porokeratosis 04/24/2010 Postphlebetic syndrome with other complication 12/28/2007 Postsurgical malabsorption, not elsewhere classified 11/25/2017 PTSD (post-traumatic stress disorder) 03/31/2020 Reflex sympathetic dystrophy of the lower limb 1999 LT. LEG3 Restless legs syndrome 01/06/2011 Rosacea 04/24/2010 Sebaceous hyperplasia 03/07/2014 Skin tag(s) 04/24/2010 Solar Lentigines 04/24/2010 Strain of right knee and leg 05/18/2016 Surgical Scar: skin of upper lip 10/14/2010 Tarsal tunnel syndrome left Telangiectasias 04/24/2010 Tibial tendonitis, posterior, left Tinea corporis 08/25/2010 Type II or unspecified type diabetes mellitus without mention of complication, not stated as uncontrolled 09/18/2012 RESOLVED 09/2013 AFTER GASTRIC BYPASS Unspecified sleep apnea 2004 Sleep apnea Venous insufficiency of both lower extremities 10/03/2019 Viral warts, unspecified 04/24/2010 Vitamin D deficiency 01/20/2011 Xerosis cutis 08/25/2010 I have confirmed and edited as necessary, the [facility] Review of Systems Constitutional: Negative for chills and fever. HENT: Positive for ear pain (right). Negative for congestion, sinus pain and sore throat. Post nasal drainage Respiratory: Negative for cough, sputum production, shortness of breath and wheezing. Cardiovascular: Negative for chest pain. Musculoskeletal: Negative for myalgias. Neurological: Negative for headaches. Objective Physical Exam Vitals and nursing note reviewed. HENT: Head: Normocephalic and atraumatic. Right Ear: Tympanic membrane, ear canal and external ear normal. Left Ear: Tympanic membrane, ear canal and external ear normal. Nose: No mucosal edema, congestion or rhinorrhea. Right Sinus: No maxillary sinus tenderness or frontal sinus tenderness. Left Sinus: No maxillary sinus tenderness or frontal sinus tenderness. Mouth/Throat: Pharynx: Uvula midline. No oropharyngeal exudate or posterior oropharyngeal erythema. Cardiovascular: Rate and Rhythm: Normal rate and regular rhythm. Heart sounds: Normal heart sounds. Pulmonary: Effort: Pulmonary effort is normal. Breath sounds: Normal breath sounds. Lymphadenopathy: Head: Right side of head: No submental, submandibular or tonsillar adenopathy. Left side of head: No submental, submandibular or tonsillar adenopathy. Cervical: No cervical adenopathy. Skin: General: Skin is warm and dry. Neurological: Mental Status: She is alert. Psychiatric: Mood and Affect: Affect normal. ASSESSMENT/PLAN: 1. Eustachian tube dysfunction, right - ICD9: 381.81, ICD10: H69.81 Zyrtec, flonase as ordered See game author If develops worsening pain or fever needs rechecked. Follow up with ENT or PCP - CETIRIZINE 10 MG TABLET - FLUTICASONE PROPIONATE 50 MCG/ACTUATION NASAL SPRAY,SUSPENSION Diagnosis and treatment plan were discussed and questions were answered to the patient's satisfaction. Pt acknowledged understanding of concepts and follow up plan. Specific signs and symptoms that would indicate the need for higher level of care were discussed in detail warranting prompt ER evaluation. Tasha Tsai APRN.CLINICAL SCIENCES PROFESSOR documented in this encounter [facility] 07-13-2022 Hospital Discharg e instructions Mao Hickman MD - 07/13/2022 1:33 PM EDT Post-procedure instructions: 1. Rest today. You may feel drowsy the rest of the day. Avoid excessive bending, walking, and lifting. Resume your normal activities tomorrow. 2. Remove Band-Aid tomorrow. 3. Resume your current medications. If you are on any blood thinners or any other medications you were told to stop before your procedure, you may continue those tomorrow. 4. If you received oral sedation, no driving or alcohol for 24 hours. 5. You may shower, but no tub baths for 24 hours. 6. If you are diabetic, check your sugar for the next 5 days as the steroid may elevate you sugar. Call your medical doctor if you sugar is elevated. Before your next injection: (also refer to your pre-procedure checklist given to you when you scheduled your first injection) 1. Stop all blood thinners as you were directed. If you are unsure, please call our office for clarification. 2. If you were prescribed Valium prior to the procedure or if you are to receive oral sedation, you may eat as you normally would, but you do need a truck driver. Additional Instructions: documented in this encounter [facility] 07-13-2022 Surgical operatio n note Summary: left L2-5 MB RFA Lumbar Medial Branch Nerve Radiofrequency Ablation PROCEDURE: Left L2-5 medial branch nerve radiofrequency ablation CPT code: 18211, 58935 x2 PREPROCEDURE DIAGNOSIS: Lumbar spondylosis POSTPROCEDURE DIAGNOSIS: same ANESTHESIA: local PROCEDURE REPORT: The risks and benefits of the procedure were explained to the patient and all questions were answered. The patient gave consent to proceed with the procedure. The patient was placed prone on the fluoroscopy table with a pillow under the lower abdomen and upper pelvis. The skin was sterilely prepped and draped. The superior margin of the left L3 transverse process was identified using an oblique fluoroscopic view. The overlying skin and subcutaneous tissue were infiltrated with lidocaine 1%. Under fluoroscopic guidance, an 18G 100 mm 10 mm curved active tip cannula was advanced towards the junction of the transverse process and the superior articular process. The needle was then walked over the superior aspect of the transverse process and advanced by around a millimeter. AP and lateral views were obtained to confirm the needle position. Sensory and motor stimulation were performed which elicited deep local back discomfort but no evidence of motor stimulation in the gluteal muscles or extremities. After negative aspiration, 1 mL of bupivacaine 0.5% was then injected though the cannula. The radiofrequency probe was inserted through the cannula and denervation was performed at 80 C for 90 sec. The needle and radiofrequency probe were withdrawn intact. A similar procedure was performed at L4, L5, and sacral ala. The patient tolerated the procedure well with no complications noted. SIGNATURE: Mao Hickman MD PATIENT NAME: Tasha De DATE: July 13, 2022 TIME: 1:32 PM documented in this encounter [facility] 07-01-2022 Miscellaneous Notes 1st attempt left message to return call in regards to scheduling med review for future refills. My chart message also being sent. Patient had virtual visit in October to establish care and never followed up in the office in February as instructed. Needs follow-up appointment for any refills after this Karla Arguelles APRN.CNP Patient has been identified by name and date of : Yes Pharmacy phones for refill(s): Requested Prescriptions Pending Prescriptions Disp Refills omeprazole (PRILOSEC) 40 mg capsule 30 capsule 2 Sig: Take 1 capsule by mouth once daily. Date of last office visit with pcp: 10-14-21. Next appt: none Last 2 Encounter Wt Readings: Date: Wt: 04/20/2022 58.6 kg (129 lb 3.2 oz) 08/26/2021 57.2 kg (126 lb) Previous labs/tests for medication: Blood Pressure: BUN (mg/dL) Date Value 05/27/2021 8 Sodium (mmol/L) Date Value 05/27/2021 142 Last 1 Encounter BP Readings: Date: BP: 04/20/2022 128/84 Liver Function: ALT (U/L) Date Value 05/27/2021 33 AST (U/L) Date Value 05/27/2021 33 Please advise. Thank you. Alex Rubio RN documented in this encounter [facility] 06-30-2022 Instructions Mao Hickman MD - 06/30/2022 3:30 PM EDT Procedure to be done: Radiofrequency Ablations - Lumbar A truck driver is required: Yes Oral Sedation is requested : Yes : You will be given a prescription for Valium to be taken as prescribed. If you are receiving oral sedation, you may eat a light meal. Clothing to wear: Back injections - elastic waist/jogging pants Neck injections - wide neck or button down shirt; please do not wear neck jewelry Plan to take it easy the rest of the day following your procedure. You may resume normal activities 24 hours following your procedure or as otherwise instructed. Special Instructions - NONE The patient will continue with duloxetine, tizanidine, zonisamide, and Maxalt. She will continue using her TENS unit. She will continue with core strengthening and range of motion exercises. Avoid migraine triggers. Patient will be scheduled for left L2-5 medial branch radiofrequency ablation. Follow-up in office in 6 months time. documented in this encounter [facility] 06-30-2022 History of Presen t illness Narrative This note was created using Curister. Subjective Tasha De is a 46 year old female. The patient primarily being seen for back pain Patient was last seen on: 02/25/22 At that time, the treatment plan was: see notes Current Meds: Cymbalta - last dose this am, Tizanidine- last pm Efficacy: helps Side effects: none TENS unit: yes How often used: twice weekly Benefit: helps Physical Therapy: no Last UDS: no narcotics Last injection: 08/11/21 - L2-5 RFA OARRS reviewed INTAKE PAIN ASSESSMENT 06/09/2022 06/30/2022 Are you having pain associated with your visit today? Yes, Provider notified Yes, Provider notified Pain Scales Verbal (Numeric Rating or Visual Analog Scale) Verbal (Numeric Rating or Visual Analog Scale) Pain Level 7 8 Pain Location Leg-Left Back Description Aching;Dull;Sharp;Stabbing Aching;Dull;Sharp;Stabbing;Tigh tness Duration Amount of Time - - Duration Units Years Years Frequency Intermittent Intermittent Intervention/Comfort measure Medication Medication;Heat Pain Assessment - - HPI Patient is getting adequate relief from the present regimen and denies any side effect from it. This has improved the patient s level of functionality and has been able to perform activities of daily living. The patient exhibits no aberrant behavior. The PDMP report and last UDS are both consistent with prescribed medications and are unremarkable. Review of Systems Constitutional: Negative for fever and unexpected weight change. Musculoskeletal: + back pain, joint pain/swelling, numbness, tingling, muscle cramps/weakness, stiffness, arthritis, restless legs, leg pain at night and leg pain with exertion Neurological: Positive for paresthesia Objective BP 152/90 (BP Site: Left Arm, BP Position: Sitting, BP Cuff Size: Large Adult) Pulse 84 Temp 36.3 C (97.4 F) (Temporal) Resp 20 Ht 161.9 cm (5' 3.75 ) Wt 61.2 kg (135 lb) LMP 07/01/2017 SpO2 98% BMI 23.35 kg/m Physical Exam Nursing note reviewed. Constitutional: General: She is not in acute distress. Appearance: Normal appearance. She is well-developed, well-groomed and normal weight. HENT: Head: Normocephalic and atraumatic. Right Ear: Hearing and external ear normal. Left Ear: Hearing and external ear normal. Nose: Nose normal. Eyes: General: No scleral icterus. Extraocular Movements: Extraocular movements intact. Conjunctiva/sclera: Conjunctivae normal. Musculoskeletal: Comments: The patient walks with a normal gait. There is increased pain on weightbearing and range of motion of the left ankle. Allodynia and hyperpathia is present on her left lower leg and foot. Skin: General: Skin is warm and dry. Neurological: Mental Status: She is alert and oriented to person, place, and time. Psychiatric: Attention and Perception: Attention and perception normal. Mood and Affect: Mood and affect normal. Speech: Speech normal. Behavior: Behavior normal. Behavior is cooperative. Thought Content: Thought content normal. Judgment: Judgment normal. Assessment and Plan ASSESSMENT/PLAN: 1. DDD (degenerative disc disease), lumbar - ICD9: 722.52, ICD10: M51.36 (primary diagnosis) The patient will continue with duloxetine, tizanidine, zonisamide, and Maxalt. She will continue using her TENS unit. She will continue with core strengthening and range of motion exercises. Avoid migraine triggers. Patient will be scheduled for left L2-5 medial branch radiofrequency ablation. Follow-up in office in 6 months time. 2. Lumbar spondylosis - ICD9: 721.3, ICD10: M47.816 3. Sacroiliitis (HCC) - ICD9: 720.2, ICD10: M46.1 4. Idiopathic peripheral neuropathy - ICD9: 356.9, ICD10: G60.9 5. Osteoarthritis, generalized - ICD9: 715.00, ICD10: M15.9 6. Migraine without status migrainosus, not intractable, unspecified migraine type - ICD9: 346.90, ICD10: G43.909 7. Myofascial pain syndrome - ICD9: 729.1, ICD10: M79.18 Greater than two stable chronic illness and prescription medication management. This document was transcribed using a voice recognition software and may contain minor errors. Mao Hickman MD documented in this encounter [facility] 06-28-2022 Miscellaneous Notes Tasha notified with verbalized understanding She will see how she does on duloxetine 60 mg daily and will let us know if pain worsens Hina Key RN June 28, 2022 11:04 AM The decreased dose won't cause any problems with tiredness. If she's tolerating it without any increase in her anxiety or pain, I would say, just stay on the lower dose. On 06/09/22 you sent an order for Tasha for duloxetine 60mg daily. She states she has been on 60mg twice daily and is asking if you wanted it decreased. She has been taking it now once daily for past week I asked if she has noticed a difference in pain since decrease and she states she has been sleeping a lot and was not able to tell if she has had any change in pain She is willing to try this new dose longer and let us know how she progresses, unless you want her to return to previous dose She states she could see if there is any decrease in her anxiety with a lower dose as well Hina Key RN June 25, 2022 3:20 PM documented in this encounter [facility] 06-11-2022 Miscellaneous Notes Tasha called for refill of zonegran She states she takes it as a preventive for migraines She states because her neurologist retired Dr. Hickman told her he would take over prescribing It is set up to send if approve Patient phones requesting refills as follows: Requested Prescriptions Pending Prescriptions Disp Refills zonisamide (ZONEGRAN) 100 mg capsule 120 capsule 3 Sig: Take 4 capsules by mouth once daily. Taking over prescribing CTP [phone] Hina Key RN documented in this encounter [facility] 06-09-2022 Instructions Ronald Nolan PA-C - 06/09/2022 11:06 AM EDT The OARRS report has been reviewed and is consistent with the patients medical history and medication intake. Continue with the tizanidine, duloxetine, zonisamide, and maxalt. Continue using TENS unit. Continue with core strengthening and range of motion exercises Avoid migraine triggers. Schedule left lumbar sympathetic blocks x 3 visits once the C-9 is approved. These are to be done in July. I discussed the patient with Dr. Hickman who agrees with my assessment and plan. All of the above is to improve functionality and quality of life. No evidence of drug abuse or diversion is seen at this time. 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 If you are receiving oral sedation, you may eat a light meal. Clothing to wear: Back injections - elastic waist/jogging pants Neck injections - wide neck or button down shirt; please do not wear neck jewelry Plan to take it easy the rest of the day following your procedure. You may resume normal activities 24 hours following your procedure or as otherwise instructed. Special Instructions - NONE documented in this encounter [facility] 06-09-2022 History of Presen t illness Narrative This note was created using NoteWriter. Subjective Tasha De is a 46 year old female. The patient primarily being seen for left leg pain - [facility] Patient was last seen on: 02/25/22 At that time, the treatment plan was: see notes Current Meds: Cymbalta - last dose this am, Tizanidine - last pm Efficacy: help Side effects: tiredness from Tizanidine TENS unit: yes How often used: doesn't use on leg Benefit: Physical Therapy: no Last UDS: no narcotics Last injection: 02/02/22 - Lumbar sympathetic block #3 OARRS reviewed At the present time, the patient reports benefit with her present analgesic therapy. She has some issues with tiredness from the medication Since her previous visit, she denies any hospitalizations or ER visits. She would like to get her next set of lumbar sympathetic nerve blocks scheduled. Her current ones are starting to wear off making her ADLs more difficult. INTAKE PAIN ASSESSMENT 04/20/2022 06/09/2022 Are you having pain associated with your visit today? Yes, Provider notified Yes, Provider notified Pain Scales Verbal (Numeric Rating or Visual Analog Scale) Verbal (Numeric Rating or Visual Analog Scale) Pain Level 10 7 Pain Location Leg-Left Leg-Left Description Aching;Sharp Aching;Dull;Sharp;Stabbing Duration Amount of Time 1 - Duration Units Weeks Years Frequency Continuous Intermittent Intervention/Comfort measure - Medication Pain Assessment - - HPI Review of Systems Constitutional: Negative for fever and unexpected weight change. Musculoskeletal: + back pain, joint pain/swelling, numbness, tingling, muscle cramps/weakness, stiffness, arthritis, restless legs, leg pain at night and leg pain with exertion PAST MEDICAL HISTORY Diagnosis Date Acne vulgaris: inflammatory grade III (chin and jawline face) 03/07/2014 Actinic Damage//Sun-Damaged Skin 04/24/2010 Anxiety 03/30/2019 Atypical nevus of flank 05/03/2014 Benign hypertensive heart disease without heart failure Candidiasis of skin and nails 12/15/2007 Chronic constipation 06/28/2019 Chronic insomnia 06/28/2019 Congenital pigmented melanocytic nevus 04/24/2010 CRPS (complex regional pain syndrome) 03/27/2014 DDD (degenerative disc disease), lumbar 04/09/2008 Degeneration of lumbar or lumbosacral intervertebral disc 04/09/2008 Dermatofibroma 03/07/2014 DVT (deep venous thrombosis) (HCC) after foot surgery 2001 Dysthymic disorder 1997&1998 Depression (non-psychotic)-POST DEPRESSION 1998 Edema 02/10/2010 Embolism and thrombosis of unspecified site 2001 LT LEG Encounter for dietary counseling and surveillance 04/10/2013 Esophageal reflux 08/02/2006 Esophagitis, unspecified Essential hypertension, benign 11/23/2005 Generalized anxiety disorder 1999 Anxiety, Generalized History of gastric bypass 08/15/2013 History of gastric bypass 09/17/2013 History of irregular menstrual bleeding 12/03/2013 Hyperlipidemia LDL goal < 100 12/19/2012 Resolved since gastric bypass Hyperpigmentation of skin: under eyelids 02/22/2012 Hypertension Hypothyroid 09/19/2012 Irritable bowel syndrome 1997 Lumbago Medication overuse headache 08/22/2014 Melanocytic nevi of trunk 03/07/2014 Melanocytic Nevus of Trunk: Back 04/24/2010 Milial cyst 03/07/2014 Moderate episode of recurrent major depressive disorder (HCC) 04/09/2020 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 05/03/2014 Neuralgia, neuritis, and radiculitis, unspecified 11/29/2012 Obesity 07/15/2010 SAMARIA on CPAP Overactive bladder 10/02/2014 Porokeratosis 04/24/2010 Postphlebetic syndrome with other complication 12/28/2007 Postsurgical malabsorption, not elsewhere classified 11/25/2017 PTSD (post-traumatic stress disorder) 03/31/2020 Reflex sympathetic dystrophy of the lower limb 1999 LT. LEG3 Restless legs syndrome 01/06/2011 Rosacea 04/24/2010 Sebaceous hyperplasia 03/07/2014 Skin tag(s) 04/24/2010 Solar Lentigines 04/24/2010 Strain of right knee and leg 05/18/2016 Surgical Scar: skin of upper lip 10/14/2010 Tarsal tunnel syndrome left Telangiectasias 04/24/2010 Tibial tendonitis, posterior, left Tinea corporis 08/25/2010 Type II or unspecified type diabetes mellitus without mention of complication, not stated as uncontrolled 09/18/2012 RESOLVED 09/2013 AFTER GASTRIC BYPASS Unspecified sleep apnea 2004 Sleep apnea Venous insufficiency of both lower extremities 10/03/2019 Viral warts, unspecified 04/24/2010 Vitamin D deficiency 01/20/2011 Xerosis cutis 08/25/2010 PAST SURGICAL HISTORY Procedure Laterality Date CHOLECYSTECTOMY 2002 laparoscopic ESOPHAGOGASTRODUODENOSCOPY TRANSORAL DIAGNOSTIC 05/17/2007 EGD ESSURE 2008 Connie and HSG showed no open tubes EXCISE EXCESS SKIN TISSUE,ABDOMEN 06/23/2020 GASTRIC BYPASS HX 08/15/2013 Lap. Lexis en Y, EGD, liver biopsy HYSTERECTOMY 05/26/2017 [facility] [place] MIDLINE INSERTION/CONSULT 08/15/2013 PAST SURGICAL HISTORY OF 2000 foot surgery SUCT FAROOQ LIPECTOMY,LOW EXTREM Right 09/02/2020 right thigh SUCT FAROOQ LIPECTOMY,LOW EXTREM Left 11/04/2020 left thigh Social History Tobacco Use Smoking status: Never Smokeless tobacco: Never Tobacco comments: vapes Substance Use Topics Alcohol use: No Drug use: No Objective LMP 07/01/2017 Physical Exam Nursing note reviewed. Constitutional: Appearance: Normal appearance. She is well-developed and well-groomed. HENT: Head: Normocephalic and atraumatic. Right Ear: Hearing normal. Left Ear: Hearing normal. Eyes: Conjunctiva/sclera: Conjunctivae normal. Musculoskeletal: Comments: Normal posture, cervical ROM is intact. Neurological: Mental Status: She is alert and oriented to person, place, and time. Psychiatric: Attention and Perception: Attention and perception normal. Mood and Affect: Mood and affect normal. Speech: Speech normal. Behavior: Behavior normal. Behavior is cooperative. Thought Content: Thought content normal. Judgment: Judgment normal. Assessment and Plan ASSESSMENT/PLAN: 1. Tarsal tunnel syndrome, left - [facility] - ICD9: 355.5, ICD10: G57.52 (primary diagnosis) The OARRS report has been reviewed and is consistent with the patients medical history and medication intake. Continue with the tizanidine, duloxetine, zonisamide, and maxalt. Continue using TENS unit. Continue with core strengthening and range of motion exercises Avoid migraine triggers. Schedule left lumbar sympathetic blocks x 3 visits once the C-9 is approved. These are to be done in July. - INJECT NERV BLCK,PARAVERT SYMPATH 2. Posterior tibial tendinitis of left lower extremity - [facility] - ICD9: 726.72, ICD10: M76.822 Ronald Nolan PA-C documented in this encounter [facility] 06-04-2022 Miscellaneous Notes Patient has been identified by name and date of : Yes Pharmacy phones for refill(s): Requested Prescriptions Pending Prescriptions Disp Refills traZODone (DESYREL) 100 mg tablet 30 tablet 5 Sig: Take 1 tablet by mouth daily at bedtime. Date of last office visit with pcp: 10-14-21. Next appt: none Last 2 Encounter Wt Readings: Date: Wt: 04/20/2022 58.6 kg (129 lb 3.2 oz) 08/26/2021 57.2 kg (126 lb) Previous labs/tests for medication: Blood Pressure: BUN (mg/dL) Date Value 05/27/2021 8 Sodium (mmol/L) Date Value 05/27/2021 142 Last 1 Encounter BP Readings: Date: BP: 04/20/2022 128/84 Liver Function: ALT (U/L) Date Value 05/27/2021 33 AST (U/L) Date Value 05/27/2021 33 Please advise. Thank you. Alex Rubio RN documented in this encounter [facility] 05-07-2022 Miscellaneous Notes JANETT: 10/14/2021 Last refill: 06/22/2021 QTY: 90 Refills: 3 Patient has been identified by name and date of : Yes Requested Prescriptions Pending Prescriptions Disp Refills levothyroxine (SYNTHROID) 50 mcg tablet 90 tablet 3 Sig: Take 1 tablet by mouth once daily. RX INSTRUCTIONS: Has used last refill on this medication. Pharmacy initiated this request. No need to notify patient. Madhavi Ashley documented in this encounter [facility] 04-09-2022 Miscellaneous Notes Pharmacy calls in requesting the following refill(s): Pending Prescriptions Disp Refills OMEPRAZOLE 40 MG CAPSULE,DELAYED RELEASE 30 capsule 2 Sig: Take 1 capsule by mouth once daily. ASHWIN: No documented in this encounter [facility] 01-15-2022 Miscellaneous Notes Patient has been identified by name and date of : Yes Pharmacy phones for refill(s): Pending Prescriptions Disp Refills OMEPRAZOLE 40 MG CAPSULE,DELAYED RELEASE 30 capsule 2 Sig: Take 1 capsule by mouth once daily. ASHWIN: No Date of last office visit in primary care: 10/14/21, NOV: 02/02/22 Last 2 Encounter Wt Readings: Date: Wt: 08/26/2021 57.2 kg (126 lb) 05/01/2021 50.8 kg (112 lb) Please advise. Thank you. Gali Harris RN documented in this encounter [facility] 12-18-2021 Miscellaneous Notes Patient has been identified by name and date of : Yes Pharmacy phones for refill(s): Pending Prescriptions Disp Refills TRAZODONE 100 MG TABLET 30 tablet Sig: Take 1 tablet by mouth daily at bedtime. ASHWIN: No Date of last office visit in primary care: 10/14/21, NOV: 02/02/22 Last 2 Encounter Wt Readings: Date: Wt: 08/26/2021 57.2 kg (126 lb) 05/01/2021 50.8 kg (112 lb) Please advise. Thank you. Gali Harris RN documented in this encounter [facility] documented as of this encounter (statuses as of 12/19/2021) [facility] History of Past illness Narrative* Problem Noted Date Resolved Date Strain of right knee and leg 05/18/201603/2017 Hypoproteinemia 04/14/2016 09/09/2016 Hyponatremia 04/14/2016 09/09/2016 Medication overuse headache 08/22/201403/2017 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 04/18/2017 Atypical nevus of flank 05/03/2014 04/18/20 17 Acne vulgaris: inflammatory grade III (chin and jawline face) 03/07/2014 04/18/2017 Dermatofibroma 03/07/2014 04/18/2017 Melanocytic nevi of trunk 03/07/20142016 Sebaceous hyperplasia 03/07/2014 04/18/2017 Milial cyst 03/07/2014 04/18/2017 History of irregular menstrual bleeding 12/04/19 14 04/18/2017 History of gastric bypass 09/17/20132016 Encounter for dietary counseling and surveillanc e 04/10/2013 04/18/2017 Type II or unspecified type diabetes mellitus without mention of complication, not stated as uncontrolled 03/30/2013 Neuralgia, neuritis, and radiculitis, unspecifie d 11/29/2012 10/03/2019 Pain in lower limb 10/16/2012 12/03/2013 Type II or unspecified type diabetes mellitus without mention of complication, not stated as uncontrolled 09/18/2012 Irregular menstrual cycle 03/03/20122013 Abdominal pain, left lower quadrant 03/03/2012 12/03/2013 Dysmenorrhea 03/03/2012 06/28/2019 Hyperpigmentation of skin: under eyelids 012 04/18/2017 Surgical Scar: skin of upper lip 10/14/2010 04/18/2017 Tinea corporis 08/25/2010 04/18/2017 Xerosis cutis 08/25/2010 04/18/2017 Obesity 07/15/2010 06/28/2019 Rosacea 04/24/2010 04/18/2017 Telangiectasias 04/24/2010 04/18/2017 Actinic Damage//Sun-Damaged Skin 04/24/2010 04/18/2017 Porokeratosis 04/24/2010 04/18/2017 Solar Lentigines 04/24/2010 04/18/2017 Congenital pigmented melanocytic nevus 0 04/18/2017 Melanocytic Nevus of Trunk: Back 04/24/2010 04/18/2017 Skin tag(s) 04/24/2010 04/18/2017 Viral warts, unspecified 04/24/2010 017 Edema 02/10/2010 04/18/2017 Unspecified sleep apnea 02/19/2008 12/04/19 14 Overview: CPAP @ 8cm sleep study 12/18/10 Morbid obesity 02/19/2008 12/03/2013 Postphlebetic syndrome with other complication 0 12/28/2007 04/18/2017 Rosacea 10/02/2007 04/24/2010 Scanty or infrequent menstruation 10/02/2007 12/03/2013 Dysmetabolic syndrome X 04/19/2007 12/04/19 14 Lumbago 08/09/2006 04/18/2017 Essential hypertension, benign 11/23/2005 1 documented as of this encounter (statuses as of 01/13/2022) [facility] History of Past illness Narrative* Problem Noted Date Resolved Date Strain of right knee and leg 05/18/201603/2017 Hypoproteinemia 04/14/2016 09/09/2016 Hyponatremia 04/14/2016 09/09/2016 Medication overuse headache 08/22/201403/2017 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 04/18/2017 Atypical nevus of flank 05/03/2014 04/18/20 17 Acne vulgaris: inflammatory grade III (chin and jawline face) 03/07/2014 04/18/2017 Dermatofibroma 03/07/2014 04/18/2017 Melanocytic nevi of trunk 03/07/20142016 Sebaceous hyperplasia 03/07/2014 04/18/2017 Milial cyst 03/07/2014 04/18/2017 History of irregular menstrual bleeding 12/04/19 14 04/18/2017 History of gastric bypass 09/17/20132016 Encounter for dietary counseling and surveillanc e 04/10/2013 04/18/2017 Type II or unspecified type diabetes mellitus without mention of complication, not stated as uncontrolled 03/30/2013 Neuralgia, neuritis, and radiculitis, unspecifie d 11/29/2012 10/03/2019 Pain in lower limb 10/16/2012 12/03/2013 Type II or unspecified type diabetes mellitus without mention of complication, not stated as uncontrolled 09/18/2012 Irregular menstrual cycle 03/03/20122013 Abdominal pain, left lower quadrant 03/03/2012 12/03/2013 Dysmenorrhea 03/03/2012 06/28/2019 Hyperpigmentation of skin: under eyelids 012 04/18/2017 Surgical Scar: skin of upper lip 10/14/2010 04/18/2017 Tinea corporis 08/25/2010 04/18/2017 Xerosis cutis 08/25/2010 04/18/2017 Obesity 07/15/2010 06/28/2019 Rosacea 04/24/2010 04/18/2017 Telangiectasias 04/24/2010 04/18/2017 Actinic Damage//Sun-Damaged Skin 04/24/2010 04/18/2017 Porokeratosis 04/24/2010 04/18/2017 Solar Lentigines 04/24/2010 04/18/2017 Congenital pigmented melanocytic nevus 0 04/18/2017 Melanocytic Nevus of Trunk: Back 04/24/2010 04/18/2017 Skin tag(s) 04/24/2010 04/18/2017 Viral warts, unspecified 04/24/2010 017 Edema 02/10/2010 04/18/2017 Unspecified sleep apnea 02/19/2008 12/04/19 14 Overview: CPAP @ 8cm sleep study 12/18/10 Morbid obesity 02/19/2008 12/03/2013 Postphlebetic syndrome with other complication 0 12/28/2007 04/18/2017 Rosacea 10/02/2007 04/24/2010 Scanty or infrequent menstruation 10/02/2007 12/03/2013 Dysmetabolic syndrome X 04/19/2007 12/04/19 14 Lumbago 08/09/2006 04/18/2017 Essential hypertension, benign 11/23/2005 1 documented as of this encounter (statuses as of 01/15/2022) [facility]09[facility]2016 History of Past illness Narrative* Problem Noted Date Resolved Date Strain of right knee and leg 05/18/201603/2017 Hypoproteinemia 04/14/2016 09/09/2016 Hyponatremia 04/14/2016 09/09/2016 Medication overuse headache 08/22/201403/2017 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 04/18/2017 Atypical nevus of flank 05/03/2014 04/18/20 Acne vulgaris: inflammatory grade III (chin and jawline face) 03/07/2014 04/18/2017 Dermatofibroma 03/07/2014 04/18/2017 Melanocytic nevi of trunk 03/07/20142016 Sebaceous hyperplasia 03/07/2014 04/18/2017 Milial cyst 03/07/2014 04/18/2017 History of irregular menstrual bleeding 12/04/19 14 04/18/2017 History of gastric bypass 09/17/20132016 Encounter for dietary counseling and surveillanc e 04/10/2013 04/18/2017 Type II or unspecified type diabetes mellitus without mention of complication, not stated as uncontrolled 03/30/2013 Neuralgia, neuritis, and radiculitis, unspecifie d 11/29/2012 10/03/2019 Pain in lower limb 10/16/2012 12/03/2013 Type II or unspecified type diabetes mellitus without mention of complication, not stated as uncontrolled 09/18/2012 Irregular menstrual cycle 03/03/20122013 Abdominal pain, left lower quadrant 03/03/2012 12/03/2013 Dysmenorrhea 03/03/2012 06/28/2019 Hyperpigmentation of skin: under eyelids 012 04/18/2017 Surgical Scar: skin of upper lip 10/14/2010 04/18/2017 Tinea corporis 08/25/2010 04/18/2017 Xerosis cutis 08/25/2010 04/18/2017 Obesity 07/15/2010 06/28/2019 Rosacea 04/24/2010 04/18/2017 Telangiectasias 04/24/2010 04/18/2017 Actinic Damage//Sun-Damaged Skin 04/24/2010 04/18/2017 Porokeratosis 04/24/2010 04/18/2017 Solar Lentigines 04/24/2010 04/18/2017 Congenital pigmented melanocytic nevus 0 04/18/2017 Melanocytic Nevus of Trunk: Back 04/24/2010 04/18/2017 Skin tag(s) 04/24/2010 04/18/2017 Viral warts, unspecified 04/24/2010 017 Edema 02/10/2010 04/18/2017 Unspecified sleep apnea 02/19/2008 12/04/19 14 Overview: CPAP @ 8cm sleep study 12/18/10 Morbid obesity 02/19/2008 12/03/2013 Postphlebetic syndrome with other complication 0 12/28/2007 04/18/2017 Rosacea 10/02/2007 04/24/2010 Scanty or infrequent menstruation 10/02/2007 12/03/2013 Dysmetabolic syndrome X 04/19/2007 12/04/19 14 Lumbago 08/09/2006 04/18/2017 Essential hypertension, benign 11/23/2005 1 documented as of this encounter (statuses as of 01/20/2022) [facility] History of Past illness Narrative* Problem Noted Date Resolved Date Strain of right knee and leg 05/18/201603/2017 Hypoproteinemia 04/14/2016 09/09/2016 Hyponatremia 04/14/2016 09/09/2016 Medication overuse headache 08/22/2014 0803/2017 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 04/18/2017 Atypical nevus of flank 05/03/2014 04/18/20 17 Acne vulgaris: inflammatory grade III (chin and jawline face) 03/07/2014 04/18/2017 Dermatofibroma 03/07/2014 04/18/2017 Melanocytic nevi of trunk 03/07/20142016 Sebaceous hyperplasia 03/07/2014 04/18/2017 Milial cyst 03/07/2014 04/18/2017 History of irregular menstrual bleeding 12/04/19 14 04/18/2017 History of gastric bypass 09/17/20132016 Encounter for dietary counseling and surveillanc e 04/10/2013 04/18/2017 Type II or unspecified type diabetes mellitus without mention of complication, not stated as uncontrolled 03/30/2013 Neuralgia, neuritis, and radiculitis, unspecifie d 11/29/2012 10/03/2019 Pain in lower limb 10/16/2012 12/03/2013 Type II or unspecified type diabetes mellitus without mention of complication, not stated as uncontrolled 09/18/2012 Irregular menstrual cycle 03/03/20122013 Abdominal pain, left lower quadrant 03/03/2012 12/03/2013 Dysmenorrhea 03/03/2012 06/28/2019 Hyperpigmentation of skin: under eyelids 012 04/18/2017 Surgical Scar: skin of upper lip 10/14/2010 04/18/2017 Tinea corporis 08/25/2010 04/18/2017 Xerosis cutis 08/25/2010 04/18/2017 Obesity 07/15/2010 06/28/2019 Rosacea 04/24/2010 04/18/2017 Telangiectasias 04/24/2010 04/18/2017 Actinic Damage//Sun-Damaged Skin 04/24/2010 04/18/2017 Porokeratosis 04/24/2010 04/18/2017 Solar Lentigines 04/24/2010 04/18/2017 Congenital pigmented melanocytic nevus 0 04/18/2017 Melanocytic Nevus of Trunk: Back 04/24/2010 04/18/2017 Skin tag(s) 04/24/2010 04/18/2017 Viral warts, unspecified 04/24/2010 017 Edema 02/10/2010 04/18/2017 Unspecified sleep apnea 02/19/2008 12/04/19 14 Overview: CPAP @ 8cm sleep study 12/18/10 Morbid obesity 02/19/2008 12/03/2013 Postphlebetic syndrome with other complication 0 12/28/2007 04/18/2017 Rosacea 10/02/2007 04/24/2010 Scanty or infrequent menstruation 10/02/2007 12/03/2013 Dysmetabolic syndrome X 04/19/2007 12/04/19 14 Lumbago 08/09/2006 04/18/2017 Essential hypertension, benign 11/23/2005 1 documented as of this encounter (statuses as of 01/27/2022) [facility] History of Past illness Narrative* Problem Noted Date Resolved Date Strain of right knee and leg 05/18/201603/2017 Hypoproteinemia 04/14/2016 09/09/2016 Hyponatremia 04/14/2016 09/09/2016 Medication overuse headache 08/22/2014 08/03/2017 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 04/18/2017 Atypical nevus of flank 05/03/2014 04/18/20 17 Acne vulgaris: inflammatory grade III (chin and jawline face) 03/07/2014 04/18/2017 Dermatofibroma 03/07/2014 04/18/2017 Melanocytic nevi of trunk 03/07/20142016 Sebaceous hyperplasia 03/07/2014 04/18/2017 Milial cyst 03/07/2014 04/18/2017 History of irregular menstrual bleeding 12/04/19 14 04/18/2017 History of gastric bypass 09/17/20132016 Encounter for dietary counseling and surveillanc e 04/10/2013 04/18/2017 Type II or unspecified type diabetes mellitus without mention of complication, not stated as uncontrolled 03/30/2013 Neuralgia, neuritis, and radiculitis, unspecifie d 11/29/2012 10/03/2019 Pain in lower limb 10/16/2012 12/03/2013 Type II or unspecified type diabetes mellitus without mention of complication, not stated as uncontrolled 09/18/2012 Irregular menstrual cycle 03/03/20122013 Abdominal pain, left lower quadrant 03/03/2012 12/03/2013 Dysmenorrhea 03/03/2012 06/28/2019 Hyperpigmentation of skin: under eyelids 012 04/18/2017 Surgical Scar: skin of upper lip 10/14/2010 04/18/2017 Tinea corporis 08/25/2010 04/18/2017 Xerosis cutis 08/25/2010 04/18/2017 Obesity 07/15/2010 06/28/2019 Rosacea 04/24/2010 04/18/2017 Telangiectasias 04/24/2010 04/18/2017 Actinic Damage//Sun-Damaged Skin 04/24/2010 04/18/2017 Porokeratosis 04/24/2010 04/18/2017 Solar Lentigines 04/24/2010 04/18/2017 Congenital pigmented melanocytic nevus 0 04/18/2017 Melanocytic Nevus of Trunk: Back 04/24/2010 04/18/2017 Skin tag(s) 04/24/2010 04/18/2017 Viral warts, unspecified 04/24/2010 017 Edema 02/10/2010 04/18/2017 Unspecified sleep apnea 02/19/2008 12/04/19 14 Overview: CPAP @ 8cm sleep study 12/18/10 Morbid obesity 02/19/2008 12/03/2013 Postphlebetic syndrome with other complication 0 12/28/2007 04/18/2017 Rosacea 10/02/2007 04/24/2010 Scanty or infrequent menstruation 10/02/2007 12/03/2013 Dysmetabolic syndrome X 04/19/2007 12/04/19 14 Lumbago 08/09/2006 04/18/2017 Essential hypertension, benign 11/23/2005 1 documented as of this encounter (statuses as of 02/26/2022) [facility] History of Past illness Narrative* Problem Noted Date Resolved Date Strain of right knee and leg 05/18/201603/2017 Hypoproteinemia 04/14/2016 09/09/2016 Hyponatremia 04/14/2016 09/09/2016 Medication overuse headache 08/22/2014 0803/2017 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 04/18/2017 Atypical nevus of flank 05/03/2014 04/18/20 17 Acne vulgaris: inflammatory grade III (chin and jawline face) 03/07/2014 04/18/2017 Dermatofibroma 03/07/2014 04/18/2017 Melanocytic nevi of trunk 03/07/20142016 Sebaceous hyperplasia 03/07/2014 04/18/2017 Milial cyst 03/07/2014 04/18/2017 History of irregular menstrual bleeding 12/04/19 14 04/18/2017 History of gastric bypass 09/17/20132016 Encounter for dietary counseling and surveillanc e 04/10/2013 04/18/2017 Type II or unspecified type diabetes mellitus without mention of complication, not stated as uncontrolled 03/30/2013 Neuralgia, neuritis, and radiculitis, unspecifie d 11/29/2012 10/03/2019 Pain in lower limb 10/16/2012 12/03/2013 Type II or unspecified type diabetes mellitus without mention of complication, not stated as uncontrolled 09/18/2012 Irregular menstrual cycle 03/03/20122013 Abdominal pain, left lower quadrant 03/03/2012 12/03/2013 Dysmenorrhea 03/03/2012 06/28/2019 Hyperpigmentation of skin: under eyelids 012 04/18/2017 Surgical Scar: skin of upper lip 10/14/2010 04/18/2017 Tinea corporis 08/25/2010 04/18/2017 Xerosis cutis 08/25/2010 04/18/2017 Obesity 07/15/2010 06/28/2019 Rosacea 04/24/2010 04/18/2017 Telangiectasias 04/24/2010 04/18/2017 Actinic Damage//Sun-Damaged Skin 04/24/2010 04/18/2017 Porokeratosis 04/24/2010 04/18/2017 Solar Lentigines 04/24/2010 04/18/2017 Congenital pigmented melanocytic nevus 0 04/18/2017 Melanocytic Nevus of Trunk: Back 04/24/2010 04/18/2017 Skin tag(s) 04/24/2010 04/18/2017 Viral warts, unspecified 04/24/2010 017 Edema 02/10/2010 04/18/2017 Unspecified sleep apnea 02/19/2008 12/04/19 14 Overview: CPAP @ 8cm sleep study 12/18/10 Morbid obesity 02/19/2008 12/03/2013 Postphlebetic syndrome with other complication 0 12/28/2007 04/18/2017 Rosacea 10/02/2007 04/24/2010 Scanty or infrequent menstruation 10/02/2007 12/03/2013 Dysmetabolic syndrome X 04/19/2007 12/04/19 14 Lumbago 08/09/2006 04/18/2017 Essential hypertension, benign 11/23/2005 1 documented as of this encounter (statuses as of 03/15/2022) [facility] History of Past illness Narrative* Problem Noted Date Resolved Date Strain of right knee and leg 05/18/201603/2017 Hypoproteinemia 04/14/2016 09/09/2016 Hyponatremia 04/14/2016 09/09/2016 Medication overuse headache 08/22/201403/2017 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 04/18/2017 Atypical nevus of flank 05/03/2014 04/18/20 Acne vulgaris: inflammatory grade III (chin and jawline face) 03/07/2014 04/18/2017 Dermatofibroma 03/07/2014 04/18/2017 Melanocytic nevi of trunk 03/07/20142016 Sebaceous hyperplasia 03/07/2014 04/18/2017 Milial cyst 03/07/2014 04/18/2017 History of irregular menstrual bleeding 12/04/19 14 04/18/2017 History of gastric bypass 09/17/20132016 Encounter for dietary counseling and surveillanc e 04/10/2013 04/18/2017 Type II or unspecified type diabetes mellitus without mention of complication, not stated as uncontrolled 03/30/2013 Neuralgia, neuritis, and radiculitis, unspecifie d 11/29/2012 10/03/2019 Pain in lower limb 10/16/2012 12/03/2013 Type II or unspecified type diabetes mellitus without mention of complication, not stated as uncontrolled 09/18/2012 Irregular menstrual cycle 03/03/20122013 Abdominal pain, left lower quadrant 03/03/2012 12/03/2013 Dysmenorrhea 03/03/2012 06/28/2019 Hyperpigmentation of skin: under eyelids 012 04/18/2017 Surgical Scar: skin of upper lip 10/14/2010 04/18/2017 Tinea corporis 08/25/2010 04/18/2017 Xerosis cutis 08/25/2010 04/18/2017 Obesity 07/15/2010 06/28/2019 Rosacea 04/24/2010 04/18/2017 Telangiectasias 04/24/2010 04/18/2017 Actinic Damage//Sun-Damaged Skin 04/24/2010 04/18/2017 Porokeratosis 04/24/2010 04/18/2017 Solar Lentigines 04/24/2010 04/18/2017 Congenital pigmented melanocytic nevus 0 04/18/2017 Melanocytic Nevus of Trunk: Back 04/24/2010 04/18/2017 Skin tag(s) 04/24/2010 04/18/2017 Viral warts, unspecified 04/24/2010 017 Edema 02/10/2010 04/18/2017 Unspecified sleep apnea 02/19/2008 12/04/19 14 Overview: CPAP @ 8cm sleep study 12/18/10 Morbid obesity 02/19/2008 12/03/2013 Postphlebetic syndrome with other complication 0 12/28/2007 04/18/2017 Rosacea 10/02/2007 04/24/2010 Scanty or infrequent menstruation 10/02/2007 12/03/2013 Dysmetabolic syndrome X 04/19/2007 12/04/19 14 Lumbago 08/09/2006 04/18/2017 Essential hypertension, benign 11/23/2005 1 documented as of this encounter (statuses as of 04/06/2022) [facility] History of Past illness Narrative* Problem Noted Date Resolved Date Strain of right knee and leg 05/18/201603/2017 Hypoproteinemia 04/14/2016 09/09/2016 Hyponatremia 04/14/2016 09/09/2016 Medication overuse headache 08/22/2014 0803/2017 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 04/18/2017 Atypical nevus of flank 05/03/2014 04/18/20 17 Acne vulgaris: inflammatory grade III (chin and jawline face) 03/07/2014 04/18/2017 Dermatofibroma 03/07/2014 04/18/2017 Melanocytic nevi of trunk 03/07/20142016 Sebaceous hyperplasia 03/07/2014 04/18/2017 Milial cyst 03/07/2014 04/18/2017 History of irregular menstrual bleeding 12/04/19 14 04/18/2017 History of gastric bypass 09/17/20132016 Encounter for dietary counseling and surveillanc e 04/10/2013 04/18/2017 Type II or unspecified type diabetes mellitus without mention of complication, not stated as uncontrolled 03/30/2013 Neuralgia, neuritis, and radiculitis, unspecifie d 11/29/2012 10/03/2019 Pain in lower limb 10/16/2012 12/03/2013 Type II or unspecified type diabetes mellitus without mention of complication, not stated as uncontrolled 09/18/2012 Irregular menstrual cycle 03/03/20122013 Abdominal pain, left lower quadrant 03/03/2012 12/03/2013 Dysmenorrhea 03/03/2012 06/28/2019 Hyperpigmentation of skin: under eyelids 012 04/18/2017 Surgical Scar: skin of upper lip 10/14/2010 04/18/2017 Tinea corporis 08/25/2010 04/18/2017 Xerosis cutis 08/25/2010 04/18/2017 Obesity 07/15/2010 06/28/2019 Rosacea 04/24/2010 04/18/2017 Telangiectasias 04/24/2010 04/18/2017 Actinic Damage//Sun-Damaged Skin 04/24/2010 04/18/2017 Porokeratosis 04/24/2010 04/18/2017 Solar Lentigines 04/24/2010 04/18/2017 Congenital pigmented melanocytic nevus 0 04/18/2017 Melanocytic Nevus of Trunk: Back 04/24/2010 04/18/2017 Skin tag(s) 04/24/2010 04/18/2017 Viral warts, unspecified 04/24/2010 017 Edema 02/10/2010 04/18/2017 Unspecified sleep apnea 02/19/2008 12/04/19 14 Overview: CPAP @ 8cm sleep study 12/18/10 Morbid obesity 02/19/2008 12/03/2013 Postphlebetic syndrome with other complication 0 12/28/2007 04/18/2017 Rosacea 10/02/2007 04/24/2010 Scanty or infrequent menstruation 10/02/2007 12/03/2013 Dysmetabolic syndrome X 04/19/2007 12/04/19 14 Lumbago 08/09/2006 04/18/2017 Essential hypertension, benign 11/23/2005 1 documented as of this encounter (statuses as of 04/09/2022) [facility] History of Past illness Narrative* Problem Noted Date Resolved Date Strain of right knee and leg 05/18/201603/2017 Hypoproteinemia 04/14/2016 09/09/2016 Hyponatremia 04/14/2016 09/09/2016 Medication overuse headache 08/22/201403/2017 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 04/18/2017 Atypical nevus of flank 05/03/2014 04/18/20 17 Acne vulgaris: inflammatory grade III (chin and jawline face) 03/07/2014 04/18/2017 Dermatofibroma 03/07/2014 04/18/2017 Melanocytic nevi of trunk 03/07/20142016 Sebaceous hyperplasia 03/07/2014 04/18/2017 Milial cyst 03/07/2014 04/18/2017 History of irregular menstrual bleeding 12/04/19 14 04/18/2017 History of gastric bypass 09/17/20132016 Encounter for dietary counseling and surveillanc e 04/10/2013 04/18/2017 Type II or unspecified type diabetes mellitus without mention of complication, not stated as uncontrolled 03/30/2013 Neuralgia, neuritis, and radiculitis, unspecifie d 11/29/2012 10/03/2019 Pain in lower limb 10/16/2012 12/03/2013 Type II or unspecified type diabetes mellitus without mention of complication, not stated as uncontrolled 09/18/2012 Irregular menstrual cycle 03/03/20122013 Abdominal pain, left lower quadrant 03/03/2012 12/03/2013 Dysmenorrhea 03/03/2012 06/28/2019 Hyperpigmentation of skin: under eyelids 012 04/18/2017 Surgical Scar: skin of upper lip 10/14/2010 04/18/2017 Tinea corporis 08/25/2010 04/18/2017 Xerosis cutis 08/25/2010 04/18/2017 Obesity 07/15/2010 06/28/2019 Rosacea 04/24/2010 04/18/2017 Telangiectasias 04/24/2010 04/18/2017 Actinic Damage//Sun-Damaged Skin 04/24/2010 04/18/2017 Porokeratosis 04/24/2010 04/18/2017 Solar Lentigines 04/24/2010 04/18/2017 Congenital pigmented melanocytic nevus 0 04/18/2017 Melanocytic Nevus of Trunk: Back 04/24/2010 04/18/2017 Skin tag(s) 04/24/2010 04/18/2017 Viral warts, unspecified 04/24/2010 017 Edema 02/10/2010 04/18/2017 Unspecified sleep apnea 02/19/2008 12/04/19 14 Overview: CPAP @ 8cm sleep study 12/18/10 Morbid obesity 02/19/2008 12/03/2013 Postphlebetic syndrome with other complication 0 12/28/2007 04/18/2017 Rosacea 10/02/2007 04/24/2010 Scanty or infrequent menstruation 10/02/2007 12/03/2013 Dysmetabolic syndrome X 04/19/2007 12/04/19 14 Lumbago 08/09/2006 04/18/2017 Essential hypertension, benign 11/23/2005 1 documented as of this encounter (statuses as of 05/07/2022) [facility] History of Past illness Narrative* Problem Noted Date Resolved Date Strain of right knee and leg 05/18/201603/2017 Hypoproteinemia 04/14/2016 09/09/2016 Hyponatremia 04/14/2016 09/09/2016 Medication overuse headache 08/22/201403/2017 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 04/18/2017 Atypical nevus of flank 05/03/2014 04/18/20 17 Acne vulgaris: inflammatory grade III (chin and jawline face) 03/07/2014 04/18/2017 Dermatofibroma 03/07/2014 04/18/2017 Melanocytic nevi of trunk 03/07/20142016 Sebaceous hyperplasia 03/07/2014 04/18/2017 Milial cyst 03/07/2014 04/18/2017 History of irregular menstrual bleeding 12/04/19 14 04/18/2017 History of gastric bypass 09/17/20132016 Encounter for dietary counseling and surveillanc e 04/10/2013 04/18/2017 Type II or unspecified type diabetes mellitus without mention of complication, not stated as uncontrolled 03/30/2013 Neuralgia, neuritis, and radiculitis, unspecifie d 11/29/2012 10/03/2019 Pain in lower limb 10/16/2012 12/03/2013 Type II or unspecified type diabetes mellitus without mention of complication, not stated as uncontrolled 09/18/2012 Irregular menstrual cycle 03/03/20122013 Abdominal pain, left lower quadrant 03/03/2012 12/03/2013 Dysmenorrhea 03/03/2012 06/28/2019 Hyperpigmentation of skin: under eyelids 012 04/18/2017 Surgical Scar: skin of upper lip 10/14/2010 04/18/2017 Tinea corporis 08/25/2010 04/18/2017 Xerosis cutis 08/25/2010 04/18/2017 Obesity 07/15/2010 06/28/2019 Rosacea 04/24/2010 04/18/2017 Telangiectasias 04/24/2010 04/18/2017 Actinic Damage//Sun-Damaged Skin 04/24/2010 04/18/2017 Porokeratosis 04/24/2010 04/18/2017 Solar Lentigines 04/24/2010 04/18/2017 Congenital pigmented melanocytic nevus 0 04/18/2017 Melanocytic Nevus of Trunk: Back 04/24/2010 04/18/2017 Skin tag(s) 04/24/2010 04/18/2017 Viral warts, unspecified 04/24/2010 017 Edema 02/10/2010 04/18/2017 Unspecified sleep apnea 02/19/2008 12/04/19 14 Overview: CPAP @ 8cm sleep study 12/18/10 Morbid obesity 02/19/2008 12/03/2013 Postphlebetic syndrome with other complication 0 12/28/2007 04/18/2017 Rosacea 10/02/2007 04/24/2010 Scanty or infrequent menstruation 10/02/2007 12/03/2013 Dysmetabolic syndrome X 04/19/2007 12/04/19 14 Lumbago 08/09/2006 04/18/2017 Essential hypertension, benign 11/23/2005 1 documented as of this encounter (statuses as of 06/04/2022) [facility] History of Past illness Narrative* Problem Noted Date Resolved Date Strain of right knee and leg 05/18/201603/2017 Hypoproteinemia 04/14/2016 09/09/2016 Hyponatremia 04/14/2016 09/09/2016 Medication overuse headache 08/22/201403/2017 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 04/18/2017 Atypical nevus of flank 05/03/2014 04/18/20 17 Acne vulgaris: inflammatory grade III (chin and jawline face) 03/07/2014 04/18/2017 Dermatofibroma 03/07/2014 04/18/2017 Melanocytic nevi of trunk 03/07/20142016 Sebaceous hyperplasia 03/07/2014 04/18/2017 Milial cyst 03/07/2014 04/18/2017 History of irregular menstrual bleeding 12/04/19 14 04/18/2017 History of gastric bypass 09/17/20132016 Encounter for dietary counseling and surveillanc e 04/10/2013 04/18/2017 Type II or unspecified type diabetes mellitus without mention of complication, not stated as uncontrolled 03/30/2013 Neuralgia, neuritis, and radiculitis, unspecifie d 11/29/2012 10/03/2019 Pain in lower limb 10/16/2012 12/03/2013 Type II or unspecified type diabetes mellitus without mention of complication, not stated as uncontrolled 09/18/2012 Irregular menstrual cycle 03/03/20122013 Abdominal pain, left lower quadrant 03/03/2012 12/03/2013 Dysmenorrhea 03/03/2012 06/28/2019 Hyperpigmentation of skin: under eyelids 012 04/18/2017 Surgical Scar: skin of upper lip 10/14/2010 04/18/2017 Tinea corporis 08/25/2010 04/18/2017 Xerosis cutis 08/25/2010 04/18/2017 Obesity 07/15/2010 06/28/2019 Rosacea 04/24/2010 04/18/2017 Telangiectasias 04/24/2010 04/18/2017 Actinic Damage//Sun-Damaged Skin 04/24/2010 04/18/2017 Porokeratosis 04/24/2010 04/18/2017 Solar Lentigines 04/24/2010 04/18/2017 Congenital pigmented melanocytic nevus 0 04/18/2017 Melanocytic Nevus of Trunk: Back 04/24/2010 04/18/2017 Skin tag(s) 04/24/2010 04/18/2017 Viral warts, unspecified 04/24/2010 017 Edema 02/10/2010 04/18/2017 Unspecified sleep apnea 02/19/2008 12/04/19 14 Overview: CPAP @ 8cm sleep study 12/18/10 Morbid obesity 02/19/2008 12/03/2013 Postphlebetic syndrome with other complication 0 12/28/2007 04/18/2017 Rosacea 10/02/2007 04/24/2010 Scanty or infrequent menstruation 10/02/2007 12/03/2013 Dysmetabolic syndrome X 04/19/2007 12/04/19 14 Lumbago 08/09/2006 04/18/2017 Essential hypertension, benign 11/23/2005 1 documented as of this encounter (statuses as of 06/08/2022) [facility] History of Past illness Narrative* Problem Noted Date Resolved Date Strain of right knee and leg 05/18/201603/2017 Hypoproteinemia 04/14/2016 09/09/2016 Hyponatremia 04/14/2016 09/09/2016 Medication overuse headache 08/22/2014 0803/2017 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 04/18/2017 Atypical nevus of flank 05/03/2014 04/18/20 17 Acne vulgaris: inflammatory grade III (chin and jawline face) 03/07/2014 04/18/2017 Dermatofibroma 03/07/2014 04/18/2017 Melanocytic nevi of trunk 03/07/20142016 Sebaceous hyperplasia 03/07/2014 04/18/2017 Milial cyst 03/07/2014 04/18/2017 History of irregular menstrual bleeding 12/04/19 14 04/18/2017 History of gastric bypass 09/17/20132016 Encounter for dietary counseling and surveillanc e 04/10/2013 04/18/2017 Type II or unspecified type diabetes mellitus without mention of complication, not stated as uncontrolled 03/30/2013 Neuralgia, neuritis, and radiculitis, unspecifie d 11/29/2012 10/03/2019 Pain in lower limb 10/16/2012 12/03/2013 Type II or unspecified type diabetes mellitus without mention of complication, not stated as uncontrolled 09/18/2012 Irregular menstrual cycle 03/03/20122013 Abdominal pain, left lower quadrant 03/03/2012 12/03/2013 Dysmenorrhea 03/03/2012 06/28/2019 Hyperpigmentation of skin: under eyelids 012 04/18/2017 Surgical Scar: skin of upper lip 10/14/2010 04/18/2017 Tinea corporis 08/25/2010 04/18/2017 Xerosis cutis 08/25/2010 04/18/2017 Obesity 07/15/2010 06/28/2019 Rosacea 04/24/2010 04/18/2017 Telangiectasias 04/24/2010 04/18/2017 Actinic Damage//Sun-Damaged Skin 04/24/2010 04/18/2017 Porokeratosis 04/24/2010 04/18/2017 Solar Lentigines 04/24/2010 04/18/2017 Congenital pigmented melanocytic nevus 0 04/18/2017 Melanocytic Nevus of Trunk: Back 04/24/2010 04/18/2017 Skin tag(s) 04/24/2010 04/18/2017 Viral warts, unspecified 04/24/2010 017 Edema 02/10/2010 04/18/2017 Unspecified sleep apnea 02/19/2008 12/04/19 14 Overview: CPAP @ 8cm sleep study 4/8/11 Morbid obesity 02/19/2008 12/03/2013 Postphlebetic syndrome with other complication 0 12/28/2007 04/18/2017 Rosacea 10/02/2007 04/24/2010 Scanty or infrequent menstruation 10/02/2007 12/03/2013 Dysmetabolic syndrome X 04/19/2007 12/04/19 14 Lumbago 08/09/2006 04/18/2017 Essential hypertension, benign 11/23/2005 1 documented as of this encounter (statuses as of 06/09/2022) [facility]09[facility]2016 History of Past illness Narrative* Problem Noted Date Resolved Date Strain of right knee and leg 05/18/201603/2017 Hypoproteinemia 04/14/2016 09/09/2016 Hyponatremia 04/14/2016 09/09/2016 Medication overuse headache 08/22/201403/2017 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 04/18/2017 Atypical nevus of flank 05/03/2014 04/18/20 17 Acne vulgaris: inflammatory grade III (chin and jawline face) 03/07/2014 04/18/2017 Dermatofibroma 03/07/2014 04/18/2017 Melanocytic nevi of trunk 03/07/20142016 Sebaceous hyperplasia 03/07/2014 04/18/2017 Milial cyst 03/07/2014 04/18/2017 History of irregular menstrual bleeding 12/04/19 14 04/18/2017 History of gastric bypass 09/17/20132016 Encounter for dietary counseling and surveillanc e 04/10/2013 04/18/2017 Type II or unspecified type diabetes mellitus without mention of complication, not stated as uncontrolled 03/30/2013 Neuralgia, neuritis, and radiculitis, unspecifie d 11/29/2012 10/03/2019 Pain in lower limb 10/16/2012 12/03/2013 Type II or unspecified type diabetes mellitus without mention of complication, not stated as uncontrolled 09/18/2012 Irregular menstrual cycle 03/03/20122013 Abdominal pain, left lower quadrant 03/03/2012 12/03/2013 Dysmenorrhea 03/03/2012 06/28/2019 Hyperpigmentation of skin: under eyelids 012 04/18/2017 Surgical Scar: skin of upper lip 10/14/2010 04/18/2017 Tinea corporis 08/25/2010 04/18/2017 Xerosis cutis 08/25/2010 04/18/2017 Obesity 07/15/2010 06/28/2019 Rosacea 04/24/2010 04/18/2017 Telangiectasias 04/24/2010 04/18/2017 Actinic Damage//Sun-Damaged Skin 04/24/2010 04/18/2017 Porokeratosis 04/24/2010 04/18/2017 Solar Lentigines 04/24/2010 04/18/2017 Congenital pigmented melanocytic nevus 0 04/18/2017 Melanocytic Nevus of Trunk: Back 04/24/2010 04/18/2017 Skin tag(s) 04/24/2010 04/18/2017 Viral warts, unspecified 04/24/2010 017 Edema 02/10/2010 04/18/2017 Unspecified sleep apnea 02/19/2008 12/04/19 14 Overview: CPAP @ 8cm sleep study 12/18/10 Morbid obesity 02/19/2008 12/03/2013 Postphlebetic syndrome with other complication 0 12/28/2007 04/18/2017 Rosacea 10/02/2007 04/24/2010 Scanty or infrequent menstruation 10/02/2007 12/03/2013 Dysmetabolic syndrome X 04/19/2007 12/04/19 14 Lumbago 08/09/2006 04/18/2017 Essential hypertension, benign 11/23/2005 1 documented as of this encounter (statuses as of 06/11/2022) [facility] History of Past illness Narrative* Problem Noted Date Resolved Date Strain of right knee and leg 05/18/201603/2017 Hypoproteinemia 04/14/2016 09/09/2016 Hyponatremia 04/14/2016 09/09/2016 Medication overuse headache 08/22/2014 08/03/2017 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 04/18/2017 Atypical nevus of flank 05/03/2014 04/18/20 17 Acne vulgaris: inflammatory grade III (chin and jawline face) 03/07/2014 04/18/2017 Dermatofibroma 03/07/2014 04/18/2017 Melanocytic nevi of trunk 03/07/20142016 Sebaceous hyperplasia 03/07/2014 04/18/2017 Milial cyst 03/07/2014 04/18/2017 History of irregular menstrual bleeding 12/04/19 14 04/18/2017 History of gastric bypass 09/17/20132016 Encounter for dietary counseling and surveillanc e 04/10/2013 04/18/2017 Type II or unspecified type diabetes mellitus without mention of complication, not stated as uncontrolled 03/30/2013 Neuralgia, neuritis, and radiculitis, unspecifie d 11/29/2012 10/03/2019 Pain in lower limb 10/16/2012 12/03/2013 Type II or unspecified type diabetes mellitus without mention of complication, not stated as uncontrolled 09/18/2012 Irregular menstrual cycle 03/03/20122013 Abdominal pain, left lower quadrant 03/03/2012 12/03/2013 Dysmenorrhea 03/03/2012 06/28/2019 Hyperpigmentation of skin: under eyelids 012 04/18/2017 Surgical Scar: skin of upper lip 10/14/2010 04/18/2017 Tinea corporis 08/25/2010 04/18/2017 Xerosis cutis 08/25/2010 04/18/2017 Obesity 07/15/2010 06/28/2019 Rosacea 04/24/2010 04/18/2017 Telangiectasias 04/24/2010 04/18/2017 Actinic Damage//Sun-Damaged Skin 04/24/2010 04/18/2017 Porokeratosis 04/24/2010 04/18/2017 Solar Lentigines 04/24/2010 04/18/2017 Congenital pigmented melanocytic nevus 0 04/18/2017 Melanocytic Nevus of Trunk: Back 04/24/2010 04/18/2017 Skin tag(s) 04/24/2010 04/18/2017 Viral warts, unspecified 04/24/2010 017 Edema 02/10/2010 04/18/2017 Unspecified sleep apnea 02/19/2008 12/04/19 14 Overview: CPAP @ 8cm sleep study 12/18/10 Morbid obesity 02/19/2008 12/03/2013 Postphlebetic syndrome with other complication 0 12/28/2007 04/18/2017 Rosacea 10/02/2007 04/24/2010 Scanty or infrequent menstruation 10/02/2007 12/03/2013 Dysmetabolic syndrome X 04/19/2007 12/04/19 14 Lumbago 08/09/2006 04/18/2017 Essential hypertension, benign 11/23/2005 1 documented as of this encounter (statuses as of 06/28/2022) [facility] History of Past illness Narrative* Problem Noted Date Resolved Date Strain of right knee and leg 05/18/201603/2017 Hypoproteinemia 04/14/2016 09/09/2016 Hyponatremia 04/14/2016 09/09/2016 Medication overuse headache 08/22/201403/2017 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 04/18/2017 Atypical nevus of flank 05/03/2014 04/18/20 17 Acne vulgaris: inflammatory grade III (chin and jawline face) 03/07/2014 04/18/2017 Dermatofibroma 03/07/2014 04/18/2017 Melanocytic nevi of trunk 03/07/20142016 Sebaceous hyperplasia 03/07/2014 04/18/2017 Milial cyst 03/07/2014 04/18/2017 History of irregular menstrual bleeding 12/04/19 14 04/18/2017 History of gastric bypass 09/17/20132016 Encounter for dietary counseling and surveillanc e 04/10/2013 04/18/2017 Type II or unspecified type diabetes mellitus without mention of complication, not stated as uncontrolled 03/30/2013 Neuralgia, neuritis, and radiculitis, unspecifie d 11/29/2012 10/03/2019 Pain in lower limb 10/16/2012 12/03/2013 Type II or unspecified type diabetes mellitus without mention of complication, not stated as uncontrolled 09/18/2012 Irregular menstrual cycle 03/03/20122013 Abdominal pain, left lower quadrant 03/03/2012 12/03/2013 Dysmenorrhea 03/03/2012 06/28/2019 Hyperpigmentation of skin: under eyelids 012 04/18/2017 Surgical Scar: skin of upper lip 10/14/2010 04/18/2017 Tinea corporis 08/25/2010 04/18/2017 Xerosis cutis 08/25/2010 04/18/2017 Obesity 07/15/2010 06/28/2019 Rosacea 04/24/2010 04/18/2017 Telangiectasias 04/24/2010 04/18/2017 Actinic Damage//Sun-Damaged Skin 04/24/2010 04/18/2017 Porokeratosis 04/24/2010 04/18/2017 Solar Lentigines 04/24/2010 04/18/2017 Congenital pigmented melanocytic nevus 0 04/18/2017 Melanocytic Nevus of Trunk: Back 04/24/2010 04/18/2017 Skin tag(s) 04/24/2010 04/18/2017 Viral warts, unspecified 04/24/2010 017 Edema 02/10/2010 04/18/2017 Unspecified sleep apnea 02/19/2008 12/04/19 14 Overview: CPAP @ 8cm sleep study 12/18/10 Morbid obesity 02/19/2008 12/03/2013 Postphlebetic syndrome with other complication 0 12/28/2007 04/18/2017 Rosacea 10/02/2007 04/24/2010 Scanty or infrequent menstruation 10/02/2007 12/03/2013 Dysmetabolic syndrome X 04/19/2007 12/04/19 14 Lumbago 08/09/2006 04/18/2017 Essential hypertension, benign 11/23/2005 1 documented as of this encounter (statuses as of 07/01/2022) [facility] History of Past illness Narrative* Problem Noted Date Resolved Date Strain of right knee and leg 05/18/201603/2017 Hypoproteinemia 04/14/2016 09/09/2016 Hyponatremia 04/14/2016 09/09/2016 Medication overuse headache 08/22/201407/2014 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 04/18/2017 Atypical nevus of flank 05/03/2014 04/18/20 Acne vulgaris: inflammatory grade III (chin and jawline face) 03/07/2014 04/18/2017 Dermatofibroma 03/07/2014 04/18/2017 Melanocytic nevi of trunk 03/07/20142016 Sebaceous hyperplasia 03/07/2014 04/18/2017 Milial cyst 03/07/2014 04/18/2017 History of irregular menstrual bleeding 12/04/19 14 04/18/2017 History of gastric bypass 09/17/20132016 Encounter for dietary counseling and surveillanc e 04/10/2013 04/18/2017 Type II or unspecified type diabetes mellitus without mention of complication, not stated as uncontrolled 03/30/2013 Neuralgia, neuritis, and radiculitis, unspecifie d 11/29/2012 10/03/2019 Pain in lower limb 10/16/2012 12/03/2013 Type II or unspecified type diabetes mellitus without mention of complication, not stated as uncontrolled 09/18/2012 Irregular menstrual cycle 03/03/20122013 Abdominal pain, left lower quadrant 03/03/2012 12/03/2013 Dysmenorrhea 03/03/2012 06/28/2019 Hyperpigmentation of skin: under eyelids 012 04/18/2017 Surgical Scar: skin of upper lip 10/14/2010 04/18/2017 Tinea corporis 08/25/2010 04/18/2017 Xerosis cutis 08/25/2010 04/18/2017 Obesity 07/15/2010 06/28/2019 Rosacea 04/24/2010 04/18/2017 Telangiectasias 04/24/2010 04/18/2017 Actinic Damage//Sun-Damaged Skin 04/24/2010 04/18/2017 Porokeratosis 04/24/2010 04/18/2017 Solar Lentigines 04/24/2010 04/18/2017 Congenital pigmented melanocytic nevus 0 04/18/2017 Melanocytic Nevus of Trunk: Back 04/24/2010 04/18/2017 Skin tag(s) 04/24/2010 04/18/2017 Viral warts, unspecified 04/24/2010 017 Edema 02/10/2010 04/18/2017 Unspecified sleep apnea 02/19/2008 12/04/19 14 Overview: CPAP @ 8cm sleep study 12/18/10 Morbid obesity 02/19/2008 12/03/2013 Postphlebetic syndrome with other complication 0 12/28/2007 04/18/2017 Rosacea 10/02/2007 04/24/2010 Scanty or infrequent menstruation 10/02/2007 12/03/2013 Dysmetabolic syndrome X 04/19/2007 12/04/19 14 Lumbago 08/09/2006 04/18/2017 Essential hypertension, benign 11/23/2005 1 documented as of this encounter (statuses as of 07/13/2022) [facility] History of Past illness Narrative* Problem Noted Date Resolved Date Strain of right knee and leg 05/18/201603/2017 Hypoproteinemia 04/14/2016 09/09/2016 Hyponatremia 04/14/2016 09/09/2016 Medication overuse headache 08/22/2014 0803/2017 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 04/18/2017 Atypical nevus of flank 05/03/2014 04/18/20 17 Acne vulgaris: inflammatory grade III (chin and jawline face) 03/07/2014 04/18/2017 Dermatofibroma 03/07/2014 04/18/2017 Melanocytic nevi of trunk 03/07/20142016 Sebaceous hyperplasia 03/07/2014 04/18/2017 Milial cyst 03/07/2014 04/18/2017 History of irregular menstrual bleeding 12/04/19 14 04/18/2017 History of gastric bypass 09/17/20132016 Encounter for dietary counseling and surveillanc e 04/10/2013 04/18/2017 Type II or unspecified type diabetes mellitus without mention of complication, not stated as uncontrolled 03/30/2013 Neuralgia, neuritis, and radiculitis, unspecifie d 11/29/2012 10/03/2019 Pain in lower limb 10/16/2012 12/03/2013 Type II or unspecified type diabetes mellitus without mention of complication, not stated as uncontrolled 09/18/2012 Irregular menstrual cycle 03/03/20122013 Abdominal pain, left lower quadrant 03/03/2012 12/03/2013 Dysmenorrhea 03/03/2012 06/28/2019 Hyperpigmentation of skin: under eyelids 012 04/18/2017 Surgical Scar: skin of upper lip 10/14/2010 04/18/2017 Tinea corporis 08/25/2010 04/18/2017 Xerosis cutis 08/25/2010 04/18/2017 Obesity 07/15/2010 06/28/2019 Rosacea 04/24/2010 04/18/2017 Telangiectasias 04/24/2010 04/18/2017 Actinic Damage//Sun-Damaged Skin 04/24/2010 04/18/2017 Porokeratosis 04/24/2010 04/18/2017 Solar Lentigines 04/24/2010 04/18/2017 Congenital pigmented melanocytic nevus 0 04/18/2017 Melanocytic Nevus of Trunk: Back 04/24/2010 04/18/2017 Skin tag(s) 04/24/2010 04/18/2017 Viral warts, unspecified 04/24/2010 017 Edema 02/10/2010 04/18/2017 Unspecified sleep apnea 02/19/2008 12/04/19 14 Overview: CPAP @ 8cm sleep study 12/18/10 Morbid obesity 02/19/2008 12/03/2013 Postphlebetic syndrome with other complication 0 12/28/2007 04/18/2017 Rosacea 10/02/2007 04/24/2010 Scanty or infrequent menstruation 10/02/2007 12/03/2013 Dysmetabolic syndrome X 04/19/2007 12/04/19 14 Lumbago 08/09/2006 04/18/2017 Essential hypertension, benign 11/23/2005 1 documented as of this encounter (statuses as of 07/14/2022) [facility] History of Past illness Narrative* Problem Noted Date Resolved Date Strain of right knee and leg 05/18/201603/2017 Hypoproteinemia 04/14/2016 09/09/2016 Hyponatremia 04/14/2016 09/09/2016 Medication overuse headache 08/22/201403/2017 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 04/18/2017 Atypical nevus of flank 05/03/2014 04/18/20 Acne vulgaris: inflammatory grade III (chin and jawline face) 03/07/2014 04/18/2017 Dermatofibroma 03/07/2014 04/18/2017 Melanocytic nevi of trunk 03/07/20142016 Sebaceous hyperplasia 03/07/2014 04/18/2017 Milial cyst 03/07/2014 04/18/2017 History of irregular menstrual bleeding 12/04/19 14 04/18/2017 History of gastric bypass 09/17/20132016 Encounter for dietary counseling and surveillanc e 04/10/2013 04/18/2017 Type II or unspecified type diabetes mellitus without mention of complication, not stated as uncontrolled 03/30/2013 Neuralgia, neuritis, and radiculitis, unspecifie d 11/29/2012 10/03/2019 Pain in lower limb 10/16/2012 12/03/2013 Type II or unspecified type diabetes mellitus without mention of complication, not stated as uncontrolled 09/18/2012 Irregular menstrual cycle 03/03/20122013 Abdominal pain, left lower quadrant 03/03/2012 12/03/2013 Dysmenorrhea 03/03/2012 06/28/2019 Hyperpigmentation of skin: under eyelids 012 04/18/2017 Surgical Scar: skin of upper lip 10/14/2010 04/18/2017 Tinea corporis 08/25/2010 04/18/2017 Xerosis cutis 08/25/2010 04/18/2017 Obesity 07/15/2010 06/28/2019 Rosacea 04/24/2010 04/18/2017 Telangiectasias 04/24/2010 04/18/2017 Actinic Damage//Sun-Damaged Skin 04/24/2010 04/18/2017 Porokeratosis 04/24/2010 04/18/2017 Solar Lentigines 04/24/2010 04/18/2017 Congenital pigmented melanocytic nevus 0 04/18/2017 Melanocytic Nevus of Trunk: Back 04/24/2010 04/18/2017 Skin tag(s) 04/24/2010 04/18/2017 Viral warts, unspecified 04/24/2010 017 Edema 02/10/2010 04/18/2017 Unspecified sleep apnea 02/19/2008 12/04/19 14 Overview: CPAP @ 8cm sleep study 12/18/10 Morbid obesity 02/19/2008 12/03/2013 Postphlebetic syndrome with other complication 0 12/28/2007 04/18/2017 Rosacea 10/02/2007 04/24/2010 Scanty or infrequent menstruation 10/02/2007 12/03/2013 Dysmetabolic syndrome X 04/19/2007 12/04/19 14 Lumbago 08/09/2006 04/18/2017 Essential hypertension, benign 11/23/2005 1 documented as of this encounter (statuses as of 08/17/2022) [facility] History of Past illness Narrative* Problem Noted Date Resolved Date Strain of right knee and leg 05/18/201603/2017 Hypoproteinemia 04/14/2016 09/09/2016 Hyponatremia 04/14/2016 09/09/2016 Medication overuse headache 08/22/201403/2017 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 04/18/2017 Atypical nevus of flank 05/03/2014 04/18/20 17 Acne vulgaris: inflammatory grade III (chin and jawline face) 03/07/2014 04/18/2017 Dermatofibroma 03/07/2014 04/18/2017 Melanocytic nevi of trunk 03/07/20142016 Sebaceous hyperplasia 03/07/2014 04/18/2017 Milial cyst 03/07/2014 04/18/2017 History of irregular menstrual bleeding 12/04/19 14 04/18/2017 History of gastric bypass 09/17/20132016 Encounter for dietary counseling and surveillanc e 04/10/2013 04/18/2017 Type II or unspecified type diabetes mellitus without mention of complication, not stated as uncontrolled 03/30/2013 Neuralgia, neuritis, and radiculitis, unspecifie d 11/29/2012 10/03/2019 Pain in lower limb 10/16/2012 12/03/2013 Type II or unspecified type diabetes mellitus without mention of complication, not stated as uncontrolled 09/18/2012 Irregular menstrual cycle 03/03/20122013 Abdominal pain, left lower quadrant 03/03/2012 12/03/2013 Dysmenorrhea 03/03/2012 06/28/2019 Hyperpigmentation of skin: under eyelids 012 04/18/2017 Surgical Scar: skin of upper lip 10/14/2010 04/18/2017 Tinea corporis 08/25/2010 04/18/2017 Xerosis cutis 08/25/2010 04/18/2017 Obesity 07/15/2010 06/28/2019 Rosacea 04/24/2010 04/18/2017 Telangiectasias 04/24/2010 04/18/2017 Actinic Damage//Sun-Damaged Skin 04/24/2010 04/18/2017 Porokeratosis 04/24/2010 04/18/2017 Solar Lentigines 04/24/2010 04/18/2017 Congenital pigmented melanocytic nevus 0 04/18/2017 Melanocytic Nevus of Trunk: Back 04/24/2010 04/18/2017 Skin tag(s) 04/24/2010 04/18/2017 Viral warts, unspecified 04/24/2010 017 Edema 02/10/2010 04/18/2017 Unspecified sleep apnea 02/19/2008 12/04/19 14 Overview: CPAP @ 8cm sleep study 12/18/10 Morbid obesity 02/19/2008 12/03/2013 Postphlebetic syndrome with other complication 0 12/28/2007 04/18/2017 Rosacea 10/02/2007 04/24/2010 Scanty or infrequent menstruation 10/02/2007 12/03/2013 Dysmetabolic syndrome X 04/19/2007 12/04/19 14 Lumbago 08/09/2006 04/18/2017 Essential hypertension, benign 11/23/2005 1 documented as of this encounter (statuses as of 08/24/2022) [facility] History of Past illness Narrative* Problem Noted Date Resolved Date Strain of right knee and leg 05/18/201603/2017 Hypoproteinemia 04/14/2016 09/09/2016 Hyponatremia 04/14/2016 09/09/2016 Medication overuse headache 08/22/201403/2017 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 04/18/2017 Atypical nevus of flank 05/03/2014 04/18/20 Acne vulgaris: inflammatory grade III (chin and jawline face) 03/07/2014 04/18/2017 Dermatofibroma 03/07/2014 04/18/2017 Melanocytic nevi of trunk 03/07/20142016 Sebaceous hyperplasia 03/07/2014 04/18/2017 Milial cyst 03/07/2014 04/18/2017 History of irregular menstrual bleeding 12/04/19 14 04/18/2017 History of gastric bypass 09/17/20132016 Encounter for dietary counseling and surveillanc e 04/10/2013 04/18/2017 Type II or unspecified type diabetes mellitus without mention of complication, not stated as uncontrolled 03/30/2013 Neuralgia, neuritis, and radiculitis, unspecifie d 11/29/2012 10/03/2019 Pain in lower limb 10/16/2012 12/03/2013 Type II or unspecified type diabetes mellitus without mention of complication, not stated as uncontrolled 09/18/2012 Irregular menstrual cycle 03/03/20122013 Abdominal pain, left lower quadrant 03/03/2012 12/03/2013 Dysmenorrhea 03/03/2012 06/28/2019 Hyperpigmentation of skin: under eyelids 012 04/18/2017 Surgical Scar: skin of upper lip 10/14/2010 04/18/2017 Tinea corporis 08/25/2010 04/18/2017 Xerosis cutis 08/25/2010 04/18/2017 Obesity 07/15/2010 06/28/2019 Rosacea 04/24/2010 04/18/2017 Telangiectasias 04/24/2010 04/18/2017 Actinic Damage//Sun-Damaged Skin 04/24/2010 04/18/2017 Porokeratosis 04/24/2010 04/18/2017 Solar Lentigines 04/24/2010 04/18/2017 Congenital pigmented melanocytic nevus 0 04/18/2017 Melanocytic Nevus of Trunk: Back 04/24/2010 04/18/2017 Skin tag(s) 04/24/2010 04/18/2017 Viral warts, unspecified 04/24/2010 017 Edema 02/10/2010 04/18/2017 Unspecified sleep apnea 02/19/2008 12/04/19 14 Overview: CPAP @ 8cm sleep study 12/18/10 Morbid obesity 02/19/2008 12/03/2013 Postphlebetic syndrome with other complication 0 12/28/2007 04/18/2017 Rosacea 10/02/2007 04/24/2010 Scanty or infrequent menstruation 10/02/2007 12/03/2013 Dysmetabolic syndrome X 04/19/2007 12/04/19 14 Lumbago 08/09/2006 04/18/2017 Essential hypertension, benign 11/23/2005 1 documented as of this encounter (statuses as of 08/27/2022) [facility] History of Past illness Narrative* Problem Noted Date Resolved Date Strain of right knee and leg 05/18/201603/2017 Hypoproteinemia 04/14/2016 09/09/2016 Hyponatremia 04/14/2016 09/09/2016 Medication overuse headache 08/22/2014 0803/2017 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 04/18/2017 Atypical nevus of flank 05/03/2014 04/18/20 17 Acne vulgaris: inflammatory grade III (chin and jawline face) 03/07/2014 04/18/2017 Dermatofibroma 03/07/2014 04/18/2017 Melanocytic nevi of trunk 03/07/20142016 Sebaceous hyperplasia 03/07/2014 04/18/2017 Milial cyst 03/07/2014 04/18/2017 History of irregular menstrual bleeding 12/04/19 14 04/18/2017 History of gastric bypass 09/17/20132016 Encounter for dietary counseling and surveillanc e 04/10/2013 04/18/2017 Type II or unspecified type diabetes mellitus without mention of complication, not stated as uncontrolled 03/30/2013 Neuralgia, neuritis, and radiculitis, unspecifie d 11/29/2012 10/03/2019 Pain in lower limb 10/16/2012 12/03/2013 Type II or unspecified type diabetes mellitus without mention of complication, not stated as uncontrolled 09/18/2012 Irregular menstrual cycle 03/03/20122013 Abdominal pain, left lower quadrant 03/03/2012 12/03/2013 Dysmenorrhea 03/03/2012 06/28/2019 Hyperpigmentation of skin: under eyelids 012 04/18/2017 Surgical Scar: skin of upper lip 10/14/2010 04/18/2017 Tinea corporis 08/25/2010 04/18/2017 Xerosis cutis 08/25/2010 04/18/2017 Obesity 07/15/2010 06/28/2019 Rosacea 04/24/2010 04/18/2017 Telangiectasias 04/24/2010 04/18/2017 Actinic Damage//Sun-Damaged Skin 04/24/2010 04/18/2017 Porokeratosis 04/24/2010 04/18/2017 Solar Lentigines 04/24/2010 04/18/2017 Congenital pigmented melanocytic nevus 0 04/18/2017 Melanocytic Nevus of Trunk: Back 04/24/2010 04/18/2017 Skin tag(s) 04/24/2010 04/18/2017 Viral warts, unspecified 04/24/2010 017 Edema 02/10/2010 04/18/2017 Unspecified sleep apnea 02/19/2008 12/04/19 14 Overview: CPAP @ 8cm sleep study 12/18/10 Morbid obesity 02/19/2008 12/03/2013 Postphlebetic syndrome with other complication 0 12/28/2007 04/18/2017 Rosacea 10/02/2007 04/24/2010 Scanty or infrequent menstruation 10/02/2007 12/03/2013 Dysmetabolic syndrome X 04/19/2007 12/04/19 14 Lumbago 08/09/2006 04/18/2017 Essential hypertension, benign 11/23/2005 1 documented as of this encounter (statuses as of 09/03/2022) [facility] History of Past illness Narrative* Problem Noted Date Resolved Date Strain of right knee and leg 05/18/201603/2017 Hypoproteinemia 04/14/2016 09/09/2016 Hyponatremia 04/14/2016 09/09/2016 Medication overuse headache 08/22/201403/2017 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 04/18/2017 Atypical nevus of flank 05/03/2014 04/18/20 17 Acne vulgaris: inflammatory grade III (chin and jawline face) 03/07/2014 04/18/2017 Dermatofibroma 03/07/2014 04/18/2017 Melanocytic nevi of trunk 03/07/20142016 Sebaceous hyperplasia 03/07/2014 04/18/2017 Milial cyst 03/07/2014 04/18/2017 History of irregular menstrual bleeding 12/04/19 14 04/18/2017 History of gastric bypass 09/17/20132016 Encounter for dietary counseling and surveillanc e 04/10/2013 04/18/2017 Type II or unspecified type diabetes mellitus without mention of complication, not stated as uncontrolled 03/30/2013 Neuralgia, neuritis, and radiculitis, unspecifie d 11/29/2012 10/03/2019 Pain in lower limb 10/16/2012 12/03/2013 Type II or unspecified type diabetes mellitus without mention of complication, not stated as uncontrolled 09/18/2012 Irregular menstrual cycle 03/03/20122013 Abdominal pain, left lower quadrant 03/03/2012 12/03/2013 Dysmenorrhea 03/03/2012 06/28/2019 Hyperpigmentation of skin: under eyelids 012 04/18/2017 Surgical Scar: skin of upper lip 10/14/2010 04/18/2017 Tinea corporis 08/25/2010 04/18/2017 Xerosis cutis 08/25/2010 04/18/2017 Obesity 07/15/2010 06/28/2019 Rosacea 04/24/2010 04/18/2017 Telangiectasias 04/24/2010 04/18/2017 Actinic Damage//Sun-Damaged Skin 04/24/2010 04/18/2017 Porokeratosis 04/24/2010 04/18/2017 Solar Lentigines 04/24/2010 04/18/2017 Congenital pigmented melanocytic nevus 0 04/18/2017 Melanocytic Nevus of Trunk: Back 04/24/2010 04/18/2017 Skin tag(s) 04/24/2010 04/18/2017 Viral warts, unspecified 04/24/2010 017 Edema 02/10/2010 04/18/2017 Unspecified sleep apnea 02/19/2008 12/04/19 14 Overview: CPAP @ 8cm sleep study 12/18/10 Morbid obesity 02/19/2008 12/03/2013 Postphlebetic syndrome with other complication 0 12/28/2007 04/18/2017 Rosacea 10/02/2007 04/24/2010 Scanty or infrequent menstruation 10/02/2007 12/03/2013 Dysmetabolic syndrome X 04/19/2007 12/04/19 14 Lumbago 08/09/2006 04/18/2017 Essential hypertension, benign 11/23/2005 1 documented as of this encounter (statuses as of 09/18/2022) [facility]09-[facility]2016 History of Past illness Narrative* Problem Noted Date Resolved Date Strain of right knee and leg 05/18/201603/2017 Hypoproteinemia 04/14/2016 09/09/2016 Hyponatremia 04/14/2016 09/09/2016 Medication overuse headache 08/22/2014 0803/2017 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 04/18/2017 Atypical nevus of flank 05/03/2014 04/18/20 17 Acne vulgaris: inflammatory grade III (chin and jawline face) 03/07/2014 04/18/2017 Dermatofibroma 03/07/2014 04/18/2017 Melanocytic nevi of trunk 03/07/20142016 Sebaceous hyperplasia 03/07/2014 04/18/2017 Milial cyst 03/07/2014 04/18/2017 History of irregular menstrual bleeding 12/04/19 14 04/18/2017 History of gastric bypass 09/17/20132016 Encounter for dietary counseling and surveillanc e 04/10/2013 04/18/2017 Type II or unspecified type diabetes mellitus without mention of complication, not stated as uncontrolled 03/30/2013 Neuralgia, neuritis, and radiculitis, unspecifie d 11/29/2012 10/03/2019 Pain in lower limb 10/16/2012 12/03/2013 Type II or unspecified type diabetes mellitus without mention of complication, not stated as uncontrolled 09/18/2012 Irregular menstrual cycle 03/03/20122013 Abdominal pain, left lower quadrant 03/03/2012 12/03/2013 Dysmenorrhea 03/03/2012 06/28/2019 Hyperpigmentation of skin: under eyelids 012 04/18/2017 Surgical Scar: skin of upper lip 10/14/2010 04/18/2017 Tinea corporis 08/25/2010 04/18/2017 Xerosis cutis 08/25/2010 04/18/2017 Obesity 07/15/2010 06/28/2019 Rosacea 04/24/2010 04/18/2017 Telangiectasias 04/24/2010 04/18/2017 Actinic Damage//Sun-Damaged Skin 04/24/2010 04/18/2017 Porokeratosis 04/24/2010 04/18/2017 Solar Lentigines 04/24/2010 04/18/2017 Congenital pigmented melanocytic nevus 0 04/18/2017 Melanocytic Nevus of Trunk: Back 04/24/2010 04/18/2017 Skin tag(s) 04/24/2010 04/18/2017 Viral warts, unspecified 04/24/2010 017 Edema 02/10/2010 04/18/2017 Unspecified sleep apnea 02/19/2008 12/04/19 14 Overview: CPAP @ 8cm sleep study 12/18/10 Morbid obesity 02/19/2008 12/03/2013 Postphlebetic syndrome with other complication 0 12/28/2007 04/18/2017 Rosacea 10/02/2007 04/24/2010 Scanty or infrequent menstruation 10/02/2007 12/03/2013 Dysmetabolic syndrome X 04/19/2007 12/04/19 14 Lumbago 08/09/2006 04/18/2017 Essential hypertension, benign 11/23/2005 1 documented as of this encounter (statuses as of 10/06/2022) [facility] History of Past illness Narrative* Problem Noted Date Resolved Date Strain of right knee and leg 05/18/201603/2017 Hypoproteinemia 04/14/2016 09/09/2016 Hyponatremia 04/14/2016 09/09/2016 Medication overuse headache 08/22/201403/2017 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 04/18/2017 Atypical nevus of flank 05/03/2014 04/18/20 17 Acne vulgaris: inflammatory grade III (chin and jawline face) 03/07/2014 04/18/2017 Dermatofibroma 03/07/2014 04/18/2017 Melanocytic nevi of trunk 03/07/20142016 Sebaceous hyperplasia 03/07/2014 04/18/2017 Milial cyst 03/07/2014 04/18/2017 History of irregular menstrual bleeding 12/04/19 14 04/18/2017 History of gastric bypass 09/17/20132016 Encounter for dietary counseling and surveillanc e 04/10/2013 04/18/2017 Type II or unspecified type diabetes mellitus without mention of complication, not stated as uncontrolled 03/30/2013 Neuralgia, neuritis, and radiculitis, unspecifie d 11/29/2012 10/03/2019 Pain in lower limb 10/16/2012 12/03/2013 Type II or unspecified type diabetes mellitus without mention of complication, not stated as uncontrolled 09/18/2012 Irregular menstrual cycle 03/03/20122013 Abdominal pain, left lower quadrant 03/03/2012 12/03/2013 Dysmenorrhea 03/03/2012 06/28/2019 Hyperpigmentation of skin: under eyelids 012 04/18/2017 Surgical Scar: skin of upper lip 10/14/2010 04/18/2017 Tinea corporis 08/25/2010 04/18/2017 Xerosis cutis 08/25/2010 04/18/2017 Obesity 07/15/2010 06/28/2019 Rosacea 04/24/2010 04/18/2017 Telangiectasias 04/24/2010 04/18/2017 Actinic Damage//Sun-Damaged Skin 04/24/2010 04/18/2017 Porokeratosis 04/24/2010 04/18/2017 Solar Lentigines 04/24/2010 04/18/2017 Congenital pigmented melanocytic nevus 0 04/18/2017 Melanocytic Nevus of Trunk: Back 04/24/2010 04/18/2017 Skin tag(s) 04/24/2010 04/18/2017 Viral warts, unspecified 04/24/2010 017 Edema 02/10/2010 04/18/2017 Unspecified sleep apnea 02/19/2008 12/04/19 14 Overview: CPAP @ 8cm sleep study 12/18/10 Morbid obesity 02/19/2008 12/03/2013 Postphlebetic syndrome with other complication 0 12/28/2007 04/18/2017 Rosacea 10/02/2007 04/24/2010 Scanty or infrequent menstruation 10/02/2007 12/03/2013 Dysmetabolic syndrome X 04/19/2007 12/04/19 14 Lumbago 08/09/2006 04/18/2017 Essential hypertension, benign 11/23/2005 1 documented as of this encounter (statuses as of 10/06/2022) [facility] History of Past illness Narrative* Problem Noted Date Resolved Date Strain of right knee and leg 05/18/201603/2017 Hypoproteinemia 04/14/2016 09/09/2016 Hyponatremia 04/14/2016 09/09/2016 Medication overuse headache 08/22/201403/2017 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 04/18/2017 Atypical nevus of flank 05/03/2014 04/18/20 17 Acne vulgaris: inflammatory grade III (chin and jawline face) 03/07/2014 04/18/2017 Dermatofibroma 03/07/2014 04/18/2017 Melanocytic nevi of trunk 03/07/20142016 Sebaceous hyperplasia 03/07/2014 04/18/2017 Milial cyst 03/07/2014 04/18/2017 History of irregular menstrual bleeding 12/04/19 14 04/18/2017 History of gastric bypass 09/17/20132016 Encounter for dietary counseling and surveillanc e 04/10/2013 04/18/2017 Type II or unspecified type diabetes mellitus without mention of complication, not stated as uncontrolled 03/30/2013 Neuralgia, neuritis, and radiculitis, unspecifie d 11/29/2012 10/03/2019 Pain in lower limb 10/16/2012 12/03/2013 Type II or unspecified type diabetes mellitus without mention of complication, not stated as uncontrolled 09/18/2012 Irregular menstrual cycle 03/03/20122013 Abdominal pain, left lower quadrant 03/03/2012 12/03/2013 Dysmenorrhea 03/03/2012 06/28/2019 Hyperpigmentation of skin: under eyelids 012 04/18/2017 Surgical Scar: skin of upper lip 10/14/2010 04/18/2017 Tinea corporis 08/25/2010 04/18/2017 Xerosis cutis 08/25/2010 04/18/2017 Obesity 07/15/2010 06/28/2019 Rosacea 04/24/2010 04/18/2017 Telangiectasias 04/24/2010 04/18/2017 Actinic Damage//Sun-Damaged Skin 04/24/2010 04/18/2017 Porokeratosis 04/24/2010 04/18/2017 Solar Lentigines 04/24/2010 04/18/2017 Congenital pigmented melanocytic nevus 0 04/18/2017 Melanocytic Nevus of Trunk: Back 04/24/2010 04/18/2017 Skin tag(s) 04/24/2010 04/18/2017 Viral warts, unspecified 04/24/2010 017 Edema 02/10/2010 04/18/2017 Unspecified sleep apnea 02/19/2008 12/04/19 14 Overview: CPAP @ 8cm sleep study 12/18/10 Morbid obesity 02/19/2008 12/03/2013 Postphlebetic syndrome with other complication 0 12/28/2007 04/18/2017 Rosacea 10/02/2007 04/24/2010 Scanty or infrequent menstruation 10/02/2007 12/03/2013 Dysmetabolic syndrome X 04/19/2007 12/04/19 14 Lumbago 08/09/2006 04/18/2017 Essential hypertension, benign 11/23/2005 1 documented as of this encounter (statuses as of 10/13/2022) [facility] History of Past illness Narrative* Problem Noted Date Resolved Date Strain of right knee and leg 05/18/201603/2017 Hypoproteinemia 04/14/2016 09/09/2016 Hyponatremia 04/14/2016 09/09/2016 Medication overuse headache 08/22/201403/2017 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 04/18/2017 Atypical nevus of flank 05/03/2014 04/18/20 17 Acne vulgaris: inflammatory grade III (chin and jawline face) 03/07/2014 04/18/2017 Dermatofibroma 03/07/2014 04/18/2017 Melanocytic nevi of trunk 03/07/20142016 Sebaceous hyperplasia 03/07/2014 04/18/2017 Milial cyst 03/07/2014 04/18/2017 History of irregular menstrual bleeding 12/04/19 14 04/18/2017 History of gastric bypass 09/17/20132016 Encounter for dietary counseling and surveillanc e 04/10/2013 04/18/2017 Type II or unspecified type diabetes mellitus without mention of complication, not stated as uncontrolled 03/30/2013 Neuralgia, neuritis, and radiculitis, unspecifie d 11/29/2012 10/03/2019 Pain in lower limb 10/16/2012 12/03/2013 Type II or unspecified type diabetes mellitus without mention of complication, not stated as uncontrolled 09/18/2012 Irregular menstrual cycle 03/03/20122013 Abdominal pain, left lower quadrant 03/03/2012 12/03/2013 Dysmenorrhea 03/03/2012 06/28/2019 Hyperpigmentation of skin: under eyelids 012 04/18/2017 Surgical Scar: skin of upper lip 10/14/2010 04/18/2017 Tinea corporis 08/25/2010 04/18/2017 Xerosis cutis 08/25/2010 04/18/2017 Obesity 07/15/2010 06/28/2019 Rosacea 04/24/2010 04/18/2017 Telangiectasias 04/24/2010 04/18/2017 Actinic Damage//Sun-Damaged Skin 04/24/2010 04/18/2017 Porokeratosis 04/24/2010 04/18/2017 Solar Lentigines 04/24/2010 04/18/2017 Congenital pigmented melanocytic nevus 0 04/18/2017 Melanocytic Nevus of Trunk: Back 04/24/2010 04/18/2017 Skin tag(s) 04/24/2010 04/18/2017 Viral warts, unspecified 04/24/2010 017 Edema 02/10/2010 04/18/2017 Unspecified sleep apnea 02/19/2008 12/04/19 14 Overview: CPAP @ 8cm sleep study 12/18/10 Morbid obesity 02/19/2008 12/03/2013 Postphlebetic syndrome with other complication 0 12/28/2007 04/18/2017 Rosacea 10/02/2007 04/24/2010 Scanty or infrequent menstruation 10/02/2007 12/03/2013 Dysmetabolic syndrome X 04/19/2007 12/04/19 14 Lumbago 08/09/2006 04/18/2017 Essential hypertension, benign 11/23/2005 1 documented as of this encounter (statuses as of 10/20/2022) [facility] History of Past illness Narrative* Problem Noted Date Resolved Date Strain of right knee and leg 05/18/201603/2017 Hypoproteinemia 04/14/2016 09/09/2016 Hyponatremia 04/14/2016 09/09/2016 Medication overuse headache 08/22/201403/2017 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 04/18/2017 Atypical nevus of flank 05/03/2014 04/18/20 17 Acne vulgaris: inflammatory grade III (chin and jawline face) 03/07/2014 04/18/2017 Dermatofibroma 03/07/2014 04/18/2017 Melanocytic nevi of trunk 03/07/20142016 Sebaceous hyperplasia 03/07/2014 04/18/2017 Milial cyst 03/07/2014 04/18/2017 History of irregular menstrual bleeding 12/04/19 14 04/18/2017 History of gastric bypass 09/17/20132016 Encounter for dietary counseling and surveillanc e 04/10/2013 04/18/2017 Type II or unspecified type diabetes mellitus without mention of complication, not stated as uncontrolled 03/30/2013 Neuralgia, neuritis, and radiculitis, unspecifie d 11/29/2012 10/03/2019 Pain in lower limb 10/16/2012 12/03/2013 Type II or unspecified type diabetes mellitus without mention of complication, not stated as uncontrolled 09/18/2012 Irregular menstrual cycle 03/03/20122013 Abdominal pain, left lower quadrant 03/03/2012 12/03/2013 Dysmenorrhea 03/03/2012 06/28/2019 Hyperpigmentation of skin: under eyelids 012 04/18/2017 Surgical Scar: skin of upper lip 10/14/2010 04/18/2017 Tinea corporis 08/25/2010 04/18/2017 Xerosis cutis 08/25/2010 04/18/2017 Obesity 07/15/2010 06/28/2019 Rosacea 04/24/2010 04/18/2017 Telangiectasias 04/24/2010 04/18/2017 Actinic Damage//Sun-Damaged Skin 04/24/2010 04/18/2017 Porokeratosis 04/24/2010 04/18/2017 Solar Lentigines 04/24/2010 04/18/2017 Congenital pigmented melanocytic nevus 0 04/18/2017 Melanocytic Nevus of Trunk: Back 04/24/2010 04/18/2017 Skin tag(s) 04/24/2010 04/18/2017 Viral warts, unspecified 04/24/2010 017 Edema 02/10/2010 04/18/2017 Unspecified sleep apnea 02/19/2008 12/04/19 14 Overview: CPAP @ 8cm sleep study 12/18/10 Morbid obesity 02/19/2008 12/03/2013 Postphlebetic syndrome with other complication 0 12/28/2007 04/18/2017 Rosacea 10/02/2007 04/24/2010 Scanty or infrequent menstruation 10/02/2007 12/03/2013 Dysmetabolic syndrome X 04/19/2007 12/04/19 14 Lumbago 08/09/2006 04/18/2017 Essential hypertension, benign 11/23/2005 1 documented as of this encounter (statuses as of 10/20/2022) [facility] History of Past illness Narrative* Problem Noted Date Resolved Date Strain of right knee and leg 05/18/201603/2017 Hypoproteinemia 04/14/2016 09/09/2016 Hyponatremia 04/14/2016 09/09/2016 Medication overuse headache 08/22/201403/2017 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 04/18/2017 Atypical nevus of flank 05/03/2014 04/18/20 17 Acne vulgaris: inflammatory grade III (chin and jawline face) 03/07/2014 04/18/2017 Dermatofibroma 03/07/2014 04/18/2017 Melanocytic nevi of trunk 03/07/20142016 Sebaceous hyperplasia 03/07/2014 04/18/2017 Milial cyst 03/07/2014 04/18/2017 History of irregular menstrual bleeding 12/04/19 14 04/18/2017 History of gastric bypass 09/17/20132016 Encounter for dietary counseling and surveillanc e 04/10/2013 04/18/2017 Type II or unspecified type diabetes mellitus without mention of complication, not stated as uncontrolled 03/30/2013 Neuralgia, neuritis, and radiculitis, unspecifie d 11/29/2012 10/03/2019 Pain in lower limb 10/16/2012 12/03/2013 Type II or unspecified type diabetes mellitus without mention of complication, not stated as uncontrolled 09/18/2012 Irregular menstrual cycle 03/03/20122013 Abdominal pain, left lower quadrant 03/03/2012 12/03/2013 Dysmenorrhea 03/03/2012 06/28/2019 Hyperpigmentation of skin: under eyelids 012 04/18/2017 Surgical Scar: skin of upper lip 10/14/2010 04/18/2017 Tinea corporis 08/25/2010 04/18/2017 Xerosis cutis 08/25/2010 04/18/2017 Obesity 07/15/2010 06/28/2019 Rosacea 04/24/2010 04/18/2017 Telangiectasias 04/24/2010 04/18/2017 Actinic Damage//Sun-Damaged Skin 04/24/2010 04/18/2017 Porokeratosis 04/24/2010 04/18/2017 Solar Lentigines 04/24/2010 04/18/2017 Congenital pigmented melanocytic nevus 0 04/18/2017 Melanocytic Nevus of Trunk: Back 04/24/2010 04/18/2017 Skin tag(s) 04/24/2010 04/18/2017 Viral warts, unspecified 04/24/2010 017 Edema 02/10/2010 04/18/2017 Unspecified sleep apnea 02/19/2008 12/04/19 14 Overview: CPAP @ 8cm sleep study 12/18/10 Morbid obesity 02/19/2008 12/03/2013 Postphlebetic syndrome with other complication 0 12/28/2007 04/18/2017 Rosacea 10/02/2007 04/24/2010 Scanty or infrequent menstruation 10/02/2007 12/03/2013 Dysmetabolic syndrome X 04/19/2007 12/04/19 14 Lumbago 08/09/2006 04/18/2017 Essential hypertension, benign 11/23/2005 1 documented as of this encounter (statuses as of 11/03/2022) [facility] History of Past illness Narrative* Problem Noted Date Resolved Date Strain of right knee and leg 05/18/201603/2017 Hypoproteinemia 04/14/2016 09/09/2016 Hyponatremia 04/14/2016 09/09/2016 Medication overuse headache 08/22/2014 08/0 03/2017 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 04/18/2017 Atypical nevus of flank 05/03/2014 04/18/20 17 Acne vulgaris: inflammatory grade III (chin and jawline face) 03/07/2014 04/18/2017 Dermatofibroma 03/07/2014 04/18/2017 Melanocytic nevi of trunk 03/07/20142016 Sebaceous hyperplasia 03/07/2014 04/18/2017 Milial cyst 03/07/2014 04/18/2017 History of irregular menstrual bleeding 12/04/19 14 04/18/2017 History of gastric bypass 09/17/20132016 Encounter for dietary counseling and surveillanc e 04/10/2013 04/18/2017 Type II or unspecified type diabetes mellitus without mention of complication, not stated as uncontrolled 03/30/2013 Neuralgia, neuritis, and radiculitis, unspecifie d 11/29/2012 10/03/2019 Pain in lower limb 10/16/2012 12/03/2013 Type II or unspecified type diabetes mellitus without mention of complication, not stated as uncontrolled 09/18/2012 Irregular menstrual cycle 03/03/20122013 Abdominal pain, left lower quadrant 03/03/2012 12/03/2013 Dysmenorrhea 03/03/2012 06/28/2019 Hyperpigmentation of skin: under eyelids 012 04/18/2017 Surgical Scar: skin of upper lip 10/14/2010 04/18/2017 Tinea corporis 08/25/2010 04/18/2017 Xerosis cutis 08/25/2010 04/18/2017 Obesity 07/15/2010 06/28/2019 Rosacea 04/24/2010 04/18/2017 Telangiectasias 04/24/2010 04/18/2017 Actinic Damage//Sun-Damaged Skin 04/24/2010 04/18/2017 Porokeratosis 04/24/2010 04/18/2017 Solar Lentigines 04/24/2010 04/18/2017 Congenital pigmented melanocytic nevus 0 04/18/2017 Melanocytic Nevus of Trunk: Back 04/24/2010 04/18/2017 Skin tag(s) 04/24/2010 04/18/2017 Viral warts, unspecified 04/24/2010 017 Edema 02/10/2010 04/18/2017 Unspecified sleep apnea 02/19/2008 12/04/19 14 Overview: CPAP @ 8cm sleep study 12/18/10 Morbid obesity 02/19/2008 12/03/2013 Postphlebetic syndrome with other complication 0 12/28/2007 04/18/2017 Rosacea 10/02/2007 04/24/2010 Scanty or infrequent menstruation 10/02/2007 12/03/2013 Dysmetabolic syndrome X 04/19/2007 12/04/19 14 Lumbago 08/09/2006 04/18/2017 Essential hypertension, benign 11/23/2005 1 documented as of this encounter (statuses as of 11/04/2022) [facility] History of Past illness Narrative* Problem Noted Date Resolved Date Strain of right knee and leg 05/18/201603/2017 Hypoproteinemia 04/14/2016 09/09/2016 Hyponatremia 04/14/2016 09/09/2016 Medication overuse headache 08/22/201403/2017 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 04/18/2017 Atypical nevus of flank 05/03/2014 04/18/20 17 Acne vulgaris: inflammatory grade III (chin and jawline face) 03/07/2014 04/18/2017 Dermatofibroma 03/07/2014 04/18/2017 Melanocytic nevi of trunk 03/07/20142016 Sebaceous hyperplasia 03/07/2014 04/18/2017 Milial cyst 03/07/2014 04/18/2017 History of irregular menstrual bleeding 12/04/19 14 04/18/2017 History of gastric bypass 09/17/20132016 Encounter for dietary counseling and surveillanc e 04/10/2013 04/18/2017 Type II or unspecified type diabetes mellitus without mention of complication, not stated as uncontrolled 03/30/2013 Neuralgia, neuritis, and radiculitis, unspecifie d 11/29/2012 10/03/2019 Pain in lower limb 10/16/2012 12/03/2013 Type II or unspecified type diabetes mellitus without mention of complication, not stated as uncontrolled 09/18/2012 Irregular menstrual cycle 03/03/20122013 Abdominal pain, left lower quadrant 03/03/2012 12/03/2013 Dysmenorrhea 03/03/2012 06/28/2019 Hyperpigmentation of skin: under eyelids 012 04/18/2017 Surgical Scar: skin of upper lip 10/14/2010 04/18/2017 Tinea corporis 08/25/2010 04/18/2017 Xerosis cutis 08/25/2010 04/18/2017 Obesity 07/15/2010 06/28/2019 Rosacea 04/24/2010 04/18/2017 Telangiectasias 04/24/2010 04/18/2017 Actinic Damage//Sun-Damaged Skin 04/24/2010 04/18/2017 Porokeratosis 04/24/2010 04/18/2017 Solar Lentigines 04/24/2010 04/18/2017 Congenital pigmented melanocytic nevus 0 04/18/2017 Melanocytic Nevus of Trunk: Back 04/24/2010 04/18/2017 Skin tag(s) 04/24/2010 04/18/2017 Viral warts, unspecified 04/24/2010 017 Edema 02/10/2010 04/18/2017 Unspecified sleep apnea 02/19/2008 12/04/19 14 Overview: CPAP @ 8cm sleep study 12/18/10 Morbid obesity 02/19/2008 12/03/2013 Postphlebetic syndrome with other complication 0 12/28/2007 04/18/2017 Rosacea 10/02/2007 04/24/2010 Scanty or infrequent menstruation 10/02/2007 12/03/2013 Dysmetabolic syndrome X 04/19/2007 12/04/19 14 Lumbago 08/09/2006 04/18/2017 Essential hypertension, benign 11/23/2005 1 documented as of this encounter (statuses as of 11/05/2022) [facility] History of Past illness Narrative* Problem Noted Date Resolved Date Strain of right knee and leg 05/18/201603/2017 Hypoproteinemia 04/14/2016 09/09/2016 Hyponatremia 04/14/2016 09/09/2016 Medication overuse headache 08/22/2014 08/03/2017 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 04/18/2017 Atypical nevus of flank 05/03/2014 04/18/20 17 Acne vulgaris: inflammatory grade III (chin and jawline face) 03/07/2014 04/18/2017 Dermatofibroma 03/07/2014 04/18/2017 Melanocytic nevi of trunk 03/07/20142016 Sebaceous hyperplasia 03/07/2014 04/18/2017 Milial cyst 03/07/2014 04/18/2017 History of irregular menstrual bleeding 12/04/19 14 04/18/2017 History of gastric bypass 09/17/20132016 Encounter for dietary counseling and surveillanc e 04/10/2013 04/18/2017 Type II or unspecified type diabetes mellitus without mention of complication, not stated as uncontrolled 03/30/2013 Neuralgia, neuritis, and radiculitis, unspecifie d 11/29/2012 10/03/2019 Pain in lower limb 10/16/2012 12/03/2013 Type II or unspecified type diabetes mellitus without mention of complication, not stated as uncontrolled 09/18/2012 Irregular menstrual cycle 03/03/20122013 Abdominal pain, left lower quadrant 03/03/2012 12/03/2013 Dysmenorrhea 03/03/2012 06/28/2019 Hyperpigmentation of skin: under eyelids 012 04/18/2017 Surgical Scar: skin of upper lip 10/14/2010 04/18/2017 Tinea corporis 08/25/2010 04/18/2017 Xerosis cutis 08/25/2010 04/18/2017 Obesity 07/15/2010 06/28/2019 Rosacea 04/24/2010 04/18/2017 Telangiectasias 04/24/2010 04/18/2017 Actinic Damage//Sun-Damaged Skin 04/24/2010 04/18/2017 Porokeratosis 04/24/2010 04/18/2017 Solar Lentigines 04/24/2010 04/18/2017 Congenital pigmented melanocytic nevus 0 04/18/2017 Melanocytic Nevus of Trunk: Back 04/24/2010 04/18/2017 Skin tag(s) 04/24/2010 04/18/2017 Viral warts, unspecified 04/24/2010 017 Edema 02/10/2010 04/18/2017 Unspecified sleep apnea 02/19/2008 12/04/19 14 Overview: CPAP @ 8cm sleep study 12/18/10 Morbid obesity 02/19/2008 12/03/2013 Postphlebetic syndrome with other complication 0 12/28/2007 04/18/2017 Rosacea 10/02/2007 04/24/2010 Scanty or infrequent menstruation 10/02/2007 12/03/2013 Dysmetabolic syndrome X 04/19/2007 12/04/19 14 Lumbago 08/09/2006 04/18/2017 Essential hypertension, benign 11/23/2005 1 documented as of this encounter (statuses as of 11/09/2022) [facility] History of Past illness Narrative* Problem Noted Date Resolved Date Strain of right knee and leg 05/18/201603/2017 Hypoproteinemia 04/14/2016 09/09/2016 Hyponatremia 04/14/2016 09/09/2016 Medication overuse headache 08/22/2014 0803/2017 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 04/18/2017 Atypical nevus of flank 05/03/2014 04/18/20 17 Acne vulgaris: inflammatory grade III (chin and jawline face) 03/07/2014 04/18/2017 Dermatofibroma 03/07/2014 04/18/2017 Melanocytic nevi of trunk 03/07/20142016 Sebaceous hyperplasia 03/07/2014 04/18/2017 Milial cyst 03/07/2014 04/18/2017 History of irregular menstrual bleeding 12/04/19 14 04/18/2017 History of gastric bypass 09/17/20132016 Encounter for dietary counseling and surveillanc e 04/10/2013 04/18/2017 Type II or unspecified type diabetes mellitus without mention of complication, not stated as uncontrolled 03/30/2013 Neuralgia, neuritis, and radiculitis, unspecifie d 11/29/2012 10/03/2019 Pain in lower limb 10/16/2012 12/03/2013 Type II or unspecified type diabetes mellitus without mention of complication, not stated as uncontrolled 09/18/2012 Irregular menstrual cycle 03/03/20122013 Abdominal pain, left lower quadrant 03/03/2012 12/03/2013 Dysmenorrhea 03/03/2012 06/28/2019 Hyperpigmentation of skin: under eyelids 012 04/18/2017 Surgical Scar: skin of upper lip 10/14/2010 04/18/2017 Tinea corporis 08/25/2010 04/18/2017 Xerosis cutis 08/25/2010 04/18/2017 Obesity 07/15/2010 06/28/2019 Rosacea 04/24/2010 04/18/2017 Telangiectasias 04/24/2010 04/18/2017 Actinic Damage//Sun-Damaged Skin 04/24/2010 04/18/2017 Porokeratosis 04/24/2010 04/18/2017 Solar Lentigines 04/24/2010 04/18/2017 Congenital pigmented melanocytic nevus 0 04/18/2017 Melanocytic Nevus of Trunk: Back 04/24/2010 04/18/2017 Skin tag(s) 04/24/2010 04/18/2017 Viral warts, unspecified 04/24/2010 017 Edema 02/10/2010 04/18/2017 Unspecified sleep apnea 02/19/2008 12/04/19 14 Overview: CPAP @ 8cm sleep study 12/18/10 Morbid obesity 02/19/2008 12/03/2013 Postphlebetic syndrome with other complication 0 12/28/2007 04/18/2017 Rosacea 10/02/2007 04/24/2010 Scanty or infrequent menstruation 10/02/2007 12/03/2013 Dysmetabolic syndrome X 04/19/2007 12/04/19 14 Lumbago 08/09/2006 04/18/2017 Essential hypertension, benign 11/23/2005 1 documented as of this encounter (statuses as of 11/09/2022) [facility]09-[facility]2016 History of Past illness Narrative* Problem Noted Date Resolved Date Strain of right knee and leg 05/18/201603/2017 Hypoproteinemia 04/14/2016 09/09/2016 Hyponatremia 04/14/2016 09/09/2016 Medication overuse headache 08/22/2014 08/03/2017 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 04/18/2017 Atypical nevus of flank 05/03/2014 04/18/20 17 Acne vulgaris: inflammatory grade III (chin and jawline face) 03/07/2014 04/18/2017 Dermatofibroma 03/07/2014 04/18/2017 Melanocytic nevi of trunk 03/07/20142016 Sebaceous hyperplasia 03/07/2014 04/18/2017 Milial cyst 03/07/2014 04/18/2017 History of irregular menstrual bleeding 12/04/19 14 04/18/2017 History of gastric bypass 09/17/20132016 Encounter for dietary counseling and surveillanc e 04/10/2013 04/18/2017 Type II or unspecified type diabetes mellitus without mention of complication, not stated as uncontrolled 03/30/2013 Neuralgia, neuritis, and radiculitis, unspecifie d 11/29/2012 10/03/2019 Pain in lower limb 10/16/2012 12/03/2013 Type II or unspecified type diabetes mellitus without mention of complication, not stated as uncontrolled 09/18/2012 Irregular menstrual cycle 03/03/20122013 Abdominal pain, left lower quadrant 03/03/2012 12/03/2013 Dysmenorrhea 03/03/2012 06/28/2019 Hyperpigmentation of skin: under eyelids 012 04/18/2017 Surgical Scar: skin of upper lip 10/14/2010 04/18/2017 Tinea corporis 08/25/2010 04/18/2017 Xerosis cutis 08/25/2010 04/18/2017 Obesity 07/15/2010 06/28/2019 Rosacea 04/24/2010 04/18/2017 Telangiectasias 04/24/2010 04/18/2017 Actinic Damage//Sun-Damaged Skin 04/24/2010 04/18/2017 Porokeratosis 04/24/2010 04/18/2017 Solar Lentigines 04/24/2010 04/18/2017 Congenital pigmented melanocytic nevus 0 04/18/2017 Melanocytic Nevus of Trunk: Back 04/24/2010 04/18/2017 Skin tag(s) 04/24/2010 04/18/2017 Viral warts, unspecified 04/24/2010 017 Edema 02/10/2010 04/18/2017 Unspecified sleep apnea 02/19/2008 12/04/19 14 Overview: CPAP @ 8cm sleep study 12/18/10 Morbid obesity 02/19/2008 12/03/2013 Postphlebetic syndrome with other complication 0 12/28/2007 04/18/2017 Rosacea 10/02/2007 04/24/2010 Scanty or infrequent menstruation 10/02/2007 12/03/2013 Dysmetabolic syndrome X 04/19/2007 12/04/19 14 Lumbago 08/09/2006 04/18/2017 Essential hypertension, benign 11/23/2005 1 documented as of this encounter (statuses as of 11/10/2022) [facility] History of Past illness Narrative* Problem Noted Date Resolved Date Strain of right knee and leg 05/18/201603/2017 Hypoproteinemia 04/14/2016 09/09/2016 Hyponatremia 04/14/2016 09/09/2016 Medication overuse headache 08/22/201403/2017 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 04/18/2017 Atypical nevus of flank 05/03/2014 04/18/20 17 Acne vulgaris: inflammatory grade III (chin and jawline face) 03/07/2014 04/18/2017 Dermatofibroma 03/07/2014 04/18/2017 Melanocytic nevi of trunk 03/07/20142016 Sebaceous hyperplasia 03/07/2014 04/18/2017 Milial cyst 03/07/2014 04/18/2017 History of irregular menstrual bleeding 12/04/19 14 04/18/2017 History of gastric bypass 09/17/20132016 Encounter for dietary counseling and surveillanc e 04/10/2013 04/18/2017 Type II or unspecified type diabetes mellitus without mention of complication, not stated as uncontrolled 03/30/2013 Neuralgia, neuritis, and radiculitis, unspecifie d 11/29/2012 10/03/2019 Pain in lower limb 10/16/2012 12/03/2013 Type II or unspecified type diabetes mellitus without mention of complication, not stated as uncontrolled 09/18/2012 Irregular menstrual cycle 03/03/20122013 Abdominal pain, left lower quadrant 03/03/2012 12/03/2013 Dysmenorrhea 03/03/2012 06/28/2019 Hyperpigmentation of skin: under eyelids 012 04/18/2017 Surgical Scar: skin of upper lip 10/14/2010 04/18/2017 Tinea corporis 08/25/2010 04/18/2017 Xerosis cutis 08/25/2010 04/18/2017 Obesity 07/15/2010 06/28/2019 Rosacea 04/24/2010 04/18/2017 Telangiectasias 04/24/2010 04/18/2017 Actinic Damage//Sun-Damaged Skin 04/24/2010 04/18/2017 Porokeratosis 04/24/2010 04/18/2017 Solar Lentigines 04/24/2010 04/18/2017 Congenital pigmented melanocytic nevus 0 04/18/2017 Melanocytic Nevus of Trunk: Back 04/24/2010 04/18/2017 Skin tag(s) 04/24/2010 04/18/2017 Viral warts, unspecified 04/24/2010 017 Edema 02/10/2010 04/18/2017 Unspecified sleep apnea 02/19/2008 12/04/19 14 Overview: CPAP @ 8cm sleep study 12/18/10 Morbid obesity 02/19/2008 12/03/2013 Postphlebetic syndrome with other complication 0 12/28/2007 04/18/2017 Rosacea 10/02/2007 04/24/2010 Scanty or infrequent menstruation 10/02/2007 12/03/2013 Dysmetabolic syndrome X 04/19/2007 12/04/19 14 Lumbago 08/09/2006 04/18/2017 Essential hypertension, benign 11/23/2005 1 documented as of this encounter (statuses as of 11/17/2022) [facility] History of Past illness Narrative* Problem Noted Date Resolved Date Strain of right knee and leg 05/18/201603/2017 Hypoproteinemia 04/14/2016 09/09/2016 Hyponatremia 04/14/2016 09/09/2016 Medication overuse headache 08/22/201403/2017 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 04/18/2017 Atypical nevus of flank 05/03/2014 04/18/20 Acne vulgaris: inflammatory grade III (chin and jawline face) 03/07/2014 04/18/2017 Dermatofibroma 03/07/2014 04/18/2017 Melanocytic nevi of trunk 03/07/20142016 Sebaceous hyperplasia 03/07/2014 04/18/2017 Milial cyst 03/07/2014 04/18/2017 History of irregular menstrual bleeding 12/04/19 14 04/18/2017 History of gastric bypass 09/17/20132016 Encounter for dietary counseling and surveillanc e 04/10/2013 04/18/2017 Type II or unspecified type diabetes mellitus without mention of complication, not stated as uncontrolled 03/30/2013 Neuralgia, neuritis, and radiculitis, unspecifie d 11/29/2012 10/03/2019 Pain in lower limb 10/16/2012 12/03/2013 Type II or unspecified type diabetes mellitus without mention of complication, not stated as uncontrolled 09/18/2012 Irregular menstrual cycle 03/03/20122013 Abdominal pain, left lower quadrant 03/03/2012 12/03/2013 Dysmenorrhea 03/03/2012 06/28/2019 Hyperpigmentation of skin: under eyelids 012 04/18/2017 Surgical Scar: skin of upper lip 10/14/2010 04/18/2017 Tinea corporis 08/25/2010 04/18/2017 Xerosis cutis 08/25/2010 04/18/2017 Obesity 07/15/2010 06/28/2019 Rosacea 04/24/2010 04/18/2017 Telangiectasias 04/24/2010 04/18/2017 Actinic Damage//Sun-Damaged Skin 04/24/2010 04/18/2017 Porokeratosis 04/24/2010 04/18/2017 Solar Lentigines 04/24/2010 04/18/2017 Congenital pigmented melanocytic nevus 0 04/18/2017 Melanocytic Nevus of Trunk: Back 04/24/2010 04/18/2017 Skin tag(s) 04/24/2010 04/18/2017 Viral warts, unspecified 04/24/2010 017 Edema 02/10/2010 04/18/2017 Unspecified sleep apnea 02/19/2008 12/04/19 14 Overview: CPAP @ 8cm sleep study 12/18/10 Morbid obesity 02/19/2008 12/03/2013 Postphlebetic syndrome with other complication 0 12/28/2007 04/18/2017 Rosacea 10/02/2007 04/24/2010 Scanty or infrequent menstruation 10/02/2007 12/03/2013 Dysmetabolic syndrome X 04/19/2007 12/04/19 14 Lumbago 08/09/2006 04/18/2017 Essential hypertension, benign 11/23/2005 1 documented as of this encounter (statuses as of 11/26/2022) [facility] History of Past illness Narrative* Problem Noted Date Resolved Date Strain of right knee and leg 05/18/201603/2017 Hypoproteinemia 04/14/2016 09/09/2016 Hyponatremia 04/14/2016 09/09/2016 Medication overuse headache 08/22/2014 0803/2017 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 04/18/2017 Atypical nevus of flank 05/03/2014 04/18/20 17 Acne vulgaris: inflammatory grade III (chin and jawline face) 03/07/2014 04/18/2017 Dermatofibroma 03/07/2014 04/18/2017 Melanocytic nevi of trunk 03/07/20142016 Sebaceous hyperplasia 03/07/2014 04/18/2017 Milial cyst 03/07/2014 04/18/2017 History of irregular menstrual bleeding 12/04/19 14 04/18/2017 History of gastric bypass 09/17/20132016 Encounter for dietary counseling and surveillanc e 04/10/2013 04/18/2017 Type II or unspecified type diabetes mellitus without mention of complication, not stated as uncontrolled 03/30/2013 Neuralgia, neuritis, and radiculitis, unspecifie d 11/29/2012 10/03/2019 Pain in lower limb 10/16/2012 12/03/2013 Type II or unspecified type diabetes mellitus without mention of complication, not stated as uncontrolled 09/18/2012 Irregular menstrual cycle 03/03/20122013 Abdominal pain, left lower quadrant 03/03/2012 12/03/2013 Dysmenorrhea 03/03/2012 06/28/2019 Hyperpigmentation of skin: under eyelids 012 04/18/2017 Surgical Scar: skin of upper lip 10/14/2010 04/18/2017 Tinea corporis 08/25/2010 04/18/2017 Xerosis cutis 08/25/2010 04/18/2017 Obesity 07/15/2010 06/28/2019 Rosacea 04/24/2010 04/18/2017 Telangiectasias 04/24/2010 04/18/2017 Actinic Damage//Sun-Damaged Skin 04/24/2010 04/18/2017 Porokeratosis 04/24/2010 04/18/2017 Solar Lentigines 04/24/2010 04/18/2017 Congenital pigmented melanocytic nevus 0 04/18/2017 Melanocytic Nevus of Trunk: Back 04/24/2010 04/18/2017 Skin tag(s) 04/24/2010 04/18/2017 Viral warts, unspecified 04/24/2010 017 Edema 02/10/2010 04/18/2017 Unspecified sleep apnea 02/19/2008 12/04/19 14 Overview: CPAP @ 8cm sleep study 12/18/10 Morbid obesity 02/19/2008 12/03/2013 Postphlebetic syndrome with other complication 0 12/28/2007 04/18/2017 Rosacea 10/02/2007 04/24/2010 Scanty or infrequent menstruation 10/02/2007 12/03/2013 Dysmetabolic syndrome X 04/19/2007 12/04/19 14 Lumbago 08/09/2006 04/18/2017 Essential hypertension, benign 11/23/2005 1 documented as of this encounter (statuses as of 12/16/2022) [facility] History of Past illness Narrative* Problem Noted Date Resolved Date Strain of right knee and leg 05/18/201603/2017 Hypoproteinemia 04/14/2016 09/09/2016 Hyponatremia 04/14/2016 09/09/2016 Medication overuse headache 08/22/201403/2017 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 04/18/2017 Atypical nevus of flank 05/03/2014 04/18/20 17 Acne vulgaris: inflammatory grade III (chin and jawline face) 03/07/2014 04/18/2017 Dermatofibroma 03/07/2014 04/18/2017 Melanocytic nevi of trunk 03/07/20142016 Sebaceous hyperplasia 03/07/2014 04/18/2017 Milial cyst 03/07/2014 04/18/2017 History of irregular menstrual bleeding 12/04/19 14 04/18/2017 History of gastric bypass 09/17/20132016 Encounter for dietary counseling and surveillanc e 04/10/2013 04/18/2017 Type II or unspecified type diabetes mellitus without mention of complication, not stated as uncontrolled 03/30/2013 Neuralgia, neuritis, and radiculitis, unspecifie d 11/29/2012 10/03/2019 Pain in lower limb 10/16/2012 12/03/2013 Type II or unspecified type diabetes mellitus without mention of complication, not stated as uncontrolled 09/18/2012 Irregular menstrual cycle 03/03/20122013 Abdominal pain, left lower quadrant 03/03/2012 12/03/2013 Dysmenorrhea 03/03/2012 06/28/2019 Hyperpigmentation of skin: under eyelids 012 04/18/2017 Surgical Scar: skin of upper lip 10/14/2010 04/18/2017 Tinea corporis 08/25/2010 04/18/2017 Xerosis cutis 08/25/2010 04/18/2017 Obesity 07/15/2010 06/28/2019 Rosacea 04/24/2010 04/18/2017 Telangiectasias 04/24/2010 04/18/2017 Actinic Damage//Sun-Damaged Skin 04/24/2010 04/18/2017 Porokeratosis 04/24/2010 04/18/2017 Solar Lentigines 04/24/2010 04/18/2017 Congenital pigmented melanocytic nevus 0 04/18/2017 Melanocytic Nevus of Trunk: Back 04/24/2010 04/18/2017 Skin tag(s) 04/24/2010 04/18/2017 Viral warts, unspecified 04/24/2010 017 Edema 02/10/2010 04/18/2017 Unspecified sleep apnea 02/19/2008 12/04/19 14 Overview: CPAP @ 8cm sleep study 12/18/10 Morbid obesity 02/19/2008 12/03/2013 Postphlebetic syndrome with other complication 0 12/28/2007 04/18/2017 Rosacea 10/02/2007 04/24/2010 Scanty or infrequent menstruation 10/02/2007 12/03/2013 Dysmetabolic syndrome X 04/19/2007 12/04/19 14 Lumbago 08/09/2006 04/18/2017 Essential hypertension, benign 11/23/2005 1 documented as of this encounter (statuses as of 01/06/2023) [facility] History of Past illness Narrative* Problem Noted Date Resolved Date Strain of right knee and leg 05/18/201603/2017 Hypoproteinemia 04/14/2016 09/09/2016 Hyponatremia 04/14/2016 09/09/2016 Medication overuse headache 08/22/2014 0803/2017 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 04/18/2017 Atypical nevus of flank 05/03/2014 04/18/20 17 Acne vulgaris: inflammatory grade III (chin and jawline face) 03/07/2014 04/18/2017 Dermatofibroma 03/07/2014 04/18/2017 Melanocytic nevi of trunk 03/07/20142016 Sebaceous hyperplasia 03/07/2014 04/18/2017 Milial cyst 03/07/2014 04/18/2017 History of irregular menstrual bleeding 12/04/19 14 04/18/2017 History of gastric bypass 09/17/20132016 Encounter for dietary counseling and surveillanc e 04/10/2013 04/18/2017 Type II or unspecified type diabetes mellitus without mention of complication, not stated as uncontrolled 03/30/2013 Neuralgia, neuritis, and radiculitis, unspecifie d 11/29/2012 10/03/2019 Pain in lower limb 10/16/2012 12/03/2013 Type II or unspecified type diabetes mellitus without mention of complication, not stated as uncontrolled 09/18/2012 Irregular menstrual cycle 03/03/20122013 Abdominal pain, left lower quadrant 03/03/2012 12/03/2013 Dysmenorrhea 03/03/2012 06/28/2019 Hyperpigmentation of skin: under eyelids 012 04/18/2017 Surgical Scar: skin of upper lip 10/14/2010 04/18/2017 Tinea corporis 08/25/2010 04/18/2017 Xerosis cutis 08/25/2010 04/18/2017 Obesity 07/15/2010 06/28/2019 Rosacea 04/24/2010 04/18/2017 Telangiectasias 04/24/2010 04/18/2017 Actinic Damage//Sun-Damaged Skin 04/24/2010 04/18/2017 Porokeratosis 04/24/2010 04/18/2017 Solar Lentigines 04/24/2010 04/18/2017 Congenital pigmented melanocytic nevus 0 04/18/2017 Melanocytic Nevus of Trunk: Back 04/24/2010 04/18/2017 Skin tag(s) 04/24/2010 04/18/2017 Viral warts, unspecified 04/24/2010 017 Edema 02/10/2010 04/18/2017 Unspecified sleep apnea 02/19/2008 12/04/19 14 Overview: CPAP @ 8cm sleep study 12/18/10 Morbid obesity 02/19/2008 12/03/2013 Postphlebetic syndrome with other complication 0 12/28/2007 04/18/2017 Rosacea 10/02/2007 04/24/2010 Scanty or infrequent menstruation 10/02/2007 12/03/2013 Dysmetabolic syndrome X 04/19/2007 12/04/19 14 Lumbago 08/09/2006 04/18/2017 Essential hypertension, benign 11/23/2005 1 documented as of this encounter (statuses as of 01/10/2023) [facility] History of Past illness Narrative* Problem Noted Date Resolved Date Strain of right knee and leg 05/18/201603/2017 Hypoproteinemia 04/14/2016 09/09/2016 Hyponatremia 04/14/2016 09/09/2016 Medication overuse headache 08/22/201403/2017 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 04/18/2017 Atypical nevus of flank 05/03/2014 04/18/20 17 Acne vulgaris: inflammatory grade III (chin and jawline face) 03/07/2014 04/18/2017 Dermatofibroma 03/07/2014 04/18/2017 Melanocytic nevi of trunk 03/07/20142016 Sebaceous hyperplasia 03/07/2014 04/18/2017 Milial cyst 03/07/2014 04/18/2017 History of irregular menstrual bleeding 12/04/19 14 04/18/2017 History of gastric bypass 09/17/20132016 Encounter for dietary counseling and surveillanc e 04/10/2013 04/18/2017 Type II or unspecified type diabetes mellitus without mention of complication, not stated as uncontrolled 03/30/2013 Neuralgia, neuritis, and radiculitis, unspecifie d 11/29/2012 10/03/2019 Pain in lower limb 10/16/2012 12/03/2013 Type II or unspecified type diabetes mellitus without mention of complication, not stated as uncontrolled 09/18/2012 Irregular menstrual cycle 03/03/20122013 Abdominal pain, left lower quadrant 03/03/2012 12/03/2013 Dysmenorrhea 03/03/2012 06/28/2019 Hyperpigmentation of skin: under eyelids 012 04/18/2017 Surgical Scar: skin of upper lip 10/14/2010 04/18/2017 Tinea corporis 08/25/2010 04/18/2017 Xerosis cutis 08/25/2010 04/18/2017 Obesity 07/15/2010 06/28/2019 Rosacea 04/24/2010 04/18/2017 Telangiectasias 04/24/2010 04/18/2017 Actinic Damage//Sun-Damaged Skin 04/24/2010 04/18/2017 Porokeratosis 04/24/2010 04/18/2017 Solar Lentigines 04/24/2010 04/18/2017 Congenital pigmented melanocytic nevus 0 04/18/2017 Melanocytic Nevus of Trunk: Back 04/24/2010 04/18/2017 Skin tag(s) 04/24/2010 04/18/2017 Viral warts, unspecified 04/24/2010 017 Edema 02/10/2010 04/18/2017 Unspecified sleep apnea 02/19/2008 12/04/19 14 Overview: CPAP @ 8cm sleep study 12/18/10 Morbid obesity 02/19/2008 12/03/2013 Postphlebetic syndrome with other complication 0 12/28/2007 04/18/2017 Rosacea 10/02/2007 04/24/2010 Scanty or infrequent menstruation 10/02/2007 12/03/2013 Dysmetabolic syndrome X 04/19/2007 12/04/19 14 Lumbago 08/09/2006 04/18/2017 Essential hypertension, benign 11/23/2005 1 documented as of this encounter (statuses as of 01/18/2023) [facility] History of Past illness Narrative* Problem Noted Date Diagnosed Date Resolved Date Strain of right knee and leg 05/18/2016 04/18/2017 Hypoproteinemia 04/14/2016 09/09/2016 Hyponatremia 04/14/2016 09/09/2016 Medication overuse headache 08/22/2014 04/18/2017 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 4 04/18/2017 Atypical nevus of flank 05/03/201403/2017 Acne vulgaris: inflammatory grade III (chin and jawline face) 03/07/2014 04/18/2017 Dermatofibroma 03/07/2014 04/18/2017 Melanocytic nevi of trunk 03/07/2014 Sebaceous hyperplasia 03/07/20142016 Milial cyst 03/07/2014 04/18/2017 History of irregular menstrual bleeding 12/03/2013 04/18/2017 History of gastric bypass 09/17/2013 Encounter for stan lazo and surveillance 04/10/2013 04/18/2017 Type II or unspecified type diabetes mellitus without mention of complication, not stated as uncontrolled 03/30/2013 12/03/2013 Neuralgia, neuritis, and rad iculitis, unspecified 11/29/2012 10/03/2019 Pain in lower limb 10/16/2012 4 Type II or unspecified type diabetes mellitus without mention of complication, not stated as uncontrolled 09/18/2012 12/15/2012 Irregular menstrual cycle 03/03/2012 Abdominal pain, left lower quadrant 03/03/2012 12/03/2013 Dysmenorrhea 03/03/2012 06/28/2019 Hyperpigmentation of skin: under eyelids 02/22/2012 04/18/2017 Surgical Scar: skin of upper lip 10/14/2010 04/18/2017 Tinea corporis 08/25/2010 04/18/2017 Xerosis cutis 08/25/2010 04/18/2017 Obesity 07/15/2010 06/28/2019 Rosacea 04/24/2010 04/18/2017 Telangiectasias 04/24/2010 04/18/2017 Actinic Damage//Sun-Damaged Skin 04/24/2010 04/18/2017 Porokeratosis 04/24/2010 04/18/2017 Solar Lentigines 04/24/2010 04/18/2017 Congenital pigmented melanocytic nevus 04/24/2010 04/18/2017 Melanocytic Nevus of Trunk: Back 04/24/2010 04/18/2017 Skin tag(s) 04/24/2010 04/18/2017 Viral warts, unspecified 04/24/201003/2017 Edema 02/10/2010 04/18/2017 Unspecified sleep apnea 02/19/200811/11 Overview: CPAP @ 8cm sleep study 12/18/10 Morbid obesity 02/19/2008 12/03/2013 Postphlebetic syndrome with other complication 12/28/2007 04/18/2017 Rosacea 10/02/2007 04/24/2010 Scanty or infrequent menstruation 10/02/2007 12/03/2013 Dysmetabolic syndrome X 04/19/200711/11 Lumbago 08/09/2006 04/18/2017 Essential hypertension, benign 11/23/2005 06/28/2019 documented as of this encounter (statuses as of 04/07/2023) [facility] History of Past illness Narrative* Problem Noted Date Diagnosed Date Resolved Date Strain of right knee and leg 05/18/2016 04/18/2017 Hypoproteinemia 04/14/2016 09/09/2016 Hyponatremia 04/14/2016 09/09/2016 Medication overuse headache 08/22/2014 04/18/2017 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 4 04/18/2017 Atypical nevus of flank 05/03/201403/2017 Acne vulgaris: inflammatory grade III (chin and jawline face) 03/07/2014 04/18/2017 Dermatofibroma 03/07/2014 04/18/2017 Melanocytic nevi of trunk 03/07/2014 Sebaceous hyperplasia 03/07/20142016 Milial cyst 03/07/2014 04/18/2017 History of irregular menstrual bleeding 12/03/2013 04/18/2017 History of gastric bypass 09/17/2013 Encounter for stan counskayla ling and surveillance 04/10/2013 04/18/2017 Type II or unspecified type diabetes mellitus without mention of complication, not stated as uncontrolled 03/30/2013 12/03/2013 Neuralgia, neuritis, and rad iculitis, unspecified 11/29/2012 10/03/2019 Pain in lower limb 10/16/2012 4 Type II or unspecified type diabetes mellitus without mention of complication, not stated as uncontrolled 09/18/2012 12/15/2012 Irregular menstrual cycle 03/03/2012 Abdominal pain, left lower quadrant 03/03/2012 12/03/2013 Dysmenorrhea 03/03/2012 06/28/2019 Hyperpigmentation of skin: under eyelids 02/22/2012 04/18/2017 Surgical Scar: skin of upper lip 10/14/2010 04/18/2017 Tinea corporis 08/25/2010 04/18/2017 Xerosis cutis 08/25/2010 04/18/2017 Obesity 07/15/2010 06/28/2019 Rosacea 04/24/2010 04/18/2017 Telangiectasias 04/24/2010 04/18/2017 Actinic Damage//Sun-Damaged Skin 04/24/2010 04/18/2017 Porokeratosis 04/24/2010 04/18/2017 Solar Lentigines 04/24/2010 04/18/2017 Congenital pigmented melanocytic nevus 04/24/2010 04/18/2017 Melanocytic Nevus of Trunk: Back 04/24/2010 04/18/2017 Skin tag(s) 04/24/2010 04/18/2017 Viral warts, unspecified 04/24/201003/2017 Edema 02/10/2010 04/18/2017 Unspecified sleep apnea 02/19/200811/11 Overview: CPAP @ 8cm sleep study 12/18/10 Morbid obesity 02/19/2008 12/03/2013 Postphlebetic syndrome with other complication 12/28/2007 04/18/2017 Rosacea 10/02/2007 04/24/2010 Scanty or infrequent menstruation 10/02/2007 12/03/2013 Dysmetabolic syndrome X 04/19/200711/11 Lumbago 08/09/2006 04/18/2017 Essential hypertension, benign 11/23/2005 06/28/2019 documented as of this encounter (statuses as of 05/19/2023) [facility] History of Past illness Narrative* Problem Noted Date Diagnosed Date Resolved Date Strain of right knee and leg 05/18/2016 04/18/2017 Hypoproteinemia 04/14/2016 09/09/2016 Hyponatremia 04/14/2016 09/09/2016 Medication overuse headache 08/22/2014 04/18/2017 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 4 04/18/2017 Atypical nevus of flank 05/03/201403/2017 Acne vulgaris: inflammatory grade III (chin and jawline face) 03/07/2014 04/18/2017 Dermatofibroma 03/07/2014 04/18/2017 Melanocytic nevi of trunk 03/07/2014 Sebaceous hyperplasia 03/07/20142016 Milial cyst 03/07/2014 04/18/2017 History of irregular menstrual bleeding 12/03/2013 04/18/2017 History of gastric bypass 09/17/2013 Encounter for stan muire clifton and surveillance 04/10/2013 04/18/2017 Type II or unspecified type diabetes mellitus without mention of complication, not stated as uncontrolled 03/30/2013 12/03/2013 Neuralgia, neuritis, and rad iculitis, unspecified 11/29/2012 10/03/2019 Pain in lower limb 10/16/2012 4 Type II or unspecified type diabetes mellitus without mention of complication, not stated as uncontrolled 09/18/2012 12/15/2012 Irregular menstrual cycle 03/03/2012 Abdominal pain, left lower quadrant 03/03/2012 12/03/2013 Dysmenorrhea 03/03/2012 06/28/2019 Hyperpigmentation of skin: under eyelids 02/22/2012 04/18/2017 Surgical Scar: skin of upper lip 10/14/2010 04/18/2017 Tinea corporis 08/25/2010 04/18/2017 Xerosis cutis 08/25/2010 04/18/2017 Obesity 07/15/2010 06/28/2019 Rosacea 04/24/2010 04/18/2017 Telangiectasias 04/24/2010 04/18/2017 Actinic Damage//Sun-Damaged Skin 04/24/2010 04/18/2017 Porokeratosis 04/24/2010 04/18/2017 Solar Lentigines 04/24/2010 04/18/2017 Congenital pigmented melanocytic nevus 04/24/2010 04/18/2017 Melanocytic Nevus of Trunk: Back 04/24/2010 04/18/2017 Skin tag(s) 04/24/2010 04/18/2017 Viral warts, unspecified 04/24/201003/2017 Edema 02/10/2010 04/18/2017 Unspecified sleep apnea 02/19/200811/11 Overview: CPAP @ 8cm sleep study 12/18/10 Morbid obesity 02/19/2008 12/03/2013 Postphlebetic syndrome with other complication 12/28/2007 04/18/2017 Rosacea 10/02/2007 04/24/2010 Scanty or infrequent menstruation 10/02/2007 12/03/2013 Dysmetabolic syndrome X 04/19/200711/11 Lumbago 08/09/2006 04/18/2017 Essential hypertension, benign 11/23/2005 06/28/2019 documented as of this encounter (statuses as of 05/19/2023) [facility]09-06-2016 History of Past illness Narrative* Problem Noted Date Diagnosed Date Resolved Date Strain of right knee and leg 05/18/2016 04/18/2017 Hypoproteinemia 04/14/2016 09/09/2016 Hyponatremia 04/14/2016 09/09/2016 Medication overuse headache 08/22/2014 04/18/2017 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 4 04/18/2017 Atypical nevus of flank 05/03/201403/2017 Acne vulgaris: inflammatory grade III (chin and jawline face) 03/07/2014 04/18/2017 Dermatofibroma 03/07/2014 04/18/2017 Melanocytic nevi of trunk 03/07/2014 Sebaceous hyperplasia 03/07/20142016 Milial cyst 03/07/2014 04/18/2017 History of irregular menstrual bleeding 12/03/2013 04/18/2017 History of gastric bypass 09/17/2013 Encounter for dietary counse ling and surveillance 04/10/2013 04/18/2017 Type II or unspecified type diabetes mellitus without mention of complication, not stated as uncontrolled 03/30/2013 12/03/2013 Neuralgia, neuritis, and rad iculitis, unspecified 11/29/2012 10/03/2019 Pain in lower limb 10/16/2012 4 Type II or unspecified type diabetes mellitus without mention of complication, not stated as uncontrolled 09/18/2012 12/15/2012 Irregular menstrual cycle 03/03/2012 Abdominal pain, left lower quadrant 03/03/2012 12/03/2013 Dysmenorrhea 03/03/2012 06/28/2019 Hyperpigmentation of skin: under eyelids 02/22/2012 04/18/2017 Surgical Scar: skin of upper lip 10/14/2010 04/18/2017 Tinea corporis 08/25/2010 04/18/2017 Xerosis cutis 08/25/2010 04/18/2017 Obesity 07/15/2010 06/28/2019 Rosacea 04/24/2010 04/18/2017 Telangiectasias 04/24/2010 04/18/2017 Actinic Damage//Sun-Damaged Skin 04/24/2010 04/18/2017 Porokeratosis 04/24/2010 04/18/2017 Solar Lentigines 04/24/2010 04/18/2017 Congenital pigmented melanocytic nevus 04/24/2010 04/18/2017 Melanocytic Nevus of Trunk: Back 04/24/2010 04/18/2017 Skin tag(s) 04/24/2010 04/18/2017 Viral warts, unspecified 04/24/201003/2017 Edema 02/10/2010 04/18/2017 Unspecified sleep apnea 02/19/200811/11 Overview: CPAP @ 8cm sleep study 12/18/10 Morbid obesity 02/19/2008 12/03/2013 Postphlebetic syndrome with other complication 12/28/2007 04/18/2017 Rosacea 10/02/2007 04/24/2010 Scanty or infrequent menstruation 10/02/2007 12/03/2013 Dysmetabolic syndrome X 04/19/200711/11 Lumbago 08/09/2006 04/18/2017 Essential hypertension, benign 11/23/2005 06/28/2019 documented as of this encounter (statuses as of 06/17/2023) [facility]09[facility]2016 History of Past illness Narrative* Problem Noted Date Diagnosed Date Resolved Date Strain of right knee and leg 05/18/2016 04/18/2017 Hypoproteinemia 04/14/2016 09/09/2016 Hyponatremia 04/14/2016 09/09/2016 Medication overuse headache 08/22/2014 04/18/2017 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 4 04/18/2017 Atypical nevus of flank 05/03/2014 0803/2017 Acne vulgaris: inflammatory grade III (chin and jawline face) 03/07/2014 04/18/2017 Dermatofibroma 03/07/2014 04/18/2017 Melanocytic nevi of trunk 03/07/2014 Sebaceous hyperplasia 03/07/20142016 Milial cyst 03/07/2014 04/18/2017 History of irregular menstrual bleeding 12/03/2013 04/18/2017 History of gastric bypass 09/17/2013 Encounter for dietary counse ling and surveillance 04/10/2013 04/18/2017 Type II or unspecified type diabetes mellitus without mention of complication, not stated as uncontrolled 03/30/2013 12/03/2013 Neuralgia, neuritis, and rad iculitis, unspecified 11/29/2012 10/03/2019 Pain in lower limb 10/16/2012 4 Type II or unspecified type diabetes mellitus without mention of complication, not stated as uncontrolled 09/18/2012 12/15/2012 Irregular menstrual cycle 03/03/2012 Abdominal pain, left lower quadrant 03/03/2012 12/03/2013 Dysmenorrhea 03/03/2012 06/28/2019 Hyperpigmentation of skin: under eyelids 02/22/2012 04/18/2017 Surgical Scar: skin of upper lip 10/14/2010 04/18/2017 Tinea corporis 08/25/2010 04/18/2017 Xerosis cutis 08/25/2010 04/18/2017 Obesity 07/15/2010 06/28/2019 Rosacea 04/24/2010 04/18/2017 Telangiectasias 04/24/2010 04/18/2017 Actinic Damage//Sun-Damaged Skin 04/24/2010 04/18/2017 Porokeratosis 04/24/2010 04/18/2017 Solar Lentigines 04/24/2010 04/18/2017 Congenital pigmented melanocytic nevus 04/24/2010 04/18/2017 Melanocytic Nevus of Trunk: Back 04/24/2010 04/18/2017 Skin tag(s) 04/24/2010 04/18/2017 Viral warts, unspecified 04/24/201003/2017 Edema 02/10/2010 04/18/2017 Unspecified sleep apnea 02/19/200811/11 Overview: CPAP @ 8cm sleep study 12/18/10 Morbid obesity 02/19/2008 12/03/2013 Postphlebetic syndrome with other complication 12/28/2007 04/18/2017 Rosacea 10/02/2007 04/24/2010 Scanty or infrequent menstruation 10/02/2007 12/03/2013 Dysmetabolic syndrome X 04/19/200711/11 Lumbago 08/09/2006 04/18/2017 Essential hypertension, benign 11/23/2005 06/28/2019 documented as of this encounter (statuses as of 06/30/2023) [facility]09[facility]2016 History of Past illness Narrative* Problem Noted Date Diagnosed Date Resolved Date Strain of right knee and leg 05/18/2016 04/18/2017 Hypoproteinemia 04/14/2016 09/09/2016 Hyponatremia 04/14/2016 09/09/2016 Medication overuse headache 08/22/2014 04/18/2017 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 4 04/18/2017 Atypical nevus of flank 05/03/201403/2017 Acne vulgaris: inflammatory grade III (chin and jawline face) 03/07/2014 04/18/2017 Dermatofibroma 03/07/2014 04/18/2017 Melanocytic nevi of trunk 03/07/2014 Sebaceous hyperplasia 03/07/20142016 Milial cyst 03/07/2014 04/18/2017 History of irregular menstrual bleeding 12/03/2013 04/18/2017 History of gastric bypass 09/17/2013 Encounter for dietary counse ling and surveillance 04/10/2013 04/18/2017 Type II or unspecified type diabetes mellitus without mention of complication, not stated as uncontrolled 03/30/2013 12/03/2013 Neuralgia, neuritis, and rad iculitis, unspecified 11/29/2012 10/03/2019 Pain in lower limb 10/16/2012 4 Type II or unspecified type diabetes mellitus without mention of complication, not stated as uncontrolled 09/18/2012 12/15/2012 Irregular menstrual cycle 03/03/2012 Abdominal pain, left lower quadrant 03/03/2012 12/03/2013 Dysmenorrhea 03/03/2012 06/28/2019 Hyperpigmentation of skin: under eyelids 02/22/2012 04/18/2017 Surgical Scar: skin of upper lip 10/14/2010 04/18/2017 Tinea corporis 08/25/2010 04/18/2017 Xerosis cutis 08/25/2010 04/18/2017 Obesity 07/15/2010 06/28/2019 Rosacea 04/24/2010 04/18/2017 Telangiectasias 04/24/2010 04/18/2017 Actinic Damage//Sun-Damaged Skin 04/24/2010 04/18/2017 Porokeratosis 04/24/2010 04/18/2017 Solar Lentigines 04/24/2010 04/18/2017 Congenital pigmented melanocytic nevus 04/24/2010 04/18/2017 Melanocytic Nevus of Trunk: Back 04/24/2010 04/18/2017 Skin tag(s) 04/24/2010 04/18/2017 Viral warts, unspecified 04/24/201003/2017 Edema 02/10/2010 04/18/2017 Unspecified sleep apnea 02/19/200811/11 Overview: CPAP @ 8cm sleep study 12/18/10 Morbid obesity 02/19/2008 12/03/2013 Postphlebetic syndrome with other complication 12/28/2007 04/18/2017 Rosacea 10/02/2007 04/24/2010 Scanty or infrequent menstruation 10/02/2007 12/03/2013 Dysmetabolic syndrome X 04/19/200711/11 Lumbago 08/09/2006 04/18/2017 Essential hypertension, benign 11/23/2005 06/28/2019 documented as of this encounter (statuses as of 07/12/2023) [facility]09[facility]2016 History of Past illness Narrative* Problem Noted Date Diagnosed Date Resolved Date Strain of right knee and leg 05/18/2016 04/18/2017 Hypoproteinemia 04/14/2016 09/09/2016 Hyponatremia 04/14/2016 09/09/2016 Medication overuse headache 08/22/2014 04/18/2017 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 4 04/18/2017 Atypical nevus of flank 05/03/2014 0803/2017 Acne vulgaris: inflammatory grade III (chin and jawline face) 03/07/2014 04/18/2017 Dermatofibroma 03/07/2014 04/18/2017 Melanocytic nevi of trunk 03/07/2014 Sebaceous hyperplasia 03/07/20142016 Milial cyst 03/07/2014 04/18/2017 History of irregular menstrual bleeding 12/03/2013 04/18/2017 History of gastric bypass 09/17/2013 Encounter for dietary counse ling and surveillance 04/10/2013 04/18/2017 Type II or unspecified type diabetes mellitus without mention of complication, not stated as uncontrolled 03/30/2013 12/03/2013 Neuralgia, neuritis, and rad iculitis, unspecified 11/29/2012 10/03/2019 Pain in lower limb 10/16/2012 4 Type II or unspecified type diabetes mellitus without mention of complication, not stated as uncontrolled 09/18/2012 12/15/2012 Irregular menstrual cycle 03/03/2012 Abdominal pain, left lower quadrant 03/03/2012 12/03/2013 Dysmenorrhea 03/03/2012 06/28/2019 Hyperpigmentation of skin: under eyelids 02/22/2012 04/18/2017 Surgical Scar: skin of upper lip 10/14/2010 04/18/2017 Tinea corporis 08/25/2010 04/18/2017 Xerosis cutis 08/25/2010 04/18/2017 Obesity 07/15/2010 06/28/2019 Rosacea 04/24/2010 04/18/2017 Telangiectasias 04/24/2010 04/18/2017 Actinic Damage//Sun-Damaged Skin 04/24/2010 04/18/2017 Porokeratosis 04/24/2010 04/18/2017 Solar Lentigines 04/24/2010 04/18/2017 Congenital pigmented melanocytic nevus 04/24/2010 04/18/2017 Melanocytic Nevus of Trunk: Back 04/24/2010 04/18/2017 Skin tag(s) 04/24/2010 04/18/2017 Viral warts, unspecified 04/24/201003/2017 Edema 02/10/2010 04/18/2017 Unspecified sleep apnea 02/19/200811/11 Overview: CPAP @ m sleep study 12/18/10 Morbid obesity 02/19/2008 12/03/2013 Postphlebetic syndrome with other complication 12/28/2007 04/18/2017 Rosacea 10/02/2007 04/24/2010 Scanty or infrequent menstruation 10/02/2007 12/03/2013 Dysmetabolic syndrome X 04/19/200711/11 Lumbago 08/09/2006 04/18/2017 Essential hypertension, benign 11/23/2005 06/28/2019 documented as of this encounter (statuses as of 07/26/2023) [facility]09[facility]2016 History of Past illness Narrative* Problem Noted Date Diagnosed Date Resolved Date Strain of right knee and leg 05/18/2016 04/18/2017 Hypoproteinemia 04/14/2016 09/09/2016 Hyponatremia 04/14/2016 09/09/2016 Medication overuse headache 08/22/2014 04/18/2017 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 4 04/18/2017 Atypical nevus of flank 05/03/201403/2017 Acne vulgaris: inflammatory grade III (chin and jawline face) 03/07/2014 04/18/2017 Dermatofibroma 03/07/2014 04/18/2017 Melanocytic nevi of trunk 03/07/2014 Sebaceous hyperplasia 03/07/20142016 Milial cyst 03/07/2014 04/18/2017 History of irregular menstrual bleeding 12/03/2013 04/18/2017 History of gastric bypass 09/17/2013 Encounter for dietary counse ling and surveillance 04/10/2013 04/18/2017 Type II or unspecified type diabetes mellitus without mention of complication, not stated as uncontrolled 03/30/2013 12/03/2013 Neuralgia, neuritis, and rad iculitis, unspecified 11/29/2012 10/03/2019 Pain in lower limb 10/16/2012 4 Type II or unspecified type diabetes mellitus without mention of complication, not stated as uncontrolled 09/18/2012 12/15/2012 Irregular menstrual cycle 03/03/2012 Abdominal pain, left lower quadrant 03/03/2012 12/03/2013 Dysmenorrhea 03/03/2012 06/28/2019 Hyperpigmentation of skin: under eyelids 02/22/2012 04/18/2017 Surgical Scar: skin of upper lip 10/14/2010 04/18/2017 Tinea corporis 08/25/2010 04/18/2017 Xerosis cutis 08/25/2010 04/18/2017 Obesity 07/15/2010 06/28/2019 Rosacea 04/24/2010 04/18/2017 Telangiectasias 04/24/2010 04/18/2017 Actinic Damage//Sun-Damaged Skin 04/24/2010 04/18/2017 Porokeratosis 04/24/2010 04/18/2017 Solar Lentigines 04/24/2010 04/18/2017 Congenital pigmented melanocytic nevus 04/24/2010 04/18/2017 Melanocytic Nevus of Trunk: Back 04/24/2010 04/18/2017 Skin tag(s) 04/24/2010 04/18/2017 Viral warts, unspecified 04/24/201003/2017 Edema 02/10/2010 04/18/2017 Unspecified sleep apnea 02/19/200811/11 Overview: CPAP @ 8cm sleep study 12/18/10 Morbid obesity 02/19/2008 12/03/2013 Postphlebetic syndrome with other complication 12/28/2007 04/18/2017 Rosacea 10/02/2007 04/24/2010 Scanty or infrequent menstruation 10/02/2007 12/03/2013 Dysmetabolic syndrome X 04/19/200711/11 Lumbago 08/09/2006 04/18/2017 Essential hypertension, benign 11/23/2005 06/28/2019 documented as of this encounter (statuses as of 08/12/2023) [facility]09[facility]2016 History of Past illness Narrative* Problem Noted Date Diagnosed Date Resolved Date Strain of right knee and leg 05/18/2016 04/18/2017 Hypoproteinemia 04/14/2016 09/09/2016 Hyponatremia 04/14/2016 09/09/2016 Medication overuse headache 08/22/2014 04/18/2017 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 4 04/18/2017 Atypical nevus of flank 05/03/201403/2017 Acne vulgaris: inflammatory grade III (chin and jawline face) 03/07/2014 04/18/2017 Dermatofibroma 03/07/2014 04/18/2017 Melanocytic nevi of trunk 03/07/2014 Sebaceous hyperplasia 03/07/20142016 Milial cyst 03/07/2014 04/18/2017 History of irregular menstrual bleeding 12/03/2013 04/18/2017 History of gastric bypass 09/17/2013 Encounter for dietary counse ling and surveillance 04/10/2013 04/18/2017 Type II or unspecified type diabetes mellitus without mention of complication, not stated as uncontrolled 03/30/2013 12/03/2013 Neuralgia, neuritis, and rad iculitis, unspecified 11/29/2012 10/03/2019 Pain in lower limb 10/16/2012 4 Type II or unspecified type diabetes mellitus without mention of complication, not stated as uncontrolled 09/18/2012 12/15/2012 Irregular menstrual cycle 03/03/2012 Abdominal pain, left lower quadrant 03/03/2012 12/03/2013 Dysmenorrhea 03/03/2012 06/28/2019 Hyperpigmentation of skin: under eyelids 02/22/2012 04/18/2017 Surgical Scar: skin of upper lip 10/14/2010 04/18/2017 Tinea corporis 08/25/2010 04/18/2017 Xerosis cutis 08/25/2010 04/18/2017 Obesity 07/15/2010 06/28/2019 Rosacea 04/24/2010 04/18/2017 Telangiectasias 04/24/2010 04/18/2017 Actinic Damage//Sun-Damaged Skin 04/24/2010 04/18/2017 Porokeratosis 04/24/2010 04/18/2017 Solar Lentigines 04/24/2010 04/18/2017 Congenital pigmented melanocytic nevus 04/24/2010 04/18/2017 Melanocytic Nevus of Trunk: Back 04/24/2010 04/18/2017 Skin tag(s) 04/24/2010 04/18/2017 Viral warts, unspecified 04/24/201003/2017 Edema 02/10/2010 04/18/2017 Unspecified sleep apnea 02/19/200811/11 Overview: CPAP @ 8cm sleep study 12/18/10 Morbid obesity 02/19/2008 12/03/2013 Postphlebetic syndrome with other complication 12/28/2007 04/18/2017 Rosacea 10/02/2007 04/24/2010 Scanty or infrequent menstruation 10/02/2007 12/03/2013 Dysmetabolic syndrome X 04/19/200711/11 Lumbago 08/09/2006 04/18/2017 Essential hypertension, benign 11/23/2005 06/28/2019 documented as of this encounter (statuses as of 10/20/2023) [facility]09[facility] History of Past illness Narrative* Problem Noted Date Diagnosed Date Resolved Date Strain of right knee and leg 05/18/2016 04/18/2017 Hypoproteinemia 04/14/2016 09/09/2016 Hyponatremia 04/14/2016 09/09/2016 Medication overuse headache 08/22/2014 04/18/2017 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 4 04/18/2017 Atypical nevus of flank 05/03/201403/2017 Acne vulgaris: inflammatory grade III (chin and jawline face) 03/07/2014 04/18/2017 Dermatofibroma 03/07/2014 04/18/2017 Melanocytic nevi of trunk 03/07/2014 Sebaceous hyperplasia 03/07/20142016 Milial cyst 03/07/2014 04/18/2017 History of irregular menstrual bleeding 12/03/2013 04/18/2017 History of gastric bypass 09/17/2013 Encounter for dietary counse ling and surveillance 04/10/2013 04/18/2017 Type II or unspecified type diabetes mellitus without mention of complication, not stated as uncontrolled 03/30/2013 12/03/2013 Neuralgia, neuritis, and rad iculitis, unspecified 11/29/2012 10/03/2019 Pain in lower limb 10/16/2012 4 Type II or unspecified type diabetes mellitus without mention of complication, not stated as uncontrolled 09/18/2012 12/15/2012 Irregular menstrual cycle 03/03/2012 Abdominal pain, left lower quadrant 03/03/2012 12/03/2013 Dysmenorrhea 03/03/2012 06/28/2019 Hyperpigmentation of skin: under eyelids 02/22/2012 04/18/2017 Surgical Scar: skin of upper lip 10/14/2010 04/18/2017 Tinea corporis 08/25/2010 04/18/2017 Xerosis cutis 08/25/2010 04/18/2017 Obesity 07/15/2010 06/28/2019 Rosacea 04/24/2010 04/18/2017 Telangiectasias 04/24/2010 04/18/2017 Actinic Damage//Sun-Damaged Skin 04/24/2010 04/18/2017 Porokeratosis 04/24/2010 04/18/2017 Solar Lentigines 04/24/2010 04/18/2017 Congenital pigmented melanocytic nevus 04/24/2010 04/18/2017 Melanocytic Nevus of Trunk: Back 04/24/2010 04/18/2017 Skin tag(s) 04/24/2010 04/18/2017 Viral warts, unspecified 04/24/201003/2017 Edema 02/10/2010 04/18/2017 Unspecified sleep apnea 02/19/200811/11 Overview: CPAP @ 8cm sleep study 12/18/10 Morbid obesity 02/19/2008 12/03/2013 Postphlebetic syndrome with other complication 12/28/2007 04/18/2017 Rosacea 10/02/2007 04/24/2010 Scanty or infrequent menstruation 10/02/2007 12/03/2013 Dysmetabolic syndrome X 04/19/200711/11 Lumbago 08/09/2006 04/18/2017 Essential hypertension, benign 11/23/2005 06/28/2019 documented as of this encounter (statuses as of 10/26/2023) [facility] History of Past illness Narrative* Problem Noted Date Diagnosed Date Resolved Date Strain of right knee and leg 05/18/2016 04/18/2017 Hypoproteinemia 04/14/2016 09/09/2016 Hyponatremia 04/14/2016 09/09/2016 Medication overuse headache 08/22/2014 04/18/2017 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 04/18/2017 Atypical nevus of flank 05/03/2014 0803/2017 Acne vulgaris: inflammatory grade III (chin and jawline face) 03/07/2014 04/18/2017 Dermatofibroma 03/07/2014 04/18/2017 Melanocytic nevi of trunk 03/07/2014 Sebaceous hyperplasia 03/07/20142016 Milial cyst 03/07/2014 04/18/2017 History of irregular menstrual bleeding 12/03/2013 04/18/2017 History of gastric bypass 09/17/2013 Encounter for dietary counse ling and surveillance 04/10/2013 04/18/2017 Type II or unspecified type diabetes mellitus without mention of complication, not stated as uncontrolled 03/30/2013 12/03/2013 Neuralgia, neuritis, and rad iculitis, unspecified 11/29/2012 10/03/2019 Pain in lower limb 10/16/2012 4 Type II or unspecified type diabetes mellitus without mention of complication, not stated as uncontrolled 09/18/2012 12/15/2012 Irregular menstrual cycle 03/03/2012 Abdominal pain, left lower quadrant 03/03/2012 12/03/2013 Dysmenorrhea 03/03/2012 06/28/2019 Hyperpigmentation of skin: under eyelids 02/22/2012 04/18/2017 Surgical Scar: skin of upper lip 10/14/2010 04/18/2017 Tinea corporis 08/25/2010 04/18/2017 Xerosis cutis 08/25/2010 04/18/2017 Obesity 07/15/2010 06/28/2019 Rosacea 04/24/2010 04/18/2017 Telangiectasias 04/24/2010 04/18/2017 Actinic Damage//Sun-Damaged Skin 04/24/2010 04/18/2017 Porokeratosis 04/24/2010 04/18/2017 Solar Lentigines 04/24/2010 04/18/2017 Congenital pigmented melanocytic nevus 04/24/2010 04/18/2017 Melanocytic Nevus of Trunk: Back 04/24/2010 04/18/2017 Skin tag(s) 04/24/2010 04/18/2017 Viral warts, unspecified 04/24/201003/2017 Edema 02/10/2010 04/18/2017 Unspecified sleep apnea 02/19/200811/11 Overview: CPAP @ 8cm sleep study 12/18/10 Morbid obesity 02/19/2008 12/03/2013 Postphlebetic syndrome with other complication 12/28/2007 04/18/2017 Rosacea 10/02/2007 04/24/2010 Scanty or infrequent menstruation 10/02/2007 12/03/2013 Dysmetabolic syndrome X 04/19/200711/11 Lumbago 08/09/2006 04/18/2017 Essential hypertension, benign 11/23/2005 06/28/2019 documented as of this encounter (statuses as of 10/31/2023) [facility] History of Past illness Narrative* Problem Noted Date Diagnosed Date Resolved Date Strain of right knee and leg 05/18/2016 04/18/2017 Hypoproteinemia 04/14/2016 09/09/2016 Hyponatremia 04/14/2016 09/09/2016 Medication overuse headache 08/22/2014 04/18/2017 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 4 04/18/2017 Atypical nevus of flank 05/03/201403/2017 Acne vulgaris: inflammatory grade III (chin and jawline face) 03/07/2014 04/18/2017 Dermatofibroma 03/07/2014 04/18/2017 Melanocytic nevi of trunk 03/07/2014 Sebaceous hyperplasia 03/07/20142016 Milial cyst 03/07/2014 04/18/2017 History of irregular menstrual bleeding 12/03/2013 04/18/2017 History of gastric bypass 09/17/2013 Encounter for dietary counse ling and surveillance 04/10/2013 04/18/2017 Type II or unspecified type diabetes mellitus without mention of complication, not stated as uncontrolled 03/30/2013 12/03/2013 Neuralgia, neuritis, and rad iculitis, unspecified 11/29/2012 10/03/2019 Pain in lower limb 10/16/2012 4 Type II or unspecified type diabetes mellitus without mention of complication, not stated as uncontrolled 09/18/2012 12/15/2012 Irregular menstrual cycle 03/03/2012 Abdominal pain, left lower quadrant 03/03/2012 12/03/2013 Dysmenorrhea 03/03/2012 06/28/2019 Hyperpigmentation of skin: under eyelids 02/22/2012 04/18/2017 Surgical Scar: skin of upper lip 10/14/2010 04/18/2017 Tinea corporis 08/25/2010 04/18/2017 Xerosis cutis 08/25/2010 04/18/2017 Obesity 07/15/2010 06/28/2019 Rosacea 04/24/2010 04/18/2017 Telangiectasias 04/24/2010 04/18/2017 Actinic Damage//Sun-Damaged Skin 04/24/2010 04/18/2017 Porokeratosis 04/24/2010 04/18/2017 Solar Lentigines 04/24/2010 04/18/2017 Congenital pigmented melanocytic nevus 04/24/2010 04/18/2017 Melanocytic Nevus of Trunk: Back 04/24/2010 04/18/2017 Skin tag(s) 04/24/2010 04/18/2017 Viral warts, unspecified 04/24/201003/2017 Edema 02/10/2010 04/18/2017 Unspecified sleep apnea 02/19/200811/11 Overview: CPAP @ 8cm sleep study 12/18/10 Morbid obesity 02/19/2008 12/03/2013 Postphlebetic syndrome with other complication 12/28/2007 04/18/2017 Rosacea 10/02/2007 04/24/2010 Scanty or infrequent menstruation 10/02/2007 12/03/2013 Dysmetabolic syndrome X 04/19/200711/11 Lumbago 08/09/2006 04/18/2017 Essential hypertension, benign 11/23/2005 06/28/2019 documented as of this encounter (statuses as of 11/02/2023) [facility] History of Past illness Narrative* Problem Noted Date Diagnosed Date Resolved Date Strain of right knee and leg 05/18/2016 04/18/2017 Hypoproteinemia 04/14/2016 09/09/2016 Hyponatremia 04/14/2016 09/09/2016 Medication overuse headache 08/22/2014 04/18/2017 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 4 04/18/2017 Atypical nevus of flank 05/03/201403/2017 Acne vulgaris: inflammatory grade III (chin and jawline face) 03/07/2014 04/18/2017 Dermatofibroma 03/07/2014 04/18/2017 Melanocytic nevi of trunk 03/07/2014 Sebaceous hyperplasia 03/07/20142016 Milial cyst 03/07/2014 04/18/2017 History of irregular menstrual bleeding 12/03/2013 04/18/2017 History of gastric bypass 09/17/2013 Encounter for dietary counse ling and surveillance 04/10/2013 04/18/2017 Type II or unspecified type diabetes mellitus without mention of complication, not stated as uncontrolled 03/30/2013 12/03/2013 Neuralgia, neuritis, and rad iculitis, unspecified 11/29/2012 10/03/2019 Pain in lower limb 10/16/2012 4 Type II or unspecified type diabetes mellitus without mention of complication, not stated as uncontrolled 09/18/2012 12/15/2012 Irregular menstrual cycle 03/03/2012 Abdominal pain, left lower quadrant 03/03/2012 12/03/2013 Dysmenorrhea 03/03/2012 06/28/2019 Hyperpigmentation of skin: under eyelids 02/22/2012 04/18/2017 Surgical Scar: skin of upper lip 10/14/2010 04/18/2017 Tinea corporis 08/25/2010 04/18/2017 Xerosis cutis 08/25/2010 04/18/2017 Obesity 07/15/2010 06/28/2019 Rosacea 04/24/2010 04/18/2017 Telangiectasias 04/24/2010 04/18/2017 Actinic Damage//Sun-Damaged Skin 04/24/2010 04/18/2017 Porokeratosis 04/24/2010 04/18/2017 Solar Lentigines 04/24/2010 04/18/2017 Congenital pigmented melanocytic nevus 04/24/2010 04/18/2017 Melanocytic Nevus of Trunk: Back 04/24/2010 04/18/2017 Skin tag(s) 04/24/2010 04/18/2017 Viral warts, unspecified 04/24/201003/2017 Edema 02/10/2010 04/18/2017 Unspecified sleep apnea 02/19/200811/11 Overview: CPAP @ 8cm sleep study 12/18/10 Morbid obesity 02/19/2008 12/03/2013 Postphlebetic syndrome with other complication 12/28/2007 04/18/2017 Rosacea 10/02/2007 04/24/2010 Scanty or infrequent menstruation 10/02/2007 12/03/2013 Dysmetabolic syndrome X 04/19/200711/11 Lumbago 08/09/2006 04/18/2017 Essential hypertension, benign 11/23/2005 06/28/2019 documented as of this encounter (statuses as of 11/03/2023) [facility] [facility]09-06-2016 History of Past illness Narrative* Problem Noted Date Diagnosed Date Resolved Date Strain of right knee and leg 05/18/2016 04/18/2017 Hypoproteinemia 04/14/2016 09/09/2016 Hyponatremia 04/14/2016 09/09/2016 Medication overuse headache 08/22/2014 04/18/2017 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 4 04/18/2017 Atypical nevus of flank 05/03/201403/2017 Acne vulgaris: inflammatory grade III (chin and jawline face) 03/07/2014 04/18/2017 Dermatofibroma 03/07/2014 04/18/2017 Melanocytic nevi of trunk 03/07/2014 Sebaceous hyperplasia 03/07/20142016 Milial cyst 03/07/2014 04/18/2017 History of irregular menstrual bleeding 12/03/2013 04/18/2017 History of gastric bypass 09/17/2013 Encounter for dietary counse ling and surveillance 04/10/2013 04/18/2017 Type II or unspecified type diabetes mellitus without mention of complication, not stated as uncontrolled 03/30/2013 12/03/2013 Neuralgia, neuritis, and rad iculitis, unspecified 11/29/2012 10/03/2019 Pain in lower limb 10/16/2012 03/24/201 4 Type II or unspecified type diabetes mellitus without mention of complication, not stated as uncontrolled 09/18/2012 12/15/2012 Irregular menstrual cycle 03/03/2012 Abdominal pain, left lower quadrant 03/03/2012 12/03/2013 Dysmenorrhea 03/03/2012 06/28/2019 Hyperpigmentation of skin: under eyelids 02/22/2012 04/18/2017 Surgical Scar: skin of upper lip 10/14/2010 04/18/2017 Tinea corporis 08/25/2010 04/18/2017 Xerosis cutis 08/25/2010 04/18/2017 Obesity 07/15/2010 06/28/2019 Rosacea 04/24/2010 04/18/2017 Telangiectasias 04/24/2010 04/18/2017 Actinic Damage//Sun-Damaged Skin 04/24/2010 04/18/2017 Porokeratosis 04/24/2010 04/18/2017 Solar Lentigines 04/24/2010 04/18/2017 Congenital pigmented melanocytic nevus 04/24/2010 04/18/2017 Melanocytic Nevus of Trunk: Back 04/24/2010 04/18/2017 Skin tag(s) 04/24/2010 04/18/2017 Viral warts, unspecified 04/24/201003/2017 Edema 02/10/2010 04/18/2017 Unspecified sleep apnea 02/19/200811/11 Overview: CPAP @ 8cm sleep study 12/18/10 Morbid obesity 02/19/2008 12/03/2013 Postphlebetic syndrome with other complication 12/28/2007 04/18/2017 Rosacea 10/02/2007 04/24/2010 Scanty or infrequent menstruation 10/02/2007 12/03/2013 Dysmetabolic syndrome X 04/19/200711/11 Lumbago 08/09/2006 04/18/2017 Essential hypertension, benign 11/23/2005 06/28/2019 documented as of this encounter (statuses as of 11/09/2023) [facility] complaint Narrative - Reported* Neurologic Evaluation. * An interactive audio and video telecommunication system which permits real time communications between the patient (at the originating site) and provider (at the distant site) was utilized to providethis telehealth service. [id number] Work Phone: Evaluation note* Diagnosis Encounter for screening mammogram for breast cancer [facility] Acquired hypothyroidism Unspecified hypothyroidism [facility]* Diagnosis Tarsal tunnel syndrome, left - BWC- Primary Posterior tibial tendinitis of left lower extremity - BWC DDD (degenerative disc disease), lumbar Degeneration of lumbar or lumbosacral intervertebral disc Lumbar spondylosis Lumbosacral spondylosis without myelopathy Sacroiliitis (HCC) Sacroiliitis, not elsewhere classified Osteoarthritis, generalized Generalized osteoarthrosis, unspecified site Myofascial pain syndrome Mylagia and myositis, unspecified Migraine without status migrainosus, not intractable, unspecified migraine type Idiopathic peripheral neuropathy Unspecified hereditary and idiopathic peripheral neuropathy [facility] Diagnosis Postoperative malabsorption Other and unspecified postsurgical nonabsorption S/P bariatric surgery Bariatric surgery status Overweight with body mass index (BMI) 25.0-29.9 [facility] Diagnosis DDD (degenerative disc disease), lumbar- Primary Degeneration of lumbar or lumbosacral intervertebral disc Lumbar spondylosis Lumbosacral spondylosis without myelopathy Sacroiliitis (HCC) Sacroiliitis, not elsewhere classified Idiopathic peripheral neuropathy Unspecified hereditary and idiopathic peripheral neuropathy Osteoarthritis, generalized Generalized osteoarthrosis, unspecified site Migraine without status migrainosus, not intractable, unspecified migraine type Myofascial pain syndrome Mylagia and myositis, unspecified [facility] Diagnosis Lumbar spondylosis- Primary Lumbosacral spondylosis without myelopathy [facility] Diagnosis Eustachian tube dysfunction, right- Primary [facility] Diagnosis DDD (degenerative disc disease), lumbar- Primary Degeneration of lumbar or lumbosacral intervertebral disc Lumbar spondylosis Lumbosacral spondylosis without myelopathy Sacroiliitis (HCC) Sacroiliitis, not elsewhere classified Idiopathic peripheral neuropathy Unspecified hereditary and idiopathic peripheral neuropathy Osteoarthritis, generalized Generalized osteoarthrosis, unspecified site Migraine without status migrainosus, not intractable, unspecified migraine type Myofascial pain syndrome Mylagia and myositis, unspecified [facility]* Diagnosis Yeast dermatitis- Primary Candidiasis of skin and nails Vaginal discharge Leukorrhea, not specified as infective Superficial dyspareunia documented in this encounter [facility] note* Diagnosis Skin infection- Primary Unspecified local infection of skin and subcutaneous tissue [facility]* Diagnosis Postoperative malabsorption Other and unspecified postsurgical nonabsorption S/P bariatric surgery Bariatric surgery status Overweight with body mass index (BMI) 25.0-29.9 Overweight documented in this encounter [facility] note* Diagnosis Tarsal tunnel syndrome of left side Tarsal tunnel syndrome documented [facility]* Diagnosis Complex regional pain syndrome type 2 of left lower extremity- Primary Complex regional pain syndrome type 2 of left lower extremity documented [facility] this [facility]* Diagnosis DDD (degenerative disc disease), lumbar Degeneration of lumbar or lumbosacral intervertebral disc Complex regional pain syndrome type 2 of left lower extremity documented [facility] this [facility]* Diagnosis Tarsal tunnel syndrome, left - BWC- Primary Posterior tibial tendinitis of left leg - BWC Tibialis tendinitis Post-phlebitic syndrome of lower leg, left - BWC documented in this encounter [facility] note* Diagnosis DDD (degenerative disc disease), lumbar- Primary Degeneration of lumbar or lumbosacral intervertebral disc Lumbar spondylosis Lumbosacral spondylosis without myelopathy Sacroiliitis (HCC) Sacroiliitis, not elsewhere classified Idiopathic peripheral neuropathy Unspecified hereditary and idiopathic peripheral neuropathy Osteoarthritis, generalized Generalized osteoarthrosis, unspecified site Migraine without status migrainosus, not intractable, unspecified migraine type Myofascial pain syndrome Mylagia and myositis, unspecified Lumbar spondylosis Lumbosacral spondylosis without myelopathy documented in this encounter [facility] note* Diagnosis Postoperative malabsorption Other and unspecified postsurgical nonabsorption S/P bariatric surgery Bariatric surgery status Overweight with body mass index (BMI) 25.0-29.9 Overweight Lumbar spondylosis Lumbosacral spondylosis without myelopathy documented in this encounter [facility] noteN/ADept. of Dermatology Evaluation note* Diagnosis Postoperative malabsorption Other and unspecified postsurgical nonabsorption S/P bariatric surgery Bariatric surgery status Overweight with body mass index (BMI) 25.0-29.9 Overweight [facility]* Diagnosis Postoperative malabsorption Other and unspecified postsurgical nonabsorption S/P bariatric surgery Bariatric surgery status Overweight with body mass index (BMI) 25.0-29.9 Overweight [facility]* Diagnosis Encounter for screening mammogram for malignant neoplasm of breast- Primary Other screening mammogram [facility]* Diagnosis Encounter for gynecological examination (general) (routine) without abnormal findings- Primary Encounter for screening mammogram for breast cancer Menopausal symptoms Symptomatic menopausal or female climacteric states [facility]* Diagnosis Tarsal tunnel syndrome, left - BWC- Primary Posterior tibial tendinitis of left leg - BWC Tibialis tendinitis Post-phlebitic syndrome of lower leg, left - BWC Tarsal tunnel syndrome, left [facility]* Diagnosis Chronic migraine w/o aura w/o status migrainosus, not intractable- Primary Migraine with aura, not intractable, without status migrainosus documented in this encounter [facility] Work Phone: Evaluation note* Diagnosis Tarsal tunnel syndrome, left - BWC- Primary [facility]* Diagnosis Tarsal tunnel syndrome of left side- Primary Tarsal tunnel syndrome Tarsal tunnel syndrome, left Tarsal tunnel syndrome, left Tarsal tunnel syndrome, left [facility]* Diagnosis DDD (degenerative disc disease), lumbar- Primary Degeneration of lumbar or lumbosacral intervertebral disc Lumbar spondylosis Lumbosacral spondylosis without myelopathy Sacroiliitis (HCC) Sacroiliitis, not elsewhere classified Idiopathic peripheral neuropathy Unspecified hereditary and idiopathic peripheral neuropathy Osteoarthritis, generalized Generalized osteoarthrosis, unspecified site Myofascial pain syndrome Mylagia and myositis, unspecified Migraine without status migrainosus, not intractable, unspecified migraine type Tarsal tunnel syndrome, left Tarsal tunnel syndrome, left Tarsal tunnel syndrome, left Lumbar spondylosis Lumbosacral spondylosis without myelopathy Lumbar spondylosis Lumbosacral spondylosis without myelopathy [facility] Narrative* The patient was informed about the telehealth clinical encounter including benefits to avoiding travel, limitations of the assessment, and billing for the service. In-office care may be recommended if needed. Telehealth sessions are not being recorded and personal health information is protected. All questions were answered and verbal consent from the patient (or guardian) was obtained to proceed. * Today's appointment is for follow-up of migraines. Last seen 10/02/2020. PCP Dr. Ronnell Yuan, [place]. * I got a concussion --patient. In 01/2021, was on hoverboard on wheels; hit corner of table, hit head (posterior occipital area) on table. Had LOC for < one minute. Went to doctor the following day; was sent to ED in [place] from doctor's office because I wasn't feeling good; my eyes wasn't doing something right . Had CT head; was told she had a mild concussion. Afterward had visual scotomata, saw flashing lights OU everywhere , constant for 8-9 months. Had memory and cognitive problemswhich has improved to normal after 8- 9 months. No dizziness. VILLEGAS were worse following concussion buthave improved. * Went to [facility] 02/2021. Saw Neurology (concussion specialist). No testing done. * Current VILLEGAS frequency, once per week; duration 1/2 day; location R = L hemicranial; severity 8/10. No recent N/V; has photophobia, phonophobia, osmophobia. Has visual scotomata, puentes/dark spots OU, duration < one minute; occurs before VILLEGAS. No dizziness; has speech difficulty noted by family (says w tracy words, duration entire duration of VILLEGAS; no other focal neurological sxs. * Has not missed work due to VILLEGAS (last worked 2 years ago); has missed family activities because of VILLEGAS. * VILLEGAS triggers: weather, stress; no other triggers noted. * VILLEGAS improvement: lidocaine spray in nose Rx by [facility] (see above). No OTC medications. * Taking ZNS 100 mg 4 qhs. Tolerating without significant side effects. [id number] Work Phone: Instructions* Name Dates Details Instructions not documented [id number] Work Phone: Reason for referral (narrative)* Diagnostic Procedure Only (Routine) - Pending Review Specialty Diagnoses / Procedures Referred By Contac t Referred To Contact [facility] Diagnoses Encounter for screening mammogram for breast cancer Procedures ALYSIA SCREENING SCREENING MAMMOGRAPHY BI 2-VIEW BREAST INC CAD Mauro Patiño MD [address] [place] [address] [facility] [address] [place] [address] Referral ID Status Reason Start Date Expiration Date Visits Requested Visits Authorized [id number] Pending Review Auto-Generat ed Referral 03/10/2022 04/09/2023 1 1 [facility] for referral (narrative)* Name Reason for referral NA NA Dept. of Dermatology Reason for referral (narrative)* Diagnostic Procedure Only (Routine) - Pending Review Specialty Diagnoses / Procedures Referred By Contac t Referred To Contact [facility] Diagnoses Encounter for screening mammogram for malignant neoplasm of breast Procedures ALYSIA SCREENING SCREENING MAMMOGRAPHY BI 2-VIEW BREAST INC CAD Gertrude Romero, LEAFLET OR NEWSPAPER DELIVERER.CLINICAL SCIENCES PROFESSOR [address] [place] [address] [facility] [address] [place] [address] Referral ID Status Reason Start Date Expiration Date Visits Requested Visits Authorized [id number] Pending Review Auto-Generat ed Referral 06/02/2023 07/01/2024 1 1 [facility] for referral (narrative)* Diagnostic Procedure Only (Routine) - Authorized Specialty Diagnoses / Procedures Referred By Contac t Referred To Contact [facility] Diagnoses Encounter for screening mammogram for breast cancer Procedures ALYSIA SCREENING SCREENING MAMMOGRAPHY BI 2-VIEW BREAST INC CAD Gertrude Romero, ANTIONE.CLINICAL SCIENCES PROFESSOR [address] [place] [address] [facility] [address] [place] [address] Referral ID Status Reason Start Date Expiration Date Visits Requested Visits Authorized [id number] Authorized Auto-Generat ed Referral 08/10/2024 1 1 [facility] Summary Purpose Family History No Family History Records Found Mother Name Dates Details Family history of (7 99.9, R99) Status:Active Family history of Brain hemo rrhage open without coma(853.11, S06.300A) Status:Active Family history of lung cance r(V16.1, Z80.1) Status:Active Father Name Dates Details Family history of cerebrovas cular accident (CVA)(V17.1, Z82.3) Status:Active Family history of (7 99.9, R99) Status:Active Family history of myocardial infarction(V17.3, Z82.49) Status:Active Family history of migraine h eadaches(V17.2, Z82.0) Status:Active Brother Name Dates Details Family history of migraine h eadaches(V17.2, Z82.0) Status:Active Unknown Family Member Name Dates Details : Mother, Father Status:Active Brain hemorrhage open withou t coma: Mother Status:Active Family history of myocardial infarction: Father(V17.3, Z82.49) Status:Active Family history of cerebrovas cular accident (CVA): Father(V17.1, Z82.3) Status:Active Denies Family history of cer ebral aneurysm: Mother(V17.1, Z82.49) Status: Family history of migraine h eadaches: Father, Brother(V17.2, Z82.0) Status:Active Family history of lung cance r: Mother(V16.1, Z80.1) Status:Active Unknown Family Member Name Dates Details Family history of lung cance r: Mother(V16.1, Z80.1) Status:Active Family history of migraine h eadaches: Father, Brother(V17.2, Z82.0) Status:Active Denies Family history of cer ebral aneurysm: Mother(V17.1, Z82.49) Status: Family history of cerebrovas cular accident (CVA): Father(V17.1, Z82.3) Status:Active Family history of myocardial infarction: Father(V17.3, Z82.49) Status:Active Brain hemorrhage open withou t coma: Mother Status:Active : Mother, Father Status:Active Unknown Family Member Name Dates Details : Mother, Father Status:Active Brain hemorrhage open withou t coma: Mother Status:Active Family history of myocardial infarction: Father(V17.3, Z82.49) Status:Active Family history of migraine h eadaches: Father, Brother(V17.2, Z82.0) Status:Active Family history of cerebrovas cular accident (CVA): Father(V17.1, Z82.3) Status:Active Family history of lung cance r: Mother(V16.1, Z80.1) Status:Active Denies Family history of cer ebral aneurysm: Mother(V17.1, Z82.49) Status: Advance Directives No Advanced Directives Records FoundNo Advanced Directives Records FoundNo Advanced Directives Records FoundNo Advanced Directives Records FoundNo Advanced Directives Records FoundNo Advanced Directives Records FoundNo Advanced Directives Records FoundNo Advanced Directives Records Found Reason for Referral Specialty Diagnoses / Procedures Referred By Contac t Referred To Contact Diagnoses Tarsal tunnel syndrome, left Ronald Nolan PA-C [address] [place] [address] Referral ID Status Reason Start Date Expiration Date Visits Re quested Visits Authorized [id number] Closed 1 1 Specialty Diagnoses / Procedures Referred By Contac t Referred To Contact Diagnoses Postoperative malabsorption S/P bariatric surgery Overweight with body mass index (BMI) 25.0-29.9 Ronald Nolan PA-C [address] [place] [address] Referral ID Status Reason Start Date Expiration Date Visits Re quested Visits Authorized [id number] Closed 1 1 Referral ID Status Reason Start Date Expiration Date Visits Re quested Visits Authorized [id number] Closed 1 1 Specialty Diagnoses / Procedures Referred By Contac t Referred To Contact Diagnoses Tarsal tunnel syndrome of left side Ronald Nolan PA-C [address] [place] [address] Referral ID Status Reason Start Date Expiration Date Visits Re quested Visits Authorized [id number] Closed 1 1 Referral ID Status Reason Start Date Expiration Date Visits Re quested Visits Authorized [id number] Closed 1 1 Referral ID Status Reason Start Date Expiration Date Visits Re quested Visits Authorized [id number] Closed 1 1 Specialty Diagnoses / Procedures Referred By Contac t Referred To Contact Ronald Nolan PA-C [address] [place] [address] Referral ID Status Reason Start Date Expiration Date Visits Re quested Visits Authorized [id number] Closed 1 1 Additional Source Comments INFORMATION SOURCE (unrecogn ized section and content) DATE CREATED AUTHOR AUTHOR'S ORGANIZ ATION 11/02/2021 [facility] DATE CREATED AUTHOR AUTHOR'S ORGANIZ ATION 02/26/2022 [facility] [place] DATE CREATED AUTHOR AUTHOR'S ORGANIZ ATION 05/26/2023 [employer] DATE CREATED AUTHOR AUTHOR'S ORGANIZ ATION 06/16/2023 [facility] DATE CREATED AUTHOR AUTHOR'S ORGANIZ ATION 07/13/2023 [facility] DATE CREATED AUTHOR AUTHOR'S ORGANIZ ATION 09/18/2023 [facility] DATE CREATED AUTHOR AUTHOR'S ORGANIZ ATION 11/11/2023 [facility] n[facility] Source Comments (unrecognize d section and content) In the event this informatio n is protected by the Federal Confidentiality of Alcohol and Drug Abuse Patient Records regulations: The Federal rules restrict any use of the information to criminally investigate or prosecute any alcohol or drug abuse patient.[facility] the event this information is protected by the Federal Confidentiality of Alcohol and Drug Abuse Patient Records regulations: The Federal rules restrict any use of the information to criminally investigate or prosecute any alcohol or drug abuse patient.[facility] the event this information is protected by the Federal Confidentiality of Alcohol and Drug Abuse Patient Records regulations: The Federal rules restrict any use of the information to criminally investigate or prosecute any alcohol or drug abuse patient.[facility] the event this information is protected by the Federal Confidentiality of Alcohol and Drug Abuse Patient Records regulations: The Federal rules restrict any use of the information to criminally investigate or prosecute any alcohol or drug abuse patient.[facility] the event this information is protected by the Federal Confidentiality of Alcohol and Drug Abuse Patient Records regulations: The Federal rules restrict any use of the information to criminally investigate or prosecute any alcohol or drug abuse patient.[facility] the event this information is protected by the Federal Confidentiality of Alcohol and Drug Abuse Patient Records regulations: The Federal rules restrict any use of the information to criminally investigate or prosecute any alcohol or drug abuse patient.[facility] the event this information is protected by the Federal Confidentiality of Alcohol and Drug Abuse Patient Records regulations: The Federal rules restrict any use of the information to criminally investigate or prosecute any alcohol or drug abuse patient.[facility] the event this information is protected by the Federal Confidentiality of Alcohol and Drug Abuse Patient Records regulations: The Federal rules restrict any use of the information to criminally investigate or prosecute any alcohol or drug abuse patient.[facility] the event this information is protected by the Federal Confidentiality of Alcohol and Drug Abuse Patient Records regulations: The Federal rules restrict any use of the information to criminally investigate or prosecute any alcohol or drug abuse patient.[facility] the event this information is protected by the Federal Confidentiality of Alcohol and Drug Abuse Patient Records regulations: The Federal rules restrict any use of the information to criminally investigate or prosecute any alcohol or drug abuse patient.[facility] the event this information is protected by the Federal Confidentiality of Alcohol and Drug Abuse Patient Records regulations: The Federal rules restrict any use of the information to criminally investigate or prosecute any alcohol or drug abuse patient.[facility] the event this information is protected by the Federal Confidentiality of Alcohol and Drug Abuse Patient Records regulations: The Federal rules restrict any use of the information to criminally investigate or prosecute any alcohol or drug abuse patient.[facility] the event this information is protected by the Federal Confidentiality of Alcohol and Drug Abuse Patient Records regulations: The Federal rules restrict any use of the information to criminally investigate or prosecute any alcohol or drug abuse patient.[facility] the event this information is protected by the Federal Confidentiality of Alcohol and Drug Abuse Patient Records regulations: The Federal rules restrict any use of the information to criminally investigate or prosecute any alcohol or drug abuse patient.[facility] HospitalIn the event this information is protected by the Federal Confidentiality of Alcohol and Drug Abuse Patient Records regulations: The Federal rules restrict any use of the information to criminally investigate or prosecute any alcohol or drug abuse patient.[facility] HospitalIn the event this information is protected by the Federal Confidentiality of Alcohol and Drug Abuse Patient Records regulations: The Federal rules restrict any use of the information to criminally investigate or prosecute any alcohol or drug abuse patient.[facility] HospitalIn the event this information is protected by the Federal Confidentiality of Alcohol and Drug Abuse Patient Records regulations: The Federal rules restrict any use of the information to criminally investigate or prosecute any alcohol or drug abuse patient.[facility] HospitalIn the event this information is protected by the Federal Confidentiality of Alcohol and Drug Abuse Patient Records regulations: The Federal rules restrict any use of the information to criminally investigate or prosecute any alcohol or drug abuse patient.[facility] HospitalIn the event this information is protected by the Federal Confidentiality of Alcohol and Drug Abuse Patient Records regulations: The Federal rules restrict any use of the information to criminally investigate or prosecute any alcohol or drug abuse patient.[facility] HospitalIn the event this information is protected by the Federal Confidentiality of Alcohol and Drug Abuse Patient Records regulations: The Federal rules restrict any use of the information to criminally investigate or prosecute any alcohol or drug abuse patient.[facility] HospitalIn the event this information is protected by the Federal Confidentiality of Alcohol and Drug Abuse Patient Records regulations: The Federal rules restrict any use of the information to criminally investigate or prosecute any alcohol or drug abuse patient.[facility] HospitalIn the event this information is protected by the Federal Confidentiality of Alcohol and Drug Abuse Patient Records regulations: The Federal rules restrict any use of the information to criminally investigate or prosecute any alcohol or drug abuse patient.[facility] HospitalIn the event this information is protected by the Federal Confidentiality of Alcohol and Drug Abuse Patient Records regulations: The Federal rules restrict any use of the information to criminally investigate or prosecute any alcohol or drug abuse patient.[facility] HospitalIn the event this information is protected by the Federal Confidentiality of Alcohol and Drug Abuse Patient Records regulations: The Federal rules restrict any use of the information to criminally investigate or prosecute any alcohol or drug abuse patient.[facility] HospitalIn the event this information is protected by the Federal Confidentiality of Alcohol and Drug Abuse Patient Records regulations: The Federal rules restrict any use of the information to criminally investigate or prosecute any alcohol or drug abuse patient.[facility] HospitalIn the event this information is protected by the Federal Confidentiality of Alcohol and Drug Abuse Patient Records regulations: The Federal rules restrict any use of the information to criminally investigate or prosecute any alcohol or drug abuse patient.[facility] HospitalIn the event this information is protected by the Federal Confidentiality of Alcohol and Drug Abuse Patient Records regulations: The Federal rules restrict any use of the information to criminally investigate or prosecute any alcohol or drug abuse patient.[facility] HospitalIn the event this information is protected by the Federal Confidentiality of Alcohol and Drug Abuse Patient Records regulations: The Federal rules restrict any use of the information to criminally investigate or prosecute any alcohol or drug abuse patient.[facility] HospitalIn the event this information is protected by the Federal Confidentiality of Alcohol and Drug Abuse Patient Records regulations: The Federal rules restrict any use of the information to criminally investigate or prosecute any alcohol or drug abuse patient.[facility] HospitalIn the event this information is protected by the Federal Confidentiality of Alcohol and Drug Abuse Patient Records regulations: The Federal rules restrict any use of the information to criminally investigate or prosecute any alcohol or drug abuse patient.[facility] HospitalIn the event this information is protected by the Federal Confidentiality of Alcohol and Drug Abuse Patient Records regulations: The Federal rules restrict any use of the information to criminally investigate or prosecute any alcohol or drug abuse patient.[facility] HospitalIn the event this information is protected by the Federal Confidentiality of Alcohol and Drug Abuse Patient Records regulations: The Federal rules restrict any use of the information to criminally investigate or prosecute any alcohol or drug abuse patient.[facility] HospitalIn the event this information is protected by the Federal Confidentiality of Alcohol and Drug Abuse Patient Records regulations: The Federal rules restrict any use of the information to criminally investigate or prosecute any alcohol or drug abuse patient.[facility] HospitalIn the event this information is protected by the Federal Confidentiality of Alcohol and Drug Abuse Patient Records regulations: The Federal rules restrict any use of the information to criminally investigate or prosecute any alcohol or drug abuse patient.[facility] HospitalIn the event this information is protected by the Federal Confidentiality of Alcohol and Drug Abuse Patient Records regulations: The Federal rules restrict any use of the information to criminally investigate or prosecute any alcohol or drug abuse patient.[facility] HospitalIn the event this information is protected by the Federal Confidentiality of Alcohol and Drug Abuse Patient Records regulations: The Federal rules restrict any use of the information to criminally investigate or prosecute any alcohol or drug abuse patient.[facility] HospitalIn the event this information is protected by the Federal Confidentiality of Alcohol and Drug Abuse Patient Records regulations: The Federal rules restrict any use of the information to criminally investigate or prosecute any alcohol or drug abuse patient.[facility] HospitalIn the event this information is protected by the Federal Confidentiality of Alcohol and Drug Abuse Patient Records regulations: The Federal rules restrict any use of the information to criminally investigate or prosecute any alcohol or drug abuse patient.[facility] HospitalIn the event this information is protected by the Federal Confidentiality of Alcohol and Drug Abuse Patient Records regulations: The Federal rules restrict any use of the information to criminally investigate or prosecute any alcohol or drug abuse patient.[facility] HospitalIn the event this information is protected by the Federal Confidentiality of Alcohol and Drug Abuse Patient Records regulations: The Federal rules restrict any use of the information to criminally investigate or prosecute any alcohol or drug abuse patient.[facility] HospitalIn the event this information is protected by the Federal Confidentiality of Alcohol and Drug Abuse Patient Records regulations: The Federal rules restrict any use of the information to criminally investigate or prosecute any alcohol or drug abuse patient.[facility] HospitalIn the event this information is protected by the Federal Confidentiality of Alcohol and Drug Abuse Patient Records regulations: The Federal rules restrict any use of the information to criminally investigate or prosecute any alcohol or drug abuse patient.[facility] HospitalIn the event this information is protected by the Federal Confidentiality of Alcohol and Drug Abuse Patient Records regulations: The Federal rules restrict any use of the information to criminally investigate or prosecute any alcohol or drug abuse patient.[facility] HospitalIn the event this information is protected by the Federal Confidentiality of Alcohol and Drug Abuse Patient Records regulations: The Federal rules restrict any use of the information to criminally investigate or prosecute any alcohol or drug abuse patient.[facility] HospitalIn the event this information is protected by the Federal Confidentiality of Alcohol and Drug Abuse Patient Records regulations: The Federal rules restrict any use of the information to criminally investigate or prosecute any alcohol or drug abuse patient.[facility] HospitalIn the event this information is protected by the Federal Confidentiality of Alcohol and Drug Abuse Patient Records regulations: The Federal rules restrict any use of the information to criminally investigate or prosecute any alcohol or drug abuse patient.[facility] HospitalIn the event this information is protected by the Federal Confidentiality of Alcohol and Drug Abuse Patient Records regulations: The Federal rules restrict any use of the information to criminally investigate or prosecute any alcohol or drug abuse patient.[facility] HospitalIn the event this information is protected by the Federal Confidentiality of Alcohol and Drug Abuse Patient Records regulations: The Federal rules restrict any use of the information to criminally investigate or prosecute any alcohol or drug abuse patient.[facility] HospitalIn the event this information is protected by the Federal Confidentiality of Alcohol and Drug Abuse Patient Records regulations: The Federal rules restrict any use of the information to criminally investigate or prosecute any alcohol or drug abuse patient.[facility] HospitalIn the event this information is protected by the Federal Confidentiality of Alcohol and Drug Abuse Patient Records regulations: The Federal rules restrict any use of the information to criminally investigate or prosecute any alcohol or drug abuse patient.[facility] HospitalIn the event this information is protected by the Federal Confidentiality of Alcohol and Drug Abuse Patient Records regulations: The Federal rules restrict any use of the information to criminally investigate or prosecute any alcohol or drug abuse patient.[facility] HospitalIn the event this information is protected by the Federal Confidentiality of Alcohol and Drug Abuse Patient Records regulations: The Federal rules restrict any use of the information to criminally investigate or prosecute any alcohol or drug abuse patient.[facility] HospitalIn the event this information is protected by the Federal Confidentiality of Alcohol and Drug Abuse Patient Records regulations: The Federal rules restrict any use of the information to criminally investigate or prosecute any alcohol or drug abuse patient.[facility] HospitalIn the event this information is protected by the Federal Confidentiality of Alcohol and Drug Abuse Patient Records regulations: The Federal rules restrict any use of the information to criminally investigate or prosecute any alcohol or drug abuse patient.[facility] Reason for Visit (unrecogniz ed section and content) Reason Onset Date Comments Refill Request 01/15/2022 Reason Onset Date Comments Refill Request 04/09/2022 Reason Onset Date Comments Refill Request 05/07/2022 Reason Onset Date Comments Refill Request 06/04/2022 Reason Comments Refill Request Reason Comments Pain Specialty Diagnoses / Procedures Referred By Contmia t Referred To Contact PAIN MANAGEMENT Diagnoses follow up injections [facility] CLAIM#[id number] Procedures REFERRAL TO [facility]SEL[facility] Self Pain [address] [address] Referral ID Status Reason Start Date Expiration Date Visits Requested Visits Authorized [id number] Outside PCP Patient Cleared - Admin/Chair man/Directo r advise to proceed 05/19/2022 07/18/2022 1 1 Reason Comments zonegran request Reason Onset Date Comments Refill Request 06/25/2022 duloxetine dose Reason Comments Back Pain Specialty Diagnoses / Procedures Referred By Contact Referred To Contact Anesthesiology / PAIN MANAGEMENT Diagnoses FOLLOW UP Procedures EST PATIENT Mauro Patiño MD [address] [place] [address] Mao Hickman MD [address] [place] [address] Referral ID Status Reason Start Date Expiration Date Visits Requested Visits Authorized [id number] Ref Not Required Financial Clearance Not Required 2 09/28/2022 1 1 Specialty Diagnoses / Procedures Referred By Contac t Referred To Contact Diagnoses Lumbar spondylosis Procedures DSTR NROLYTC AGNT PARVERTEB FCT SNGL LMBR/SACRAL DSTR NROLYTC AGNT PARVERTEB FCT ADDL LMBR/SACRAL DSTR NROLYTC AGNT PARVERTEB FCT ADDL LMBR/SACRAL DESTRUCTION BY NEUROLYTIC AGENT PARAVERTEBRAL FACET JOINT NERVE(S) W/ IMAGING GUIDANCE LUMBAR SINGLE FACET JOINT DESTRUCTION BY NEUROLYTIC AGENT PARAVERTEBRAL FACET JOINT NERVE(S) W/ IMAGING GUIDANCE LUMBAR SACRAL 1ST ADD FACET JOINT DESTRUCTION BY NEUROLYTIC AGENT PARAVERTEBRAL FACET JOINT NERVE(S) W/ IMAGING GUIDANCE LUMBAR SACRAL 1ST ADD FACET JOINT BILATERAL Pain [facility] Procedures [address] [place] [address] Referral ID Status Reason Start Date Expiration Date Visits Re quested Visits Authorized [id number] 1 1 Reason Comments Ear Pain right x 1 week Reason Comments New Patient Pain after intercour se Reason Comments left foot 4th toe infection X 1 week Specialty Diagnoses / Procedures Referred By Contac t Referred To Contact Diagnoses Tarsal tunnel syndrome of left side Procedures INJECTION ANES LMBR/THRC PARAVERTBRL SYMPATHETIC BLOCK LUMBAR PARAVERTEBRAL SYMPATHETIC W/ C-ARM Pain Pal Procedures [address] [place] [address] Referral ID Status Reason Start Date Expiration Date Visits Re quested Visits Authorized [id number] 1 1 Reason Onset Date Comments Refill Request 10/06/2022 Specialty Diagnoses / Procedures Referred By Gracie t Referred To Contact Diagnoses Tarsal tunnel syndrome of left side Tarsal tunnel syndrome of left side [G57.52] Procedures INJECTION ANES LMBR/THRC PARAVERTBRL SYMPATHETIC BLOCK LUMBAR PARAVERTEBRAL SYMPATHETIC W/ C-ARM Pain Pal Procedures [address] [place] [address] Referral ID Status Reason Start Date Expiration Date Visits Re quested Visits Authorized [id number] 1 1 Specialty Diagnoses / Procedures Referred By Gracie t Referred To Contact Diagnoses Tarsal tunnel syndrome of left side Tarsal tunnel syndrome of left side [G57.52] Procedures INJECTION ANES LMBR/THRC PARAVERTBRL SYMPATHETIC BLOCK LUMBAR PARAVERTEBRAL SYMPATHETIC Pain Pal Procedures [address] [place] [address] Referral ID Status Reason Start Date Expiration Date Visits Re quested Visits Authorized [id number] 1 1 Reason Comments Cx procedures Specialty Diagnoses / Procedures Referred By Gracie t Referred To Contact Diagnoses Idiopathic peripheral neuropathy Procedures INJECTION ANES LMBR/THRC PARAVERTBRL SYMPATHETIC BLOCK LUMBAR PARAVERTEBRAL SYMPATHETIC W/ C-ARM Pain [facility] Procedures [address] [place] [address] Referral ID Status Reason Start Date Expiration Date Visits Re quested Visits Authorized [id number] 1 1 Reason Onset Date Comments Refill Request 11/04/2022 Specialty Diagnoses / Procedures Referred By Gracie t Referred To Contact Diagnoses Lumbar spondylosis Procedures DSTR NROLYTC AGNT PARVERTEB FCT SNGL LMBR/SACRAL DSTR NROLYTC AGNT PARVERTEB FCT ADDL LMBR/SACRAL DSTR NROLYTC AGNT PARVERTEB FCT ADDL LMBR/SACRAL DESTRUCTION BY RADIO FREQUENCY ABLATION PARAVERTEBRAL FACET JOINT NERVE(S) W/ IMAGING GUIDANCE LUMBAR/SACRAL SINGLE FACET JOINT DESTRUCTION BY RADIO FREQUENCY ABLATION PARAVERTEBRAL FACET JOINT NERVE(S) W/ IMAGING GUIDANCE LUMBAR/SACRAL EA ADD'L FACET JOINT DESTRUCTION BY NEUROLYTIC AGENT PARAVERTEBRAL FACET JOINT NERVE(S) W/ IMAGING GUIDANCE LUMBAR SACRAL 1ST ADD FACET JOINT BILATERAL Pain [facility] [address] [place] [address] Referral ID Status Reason Start Date Expiration Date Visits Re quested Visits Authorized [id number] 1 1 Reason Onset Date Comments Refill Request 11/09/2022 Referral ID Status Reason Start Date Expiration Date Visits Re quested Visits Authorized [id number] 1 1 Specialty Diagnoses / Procedures Referred By Contac t Referred To Contact Diagnoses Complex regional pain syndrome type 2 of left lower extremity Complex regional pain syndrome type 2 of left lower extremity [G57.72] Procedures INJECTION ANES LMBR/THRC PARAVERTBRL SYMPATHETIC BLOCK LUMBAR PARAVERTEBRAL SYMPATHETIC W/ C-ARM Pain Pal Procedures [address] [place] [address] Referral ID Status Reason Start Date Expiration Date Visits Re quested Visits Authorized [id number] 1 1 Reason Onset Date Comments Refill Request 11/19/2022 Reason Comments Pain Left leg pain Specialty Diagnoses / Procedures Referred By Contac t Referred To Contact Diagnoses Complex regional pain syndrome type 2 of left lower extremity Complex regional pain syndrome type 2 of left lower extremity [G57.72] Procedures INJECTION ANES LMBR/THRC PARAVERTBRL SYMPATHETIC BLOCK LUMBAR PARAVERTEBRAL SYMPATHETIC W/ C-ARM Pain Pal Procedures [address] [place] [address] Reason Onset Date Comments Refill Request 06/30/2022 Reason Onset Date Comments Refill Request 01/18/2023 Reason Onset Date Comments Refill Request 04/07/2023 Reason Onset Date Comments Refill Request 05/19/2023 Reason Comments Orders Reason Comments Patient Update Reason Comments Yearly Exam Reason Comments Pain Left leg pain [facility] Specialty Diagnoses / Procedures Referred By Contact Referred To Contact Anesthesiology / PAIN MANAGEMENT Diagnoses WC follow up Procedures REFERRAL TO [facility] EST PATIENT Self Mao Hickman MD [address] [place] [address] Referral ID Status Reason Start Date Expiration Date Visits Re quested Visits Authorized [id number] Closed 07/25/2023 07/25/2023 1 1 Specialty Diagnoses / Procedures Referred By Contac t Referred To Contact Diagnoses Tarsal tunnel syndrome, left Procedures INJECTION ANES LMBR/THRC PARAVERTBRL SYMPATHETIC BLOCK LUMBAR PARAVERTEBRAL SYMPATHETIC W/ C-ARM Pain Pal Procedures [address] [place] [address] Referral ID Status Reason Start Date Expiration Date Visits Re quested Visits Authorized [id number] 1 1 Reason Comments New cases needed Reason Comments LSB setup Specialty Diagnoses / Procedures Referred By Contac t Referred To Contact Diagnoses Tarsal tunnel syndrome, left Procedures INJECTION ANES LMBR/THRC PARAVERTBRL SYMPATHETIC BLOCK NERVE PARAVERTEBRAL WITH C-ARM Pain Pal Procedures [address] [place] [address] Referral ID Status Reason Start Date Expiration Date Visits Re quested Visits Authorized [id number] 1 1 Reason Comments Pt asking for Valium for procedure Referral ID Status Reason Start Date Expiration Date Visits Re quested Visits Authorized [id number] 1 1 Care Teams (unrecognized sec tion and content) Turbine Inspector Relationship Specialty Start Date End Date Mauro Patiño MD [address] [place] [address] PCP - General Internal Medicine 09/08/21 Maxine Rivas Primary Staff Physician Cardiology 11/28/18 Turbine Inspector Relationship Specialty Start Date End Date Mauro Patiño MD [address] [place], [place] [id number] PCP - General Internal Medicine 09/08/21 Maxine Rivas Primary Staff Physician Cardiology 11/28/18 Turbine Inspector Relationship Specialty Start Date End Date Mauro Patiño MD [address] [place] [address] PCP - General Internal Medicine 09/08/21 Maxine Rivas Primary Staff Physician Cardiology 11/28/18 Turbine Inspector Relationship Specialty Start Date End Date Mauro Patiño MD [address] [place] [address] PCP - General Internal Medicine 09/08/21 Maxine Rivas Primary Staff Physician Cardiology 11/28/18 Turbine Inspector Relationship Specialty Start Date End Date Mauro Patiño MD [address] [place] [address] PCP - General Internal Medicine 09/08/21 Maxine Rivas Primary Staff Physician Cardiology 11/28/18 Turbine Inspector Relationship Specialty Start Date End Date Mauro Patiño MD [address] [place] [address] PCP - General Internal Medicine 09/08/21 Maxine Rivas Primary Staff Physician Cardiology 11/28/18 Turbine Inspector Relationship Specialty Start Date End Date Mauro Patiño MD [address] [place] [address] PCP - General Internal Medicine 09/08/21 Maxine Rivas Primary Staff Physician Cardiology 11/28/18 Turbine Inspector Relationship Specialty Start Date End Date Mauro Patiño MD [address] [place] [address] PCP - General Internal Medicine 09/08/21 Maxine Rivas Primary Staff Physician Cardiology 11/28/18 Turbine Inspector Relationship Specialty Start Date End Date Mauro Patiño MD [address] [place] [address] PCP - General Internal Medicine 09/08/21 Maxine Rivas Primary Staff Physician Cardiology 11/28/18 Turbine Inspector Relationship Specialty Start Date End Date Mauro Patiño MD [address] [place] [address] PCP - General Internal Medicine 09/08/21 Tay Rivaslas Primary Staff Physician Cardiology 11/28/18 Turbine Inspector Relationship Specialty Start Date End Date Mauro Patiño MD [address] [place] [address] PCP - General Internal Medicine 09/08/21 Maxine Rivas Primary Staff Physician Cardiology 11/28/18 Turbine Inspector Relationship Specialty Start Date End Date Maxine Rivas Primary Staff Physician Cardiology 11/28/18 Turbine Inspector Relationship Specialty Start Date End Date Maxine Rivas Primary Staff Physician Cardiology 11/28/18 Turbine Inspector Relationship Specialty Start Date End Date Maxine Rivas Primary Staff Physician Cardiology 11/28/18 Turbine Inspector Relationship Specialty Start Date End Date Maxine Rivas Primary Staff Physician Cardiology 11/28/18 Turbine Inspector Relationship Specialty Start Date End Date Maxine Rivas Primary Staff Physician Cardiology 11/28/18 Turbine Inspector Relationship Specialty Start Date End Date Maxine Rivas Primary Staff Physician Cardiology 11/28/18 Turbine Inspector Relationship Specialty Start Date End Date Maxine Rivas Primary Staff Physician Cardiology 11/28/18 Turbine Inspector Relationship Specialty Start Date End Date Maxine Rivas Primary Staff Physician Cardiology 11/28/18 Turbine Inspector Relationship Specialty Start Date End Date Maxine Rivas Primary Staff Physician Cardiology 11/28/18 Turbine Inspector Relationship Specialty Start Date End Date Maxine Rivas Primary Staff Physician Cardiology 11/28/18 Turbine Inspector Relationship Specialty Start Date End Date Maxine Rivas Primary Staff Physician Cardiology 11/28/18 Turbine Inspector Relationship Specialty Start Date End Date Maxine Rivas Primary Staff Physician Cardiology 11/28/18 Turbine Inspector Relationship Specialty Start Date End Date Maxine Rivas Primary Staff Physician Cardiology 11/28/18 Turbine Inspector Relationship Specialty Start Date End Date Maxine Rivas Primary Staff Physician Cardiology 11/28/18 Turbine Inspector Relationship Specialty Start Date End Date Ronnell Yuan MD [address] [place] [address] [address] [place] [address] PCP - General Family Medicine 11/26/22 Maxine Rivas Primary Staff Physician Cardiology 11/28/18 Turbine Inspector Relationship Specialty Start Date End Date Ronnell Yuan MD [address] [facility] [address] [place] [address] PCP - General Family Medicine 11/26/22 Maxine Rivas Primary Staff Physician Cardiology 11/28/18 Turbine Inspector Relationship Specialty Start Date End Date Mauro Patiño MD [address] [place] [address] PCP - General Internal Medicine 09/08/21 07/11/22 Mauro Patiño MD [address] [place] [address] PCP - General Internal Medicine 08/04/22 08/04/22 Ronnell Yuan MD [address] [facility] [address] [place] [address] PCP - General Family Medicine 11/26/22 Maxine Rivas Primary Staff Physician Cardiology 11/28/18 Turbine Inspector Relationship Specialty Start Date End Date Ronnell Yuan MD [address] [place] [address] [address] [place] [address] PCP - General Family Medicine 11/26/22 Maxine Rivas Primary Staff Physician Cardiology 11/28/18 Turbine Inspector Relationship Specialty Start Date End Date Ronnell Yuan MD [address] [facility] [address] [place] [address] PCP - General Family Medicine 11/26/22 Mxaine Rivas Primary Staff Physician Cardiology 11/28/18 Turbine Inspector Relationship Specialty Start Date End Date Ronnell Yuan MD [address] [place] [address] [address] [place] [address] PCP - General Family Medicine 11/26/22 Maxine Rivas Primary Staff Physician Cardiology 11/28/18 Turbine Inspector Relationship Specialty Start Date End Date Ronnell Yuan MD [address] [facility] [address] [place] [address] PCP - General Family Medicine 11/26/22 Maxine Rivas Primary Staff Physician Cardiology 11/28/18 Turbine Inspector Relationship Specialty Start Date End Date Ronnell Yuan MD [address] [facility] [address] [place] [address] PCP - General Family Medicine 11/26/22 Maxine Rivas Primary Staff Physician Cardiology 11/28/18 Turbine Inspector Relationship Specialty Start Date End Date Ronnell Yuan MD [address] [facility] [address] [place] [address] PCP - General Family Medicine 11/26/22 Maxine Rivas Primary Staff Physician Cardiology 11/28/18 Turbine Inspector Relationship Specialty Start Date End Date Ronnell Yuan MD [address] [facility] [address] [place] [address] PCP - General Family Medicine 11/26/22 Maxine Rivas Primary Staff Physician Cardiology 11/28/18 Turbine Inspector Relationship Specialty Start Date End Date Ronnell Yuan MD [address] [facility] [address] [place] [address] PCP - General Family Medicine 11/26/22 Maxine Rivas Primary Staff Physician Cardiology 11/28/18 Turbine Inspector Relationship Specialty Start Date End Date Ronnell Yuan MD [address] [facility] [address] [place] [address] PCP - General Family Medicine 11/26/22 Maxine Rivas Primary Staff Physician Cardiology 11/28/18 Turbine Inspector Relationship Specialty Start Date End Date Ronnell Yuan MD PCP - General 12/13/17 Turbine Inspector Relationship Specialty Start Date End Date Ronnell Yuan MD [address] [facility] [address] [place] [address] PCP - General Family Medicine 11/26/22 Maxine Rivas Primary Staff Physician Cardiology 11/28/18 Turbine Inspector Relationship Specialty Start Date End Date Ronnell Yuan MD [address] [facility] [address] [place] [address] PCP - General Family Medicine 11/26/22 Maxine Rivas Primary Staff Physician Cardiology 11/28/18 Turbine Inspector Relationship Specialty Start Date End Date Ronnell Yuan MD [address] [facility] [address] [place] [address] PCP - General Family Medicine 11/26/22 Maxine Rivas Primary Staff Physician Cardiology 11/28/18 Turbine Inspector Relationship Specialty Start Date End Date Ronnell Yuan MD [address] [facility] [address] [place] [address] PCP - General Family Medicine 11/26/22 Maxine Rivas Primary Staff Physician Cardiology 11/28/18 Turbine Inspector Relationship Specialty Start Date End Date Ronnell Yuan MD [address] [facility] [address] [place] [address] PCP - General Family Medicine 11/26/22 Maxine Rivas Primary Staff Physician Cardiology 11/28/18 Turbine Inspector Relationship Specialty Start Date End Date Ronnell Yuan MD [address] [facility] [address] [place] [address] PCP - General Family Medicine 11/26/22 Maxine Rivas Primary Staff Physician Cardiology 11/28/18 PRN Active and Recently Administ ered Medications (unrecognized section and content) PRN Medication Order 10/31/2022 11/01/2022 11/02/2022 bacteriostatic sodium chloride 0.9% injection (CANCELED) X (OR/PROCEDURE) PRN, Starting on Tue11/02/22 at 0822, Until Tue11/02/22 at 0828, Intraprocedure 0822 (Given - Provid er: Mao Hickman MD) bupivacaine 0.5 % injection (MARCKRISTEL CARLSON) (CANCELED) X (OR/PROCEDURE) PRN, Starting on Tue11/02/22 at 0822, Until Tue11/02/22 at 0828, Intraprocedure 0822 (Given - Provid er: Mao Hickman MD) iopamidol 41 % intrathecal solution (ISOVUE-M 200) (CANCELED) X (OR/PROCEDURE) PRN, Starting on Tue11/02/22 at 0821, Until Tue11/02/22 at 0828, Intraprocedure 0821 (Given - Provid er: Mao Hickman MD) lidocaine 10 mg/mL (1 %) injection (XYLOCAINE) (CANCELED) X (OR/PROCEDURE) PRN, Starting on Tue11/02/22 at 0818, Until Tue11/02/22 at 0828, Intraprocedure 0818 (Given - Provid er: Mao Hickman MD) PRN Medication Order 11/02/2022 11/03/2022 11/04/2022 bupivacaine 0.5 % injection (MARCAINE MDV) (CANCELED) X (OR/PROCEDURE) PRN, Starting on Tue11/04/22 at 1025, Until Ana 11/04/22 at 1036, Intraprocedure 1025 (Given - Provid er: Mao Hickman MD) lidocaine 10 mg/mL (1 %) injection (XYLOCAINE) (CANCELED) X (OR/PROCEDURE) PRN, Starting on Ana 11/04/22 at 1017, Until Ana 11/04/22 at 1036, Intraprocedure 1017 (Given - Provid er: Mao Hickman MD) PRN Medication Order 11/07/2022 11/08/2022 11/09/2022 bacteriostatic sodium chloride 0.9% injection (CANCELED) X (OR/PROCEDURE) PRN, Starting on Tue11/09/22 at 0929, Until Tue11/09/22 at 0935, Intraprocedure 09 (Given - Provid er: Mao Hickman MD) bupivacaine 0.5 % injection (MARCAINE MDV) (CANCELED) X (OR/PROCEDURE) PRN, Starting on Tue11/09/22 at 0929, Until Tue11/09/22 at 0935, Intraprocedure 09 (Given - Provid er: Mao Hickman MD) iopamidol 41 % intrathecal solution (ISOVUE-M 200) (CANCELED) X (OR/PROCEDURE) PRN, Starting on Tue11/09/22 at 0928, Until Tue11/09/22 at 0935, Intraprocedure 0928 (Given - Provid er: Mao Hickman MD) lidocaine 10 mg/mL (1 %) injection (XYLOCAINE) (CANCELED) X (OR/PROCEDURE) PRN, Starting on Tue11/09/22 at 0927, Until Tue11/09/22 at 0935, Intraprocedure 09 (Given - Provid er: Mao Hickman MD) PRN Medication Order 11/14/2022 11/15/2022 11/16/2022 BUPivacaine HCl injection (SENSORCAINE) (CANCELED) X (OR/PROCEDURE) PRN, Starting on Tue11/16/22 at 1438, Until Tue11/16/22 at 1444, Intraprocedure 1438 (Given - Provid er: Mao Hickman MD) iopamidol 41 % intrathecal solution (ISOVUE-M 200) (CANCELED) X (OR/PROCEDURE) PRN, Starting on Tue11/16/22 at 1438, Until Tue11/16/22 at 1444, Intraprocedure 1438 (Given - Provid er: Mao Hickman MD) lidocaine 10 mg/mL (1 %) injection (XYLOCAINE) (CANCELED) X (OR/PROCEDURE) PRN, Starting on Tue11/16/22 at 1435, Until Tue11/16/22 at 1444, Intraprocedure 1435 (Given - Provid er: Mao Hickman MD) PRN Medication Order 10/30/2023 10/31/2023 11/01/2023 BUPivacaine HCl injection (SENSORCAINE) (CANCELED) X (OR/PROCEDURE) PRN, Starting on Tue11/01/23 at 0844, Until Tue11/01/23 at 0851, Intraprocedure 0844 (Given - Provid er: Mao Hickman MD) iopamidol 41% intrathecal solution (ISOVUE-M 200) (CANCELED) X (OR/PROCEDURE) PRN, Starting on Tue11/01/23 at 0843, Until Tue11/01/23 at 0851, Intraprocedure 0843 (Given - Provid er: Mao Hickman MD) lidocaine 10 mg/mL (1 %) injection (XYLOCAINE) (CANCELED) X (OR/PROCEDURE) PRN, Starting on Tue11/01/23 at 0841, Until Tue11/01/23 at 0851, Intraprocedure 0841 (Given - Provid er: Mao Hickman MD) FOR RECORDS PERTAINING TO PATIENTS WHO ARE OR HAVE BEEN ENROLLED IN A CHEMICAL DEPENDENCY/SUBSTANCEABUSE PROGRAM, SOME INFORMATION MAY BE OMITTED. This clinical summary was aggregated from multiple sources. Caution should be exercised in using it in the provision of clinical care. This summary normalizes information from multiple sources, and as a consequence, information in this document may materially change the coding, format and clinical context of patient data. In addition, data may be omitted in some cases. CLINICAL DECISIONS SHOULD BE BASED ON THE PRIMARY CLINICAL RECORDS. [employer] [facility]. provides no warranty or guarantee of the accuracy or completeness of information in this document.
== END 2023-11-12 21:10 | disposition left against medical advice (07) ==
LOC: ED 21:18
PROVIDERS: PCP Family Medicine
DX: F19.19 Other psychoactive substance abuse with unspecified psychoactive substance-induced disorder (principal)

== ENCOUNTER → 2024-02-03 | Outpatient (CLI) | payer MEDICARE, MEDICAID, SELFPAY | END | disposition home or self-care (01) | LOC: LABSPEC 12:32 | PROVIDERS: PCP Family Medicine; Referring Provider Family Medicine; Visit Provider Family Medicine | DX: L02.91 Cutaneous abscess, unspecified (principal) | CPT/HCPCS: 87070; 87077; 87186; 87205 ==

== ENCOUNTER → 2024-06-06 | Outpatient (CLI) | payer MEDICARE, MEDICAID, SELFPAY ==
--- NOTE | 2024-06-06 07:50 | MRI_ITS ---
STUDY: MRI RIGHT SHOULDER REASON FOR EXAM: Female, 48 years old. Pain - rule out re-tear of rotator cuff. TECHNIQUE: Standardized fat and water weighted pulse sequences were obtained in all 3 orthogonal planes. COMPARISON: Right shoulder MRI dated 03/09/2023. FINDINGS: There are postoperative changes related to rotator cuff repair surgery, with multiple anchors in the greater tuberosity of the humeral head. There are recurrent full-thickness tears of the distal supraspinatus and infraspinatus tendons, with 3.8 cm medial tendon retraction Normal subscapularis tendon. Normal teres minor tendon. There is mild atrophy and fatty infiltration of the supraspinatus muscle. There is moderate atrophy and fatty infiltration of the infraspinatus and teres minor muscles. Normal subscapularis muscle. There is superior migration of the humeral head with respect to the glenoid with complete loss of the acromiohumeral space. There is a small glenohumeral joint effusion with fluid communicating into the subacromial-subdeltoid bursa. Normal biceps labral complex. Normal intracapsular long biceps tendon. Normal labrum. Normal capsulo-ligamentous complex. Normal rotator interval. There is hypertrophic acromioclavicular arthrosis, with inferior osteophyte formation, with mild effacement of the torn supraspinatus tendon (coronal T2 series 6 image 14). There is a Type II morphology (curved), with a neutral orientation. Normal visualized coracohumeral and coracoacromial ligaments. Normal quadrilateral space. Normal axillary space. Normal deltoid muscle. Normal trapezius muscle. 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 Moderate atrophy and fatty infiltration of the infraspinatus and teres minor muscles. Superior migration of the humeral head with complete loss of the acromiohumeral space. Small glenohumeral joint effusion with fluid communicating into the subacromial-subdeltoid bursa. Hypertrophic acromioclavicular arthrosis, with inferior osteophyte formation, with mild effacement of the torn supraspinatus tendon. Electronically Signed: Zachary Patel MD at 14:33 EDT ,
== END | disposition home or self-care (01) ==
LOC: MRI 07:42
PROVIDERS: PCP Family Medicine; Referring Provider Orthopaedic Surgery; Visit Provider Orthopaedic Surgery
DX: Z98.890 Other specified postprocedural states (principal); M25.611 Stiffness of right shoulder, not elsewhere classified
CPT/HCPCS: 73221

== ENCOUNTER → 2024-07-18 | Outpatient (CLI) | payer MEDICARE, MEDICAID, SELFPAY | END | disposition home or self-care (01) | LOC: MTRAD 08:46 | PROVIDERS: PCP Family Medicine; Referring Provider Family Medicine; Visit Provider Family Medicine | DX: M25.562 Pain in left knee (principal) | CPT/HCPCS: 73564 ==

== ENCOUNTER → 2025-04-12 | Outpatient (CLI) | payer MEDICARE, SELFPAY ==
[2025-04-12 10:27] LABS: Hematocrit 42.5 % (37-47); Hemoglobin 13.9 g/dL (12.0-15.0); Immature Granulocytes Count 0.020 X10^3/uL (0.0-0.0); Mean Corp Hgb Conc 32.7 g/dL (32-36); Mean Corpuscular Volume 100.2 fL (81-99); Mean Platelet Vol. 10.8 fl (6.2-12.0); NRBC Flagged by Analyzer 0 % (0-5); Platelet Count 244 K/mm3 (150-450); RBC Distribution Width CV 13.0 % (11.6-14.6); RBC Distribution Width SD 47.8 fl (35.1-43.9); Red Blood Count 4.24 M/mm3 (4.2-5.4); White Blood Count 6.0 K/mm3 (4.4-11.0)
[2025-04-12 11:38] LABS: Free T3 2.4 pg/mL (2.18-3.98)
== END | disposition home or self-care (01) ==
LOC: MFPLAB 09:12
PROVIDERS: PCP Family Medicine; Visit Provider Family Medicine
DX: D64.9 Anemia, unspecified (principal); E03.9 Hypothyroidism, unspecified
CPT/HCPCS: 36415; 84439; 84443; 84481; 85025